=== PATIENT | female | born 1955 | race Caucasian/White ===

== ENCOUNTER 2023-01-03 11:36 | Outpatient (OUT) | payer MEDICARE, SELFPAY ==
[2023-01-03 12:05] LABS: Basophils Percent Auto 0.4 % (0.2-2.0); Eosinophils Absolute Auto 0.1 10^3/uL (0.0-0.7); Eosinophils Percent Auto 1.3 % (0.9-7.0); Hematocrit 36.3 % (36.0-48.0); Hemoglobin 12.2 g/dL (12.0-16.0); Immature Granulocytes Abs Auto 0.02 10^3/uL (0.00-0.03); Immature Granulocytes Pct Auto 0.4 % (0.0-0.5); Lymphocytes Absolute Auto 0.8 10^3/uL (1.2-3.8); Lymphocytes Percent Auto 16.7 % (20.5-60.0); Mean Corpuscular HGB Conc 33.6 g/dL (29.9-35.2); Mean Corpuscular Volume 89.2 fL (81.0-99.0); Mean Platelet Volume 9.9 fL (9.5-13.5); Monocytes Absolute Auto 0.4 10^3/uL (0.3-0.8); Monocytes Percent Auto 9.3 % (1.7-12.0); Neutrophils Absolute Auto 3.3 10^3/uL (1.4-6.5); Neutrophils Percent Auto 71.9 % (43.0-75.0); Platelet Count 175 10^3/uL (150-450); Red Blood Count 4.07 10^6/uL (4.20-5.40); Red Cell Distribution Width 13.1 % (11.0-15.0); White Blood Count 4.5 10^3/uL (4.0-11.0)
[2023-01-03 12:53] LABS: Estimated Average Glucose 105 mg/dL; Glycohemoglobin A1C 5.3 % (4.5-6.2)
[2023-01-03 13:31] LABS: Free T4 0.91 ng/dL (0.76-1.46)
[2023-01-03 13:51] LABS: Alanine Aminotransferase 18 U/L (14-59); Albumin Globulin Ratio 1.2; Albumin Level 3.8 g/dL (3.4-5.0); Alkaline Phosphatase 64 U/L (46-116); Anion Gap 8.8; Aspartate Amino Transferase 16 U/L (15-37); BUN Creatinine Ratio 15.1; Bilirubin Direct 0.1 mg/dL (0.0-0.2); Bilirubin Total 0.7 mg/dL (0.2-1.0); Calcium 8.3 mg/dL (8.5-10.1); Carbon Dioxide 29.5 mmol/L (21.0-32.0); Chloride 103 mmol/L (98-107); Chol HDL Ratio 2.5; Cholesterol 222 mg/dL (<=200); Estimated GFR (African America >60 (>=60); Estimated GFR (Non-African Ame >60 (>=60); Free T3 1.71 pg/mL (2.18-3.98); Globulin 3.2 g/dL; Glucose 81 mg/dL (74-106); HDL Cholesterol 88 mg/dL (40-60); Potassium 3.3 mmol/L (3.5-5.1); Sodium 138 mmol/L (136-145); Triglycerides 27 mg/dL (<=150); VLDL CHOLESTEROL 5.4 mg/dL
== END 2023-01-03 11:37 | disposition home or self-care (01) ==
LOC: LAB 11:41
PROVIDERS: PCP Family Medicine; Visit Provider Family Medicine
DX: E55.9 Vitamin D deficiency, unspecified (principal); Z79.899 Other long term (current) drug therapy; R73.03 Prediabetes; E78.5 Hyperlipidemia, unspecified; E03.9 Hypothyroidism, unspecified
CPT/HCPCS: 36415; 80048; 80061; 80076; 82306; 83036; 84439; 84443; 84481; 85025

== ENCOUNTER 2023-05-10 07:48 | Outpatient (OUT) | payer MEDICARE, SELFPAY ==
--- NOTE | 2023-05-10 07:50 | MM_ITS ---
Patient Name: LITO BONILLA MR#: [id number] : 1955 Exam Date: 05/10/2023 Ordering Doctor: DR Phoenix Gannon . RADIOLOGY REPORT PROCEDURE: MM TOMOSYNTHESIS SCREENING BI COMPARISON: MG MAMM SCREEN 3D NEETA CAD, 05/09/2022. MG MAMM SCREEN 3D NEETA CAD, 05/08/2021. MG MAMM SCREEN NEETA W CAD, 05/03/2020. MG MAMM SCREEN NEETA W CAD, 03/29/2017. INDICATIONS: Screening Calculator Name NCI Breast Cancer Risk Assessment Tool 5 Year Breast Cancer Risk 1.10% Lifetime Breast Cancer Risk 3.80% Personal Breast Cancer No Personal Ovarian Cancer No Treatments None Family Cancers Father with lung cancer at age 43; Brother with liver cancer at age 65; Brother with colon/lung cancer at age 46; Brother with lung cancer at age 74. LOCATION: [facility] BREAST COMPOSITION: Scattered areas fibroglandular density. FINDINGS: DIAGNOSTIC CATEGORY 1--NEGATIVE. RIGHT BREAST: No significant suspicious finding. No significant change has occurred. LEFT BREAST: No significant suspicious finding. No significant change has occurred. RECOMMENDATIONS: ROUTINE MAMMOGRAM AND CLINICAL EVALUATION IN 12 MONTHS. PLEASE NOTE: A NORMAL MAMMOGRAM DOES NOT EXCLUDE THE POSSIBILITY OF BREAST CANCER. A CLINICALLY SUSPICIOUS PALPABLE LUMP SHOULD BE BIOPSIED. Dictated by: Bhavin Johnson M.D. on 05/10/2023 at 14:48 Approved by: Bhavin Johnson M.D. on 05/10/2023 at 14:49
== END 2023-05-10 07:49 | disposition home or self-care (01) ==
LOC: MAMMO 07:48
PROVIDERS: PCP Family Medicine; Visit Provider Family Medicine
DX: Z12.31 Encounter for screening mammogram for malignant neoplasm of breast (principal); Z80.1 Family history of malignant neoplasm of trachea, bronchus and lung; Z80.8 Family history of malignant neoplasm of other organs or systems; Z80.0 Family history of malignant neoplasm of digestive organs
CPT/HCPCS: 77063; 77067

== ENCOUNTER 2023-06-27 10:48 | Outpatient (OUT) | payer MEDICARE, SELFPAY ==
--- OUTSIDE RECORDS SUMMARY | 2023-06-27 11:00 | XMS_ITS | CCD ---
Author Name Unknown Address [address] [place] [address] Organization [facility] Care Team Providers Care Landscaping Specialist Name Role Phone KieshaJosyKelsey Unavailable Panda Hicks Unavailable Panda Santos Unavailable PASCUAL, DR PHOENIX Montaño Primary Care Unavailable TWAN, DR BHAVIN Licona Consulting Unavailable NADERER, DR PHOENIX Montaño Attending Unavailable NADERER, DR PHOENIX Montaño Admitting Unavailable NADERER, DR PHOENIX Montaño Consulting Unavailable NADERER, DR PHOENIX Montaño Admitting Unavailable NADERER, DR PHOENIX Montaño Primary Care Unavailable NADERER, DR PHOENIX Montaño Consulting Unavailable NADERER, DR PHOENIX Montaño Attending Unavailable NADERER, DR PHOENIX Montaño Admitting Unavailable NADERER, DR PHOENIX Montaño Primary Care Unavailable NADERER, DR PHOENIX Montaño Consulting Unavailable NADERER, DR PHOENIX Montaño Attending Unavailable Nadtena, Phoenix Montaño Primary Care Provider AMANDA CHRISTINE Attending Unavailable PASCUAL, PHOENIX Montaño Primary Care Unavailable Medications Current Medications Medication Drug Class(es) Dates Sig (Normalized) Sig (Original) calcium lactate (1 source) Calcium Lactate Active Vitamin D (1 source) Vitamin D Active Completed/Discontinued Medications Medication Drug Class(es) Dates Sig (Normalized) Sig (Original) Calcium Carbonate / vitamin D3 (2 sources) CALCIUM CARBONATE/VITAMIN D3 (CALCIUM + D ORAL) Take by mouth. 0 Active CALCIUM CARBONAT E/VITAMIN D3 (VITAMIN D-3 ORAL) Take by mouth. 0 Active Comment on above: Take by mouth. hyaluronate (2 sources) Start: 09-28-2020 Gel-One September 3 mL levothyroxine (10 sources) l-Thyroxine LEVOTHYROXINE SO DIUM (LEVOTHYROXINE ORAL) Take by mouth. 0 Active take 1 tablet by mouth once mely y Levothyroxine Sodium 75 MCG TAKE 1 TABLET BY MOUTH DAILY Oral for 60 Active Comment on above: Take by mouth. predniSONE 20 mg oral tablet (4 sources) Start: 05-01-2021 take 1 tablet by mouth every twenty-four hours predniSONE 20 MG 1 tablet Orally Once a day for 14 days Apr, Not-Taking sucralfate 1000 mg oral tablet (5 sources) Aluminum Complex Start: 04-11-2021 take 1 tablet by mouth every eight hours Sucralfate 1 GM 1 TABLET Orally THREE TIMES A DAY for 30 day(s) Mar, Not-Taking Suprep Bowel Prep Kit 17.5-3.13-1.6 GM/180ML (7 sources) Start: 10-13-2020 Suprep Bowel Prep Kit 17.5-3.13-1.6 GM/180ML 177 ML DIRECTED AT 4 PM AND 11 PM Orally Twice a day for 1 day(s) September, Not-Taking Triamcinolone (4 sources) Corticosteroid Start: 02-23-2021 Kenalog -40 mg Feb, 40 mg Start: 09-28-2020 Kenalog -40 mg September, 40 mg Problems Active Problems Problem Classification Problem Date Documented Da te Episodic/Chronic Abdominal pain (6 sources) Unspecified abdominal pain; Translations: [Abdominal pain] Onset: 1 Resolved: 2 Episodic Disorders of lipid metabolism (1 source) Hyperlipidemia, unspecified; Translations: [HYPERLIPIDEMIA UNSPECIFIED] Onset: 2 Chronic Esophageal disorders (11 sources) Gastroesophageal reflux disease; Translations: [Gastro-esophageal reflux disease without esophagitis] Onset: 2 Resolved: 2 Chronic Miscellaneous mental health disorders (2 sources) Psychophysiologic insomnia; Translations: [Psychophysiologic insomnia] Onset: 2 Resolved: 2 Chronic Nutritional deficiencies (5 sources) Vitamin D deficiency, unspecified; Translations: [VITAMIN D DEFICIENCY UNSPECIFIED] Onset: 2 Chronic Osteoarthritis (9 sources) Osteoarthritis of right knee joint; Translations: [Unilateral primary osteoarthritis, right knee] Chronic Other gastrointestinal disorders (9 sources) Irritable bowel syndrome; Translations: [Mixed irritable bowel syndrome] Chronic Other gastrointestinal disorders (4 sources) Irritable bowel syndrome with diarrhea; Translations: [Irritable bowel syndrome with diarrhea] Chronic Other gastrointestinal disorders (2 sources) Irritable bowel syndrome with diarrhea Onset: 2 Resolved: 2 Chronic Other gastrointestinal disorders (1 source) Mixed irritable bowel syndrome Onset: 2 Resolved: 2 Chronic Other gastrointestinal disorders (1 source) Rectal discharge; Translations: [Other specified symptoms and signs involving the digestive system and abdomen] Episodic Other liver diseases (3 sources) Lesion of liver; Translations: [Liver disease, unspecified] Chronic Other liver diseases (1 source) Liver disease, unspecified Onset: 2 Resolved: 2 Chronic Other nutritional; endocrine; and metabolic disorders (9 sources) Intolerance to lactose; Translations: [Lactose intolerance, unspecified] Chronic Other nutritional; endocrine; and metabolic disorders (1 source) Lactose intolerance, unspecified Onset: 2 Resolved: 2 Chronic Other screening for suspected conditions (not mental disorders or infectious disease) (4 sources) Encounter for screening mammogram for malignant neoplasm of breast; Translations: [ENC SCR MAMMO MALIG NEOPLASM BREAST] Onset: 2 Episodic Residual codes; unclassified (1 source) Sleep apnea; Translations: [Sleep apnea, unspecified] Chronic Residual codes; unclassified (1 source) Daytime somnolence; Translations: [Other hypersomnia] Chronic Residual codes; unclassified (1 source) Obstructive sleep apnea syndrome; Translations: [Obstructive sleep apnea (adult) (pediatric)] Chronic Residual codes; unclassified (1 source) Other hypersomnia Onset: 2 Resolved: 2 Chronic Residual codes; unclassified (1 source) Obstructive sleep apnea (adult) (pediatric) Onset: 2 Resolved: 2 Chronic Residual codes; unclassified (1 source) Family history of malignant neoplasm of digestive organs; Translations: [FAM HX MALIG NEOPLASM DIGESTIV ORGN] Onset: 2 Episodic Residual codes; unclassified (1 source) Family history of malignant neoplasm of trachea, bronchus and lung; Translations: [FAM HX MALIG NEOPLSM TRACH BRON LNG] Onset: 2 Episodic Residual codes; unclassified (1 source) Family history of malignant neoplasm of other organs or systems; Translations: [FAM HX MALIG NEOPLASM OTH ORGN/SYS] Onset: 2 Episodic Thyroid disorders (7 sources) Acquired hypothyroidism; Translations: [Hypothyroidism, unspecified] Onset: 2 Resolved: 2 Chronic Past or Other Problems Problem Classification Problem Date Documented Da te Episodic/Chronic Abdominal hernia (1 source) Ventral hernia without obstruction or gangrene Onset: 06-15-2021 Resolved: 06-15-2021 Episodic Diabetes mellitus without complication (1 source) Prediabetes; Translations: [PREDIABETES] Onset: 10-25-2021 Episodic Other aftercare (1 source) Other penitentiary (current) drug therapy; Translations: [OTH JAIL CURRENT DRUG THERAPY] Onset: 10-25-2021 Episodic Other and unspecified benign neoplasm (1 source) Hemangioma of intra-abdominal structures Onset: 07-18-2021 Resolved: 07-18-2021 Episodic Other connective tissue disease (1 source) Trochanteric bursitis, left hip; Translations: [Trochanteric bursitis, left hip M70.62] Onset: 02-23-2021 Resolved: 02-23-2021 Episodic Other gastrointestinal disorders (2 sources) Diarrhea, unspecified; Translations: [Diarrhea R19.7] Onset: 03-20-2021 Resolved: 04-10-2021 Episodic Other non-traumatic joint disorders (1 source) Pain in left hip; Translations: [Left hip pain M25.552] Onset: 02-23-2021 Resolved: 02-23-2021 Episodic Other nutritional; endocrine; and metabolic disorders (1 source) Abnormal weight loss Onset: 04-10-2021 Resolved: 04-10-2021 Episodic Results Test Name Value Interpretation Reference Range Facility [facility] 07-30-2022 [facility] Office Visit (MARCO A ) ALESHA BONILLA ([id number]) 1955 F Date Time Provider Department 07/30/22 10:00 AM AMANDA CHRISTINE During your visit today, we recorded the following information about you: Temperature Pulse Blood pressure Weight 97.8 degrees 65/minute 109/59 65.8 kg Height 1.676 m Amanda Christine PA-C 07/30/2022 11:25 AM Signed COLORECTAL SURGERY New/Consult Alesha Bonilla 67 year old Chief Complaint: mucous drainage History of Present Illness: Alesha Bonilla is a 67 year old female coming to the [facility] office in regards to mucous drainage/leakage.[place] ent notes clear sticky discharge that is odorous after bowel movement and/or shower. She has a history of issues with diarrhea in the past ( 2 years ago). In which a CT scan,MRI and colonoscopy ( brought to front services agent to be scanned in) were completed and did not show anything concerning. Today she reports: Onset of issues: 2 years ago diarrhea started, sticky discharge is maybe a year Stool frequency: used to be everyday, now not normal bowel movements Stool type: most of the time like soft serve ice cream Stool straining: no Incomplete evacuation: sometimes doesn't feel like she empties them Current bowel regimen:no but started eating a fibrous breakfast Using hemorrhoid cream Use of enemas or suppositories: no Abdominal pressure/pain: no Anorectal pain: sometimes will feel like pressure Feelings of prolapse :no but maybe little hemorrhoids Do you have accidental bowel leakage, fecal incontinence, or urgency with bowel movements? -mucous leakage feels like it is in her gluteal cleft, not every day -no fecal incontinence except sometimes with sneezing Blood or mucous: bleeding sometimes , if she is going several times Hx of /vaginal deliveries: 3 kids, vaginal births Issues with urination: no Fevers or chills: no Overall getting better/worse/staying the same: staying the same Previous anorectal surgery or invasive procedures: no, did not get the hemorrhoidectomy Family hx of Crohns/UC/colitis: no Family of colon or rectal cancer: no Colonoscopy/flex sigmoidoscopy in the past: a little over a year ago, normal per report Dr. Turner General Surgery 02/15/2021: IMPRESSION 1. Rectal bleeding most likely secondary to hemorrhoids rule out colon cancer polyps 2. Abdominal bloating 3. Ventral hernia incarcerated 4. Chronic diarrhea ? ASSESSMENT AND PLAN Colonoscopy and EGD with possible biopsy or polypectomy. I discussed the risks, benefits, alternatives to the above which may include perforation or bleeding or risks of anesthesia. They understood all the above and wished to proceed. Patient also warned about possible anal stricture. She understands she should take a stool softener twice daily and bulk laxative fiber supplement twice daily and Sitz baths 3 times a day and after a bowel movement for the 1st few weeks. She should take the stool softener and bulk fiber for 6 weeks. Hemorrhoidectomy with LigaSure device at time of colonoscopy. Risks benefits alternatives to procedure may include infection, bleeding, temporary incontinence, or pain. No past medical history on file. No past surgical history on file. Current Outpatient Medications Medication Sig Dispense Refill LEVOTHYROXINE SODIUM (LEVOTHYROXINE ORAL) Take by mouth. CALCIUM CARBONATE/VITAMIN D3 (CALCIUM + D ORAL) Take by mouth. CALCIUM CARBONATE/VITAMIN D3 (VITAMIN D-3 ORAL) Take by mouth. (Patient not taking: Reported on 07/30/2022) No current facility-administered medications for this visit. ALLERGIES No Known Allergies No family history on file. Social History Tobacco Use Smoking status: Never Smokeless tobacco: Never Substance Use Topics Alcohol use: Not Currently Drug use: Never Review of Systems / PACC screen: Do you have difficulty climbing a full flight of stairs without feeling short of breath? no Do you require oxygen for your breathing or have your gone to an emergency department because of breathing problems? no Are you on dialysis or have you been told that your kidneys do not work well as they should? no Do have an implanted cardiac device (pacemaker, defibrillator etc.) that has not been checked in the last 6 months? no Have you had an organ transplant? no Have you been told that you had excessive bleeding during surgical procedures or do you take blood thinning medications other than aspirin? no Have you ever had a heart attack, heart stents/surgery, valve problems, or other heart problems? no Have you had a stroke, seizures, or unexplained loss of consciousness? no Do you have a neurologic condition like Parkinson's disease or multiple sclerosis? no Have you or a blood relative had a life-threatening reaction to anesthesia? no Do you have cirrhosis of the liver or other liver disea (more content not included)... Normal [facility] HISTORY PHYSICALon HISTORY PHYSICAL HNO ID: [id number] Author: Amanda Christine PA-C Service: ? Author Type: Physician Windows Deployment Technician Type: HANDP Filed: 07/30/2022 11:25 AM Note Text: COLORECTAL SURGERY New/Consult Alesha Bonilla 67 year old Chief Complaint: mucous drainage History of Present Illness: Alesha Bonilla is a 67 year old female coming to the [facility] office in regards to mucous drainage/leakage.[place] ent notes clear sticky discharge that is odorous after bowel movement and/or shower. She has a history of issues with diarrhea in the past ( 2 years ago). In which a CT scan,MRI and colonoscopy ( brought to front services agent to be scanned in) were completed and did not show anything concerning. Today she reports: Onset of issues: 2 years ago diarrhea started, sticky discharge is maybe a year Stool frequency: used to be everyday, now not normal bowel movements Stool type: most of the time like soft serve ice cream Stool straining: no Incomplete evacuation: sometimes doesn't feel like she empties them Current bowel regimen:no but started eating a fibrous breakfast Using hemorrhoid cream Use of enemas or suppositories: no Abdominal pressure/pain: no Anorectal pain: sometimes will feel like pressure Feelings of prolapse :no but maybe little hemorrhoids Do you have accidental bowel leakage, fecal incontinence, or urgency with bowel movements? -mucous leakage feels like it is in her gluteal cleft, not every day -no fecal incontinence except sometimes with sneezing Blood or mucous: bleeding sometimes , if she is going several times Hx of /vaginal deliveries: 3 kids, vaginal births Issues with urination: no Fevers or chills: no Overall getting better/worse/staying the same: staying the same Previous anorectal surgery or invasive procedures: no, did not get the hemorrhoidectomy Family hx of Crohns/UC/colitis: no Family of colon or rectal cancer: no Colonoscopy/flex sigmoidoscopy in the past: a little over a year ago, normal per report Dr. Turner General Surgery 02/15/2021: IMPRESSION 1. Rectal bleeding most likely secondary to hemorrhoids rule out colon cancer polyps 2. Abdominal bloating 3. Ventral hernia incarcerated 4. Chronic diarrhea ? ASSESSMENT AND PLAN Colonoscopy and EGD with possible biopsy or polypectomy. I discussed the risks, benefits, alternatives to the above which may include perforation or bleeding or risks of anesthesia. They understood all the above and wished to proceed. Patient also warned about possible anal stricture. She understands she should take a stool softener twice daily and bulk laxative fiber supplement twice daily and Sitz baths 3 times a day and after a bowel movement for the 1st few weeks. She should take the stool softener and bulk fiber for 6 weeks. Hemorrhoidectomy with LigaSure device at time of colonoscopy. Risks benefits alternatives to procedure may include infection, bleeding, temporary incontinence, or pain. No past medical history on file. No past surgical history on file. Current Outpatient Medications Medication Sig Dispense Refill LEVOTHYROXINE SODIUM (LEVOTHYROXINE ORAL) Take by mouth. CALCIUM CARBONATE/VITAMIN D3 (CALCIUM + D ORAL) Take by mouth. CALCIUM CARBONATE/VITAMIN D3 (VITAMIN D-3 ORAL) Take by mouth. (Patient not taking: Reported on 07/30/2022) No current facility-administered medications for this visit. ALLERGIES No Known Allergies No family history on file. Social History Tobacco Use Smoking status: Never Smokeless tobacco: Never Substance Use Topics Alcohol use: Not Currently Drug use: Never Review of Systems / PACC screen: Do you have difficulty climbing a full flight of stairs without feeling short of breath? no Do you require oxygen for your breathing or have your gone to an emergency department because of breathing problems? no Are you on dialysis or have you been told that your kidneys do not work well as they should? no Do have an implanted cardiac device (pacemaker, defibrillator etc.) that has not been checked in the last 6 months? no Have you had an organ transplant? no Have you been told that you had excessive bleeding during surgical procedures or do you take blood thinning medications other than aspirin? no Have you ever had a heart attack, heart stents/surgery, valve problems, or other heart problems? no Have you had a stroke, seizures, or unexplained loss of consciousness? no Do you have a neurologic condition like Parkinson's disease or multiple sclerosis? no Have you or a blood relative had a life-threatening reaction to anesthesia? no Do you have cirrhosis of the liver or other liver disease? no Have you had a blood clot within the past year? no Do you take insulin or other injections for diabetes? no Do you have sleep apnea or have you been told you may have sleep apnea? Not sure Do you have other implanted devices (deep brain stimulator, spinal cord stimula (more content not included)... Normal [facility] MG MAMM SCREEN 3D NEETA CADon 05-09-2022 MG MAMM SCREEN 3D NEETA CAD Patient: ALESHA BONILLA Exam Date: 05/09/2022 : 1955 Gender:F Ordering : DR PHOENIX GARNER . Admission #: [id number] Family : Order #: [id number] CLICK HERE TO VIEW EXAM RADIOLOGY REPORT PROCEDURE: MAMMOGRAM SCREENING 3D BILATERAL CAD COMPARISON: MG MAMM SCREEN NEETA W CAD, 05/03/2020. MG MAMM SCREEN NEETA W CAD, 04/30/2019. MG MAMM SCREEN NEETA W CAD, 03/29/2017. MG MAMM SCREEN 3D NEETA CAD, 05/08/2021. INDICATIONS: Screening mammography Calculator Name NCI Breast Cancer Risk Assessment Tool 5 Year Breast Cancer Risk 1.10% Lifetime Breast Cancer Risk 4.00% Personal Breast Cancer No Personal Ovarian Cancer No Treatments None Family Cancers Father with lung cancer at age 43; Brother with liver cancer at age 65; Brother with colon/lung cancer at age 46; Brother with lung cancer at age 74. LOCATION: [facility] BREAST COMPOSITION: Scattered areas fibroglandular density. FINDINGS: DIAGNOSTIC CATEGORY 1--NEGATIVE. RIGHT BREAST: No significant suspicious finding. No significant change has occurred. LEFT BREAST: No significant suspicious finding. No significant change has occurred. RECOMMENDATIONS: ROUTINE MAMMOGRAM AND CLINICAL EVALUATION IN 12 MONTHS. PLEASE NOTE: A NORMAL MAMMOGRAM DOES NOT EXCLUDE THE POSSIBILITY OF BREAST CANCER. A CLINICALLY SUSPICIOUS PALPABLE LUMP SHOULD BE BIOPSIED. Dictated by: Bhavin Johnson M.D. on 05/09/2022 at 10:53 Approved by: Bhavin Johnson M.D. on 05/09/2022 at 10:59 Normal [facility] CBC AUTO DIFFon 10-18-2021 BASO # 0.0 103/ul Normal 0.0-0.1 [facility] Comment on above: Performed By: #### C BC #### [facility] [address] [place] [address] Dr. William García Basophils/100 WBC (Bld) 0.8 % Normal 0.2-2.0 [facility] Comment on above: Performed By: #### C BC #### [facility] [address] [place] [address] Dr. William García EO # 0.1 103/ul Normal 0.0-0.7 [facility] Comment on above: Performed By: #### C BC #### [facility] [address] [place] [address] Dr. William García Eosinophils/100 WBC (Bld) 2.0 % Normal 0.9-7.0 [facility] Comment on above: Performed By: #### C BC #### [facility] [address] [place] [address] Dr. William García Erythrocyte distribution width (RBC) [Ratio] 12.7 % Normal 11.0-15.0 [facility] Comment on above: Performed By: #### C BC #### [facility] [address] [place] [address] Dr. William García Hematocrit (Bld) [Volume fraction] 39.2 % Normal 36.0-48.0 [facility] Comment on above: Performed By: #### C BC #### [facility] [address] [place] [address] Dr. William García Hemoglobin (Bld) [Mass/Vol] 12.8 g/dL Normal 12.0-16.0 [facility] Comment on above: Performed By: #### C BC #### [facility] [address] [place] [address] Dr. William García IG # 0.01 10e3/ul Normal 0.00-0.03 [facility] Comment on above: Performed By: #### C BC #### [facility] [address] [place] [address] Dr. William García IG % 0.2 % Normal 0.0-0.5 [facility] Comment on above: Performed By: #### C BC #### [facility] [address] [place], [place] [id number] Dr. William García LYMPH # 0.9 103/ul Critically low 1.2-3.8 [facility] Comment on above: Performed By: #### C BC #### [facility] [address] [place] [address] Dr. William García Lymphocytes/100 WBC (Bld) 17.4 % Critically low 20.5-60.0 [facility] Comment on above: Performed By: #### C BC #### [facility] [address] [place] [address] Dr. William García MANUAL DIFF REQ NO Normal [facility] Comment on above: Performed By: #### C BC #### [facility] [address] [place] [address] Dr. William García MCH (RBC) [Entitic mass] 30.0 pg Normal 26.7-34.0 [facility] Comment on above: Performed By: #### C BC #### [facility] [address] [place] [address] Dr. William García MCHC (RBC) [Mass/Vol] 32.7 g/dL Normal 29.9-35.2 [facility] Comment on above: Performed By: #### C BC #### [facility] [address] [place] [address] Dr. William García MCV (RBC) [Entitic vol] 91.8 fL Normal 81.0-99.0 [facility] Comment on above: Performed By: #### C BC #### [facility] [address] [place] [address] Dr. William García MONO # 0.5 103/ul Normal 0.3-0.8 [facility] Comment on above: Performed By: #### C BC #### [facility] [address] [place] [address] Dr. William García Monocytes/100 WBC (Bld) 10.7 % Normal 1.7-12.0 [facility] Comment on above: Performed By: #### C BC #### [facility] [address] [place] [address] Dr. William García NEUT # 3.5 103/ul Normal 1.4-6.5 [facility] Comment on above: Performed By: #### C BC #### [facility] [address] [place] [address] Dr. William García Neutrophils/100 WBC (Bld) 68.9 % Normal 43.0-75.0 [facility] Comment on above: Performed By: #### C BC #### [facility] [address] [place] [address] Dr. William García Platelet mean volume (Bld) [Entitic vol] 10.3 fL Normal 9.5-13.5 [facility] Comment on above: Performed By: #### C BC #### [facility] [address] [place] [address] Dr. William García PLT 189 103/ul Normal 150-450 [facility] Comment on above: Performed By: #### C BC #### [facility] [address] [place] [address] Dr. William García RBC 4.27 106/ul Normal 4.20-5.40 [facility] Comment on above: Performed By: #### C BC #### [facility] [address] [place] [address] Dr. William García WBC 5.1 103/ul Normal 4.0-11.0 [facility] Comment on above: Performed By: #### C BC #### [facility] [address] [place] [address] Dr. William García FREE T3on 10-18-2021 FREE T3 2.63 pg/mlL Normal 2.18-3.98 [facility] Comment on above: Performed By: #### F T3, TSH, AST, LIPID, ALT, BMP ####[facility] [id number] [address]Dr. William García FREE T4on 10-18-2021 Free T4 [Mass/Vol] 1.42 ng/dL Normal 0.76-1.46 [facility] Comment on above: Performed By: #### F T4, VITAD #### [facility] [address] [address] [address] William García GLYCOHEMOGLOBIN A1Con 2021 ADA RECOMMENDATION SEE BELOW Normal [facility] Comment on above: Result Comment: ADA RECOMMENDED LIMIT 4.0 - 6.0 ADA THERAPEUTIC TARGET < 7.0 ACTION SUGGESTED > 7.0 Performed By: #### A 1C #### [facility] [address] [address] [address] William García Glucose [Mass/Vol] 105 mg/dL Normal [facility] Comment on above: Performed By: #### A 1C #### [facility] [address] [address] [address] William García HbA1c (Bld) [Mass fraction] 5.3 % Normal 4.5-6.2 [facility] Comment on above: Performed By: #### A 1C #### [facility] [address] [address] [address] William García LIPID PROFILEon 10-18-2021 CHOL-HDL RATIO NORM SEE BELOW Normal [facility] Comment on above: Result Comment: 3.3 - 4.4 LOW RISK 4.4 - 7.1 AVERAGE RISK 7.1 - 11.0 MODERATE RISK >11.0 HIGH RISK Performed By: #### F T3, TSH, AST, LIPID, ALT, BMP ####[facility] [address] [id number] García Cholesterol [Mass/Vol] 222 mg/dL Critically high <=200 [facility] Comment on above: Performed By: #### F T3, TSH, AST, LIPID, ALT, BMP ####[facility] [address] [id number] García Cholesterol in HDL [Mass/Vol] 76 mg/dL Critically high 40-60 [facility] Comment on above: Performed By: #### F T3, TSH, AST, LIPID, ALT, BMP ####[facility] [address] [id number]. William García Cholesterol in LDL [Mass/Vol] 136.4 mg/dL Normal [facility] Comment on above: Performed By: #### F T3, TSH, AST, LIPID, ALT, BMP ####[facility] [address] [id number]. William García Cholesterol.total/Cho lesterol in HDL [Mass ratio] 2.9 {ratio} Normal [facility] Comment on above: Performed By: #### F T3, TSH, AST, LIPID, ALT, BMP ####[facility] [address] [address]Dr. William García HDL NORMAL > or = 60 mg/dl - LO W CARDIOVASCULAR RISK <40 mg/dl - HIGH CARDIOVASCULAR RISK Normal [facility] Comment on above: Performed By: #### F T3, TSH, AST, LIPID, ALT, BMP ####[facility] [address] [address]Dr. William García LDL CALC NORMAL SEE BELOW Normal [facility] Comment on above: Result Comment: <100 mg/dl OPTIMAL 100 - 129 mg/dl NEAR OR ABOVE OPTIMAL 130 - 159 mg/dl BORDERLINE HIGH 160 - 189 mg/dl HIGH >190 mg/dl VERY HIGH Performed By: #### F T3, TSH, AST, LIPID, ALT, BMP ####[facility] [address] [address]Dr. William García Triglyceride [Mass/Vol] 48 mg/dL Normal <=150 [facility] Comment on above: Performed By: #### F T3, TSH, AST, LIPID, ALT, BMP ####[facility] [address] [address]Dr. William García VLDL CALC 9.6 mg/dL Normal [facility] Comment on above: Performed By: #### F T3, TSH, AST, LIPID, ALT, BMP ####[facility] [address] [address]Dr. William García PROF CHEM 8 (BAS METB)on Anion gap [Moles/Vol] 11.6 mmol/L Normal [facility] Comment on above: Performed By: #### F T3, TSH, AST, LIPID, ALT, BMP ####[facility] [address] [address]Dr. William García Calcium [Mass/Vol] 9.0 mg/dL Normal 8.5-10.1 [facility] Comment on above: Performed By: #### F T3, TSH, AST, LIPID, ALT, BMP ####[facility] [address] [address]Dr. William García Chloride [Moles/Vol] 106 mmol/L Normal 98-107 [facility] Comment on above: Performed By: #### F T3, TSH, AST, LIPID, ALT, BMP ####[facility] [address] [address]Dr. William García CO2 [Moles/Vol] 28.4 mmol/L Normal 21.0-32.0 [facility] Comment on above: Performed By: #### F T3, TSH, AST, LIPID, ALT, BMP ####[facility] [address] [address]Dr. William García Creatinine [Mass/Vol] 0.64 mg/dL Normal 0.55-1.02 [facility] Comment on above: Performed By: #### F T3, TSH, AST, LIPID, ALT, BMP ####[facility] [address] [address]Dr. William García EGFR-AF WALLISIAN >60 Normal >=60 [facility] Comment on above: Performed By: #### F T3, TSH, AST, LIPID, ALT, BMP ####[facility] [address] [address]Dr. William García EGFR-NON AF WALLISIAN >60 Normal >=60 [facility] Comment on above: Performed By: #### F T3, TSH, AST, LIPID, ALT, BMP ####[facility] [address] [address]Dr. William García Glucose [Mass/Vol] 87 mg/dL Normal 74-106 [facility] Comment on above: Performed By: #### F T3, TSH, AST, LIPID, ALT, BMP ####[facility] [address] [address]Dr. William García Potassium [Moles/Vol] 4.0 mmol/L Normal 3.5-5.1 [facility] Comment on above: Performed By: #### F T3, TSH, AST, LIPID, ALT, BMP ####[facility] [address] [address]Dr. William García Sodium [Moles/Vol] 142 mmol/L Normal 136-145 [facility] Comment on above: Performed By: #### F T3, TSH, AST, LIPID, ALT, BMP ####[facility] [address] [address]Dr. William García Urea nitrogen [Mass/Vol] 14.0 mg/dL Normal 7.0-18.0 [facility] Comment on above: Performed By: #### F T3, TSH, AST, LIPID, ALT, BMP ####[facility] [address] [address]Dr. William García Urea nitrogen/Creatinine [Mass ratio] 21.9 mg/mg Normal [facility] Comment on above: Performed By: #### F T3, TSH, AST, LIPID, ALT, BMP ####[facility] [address] [address]DrBlanca García SGOTon 10-18-2021 AST [Catalytic activity/Vol] 18 U/L Normal 15-37 [facility] Comment on above: Performed By: #### F T3, TSH, AST, LIPID, ALT, BMP #### [facility] [address] [address] DrBlanca García SGPTon 10-18-2021 ALT [Catalytic activity/Vol] 24 U/L Normal 14-59 [facility] Comment on above: Performed By: #### F T3, TSH, AST, LIPID, ALT, BMP ####[facility] [address] [address]DrBlanca García TSHon 10-18-2021 TSH 0.729 uIU/mL Normal 0.358-3.740 [facility] Comment on above: Performed By: #### F T3, TSH, AST, LIPID, ALT, BMP ####[facility] [address] [place], [place] [address]PpDr. William García TSH RANGE SEE BELOW Normal [facility] Comment on above: Result Comment: <0.3 4 UIU/ml HYPERTHYROID 0.34-5.60 UIU/ml EUTHYROID >5.60 UIU/ml HYPOTHYROID Performed By: #### F T3, TSH, AST, LIPID, ALT, BMP ####[facility] [address] [place], [place] [address]CvDr. William García VITAMIN D 25 OHon 10-18-2021 VIT D 25-OH 25.2 ng/mL Normal [facility] Comment on above: Performed By: #### F T4, VITAD #### [facility] [address] [place], [place] [address] Dr. William García VIT D RANGES SEE BELOW Normal [facility] Comment on above: Result Comment: <20 ng/mL Vit D deficient 20 - <30 ng/mL Vit D insufficient 30 - 100 ng/mL Vit D sufficient >100 ng/mL Potential Toxicity Performed By: #### F T4, VITAD #### [facility] [address] [place], [place] [address] Dr. William García MR abdomen wo/w conon 2021 MR abdomen wo/w [place] [address] MRI Report Signed Patient: Alesha Bonilla MR#: [id number] 57 : 1955 Acct:[id number] Age/Sex: 65 / F ADM Date: 07/05/21 Loc: [facility] Room: Type: [facility] Attending Dr: Panda Hicks DO Ordering Provider: Panda Hicks Jr, DO Date of Service: 07/05/21 MR/MR abdomen wo/w con: Liver lesion Copies to: Panda Hicks Jr, DO MRI OF THE ABDOMEN WITHOUT AND WITH INTRAVENOUS CONTRAST CLINICAL DATA: Abdominal pain, nausea, diarrhea and weight loss. Hepatic lesions and mild biliary prominence on CT. COMPARISON: CT 06/19/2021 Multiecho, multiplanar imaging of the abdomen was performed before and after intravenous administration of 13 mL of ProHance. There are multiple T2 high signal nodular areas within the liver. Three of the areas are present at the dome. The largest area is lobulated and accurate measurements are difficult however it could measure up to 4 cm in size. All of these lesions demonstrate peripheral nodular enhancement and filling in over time. These characteristics are suggestive of hemangiomas. The other smaller areas show no associated enhancement and are thought to be cysts. The largest cyst in the left hepatic lobe measures approximately 7 mm in size. No gallstones are noted. The common duct measures 6 mm proximally and 5 mm distally. The pancreatic duct is diffusely prominent measuring approximately 5 mm distally and 7 mm at the body. No discrete pancreatic masses are identified. The spleen and adrenal glands are unremarkable. There is a left renal cyst which measures 5.4 cm in size. No hydronephrosis is seen. The abdominal aorta is normal caliber. No enlarged lymph nodes are identified. There is no ascites. There is no disproportionate small bowel distention. There is levoscoliotic curvature. MR/MR abdomen wo/w con IMPRESSION: HEPATIC CYSTS AND MULTIPLE HEMANGIOMAS AT THE HEPATIC DOME. LEFT RENAL CYST. COMMON AND PANCREATIC DUCTAL DILATATION, UNDETERMINED ETIOLOGY. Impression dictated by: Isabel Grant M.D.07/05/2021 3:21 PM Dictation Location: [address] [place] [address] Transcribed By: [facility] 07/05/21 1521 Dictated By: Isabel Grant MD 07/05/21 1504 Signed By: 07/05/21 1521 [facility] [address] abdomen pelvis w [facility] CT abdomen pelvis w [facility] [place] [address] CT Scan Report Signed Patient: Alesha Bonilla MR#: [id number] 57 : 1955 Acct:[id number] Age/Sex: 65 / F ADM Date: 06/19/21 [facility] Room: Type: [facility] Attending Dr: Panda Hicks DO Ordering Provider: Panda Hicks Jr, DO Date of Service: 06/19/21 CT/CT abdomen pelvis w con: Abdominal pain Copies to: Panda Hicks Jr, DO CT abdomen and pelvis 06/19/2021. CLINICAL DATA: Abdominal pain with nausea and diarrhea. TECHNIQUE: CT of the abdomen and pelvis was performed with intravenous and oral contrast. Axial, sagittal, and coronal reconstructions were created and reviewed. This CT exam was performed using one or more of the following dose reduction techniques: Automated exposure control, adjustment of the mA and/or kV according to patient size, or use of iterative reconstruction technique. COMPARISON: None. FINDINGS: Images of the lower chest demonstrate mild dependent subpleural atelectasis in the right lung base. There are 2.4 cm and 1.3 cm peripherally enhancing low attenuation lesions in the right lobe of the liver superiorly. These findings could represent hemangiomas. There are also several tiny nonenhancing low attenuation lesions measuring up to 0.8 cm in both lobes of the liver, more in the left than right. Although too small to accurately characterize, these findings probably represent cysts. There is a 5.7 cm cyst arising from the mid to upper pole of the left kidney. The spleen, right kidney, and both adrenal glands appear unremarkable. The pancreatic duct is abnormally dilated (0.8 cm diameter). The etiology and significance of this finding is unknown. An obstructing ampullary lesion is not excluded. The common bile duct is also mildly dilated (0.8 cm diameter). The urinary bladder appears unremarkable. No acute intestinal abnormality is identified. The appendix is not seen, however, there are no secondary signs of acute appendicitis. No free intra-abdominal air or ascites is visualized. There is lumbar spinal curvature. There are small periumbilical ventral hernias containing fat. CT/CT abdomen pelvis w con IMPRESSION: 1. Peripherally enhancing low attenuation lesions in the right lobe of the liver superiorly, possibly hemangiomas. 2. Several tiny indeterminate hypodense liver lesions, probably cysts. 3. Large left renal cyst. 4. Biliary and pancreatic ductal dilatation. An obstructing ampullary lesion is not excluded. Impression dictated by: Humza Scanlon Jr., M.D.06/19/2021 1:50 PM Dictation Location: [place] [address] Transcribed By: [facility] 06/19/21 1357 Dictated By: Humza Scanlon Jr, MD 06/19/21 1333 Signed By: 06/19/21 1358 [facility] ISTAT XRay CREon 06-19-2021 Creatinine [Mass/Vol] 0.8 mg/dL Normal 0.6-1.3 [facility] Comment on above: Result Comment: ER/E SD physician is notified/shown all ISTAT results. Critical values may be confirmed by laboratory testing if deemed necessary by ER attending doctor. Performed By: #### I SCRE #### [facility] [address] Point of Care testing , ISTAT GFR ( > 60 Normal [facility] Comment on above: Result Comment: GFR estimated reference range: According to KDOQI guidelines, <60 ml/min/1.73m2 is sufficient to diagnose a patient with chronic kidney disease. PERFORMED BY: [place] [address] PATHOLOGIST MEDICAL CODER DON BOSTON M.D. Performed By: #### I SCRE #### [facility] [address] [place] [address] Point of Care testing , ISTAT GFR (Non- Am > 60 Normal [facility] Comment on above: Performed By: #### I SCRE #### [facility] [address] [place] [address] Point of Care testing , FREE T3 [facility] 06-01-2021 Triiodothyronine (T3) Free 2.5 pg/mL Normal 2.0-4.4 [facility] Comment on above: Performed By: #### F T3LC #### [facility] [address] [address] [address] William García VIT D 25-OH [facility] 2021 Vitamin D, 25-Hydroxy 23.2 ng/mL Critically low 30.0-100.0 [facility] Comment on above: Result Comment: Melissa min D deficiency has been defined by the [place] of Medicine and an Endocrine Society practice guideline as a level of serum 25-OH vitamin D less than 20 ng/mL (1,2). The Endocrine Society went on to further define vitamin D insufficiency as a level between 21 and 29 ng/mL (2). 1. IOM ([place] of Medicine). 2010. Dietary reference intakes for calcium and D. [place]: The National Academies Press. 2. Ashley MF, Nicole NC, Mac ALMEIDA, et al. Evaluation, treatment, and prevention of vitamin D deficiency: an Endocrine Society clinical practice guideline. JCEM. 2010; 96(7):1911-30. Performed By: #### V ITADLC #### [facility] [address] [place] [address] Dr. William García FREE T4on 05-31-2021 Free T4 [Mass/Vol] 0.96 ng/dL Normal 0.78-2.19 [facility] Comment on above: Performed By: #### F T4 #### [facility] [address] [address] [address] William García TSHon 05-31-2021 TSH 9.014 uIU/mL Critically high 0.470-4.680 [facility] Comment on above: Performed By: #### T SH #### [facility] [address] [address] [address] William García TSH RANGE SEE BELOW Normal [facility] Comment on above: Result Comment: <0.3 4 UIU/ml HYPERTHYROID 0.34-5.60 UIU/ml EUTHYROID >5.60 UIU/ml HYPOTHYROID Performed By: #### T SH #### [facility] [address] [place] [address] Dr. William Montelongo 04-03-2021 L - -------- Specimen: [id number] Received: 04/03/21 Status: DK [place]enton Num: [id number] Spec Type: Surgical Subm Dr: Panda Hicks Jr, DO Tissues: A Colon - Polyp (ASCENDING COLON POLYP) B Colon Biopsy (COLON BX) Procedures: HE Stain/4, Gross/Micro L4/2 -------- Patient Age/Sex Location Account Attending Physician -------- Alesha Bonilla 65/F [id number] Panda Hicks Jr, DO -------- SPEC NUM: [id number] RECD: 04/03/21 STATUS: DK [place] NUM: [id number] HARRIETT: 04/03/21- [facility] DR: Panda Hicks Jr, DO ENTERED: 04/03/21 [facility] DR: SCOTTY TYPE: Surgical DEPT: S ENTERED BY: [id number] RECV BY: [id number] ORDERED: HE Stain/4, Gross/Micro L4/2 ORDERED: HE Stain/4, Gross/Micro L4/2 Pathological Diagnosis A. Ascending colon polyp, polypectomy: - Tubular adenoma. B. Colon, biopsy: - Colonic mucosa with no significant pathologic findings. Clinical Information History of polyps Gross Description A. Received in formalin labeled with the patient's name, number and ascending colon polyp is a 0.8 cm walton-pink, sessile mucosal tissue fragment. The presumed resection margin is inked blue and the fragment is bisected. Entirely submitted in one cassette labeled A1. (SM/YJ) B. Received in formalin labeled with the patient's name, number and colon biopsy are 2 walton-pink tissue fragments, 0.3 cm and 0.5 cm. Entirely submitted in one cassette labeled B1. (SM/YJ) -------- Specimen: [id number] Received: 04/03/21 Status: DK [place] Num: [id number] Spec Type: Surgical Subm Dr: Panda Hicks Jr, DO Tissues: A Colon - Polyp (ASCENDING COLON POLYP) B Colon Biopsy (COLON BX) Procedures: HE Stain/4, Gross/Micro L4/2 -------- Patient: Alesha Bonilla [id number] (Continued) -------- Specimen: [id number] Received: 04/03/21 (Continued) Signed (signature on file) Anna Baker MD 04/04/21 0025 -------- Specimen: [id number] Received: 04/03/21 Status: DK [place] Num: [id number] Spec Type: Surgical Subm Dr: Panda Hicks Jr, DO Tissues: A Colon - Polyp (ASCENDING COLON POLYP) B Colon Biopsy (COLON BX) Procedures: HE Stain/4, Gross/Micro L4/2 -------- Patient: Alesha Bonilla [id number] (Continued) -------- Specimen: [id number] Received: 04/03/21 (Continued) Microscopic Description A. Two glass slides with H E stained material have been examined. The microscopic findings support the above pathologic diagnosis. B. Two glass slides with H E stained material have been examined. The microscopic findings support the above pathologic diagnosis. CPT Codes 00800?2 -------- -------- Specimen: [id number] Received: 04/03/21 Status: DK [place] Num: [id number] Spec Type: Surgical Subm Dr: Panda Hicks Jr, Tissues: A Colon - Polyp (ASCENDING COLON POLYP) B Colon Biopsy (COLON BX) Procedures: HE Stain/4, Gross/Micro L4/2 -------- Patient: Alesha Bonilla [id number] (Continued) -------- Signed (signature on file) Anna Baker MD 04/04/21 4672 [facility] Vital Signs Date Time Vital Sign Value Performing Clinician Facility 07-30-2022 09:36-0400 Body height 167.6 cm Amanda Christine PA-C Work Phone: [facility] 07-30-2022 09:36-0400 Body temperature 97.81 [degF] Amanda Abdirahmankovic PA-C Work Phone: [facility] 07-30-2022 09:36-0400 Body weight 65.77 kg Amanda Sankovic PA-C Work Phone: [facility] 07-30-2022 09:36-0400 Diastolic blood pressure 59 mm[Hg] Amanda Sankovic PA-C Work Phone: [facility] 07-30-2022 09:36-0400 Heart rate 65 /min Amanda Sankovic PA-C Work Phone: [facility] 07-30-2022 09:36-0400 SaO2% (BldA) [Mass fraction] 98 % Amanda Sankovic PA-C Work Phone: [facility] 07-30-2022 09:36-0400 Systolic blood pressure 109 mm[Hg] Amanda Abdirahmankovic PA-C Work Phone: [facility] 10-10-2021 10:30-0400 Body height 167.64 cm Panda Santos Other [facility] Other 10-10-2021 10:30-0400 Body mass index (BMI) [Ratio] 22.27 kg/m2 Panda Santos Other [facility] Other 10-10-2021 10:30-0400 Body temperature 96.4 [degF] Panda Santos Other [facility] Other 10-10-2021 10:30-0400 Body weight 62.6 kg Panda Santos Other [facility] Other 10-10-2021 10:30-0400 Diastolic blood pressure 68 mm[Hg] Panda Santos Other [facility] Other 10-10-2021 10:30-0400 SaO2% (BldA) [Mass fraction] 99 % Panda Santos Other [facility] Other 10-10-2021 10:30-0400 Systolic blood pressure 103 mm[Hg] Panda Santos Other [facility] Other 07-18-2021 16:00-0500 Body height 167.64 cm Panda Hicks Other [facility] Other 07-18-2021 16:00-0500 Body mass index (BMI) [Ratio] 22.92 kg/m2 Panda Fabiola Other [facility] Other 07-18-2021 16:00-0500 Body weight 64.41 kg Panda Fabiola Other [facility] Other 07-18-2021 16:00-0500 Diastolic blood pressure 67 mm[Hg] Panda Fabiola Other [facility] Other 07-18-2021 16:00-0500 Systolic blood pressure 119 mm[Hg] Panda Fabiola Other [facility] Other 06-15-2021 11:00-0500 Body height 167.64 cm Panda Fabiola Other [facility] Other 06-15-2021 11:00-0500 Body mass index (BMI) [Ratio] 22.43 kg/m2 Panda Fabiola Other [facility] Other 06-15-2021 11:00-0500 Body weight 63.05 kg Panda Savagegriselda Other [facility] Other 02-23-2021 16:30-0400 Body height 167.64 cm Kelsey Pop Other [facility] Other 02-23-2021 16:30-0400 Body mass index (BMI) [Ratio] 22.59 kg/m2 Kelsey Pop Other [facility] Other 02-23-2021 16:30-0400 Body weight 63.5 kg Kelsey Pop Other [facility] Other Encounters Encounter Date Encounter Type Care Provider Facility Start: 07-30-2022 End: 07-30-2022 ambulatory AMANDA CHRISTINE Facility:[facility] Start: 07-30-2022 End: 07-30-2022 Patient encounter procedure Amanda Christine DC-C Work Phone: Colorectal Surgery Comment on above: Rectal discharge (Pr imary Dx) Start: 05-09-2022 End: 05-10-[address] PHOENIX GARNER Facility:[facility] Start: 10-18-2021 End: 10-19-[address] PHOENIX GARNER Facility:[facility] Start: 10-10-2021 End: 10-10-2021 ambulatory Panda Santos Other [facility] Other Start: 10-10-2021 Office outpatient visit 40 minutes Panda Santos [facility] Start: 07-18-2021 End: 07-18-2021 ambulatory Panda Hicks Other [facility] Other Start: 07-18-2021 Office outpatient visit 15 minutes Panda Hicks [facility] Start: 06-20-2021 End: 06-20-2021 ambulatory Panda Hicks Other [facility] Other Start: 06-20-2021 Telephone encounter Panda Hicks [facility] Start: 06-15-2021 End: 06-15-2021 ambulatory Pnada Hicks Other [facility] Other Start: 06-15-2021 Office outpatient visit 25 minutes Panda Husseingriselda [facility] Start: 05-31-2021 End: 06-01-[address] PHOENIX GARNER Facility: Start: 05-02-2021 End: 05-02-2021 ambulatory Panda Fabiola Other [facility] Other Start: 05-02-2021 Telephone encounter Panda Husseingriselda [facility] Start: 05-01-2021 End: 05-01-2021 ambulatory Panda Fabiola Other [facility] Start: 05-01-2021 Telephone encounter Panda Hicks [facility] Start: 04-10-2021 End: 04-10-2021 ambulatory Panda Fabiola Other [facility] Start: 04-10-2021 Telephone encounter Panda Husseingriselda [facility] Start: 03-20-2021 Telephone encounter Panda Husseingriselda [facility] Start: 02-23-2021 Office outpatient visit 15 minutes Kelsey Pop [facility] Orthopedics Plan of Treatment Date Care Activity Detail Author Start: 05-20-2022 ADVANCE DIRECTIVE DISCUSSION ADVANCE DIRECTIVE DISCUSSION [facility] Start: 05-20-2022 DEPRESSION ASSESSMENT DEPRESSION ASS ESSMENT [facility] Start: 01-18-2022 Influenza vaccination INFLUENZA (#1) [facility] Start: 2020 BONE DENSITY BONE DENSITY [facility] Start: 2020 PNEUMOCOCCAL: 65+ (1 - PCV) PNEUMOCOCCAL: 65+ (1 - PCV) [facility] Start: 2005 SHINGRIX VACCINE (1 of 2) SHINGRIX V ACCINE (1 of 2) [facility] Start: 2000 COLOGUARD (FIT-DNA) COLOGUARD (FIT-D NA) [facility] Start: 2000 Colonoscopy COLONOSCOPY [facility] Start: 2000 COLORECTAL CANCER SCREENING COLORECTAL CANCER SCREENING [facility] Start: [address]GRAP[address] [facility] Start: 2000 DIABETES SCREEN DIABETES SCREEN [facility] Start: 2000 FECAL OCCULT BLOOD FECAL OCCULT BLOO D [facility] Start: 2000 LIPID SCREEN LIPID SCREEN [facility] Start: 2000 SIGMOIDOSCOPY SIGMOIDOSCOPY Cleraulvaishnavi stone [facility] Start: 1995 Mammography MAMMOGRAM [facility] Start: 1974 Urine microalbumin profile DTAP,TDAP ,TD (1 - Tdap) [facility] Start: 1973 HEPATITIS C SCREENING HEPATITIS C SC REENING [facility] Start: 01-15-1956 COVID-19 VACCINE (#1) COVID-19 VACCI NE (#1) [facility] Immunizations Immunization Date Immunization Notes Care Provider Fa cility 02-23-2021 Kenalog -40 mg Kelsey mckee Other [facility] Other 09-28-2020 Kenalog -40 mg Kelsey mckee Other [facility] Other 09-28-2020 Gel-One Kelsey dior Other [facility] Other Payers Date Payer Category Payer Medicare MEDICARE MEDICAR E A AND B [id number] 2020-Present [phone] [address] [address] [place] [address] Medicare [id number] 2020 Private Health Insurance [employer] A ETNA MEDICARE SUPPLEMENT [id number] 2020-Present [phone] [address] [id number] [place] [address] Indemnity [id number] 1959 Medicare [id number] 1959 Private Health Insurance CLI [id number] 1955 Unknown [id number] 1955 Unknown [id number] 1955 Unknown [id number] Social History Date Type Detail Facility Sex Assigned At [facility] Start: 07-30-2022 Tobacco smoking status NHIS Never smoked tobacco [facility] Start: 07-30-2022 Tobacco use and exposure Smokeless tobacco non-user [facility] Start: 07-30-2022 Alcohol intake Ex-drinker (finding) [facility] Start: 1955 Sex Assigned At Not on file [facility] Clinical Notes 02-23-2021 to 07-30-2022 Patient InstructionsAmanda Christine PA-C - 07/30/2022 10:00 AM EDT Note Date & Type Note Facility 07-30-2022 Instructions Amanda Christine PA-C - 07/30/2022 10:15 AM EDT 1.Fiber POWDER (metamucil, benefiber, citrucelle) - 1/2 tsp of powder mixed in 4-8 ounces of liquid every morning x 1 week; increase 1 tsp of powder mixed in 4-8 ounces of liquid every morning x 1 week; then increase to 1 heaping tablespoon of powder mixed in 4-8 ounces of liquid x 1 week, indefinitely. Adjust dose as needed to achieve formed soft stool. 2. Drink plenty of fluids to maintain regular bowel habits. 3.Try using a squatty potty or foot stool under your feet with bowel movements to promote relaxation of your pelvic floor. 4. Follow up as needed/ if no improvement documented in this encounter [facility] 07-30-2022 History and physi benjamín note COLORECTAL SURGERY New/Consult Alesha Bonilla 67 year old Chief Complaint: mucous drainage History of Present Illness: Alesha Bonilla is a 67 year old female coming to the [facility] office in regards to mucous drainage/leakage.Patient notes clear sticky discharge that is odorous after bowel movement and/or shower. She has a history of issues with diarrhea in the past ( 2 years ago). In which a CT scan,MRI and colonoscopy ( brought to front services agent to be scanned in) were completed and did not show anything concerning. Today she reports: Onset of issues: 2 years ago diarrhea started, sticky discharge is maybe a year Stool frequency: used to be everyday, now not normal bowel movements Stool type: most of the time like soft serve ice cream Stool straining: no Incomplete evacuation: sometimes doesn't feel like she empties them Current bowel regimen:no but started eating a fibrous breakfast Using hemorrhoid cream Use of enemas or suppositories: no Abdominal pressure/pain: no Anorectal pain: sometimes will feel like pressure Feelings of prolapse :no but maybe little hemorrhoids Do you have accidental bowel leakage, fecal incontinence, or urgency with bowel movements? -mucous leakage feels like it is in her gluteal cleft, not every day -no fecal incontinence except sometimes with sneezing Blood or mucous: bleeding sometimes , if she is going several times Hx of /vaginal deliveries: 3 kids, vaginal births Issues with urination: no Fevers or chills: no Overall getting better/worse/staying the same: staying the same Previous anorectal surgery or invasive procedures: no, did not get the hemorrhoidectomy Family hx of Crohns/UC/colitis: no Family of colon or rectal cancer: no Colonoscopy/flex sigmoidoscopy in the past: a little over a year ago, normal per report Dr. Turner General Surgery 02/15/2021: IMPRESSION 1. Rectal bleeding most likely secondary to hemorrhoids rule out colon cancer polyps 2. Abdominal bloating 3. Ventral hernia incarcerated 4. Chronic diarrhea ASSESSMENT & PLAN Colonoscopy and EGD with possible biopsy or polypectomy. I discussed the risks, benefits, alternatives to the above which may include perforation or bleeding or risks of anesthesia. They understood all the above and wished to proceed. Patient also warned about possible anal stricture. She understands she should take a stool softener twice daily and bulk laxative fiber supplement twice daily and Sitz baths 3 times a day and after a bowel movement for the 1st few weeks. She should take the stool softener and bulk fiber for 6 weeks. Hemorrhoidectomy with LigaSure device at time of colonoscopy. Risks benefits alternatives to procedure may include infection, bleeding, temporary incontinence, or pain. No past medical history on file. No past surgical history on file. Current Outpatient Medications Medication Sig Dispense Refill LEVOTHYROXINE SODIUM (LEVOTHYROXINE ORAL) Take by mouth. CALCIUM CARBONATE/VITAMIN D3 (CALCIUM + D ORAL) Take by mouth. CALCIUM CARBONATE/VITAMIN D3 (VITAMIN D-3 ORAL) Take by mouth. (Patient not taking: Reported on 07/30/2022) No current facility-administered medications for this visit. ALLERGIES No Known Allergies No family history on file. Social History Tobacco Use Smoking status: Never Smokeless tobacco: Never Substance Use Topics Alcohol use: Not Currently Drug use: Never Review of Systems / PACC screen: Do you have difficulty climbing a full flight of stairs without feeling short of breath? no Do you require oxygen for your breathing or have your gone to an emergency department because of breathing problems? no Are you on dialysis or have you been told that your kidneys do not work well as they should? no Do have an implanted cardiac device (pacemaker, defibrillator etc.) that has not been checked in the last 6 months? no Have you had an organ transplant? no Have you been told that you had excessive bleeding during surgical procedures or do you take blood thinning medications other than aspirin? no Have you ever had a heart attack, heart stents/surgery, valve problems, or other heart problems? no Have you had a stroke, seizures, or unexplained loss of consciousness? no Do you have a neurologic condition like Parkinson's disease or multiple sclerosis? no Have you or a blood relative had a life-threatening reaction to anesthesia? no Do you have cirrhosis of the liver or other liver disease? no Have you had a blood clot within the past year? no Do you take insulin or other injections for diabetes? no Do you have sleep apnea or have you been told you may have sleep apnea? Not sure Do you have other implanted devices (deep brain stimulator, spinal cord stimulator, etc.)? no Physical Exam: BP 109/59 (BP Site: Left Arm, BP Position: Sitting, BP Cuff Size: Regular Adult) Pulse 65 Temp 36.6 C (97.8 F) (Temporal) Ht 167.6 cm (5' 6 ) Wt 65.8 kg (145 lb) SpO2 98% BMI 23.40 kg/m General Appearance: Well appearing, alert, in no acute distress, well-hydrated, well nourished. Rectal: In the left lateral position, buttocks gently effaced, perianal skin without lesion(s) and skin changes. External hemorrhoids are normal in size and are not acutely thrombosed Fissure/abscess/fistula/lesion: absent, position: N/A. Circumferential perianal skin tags LIGIA: Paradox: Yes ( mild) Squeeze: Normal Resting tone: Normal Masses/lesions: No Rectocele: No Anoscopy: The patient was placed in left lateral position. After digital exam with a lubricated finger, the scope was easily inserted. There were Mildly enlarged enlarged right anterior internal hemorrhoids present. The mucosa was otherwise normal. Patient tolerated procedure well. Plate Maker Zinc present: Yes, Kristin Fuentes MA Diagnostic tests reviewed for today's visit: Colonoscopy Report CT imaging MRI imaging All outside imaging and records were reviewed with the patient during consultation. Assessment Assessment and Plan: Alesha Bonilla is a 67 year old female who comes to [facility] for rectal mucous/ discharge. Upon obtaining the patients history the discharge is mucous like with an odor to it. She has a history of hemorrhoids in the past but did not go through with a hemorrhoidectomy. A complete history of her bowels currently is seen in the HPI. An exam was completed in which her hemorrhoids were not acutely enlarged except minimal enlargement of the right anterior. The patient did have some minimal pelvic floor dysfunction that was noted. With all of this the role of mucous in our digestive tract and the functions of our digestive tract were discussed. We discussed that if we work to optimize her stool consistency with fiber then pelvic coordination it can help with her symptoms. Patient did not want to work up her pelvic floor muscles/ complete pelvic floor physical therapy. With this I suggested a fiber supplement to help bulk her stools and the mucous and a squatty potty to help with elimination. Patient would only like to follow up if needed/ if she has any more questions. She would not like a set follow up at this time. She was instructed to contact my office with any questions or concerns. Amanda Christine PA-C Colorectal Surgery I spent a total of 45 minutes on the date of the service which included preparing to see the patient, [id number] patient care, completing clinical documentation, obtaining and/or reviewing separately obtained history, performing a medically appropriate examination, counseling and educating the patient/family/caregiver, and ordering medications, tests, or procedures. documented in this encounter [facility] 10-10-2021 Evaluation note Encounter Date Diagnosis Assessment Notes September, Psychophysiologic insomnia (ICD-10 - F51.04) She has significant psychophysiologic insomnia with sleep initiation delay and with sleep reinitiation problems that sometimes are quite significant. She has habits of being awake in the bed, finding she cannot really shut her mind off. She has unfortunately developed some suboptimal sleep hygiene habits that contribute to her difficulties. I extensively discussed the principles of good sleep hygiene and encouraged her to make some lifestyle changes to improve these problems. I advised her to start staying up until at least 1030 and likely 11 PM. Most importantly I encouraged her to not be awake in the bed if she finds herself unable to sleep easily. Instead she should get out of the bed and watch something boring (she does not read much) until she is tired enough to get into the bed and easily fall asleep. Extensive education undertaken and handouts provided. She expresses understanding she will return in 4 to 6 weeks but will call sooner if any problems September, Excessive daytime sleepiness (ICD-10 - G47.19) She has multifactorial excessive daytime sleepiness, with known untreated causes for EDS and additional possible contributors.She denies restless legs. She has past history of snoring with obstructive sleep apnea but after a poorly tolerated titration night she did not pursue treatment. Concerningly, her hypothyroidism is not optimally controlled which can further add to fatigue, snoring, and sleep apnea. She reports that she had been trying to get her provider to actually decrease the thyroid because she suspected it was causing GI symptoms, and she reports that he (appropriately) did not agree to decreasing the dose however, her undertreated hypothyroidism likely adds to these EDS symptoms September, Acquired hypothyroidism (ICD-10 - E03.9) She has been chronically treated for hypothyroidism, but her most recent available TSH in May showed significant continued hypothyroidism with a TSH of 9 (laboratory normal 4.7). I explained what this result means and discussed its implications for fatigue, snoring, and sleep apnea. She is seeing her primary provider in a few days and is having laboratory tests rechecked with him, but I anticipate she would need increase in thyroid dose... Undertreated hypothyroidism will worsen fatigue but also worsened snoring and sleep apnea. Repeat sleep testing is not advised until euthyroidism is established and documented September, Obstructive sleep apnea (adult) (pediatric) (ICD-10 - G47.33) She has previous history of known obstructive sleep apnea but has declined treatment since that time. Untreated sleep apnea may significantly contribute to excessive daytime sleepiness, but also increases sleep fragmentation and insomnia. Should obstructive sleep apnea persist after establishing euthyroid state, a form of treatment the patient is willing and able to tolerate would be strongly advised. We discussed improvements in positive airway pressure treatment, and the existence of inspire therapy as an alternative for patients unable to tolerate CPAP who meet other criteria September, Irritable bowel syndrome with both constipation and diarrhea (ICD-10 - K58.2) She has past history of irritable bowel symptoms and has followed with subspecialty care. She is advised that this diagnosis is unlikely to be related to her sleep disturbance or sleep disordered breathing. September, Lactose intolerance (ICD-10 - E73.9) We did not discuss this, but she is quite distressed by the diarrhea. It would be worth exploring whether she is adequately avoiding lactose and all its forms September, Other 1 hour and 10 minutes spent [id number] with the patient, the majority in counseling and education [facility] 03-01-2022 Evaluation note* Encounter Date Diagnosis Assessment Notes Treatment Notes Treatment Clinical Notes Jul, Irritable bowel syndrome with diarrhea (ICD-10 - K58.0) Jul, GERD (gastroesophageal reflux disease) (ICD-10 - K21.9) Jul, Liver hemangioma (ICD-10 - D18.03) Jul, Other REASSURANCE REPEAT RUQ U/S IN 4-6 MONTHS (IN RECALL) [facility] Other 02-01-2022 Evaluation note* Encounter Date Diagnosis Assessment Notes Treatment Notes Treatment Clinical Notes Jun, Liver lesion (ICD-10 - K76.9) [facility] 01-27-2022 Evaluation note* Encounter Date Diagnosis Assessment Notes Treatment Notes Treatment Clinical Notes May, Abdominal pain (ICD-10 - R10.9) CT ABD PELVIS W/ CONTRAST PT ENCOURAGED TO START SUCRALFATE PREVOIUSLY PRESCRIBED BUT SHE DID NOT START F/U HERE AFTER CT SCAN May, Irritable bowel syndrome with diarrhea (ICD-10 - K58.0) May, GERD without esophagitis (ICD-10 - K21.9) May, Ventral hernia without obstruction or gangrene (ICD-10 - K43.9) [facility] Other 11-22-2021 Evaluation note* Encounter Date Diagnosis Assessment Notes Treatment Notes Treatment Clinical Notes Mar, Diarrhea (ICD-10 - R19.7) Mar, Weight loss (ICD-10 - R63.4) [facility] Other 11-01-2021 Evaluation note* Encounter Date Diagnosis Assessment Notes Treatment Notes Treatment Clinical Notes Mar, Abdominal cramping (ICD-10 - R10.9) Mar, Diarrhea (ICD-10 - R19.7) [facility] 10-07-2021 Evaluation note* Encounter Date Diagnosis Assessment Notes Treatment Notes Treatment Clinical Notes Feb, Trochanteric bursitis, left hip (ICD-10 - M70.62) Extensive discussion about current condition and treatment options available. This appears to be pain secondary to greater trochanteric bursitis. Discussed treatment options as oral or topical NSAIDs, physical therapy with iontophoresis, or cortisone injection to the greater trochanteric bursa. Patient was prepped and cortisone was injected into the greater trochanteric bursa under sterile conditions. Patient tolerated injection well with no adverse reactions. Feb, Left hip pain (ICD-10 - M25.552) [facility] [employer] Other Evaluation note* Diagnosis Rectal discharge- Primary Other symptoms involving digestive system documented in this encounter [facility] general Narrative - Reported* Type Description Date Medical History high cholesterol Medical History Hypothyroidism Surgical History meniscus repair Surgical History rotator cuff repair Surgical History lipoma removed from right shoul neela Surgical History skin cancer removal from lip Hospitalization History see above [facility] [employer] Other History general Narrative - Reported* Type Description Date Medical History high cholesterol Medical History Hypothyroidism Medical History obstructive sleep apnea Surgical History meniscus repair Surgical History rotator cuff repair Surgical History lipoma removed from right shoul neela Surgical History skin cancer removal from lip Hospitalization History see above [facility] [employer] Other Summary Purpose Family History No Family History Records FoundNo Family History Records FoundNo Family History Records Found Advance Directives No Advanced Directives Records FoundNo Advanced Directives Records FoundNo Advanced Directives Records Found Additional Source Comments INFORMATION SOURCE (unrecogn ized section and content) DATE CREATED AUTHOR 10/13/2021 [facility] DATE CREATED AUTHOR AUTHOR'S ORGANIZ ATION 05/17/2022 [facility] DATE CREATED AUTHOR AUTHOR'S ORGANIZ ATION 07/31/2022 [facility] REASON FOR VISIT (unrecogniz ed section and content) Reason Comments New Patient Clear discharge from rectum Source Comments (unrecognize d section and content) In the event this informatio n is protected by the Federal Confidentiality of Alcohol and Drug Abuse Patient Records regulations: The Federal rules restrict any use of the information to criminally investigate or prosecute any alcohol or drug abuse patient.[facility] Care Teams (unrecognized sec tion and content) Landscaping Specialist Relationship Specialty Start Date End Date Phoenix Garner [address] [place] [address] PCP - General Family Medicine 07/26/22 FOR RECORDS PERTAINING TO PATIENTS WHO ARE OR HAVE BEEN ENROLLED IN A CHEMICAL DEPENDENCY/SUBSTANCEABUSE PROGRAM, SOME INFORMATION MAY BE OMITTED. This clinical summary was aggregated from multiple sources. Caution should be exercised in using it in the provision of clinical care. This summary normalizes information from multiple sources, and as a consequence, information in this document may materially change the coding, format and clinical context of patient data. In addition, data may be omitted in some cases. CLINICAL DECISIONS SHOULD BE BASED ON THE PRIMARY CLINICAL RECORDS. [facility]. provides no warranty or guarantee of the accuracy or completeness of information in this document.
[2023-06-27 11:21] LABS: Basophils Percent Auto 0.8 % (0.2-2.0); Eosinophils Absolute Auto 0.1 10^3/uL (0.0-0.7); Eosinophils Percent Auto 1.2 % (0.9-7.0); Hematocrit 39.2 % (36.0-48.0); Hemoglobin 12.9 g/dL (12.0-16.0); Immature Granulocytes Abs Auto 0.01 10^3/uL (0.00-0.03); Immature Granulocytes Pct Auto 0.2 % (0.0-0.5); Lymphocytes Absolute Auto 0.7 10^3/uL (1.2-3.8); Lymphocytes Percent Auto 14.3 % (20.5-60.0); Mean Corpuscular HGB Conc 32.9 g/dL (29.9-35.2); Mean Corpuscular Hemoglobin 29.9 pg (26.7-34.0); Mean Corpuscular Volume 90.7 fL (81.0-99.0); Mean Platelet Volume 10.2 fL (9.5-13.5); Monocytes Absolute Auto 0.5 10^3/uL (0.3-0.8); Monocytes Percent Auto 9.4 % (1.7-12.0); Neutrophils Absolute Auto 3.9 10^3/uL (1.4-6.5); Neutrophils Percent Auto 74.1 % (43.0-75.0); Platelet Count 181 10^3/uL (150-450); Red Blood Count 4.32 10^6/uL (4.20-5.40); Red Cell Distribution Width 12.5 % (11.0-15.0); White Blood Count 5.2 10^3/uL (4.0-11.0)
[2023-06-27 11:35] LABS: Erythrocyte Sedimentation Rate 12 mm/hr (<=30)
[2023-06-27 11:58] LABS: Alanine Aminotransferase 30 U/L (14-59); Albumin Globulin Ratio 0.9; Albumin Level 3.6 g/dL (3.4-5.0); Alkaline Phosphatase 76 U/L (46-116); Anion Gap 10.8; Aspartate Amino Transferase 25 U/L (15-37); BUN Creatinine Ratio 16.7; Bilirubin Total 0.7 mg/dL (0.2-1.0); Chloride 104 mmol/L (98-107); Estimated GFR (African America >60 (>=60); Estimated GFR (Non-African Ame >60 (>=60); Free T3 2.45 pg/mL (2.18-3.98); Glucose 94 mg/dL (74-106); Potassium 3.8 mmol/L (3.5-5.1); Sodium 140 mmol/L (136-145); Thyroid Stimulating Hormone 0.517 uIU/mL (0.358-3.740); Total Protein 7.6 g/dL (6.4-8.2)
[2023-06-27 12:01] LABS: Free T4 1.25 ng/dL (0.76-1.46)
== END 2023-06-27 10:49 | disposition home or self-care (01) ==
LOC: LAB 10:51
PROVIDERS: PCP Family Medicine; Visit Provider Nurse Practitioner
DX: E03.9 Hypothyroidism, unspecified (principal); K62.5 Hemorrhage of anus and rectum; E55.9 Vitamin D deficiency, unspecified; D64.9 Anemia, unspecified
CPT/HCPCS: 36415; 80053; 82306; 82728; 83540; 84439; 84443; 84481; 85025; 85652

== ENCOUNTER 2023-07-22 13:36 | Outpatient (OUT) | payer MEDICARE, SELFPAY ==
--- OUTSIDE RECORDS SUMMARY | 2023-07-22 13:52 | XMS_ITS | CCD ---
Author Name Unknown Address [address] [facility] [facility] [facility] [address] [place] [address] Organization [facility] Care Team Providers Care Soda Fountain Manager Name Role Phone Kelsey Pop Unavailable Panda Hicks Unavailable Panda Santos Unavailable PASCUAL, DR PHOENIX Montaño Primary Care Unavailable TWAN, DR BHAVIN Licona Consulting Unavailable KEVINERELivan, DR PHOENIX Montaño Attending Unavailable NADERER, DR PHOENIX Montaño Admitting Unavailable NADERER, DR PHOENIX Montaño Consulting Unavailable NADERER, DR PHOENIX Montaño Admitting Unavailable NADERER, DR PHOENIX Montaño Primary Care Unavailable KEVINERELivan, DR PHOENIX Montaño Consulting Unavailable PASCUAL, DR PHOENIX Montaño Attending Unavailable NADERER, DR PHOENIX Montaño Admitting Unavailable NADERER, DR PHOENIX Montaño Primary Care Unavailable NADERER, DR PHOENIX Montaño Consulting Unavailable NADERELivan, DR PHOENIX Montaño Attending Unavailable Pascual, Phoenix Montaño Primary Care Provider AMANDA CHRISTINE Attending Unavailable PHOENIX GARNER Primary Care Unavailable FAY PASCAL Attending Unavailable Phoenix Garner MD Primary Care Provider FAY PASCAL Primary Care Physician [phone] Fay Pascal Attending Unavailable Fay Pascal Admitting Unavailable Phoenix Garner Primary Care Unavailable Jose M SANTO Attending Unavailable FAY PASCAL Referring Unavailable Allergies Allergy Classification Reported Allergen(s) Allergy Type Date of Onset Reaction(s) Facility (1 source) No Known Medication Allergies; Translations: [No Known Medication Allergies] Propensity to adverse reactions (disorder) [facility] Repository Medications Current Medications Medication Drug Class(es) Dates Sig (Normalized) Sig (Original) alendronic acid 70 mg oral tablet (4 sources) Bisphosphonate take 1 tablet by mouth in the morning alendronate (Fosamax) 70 MG tablet Take 70 mg by mouth every 7 (seven) days Take in the morning with a full glass of water, on an empty stomach, and do not take anything else by mouth or lie down for the next 30 min. 0 Active ascorbic acid 1000 mg oral tablet (4 sources) Vitamin C take 1 tablet by mouth in the morning Ascorbic Acid (vitamin C) 1000 MG tablet Take 1,000 mg by mouth in the morning. 0 Active atorvastatin 20 mg oral tablet (4 sources) HMG-CoA Reductase Inhibitor take 1 tablet by mouth in the morning atorvastatin (Lipitor) 20 MG tablet Take 20 mg by mouth in the morning. 0 Active Calcium Carb-Cholecalciferol (CALCIUM 500 + D PO) (4 sources) take 2 tablets by mouth once daily in the morning Calcium Carb-Cholecalcifero l (CALCIUM 500 + D PO) Take 2 tablets by mouth in the morning and at noon 0 Active calcium lactate (1 source) Calcium Lactate Active ergocalciferol 1.25 mg oral capsule (4 sources) Provitamin D2 Compound take 1 capsule by mouth every week ergocalciferol (Vitamin D-2) 1.25 MG (50519 UT) capsule Take 1.25 mg by mouth 1 (one) time per week 0 Active levothyroxine sodium 0.1 mg oral tablet (17 sources) l-Thyroxine Start: 07-05-2023 take 1 tablet by mouth once daily Synthroid 100 mcg Tab 100 mcg = 1 tab(s), Oral, Daily, Refills(s) 0 Start Date: 07/05/23 Status: Ordered take 1 tablet by genny th before mealtime levothyroxine (Synthroid, Levoxyl) 100 MCG tablet Indications: Hypothyroidism Take 100 mcg by mouth in the morning. Take before meals. 0 Active End: 06-27-2023 take 1 tablet by mouth before mealtime levothyroxine (Synthroid, Levoxyl) 75 MCG tablet Take 75 mcg by mouth in the morning. Take before meals. 0 06/27/2023 Discontinued (Therapy completed) LEVOTHYROXINE SO DIUM (LEVOTHYROXINE ORAL) Take by mouth. 0 Active take 1 tablet by genny th once daily Levothyroxine Sodium 75 MCG TAKE 1 TABLET BY MOUTH DAILY Oral for 60 Active Comment on above: Take by mouth. omeprazole 40 mg delayed release oral capsule (4 sources) Proton Pump Inhibitor take 1 capsule by mouth before mealtime omeprazole (PriLOSEC) [address] capsule Take 40 mg by mouth in the morning. Take before meals. Do not crush or chew.. 0 Active Vitamin D (1 source) Vitamin D Active Completed/Discontinued Medications Medication Drug Class(es) Dates Sig (Normalized) Sig (Original) Calcium Carbonate / vitamin D3 (2 sources) CALCIUM CARBONATE/VITAMIN D3 (CALCIUM + D ORAL) Take by mouth. 0 Active CALCIUM CARBONAT E/VITAMIN D3 (VITAMIN D-3 ORAL) Take by mouth. 0 Active Comment on above: Take by mouth. hyaluronate (2 sources) Start: 09-28-2020 Gel-One September, 3 mL predniSONE 20 mg oral tablet (4 sources) [...] 09-28-2020 Kenalog -40 mg September, 40 mg Vitamin D 50,000 intl units (1.25 mg) oral capsule (1 source) Start: 07-05-2023 take 1 capsule by mouth every week Vitamin D 50,000 intl units (1.25 mg) oral capsule 50,000 International_Unit = 1 cap(s), Oral, qWeek, Refills(s) 0 Start Date: 07/05/23 Status: Ordered Problems Active Problems Problem Classification Problem Date Documented Da te Episodic/Chronic Abdominal pain (6 sources) Unspecified abdominal pain; Translations: [Abdominal pain] Onset: 03-20-2021 Resolved: 06-15-2021 Episodic Disorders of lipid metabolism (6 sources) Hyperlipidemia, unspecified; Translations: [Dyslipidemia] Onset: 10-25-2021 06-27-2023 Chronic Diverticulosis and diverticulitis (1 source) Diverticular disease 07-05-2023 Chronic Gastrointestinal hemorrhage (7 sources) Rectal hemorrhage; Translations: [Hemorrhage of anus and rectum] Onset: 06-27-2023 06-27-2023 Episodic Heart valve disorders (6 sources) Heart murmur; Translations: [Cardiac murmur, unspecified] Onset: 06-27-2023 06-27-2023 Episodic Hemorrhoids (1 source) Hemorrhoids 07-05-2023 Episodic Nutritional deficiencies (12 sources) Vitamin D deficiency, unspecified; Translations: [Vitamin D deficiency] Onset: 06-02-2021 Chronic Osteoarthritis (17 sources) Osteoarthritis of right knee joint; Translations: [Unilateral primary osteoarthritis, right knee] Onset: 06-27-2023 06-27-2023 Chronic Osteoporosis (5 sources) Postmenopausal osteoporosis; Translations: [Age-related osteoporosis without current pathological fracture] Onset: 06-27-2023 06-27-2023 Chronic Other and unspecified benign neoplasm (1 source) History of polyp of colon 07-05-2023 Episodic Other gastrointestinal disorders (9 sources) Irritable bowel syndrome; Translations: [Mixed irritable bowel syndrome] Chronic Other gastrointestinal disorders (5 sources) Irritable bowel syndrome with diarrhea; Translations: [Irritable bowel syndrome with diarrhea] 07-05-2023 Chronic Other gastrointestinal disorders (2 sources) Irritable bowel syndrome with diarrhea Onset: 06-15-2021 Resolved: 07-18-2021 Chronic Other gastrointestinal disorders (1 source) Mixed irritable bowel syndrome Onset: 10-10-2021 Resolved: 10-10-2021 Chronic Other gastrointestinal disorders (1 source) Rectal discharge; Translations: [Other specified symptoms and signs involving the digestive system and abdomen] Episodic Other inflammatory condition of skin (4 sources) Lichen simplex chronicus; Translations: [Lichen simplex chronicus] Onset: 06-27-2023 06-27-2023 Episodic Other liver diseases (4 sources) Lesion of liver; Translations: [Liver disease, unspecified] 07-05-2023 Chronic Other liver diseases (1 source) Liver disease, unspecified Onset: 06-20-2021 Resolved: 06-20-2021 Chronic Other non-epithelial cancer of skin (9 sources) Squamous cell carcinoma of skin; Translations: [Squamous cell carcinoma of skin, unspecified] Onset: 06-27-2023 06-27-2023 Episodic Other non-traumatic joint disorders (4 sources) Pain in right hip joint; Translations: [Pain in right hip] Onset: 06-27-2023 06-27-2023 Episodic Other nutritional; endocrine; and metabolic disorders (10 sources) Intolerance to lactose; Translations: [Lactose intolerance, unspecified] 07-05-2023 Chronic Other nutritional; endocrine; and metabolic disorders (1 source) Lactose intolerance, unspecified Onset: 10-10-2021 Resolved: 10-10-2021 Chronic Other screening for suspected conditions (not mental disorders or infectious disease) (4 sources) Encounter for screening mammogram for malignant neoplasm of breast; Translations: [ENC SCR MAMMO MALIG NEOPLASM BREAST] Onset: 05-09-2022 Episodic Residual codes; unclassified (1 source) Sleep apnea; Translations: [Sleep apnea, unspecified] Chronic Residual codes; unclassified (1 source) Daytime somnolence; Translations: [Other hypersomnia] Chronic Residual codes; unclassified (2 sources) Obstructive sleep apnea syndrome; Translations: [Obstructive sleep apnea (adult) (pediatric)] 07-05-2023 Chronic Residual codes; unclassified (1 source) Other hypersomnia Onset: 10-10-2021 Resolved: 10-10-2021 Chronic Residual codes; unclassified (1 source) Obstructive sleep apnea (adult) (pediatric) Onset: 10-10-2021 Resolved: 10-10-2021 Chronic Residual codes; unclassified (1 source) Family history of malignant neoplasm of digestive organs; Translations: [FAM HX MALIG NEOPLASM DIGESTIV ORGN] Onset: 05-17-2022 Episodic Residual codes; unclassified (1 source) Family history of malignant neoplasm of trachea, bronchus and lung; Translations: [FAM HX MALIG NEOPLSM TRACH BRON LNG] Onset: 05-17-2022 Episodic Residual codes; unclassified (1 source) Family history of malignant neoplasm of other organs or systems; Translations: [FAM HX MALIG NEOPLASM OTH ORGN/SYS] Onset: 05-17-2022 Episodic Residual codes; unclassified (5 sources) Body mass index 20-24 - normal; Translations: [Body mass index (BMI) 21.0-21.9, adult] Onset: 06-27-2023 06-27-2023 Episodic Thyroid disorders (14 sources) Acquired hypothyroidism; Translations: [Hypothyroidism, unspecified] Onset: 05-31-2021 Resolved: 10-10-2021 Chronic Unclassified (1 source) Body mass index 20-24 - normal 07-10-2023 Past or Other Problems Problem Classification Problem Date Documented Da te Episodic/Chronic Abdominal hernia (1 source) Ventral hernia without obstruction or gangrene Onset: 2 Resolved: 2 Episodic Diabetes mellitus without complication (6 sources) Prediabetes; Translations: [Prediabetes] Onset: 2 06-27-2023 Episodic Esophageal disorders (16 sources) Gastroesophageal reflux disease; Translations: [Gastro-esophageal reflux disease without esophagitis] Onset: 2 Resolved: 4 Chronic Miscellaneous mental health disorders (3 sources) Psychophysiologic insomnia; Translations: [Psychophysiologic insomnia] Onset: 2 Resolved: 4 Chronic Other aftercare (1 source) Other halfway (current) drug therapy; Translations: [OTH TRIAGE REGISTERED NURSE CURRENT DRUG THERAPY] Onset: 2 Episodic Other and unspecified benign neoplasm (1 source) Hemangioma of intra-abdominal structures Onset: 2 Resolved: 2 Episodic Other connective tissue disease (1 source) Trochanteric bursitis, left hip; Translations: [Trochanteric bursitis, left hip M70.62] Onset: 1 Resolved: 1 Episodic Other gastrointestinal disorders (2 sources) Diarrhea, unspecified; Translations: [Diarrhea R19.7] Onset: 1 Resolved: 1 Episodic Other non-traumatic joint disorders (1 source) Pain in left hip; Translations: [Left hip pain M25.552] Onset: 1 Resolved: 1 Episodic Other nutritional; endocrine; and metabolic disorders (1 source) Abnormal weight loss Onset: 1 Resolved: 1 Episodic Results Test Name Value Interpretation Reference Range Facility Transfer Inon 07-19-2023 Transfer In [id number]#[id number] Normal [facility] Blood Urea Nitrogenon 2023 Urea nitrogen [Mass/Vol] 16 mg/dL Normal 7-25 [facility] Comment on above: Order Comment: STAT FOR CT Performed By: #### B UN, CREAT #### [address] abdomen pelvis w conon CT abdomen pelvis w [facility] [place] [address] [place] [address] CT Scan Report Signed Patient: Alesha Bonilla MR#: [id number] 57 : 1955 Acct:[id number] Age/Sex: 68 / F ADM Date: 07/18/23 Loc: CT Room: Type: [facility] Attending Dr: Fay Pascal Copies to: CHARLOTTE Ann Ordering Provider: CHARLOTTE Ann Date of Service: 07/18/23 CT/CT abdomen pelvis w con: K78.9, K62.5 CT ABDOMEN AND PELVIS WITH INTRAVENOUS CONTRAST: CLINICAL HISTORY: Follow-up liver lesions in left kidney lesion. Rectal bleeding due to hemorrhoids 3 months COMPARISON: CT abdomen and pelvis 06/19/2021 MRI abdomen 07/05/2021 TECHNIQUE: Spiral images were obtained through the abdomen and pelvis following the administration of intravenous contrast. This CT exam was performed using one or more following dose reduction techniques: Automated exposure control, adjustment of the mA and/or kV according to patient size, or use of iterative reconstruction technique. FINDINGS: Lung Bases: [No acute findings.] Organs:Suboptimal evaluation of the liver lesions due to single phase technique. The previously identified hepatic cysts and hemangiomas are grossly unchanged from the prior studies. No new suspicious lesion is seen. Portal vein gallbladder spleen and adrenal glands appear unremarkable. Cyst left kidney. Right kidney appears unremarkable. Abdominal aorta appears normal in caliber. Pancreatic duct dilatation without obstructing lesion, unchanged from prior studies.[ GI: Stomach is grossly unremarkable. Small bowel appears nondilated. No acute colonic abnormality. Pelvis:[Urinary bladder is grossly unremarkable. Uterus is grossly unremarkable. No adnexal mass.] Peritoneum/Retroperitoneum:N o free air, free fluid or lymphadenopathy.[ Abd wall/Bones:Abdominal wall demonstrates uncomplicated umbilical/ventral hernias. Osseous structures demonstrate degenerative change.[ CT/CT abdomen pelvis w con IMPRESSION: No significant change in the patient's known liver hemangiomas/cysts when compared to prior studies. No new lesion is seen. No enhancing renal mass. Impression dictated by: Jose Miguel Cox Jr., D.O.07/18/2023 11:49 AM Dictation Location: [place] [address] Transcribed By: [facility] 07/18/23 1149 Dictated By: Jose Miguel Cox Jr, DO 07/18/23 1144 Signed By: 07/18/23 1149 Normal [facility] Creatinineon 07-18-2023 Creatinine [Mass/Vol] 0.82 mg/dL Normal 0.60-1.20 [facility] Comment on above: Order Comment: STAT FOR CT Performed By: #### B DEBBIE, CREAT #### [facility] [address] [place] [address] GFR/1.73 sq M.predicted MDRD (S/P/Bld) [Vol rate/Area] mL/min/{1.73_m2} Normal [facility] Comment on above: Order Comment: STAT FOR CT Result Comment: PERF ORMED BY: [place] [address] PATHOLOGIST CONCRETE CRUSHER LOADER OPERATOR DON BOSTON M.D. Performed By: #### B DEBBIE, CREAT #### [facility] [address] [place] [address] Facesheeton 07-11-2023 Facesheet [id number]#[id number] Normal [facility] Ambulatory Visit Summaryon 0 07-10-2023 Ambulatory Visit Summary ALESHA BONILLA :1955 Visit Date:07/10/2023 Ambulatory Visit Instructions Your Care Team Attending Physician - MERCY MARTINEZ, Jose M Licona Primary Care Physician - FYA PASCAL CNP Referring Physician - FAY PASCAL CNP This Is Your Medications List Contact prescribing physician if questions or concerns ergocalciferol (Vitamin D 50,000 intl units (1.25 mg) oral capsule) levothyroxine (Synthroid 100 mcg Tab) Procedures Performed Colonoscopy (04/03/2021), EGD - esophagogastroduodenoscopy (04/03/2021), Colonoscopy (2014), Arthroscopy of knee, Arthroscopy of shoulder, Colonoscopy, Cystectomy, Laparoscopy, Tubal ligation. Discharge Vitals Heart Rate (Peripheral) 74 Respiratory Rate 16 Blood Pressure 114/70 Height 167.6 cm Height 66 in Weight 62.4 kg Weight 137.28 lb BMI 22.21 Medications What How Much When Instructions Unchanged ergocalciferol (Vitamin D 50,000 intl units (1.25 mg) oral capsule) 1 Capsules By Mouth Every week Contact prescribing physician if questions or concerns Unchanged levothyroxine (Synthroid 100 mcg Tab) 1 Tablets By Mouth Every day Contact prescribing physician if questions or concerns Medications and Immunizations Administered Not Given influenza virus vaccine, inactivated, Patient Refuses Allergies No Known Allergies No Known Medication Allergies Problems Ongoing - Any problem that you are currently receiving treatment for. BMI 22.0-22.9, adult Diverticulosis Dyslipidemia Heart murmur Hemorrhoid History of colon polyps Hypothyroidism Intolerance to lactose Irritable bowel syndrome with diarrhea Lesion of liver Obstructive sleep apnea syndrome Osteoporosis Prediabetes Rectal bleeding Squamous cell carcinoma of skin Vitamin D deficiency Historical - Any problem that you are no longer receiving treatment for. Gastroesophageal reflux disease Psychophysiologic insomnia Patient Survey You may receive a survey via text or e-mail asking about your office visit. Please share your experience with us by completing your survey. We appreciate your feedback and thank you for choosing us for your care. [facility] Physician Referralon 024 Physician Referral [id number]#[id number] [facility] ALL CBC WITH AUTO DIFFon BASOPHILS ABSOLUTE AUTO 0.0 [facility] Basophils/100 WBC (Bld) 0.8 % 0.2 - 2.0 % [facility] Eosinophils/100 WBC (Bld) 1.2 % 0.9 - 7.0 % [facility] Erythrocyte distribution width (RBC) [Ratio] 12.5 % 11.0 - 15.0 % [facility] Hematocrit (Bld) [Volume fraction] 39.2 % 36.0 - 48.0 % [facility] Hemoglobin (Bld) [Mass/Vol] 12.9 g/dL 12.0 - 16.0 g/dL [facility] IMMATURE GRANULOCYTES ABS AUTO 0.01 [facility] Immature granulocytes/100 WBC (Bld) 0.2 % 0.0 - 0.5 % [facility] Interpretation and review of laboratory results Abnormal [facility] LYMPHOCYTES ABSOLUTE AUTO 0.[address] [facility] Lymphocytes/100 WBC (Bld) 14.3 % Low 20.5 - 60.0 % [facility] MCH (RBC) [Entitic mass] 29.9 pg 26.7 - 34.[address] [facility] MCHC (RBC) [Mass/Vol] 32.9 g/dL 29.9 - 35.2 g/dL [facility] MCV (RBC) [Entitic vol] 90.7 fL 81.0 - 99.[address] [facility] MONOCYTES ABSOLUTE AUTO 0.5 [facility] Monocytes/100 WBC (Bld) 9.4 % 1.7 - 12.0 % [facility] NEUTROPHILS ABSOLUTE AUTO 3.9 [facility] Neutrophils/100 WBC (Bld) 74.1 % 43.0 - 75.0 % [facility] Platelet mean volume (Bld) [Entitic vol] 10.2 fL 9.5 - 13.5 fL [facility] EO # 0.1 [facility] TB PLT 181 [facility] RBC 4.32 [facility] WBC 5.2 [facility] CNOVon 07-30-2022 CNOV Office Visit (CORSMN ) ALESHA BONILLA ([id number]) 1955 F Date Time Provider Department 07/30/22 [...] CT scan,MRI and colonoscopy ( brought to restaurant front manager to be scanned in) were completed and [...] liver disea (more content not included)... Normal [facility] HISTORY PHYSICALon HISTORY PHYSICAL HNO ID: [id number] Author: Amanda Christine PA-C Service: ? Author Type: Physician Diesel Locomotive Firer/Fireman Type: HANDP Filed: 07/30/2022 11:25 AM Note [...] CT scan,MRI and colonoscopy ( brought to restaurant front manager to be scanned in) were completed and [...] cord stimula (more content not included)... Normal [facility] MG MAMM SCREEN 3D NEETA CADon 05-09-2022 MG MAMM SCREEN 3D NEETA CAD Patient: ALESHA BONILLA Exam Date: 05/09/2022 : 1955 Gender:F Ordering : DR PHOENIX GARNER . Admission #: [id number] Family : Order #: [id number] CLICK HERE TO VIEW EXAM RADIOLOGY REPORT [...] lung cancer at age 74. LOCATION: [facility] BREAST COMPOSITION: Scattered areas fibroglandular density. FINDINGS: [...] M.D. on 05/09/2022 at 10:59 Normal [facility] CBC AUTO DIFFon 10-18-2021 BASO # 0.0 103/ul Normal 0.0-0.1 [facility] Comment on above: Performed By: #### C BC #### [facility] [address] [place] [address] Dr. William García Basophils/100 WBC (Bld) 0.8 % Normal 0.2-2.0 [facility] Comment on above: Performed By: #### C BC #### [facility] [address] [place] [address] Dr. William García EO # 0.1 103/ul Normal 0.0-0.7 [facility] Comment on above: Performed By: #### C BC #### [facility] [address] [place] [address] Dr. William García Eosinophils/100 WBC (Bld) 2.0 % Normal 0.9-7.0 [facility] Comment on above: Performed By: #### C BC #### [facility] [address] [place] [address] Dr. William García Erythrocyte distribution width (RBC) [Ratio] 12.7 % Normal 11.0-15.0 [facility] Comment on above: Performed By: #### C BC #### [facility] [address] [place] [address] Dr. William García Hematocrit (Bld) [Volume fraction] 39.2 % Normal 36.0-48.0 [facility] Comment on above: Performed By: #### C BC #### [facility] [address] [place] [address] Dr. William García Hemoglobin (Bld) [Mass/Vol] 12.8 g/dL Normal 12.0-16.0 [facility] Comment on above: Performed By: #### C BC #### [facility] [address] [place] [address] Dr. William García IG # 0.01 10e3/ul Normal 0.00-0.03 [facility] Comment on above: Performed By: #### C BC #### [facility] [address] [place] [address] Dr. William García IG % 0.2 % Normal 0.0-0.5 [facility] Comment on above: Performed By: #### C BC #### [facility] [address] [place] [address] [address] William García LYMPH # 0.9 103/ul Critically low 1.2-3.[address] [facility] Comment on above: Performed By: #### C BC #### [facility] [address] [place] [address] [address] William García Lymphocytes/100 WBC (Bld) 17.4 % Critically low 20.5-60.0 [facility] Comment on above: Performed By: #### C BC #### [facility] [address] [place] [address] Dr. William García MANUAL DIFF REQ NO Normal [facility] Comment on above: Performed By: #### C BC #### [facility] [address] [place] [address] Dr. William García MCH (RBC) [Entitic mass] 30.0 pg Normal 26.7-34.0 [facility] Comment on above: Performed By: #### C BC #### [facility] [address] [place] [address] Dr. William García MCHC (RBC) [Mass/Vol] 32.7 g/dL Normal 29.9-35.2 [facility] Comment on above: Performed By: #### C BC #### [facility] [address] [place] [address] Dr. William García MCV (RBC) [Entitic vol] 91.8 fL Normal 81.0-99.0 [facility] Comment on above: Performed By: #### C BC #### [facility] [address] [place] [address] Dr. William García MONO # 0.5 103/ul Normal 0.3-0.8 [facility] Comment on above: Performed By: #### C BC #### [facility] [address] [place] [address] Dr. William García Monocytes/100 WBC (Bld) 10.7 % Normal 1.7-12.0 [facility] Comment on above: Performed By: #### C BC #### [facility] [address] [place] [address] [address] William García NEUT # 3.5 103/ul Normal 1.4-6.5 [facility] Comment on above: Performed By: #### C BC #### [facility] [address] [place] [address] [address] William García Neutrophils/100 WBC (Bld) 68.9 % Normal 43.0-75.0 [facility] Comment on above: Performed By: #### C BC #### [facility] [address] [place] [address] [address] William García Platelet mean volume (Bld) [Entitic vol] 10.3 fL Normal 9.5-13.5 [facility] [facility] Comment on above: Performed By: #### C BC #### [facility] [address] [address] [address] William García PLT 189 103/ul Normal 150-450 [facility] Comment on above: Performed By: #### C BC #### [facility] [address] [address] [address] William García RBC 4.27 106/ul Normal 4.20-5.40 [facility] Comment on above: Performed By: #### C BC #### [facility] [address] [address] [address] William García WBC 5.1 103/ul Normal 4.0-11.0 [facility] Comment on above: Performed By: #### C BC #### [facility] [address] [address] [address] William García FREE T3on 10-18-2021 FREE T3 2.63 pg/mlL Normal 2.18-3.98 [facility] Comment on above: Performed By: #### F T3, TSH, AST, LIPID, ALT, BMP ####[facility] [address] [address]Dr. William García FREE T4on 10-18-2021 Free T4 [Mass/Vol] 1.42 ng/dL Normal 0.76-1.46 [facility] Comment on above: Performed By: #### F T4, VITAD #### [facility] [address] [address] [address] William García GLYCOHEMOGLOBIN A1Con 2021 ADA RECOMMENDATION SEE BELOW Normal [facility] Comment on above: Result Comment: ADA RECOMMENDED LIMIT 4.0 - 6.0 ADA THERAPEUTIC TARGET < 7.0 ACTION SUGGESTED > 7.0 Performed By: #### A 1C #### [facility] [address] [address] [address] William García Glucose [Mass/Vol] 105 mg/dL Normal [facility] Comment on above: Performed By: #### A 1C #### [facility] [address] [address] [address] William García HbA1c (Bld) [Mass fraction] 5.3 % Normal 4.5-6.2 [facility] Comment on above: Performed By: #### A 1C #### [facility] [address] [address] [address] William García LIPID PROFILEon 10-18-2021 CHOL-HDL RATIO NORM SEE BELOW Normal [facility] Comment on above: Result Comment: 3.3 - 4.4 LOW RISK 4.4 - 7.1 AVERAGE RISK 7.1 - 11.0 MODERATE RISK >11.0 HIGH RISK Performed By: #### F T3, TSH, AST, LIPID, ALT, BMP ####[facility] [address] [address]DrBlanca García Cholesterol [Mass/Vol] 222 mg/dL Critically high <=200 [facility] Comment on above: Performed By: #### F T3, TSH, AST, LIPID, ALT, BMP ####[facility] [address] [id number] García Cholesterol in HDL [Mass/Vol] 76 mg/dL Critically high 40-60 [facility] Comment on above: Performed By: #### F T3, TSH, AST, LIPID, ALT, BMP ####[facility] [address] [id number]. William García Cholesterol in LDL [Mass/Vol] 136.4 mg/dL Normal [facility] Comment on above: Performed By: #### F T3, TSH, AST, LIPID, ALT, BMP ####[facility] [address] [address]Dr. William García Cholesterol.total/ Cholesterol in HDL [Mass ratio] 2.9 {ratio} Normal [facility] Comment on above: Performed By: #### F T3, TSH, AST, LIPID, ALT, BMP ####[facility] [address] [address]Dr. William García HDL NORMAL > or = 60 mg/dl - LO W CARDIOVASCULAR RISK <40 mg/dl - HIGH CARDIOVASCULAR RISK Normal [facility] Comment on above: Performed By: #### F T3, TSH, AST, LIPID, ALT, BMP ####[facility] [address] [address]Dr. William García LDL CALC NORMAL SEE BELOW Normal [facility] [place] [facility] Comment on above: Result Comment: <100 mg/dl OPTIMAL 100 - 129 mg/dl NEAR OR ABOVE OPTIMAL 130 - 159 mg/dl BORDERLINE HIGH 160 - 189 mg/dl HIGH >190 mg/dl VERY HIGH Performed By: #### F T3, TSH, AST, LIPID, ALT, BMP ####[facility] [address] [address]Dr. William García Triglyceride [Mass/Vol] 48 mg/dL Normal <=150 [facility] Comment on above: Performed By: #### F T3, TSH, AST, LIPID, ALT, BMP ####[facility] [address] [address]Dr. William García VLDL CALC 9.6 mg/dL Normal [facility] Comment on above: Performed By: #### F T3, TSH, AST, LIPID, ALT, BMP ####[facility] [address] [address]Dr. William García PROF CHEM 8 (BAS METB)on Anion gap [Moles/Vol] 11.6 mmol/L Normal [facility] Comment on above: Performed By: #### F T3, TSH, AST, LIPID, ALT, BMP ####[facility] [address] [address]Dr. William García Calcium [Mass/Vol] 9.0 mg/dL Normal 8.5-10.1 [facility] Comment on above: Performed By: #### F T3, TSH, AST, LIPID, ALT, BMP ####[facility] [address] [address]Dr. William García Chloride [Moles/Vol] 106 mmol/L Normal 98-107 [facility] Comment on above: Performed By: #### F T3, TSH, AST, LIPID, ALT, BMP ####[facility] [address] [address]Dr. William García CO2 [Moles/Vol] 28.4 mmol/L Normal 21.0-32.0 [facility] Comment on above: Performed By: #### F T3, TSH, AST, LIPID, ALT, BMP ####[facility] [address] [address]Dr. William García Creatinine [Mass/Vol] 0.64 mg/dL Normal 0.55-1.02 [facility] Comment on above: Performed By: #### F T3, TSH, AST, LIPID, ALT, BMP ####[facility] [address] [place], [place] [address]Dr. William García EGFR-AF BRITISH >60 Normal >=60 [facility] Comment on above: Performed By: #### F T3, TSH, AST, LIPID, ALT, BMP ####[facility] [address] [address]Dr. William García EGFR-NON AF BRITISH >60 Normal >=60 [facility] Comment on above: Performed By: #### F T3, TSH, AST, LIPID, ALT, BMP ####[facility] [address] [address]Dr. William García Glucose [Mass/Vol] 87 mg/dL Normal 74-106 [facility] Comment on above: Performed By: #### F T3, TSH, AST, LIPID, ALT, BMP ####[facility] [address] [place], [place] [address]Dr. William García Potassium [Moles/Vol] 4.0 mmol/L Normal 3.5-5.1 [facility] Comment on above: Performed By: #### F T3, TSH, AST, LIPID, ALT, BMP ####[facility] [address] [address]Dr. William García Sodium [Moles/Vol] 142 mmol/L Normal 136-145 [facility] Comment on above: Performed By: #### F T3, TSH, AST, LIPID, ALT, BMP ####[facility] [address] [address]Dr. William García Urea nitrogen [Mass/Vol] 14.0 mg/dL Normal 7.0-18.0 [facility] Comment on above: Performed By: #### F T3, TSH, AST, LIPID, ALT, BMP ####[facility] [address] [address]Dr. William García Urea nitrogen/Creatinin e [Mass ratio] 21.9 mg/mg Normal [facility] Comment on above: Performed By: #### F T3, TSH, AST, LIPID, ALT, BMP ####[facility] [address] [address]DrBlanca García SGOTon 10-18-2021 AST [Catalytic activity/Vol] 18 U/L Normal 15-37 [facility] Comment on above: Performed By: #### F T3, TSH, AST, LIPID, ALT, BMP #### [facility] [address] [address] DrBlanca García SGPTon 10-18-2021 ALT [Catalytic activity/Vol] 24 U/L Normal 14-59 [facility] Comment on above: Performed By: #### F T3, TSH, AST, LIPID, ALT, BMP ####[facility] [address] [address]DrBlanca García TSHon 10-18-2021 TSH 0.729 uIU/mL Normal 0.358-3.740 [facility] Comment on above: Performed By: #### F T3, TSH, AST, LIPID, ALT, BMP ####[facility] [address] [place], [place] [address]LvDr. William García TSH RANGE SEE BELOW Normal [facility] Comment on above: Result Comment: <0.3 4 UIU/ml HYPERTHYROID 0.34-5.60 UIU/ml EUTHYROID >5.60 UIU/ml HYPOTHYROID Performed By: #### F T3, TSH, AST, LIPID, ALT, BMP ####[facility] [address] [place], [place] [address]XjDr. William García VITAMIN D 25 OHon 10-18-2021 VIT D 25-OH 25.2 ng/mL Normal [facility] Comment on above: Performed By: #### F T4, VITAD #### [facility] [address] [address] [address] William García VIT D RANGES SEE BELOW Normal [facility] Comment on above: Result Comment: <20 ng/mL Vit D deficient 20 - <30 ng/mL Vit D insufficient 30 - 100 ng/mL Vit D sufficient >100 ng/mL Potential Toxicity Performed By: #### F T4, VITAD #### [facility] [address] [address] [address] William García FREE T3 [facility] 06-01-2021 Triiodothyronine (T3) Free 2.5 pg/mL Normal 2.0-4.4 [facility] Comment on above: Performed By: #### F T3LC #### [facility] [address] [address] [address] William García VIT D 25-OH [facility] 2021 Vitamin D, 25-Hydroxy 23.2 ng/mL Critically low 30.0-100.0 [facility] Comment on above: Result Comment: Melissa min D deficiency has been defined by the [place] [employer] and an Endocrine Society practice guideline as a level of serum 25-OH vitamin D less than 20 ng/mL (1,2). The Endocrine Society went on to further define vitamin D insufficiency as a level between 21 and 29 ng/mL (2). 1. IOM ([place] [employer]). 2010. Dietary reference intakes for calcium and D. [facility]: The National Academies Press. 2. Ashley MF, Nicole NC, Mac ALMEIDA, et al. Evaluation, treatment, and prevention of vitamin D deficiency: an Endocrine Society clinical practice guideline. JCEM. 2010; 96(7):1911-30. Performed By: #### V ITADLC #### [facility] [address] [place] [address] Dr. William García FREE T4on 05-31-2021 Free T4 [Mass/Vol] 0.96 ng/dL Normal 0.78-2.19 [facility] Comment on above: Performed By: #### F T4 #### [facility] [address] [place] [address] Dr. William García TSHon 05-31-2021 TSH 9.014 uIU/mL Critically high 0.470-4.680 [facility] Comment on above: Performed By: #### T SH #### [facility] [address] [place] [address] Dr. William García TSH RANGE SEE BELOW Normal [facility] Comment on above: Result Comment: <0.3 4 UIU/ml HYPERTHYROID 0.34-5.60 UIU/ml EUTHYROID >5.60 UIU/ml HYPOTHYROID Performed By: #### T SH #### [facility] [address] [place] [address] Dr. William García Vital Signs Date Time Vital Sign Value Performing Clinician Facility 07-10-2023 14:08-0500 Blood Pressure Location Jose M DOROTHYL [facility] 07-10-2023 14:08-0500 Diastolic blood pressure 70 mm[Hg] Jose M goviralL [facility] 07-10-2023 14:08-0500 Heart rate 74 /min Jose M DE LA CRUZL [facility] 07-10-2023 14:08-0500 Respiratory rate 16 /min Jose M DE LA CRUZL [facility] 07-10-2023 14:08-0500 Systolic blood pressure 114 mm[Hg] Jose M DE LA CRUZEboni [facility] [place] 06-27-2023 09:43-0500 Body height 167.6 cm Fay Bonillatyrese MOUNTER Work Phone: [facility] 06-27-2023 09:43-0500 Body mass index (BMI) [Ratio] 21.89 kg/m2 Fay Naida MOUNTER Work Phone: [facility] 06-27-2023 09:43-0500 Body temperature 97.11 [degF] Fay Naida MOUNTER Work Phone: [facility] 06-27-2023 09:43-0500 Body weight 61.51 kg Fay Sosarameshnegar MOUNTER Work Phone: [facility] 06-27-2023 09:43-0500 Diastolic blood pressure 62 mm[Hg] Fay Naida MOUNTER Work Phone: [facility] 06-27-2023 09:43-0500 Heart rate 67 /min Fay Pascal MOUNTER Work Phone: [facility] 06-27-2023 09:43-0500 Respiratory rate 18 /min Fay Pascal MOUNTER Work Phone: [facility] 06-27-2023 09:43-0500 SaO2% (BldA) [Mass fraction] 97 % Fay Naida MOUNTER Work Phone: [facility] 06-27-2023 09:43-0500 Systolic blood pressure 98 mm[Hg] Fay Naida MOUNTER Work Phone: [facility] 07-30-2022 09:36-0400 Body height 167.6 cm Amanda JARA-C Work Phone: [facility] 07-30-2022 09:36-0400 Body temperature 97.81 [degF] Amanda JARA-C Work Phone: [facility] 07-30-2022 09:36-0400 Body weight 65.77 kg Amanda Abdirahmankovic PA-C Work Phone: [facility] 07-30-2022 09:36-0400 Diastolic blood pressure 59 mm[Hg] Amanda Abdirahmankovic PA-C Work Phone: [facility] 07-30-2022 09:36-0400 Heart rate 65 /min Amanda Sankovic PA-C Work Phone: [facility] 07-30-2022 09:36-0400 SaO2% (BldA) [Mass fraction] 98 % Amanda Abdirahmankovic PA-C Work Phone: [facility] 07-30-2022 09:36-0400 Systolic blood pressure 109 mm[Hg] Amanda Abdirahmankovic PA-C Work Phone: [facility] 10-10-2021 10:30-0400 Body height 167.64 cm Panda Satnos Other [facility] Other 10-10-2021 10:30-0400 Body mass index (BMI) [Ratio] 22.27 kg/m2 Panda Santos Other [facility] Other 10-10-2021 10:30-0400 Body temperature 96.4 [degF] Panda Santos Other [facility] Other 10-10-2021 10:30-0400 Body weight 62.6 kg Panda Santos Other [facility] Other 10-10-2021 10:30-0400 Diastolic blood pressure 68 mm[Hg] Panda Santos Other [facility] Other 10-10-2021 10:30-0400 SaO2% (BldA) [Mass fraction] 99 % Panda Santos Other [facility] Other 05-24-2022 10:30-0400 Systolic blood pressure 103 mm[Hg] Panda Tom Other [facility] Other 07-18-2021 16:00-0500 Body height 167.64 cm Panda Hicks Other [facility] Other 07-18-2021 16:00-0500 Body mass index (BMI) [Ratio] 22.92 kg/m2 Panda Hicks Other [facility] Other 07-18-2021 16:00-0500 Body weight 64.41 kg Panda Hicks Other [facility] Other 07-18-2021 16:00-0500 Diastolic blood pressure 67 mm[Hg] Panda Hicks Other [facility] Other 07-18-2021 16:00-0500 Systolic blood pressure 119 mm[Hg] Panda Hicks Other [facility] Other 06-15-2021 11:00-0500 Body height 167.64 cm Panda Hicks Other [facility] Other 06-15-2021 11:00-0500 Body mass index (BMI) [Ratio] 22.43 kg/m2 Panda Hicks Other [facility] Other 06-15-2021 11:00-0500 Body weight 63.05 kg Panda Hicks Other [facility] Other 02-23-2021 16:30-0400 Body height 167.64 cm Kelsey Pop Other [facility] Other 02-23-2021 16:30-0400 Body mass index (BMI) [Ratio] 22.59 kg/m2 Kelsey Pop Other [facility] Other 02-23-2021 16:30-0400 Body weight 63.5 kg Kelsey Pop Other [facility] Other Encounters Encounter Date Encounter Type Care Provider Facility Start: 07-18-2023 End: 07-18-2023 ambulatory Fay Pascal Facility:[facility] Start: 07-10-2023 End: 07-11-2023 ambulatory Jose M SANTO Facility:[facility] Start: 07-10-2023 End: 07-10-2023 Patient encounter procedure Jose M SANTO General Surgery Nill/Said [facility] Start: 06-27-2023 ambulatory Jose M SANTO Facility:[facility] Start: 06-27-2023 Bamboo flowsheet Fay Pascal MOUNTER Work Phone: [facility] Start: 06-27-2023 Bamboo flowsheet Fay Pascal MOUNTER Work Phone: [facility] Start: 06-27-2023 Clinisync Result Encounter Fay Pascal MOUNTER Work Phone: [facility] Unsolicited Start: 06-27-2023 End: 06-27-2023 ambulatory FAY PASCAL Not Available Start: 06-27-2023 End: 06-27-2023 Office outpatient visit 25 minutes Fay Pascal MOUNTER Work Phone: [facility] Comment on above: Rectal bleeding (Geraldine yesica Dx); Hypothyroidism, adult (CMS/HCC); Vitamin D deficiency; BMI 21.0-21.9, adult; Heart murmur Start: 07-30-2022 End: 07-30-2022 ambulatory AMANDA CHRISTINE Facility:[facility] Start: 07-30-2022 End: 07-30-2022 Patient encounter procedure Amanda Christine PA-C Work Phone: [facility] Comment on above: Rectal discharge (Pr imary Dx) Start: 05-09-2022 End: 05-10-[address] PHOENIX GARNER Facility:[facility] Start: 10-18-2021 End: 10-19-[address] PHOENIX GARNER Facility:[facility] Start: 10-10-2021 End: 10-10-2021 ambulatory Panda Santos Other [facility] Other Start: 10-10-2021 Office outpatient visit 40 minutes Panda Santos [facility] Start: 07-18-2021 End: 07-18-2021 ambulatory Panda Hicks Other [facility] Other Start: 07-18-2021 Office outpatient visit 15 minutes Panda Hicks [facility] Start: 06-20-2021 End: 06-20-2021 ambulatory Panda Hicks Other [facility] Other Start: 06-20-2021 Telephone encounter Panda Hicks [facility] Start: 06-15-2021 End: 06-15-2021 ambulatory Panda Hicks Other [facility] Other Start: 06-15-2021 Office outpatient visit 25 minutes Panda Hicks [facility] Start: 05-31-2021 End: 06-01-[address] PHOENIX GARNER Facility:[facility] Start: 05-02-2021 End: 05-02-2021 ambulatory Panda Hicks Other [facility] Other Start: 05-02-2021 Telephone encounter Panda Hicks [facility] Start: 05-01-2021 End: 05-01-2021 ambulatory Panda Hicks Other [facility] Other Start: 05-01-2021 Telephone encounter Panda Savagegriselda [facility] Start: 04-10-2021 End: 04-10-2021 ambulatory Panda Hicks Other [facility] Other Start: 04-10-2021 Telephone encounter Panda Savagegriselda [facility] Start: 03-20-2021 Telephone encounter Panda Hicks [facility] Start: 02-23-2021 Office outpatient visit 15 minutes Kelsey Pop [facility] Procedures Date Procedure Procedure Detail Performing Clinician Start: 06-27-2023 ALL CBC WITH AUTO DIFF Fay Pascal MOUNTER Work Phone: Start: 05-10-2023 Mammography Fay man MOUNTER Work Phone: Start: 04-03-2021 Colonoscopy Fay man MOUNTER Work Phone: Start: 04-03-2021 Colonoscopy Jose M NI LL Start: 04-03-2021 Esophagogastroduodenoscopy Jose M NILL Start: 05-20-2014 Colonoscopy Jose M NI LL Arthroscopy of knee Jose M NILL Arthroscopy of shoulder Gucci ael NILL Bladder excision Jose M NIL L Comment on above: right upper back Colonoscopy Jose M NILL Laparoscopy Jose M NILL Ligation of fallopian tube Macho golden NILL Plan of Treatment Date Care Activity Detail Author Start: 04-03-2031 Screening for malign ant neoplasm of colon [facility] Start: 05-10-2024 Screening for malign ant neoplasm of breast Mamm[facility] Start: 01-04-2024 Medicare Annual Well ness (AWV) Medicare Annual Wellness (AWV) [facility] Start: 07-31-2023 End: 07-31-2023 Patient encounter procedure 07/31/2023 9:20 AM EDT Office Visit [facility] [address] [place] [address] Fay Pascal NP [address] [place] [address] [facility] Start: 06-27-2023 End: 06-27-2024 25-hydroxyvitamin D3 [Mass/volume] in Serum or Plasma Vitamin D 25 hydroxy Lab Routine Vitamin D deficiency Expected: 06/27/2023 (Approximate), Expires: 06/27/2024 [facility] Work Phone: Comment on above: Expected: 06/27/2023 (Approximate), Expires: 06/27/2024 Start: 06-27-2023 End: 06-27-2024 CBC W Auto Differential panel - Blood CBC and differential Lab Routine Rectal bleeding Expected: 06/27/2023 (Approximate), Expires: 06/27/2024 [facility] Comment on above: Expected: 06/27/2023 (Approximate), Expires: 06/27/2024 Start: 06-27-2023 End: 06-27-2024 Comprehensive metabolic 2000 panel - Serum or Plasma Comprehensive metabolic panel Lab Routine Hypothyroidism, adult (CMS/HCC) Vitamin D deficiency Rectal bleeding Expected: 06/27/2023 (Approximate), Expires: 06/27/2024 [facility] Comment on above: Expected: 06/27/2023 (Approximate), Expires: 06/27/2024 Start: 06-27-2023 End: 06-27-2024 Erythrocyte sedimentation rate Sedimentation rate, automated Lab Routine Rectal bleeding Expected: 06/27/2023 (Approximate), Expires: 06/27/2024 [facility] Comment on above: Expected: 06/27/2023 (Approximate), Expires: 06/27/2024 Start: 06-27-2023 End: 06-27-2024 Ferritin [Mass/volume] in Serum or Plasma Ferritin Lab Routine Rectal bleeding Expected: 06/27/2023 (Approximate), Expires: 06/27/2024 [facility] Comment on above: Expected: 06/27/2023 (Approximate), Expires: 06/27/2024 Start: 06-27-2023 End: 06-27-2024 Iron and Iron binding capacity panel - Serum or Plasma Iron level Lab Routine Rectal bleeding Expected: 06/27/2023 (Approximate), Expires: 06/27/2024 [facility] Comment on above: Expected: 06/27/2023 (Approximate), Expires: 06/27/2024 Start: 06-27-2023 End: 06-27-2024 Thyrotropin [Units/volume] in Serum or Plasma TSH Lab Routine Hypothyroidism, adult ([facility]) Expected: 06/27/2023 (Approximate), Expires: 06/27/2024 [facility] Comment on above: Expected: 06/27/2023 (Approximate), Expires: 06/27/2024 Start: 06-27-2023 End: 06-27-2024 Thyroxine (T4) free [Mass/volume] in Serum or Plasma T4, free Lab Routine Hypothyroidism, adult ([facility]) Expected: 06/27/2023 (Approximate), Expires: 06/27/2024 [facility] Comment on above: Expected: 06/27/2023 (Approximate), Expires: 06/27/2024 Start: 06-27-2023 End: 06-27-2024 Triiodothyronine (T3) Free [Mass/volume] in Serum or Plasma T3, free Lab Routine Hypothyroidism, adult ([facility]) Expected: 06/27/2023 (Approximate), Expires: 06/27/2024 [facility] Comment on above: Expected: 06/27/2023 (Approximate), Expires: 06/27/2024 Start: 06-27-2023 End: 06-27-2023 Patient encounter procedure 06/27/2023 9:40 AM EST Office Visit [facility] [address] [place] [id number] Fay Pascal NP [address] [place] [address] Hypothyroidism, adult ([facility]/HCC) (Primary Dx); Vitamin D deficiency [facility] Comment on above: Hypothyroidism, adul t (CMS/HCC) (Primary Dx); Vitamin D deficiency Start: 01-18-2023 Influenza vaccination Influenza Vacc ine (#1) [facility] Start: 05-20-2022 ADVANCE DIRECTIVE DISCUSSION ADVANCE DIRECTIVE DISCUSSION [facility] Start: 05-20-2022 DEPRESSION ASSESSMENT DEPRESSION ASS ESSMENT [facility] Start: 01-18-2022 Influenza vaccination INFLUENZA (#1) [facility] Start: 2020 BONE DENSITY BONE DENSITY [facility] Start: 2020 PNEUMOCOCCAL: 65+ (1 - PCV) PNEUMOCOCCAL: 65+ (1 - PCV) [facility] Start: 2005 SHINGRIX VACCINE (1 of 2) HARTMANN GRIX VACCINE (1 of 2) [facility] Start: 2000 COLOGUARD (FIT-DNA) COLOGUARD (FIT-D NA) [facility] Start: 2000 Colonoscopy COLONOSCOPY [facility] Start: 2000 COLORECTAL CANCER SCREENING COLORECTAL CANCER SCREENING [facility] Start: [address] COLONOGRAPHY [facility] Start: 2000 DIABETES SCREEN DIABETES SCREEN [facility] Start: 2000 FECAL OCCULT BLOOD FECAL OCCULT BLOO D [facility] Start: 2000 LIPID SCREEN LIPID SCREEN [facility] Start: 2000 SIGMOIDOSCOPY SIGMOIDOSCOPY [facility] Start: 1995 Mammography MAMMOGRAM [facility] Start: 1974 Urine microalbumin profile DTAP,TDAP ,TD (1 - Tdap) [facility] Start: 1973 HEPATITIS C SCREENING HEPATITIS C SC REENING [facility] Start: 01-15-1956 COVID-19 VACCINE (#1) COVID-19 VACCI NE (#1) [facility] Start: 1955 Screening for malign ant neoplasm of colon [facility] Immunizations Immunization Date Immunization Notes Care Provider Marycarmen alanis 02-27-2022 Pneumococcal Conjuga te PCV 20 Fay Pascal MOUNTER Work Phone: [facility] 02-23-2021 Kenalog -40 mg Kelsey mckee Other [facility] Other 09-28-2020 Kenalog -40 mg Kelsey mckee Other [facility] OTR Other 09-28-2020 [employer]-One Kelsey dior Other [facility] Other 07-15-2014 pneumococcal conjuga te vaccine, 13 valent Fay Ianholz MOUNTER Work Phone: [facility] 08-18-2009 pneumococcal polysaccharide vaccine, 23 valent Fay Aichholz MOUNTER Work Phone: [facility] NEGATED: Highlighted row has not occurred!07-10-2023 influenza virus vaccine, unspecified formulation Jose M SANTO [facility] [place] Payers Date Payer Category Payer Self-pay 2020 Medicare [id number] 2020 Private Health Insurance [employer] A ETNA MEDICARE SUPPLEMENT [id number] 2020-Present [phone] [address] [address] [place] [address] Indemnity [id number] 1959 Medicare [id number] 1959 Private Health Insurance CLI [id number] 1955 Unknown [id number] 1955 Unknown [id number] 1955 Unknown [id number] 1955 Unknown [id number] 1955 Unknown [id number] Unknown [id number] Social History Date Type Detail Facility Start: 06-26-2023 End: 06-27-2023 Sex Assigned At [facility] Start: 07-30-2022 End: 07-10-2023 Tobacco smoking status NHIS Never smoked tobacco [facility] Start: 07-30-2022 End: 06-25-2023 Tobacco use and exposure Smokeless tobacco non-user [facility] Start: 07-30-2022 End: 06-27-2023 Alcohol intake Ex-drinker (finding) [facility] Start: 1955 Sex Assigned At Not on file [facility] Start: 06-26-2023 End: 06-27-2023 [facility] Within the last year , have you been afraid of your partner or ex-partner? No [facility] Attends Muslim Services Not on file [facility] Are you now , , , , never or living with a partner? [facility] How often to you hav e a drink containing alcohol? Never [facility] Do you feel stress - tense, restless, nervous, or anxious, or unable to sleep at night because your mind is troubled all the time - these days [OSQ] To some extent [facility] (I/We) worried wheth er (my/our) food would run out before (I/we) got money to buy more. Never true [facility] Start: 06-25-2023 Alcohol Comment coffee 1-2 cups per day [facility] Functional Status Date Assessment Result Facility 07-10-2023 Functional Status N/A [facility] Clinical Notes 02-23-2021 to 07-10-2023 Fay Pascal, DELMY - 06/27/2023 10:57 AM Murphy Pascal, DELMY - 06/27/2023 10:51 AM Murphy Pascal, DELMY - 06/27/2023 10:50 AM Murphy Pascal, MOUNTER - 06/27/2023 9:40 AM ESTPatient Instructions Note Date & Type Note Facility 07-10-2023 Note Chief Complaint consultation for rectal bleeding HPI Staff 67yo year old female presents on consultation from Fay Pascal for rectal bleeding. Reports several year history of intermittent bleeding. Reports blood is bright red and not associated with bowel movement or straining. Reports two episodes of blood dripping from rectum. First episode lasted one hour. Second episode lasted 10-20 minutes. Reports last episode of bleeding she was taking NSAID. Denies abdominal or rectal pain. Denies change in bowel habits. Denies nausea or vomiting. Last colonoscopy completed 03/2021 with diverticulosis, hemorrhoids and ascending colon tubular adenoma. No known family history of colon cancer. History of Present Illness 67 yo female with h/o hypothyroidism, referred for intermittent rectal bleeding; bright red blood per rectum over last several years, worse after taking NSAIDs; no change in bms, blood typically after bm, no hematochezia or melena, in toilet bowel and with wiping; last colonoscopy 03/2021 with removal of ascending colon tubular adenoma; abdominal operations significant for laparoscopy and tubal ligation; no asa use, occasional Advil; no fmhx of GI malignancy or IBD. no tobacco use. Review of Systems PHQ Score Initial Depression Screen Score: 0 SCORE ROS - Provider Constitutional: no fever, no sweats, no weight loss. Eyes: no glasses, no blurred vision, no visual loss. ENMT: no dentures, no hoarseness, no swallowing difficulties, no hearing loss, no ear infection(s), no nose bleeds. Cardiovascular: normal blood pressure, no chest pain, regular heartbeat, no heart murmur. Respiratory: no shortness of breath, no cough, no asthma, no wheezing. Gastrointestinal: no nausea, no vomiting, no diarrhea, no constipation, no blood in stool, no change in bowel habits, no abdominal pain, no hepatitis. Genitourinary: no kidney stones, no urine infection, no dysuria. Musculoskeletal: no pain, no weakness. Skin: no changing moles, no rash, no skin lumps. Neurologic: no seizures, no epilepsy, no headache. Psychiatric: no emotional or psychiatric problem. Heme/Lymph: no bleeding problems, no anemia, no blood clots, no transfusions. Allergy/Immunologic: no swollen lymph nodes/glands, no IV drug abuse. Other: Additional ROS info: Except as noted in the above Review of Systems and in the History of Present Illness, all other systems have been reviewed and are negative or noncontributory. Physical Exam Vitals & Measurements HR: 74(Peripheral) RR: 16 BP: 114/70 HT: 66 in HT: 167.6 cm WT: 62.4 kg WT: 137.28 lb BMI: 22.21 HEENT: normal conjunctiva, sclera clear, no scleral icterus, EOM intact, PERRLA, oral mucosa moist without lesions. Neck: trachea midline, no mass, symmetric, no thyromegaly or nodules, no adenopathy Respiratory: lungs CTA, respirations non labored. Cardiovascular: regular rate and rhythm, no murmur, no pedal edema or varicosities. Gastrointestinal: soft, non distended, no tenderness, no masses, no palpable hernias, diastasis recti no, no hepatosplenomegaly; normal bs Lymphatic: no cervical adenopathy, no supraclavicular adenopathy. Musculoskeletal: normal gait, digits and nails without infection, nodes, cyanosis, clubbing. Skin: no rashes, no lesions, no ulcers, no subcutaneous nodules, induration. Psychiatric/Neuro: oriented to time, place, person, judgement normal, affect appropriate for age, insight intact, no focal deficits. Tests: review of old records completed , Discussed surgical options, risks, and possible complications with patient. Assessment/Plan 1. Rectal bleeding (K62.5: Hemorrhage of anus and rectum) plan colonoscopy under anesthesia for further evaluation, informed consent obtained. Follow-up No qualifying data available Problem List/Past Medical History Ongoing BMI 22.0-22.9, adult Diverticulosis Dyslipidemia Heart murmur Hemorrhoid History of colon polyps Hypothyroidism Intolerance to lactose Irritable bowel syndrome with diarrhea Lesion of liver Obstructive sleep apnea syndrome Osteoporosis Prediabetes Rectal bleeding Squamous cell carcinoma of skin Vitamin D deficiency Historical Gastroesophageal reflux disease Psychophysiologic insomnia Procedure/Surgical History Colonoscopy (04/03/2021), EGD - esophagogastroduodenoscopy (04/03/2021), Colonoscopy (2014), Arthroscopy of knee, Arthroscopy of shoulder, Colonoscopy, Cystectomy, Laparoscopy, Tubal ligation. Medications Synthroid 100 mcg Tab, 100 mcg= 1 tab(s), Oral, Daily Vitamin D 50,000 intl units (1.25 mg) oral capsule, [id number] International_Unit= 1 cap(s), Oral, qWeek Allergies No Known Allergies No Known Medication Allergies Social History Alcohol - Denies Alcohol Use, 07/10/2023 Substance Abuse - Denies Substance Abuse, 07/10/2023 Tobacco Never (less than 100 in lifetime) Tobacco Use:. Never Smokeless Tobacco Use:., 07/10/2023 Family History Liver cancer: Brother. Primary yeimi (more content not included)... [facility] Comment on above: Result Comment: Elec tronically Signed By: MERCY MARTINEZ, Jose M Licona\liam\Date and Time Signed: 07/10/23 16:43 EST 06-27-2023 History of Present illness Narrative Associated Problem(s): Heart murmur Not symptomatic, however we will work up with ECHO after done with rectal bleeding Associated Problem(s): Rectal bleeding Check cbc, sed rate, iron ferritin, chem 14 Refer to General surgeon dr santo for this Did have normal colonoscopy 2020: Hykes, sessile polyp, mild sigmoid diverticulosis, mild external hemorrhoids Repeat scope in 5 years which would be 2025 She does report that the blood drips out of rectum for 20 minutes at least at times No rectal exam completed, will have her see general surgeon for evaluation Associated Problem(s): Hypothyroidism, adult (CMS/HCC) Check labs Images from the original note were not included. Alesha Bonilla is a 67 y.o. female presents with chief complaint of No chief complaint on file. HPI: Here to establish care with this PCP from Dr Garner. Multiple concerns. Of utmost importance is rectal bleeding, this has been ongoing for several months, not related to straining. This started about 2-3 years ago. Is happening more freq, no pain. No vaginal bleeding noted, no abd bloating. Appetite is good too. She does notice the rectal bleed can be worse if takes NSAIDs for joint pain. Had colonoscopy and EGD 03/2021 Rectal Bleeding This is a chronic problem. The current episode started more than 1 month ago. The problem occurs daily. The problem has been waxing and waning. Associated symptoms include arthralgias and fatigue. Pertinent negatives include no abdominal pain, anorexia, change in bowel habit, chest pain, chills, congestion, coughing, fever, headaches, joint swelling, myalgias, nausea, rash, sore throat or vomiting. Nothing aggravates the symptoms. She has tried nothing for the symptoms. Thyroid Problem Presents for follow-up visit. Symptoms include anxiety, fatigue and hair loss. Patient reports no cold intolerance, constipation, diarrhea, hoarse voice, leg swelling, palpitations, tremors, weight gain or weight loss. The symptoms have been stable. SUBJECTIVE: MEDICATIONS: Current Outpatient Medications Medication Instructions alendronate (FOSAMAX) 70 mg, Oral, Every 7 days, Take in the morning with a full glass of water, on an empty stomach, and do not take anything else by mouth or lie down for the next 30 min. atorvastatin (LIPITOR) 20 mg, Oral, Daily Calcium Carb-Cholecalciferol (CALCIUM 500 + D PO) 2 tablets, Oral, 2 times daily (12/29) ergocalciferol (VITAMIN D-2) 1.25 mg, Oral, Weekly levothyroxine (SYNTHROID, LEVOXYL) 100 mcg, Oral, Daily before breakfast omeprazole (PRILOSEC) 40 mg, Oral, Daily before breakfast, Do not crush or chew. vitamin C 1,000 mg, Oral, Daily ALLERGIES: No Known Allergies REVIEW OF SYMPTOMS: Review of Systems Constitutional: Positive for fatigue. Negative for appetite change, chills, fever, weight gain and weight loss. HENT: Negative for congestion, ear pain, hoarse voice and sore throat. Eyes: Negative for pain, discharge, redness and visual disturbance. Respiratory: Negative for cough, shortness of breath and wheezing. Cardiovascular: Negative for chest pain, palpitations and leg swelling. Gastrointestinal: Positive for anal bleeding, blood in stool and hematochezia. Negative for abdominal pain, anorexia, change in bowel habit, constipation, diarrhea, nausea, rectal pain and vomiting. Genitourinary: Negative for difficulty urinating, dysuria and frequency. Musculoskeletal: Positive for arthralgias. Negative for back pain, joint swelling and myalgias. Skin: Negative for rash and wound. Neurological: Negative for dizziness, tremors, seizures, syncope and headaches. Psychiatric/Behavioral: Negative for behavioral problems, self-injury and suicidal ideas. The patient is nervous/anxious. Hematological: Does not bruise/bleed easily. Endocrine: Negative for cold intolerance, polydipsia, polyphagia and polyuria. Allergic/Immunologic: Negative for environmental allergies and food allergies. PAST MEDICAL HISTORY Past Medical History: Diagnosis Date Basal cell carcinoma 06/27/2023 Childbirth x3 Dyslipidemia ([facility]) 06/27/2023 Gastroesophageal reflux disease 06/27/2023 Hypothyroidism, adult ([facility]) 06/27/2023 Lichenification and lichen simplex chronicus 06/27/2023 Osteoarthritis 06/27/2023 Osteoporosis, 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[facility]) 06/27/2023 Prediabetes 06/27/2023 Primary osteoarthritis of right knee 06/27/2023 Right hip pain 06/27/2023 SCC (squamous cell carcinoma) 06/27/2023 Vitamin D deficiency 06/27/2023 Past Surgical History: Procedure Laterality Date COLONOSCOPY 2014 COLONOSCOPY 04/03/2021 colonoscopy / EGD - Dr Hicks KNEE SURGERY Right OTHER SURGICAL HISTORY Lumpectomy, right upper back PELVIC LAPAROSCOPY SHOULDER SURGERY Right TUBAL LIGATION family history includes Cancer in her father; Colon cancer in her brother; Hyperlipidemia in her mother; Liver cancer in her brother; Lung cancer in her father. OBJECTIVE: Visit Vitals BP 98/62 (BP Location: Left arm, Patient Position: Sitting, BP Cuff Size: Adult long) Pulse 67 Temp 97.1 F (Temporal) Resp 18 Ht 5' 6 Wt 135 lb 9.6 oz SpO2 97% BMI 21.89 kg/m Smoking Status Never BSA 1.69 m Physical Exam Vitals reviewed. Constitutional: General: She is not in acute distress. Appearance: Normal appearance. HENT: Head: Normocephalic and atraumatic. Right Ear: External ear normal. There is impacted cerumen. Left Ear: External ear normal. There is impacted cerumen. Ears: Comments: Removed large chunk of adams wax from right canal, smaller amount from left Tolerated well reports can hear better Nose: Nose normal. Mouth/Throat: Mouth: Mucous membranes are moist. Eyes: Extraocular Movements: Extraocular movements intact. Conjunctiva/sclera: Conjunctivae normal. Neck: Vascular: No carotid bruit. Cardiovascular: Rate and Rhythm: Normal rate and regular rhythm. Pulses: Normal pulses. Heart sounds: Murmur heard. Pulmonary: Effort: Pulmonary effort is normal. No respiratory distress. Breath sounds: Rhonchi present. No wheezing or rales. Abdominal: General: Bowel sounds are normal. There is no distension. Palpations: Abdomen is soft. There is no mass. Tenderness: There is no abdominal tenderness. Hernia: A hernia (ventral hernia just superior to umbilical region, reducible, non tender) is present. Musculoskeletal: General: Normal range of motion. Cervical back: Neck supple. Lymphadenopathy: Cervical: No cervical adenopathy. Skin: General: Skin is warm and dry. Capillary Refill: Capillary refill takes 2 to 3 seconds. Findings: No rash. Neurological: General: No focal deficit present. Mental Status: She is alert and oriented to person, place, and time. Psychiatric: Mood and Affect: Mood normal. Behavior: Behavior normal. Thought Content: Thought content normal. Judgment: Judgment normal. ASSESSMENT AND PLAN: No follow-ups on file. Problem List Items Addressed This Visit Vitamin D deficiency Relevant Orders Vitamin D 25 hydroxy Comprehensive metabolic panel Hypothyroidism, adult (CMS/HCC) - Primary Check labs Relevant Orders TSH T4, free T3, free Comprehensive metabolic panel BMI 21.0-21.9, adult Rectal bleeding Check cbc, sed rate, iron ferritin, chem 14 Refer to General surgeon dr santo for this Did have normal colonoscopy 2020: Hykes, sessile polyp, mild sigmoid diverticulosis, mild external hemorrhoids Repeat scope in 5 years which would be 2025 She does report that the blood drips out of rectum for 20 minutes at least at times No rectal exam completed, will have her see general surgeon for evaluation Relevant Orders CBC and differential Comprehensive metabolic panel Iron level Ferritin Sedimentation rate, automated Ambulatory referral to General Surgery Heart murmur Not symptomatic, however we will work up with ECHO after done with rectal bleeding Wants to ask about thyroid medication and cologuard documented in this encounter [facility] 07-30-2022 Instructions Amanda Christine PA-C - 07/30/2022 [...] if no improvement documented in this encounter [facility] 07-30-2022 History and physical note COLORECTAL SURGERY New/Consult Alesha Bonilla 67 [...] CT scan,MRI and colonoscopy ( brought to restaurant front manager to be scanned in) were completed and [...] was otherwise normal. Patient tolerated procedure well. Medical Scheduler present: Yes, Kristin Fuentes MA Diagnostic tests reviewed for today's visit: Colonoscopy Report CT imaging MRI imaging All outside imaging and records were reviewed with the patient during consultation. Assessment Assessment and Plan: Alesha Bonilla is a 67 year old female who comes to [facility] for rectal mucous/ discharge. Upon obtaining [...] which included preparing to see the patient, [id number] patient care, completing clinical documentation, obtaining and/or reviewing separately obtained history, performing a medically appropriate examination, counseling and educating the patient/family/caregiver, and ordering medications, tests, or procedures. documented in this encounter [facility] 10-10-2021 Evaluation note Encounter Date Diagnosis Assessment [...] Other 1 hour and 10 minutes spent [id number] with the patient, the majority in counseling and education [facility] Other 03-01-2022 Evaluation note* Encounter Date Diagnosis Assessment Notes Treatment Notes Treatment Clinical Notes Jul, Irritable bowel syndrome with diarrhea (ICD-10 - K58.0) Jul, GERD (gastroesophageal reflux disease) (ICD-10 - K21.9) Jul, Liver hemangioma (ICD-10 - D18.03) Jul, Other REASSURANCE REPEAT RUQ U/S IN 4-6 MONTHS (IN RECALL) [facility] Other 02-01-2022 Evaluation note* Encounter Date Diagnosis Assessment Notes Treatment Notes Treatment Clinical Notes Jun, Liver lesion (ICD-10 - K76.9) [facility] Other 01-27-2022 Evaluation note* Encounter Date Diagnosis [...] without obstruction or gangrene (ICD-10 - K43.9) [facility] Other 11-22-2021 Evaluation note* Encounter Date Diagnosis Assessment Notes Treatment Notes Treatment Clinical Notes Mar, Diarrhea (ICD-10 - R19.7) Mar, Weight loss (ICD-10 - R63.4) [facility] Other 11-01-2021 Evaluation note* Encounter Date Diagnosis Assessment Notes Treatment Notes Treatment Clinical Notes Mar, Abdominal cramping (ICD-10 - R10.9) Mar, Diarrhea (ICD-10 - R19.7) [facility] Other 10-07-2021 Evaluation note* Encounter Date Diagnosis [...] Feb, Left hip pain (ICD-10 - M25.552) [facility] Other Evaluation + Plan note No data available for this section [facility] [place] Evaluation noteNo InformationNort AIM Other Evaluation note* Diagnosis Rectal discharge- Primary Other symptoms involving digestive system [facility] Rectal bleeding- Primary Hemorrhage of rectum and anus Hypothyroidism, adult (CMS/HCC) Other specified acquired hypothyroidism Vitamin D deficiency BMI 21.0-21.9, adult Heart murmur Undiagnosed cardiac murmurs documented in this encounter [facility] HealthcareHistory general Narrative - Reported* Type Description Date Medical History high cholesterol Medical History Hypothyroidism Surgical History meniscus repair Surgical History rotator cuff repair Surgical History lipoma removed from right shoul neela Surgical History skin cancer removal from lip Hospitalization History see above [facility] Other History general Narrative - Reported* Type Description Date Medical History high cholesterol Medical History Hypothyroidism Medical History obstructive sleep apnea Surgical History meniscus repair Surgical History rotator cuff repair Surgical History lipoma removed from right shoul neela Surgical History skin cancer removal from lip Hospitalization History see above [facility] Other Hospital Discharge instructions No data available for this section [facility] [place] Progress note No data available for this section [facility] [place] Reason for referral (narrative)* Consultation (Routine) - Pending Review Specialty Diagnoses / Procedures Referred By Conttito t Referred To Contact General Surgery Diagnoses Rectal bleeding Procedures TX OFFICE/OUTPATIENT NEW HIGH MDM 60 MINUTES Fay Pascal NP [address] [place] [address] Jose M Santo MD [address] [place] [address] Referral ID Status Reason Start Date Expiration Date Visits Requested Visits Authorized [id number] Pending Review Specialty Services Required 06/27/2023 12/24/2023 1 1 [facility] Healthcare Summary Purpose Family History No Family History Records FoundNo Family History Records FoundNo Family History Records Found No data available for this section No Family History Records FoundNo Family History Records Found Advance Directives No Advanced Directives Records FoundNo Advanced Directives Records FoundNo Advanced Directives Records FoundNo Advanced Directives Records FoundNo Advanced Directives Records Found Additional Source Comments REASON FOR VISIT (unrecogniz ed section and content) Reason Comments New Patient Clear discharge from rectum INFORMATION SOURCE (unrecogn ized section and content) DATE CREATED AUTHOR [facility]/17/2022 [facility] DATE CREATED AUTHOR AUTHOR'S ORGANIZ ATION 07/31/2022 [facility] DATE CREATED AUTHOR AUTHOR'S ORGANIZ ATION 06/28/2023 [facility] EPIC DATE CREATED AUTHOR AUTHOR'S ORGANIZ ATION 07/20/2023 [facility] DATE CREATED AUTHOR AUTHOR'S ORGANIZ ATION 07/21/2023 [facility] Source Comments (unrecognize d section and content) In the event this informatio n is protected by the Federal Confidentiality of Alcohol and Drug Abuse Patient Records regulations: The Federal rules restrict any use of the information to criminally investigate or prosecute any alcohol or drug abuse patient.[facility] Care Teams (unrecognized sec tion and content) Soda Fountain Manager Relationship Specialty Start Date End Date Phoenix Garner [address] [place], [place] [id number] PCP - General Family Medicine 07/26/22 Soda Fountain Manager Relationship Specialty Start Date End Date Phoenix Garner MD [address] [place] [id number] PCP - General Family Medicine 06/18/23 Soda Fountain Manager Relationship Specialty Start Date End Date Phoenix Garner MD [address] [place] [phone] PCP - General Family Medicine 06/18/23 Soda Fountain Manager Relationship Specialty Start Date End Date Phoenix Garner MD [address] [place] [phone] PCP - General Family Medicine 06/18/23 FOR RECORDS PERTAINING TO PATIENTS WHO ARE [...] BE BASED ON THE PRIMARY CLINICAL RECORDS. [facility]. provides no warranty or guarantee of the accuracy or completeness of information in this document.
== END 2023-07-22 13:37 | disposition home or self-care (01) ==
LOC: PST 13:36
PROVIDERS: PCP Family Medicine; Visit Provider Surgery
DX: Z01.818 Encounter for other preprocedural examination (principal); K62.5 Hemorrhage of anus and rectum

== ENCOUNTER 2023-07-31 07:17 | Day surgery (SDC) | payer MEDICARE, SELFPAY ==
--- NOTE | 2023-07-31 | OP_ITS ---
OPERATION DATE: 07/31/2023 PREOPERATIVE DIAGNOSIS: Rectal bleeding. POSTOPERATIVE DIAGNOSIS: Redundant colon, mild sigmoid diverticulosis, as well as irritated anal skin tags. PROCEDURE: Colonoscopy to cecum. SURGEON: Jose M Casas M.D. ANESTHESIA: Monitored anesthesia care. ESTIMATED BLOOD LOSS: Zero. INDICATIONS AND CONSENT: Patient is a 68-year-old female with history of intermittent rectal bleeding with bowel movements. Indications, risks, benefits, alternatives of proceeding with colonoscopy were explained extensively to the patient, including the risks of bleeding, colon perforation or anesthetic complications. All of her questions were answered. Informed consent was obtained. PROCEDURE: Patient brought to the operating room, placed in the left lateral decubitus position. Monitored anesthesia care was provided. Rectal exam was performed which showed no masses or blood. The scope was inserted into the anal canal. Under direct visualization was advanced. With the aid of abdominal compression, it was able to be advanced to the cecum, where cecal markings were clearly identified. There was no old or new blood. No inflammatory changes or ulcerations. No mass lesions. The scope was carefully removed and colonic mucosa was examined. Upon withdrawal of the scope, there was mild sigmoid diverticulosis. There were some prominent veins and vasculature throughout the colon, particularly in the rectum, mild sigmoid diverticulosis. No mass lesions or polyps. The scope was retroflexed in the anal canal. There was no significant hemorrhoidal disease. There did appear to be some irritation at the base of some anal skin tags without active bleeding. The scope was then withdrawn. Patient tolerated procedure well, was sent to recovery room in good condition.f/u colonoscopy in 10 years for screening CC: Phoenix Gannon M.D. [facility]
[2023-07-31 07:20] VITALS: BP 100/49; PULSE 70; RESP 18; TEMP 36.3; O2SAT 98; BMI 21.5
--- OUTSIDE RECORDS SUMMARY | 2023-07-31 07:20 | XMS_ITS | CCD ---
Author Name Unknown Address [address] [facility] [address] [place] [address] Organization [facility] Care Team Providers Care Interventional Radiology Rn Name Role Phone Kelsey Pop Unavailable Panda [...] Unavailable PASCUAL, DR PHOENIX Montaño Attending Unavailable NADERELivan, DR PHOENIX Montaño Admitting Unavailable NADERELivan, DR PHOENIX Montaño Primary Care Unavailable KEVINERELivan, DR PHOENIX Montaño Consulting Unavailable PASCUAL, DR PHOENIX Montaño Attending Unavailable Pascual, Phoenix Montaño Primary Care Provider [phone] AMANDA CHRISTINE Attending Unavailable PHOENIX GARNER Primary Care Unavailable FAY PASCAL Attending Unavailable Phoenix Garner MD Primary Care Provider [phone] FAY PASCAL Primary Care Physician Jose M SANTO Attending Unavailable FAY PASCAL Referring Unavailable Fay Pascal Attending Unavailable Fay Pascal Admitting Unavailable Phoenix Garner Primary Care Unavailable Allergies Allergy Classification Reported Allergen(s) Allergy Type Date of Onset Reaction(s) Facility (1 source) No Known Medication Allergies; Translations: [No Known Medication Allergies] Propensity to adverse reactions (disorder) [facility] Repository Medications Current Medications Medication Drug Class(es) [...] every week ergocalciferol (Vitamin D-2) 1.25 MG (59114 UT) capsule Take 1.25 mg by mouth [...] unspecified Onset: 06-20-2021 Resolved: 06-20-2021 Chronic Other liver diseases (1 source) Other specified diseases of liver; Translations: [Other specified diseases of liver] Onset: 07-18-2023 Chronic Other non-epithelial cancer of skin (9 [...] 4 Chronic Other aftercare (1 source) Other intermediate manager (current) drug therapy; Translations: [OTH LEAD TINNER CURRENT DRUG THERAPY] Onset: 2 Episodic Other [...] Range Facility Transfer Inon 07-19-2023 Transfer In [id number] Normal [facility] Blood Urea Nitrogenon 2023 Urea nitrogen [Mass/Vol] 16 mg/dL Normal 7- [facility] Comment on above: Order Comment: STAT FOR CT Performed By: #### B INNA LEWIS #### [address] abdomen pelvis w conon CT abdomen pelvis w con [facility] [address] [place] [address] CT Scan Report Signed Patient: Alesha Bonilla MR#: [id number] 57 : 1955 Acct:[id number] Age/Sex: 68 / F ADM Date: 07/18/23 Loc: CT Room: Type: [facility] Attending Dr: Fay Pascal Copies to: [place]TE [...] Cox Jr., D.O.07/18/2023 11:49 AM Dictation Location: [place] [address] Transcribed By: [facility] 07/18/23 1149 Dictated By: Jose Miguel Cxo Jr, DO 07/18/23 1144 Signed By: 07/18/23 1149 [facility] Creatinineon 07-18-2023 Creatinine [Mass/Vol] 0.82 mg/dL Normal 0.60-1.20 [facility] Comment on above: Order Comment: STAT FOR CT Performed By: #### B DEBBIE, CREAT #### [facility] [address] [place] [address] GFR/1.73 sq M.predicted MDRD (S/P/Bld) [Vol rate/Area] mL/min/{1.73_m2} Normal [facility] Comment on above: Order Comment: STAT FOR CT Result Comment: PERF ORMED BY: [place] [address] PATHOLOGIST [employer] DON BOSTON M.D. Performed By: #### B DEBBIE, CREAT #### [facility] [address] [place], [place] [id number] [facility] Facesheeton 07-11-2023 Facesheet [id number] Normal [facility] Ambulatory Visit Summaryon 0 07-10-2023 Ambulatory Visit Summary ALESHA BONILLA :1955 Visit Date:07/10/2023 Ambulatory Visit Instructions Your Care Team Attending Physician - Jose M SANTO MD Primary Care Physician - FAY PASCAL CNP Referring Physician - FAY PASCAL [...] you for choosing us for your care. Normal [facility] Physician Referralon 024 Physician Referral [id number] Hitesh [facility] ALL CBC WITH AUTO DIFFon BASOPHILS ABSOLUTE AUTO 0.0 [facility] Basophils/100 WBC (Bld) 0.8 % 0.2 - 2.0 % [facility] Eosinophils/100 WBC (Bld) 1.2 % 0.9 - 7.0 % [facility] Erythrocyte distribution width (RBC) [Ratio] 12.5 % 11.0 - 15.0 % [facility] Hematocrit (Bld) [Volume fraction] 39.2 % 36.0 - 48.0 % [facility] Hemoglobin (Bld) [Mass/Vol] 12.9 g/dL 12.0 - 16.0 g/dL [facility] IMMATURE GRANULOCYTES ABS AUTO 0.01 [facility] Immature granulocytes/100 WBC (Bld) 0.2 % 0.0 - 0.5 % [facility] Interpretation and review of laboratory results Abnormal [facility] LYMPHOCYTES ABSOLUTE AUTO 0.7 Low [facility] Lymphocytes/100 WBC (Bld) 14.3 % Low 20.5 - 60.0 % [facility] MCH (RBC) [Entitic mass] 29.9 pg 26.7 - 34.0 pg [facility] MCHC (RBC) [Mass/Vol] 32.9 g/dL 29.9 - 35.2 g/dL [facility] MCV (RBC) [Entitic vol] 90.7 fL 81.0 - 99.0 fL [facility] MONOCYTES ABSOLUTE AUTO 0.5 [facility] Monocytes/100 WBC (Bld) 9.4 % 1.7 - 12.0 % [facility] NEUTROPHILS ABSOLUTE AUTO 3.9 [facility] Neutrophils/100 WBC (Bld) 74.1 % 43.0 - 75.0 % [facility] Platelet mean volume (Bld) [Entitic vol] 10.2 fL 9.5 - 13.5 fL [facility] TBH EO # 0.1 [facility] PLT [address] [facility] RBC 4.32 [facility] TB WBC 5.2 [facility] CNOVon 07-30-2022 CNOV Office Visit (CORSMN ) ALESHA BONILLA ([id number]) 1955 F Date Time Provider Department 07/30/22 [...] scan,MRI and colonoscopy ( brought to front desk receptionist to be scanned in) were completed and [...] liver disea (more content not included)... Normal [facility] HISTORY PHYSICALon HISTORY PHYSICAL HNO ID: [id number] Author: Amanda Christine PA-C Service: ? Author Type: Physician [employer]um [employer] Tester Type: HANDP Filed: 07/30/2022 11:25 AM Note [...] scan,MRI and colonoscopy ( brought to front desk receptionist to be scanned in) were completed and [...] cord stimula (more content not included)... Normal [facility] MG MAMM SCREEN 3D NEETA CADon 05-09-2022 MG MAMM SCREEN 3D NEETA CAD Patient: ALESHA BONILLA Exam Date: 05/09/2022 : 1955 Gender:F Ordering : DR PHOENIX GARNER . Admission #: [id number] Family : Order #: [id number] CLICK HERE TO VIEW EXAM RADIOLOGY REPORT [...] lung cancer at age 74. LOCATION: [facility] BREAST COMPOSITION: Scattered areas fibroglandular density. [...] M.D. on 05/09/2022 at 10:59 Normal [facility] CBC AUTO DIFFon 10-18-2021 BASO # 0.0 103/ul Normal 0.0-0.1 [facility] Comment on above: Performed By: #### C BC #### [facility] [address] [place] [address] Dr. William García Basophils/100 WBC (Bld) 0.8 % Normal 0.2-2.0 [facility] Comment on above: Performed By: #### C BC #### [facility] [address] [place] [address] Dr. William García EO # 0.1 103/ul Normal 0.0-0.7 [facility] Comment on above: Performed By: #### C BC #### [facility] [address] [place] [address] Dr. William García Eosinophils/100 WBC (Bld) 2.0 % Normal 0.9-7.0 [facility] Comment on above: Performed By: #### C BC #### [facility] [address] [place] [address] Dr. William García Erythrocyte distribution width (RBC) [Ratio] 12.7 % Normal 11.0-15.0 [facility] Comment on above: Performed By: #### C BC #### [facility] [address] [place] [address] Dr. William García Hematocrit (Bld) [Volume fraction] 39.2 % Normal 36.0-48.0 [facility] Comment on above: Performed By: #### C BC #### [facility] [address] [place] [address] Dr. William García Hemoglobin (Bld) [Mass/Vol] 12.8 g/dL Normal 12.0-16.0 [facility] Comment on above: Performed By: #### C BC #### [facility] [address] [place] [address] Dr. William García IG # 0.01 10e3/ul Normal 0.00-0.03 [facility] Comment on above: Performed By: #### C BC #### [facility] [address] [place] [address] Dr. William García IG % 0.2 % Normal 0.0-0.5 [facility] Comment on above: Performed By: #### C BC #### [facility] [address] [place] [address] Dr. William García LYMPH # 0.9 103/ul Critically low 1.2-3.8 [facility] Comment on above: Performed By: #### C BC #### [facility] [address] [place] [address] Dr. William García Lymphocytes/100 WBC (Bld) 17.4 % Critically low 20.5-60.0 [facility] Comment on above: Performed By: #### C BC #### [facility] [address] [place] [address] Dr. William García MANUAL DIFF REQ NO Normal [facility] Comment on above: Performed By: #### C BC #### [facility] [address] [place] [address] Dr. William García MCH (RBC) [Entitic mass] 30.0 pg Normal 26.7-34.0 [facility] Comment on above: Performed By: #### C BC #### [facility] [address] [place] [address] Dr. William García MCHC (RBC) [Mass/Vol] 32.7 g/dL Normal 29.9-35.2 [facility] Comment on above: Performed By: #### C BC #### [facility] [address] [place] [address] Dr. William García MCV (RBC) [Entitic vol] 91.8 fL Normal 81.0-99.0 [facility] Comment on above: Performed By: #### C BC #### [facility] [address] [place] [address] Dr. William García MONO # 0.5 103/ul Normal 0.3-0.8 [facility] Comment on above: Performed By: #### C BC #### [facility] [address] [place] [address] Dr. William García Monocytes/100 WBC (Bld) 10.7 % Normal 1.7-12.0 [facility] Comment on above: Performed By: #### C BC #### [facility] [address] [place] [address] [address] William García NEUT # 3.5 103/ul Normal 1.4-6.5 [facility] Comment on above: Performed By: #### C BC #### [facility] [address] [address] [address] William García Neutrophils/100 WBC (Bld) 68.9 % Normal 43.0-75.0 [facility] Comment on above: Performed By: #### C BC #### [facility] [address] [place] [address] Dr. William García Platelet mean volume (Bld) [Entitic vol] 10.3 fL Normal 9.5-13.5 [facility] Comment on above: Performed By: #### C BC #### [facility] [address] [place] [address] Dr. William García PLT 189 103/ul Normal 150-450 [facility] Comment on above: Performed By: #### C BC #### [facility] [address] [place] [address] Dr. William García RBC 4.27 106/ul Normal 4.20-5.40 [facility] Comment on above: Performed By: #### C BC #### [facility] [address] [place] [address] Dr. William García WBC 5.1 103/ul Normal 4.0-11.0 [facility] Comment on above: Performed By: #### C BC #### [facility] [address] [place] [address] Dr. William García FREE T3on 10-18-2021 FREE T3 2.63 pg/mlL Normal 2.18-3.98 [facility] Comment on above: Performed By: #### F T3, TSH, AST, LIPID, ALT, BMP ####[facility] [address] [place] [address]Dr. William García FREE T4on 10-18-2021 Free T4 [Mass/Vol] 1.42 ng/dL Normal 0.76-1.46 [facility] Comment on above: Performed By: #### F T4, VITAD #### [facility] [address] [address] [address] William García GLYCOHEMOGLOBIN A1Con 2021 ADA RECOMMENDATION SEE BELOW Normal [facility] Comment on above: Result Comment: ADA RECOMMENDED LIMIT 4.0 - 6.0 ADA THERAPEUTIC TARGET < 7.0 ACTION SUGGESTED > 7.0 Performed By: #### A 1C #### [facility] [address] [place] [address] [address] William García Glucose [Mass/Vol] 105 mg/dL Normal [facility] Comment on above: Performed By: #### A 1C #### [facility] [address] [place] [address] [address] William García HbA1c (Bld) [Mass fraction] 5.3 % Normal 4.5-6.2 [facility] Comment on above: Performed By: #### A 1C #### [facility] [address] [place] [address] [address] William García LIPID PROFILEon 10-18-2021 CHOL-HDL RATIO NORM SEE BELOW Normal [facility] Comment on above: Result Comment: 3.3 - 4.4 LOW RISK 4.4 - 7.1 AVERAGE RISK 7.1 - 11.0 MODERATE RISK >11.0 HIGH RISK Performed By: #### F T3, TSH, AST, LIPID, ALT, BMP ####[facility] [address] [place] [id number]. William García Cholesterol [Mass/Vol] 222 mg/dL Critically high <=200 [facility] Comment on above: Performed By: #### F T3, TSH, AST, LIPID, ALT, BMP ####[facility] [address] [place] [id number]. William García Cholesterol in HDL [Mass/Vol] 76 mg/dL Critically high 40-60 [facility] Comment on above: Performed By: #### F T3, TSH, AST, LIPID, ALT, BMP ####[facility] [address] [place] [id number]. William García Cholesterol in LDL [Mass/Vol] 136.4 mg/dL Normal [facility] Comment on above: Performed By: #### F T3, TSH, AST, LIPID, ALT, BMP ####[facility] [address] [place] [id number]. William García Cholesterol.total/ Cholesterol in HDL [Mass ratio] 2.9 {ratio} Normal [facility] Comment on above: Performed By: #### F T3, TSH, AST, LIPID, ALT, BMP ####[facility] [address] [place] [address]Dr. William García HDL NORMAL > or = 60 mg/dl - LO W CARDIOVASCULAR RISK <40 mg/dl - HIGH CARDIOVASCULAR RISK Normal [facility] Comment on above: Performed By: #### F T3, TSH, AST, LIPID, ALT, BMP ####[facility] [address] [place] [address]Dr. William García LDL CALC NORMAL SEE BELOW Normal [facility] Comment on above: Result Comment: <100 mg/dl OPTIMAL 100 - 129 mg/dl NEAR OR ABOVE OPTIMAL 130 - 159 mg/dl BORDERLINE HIGH 160 - 189 mg/dl HIGH >190 mg/dl VERY HIGH Performed By: #### F T3, TSH, AST, LIPID, ALT, BMP ####[facility] [address] [place] [id number]. William García Triglyceride [Mass/Vol] 48 mg/dL Normal <=150 [facility] Comment on above: Performed By: #### F T3, TSH, AST, LIPID, ALT, BMP ####[facility] [address] [place] [id number]. William García VLDL CALC 9.6 mg/dL Normal [facility] Comment on above: Performed By: #### F T3, TSH, AST, LIPID, ALT, BMP ####[facility] [address] [place] [address]Dr. William García PROF CHEM 8 (BAS METB)on Anion gap [Moles/Vol] 11.6 mmol/L Normal [facility] Comment on above: Performed By: #### F T3, TSH, AST, LIPID, ALT, BMP ####[facility] [address] [place] [address]Dr. William García Calcium [Mass/Vol] 9.0 mg/dL Normal 8.5-10.1 [facility] Comment on above: Performed By: #### F T3, TSH, AST, LIPID, ALT, BMP ####[facility] [address] [place], [place] [address]Dr. William García Chloride [Moles/Vol] 106 mmol/L Normal 98-107 [facility] Comment on above: Performed By: #### F T3, TSH, AST, LIPID, ALT, BMP ####[facility] [address] [place], [place] [address]Dr. William García CO2 [Moles/Vol] 28.4 mmol/L Normal 21.0-32.0 [facility] Comment on above: Performed By: #### F T3, TSH, AST, LIPID, ALT, BMP ####[facility] [address] [place], [place] [address]Dr. William García Creatinine [Mass/Vol] 0.64 mg/dL Normal 0.55-1.02 [facility] Comment on above: Performed By: #### F T3, TSH, AST, LIPID, ALT, BMP ####[facility] [address] [place], [place] [address]Dr. William García EGFR-AF UGANDAN >60 Normal >=60 [facility] Comment on above: Performed By: #### F T3, TSH, AST, LIPID, ALT, BMP ####[facility] [address] [place], [place] [address]Dr. William García EGFR-NON AF UGANDAN >60 Normal >=60 [facility] Comment on above: Performed By: #### F T3, TSH, AST, LIPID, ALT, BMP ####[facility] [address] [place], [place] [address]Dr. William García Glucose [Mass/Vol] 87 mg/dL Normal 74-106 [facility] Comment on above: Performed By: #### F T3, TSH, AST, LIPID, ALT, BMP ####[facility] [address] [place] [address]Dr. William García Potassium [Moles/Vol] 4.0 mmol/L Normal 3.5-5.1 [facility] Comment on above: Performed By: #### F T3, TSH, AST, LIPID, ALT, BMP ####[facility] [address] [place] [address]Dr. William García Sodium [Moles/Vol] 142 mmol/L Normal 136-145 [facility] Comment on above: Performed By: #### F T3, TSH, AST, LIPID, ALT, BMP ####[facility] [address] [place] [address]Dr. William García Urea nitrogen [Mass/Vol] 14.0 mg/dL Normal 7.0-18.0 [facility] Comment on above: Performed By: #### F T3, TSH, AST, LIPID, ALT, BMP ####[facility] [address] [place] [address]Dr. William García Urea nitrogen/Creatinin e [Mass ratio] 21.9 mg/mg Normal [facility] Comment on above: Performed By: #### F T3, TSH, AST, LIPID, ALT, BMP ####[facility] [address] [place] [address]Dr. William García SGOTon 10-18-2021 AST [Catalytic activity/Vol] 18 U/L Normal 15-37 [facility] Comment on above: Performed By: #### F T3, TSH, AST, LIPID, ALT, BMP #### [facility] [address] [place] [address] [address] William Guerrero 10-18-2021 ALT [Catalytic activity/Vol] 24 U/L Normal 14-59 [facility] Comment on above: Performed By: #### F T3, TSH, AST, LIPID, ALT, BMP ####[facility] [address] [place] [address]Dr. William García TSHon 10-18-2021 TSH 0.729 uIU/mL Normal 0.358-3.740 [facility] Comment on above: Performed By: #### F T3, TSH, AST, LIPID, ALT, BMP ####[facility] [address] [place], [place] [address]Dr. William García TSH RANGE SEE BELOW Normal [facility] Comment on above: Result Comment: <0.3 4 UIU/ml HYPERTHYROID 0.34-5.60 UIU/ml EUTHYROID >5.60 UIU/ml HYPOTHYROID Performed By: #### F T3, TSH, AST, LIPID, ALT, BMP ####[facility] [address] [place], [place] [address]Dr. William García VITAMIN D 25 OHon 10-18-2021 VIT D 25-OH 25.2 ng/mL Normal [facility] Comment on above: Performed By: #### F T4, VITAD #### [facility] [address] [address] [address] William García VIT D RANGES SEE BELOW Normal [facility] Comment on above: Result Comment: <20 ng/mL Vit D deficient 20 - <30 ng/mL Vit D insufficient 30 - 100 ng/mL Vit D sufficient >100 ng/mL Potential Toxicity Performed By: #### F T4, VITAD #### [facility] [address] [place] [address] Dr. William García FREE T3 [facility] 06-01-2021 Triiodothyronine (T3) Free 2.5 pg/mL Normal 2.0-4.4 [facility] Comment on above: Performed By: #### F T3LC #### [facility] [address] [place] [address] Dr. William García VIT D 25-OH [facility] 2021 Vitamin D, 25-Hydroxy 23.2 ng/mL Critically low 30.0-100.0 [facility] Comment on above: Result Comment: Melissa min D deficiency has been defined by the [place] of [employer] and an Endocrine Society practice guideline as a level of serum 25-OH vitamin D less than 20 ng/mL (1,2). The Endocrine Society went on to further define vitamin D insufficiency as a level between 21 and 29 ng/mL (2). 1. IOM ([place] of [employer]). 2010. Dietary reference intakes for calcium and D. [place]: The National Academies Press. 2. Ashley MF, Nicole AYALA, Mac ALMEIDA, et al. Evaluation, treatment, and prevention of vitamin D deficiency: an Endocrine Society clinical practice guideline. JCEM. 2010; 96(7):1911-30. Performed By: #### V ITADLC #### [facility] [address] [place] [address] Dr. William García FREE T4on 05-31-2021 Free T4 [Mass/Vol] 0.96 ng/dL Normal 0.78-2.19 [facility] Comment on above: Performed By: #### F T4 #### [facility] [address] [place] [address] Dr. William García TSHon 05-31-2021 TSH 9.014 uIU/mL Critically high 0.470-4.680 [facility] Comment on above: Performed By: #### T SH #### [facility] [address] [place] [address] Dr. William García TSH RANGE SEE BELOW Normal [facility] Comment on above: Result Comment: <0.3 4 UIU/ml HYPERTHYROID 0.34-5.60 UIU/ml EUTHYROID >5.60 UIU/ml HYPOTHYROID Performed By: #### T SH #### [facility] [address] [place] [address] Dr. William García Vital Signs Date Time Vital Sign Value Performing Clinician Facility 07-10-2023 14:08-0500 Blood Pressure Location [employer] [facility] 07-10-2023 14:08-0500 Diastolic blood pressure 70 mm[Hg] Jose M DE LA CRUZL [facility] 07-10-2023 14:08-0500 Heart rate 74 /min Jose M [employer] [facility] 07-10-2023 14:08-0500 Respiratory rate 16 /min Jose M SANTO [facility] [place] 07-10-2023 14:08-0500 Systolic blood pressure 114 mm[Hg] Jose M SANTO General Surgery [place] 06-27-2023 09:43-0500 Body height 167.6 cm Fay Naida INVISIBLE BRACES ORTHODONTIST Work Phone: [facility] 06-27-2023 09:43-0500 Body mass index (BMI) [Ratio] 21.89 kg/m2 Fay Federicaz INVISIBLE BRACES ORTHODONTIST Work Phone: [facility] 06-27-2023 09:43-0500 Body temperature 97.11 [degF] Fay Federicaz INVISIBLE BRACES ORTHODONTIST Work Phone: [facility] 06-27-2023 09:43-0500 Body weight 61.51 kg Fya Federicaz INVISIBLE BRACES ORTHODONTIST Work Phone: [facility] 06-27-2023 09:43-0500 Diastolic blood pressure 62 mm[Hg] Fay Federicaz INVISIBLE BRACES ORTHODONTIST Work Phone: [facility] 06-27-2023 09:43-0500 Heart rate 67 /min Fay Federicaz INVISIBLE BRACES ORTHODONTIST Work Phone: [facility] 06-27-2023 09:43-0500 Respiratory rate 18 /min Fay Federicaz INVISIBLE BRACES ORTHODONTIST Work Phone: [facility] 06-27-2023 09:43-0500 SaO2% (BldA) [Mass fraction] 97 % Fay Federicaz INVISIBLE BRACES ORTHODONTIST Work Phone: [facility] 06-27-2023 09:43-0500 Systolic blood pressure 98 mm[Hg] Fay Aichholz INVISIBLE BRACES ORTHODONTIST Work Phone: [facility] 07-30-2022 09:36-0400 Body height 167.6 cm Amanda Christine PA-C Work Phone: [facility] 07-30-2022 09:36-0400 Body temperature 97.81 [degF] Amanda Sankovic PA-C Work Phone: [facility] 07-30-2022 09:36-0400 Body weight 65.77 kg Amanda Sankovic PA-C Work Phone: [facility] 07-30-2022 09:36-0400 Diastolic blood pressure 59 mm[Hg] Amanda Sankovic PA-C Work Phone: [facility] 07-30-2022 09:36-0400 Heart rate 65 /min Amanda Sankovic PA-C Work Phone: [facility] 07-30-2022 09:36-0400 SaO2% (BldA) [Mass fraction] 98 % Amanda Sankovic PA-C Work Phone: [facility] 07-30-2022 09:36-0400 Systolic blood pressure 109 mm[Hg] Amanda Abdirahmankovic PA-C Work Phone: [facility] 10-10-2021 10:30-0400 Body height 167.64 cm Panda Santos Other [facility] Other 10-10-2021 10:30-0400 Body mass index (BMI) [Ratio] 22.27 kg/m2 Panda Santos Other [facility] Other 10-10-2021 10:30-0400 Body temperature 96.4 [degF] Panda Santos Other [facility] Other 10-10-2021 10:30-0400 Body weight 62.6 kg Panda Santos Other [facility] Other 10-10-2021 10:30-0400 Diastolic blood pressure 68 mm[Hg] Panda Santos Other [facility] Other 10-10-2021 10:30-0400 SaO2% (BldA) [Mass fraction] 99 % Panda Santos Other [facility] Other 10-10-2021 10:30-0400 Systolic blood pressure 103 mm[Hg] Panda Santos [facility] Other 07-18-2021 16:00-0500 Body height 167.64 cm Panda Hicks Other [facility] Other 07-18-2021 16:00-0500 Body mass index (BMI) [Ratio] 22.92 kg/m2 Panda Hicks Other [facility] Other 07-18-2021 16:00-0500 Body weight 64.41 kg Panda Hicks Other [facility] Other 07-18-2021 16:00-0500 Diastolic blood pressure 67 mm[Hg] Panda Hicks Other [facility] Other 07-18-2021 16:00-0500 Systolic blood pressure 119 mm[Hg] Panda Hicks Other [facility] Other 06-15-2021 11:00-0500 Body height 167.64 cm Panda Hicks Other [facility] Other 06-15-2021 11:00-0500 Body mass index (BMI) [Ratio] 22.43 kg/m2 Panda Hicsk Other [facility] Other 06-15-2021 11:00-0500 Body weight 63.05 kg Panda Fabiola Other [facility] Other 02-23-2021 16:30-0400 Body height 167.64 cm Kelsey Pop Other [facility] Other 02-23-2021 16:30-0400 Body mass index (BMI) [Ratio] 22.59 kg/m2 Kelsey Pop Other [facility] Other 02-23-2021 16:30-0400 Body weight 63.5 kg Kelsey Pop Other [facility] Other Encounters Encounter Date Encounter Type Care Provider Facility Start: 07-18-2023 End: 07-18-2023 ambulatory Fay Pascal Facility:[facility] Start: 07-10-2023 End: 07-11-2023 ambulatory Jose M SANTO Facility:[facility] Start: 07-10-2023 End: 07-10-2023 Patient encounter procedure Jose M SANTO General Surgery [facility] [place] Start: 06-27-2023 ambulatory Jose M SANTO Facility: [facility] Start: 06-27-2023 Bamboo flowsheet Fay Pascal INVISIBLE BRACES ORTHODONTIST Work Phone: [facility] Start: 06-27-2023 Bamboo flowsheet Fay Pascal INVISIBLE BRACES ORTHODONTIST Work Phone: [facility] Start: 06-27-2023 Clinisync Result Encounter Fay Pascal [employer]VISIBLE BRACES ORTHODONTIST Work Phone: [facility] Unsolicited Start: 06-27-2023 End: 06-27-2023 ambulatory FAY PASCAL Not Available Start: 06-27-2023 End: 06-27-2023 Office outpatient visit 25 minutes Fay Pascal [employer]VISIBLE [employer]ACES ORTHODONTIST Work Phone: [facility] Comment on above: Rectal bleeding (Geraldine yesica Dx); Hypothyroidism, adult (CMS/HCC); Vitamin D deficiency; BMI 21.0-21.9, adult; Heart murmur Start: 07-30-2022 End: 07-30-2022 ambulatory AAMNDA CHRISTINE Facility:[facility] Start: 07-30-2022 End: 07-30-2022 Patient encounter procedure Amanda Christine PA-C Work Phone: Colorectal Surgery Comment on above: Rectal discharge (Pr imary Dx) Start: 05-09-2022 End: 05-10-[address] PHOENIX GARNER Facility:[facility] Start: 10-18-2021 End: 10-19-[address] 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 Facility:[facility] Start: 10-10-2021 End: 10-10-2021 ambulatory Panda Santos [facility] Other Start: 10-10-2021 Office outpatient visit 40 minutes Panda Santos [facility] Start: 07-18-2021 End: 07-18-2021 ambulatory Panda Hicks Other [facility] Other Start: 07-18-2021 Office outpatient visit 15 minutes Panda Hicks [facility] Start: 06-20-2021 End: 06-20-2021 ambulatory Panda Hicks Other [facility] Other Start: 06-20-2021 Telephone encounter Panda Hicks [facility] Start: 06-15-2021 End: 06-15-2021 ambulatory Panda Hicks Other [facility] Other Start: 06-15-2021 Office outpatient visit 25 minutes Panda Hicks [facility] Start: 05-31-2021 End: 06-01-[address] PHOENIX GARNER Facility:[facility] Start: 05-02-2021 End: 05-02-2021 ambulatory Panda Hicks Other [facility] Other Start: 05-02-2021 Telephone encounter Panda Hicks [facility] Start: 05-01-2021 End: 05-01-2021 ambulatory Panda Hicks Other [facility] Other Start: 05-01-2021 Telephone encounter Panda Hicks [facility] Start: 04-10-2021 End: 04-10-2021 ambulatory Panda Hicks Other [facility] Other Start: 04-10-2021 Telephone encounter Panda Hicks [facility] Start: 03-20-2021 Telephone encounter Panda Hicks [facility] Start: 02-23-2021 Office outpatient visit 15 minutes Kelsey Pop [facility] Procedures Date Procedure Procedure Detail Performing Clinician Start: 06-27-2023 ALL CBC WITH AUTO DIFF Fay Pascal INVISIBLE BRACES ORTHODONTIST Work Phone: Start: 05-10-2023 Mammography Fay man INVISIBLE BRACES ORTHODONTIST Work Phone: Start: 04-03-2021 Colonoscopy Fay man INVISIBLE BRACES ORTHODONTIST Work Phone: Start: 04-03-2021 Colonoscopy Jose M [...] Screening for malign ant neoplasm of colon [facility] Start: 05-10-2024 Screening for malign ant neoplasm of breast Mammogram [facility] Start: 01-04-2024 Medicare Annual Well ness (AWV) Medicare Annual Wellness (AWV) [facility] Start: 07-31-2023 End: 07-31-2023 Patient encounter procedure 07/31/2023 9:20 AM EDT Office Visit [facility] [address] [place] [address] Fay Pascal, INVISIBLE BR[employer]ES ORTHODONTIST [address] [place] [address] [facility] Start: 06-27-2023 End: 06-27-2024 25-hydroxyvitamin D3 [Mass/volume] in Serum or Plasma Vitamin D 25 hydroxy Lab Routine Vitamin D deficiency Expected: 06/27/2023 (Approximate), Expires: 06/27/2024 [facility] Work Phone: Comment on above: Expected: 06/27/2023 (Approximate), Expires: 06/27/2024 Start: 06-27-2023 End: 06-27-2024 CBC W Auto Differential panel - Blood CBC and differential Lab Routine Rectal bleeding Expected: 06/27/2023 (Approximate), Expires: 06/27/2024 [facility] Comment on above: Expected: 06/27/2023 (Approximate), Expires: 06/27/2024 Start: 06-27-2023 End: 06-27-2024 Comprehensive metabolic 2000 panel - Serum or Plasma Comprehensive metabolic panel Lab Routine Hypothyroidism, adult (CMS/HCC) Vitamin D deficiency Rectal bleeding Expected: 06/27/2023 (Approximate), Expires: 06/27/2024 [facility] Comment on above: Expected: 06/27/2023 (Approximate), Expires: 06/27/2024 Start: 06-27-2023 End: 06-27-2024 Erythrocyte sedimentation rate Sedimentation rate, automated Lab Routine Rectal bleeding Expected: 06/27/2023 (Approximate), Expires: 06/27/2024 [facility] Comment on above: Expected: 06/27/2023 (Approximate), Expires: 06/27/2024 Start: 06-27-2023 End: 06-27-2024 Ferritin [Mass/volume] in Serum or Plasma Ferritin Lab Routine Rectal bleeding Expected: 06/27/2023 (Approximate), Expires: 06/27/2024 [facility] Comment on above: Expected: 06/27/2023 (Approximate), Expires: 06/27/2024 Start: 06-27-2023 End: 06-27-2024 Iron and Iron binding capacity panel - Serum or Plasma Iron level Lab Routine Rectal bleeding Expected: 06/27/2023 (Approximate), Expires: 06/27/2024 [facility] Comment on above: Expected: 06/27/2023 (Approximate), Expires: 06/27/2024 Start: 06-27-2023 End: 06-27-2024 Thyrotropin [Units/volume] in Serum or Plasma TSH Lab Routine Hypothyroidism, adult ([facility]) Expected: 06/27/2023 (Approximate), Expires: 06/27/2024 [facility] Comment on above: Expected: 06/27/2023 (Approximate), Expires: 06/27/2024 Start: 06-27-2023 End: 06-27-2024 Thyroxine (T4) free [Mass/volume] in Serum or Plasma T4, free Lab Routine Hypothyroidism, adult ([facility]) Expected: 06/27/2023 (Approximate), Expires: 06/27/2024 [facility] Comment on above: Expected: 06/27/2023 (Approximate), Expires: 06/27/2024 Start: 06-27-2023 End: 06-27-2024 Triiodothyronine (T3) Free [Mass/volume] in Serum or Plasma T3, free Lab Routine Hypothyroidism, adult ([facility]) Expected: 06/27/2023 (Approximate), Expires: 06/27/2024 [facility] Comment on above: Expected: 06/27/2023 (Approximate), Expires: 06/27/2024 Start: 06-27-2023 End: 06-27-2023 Patient encounter procedure 06/27/2023 9:40 AM EST Office Visit [facility] [address] [place] [address] Fay Pascal NP [address] [place] [address] Hypothyroidism, adult (CMS/HCC) (Primary Dx); Vitamin D deficiency [facility] Comment on above: Hypothyroidism, adul t (CMS/HCC) (Primary Dx); Vitamin D deficiency Start: 01-18-2023 Influenza vaccination Influenza Vacc ine (#1) [facility] Start: 05-20-2022 ADVANCE DIRECTIVE DISCUSSION ADVANCE DIRECTIVE DISCUSSION [facility] Start: 05-20-2022 DEPRESSION ASSESSMENT DEPRESSION ASS ESSMENT [facility] Start: 01-18-2022 Influenza vaccination INFLUENZA (#1) [facility] Start: 2020 BONE DENSITY BONE DENSITY [facility] Start: 2020 PNEUMOCOCCAL: 65+ (1 - PCV) PNEUMOCOCCAL: 65+ (1 - PCV) [facility] Start: 2005 SHINGRIX VACCINE (1 of 2) HARTMANN GRIX VACCINE (1 of 2) [facility] Start: 2000 COLOGUARD (FIT-DNA) COLOGUARD (FIT-D NA) [facility] Start: 2000 Colonoscopy COLONOSCOPY [facility] Start: 2000 COLORECTAL CANCER SCREENING COLORECTAL CANCER SCREENING [facility] Start: [address] COLONOGRAPHY [facility] Start: 2000 DIABETES SCREEN DIABETES SCREEN [facility] Start: 2000 FECAL OCCULT BLOOD FECAL OCCULT BLOO D [facility] Start: 2000 LIPID SCREEN LIPID SCREEN [facility] Start: 2000 SIGMOIDOSCOPY SIGMOIDOSCOPY [facility] Start: 1995 Mammography MAMMOGRAM [facility] Start: 1974 Urine microalbumin profile DTAP,TDAP ,TD (1 - Tdap) [facility] Start: 1973 HEPATITIS C SCREENING HEPATITIS C SC REENING [facility] Start: 01-15-1956 COVID-19 VACCINE (#1) COVID-19 VACCI NE (#1) [facility] Start: 1955 Screening for malign ant neoplasm of colon [facility] Immunizations Immunization Date Immunization Notes Care Provider Fa cility 02-27-2022 Pneumococcal Conjuga te PCV 20 Fay Pascal INVISIBLE BRACES ORTHODONTIST Work Phone: [facility] 02-23-2021 Kenalog -40 mg Kelsey mckee Other [facility] Other 09-28-2020 Kenalog -40 mg Kelsey mckee [facility] Other 09-28-2020 Gel-One Kelsey dior Other [facility] Other 07-15-2014 pneumococcal conjuga te vaccine, 13 valent Fay Aichholz INVISIBLE BRACES ORTHODONTIST Work Phone: [facility] 08-18-2009 pneumococcal polysaccharide vaccine, 23 valent Fay Aichholz INVISIBLE BRACES ORTHODONTIST Work Phone: [facility] NEGATED: Highlighted row has not occurred!07-10-2023 influenza virus vaccine, unspecified formulation Jose M SANTO General Surgery [place] Payers Date Payer Category Payer Self-pay 2020 Medicare [id number] 2020 Private Health Insurance [employer] MEDICARE SUPPLEMENT [id number] 2020-Present [phone] [address] [address] [place] [address] Indemnity [id number] 1959 Medicare [id number] 1959 Private Health Insurance CLI [id number] 1955 Unknown [id number] 1955 Unknown [id number] 1955 Unknown [id number] 1955 Unknown [id number] 1955 Unknown [id number] Unknown [id number] Social History Date Type Detail Facility Start: 06-26-2023 End: 06-27-2023 Sex Assigned At [facility] Start: 07-30-2022 End: 07-10-2023 Tobacco smoking status NHIS Never smoked tobacco [facility] Start: 07-30-2022 End: 06-25-2023 Tobacco use and exposure Smokeless tobacco non-user [facility] Start: 07-30-2022 End: 06-27-2023 Alcohol intake Ex-drinker (finding) [facility] Start: 1955 Sex Assigned At Not on file [facility] Start: 06-26-2023 End: 06-27-2023 History of Social function [facility] Within the last year , have you been afraid of your partner or ex-partner? No [facility] Attends [employer] Not on file [facility] [...] [facility] Clinical Notes 02-23-2021 to 07-10-2023 Fay Pascal NP - 06/27/2023 10:57 AM Murphy Pascal INVISIBLE BRACES ORTHODONTIST - 06/27/2023 10:51 AM Murphy Pascal, INVISIBLE BRACES ORTHODONTIST - 06/27/2023 10:50 AM Murphy Pascal, INVISIBLE BRACES ORTHODONTIST - 06/27/2023 9:40 AM ESTPatient Instructions Note Date & Type Note Facility 07-10-2023 Note Chief Complaint consultation for rectal bleeding HPI Staff 67yo year old [facility]. Reports several year history [...] 50,000 intl units (1.25 mg) oral capsule, 14258 International_Unit= 1 cap(s), Oral, qWeek Allergies No Known Allergies No Known Medication Allergies Social History Alcohol - Denies Alcohol Use, 07/10/2023 Substance Abuse - Denies Substance Abuse, 07/10/2023 Tobacco Never (less than 100 in lifetime) Tobacco Use:. Never Smokeless Tobacco Use:., 07/10/2023 Family History Liver cancer: Brother. Primary yeimi (more content not included)... [facility] Comment on above: Result Comment: Elec tronically Signed By: MERCY MARTINEZ, Jose M Pretty\Date and Time Signed: 07/10/23 16:43 EST 06-27-2023 [...] Basal cell carcinoma 06/27/2023 Childbirth x3 Dyslipidemia ([facility]) 06/27/2023 Gastroesophageal reflux disease 06/27/2023 Hypothyroidism, adult ([facility]) 06/27/2023 Lichenification and lichen simplex chronicus 06/27/2023 Osteoarthritis 06/27/2023 Osteoporosis, 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[facility]) 06/27/2023 Prediabetes 06/27/2023 Primary osteoarthritis of [...] medication and cologuard documented in this encounter [facility] 07-30-2022 Instructions Amanda Christine PA-C - 07/30/2022 [...] if no improvement documented in this encounter [facility] 07-30-2022 History and physical note COLORECTAL [...] scan,MRI and colonoscopy ( brought to front desk receptionist to be scanned in) were completed and [...] was otherwise normal. Patient tolerated procedure well. Revenue Enforcement Collection Agent present: Yes, Kristin Fuentes MA Diagnostic tests reviewed for today's visit: Colonoscopy Report CT imaging MRI imaging All outside imaging and records were reviewed with the patient during consultation. Assessment Assessment and Plan: Alesha Bonilla is a 67 year old female who comes to [facility] for rectal mucous/ discharge. Upon obtaining the patients history the discharge is mucous like with an odor to it. She has a history of hemorrhoids in the past but did not go through with a hemorrhoidectomy. A complete history of her bowels currently is seen in the [facility]. An exam was completed in which her [...] which included preparing to see the patient, [id number] patient care, completing clinical documentation, obtaining and/or reviewing separately obtained history, performing a medically appropriate examination, counseling and educating the patient/family/caregiver, and ordering medications, tests, or procedures. documented in this encounter [facility] 10-10-2021 Evaluation note Encounter Date Diagnosis [...] Other 1 hour and 10 minutes spent [id number] with the patient, the majority in counseling and education [facility] Other 03-01-2022 Evaluation note* Encounter Date Diagnosis Assessment Notes Treatment Notes Treatment Clinical Notes Jul, Irritable bowel syndrome with diarrhea (ICD-10 - K58.0) Jul, GERD (gastroesophageal reflux disease) (ICD-10 - K21.9) Jul, Liver hemangioma (ICD-10 - D18.03) Jul, Other REASSURANCE REPEAT RUQ U/S IN 4-6 MONTHS (IN RECALL) [facility] Other 02-01-2022 Evaluation note* Encounter Date Diagnosis Assessment Notes Treatment Notes Treatment Clinical Notes Jun, Liver lesion (ICD-10 - K76.9) [facility] Other 01-27-2022 Evaluation note* Encounter Date Diagnosis [...] without obstruction or gangrene (ICD-10 - K43.9) [facility] Other 11-22-2021 Evaluation note* Encounter Date Diagnosis Assessment Notes Treatment Notes Treatment Clinical Notes Mar, Diarrhea (ICD-10 - R19.7) Mar, Weight loss (ICD-10 - R63.4) [facility] Other 11-01-2021 Evaluation note* Encounter Date Diagnosis Assessment Notes Treatment Notes Treatment Clinical Notes Mar, Abdominal cramping (ICD-10 - R10.9) Mar, Diarrhea (ICD-10 - R19.7) [facility] Other 10-07-2021 Evaluation note* Encounter Date Diagnosis [...] Feb, Left hip pain (ICD-10 - M25.552) [facility] Other Evaluation + Plan note No data available for this section General Surgery [place] Evaluation noteNo InformationNort [place] Other Evaluation note* Diagnosis Rectal discharge- Primary Other symptoms involving digestive system [facility] Rectal bleeding- Primary Hemorrhage of rectum and anus Hypothyroidism, adult (CMS/HCC) Other specified acquired hypothyroidism Vitamin D deficiency BMI 21.0-21.9, adult Heart murmur Undiagnosed cardiac murmurs documented [facility] - [facility]orted* Type Description Date Medical History high cholesterol Medical History Hypothyroidism Surgical History meniscus repair Surgical History rotator cuff repair Surgical History lipoma removed from right shoul neela Surgical History skin cancer removal from lip Hospitalization History see above [facility] Other History general Narrative - Reported* Type Description Date Medical History high cholesterol Medical History Hypothyroidism Medical History obstructive sleep apnea Surgical History meniscus repair Surgical History rotator cuff repair Surgical History lipoma removed from right shoul neela Surgical History skin cancer removal from lip Hospitalization History see above [facility] Other Hospital Discharge instructions No data available for this section General Surgery [place] Progress note No data available for this section General Surgery [place] Reason for referral (narrative)* Consultation (Routine) - Pending Review Specialty Diagnoses / Procedures Referred By Seb díaz Referred To Contact General Surgery Diagnoses Rectal bleeding Procedures RI OFFICE/OUTPATIENT NEW HIGH MDM 60 MINUTES Fay Pascal NP [address] [place] [address] Jose M Santo MD [address] [facility] [address], [address] [place] [address] Referral ID Status Reason Start Date Expiration Date Visits Requested Visits Authorized [id number] Pending Review Specialty Services Required 06/27/2023 12/24/2023 1 1 [facility] Summary Purpose Family History No Family [...] and content) DATE CREATED AUTHOR 05/17/2022 [facility] DATE CREATED AUTHOR AUTHOR'S ORGANIZ ATION 07/31/2022 [facility] DATE CREATED AUTHOR AUTHOR'S ORGANIZ ATION 06/28/2023 [facility] DATE CREATED AUTHOR AUTHOR'S ORGANIZ ATION 07/21/2023 Harley Lomax [facility] DATE CREATED AUTHOR AUTHOR'S ORGANIZ ATION 07/27/2023 [facility] Source Comments (unrecognize d section and content) In the event this informatio n is protected by the Federal Confidentiality of Alcohol and Drug Abuse Patient Records regulations: The Federal rules restrict any use of the information to criminally investigate or prosecute any alcohol or drug abuse patient.[facility] Care Teams (unrecognized sec tion and content) Interventional Radiology Rn Relationship Specialty Start Date End Date Phoenix Garner [address] [place], [place] [id number] PCP - General Family Medicine 07/26/22 Interventional Radiology Rn Relationship Specialty Start Date End Date Phoenix Garner MD [address] [place] [address] PCP - General Family Medicine 06/18/23 Interventional Radiology Rn Relationship Specialty Start Date End Date Phoenix Garner MD [address] [place] [address] PCP - General Family Medicine 06/18/23 Interventional Radiology Rn Relationship Specialty Start Date End Date Phoenix Garner MD [address] [place] [address] PCP - General Family Medicine 06/18/23 FOR [...] BE BASED ON THE PRIMARY CLINICAL RECORDS. [facility] [email or web address] provides no warranty or guarantee of the accuracy or completeness of information in this document.
[2023-07-31] MEDS: LACTATED RINGER'S SOLUTION 1,000 ML 50 ML IV (07:44)
[2023-07-31 10:19] VITALS: BP 99/56; PULSE 57; RESP 16; O2SAT 98
[2023-07-31 10:35] VITALS: BP 98/51; PULSE 55; RESP 16; O2SAT 97
== END 2023-07-31 10:52 | disposition home or self-care (01) ==
PROVIDERS: PCP Nurse Practitioner; Visit Provider Surgery
PROC: (CPT 45378; principal; 2023-07-31 08:55)
DX: K62.5 Hemorrhage of anus and rectum (principal); K57.30 Diverticulosis of large intestine without perforation or abscess without bleeding; Q43.8 Other specified congenital malformations of intestine; K64.4 Residual hemorrhoidal skin tags; E78.5 Hyperlipidemia, unspecified; Z86.010 Personal history of colon polyps; E03.9 Hypothyroidism, unspecified; K58.0 Irritable bowel syndrome with diarrhea; G47.33 Obstructive sleep apnea (adult) (pediatric); M81.0 Age-related osteoporosis without current pathological fracture; R73.03 Prediabetes; E55.9 Vitamin D deficiency, unspecified; Z98.51 Tubal ligation status
CPT/HCPCS: 45378; J2704

== ENCOUNTER 2023-11-17 13:41 | Emergency (ER) | payer MEDICARE, SELFPAY ==
[2023-11-17 13:45] VITALS: BP 110/68; PULSE 68; TEMP 37; O2SAT 96; BMI 22.6
--- OUTSIDE RECORDS SUMMARY | 2023-11-17 13:48 | XMS_ITS | CCD ---
Author Organization [facility] Care Team Providers Care Human Resources Professional Name Role Phone Kelsey Pop Unavailable Panda Hicsk Unavailable Panda Santos Unavailable PASCUAL, DR PHOENIX Montaño Primary Care Unavailable PIEROEBANTHONY, DR BHAVIN Licon[employer] Unavailable NADERER, DR [...] Unavailable PASCUAL, PHOENIX Montaño Primary Care Unavailable FAY PASCAL Attending Unavailable Phoenix Garner MD Primary Care Provider FAY PASCAL Primary Care Physician Fay Pascal Attending Unavailable Fay Pascal Admitting Unavailable Phoenix Garner Primary Care Unavailable Jose M SANTO Attending Unavailable FAY PASCAL Referring Unavailable Jose M SANTO Attending Unavailable Allergies Allergy Classification Reported Allergen(s) Allergy Type Date of Onset Reaction(s) Facility (1 source) No Known Medication Allergies; Translations: [No Known Medication Allergies] Propensity to adverse reactions (disorder) [facility] Repository Medications Current Medications Medication Drug Class(es) [...] every week ergocalciferol (Vitamin D-2) 1.25 MG (68190 UT) capsule Take 1.25 mg by mouth [...] 4 Chronic Other aftercare (1 source) Other fdc (current) drug therapy; Translations: [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 Normal [facility] Transfer Inon 07-19-2023 Transfer In [id number]#[id number] Normal [facility] Blood Urea Nitrogenon 2023 Urea nitrogen [Mass/Vol] 16 mg/dL Normal 7 [facility] Comment on above: Order Comment: STAT FOR CT Performed By: #### B DEBBIE, CREVANESSA #### [address] abdomen pelvis w conon CT abdomen pelvis w con [facility] Main [place] [address] [place] [address] CT Scan Report Signed Patient: Alesha Bonilla MR#: [id number] 57 : 1955 Acct:[id number] Age/Sex: 68 / F ADM Date: 07/18/23 Loc: CT Room: Type: [facility] Attending Dr: Fay Pascal Copies to: [...] Cox Jr., D.O.07/18/2023 11:49 AM Dictation Location: [place] [address] Transcribed By: [facility] 07/18/23 1149 Dictated By: Jose Miguel Cox Jr, DO 07/18/23 1144 Signed By: 07/18/23 1149 Normal [facility] Creatinineon 07-18-2023 Creatinine [Mass/Vol] 0.82 mg/dL Normal 0.60-1.20 [facility] Comment on above: Order Comment: STAT FOR CT Performed By: #### B UN, CREAT #### [address] GFR/1.73 sq M.predicted MDRD (S/P/Bld) [Vol rate/Area] mL/min/{1.73_m2} Normal [facility] Comment on above: Order Comment: STAT FOR CT Result Comment: PERF ORMED BY: [address]rit[address] [place] [id number] PATHOLOGIST RADON INSPECTOR DON BOSTON M.D. Performed By: #### B UN, CREAT #### [place] [id number] [facility] Facesheeton 07-11-2023 Facesheet [id number]#[id number] Normal [facility] Ambulatory Visit Summaryon 0 07-10-2023 Ambulatory Visit Summary TAMMYALESHA BRODY Sabra :1955 Visit Date:07/10/2023 Ambulatory Visit Instructions Your [...] for choosing us for your care. Normal [facility] Physician Referralon 024 Physician Referral [id number]#[id number] Normal [facility] ALL CBC WITH AUTO DIFFon BASOPHILS ABSOLUTE AUTO 0.0 [facility] Basophils/100 WBC (Bld) 0.8 % 0.2 - 2.0 % [facility] Eosinophils/100 WBC (Bld) 1.2 % 0.9 - 7.0 % [facility] Erythrocyte distribution width (RBC) [Ratio] 12.5 % 11.0 - 15.0 % [facility] Hematocrit (Bld) [Volume fraction] 39.2 % 36.0 - 48.0 % [facility] Hemoglobin (Bld) [Mass/Vol] 12.9 g/dL 12.0 - 16.0 g/dL [facility] IMMATURE GRANULOCYTES ABS AUTO 0.01 [facility] Immature granulocytes/100 WBC (Bld) 0.2 % 0.0 - 0.5 % [facility] Interpretation and review of laboratory results Abnormal [facility] LYMPHOCYTES ABSOLUTE AUTO 0.7 Low [facility] Lymphocytes/100 WBC (Bld) 14.3 % Low 20.5 - 60.0 % [facility] MCH (RBC) [Entitic mass] 29.9 pg 26.7 - 34.0 pg [facility] MCHC (RBC) [Mass/Vol] 32.9 g/dL 29.9 - 35.2 g/dL [facility] MCV (RBC) [Entitic vol] 90.7 fL 81.0 - 99.0 [facility]L [facility] ABSOLUTE [facility] 0.5 [facility] Monocytes/100 WBC (Bld) 9.4 % 1.7 - 12.0 % [facility] NEUTROPHILS ABSOLUTE AUTO 3.9 [facility] Neutrophils/100 WBC (Bld) 74.1 % 43.0 - 75.0 % [facility] Platelet mean volume (Bld) [Entitic vol] 10.2 fL 9.5 - 13.5 fL [facility] TBH EO # 0.1 [facility] TB PLT 181 [facility] RBC 4.32 [facility] WBC 5.2 [facility] CNOVon 07-30-2022 CNOV Office Visit ([facility] ) ALESHA BONILLA ([id number]) 1955 F Date Time Provider Department 07/30/22 [...] scan,MRI and colonoscopy ( brought to front office director to be scanned in) were completed and [...] liver disea (more content not included)... Normal [facility] HISTORY PHYSICALon HISTORY PHYSICAL HNO ID: [id number] Author: Amanda Christine PA-C Service: ? Author Type: Physician Deblocker Type: HANDP Filed: 07/30/2022 11:25 AM Note [...] scan,MRI and colonoscopy ( brought to front office director to be scanned in) were completed and [...] cord stimula (more content not included)... Normal [facility] MG MAMM SCREEN 3D NEETA CADon 05-09-2022 MG MAMM SCREEN 3D NEETA CAD Patient: ALESHA BONILLA Exam Date: 05/09/2022 : 1955 Gender:F Ordering : DR PHOENIX GARNER . Admission #: [id number] Family : Order #: [id number] CLICK HERE TO VIEW EXAM RADIOLOGY REPORT [...] lung cancer at age 74. LOCATION: [facility] BREAST COMPOSITION: Scattered areas fibroglandular density. FINDINGS: [...] M.D. on 05/09/2022 at 10:59 Normal [facility] CBC AUTO DIFFon 10-18-2021 BASO # 0.0 103/ul Normal 0.0-0.1 [facility] Comment on above: Performed By: #### C BC #### [facility] [address] [place] [address] Dr. William García Basophils/100 WBC (Bld) 0.8 % Normal 0.2-2.0 [facility] Comment on above: Performed By: #### C BC #### [facility] [address] [place] [address] Dr. William García EO # 0.1 103/ul Normal 0.0-0.7 [facility] Comment on above: Performed By: #### C BC #### [facility] [address] [place] [address] Dr. William García Eosinophils/100 WBC (Bld) 2.0 % Normal 0.9-7.0 [facility] Comment on above: Performed By: #### C BC #### [facility] [address] [place] [address] Dr. William García Erythrocyte distribution width (RBC) [Ratio] 12.7 % Normal 11.0-15.0 [facility] Comment on above: Performed By: #### C BC #### [facility] [address] [place] [address] Dr. William García Hematocrit (Bld) [Volume fraction] 39.2 % Normal 36.0-48.0 [facility] Comment on above: Performed By: #### C BC #### [facility] [address] [place] [address] Dr. William García Hemoglobin (Bld) [Mass/Vol] 12.8 g/dL Normal 12.0-16.0 [facility] Comment on above: Performed By: #### C BC #### [facility] [address] [place] [address] Dr. William García IG # 0.01 10e3/ul Normal 0.00-0.03 [facility] Comment on above: Performed By: #### C BC #### [facility] [address] [place] [address] Dr. William García IG % 0.2 % Normal 0.0-0.5 [facility] Comment on above: Performed By: #### C BC #### [facility] [address] [place] [address] Dr. William García LYMPH # 0.9 103/ul Critically low 1.2-3.8 [facility] Comment on above: Performed By: #### C BC #### [facility] [address] [place] [address] Dr. William García Lymphocytes/100 WBC (Bld) 17.4 % Critically low 20.5-60.0 [facility] Comment on above: Performed By: #### C BC #### [facility] [address] [place] [address] Dr. William García MANUAL DIFF REQ NO Normal [facility] Comment on above: Performed By: #### C BC #### [facility] [address] [place] [address] Dr. William García MCH (RBC) [Entitic mass] 30.0 pg Normal 26.7-34.0 [facility] Comment on above: Performed By: #### C BC #### [facility] [address] [place] [address] Dr. William García MCHC (RBC) [Mass/Vol] 32.7 g/dL Normal 29.9-35.2 [facility] Comment on above: Performed By: #### C BC #### [facility] [address] [place] [address] Dr. William García MCV (RBC) [Entitic vol] 91.8 fL Normal 81.0-99.0 [facility] Comment on above: Performed By: #### C BC #### [facility] [address] [place] [address] Dr. William García MONO # 0.5 103/ul Normal 0.3-0.8 [facility] Comment on above: Performed By: #### C BC #### [facility] [address] [place] [address] Dr. William García Monocytes/100 WBC (Bld) 10.7 % Normal 1.7-12.0 [facility] Comment on above: Performed By: #### C BC #### [facility] [address] [place] [address] Dr. William García NEUT # 3.5 103/ul Normal 1.4-6.5 [facility] Comment on above: Performed By: #### C BC #### [facility] [address] [place] [address] Dr. William García Neutrophils/100 WBC (Bld) 68.9 % Normal 43.0-75.0 [facility] Comment on above: Performed By: #### C BC #### [facility] [address] [place] [address] Dr. William García Platelet mean volume (Bld) [Entitic vol] 10.3 fL Normal 9.5-13.5 [facility] Comment on above: Performed By: #### C BC #### [facility] [address] [place] [address] Dr. William García PLT 189 103/ul Normal 150-450 [facility] Comment on above: Performed By: #### C BC #### [facility] [address] [place] [address] Dr. William García RBC 4.27 106/ul Normal 4.20-5.40 [facility] Comment on above: Performed By: #### C BC #### [facility] [address] [place] [address] Dr. William García WBC 5.1 103/ul Normal 4.0-11.0 [facility] Comment on above: Performed By: #### C BC #### [facility] [address] [place] [address] [address] William García FREE T3on 10-18-2021 FREE T3 2.63 pg/mlL Normal 2.18-3.98 [facility] Comment on above: Performed By: #### F T3, TSH, AST, LIPID, ALT, BMP ####[facility] [address] [place] [address]Dr. William García FREE T4on 10-18-2021 Free T4 [Mass/Vol] 1.42 ng/dL Normal 0.76-1.46 [facility] Comment on above: Performed By: #### F T4, VITAD #### [facility] [address] [place] [address] [address] William García GLYCOHEMOGLOBIN A1Con 2021 ADA RECOMMENDATION SEE BELOW Normal [facility] Comment on above: Result Comment: ADA RECOMMENDED LIMIT 4.0 - 6.0 ADA THERAPEUTIC TARGET < 7.0 ACTION SUGGESTED > 7.0 Performed By: #### A 1C #### [facility] [address] [place] [address] [address] William García Glucose [Mass/Vol] 105 mg/dL Normal [facility] Comment on above: Performed By: #### A 1C #### [facility] [address] [place] [address] [address] William García HbA1c (Bld) [Mass fraction] 5.3 % Normal 4.5-6.2 [facility] Comment on above: Performed By: #### A 1C #### [facility] [address] [place] [address] [address] William García LIPID PROFILEon 10-18-2021 CHOL-HDL RATIO NORM SEE BELOW Normal [facility] Comment on above: Result Comment: 3.3 - 4.4 LOW RISK 4.4 - 7.1 AVERAGE RISK 7.1 - 11.0 MODERATE RISK >11.0 HIGH RISK Performed By: #### F T3, TSH, AST, LIPID, ALT, BMP ####[facility] [address] [place] [id number]. William García Cholesterol [Mass/Vol] 222 mg/dL Critically high <=200 [facility] Comment on above: Performed By: #### F T3, TSH, AST, LIPID, ALT, BMP ####[facility] [address] [place] [id number]. William García Cholesterol in HDL [Mass/Vol] 76 mg/dL Critically high 40-60 [facility] Comment on above: Performed By: #### F T3, TSH, AST, LIPID, ALT, BMP ####[facility] [address] [place] [id number]. William García Cholesterol in LDL [Mass/Vol] 136.4 mg/dL Normal [facility] Comment on above: Performed By: #### F T3, TSH, AST, LIPID, ALT, BMP ####[facility] [address] [place], [place] [address]Dr. William García Cholesterol.total/ Cholesterol in HDL [Mass ratio] 2.9 {ratio} Normal [facility] Comment on above: Performed By: #### F T3, TSH, AST, LIPID, ALT, BMP ####[facility] [address] [place] [address]Dr. William García HDL NORMAL > or = 60 mg/dl - LO W CARDIOVASCULAR RISK <40 mg/dl - HIGH CARDIOVASCULAR RISK Normal [facility] Comment on above: Performed By: #### F T3, TSH, AST, LIPID, ALT, BMP ####[facility] [address] [place], [place] [address]Dr. William García LDL CALC NORMAL SEE BELOW Normal [facility] Comment on above: Result Comment: <100 mg/dl OPTIMAL 100 - 129 mg/dl NEAR OR ABOVE OPTIMAL 130 - 159 mg/dl BORDERLINE HIGH 160 - 189 mg/dl HIGH >190 mg/dl VERY HIGH Performed By: #### F T3, TSH, AST, LIPID, ALT, BMP ####[facility] [address] [place] [address]Dr. William García Triglyceride [Mass/Vol] 48 mg/dL Normal <=150 [facility] Comment on above: Performed By: #### F T3, TSH, AST, LIPID, ALT, BMP ####[facility] [address] [place] [address]Dr. William García VLDL CALC 9.6 mg/dL Normal [facility] Comment on above: Performed By: #### F T3, TSH, AST, LIPID, ALT, BMP ####[facility] [address] [place] [address]Dr. William García PROF CHEM 8 (BAS METB)on Anion gap [Moles/Vol] 11.6 mmol/L Normal [facility] Comment on above: Performed By: #### F T3, TSH, AST, LIPID, ALT, BMP ####[facility] [address] [place], [place] [address]Dr. William García Calcium [Mass/Vol] 9.0 mg/dL Normal 8.5-10.[address] [facility] Comment on above: Performed By: #### F T3, TSH, AST, LIPID, ALT, BMP ####[facility] [address] [place], [place] [address]Dr. Annikamonica García Chloride [Moles/Vol] 106 mmol/L Normal 98-107 [facility] Comment on above: Performed By: #### F T3, TSH, AST, LIPID, ALT, BMP ####[facility] [address] [place], [place] [address]Dr. Annikamonica García CO2 [Moles/Vol] 28.4 mmol/L Normal 21.0-32.0 [facility] Comment on above: Performed By: #### F T3, TSH, AST, LIPID, ALT, BMP ####[facility] [address] [place] [address]Dr. William García Creatinine [Mass/Vol] 0.64 mg/dL Normal 0.55-1.02 [facility] Comment on above: Performed By: #### F T3, TSH, AST, LIPID, ALT, BMP ####[facility] [address] [place], [place] [address]Dr. William García EGFR-AF TANZANIAN >60 Normal >=60 [facility] Comment on above: Performed By: #### F T3, TSH, AST, LIPID, ALT, BMP ####[facility] [address] [place] [address]Dr. William García EGFR-NON AF TANZANIAN >60 Normal >=60 [facility] Comment on above: Performed By: #### F T3, TSH, AST, LIPID, ALT, BMP ####[facility] [address] [place] [address]Dr. William García Glucose [Mass/Vol] 87 mg/dL Normal 74-106 [facility] Comment on above: Performed By: #### F T3, TSH, AST, LIPID, ALT, BMP ####[facility] [address] [place], [place] [address]Dr. William García Potassium [Moles/Vol] 4.0 mmol/L Normal 3.5-5.1 [facility] Comment on above: Performed By: #### F T3, TSH, AST, LIPID, ALT, BMP ####[facility] [address] [place], [place] [address]Dr. William García Sodium [Moles/Vol] 142 mmol/L Normal 136-145 [facility] Comment on above: Performed By: #### F T3, TSH, AST, LIPID, ALT, BMP ####[facility] [address] [place] [address]Dr. William García Urea nitrogen [Mass/Vol] 14.0 mg/dL Normal 7.0-18.0 [facility] Comment on above: Performed By: #### F T3, TSH, AST, LIPID, ALT, BMP ####[facility] [address] [place] [address]Dr. William García Urea nitrogen/Creatinin e [Mass ratio] 21.9 mg/mg Normal [facility] Comment on above: Performed By: #### F T3, TSH, AST, LIPID, ALT, BMP ####[facility] [address] [place] [address]Dr. William García SGOTon 10-18-2021 AST [Catalytic activity/Vol] 18 U/L Normal 15-37 [facility] Comment on above: Performed By: #### F T3, TSH, AST, LIPID, ALT, BMP #### [facility] [address] [address] [address] William García SGPTon 10-18-2021 ALT [Catalytic activity/Vol] 24 U/L Normal 14-59 [facility] Comment on above: Performed By: #### F T3, TSH, AST, LIPID, ALT, BMP ####[facility] [address] [place] [id number]. William García TSHon 10-18-2021 TSH 0.729 uIU/mL Normal 0.358-3.740 [facility] Comment on above: Performed By: #### F T3, TSH, AST, LIPID, ALT, BMP ####[facility] [address] [place] [address]DrBlanca García TSH RANGE SEE BELOW Normal [facility] Comment on above: Result Comment: <0.3 4 UIU/ml HYPERTHYROID 0.34-5.60 UIU/ml EUTHYROID >5.60 UIU/ml HYPOTHYROID Performed By: #### F T3, TSH, AST, LIPID, ALT, BMP ####[facility] [address] [place] [address]Dr. William García VITAMIN D 25 OHon 10-18-2021 VIT D 25-OH 25.2 ng/mL Normal [facility] Comment on above: Performed By: #### F T4, VITAD #### [facility] [address] [place] [address] [address] William García VIT D RANGES SEE BELOW Normal [facility] Comment on above: Result Comment: <20 ng/mL Vit D deficient 20 - <30 ng/mL Vit D insufficient 30 - 100 ng/mL Vit D sufficient >100 ng/mL Potential Toxicity Performed By: #### F T4, VITAD #### [facility] [address] [place] [address] Dr. William García FREE T3 [facility] 06-01-2021 Triiodothyronine (T3) Free 2.5 pg/mL Normal 2.0-4.4 [facility] Comment on above: Performed By: #### F T3LC #### [facility] [address] [place] [address] [address] William García VIT D 25-OH [facility] 2021 Vitamin D, 25-Hydroxy 23.2 ng/mL Critically low 30.0-100.0 [facility] Comment on above: Result Comment: Melissa min D deficiency has been defined by the [place] of [employer] and an Endocrine Society practice guideline as a level of serum 25-OH vitamin D less than 20 ng/mL (1,2). The Endocrine Society went on to further define vitamin D insufficiency as a level between 21 and 29 ng/mL (2). 1. IOM ([place] [employer]). 2010. Dietary reference intakes for calcium and D. [place]: The National Academies Press. 2. Ashley MF, Nicole AYALA, Mac ALMEIDA, et al. Evaluation, treatment, and prevention of vitamin D deficiency: an Endocrine Society clinical practice guideline. JCEM. 2010; 96(7):1911-30. Performed By: #### V ITADLC #### [facility] [address] [address] [address] William García FREE T4on 05-31-2021 Free T4 [Mass/Vol] 0.96 ng/dL Normal 0.78-2.19 [facility] Comment on above: Performed By: #### F T4 #### [facility] [address] [address] [address] William García TSHon 05-31-2021 TSH 9.014 uIU/mL Critically high 0.470-4.680 [facility] Comment on above: Performed By: #### T SH #### [facility] [address] [address] [address] William García TSH RANGE SEE BELOW Normal [facility] Comment on above: Result Comment: <0.3 4 UIU/ml HYPERTHYROID 0.34-5.60 UIU/ml EUTHYROID >5.60 UIU/ml HYPOTHYROID Performed By: #### T SH #### [facility] [address] [address] [address] William García Vital Signs Date Time Vital Sign Value Performing Clinician Facility 07-10-2023 14:08-0500 Blood Pressure Location Jose M SANTO [facility] 07-10-2023 14:08-0500 Diastolic blood pressure 70 mm[Hg] Jose M DE LA CRUZL [facility] 07-10-2023 14:08-0500 Heart rate 74 /min Jose M NILL [facility] 07-10-2023 14:08-0500 Respiratory rate 16 /min Jose M NILL [facility] 07-10-2023 14:08-0500 Systolic blood pressure 114 mm[Hg] Jose M DE LA CRUZL [facility] 06-27-2023 09:43-0500 Body height 167.6 cm Fay Pascal [employer] Work Phone: [facility] 06-27-2023 09:43-0500 Body mass index (BMI) [Ratio] 21.89 kg/m2 Fay Naida [employer] Work Phone: [facility] 06-27-2023 09:43-0500 Body temperature 97.11 [degF] Fay Federicaz [employer] Work Phone: [facility] [facility] 06-27-2023 09:43-0500 Body weight 61.51 kg Fay Naida DRY WALL NAILER Work Phone: [facility] 06-27-2023 09:43-0500 Diastolic blood pressure 62 mm[Hg] Fay Federicaz DRY WALL NAILER Work Phone: [facility] 06-27-2023 09:43-0500 Heart rate 67 /min Fay Naida DRY WALL NAILER Work Phone: [facility] 06-27-2023 09:43-0500 Respiratory rate 18 /min Fay Federicaz DRY WALL NAILER Work Phone: [facility] 06-27-2023 09:43-0500 SaO2% (BldA) [Mass fraction] 97 % Fay Stallworthnegar DRY WALL NAILER Work Phone: [facility] 06-27-2023 09:43-0500 Systolic blood pressure 98 mm[Hg] Fay Pascal DRY WALL NAILER Work Phone: [facility] 07-30-2022 09:36-0400 Body height 167.6 cm Amanda Sankovic PA-C Work Phone: [facility] 07-30-2022 09:36-0400 Body temperature 97.81 [degF] Amanda Sankovic PA-C Work Phone: [facility] 07-30-2022 09:36-0400 Body weight 65.77 kg Amanda Sankovic PA-C Work Phone: [facility] 07-30-2022 09:36-0400 Diastolic blood pressure 59 mm[Hg] Amanda Sankovic PA-C Work Phone: [facility] 07-30-2022 09:36-0400 Heart rate 65 /min Amanda Sankovic PA-C Work Phone: [facility] 07-30-2022 09:36-0400 SaO2% (BldA) [Mass fraction] 98 % Amanda Sankovic PA-C Work Phone: [facility] 07-30-2022 09:36-0400 Systolic blood pressure 109 mm[Hg] Amanda Sankovic PA-C Work Phone: [facility] 10-10-2021 10:30-0400 Body height 167.64 cm Panda Santos Other [facility] Other 10-10-2021 10:30-0400 Body mass index (BMI) [Ratio] 22.27 kg/m2 Panda Santos Other [facility] Other 10-10-2021 10:30-0400 Body temperature 96.4 [degF] Panda Santos Other [facility] Other 10-10-2021 10:30-0400 Body weight 62.6 kg Panda Santos Other [facility] Other 10-10-2021 10:30-0400 Diastolic blood pressure 68 mm[Hg] Panda Santos Other [facility] Other 10-10-2021 10:30-0400 SaO2% (BldA) [Mass fraction] 99 % Panda Santos Other [facility] Other 10-10-2021 10:30-0400 Systolic blood pressure 103 mm[Hg] Panda Santos Other [facility] Other 07-18-2021 16:00-0500 Body height 167.64 cm Panda Fabiola Other [facility] Other 07-18-2021 16:00-0500 Body mass index (BMI) [Ratio] 22.92 kg/m2 Panda Fabiola Other [facility] Other 07-18-2021 16:00-0500 Body weight 64.41 kg Panda Fabiola Other [facility] Other 07-18-2021 16:00-0500 Diastolic blood pressure 67 mm[Hg] Panda Fabiola Other [facility] Other 07-18-2021 16:00-0500 Systolic blood pressure 119 mm[Hg] Panda Hicsk Other [facility] Other 06-15-2021 11:00-0500 Body height 167.64 cm Panda Hicks Other [facility] Other 06-15-2021 11:00-0500 Body mass index (BMI) [Ratio] 22.43 kg/m2 Panda Hicks Other [facility] Other 06-15-2021 11:00-0500 Body weight 63.05 kg Panda Hicks Other [facility] Other 02-23-2021 16:30-0400 Body height 167.64 cm Kelsey Croninarney Other [facility] Other 02-23-2021 16:30-0400 Body mass index (BMI) [Ratio] 22.59 kg/m2 Kelsey Croninarney Other [facility] Other 02-23-2021 16:30-0400 Body weight 63.5 kg Kelsey Croninarney Other [facility] Other Encounters Encounter Date Encounter Type Care Provider Facility Start: 07-31-2023 End: 08-01-2023 ambulatory Jose M R DOROTHYL Facility:[facility] Start: 07-18-2023 End: 07-18-2023 ambulatory Fay Pascal Facility:[facility] Start: 07-10-2023 End: 07-11-2023 ambulatory Jose M R DOROTHYL Facility:[facility] Start: 07-10-2023 End: 07-10-2023 Patient encounter procedure Jose M SANTO General Surgery Nill/[facility] Start: 06-27-2023 ambulatory Jose M DE LA CRUZL Facility:[facility] Start: 06-27-2023 Bamboo flowsheet Fay Pascal DRY WALL NAILER Work Phone: [facility] Start: 06-27-2023 Bamboo flowsheet Fay Pascal DRY WALL NAILER Work Phone: [facility] Start: 06-27-2023 Clinisync Result Encounter Fay Pascal DRY WALL NAILER Work Phone: [facility] Department Unsolicited Start: 06-27-2023 End: 06-27-2023 ambulatory FAY PASCAL Not Available Start: 06-27-2023 End: 06-27-2023 Office outpatient visit 25 minutes Fay Pascal DRY WALL NAILER Work Phone: [facility] Comment on above: Rectal bleeding (Geraldine yesica Dx); Hypothyroidism, adult (CMS/HCC); Vitamin D deficiency; BMI 21.0-21.9, adult; Heart murmur Start: 07-30-2022 End: 07-30-2022 ambulatory AMANDA CHRISTINE Facility:[facility] Start: 07-30-2022 End: 07-30-2022 Patient encounter procedure Amanda Christine TN-C Work Phone: Colorectal Surgery Comment on above: Rectal discharge (Pr imary Dx) Start: 05-09-2022 End: 05-10-[address] PHOENIX GARNER Facility:[facility] Start: 10-18-2021 End: 10-19-[address] PHOENIX GARNER Facility:[facility] Start: 10-10-2021 End: 10-10-2021 ambulatory Panda Santos Other [facility] Other Start: 10-10-2021 Office outpatient visit [address] 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 Facility: Start: 05-02-2021 End: 05-02-2021 ambulatory Panda Hicks Other [facility] Other Start: 05-02-2021 Telephone encounter Panda Hicks [facility] Start: 05-01-2021 End: 05-01-2021 ambulatory Panda Hicks Other [facility] Other Start: 05-01-2021 Telephone encounter Panda Hicks [facility] Start: 04-10-2021 End: 04-10-2021 ambulatory Panda Hicks Other [facility] Other Start: 04-10-2021 Telephone encounter Panda Hicks [facility] Start: 03-20-2021 Telephone encounter Panda Hicks [facility] Start: 02-23-2021 Office outpatient visit 15 minutes Kelsey Pop [facility] Orth[facility] Procedures Date Procedure Procedure Detail Performing Clinician Start: 06-27-2023 ALL CBC WITH AUTO DIFF Fay Pascal DRY WALL NAILER Work Phone: Start: 05-10-2023 Mammography Fay man [employer]Y WALL NAILER Work Phone: Start: 04-03-2021 Colonoscopy Fay man [employer]Y WALL NAILER Work Phone: Start: 04-03-2021 Colonoscopy Jose M STALEY Start: 04-03-2021 Esophagogastroduodenoscopy Jose M SANTO Start: 05-20-2014 Colonoscopy Jose M STALEY Arthroscopy of knee Jose M NILL Arthroscopy of shoulder Gucci العلي NILL Bladder excision Jose M Lyn Comment on above: right upper back Colonoscopy Jose M SANTO Laparoscopy Jose M SANTO Ligation of fallopian tube Macho SANTO Plan of Treatment Date Care Activity Detail Author Start: 04-03-2031 Screening for malign ant neoplasm of colon [facility] Healthcare Start: 05-10-2024 Screening for malign ant neoplasm of breast Mammogram [facility] Start: 01-04-2024 Medicare Annual Well ness (AWV) Medicare Annual Wellness (AWV) [facility] Start: 07-31-2023 End: 07-31-2023 Patient encounter procedure 07/31/2023 9:20 AM EDT Office Visit [facility] [address] [place] [address] Fay Pascal, DRY WALL NAILER [address] [place] [address] [facility] Start: 06-27-2023 End: 06-27-2024 25-hydroxyvitamin D3 [Mass/volume] in Serum or Plasma Vitamin D 25 hydroxy Lab Routine Vitamin D deficiency Expected: 06/27/2023 (Approximate), Expires: 06/27/2024 [facility] Work Phone: Comment on above: Expected: 06/27/2023 (Approximate), Expires: 06/27/2024 Start: 06-27-2023 End: 06-27-2024 CBC W Auto Differential panel - Blood CBC and differential Lab Routine Rectal bleeding Expected: 06/27/2023 (Approximate), Expires: 06/27/2024 [facility] Comment on above: Expected: 06/27/2023 (Approximate), Expires: 06/27/2024 Start: 06-27-2023 End: 06-27-2024 Comprehensive metabolic 2000 panel - Serum or Plasma Comprehensive metabolic panel Lab Routine Hypothyroidism, adult (CMS/HCC) Vitamin D deficiency Rectal bleeding Expected: 06/27/2023 (Approximate), Expires: 06/27/2024 [facility] Comment on above: Expected: 06/27/2023 (Approximate), Expires: 06/27/2024 Start: 06-27-2023 End: 06-27-2024 Erythrocyte sedimentation rate Sedimentation rate, automated Lab Routine Rectal bleeding Expected: 06/27/2023 (Approximate), Expires: 06/27/2024 [facility] Comment on above: Expected: 06/27/2023 (Approximate), Expires: 06/27/2024 Start: 06-27-2023 End: 06-27-2024 Ferritin [Mass/volume] in Serum or Plasma Ferritin Lab Routine Rectal bleeding Expected: 06/27/2023 (Approximate), Expires: 06/27/2024 [facility] Comment on above: Expected: 06/27/2023 (Approximate), Expires: 06/27/2024 Start: 06-27-2023 End: 06-27-2024 Iron and Iron binding capacity panel - Serum or Plasma Iron level Lab Routine Rectal bleeding Expected: 06/27/2023 (Approximate), Expires: 06/27/2024 [facility] Comment on above: Expected: 06/27/2023 (Approximate), Expires: 06/27/2024 Start: 06-27-2023 End: 06-27-2024 Thyrotropin [Units/volume] in Serum or Plasma TSH Lab Routine Hypothyroidism, adult ([facility]) Expected: 06/27/2023 (Approximate), Expires: 06/27/2024 [facility] Comment on above: Expected: 06/27/2023 (Approximate), Expires: 06/27/2024 Start: 06-27-2023 End: 06-27-2024 Thyroxine (T4) free [Mass/volume] in Serum or Plasma T4, free Lab Routine Hypothyroidism, adult ([facility]) Expected: 06/27/2023 (Approximate), Expires: 06/27/2024 [facility] Comment on above: Expected: 06/27/2023 (Approximate), Expires: 06/27/2024 Start: 06-27-2023 End: 06-27-2024 Triiodothyronine (T3) Free [Mass/volume] in Serum or Plasma T3, free Lab Routine Hypothyroidism, adult (CMS/HCC) Expected: 06/27/2023 (Approximate), Expires: 06/27/2024 [facility] Comment on above: Expected: 06/27/2023 (Approximate), Expires: 06/27/2024 Start: 06-27-2023 End: 06-27-2023 Patient encounter procedure 06/27/2023 9:40 AM EST Office Visit [facility] [address] [place] [id number] Fay Pascal DRY WALL NAILER [address] [place] [id number] Hypothyroidism, adult (CMS/HCC) (Primary Dx); Vitamin D deficiency [facility] Comment on above: Hypothyroidism, adul t (CMS/HCC) (Primary Dx); Vitamin D deficiency Start: 01-18-2023 Influenza vaccination Influenza Vacc ine (#1) [facility] Start: 05-20-2022 ADVANCE DIRECTIVE DISCUSSION ADVANCE DIRECTIVE DISCUSSION [facility] Start: 05-20-2022 DEPRESSION ASSESSMENT DEPRESSION ASS ESSMENT [facility] Start: 01-18-2022 Influenza vaccination INFLUENZA (#1) [facility] Start: 2020 BONE DENSITY BONE DENSITY [facility] Start: 2020 PNEUMOCOCCAL: 65+ (1 - PCV) PNEUMOCOCCAL: 65+ (1 - PCV) [facility] Start: 2005 SHINGRIX VACCINE (1 of 2) HARTMANN GRIX VACCINE (1 of 2) [facility] Start: 2000 COLOGUARD (FIT-DNA) COLOGUARD (FIT-D NA) [facility] Start: 2000 Colonoscopy COLONOSCOPY [facility] Start: 2000 COLORECTAL CANCER SCREENING COLORECTAL CANCER SCREENING [facility] Start: [address] COLONOGRAPHY [facility] Start: 2000 DIABETES SCREEN DIABETES SCREEN [facility] Start: 2000 FECAL OCCULT BLOOD FECAL OCCULT BLOO D [facility] Start: 2000 LIPID SCREEN LIPID SCREEN [facility] Start: 2000 SIGMOIDOSCOPY SIGMOIDOSCOPY [facility] Start: 1995 Mammography MAMMOGRAM [facility] Start: 1974 Urine microalbumin profile DTAP,TDAP ,TD (1 - Tdap) [facility] Start: 1973 HEPATITIS C SCREENING HEPATITIS C [employer] [facility] Start: 01-15-1956 COVID-19 VACCINE (#1) COVID-19 VACCI NE (#1) [facility] Start: 1955 Screening for malign ant neoplasm of colon [facility] Immunizations Immunization Date Immunization Notes Care Provider Fa cility 02-27-2022 Pneumococcal Conjuga te PCV 20 Fay Pascal DRY WALL NAILER Work Phone: [facility] 02-23-2021 Kenalog -40 mg Kelsey mckee Other [facility] Other 09-28-2020 Kenalog -40 mg Kelsey mckee Other [facility] Other 09-28-2020 Gel-One Kelsey dior Other [facility] Other 07-15-2014 pneumococcal conjuga te vaccine, 13 valent Fay Pascal DRY WALL NAILER Work Phone: [facility] 08-18-2009 pneumococcal polysaccharide vaccine, 23 valent Fay Pascal DRY WALL NAILER Work Phone: [facility] NEGATED: Highlighted row has not occurred!07-10-2023 influenza virus vaccine, unspecified formulation Jose M SANTO General Surgery [place] Payers Date Payer Category Payer Self-pay 2020 Medicare [id number] 2020 Private Health Insurance [employer] A ETNA MEDICARE SUPPLEMENT [id number] 2020-Present [phone] [address] [address] [place] [address] Indemnity [id number] 1959 Medicare [id number] 1959 Private Health Insurance CLI [id number] 1955 Unknown [id number] 1955 Unknown [id number] 1955 Unknown [id number] 1955 Unknown [id number] 1955 Unknown [id number] 1955 Unknown [id number] Unknown [id number] Social History Date Type Detail Facility Start: 06-26-2023 End: 06-27-2023 Sex Assigned At [facility] Start: 07-30-2022 End: 07-10-2023 Tobacco smoking status NHIS Never smoked tobacco [facility] Start: 07-30-2022 End: 06-25-2023 Tobacco use and exposure Smokeless tobacco non-user [facility] Start: 07-30-2022 End: 06-27-2023 Alcohol intake Ex-drinker (finding) [facility] Start: 1955 Sex Assigned At Not on file [facility] Start: 06-26-2023 End: 06-27-2023 History of Social function [facility] Within the last year , have you been afraid of your partner or ex-partner? No [facility] Attends [employer] Not on file [facility] [...] Fay Pascal, DELMY - 06/27/2023 10:57 AM ESTFay Pascal, DRY WALL NAILER - 06/27/2023 10:51 AM ESTFay Pascal, DELMY - 06/27/2023 10:50 AM ESTLisa Pascal, DRY WALL NAILER - 06/27/2023 9:40 AM ESTPatient Instructions Note [...] 50,000 intl units (1.25 mg) oral capsule, 87443 International_Unit= 1 cap(s), Oral, qWeek Allergies No Known Allergies No Known Medication Allergies Social History Alcohol - Denies Alcohol Use, 07/10/2023 Substance Abuse - Denies Substance Abuse, 07/10/2023 Tobacco Never (less than 100 in lifetime) Tobacco Use:. Never Smokeless Tobacco Use:., 07/10/2023 Family History Liver cancer: Brother. Primary yeimi (more content not included)... [facility] Comment on above: Result Comment: Elec tronically [...] Basal cell carcinoma 06/27/2023 Childbirth x3 Dyslipidemia ([facility]) 06/27/2023 Gastroesophageal reflux disease 06/27/2023 Hypothyroidism, adult ([facility]) 06/27/2023 Lichenification and lichen simplex chronicus 06/27/2023 Osteoarthritis 06/27/2023 Osteoporosis, 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[facility]) 06/27/2023 Prediabetes 06/27/2023 Primary osteoarthritis of right knee 06/27/2023 Right hip pain 06/27/2023 SCC (squamous cell carcinoma) 06/27/2023 Vitamin D deficiency 06/27/2023 Past Surgical History: Procedure Laterality Date COLONOSCOPY 2015 COLONOSCOPY 04/03/2021 colonoscopy / EGD - Dr [...] medication and cologuard documented in this encounter [facility] 07-30-2022 Instructions Amanda Christine PA-C - 07/30/2022 [...] if no improvement documented in this encounter [facility] 07-30-2022 History and physical note COLORECTAL SURGERY [...] scan,MRI and colonoscopy ( brought to front office director to be scanned in) were completed and [...] was otherwise normal. Patient tolerated procedure well. Radio Intelligence Operator present: Yes, Kristin Fuentes MA Diagnostic tests reviewed for today's visit: Colonoscopy Report CT imaging MRI imaging All outside imaging and records were reviewed with the patient during consultation. Assessment Assessment and Plan: Alesha Bonilla is a 67 year old female who comes to [facility] for rectal mucous/ discharge. Upon obtaining [...] which included preparing to see the patient, [id number] patient care, completing clinical documentation, obtaining and/or reviewing separately obtained history, performing a medically appropriate examination, counseling and educating the patient/family/caregiver, and ordering medications, tests, or procedures. documented in this encounter [facility] 10-10-2021 Evaluation note Encounter Date Diagnosis Assessment [...] Other 1 hour and 10 minutes spent [id number] with the patient, the majority in counseling and education [facility] Other 03-01-2022 Evaluation note* Encounter Date Diagnosis Assessment Notes Treatment Notes Treatment Clinical Notes Jul, Irritable bowel syndrome with diarrhea (ICD-10 - K58.0) Jul, GERD (gastroesophageal reflux disease) (ICD-10 - K21.9) Jul, Liver hemangioma (ICD-10 - D18.03) Jul, Other REASSURANCE REPEAT RUQ U/S IN 4-6 MONTHS (IN RECALL) [facility] Other 02-01-2022 Evaluation note* Encounter Date Diagnosis Assessment Notes Treatment Notes Treatment Clinical Notes Jun, Liver lesion (ICD-10 - K76.9) [facility] Other 01-27-2022 Evaluation note* Encounter Date Diagnosis [...] without obstruction or gangrene (ICD-10 - K43.9) [facility] Other 11-22-2021 Evaluation note* Encounter Date Diagnosis Assessment Notes Treatment Notes Treatment Clinical Notes Mar, Diarrhea (ICD-10 - R19.7) Mar, Weight loss (ICD-10 - R63.4) [facility] Other 11-01-2021 Evaluation note* Encounter Date Diagnosis Assessment Notes Treatment Notes Treatment Clinical Notes Mar, Abdominal cramping (ICD-10 - R10.9) Mar, Diarrhea (ICD-10 - R19.7) [facility] Other 10-07-2021 Evaluation note* Encounter Date Diagnosis [...] Feb, Left hip pain (ICD-10 - M25.552) [facility] Other Evaluation + Plan note No data available for this section General Surgery [place] Evaluation noteNo InformationNort Vonage Other Evaluation note* Diagnosis Rectal discharge- Primary Other symptoms involving digestive system [facility] [place] [facility] Diagnosis Rectal bleeding- Primary Hemorrhage of [...] removal from lip Hospitalization History see above [facility] Other History general Narrative - Reported* Type Description Date Medical History high cholesterol Medical History Hypothyroidism Medical History obstructive sleep apnea Surgical History meniscus repair Surgical History rotator cuff repair Surgical History lipoma removed from right shoul neela Surgical History skin cancer removal from lip Hospitalization History see above [facility] Other Hospital Discharge instructions No data available for this section General Surgery [place] Progress note No data available for this section General Surgery [place] Reason for referral (narrative)* Consultation (Routine) - Pending Review Specialty Diagnoses / Procedures Referred By Seb díaz Referred To Contact General Surgery Diagnoses Rectal bleeding Procedures RI OFFICE/OUTPATIENT NEW HIGH MDM 60 MINUTES Fay Pascal NP [address] [place] [address] Jose M Santo MD [facility] [address] [place] [address] Referral ID Status Reason Start Date Expiration Date Visits Requested Visits Authorized [id number] Pending Review Specialty Services Required 06/27/2023 12/24/2023 [...] and content) DATE CREATED AUTHOR 05/17/2022 [facility] DATE CREATED AUTHOR AUTHOR'S ORGANIZ ATION 07/31/2022 [facility] DATE CREATED AUTHOR AUTHOR'S ORGANIZ ATION 06/28/2023 [facility] dical [facility] DATE CREATED AUTHOR AUTHOR'S ORGANIZ ATION 07/27/2023 [facility] DATE CREATED AUTHOR AUTHOR'S ORGANIZ ATION 08/06/2023 [facility] Source Comments (unrecognize d section and content) In the event this informatio n is protected by the Federal Confidentiality of Alcohol and Drug Abuse Patient Records regulations: The Federal rules restrict any use of the information to criminally investigate or prosecute any alcohol or drug abuse patient.[facility] Care Teams (unrecognized sec tion and content) Human Resources Professional Relationship Specialty Start Date End Date Phoenix Garner [address] [place] [address] PCP - General Family Medicine 07/26/22 Human Resources Professional Relationship Specialty Start Date End Date Phoenix Garner MD [address] [place] [address] PCP - General Family Medicine 06/18/23 Human Resources Professional Relationship Specialty Start Date End Date Phoenix Garner MD [address] [place] [address] PCP - General Family Medicine 06/18/23 Human Resources Professional Relationship Specialty Start Date End Date Phoenix Garner MD [address] [place] [address] PCP - General Family Medicine 06/18/23 FOR [...] BE BASED ON THE PRIMARY CLINICAL RECORDS. [facility] [employer] [facility]. provides no warranty or guarantee of the accuracy or completeness of information in this document.
--- NOTE | 2023-11-17 14:03 | CT_ITS ---
The [address] [address] Patient Name: LITO BONILLA MRN: [id number] date: 1955 Sex: F Assigned Patient Location: ER Current Patient Location: ER Accession/Order Number: [id number] Exam Date: 11/17/2023 14:35 Report Date: 11/17/2023 16:17 At the request of: ANAIS LOVELACE Procedure: CT abdomen pelvis w con CT ABDOMEN AND PELVIS WITH CONTRAST HISTORY: Abdominal pain. COMPARISON: None. METHOD: Dose reduction techniques were achieved by using automated exposure control and/or adjustment of mA and/or kV according to patient size and/or use of iterative reconstruction technique. FINDINGS: The lung bases are clear. There are are multiple hepatic cysts. There is no intrahepatic biliary ductal dilatation. The stomach is normal appearing. The spleen is normal in size. The adrenal glands are normal appearing. There is a large left renal cyst. The pancreatic duct is dilated measuring 7 mm. There are no solid renal masses or hydronephrosis. There is a small umbilical hernia with omentum. There is no bowel wall thickening or obstruction. The appendix is not visualized. There is no free fluid or free air. There is no evidence of lymphadenopathy. There are no acute bony abnormalities. CT/CT abdomen pelvis w con IMPRESSION: Small umbilical hernia with omentum. Pancreatic ductal dilatation. Hepatic cyst. Left renal cyst. Electronically authenticated by: VICENTA NICHOLSON Date: 11/17/2023 16:17
--- NOTE | 2023-11-17 14:03 | ED.ABDPAIN1 ---
HPI - Abdominal Pain General Chief Complaint: Abdominal Pain Stated Complaint: ABDOMINAL PAIN Time Seen by Provider: 11/17/23 13:56 Source: patient Mode of arrival: walk-in Limitations: no limitations History of Present Illness HPI narrative: 68-year-old female presents for abdominal pain which now feels better. She states she has had a lump just above her bellybutton for a long time but an hour ago it seemed to get bigger and now it seems like it popped back in. She has never been diagnosed with a hernia. No vomiting or trauma or fever. No constipation or diarrhea. Related Data Home Medications ?Medication ?Instructions ?Recorded ?Confirmed cholecalciferol (vitamin D3) 1,250 50,000 unit PO QWEEK 07/22/23 11/17/23 mcg (50,000 unit) oral wafer levothyroxine 100 mcg tablet 100 mcg PO DAILY 07/22/23 11/17/23 (Synthroid) Allergies Allergy/AdvReac Type Severity Reaction Status Date / Time No Known Drug Allergies Allergy Unverified 11/17/23 13:45 Review of Systems ROS Narrative A ten point review of systems is negative except as noted above. [facility] Medical History (Updated 11/17/23 @ 16:32 by Ti Sandra MD) Psychophysiologic insomnia ?F51.04 - Psychophysiologic insomnia (ICD-10) GERD (gastroesophageal reflux disease) ?K21.9 - Gastro-esophageal reflux disease without esophagitis (ICD-10) Vitamin D deficiency ?E55.9 - Vitamin D deficiency, unspecified (ICD-10) Squamous cell carcinoma Rectal bleeding ?K62.5 - Hemorrhage of anus and rectum (ICD-10) Prediabetes ?R73.03 - Prediabetes (ICD-10) Osteoporosis ?M81.0 - Age-related osteoporosis without current pathological fracture (ICD-10) Sleep apnea ?G47.30 - Sleep apnea, unspecified (ICD-10) Liver lesion ?K76.9 - Liver disease, unspecified (ICD-10) IBS (irritable bowel syndrome) ?K58.9 - Irritable bowel syndrome without diarrhea (ICD-10) Lactose intolerance ?E73.9 - Lactose intolerance, unspecified (ICD-10) Hypothyroidism ?E03.9 - Hypothyroidism, unspecified (ICD-10) Colon polyps ?K63.5 - Polyp of colon (ICD-10) Hemorrhoid ?K64.9 - Unspecified hemorrhoids (ICD-10) Heart murmur ?R01.1 - Cardiac murmur, unspecified (ICD-10) Dyslipidemia ?E78.5 - Hyperlipidemia, unspecified (ICD-10) Diverticulosis ?K57.90 - Diverticulosis of intestine, part unspecified, without perforation or abscess without bleeding (ICD-10) Surgical History (Updated 07/22/23 @ 10:22 by Leticia Cleaning) H/O tubal ligation ?Z98.51 - Tubal ligation status (ICD-10) H/O arthroscopy of shoulder ?Z98.890 - Other specified postprocedural states (ICD-10) Hx of arthroscopy of knee ?Z98.890 - Other specified postprocedural states (ICD-10) H/O esophagogastroduodenoscopy ?Z98.890 - Other specified postprocedural states (ICD-10) History of colonoscopy ?Z98.890 - Other specified postprocedural states (ICD-10) Family History (Updated 07/22/23 @ 10:54 by Leticia Cleaning) Brother Family history of cancer Father Family history of cancer Social History (Updated 07/22/23 @ 13:06 by Babita Phillips) Within the past year, how often did you have a drink containing alcohol: never Score interpretation: A score less than 3 is consistent with normal alcohol consumption. Smoking status: Never smoker Non-prescribed substance use: denies use Previous occupational history: RETIRED Highest level of school completed/degree received: high school graduate Exam Narrative Exam Narrative: Nurses note and vital signs reviewed and patient is not hypoxic. General: The patient appears well and in no apparent distress. Patient is resting comfortably on cart. Skin: Warm, dry, no pallor noted. There is no rash noted. Head: Normocephalic, atraumatic Eye: Normal conjunctiva, no drainage Ears, Nose, Mouth, and Throat: oral mucosa is moist. Nares patent. Cardiovascular: Regular Rate and Rhythm Respiratory: Patient is in no distress, no accessory muscle use, lungs are clear to auscultation, no wheezing, rales or rhonchi Back: I do not appreciate an umbilical hernia. No tenderness to palpation, no masses appreciated. No rebound, guarding, or rigidity noted. Musculoskeletal: The patient has no evidence of calf tenderness, no pitting edema, symmetrical pulses noted bilaterally Neurological: A&O, normal speech Psychiatric: Cooperative Constitutional Vital Signs, click to edit/add: Last Vital Signs Temp 98.6 F 11/17/23 13:45 Pulse 72 11/17/23 15:46 Resp 18 11/17/23 15:46 BP 112/60 11/17/23 15:46 Pulse Ox 98 11/17/23 15:46 O2 Del Method Room Air 11/17/23 13:45 Course Vital Signs Vital signs: Vital Signs Temperature 98.6 F 11/17/23 13:45 Pulse Rate 68 11/17/23 13:45 Respiratory Rate 16 11/17/23 13:45 Blood Pressure 110/68 11/17/23 13:45 Pulse Oximetry 96 11/17/23 13:45 Oxygen Delivery Method Room Air 11/17/23 13:45 Temperature 98.6 F 11/17/23 13:45 Pulse Rate 72 11/17/23 15:46 Respiratory Rate 18 11/17/23 15:46 Blood Pressure 112/60 11/17/23 15:46 Pulse Oximetry 98 11/17/23 15:46 Oxygen Delivery Method Room Air 11/17/23 13:45 MDM - Abdominal Pain MDM Narrative Medical decision making narrative: Umbilical hernia is identified with omentum. She is being referred to general surgery for appropriate follow-up. Treatment diagnosis and follow-up were discussed with the patient. Differential Diagnosis Differential diagnosis: Likely abdominal pain, small bowel obstruction and other (Umbilical hernia) Lab Data Attestation: I reviewed the patient's lab results. Labs: Lab Results 11/17/23 Range/Units 13:54 WBC 5.4 (4.0-11.0) 10^3/uL RBC 4.13 L (4.20-5.40) 10^6/uL Hgb 12.2 (12.0-16.0) g/dL Hct 37.5 (36.0-48.0) % MCV 90.8 (81.0-99.0) fL MCH 29.5 (26.7-34.0) pg MCHC 32.5 (29.9-35.2) g/dL RDW 12.6 (11.0-15.0) % Plt Count 179 (150-450) 10^3/uL MPV 10.6 (9.5-13.5) fL Neut % (Auto) 67.1 (43.0-75.0) % Lymph % (Auto) 21.4 (20.5-60.0) % [place] % (Auto) 8.9 (1.7-12.0) % Eos % (Auto) 1.3 (0.9-7.0) % Baso % (Auto) 1.1 (0.2-2.0) % Neut # (Auto) 3.6 (1.4-6.5) 10^3/uL Lymph # (Auto) 1.2 (1.2-3.8) 10^3/uL [place] # (Auto) 0.5 (0.3-0.8) 10^3/uL Eos # (Auto) 0.1 (0.0-0.7) 10^3/uL Baso # (Auto) 0.1 (0.0-0.1) 10^3/uL Abs Immat Gran (auto) 0.01 (0.00-0.03) 10^3/uL Imm/Tot Granulo (auto) 0.2 (0.0-0.5) % Sodium 141 (136-145) mmol/L Potassium 3.3 L (3.5-5.1) mmol/L Chloride 104 (98-107) mmol/L Carbon Dioxide 27.6 (21.0-32.0) mmol/L Anion Gap 12.7 BUN 13.0 (7.0-18.0) mg/dL Creatinine 0.75 (0.55-1.02) mg/dL Est GFR ( Amer) >60 (>=60) Est GFR (Non-Af Amer) >60 (>=60) BUN/Creatinine Ratio 17.3 Glucose 108 H (74-106) mg/dL Calcium 9.2 (8.5-10.1) mg/dL Imaging Data CT scan - abdomen: Radiologist's impression: ITS Impressions Abdomen/Pelvis CT 11/17/23 14:03 IMPRESSION: Small umbilical hernia with omentum. Pancreatic ductal dilatation. Hepatic cyst. Left renal cyst. Electronically authenticated by: VICENTA NICHOLSON Date: 11/17/2023 16:17 Discharge Plan Discharge Stand Alone Forms: Portal Instructions Chief Complaint: Abdominal Pain Clinical Impression: Hernia, umbilical Patient Disposition: Home, Self-Care Time of Disposition Decision: 16:32 Condition: Good Mode of Transportation: Private Vehicle Prescriptions / Home Meds: No Action levothyroxine [Synthroid] 100 mcg tablet 100 mcg PO DAILY cholecalciferol (vitamin D3) 1,250 mcg (50,000 unit) wafer 50,000 unit PO QWEEK Print Language: Scottish Instructions: Umbilical Hernia (ED) Referrals: Fay Pascal NP [Primary Care Provider] - 1 week Jose M Casas MD [Physician] - 1 week
[2023-11-17 14:08] LABS: Basophils Absolute Auto 0.1 10^3/uL (0.0-0.1); Basophils Percent Auto 1.1 % (0.2-2.0); Eosinophils Absolute Auto 0.1 10^3/uL (0.0-0.7); Eosinophils Percent Auto 1.3 % (0.9-7.0); Hematocrit 37.5 % (36.0-48.0); Hemoglobin 12.2 g/dL (12.0-16.0); Immature Granulocytes Abs Auto 0.01 10^3/uL (0.00-0.03); Immature Granulocytes Pct Auto 0.2 % (0.0-0.5); Lymphocytes Absolute Auto 1.2 10^3/uL (1.2-3.8); Lymphocytes Percent Auto 21.4 % (20.5-60.0); Mean Corpuscular HGB Conc 32.5 g/dL (29.9-35.2); Mean Corpuscular Hemoglobin 29.5 pg (26.7-34.0); Mean Corpuscular Volume 90.8 fL (81.0-99.0); Mean Platelet Volume 10.6 fL (9.5-13.5); Monocytes Absolute Auto 0.5 10^3/uL (0.3-0.8); Monocytes Percent Auto 8.9 % (1.7-12.0); Neutrophils Absolute Auto 3.6 10^3/uL (1.4-6.5); Neutrophils Percent Auto 67.1 % (43.0-75.0); Platelet Count 179 10^3/uL (150-450); Red Blood Count 4.13 10^6/uL (4.20-5.40); Red Cell Distribution Width 12.6 % (11.0-15.0); White Blood Count 5.4 10^3/uL (4.0-11.0)
[2023-11-17 14:24] LABS: Anion Gap 12.7; BUN Creatinine Ratio 17.3; Calcium 9.2 mg/dL (8.5-10.1); Carbon Dioxide 27.6 mmol/L (21.0-32.0); Chloride 104 mmol/L (98-107); Estimated GFR (African America >60 (>=60); Estimated GFR (Non-African Ame >60 (>=60); Glucose 108 mg/dL (74-106); Potassium 3.3 mmol/L (3.5-5.1); Sodium 141 mmol/L (136-145)
[2023-11-17 15:46] VITALS: BP 112/60; PULSE 72; O2SAT 98
[2023-11-17 16:35] VITALS: BP 116/88; PULSE 66; O2SAT 98
== END 2023-11-17 16:39 | disposition home or self-care (01) ==
PROVIDERS: Emergency Provider Emergency Medicine; PCP Nurse Practitioner
DX: K42.9 Umbilical hernia without obstruction or gangrene (principal)
CPT/HCPCS: 36415; 74177; 80048; 85025; 99285; Q9967

== ENCOUNTER 2023-12-10 08:42 | Outpatient (OUT) | payer MEDICARE, SELFPAY ==
[2023-12-10 09:45] LABS: TSH W/ REFLEX FT4 4.285 uIU/mL (0.358-3.740)
== END 2023-12-10 08:43 | disposition home or self-care (01) ==
LOC: LAB 08:44
PROVIDERS: PCP Nurse Practitioner; Visit Provider Nurse Practitioner
DX: E03.9 Hypothyroidism, unspecified (principal)
CPT/HCPCS: 36415; 84439; 84443

== ENCOUNTER 2024-01-15 08:39 | Outpatient (OUT) | payer MEDICARE, SELFPAY ==
--- NOTE | 2024-01-15 09:00 | CA_ITS ---
Patient Name: LITO BONILLA MR#: [id number] : 1955 Exam Date: 01/15/2024 Ordering Doctor: YAJAIRA Pascal CNP ECHOCARDIOGRAM REPORT PROCEDURE: CA ECHO DOPPLER COMPLETE INDICATIONS: Heart murmur COMPARISON: None. DESCRIPTION: COMPLETE ECHOCARDIOGRAM Real-time transthoracic echocardiography with 2D, M-mode, spectral and color flow Doppler performed. QUALITY: Technical quality was good. LEFT VENTRICLE: Normal chamber size. Proximal septal hypertrophy (sigmoid septum). Normal systolic function. LV EF: Normal left ventricular ejection fraction, (55-60%). DIASTOLIC: Normal diastolic function. ATRIAL SEPTUM: Visually appears intact. LEFT ATRIUM: Mild dilatation. RIGHT ATRIUM: Normal chamber size. RIGHT VENTRICLE: Normal chamber size. Normal right ventricular systolic function. TRICUSPID VALVE: Normal mobility and thickness. No stenosis with mild regurgitation. Doppler studies reveal mildly (35-45) elevated right sided pressures. RVSP 39 mmHg MITRAL VALVE: Normal mobility and thickness. No evidence of mitral valve stenosis. There is no mitral annular calcification. Mild mitral regurgitation. AORTIC VALVE: Normal trileaflet appearance. No visible sclerosis. Normal leaflet mobility. No evidence of aortic valve stenosis. Mild to moderate aortic regurgitation. AORTIC ROOT: Normal diameter and appearance. Ascending aorta is normal in size. PULMONIC VALVE: Normal thickness and mobility. No stenosis. Trivial regurgitation. PERICARDIUM: No evidence of pericardial effusion. IVC: Collapses with inspirations. PLEURA: CONCLUSION: 1. Normal left ventricular size and systolic function. LVEF is estimated at 55 to 60%. 2. Normal right ventricular size and systolic function. 3. Mild left atrial dilatation. 4. Mild mitral and tricuspid regurgitation. 5. Mild to moderate aortic regurgitation. 6. Mildly elevated right-sided pressures. RVSP is 39 mmHg. Adult Echocardiography Procedure Report Left Ventricle LVEDD (3.7 - 5.6 cm): 4.45 cm LVESD (2.2 - 4.0 cm): 2.88 cm LVIVS thickness (0.6 - 1.2 cm): 1.13 cm LVPW thickness (0.5 - 1.0 cm): 0.86 cm e': 0.13 m/s E - e': 6.23 LVOT Max Gradient: 2.61 mm[Hg] LVOT Area (cm2): 0.81 m/s Peak Velocity (LVOT): 0.81 m/s Mean Velocity (LVOT): 0.60 m/s LVOT Diameter 2.24 cm Left Atrium LA Volume Index (2D A2C): 39.83 ml/m2 Left Atrium Systolic Dimension: 3.91 cm Mitral Valve MV E to A Ratio: 1.34 Mitral Valve A-Wave Peak Velocity: 0.60 m/s Mitral Valve E-Wave Peak Velocity: 0.80 m/s Right Ventricle Aorta AO Root Diam: 3.14 cm Ascending Ao Diam: 2.95 cm Aortic Valve AoV Area (Peak Ravi): 2.09 cm2, 2.09 cm2 AoV Area (VTI): 2.20 cm2, 2.20 cm2 Deceleration [place]: 1.95 m/s2 Pressure Half-Time: 602.12 ms Peak Velocity(Antegrade Flow): 1.53 m/s Peak Gradient(Antegrade Flow): 9.37 mm[Hg] Mean Velocity(Antegrade Flow): 0.93 m/s Mean Gradient(Antegrade Flow): 4.10 mm[Hg] Velocity Time Integral: 32.35 cm Tricuspid Valve Peak Velocity (Regurgitant Flow): 2.98 m/s, 2.42 m/s Pulmonic Valve Mean Gradient: 2.05 mm[Hg] Mean Velocity: 0.65 m/s Peak Velocity: 1.17 m/s, 0.96 m/s Peak Gradient: 5.44 mm[Hg], 3.70 mm[Hg] Right Atrium Right Atrium Systolic Pressure: 40.78 ml, 40.78 ml Dictated by: Marvin Gaitan M.D. on 01/15/2024 at 11:13 Approved by: Marvin Gaitan M.D. on 01/15/2024 at 11:16
== END 2024-01-15 08:40 | disposition home or self-care (01) ==
LOC: CARD 08:39
PROVIDERS: PCP Nurse Practitioner; Visit Provider Nurse Practitioner
DX: R01.1 Cardiac murmur, unspecified (principal)
CPT/HCPCS: 93306

== ENCOUNTER 2024-04-21 10:22 | Outpatient (OUT) | payer MEDICARE, SELFPAY ==
--- OUTSIDE RECORDS SUMMARY | 2024-04-21 10:34 | XMS_ITS | CCD ---
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 Role Phone Kelsey Pop Unavailable HusseinPanda villalobos Unavailable Panda Santos Unavailable PASCUAL, DR PHOENIX [...] PHOENIX Montaño Admitting Unavailable NADERER, DR PHOENIX Mnotaño Primary Care Unavailable NADERER, DR PHOENIX Montaño Consulting Unavailable NADERER, DR PHOENIX Montaño Attending Unavailable Pascual, Phoenix Montaño Primary Care Provider [phone] AMANDA CHRISTINE Attending Unavailable PASCUAL, PHOENIX Montaño Primary Care Unavailable Phoenix Garner MD Primary Care Provider FAY PASCAL Primary Care Physician Jose M SANTO Attending Unavailable FAY PASCAL Referring Unavailable Jose M SANTO Attending Unavailable FLORINA Wade Attending Provider FAY PASCAL Attending Unavailable FAY PASCAL Attending Unavailable FAY PASCAL Attending Unavailable MD Bright Mccall II Attending Provider Phoenix Garner Primary Care Unavailable Fay Pascal Admitting Unavailable Fay Pascal Attending Unavailable Christiane Wade Admitting UnavailChristiane Barth Attending Unavailjessy e NON STAFF Primary Care Unavailable Lincoln II, Bright M Admitting Bright Cosme II Attending Yosef riggs Allergies Allergy Classification Reported Allergen(s) Allergy Type Date of Onset Reaction(s) Facility (1 source) No Known Medication Allergies; Translations: [No Known Medication Allergies] Propensity to adverse reactions (disorder) [facility] Repository Medications Current Medications Medication Drug [...] morning and at noon 0 Active calcium carbonate 600 mg / cholecalciferol 0.01 mg oral tablet (4 sources) Vitamin D Start: 01-07-2024 End: 04-06-2024 take 1 tablet by mouth once in the morning Calcium Carb-Cholecalcifero l (Calcium + Vitamin D3) 600-10 MG-MCG tablet Indications: Vitamin D deficiency , Osteoporosis, 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CMS/HCC) Take 1 tablet by mouth in the morning and 1 tablet in the evening. Take with meals. 180 tablet 1 01/07/2024 04/06/2024 Active calcium lactate (1 source) Calcium Lactate Active ergocalciferol 1.25 mg oral capsule (4 sources) Provitamin D2 Compound take 1 capsule by mouth every week ergocalciferol (Vitamin D-2) 1.25 MG (26474 UT) capsule Take 1.25 mg by mouth 1 (one) time per week 0 Active levothyroxine sodium 0.075 mg oral tablet (20 sources) l-Thyroxine Start: 02-19-2024 End: 03-20-2024 take 1 tablet by mouth before mealtime levothyroxine (Synthroid) 75 MCG tablet Indications: Hypothyroidism, adult (CMS/HCC) Take 1 tablet (75 mcg) by mouth in the morning. Take before meals. 30 tablet 1 02/19/2024 03/20/2024 Active Start: 01-07-2024 End: 04-06-2024 take 1 tablet by mouth before mealtime levothyroxine (Synthroid) 100 MCG tablet Indications: Hypothyroidism, adult (CMS/HCC) Take 1 tablet (100 mcg) by mouth in the morning. Take before meals. 90 tablet 01/07/2024 02/19/2024 Discontinued (Therapy completed) Start: 12-03-2023 Levothyroxine Active MCG PO December 03, 2023 12:00am Start: 07-05-2023 take 1 tablet by genny th once daily Synthroid 100 mcg Tab 100 mcg = 1 tab(s), Oral, Daily, Refills(s) 0 Start Date: 07/05/23 Status: Ordered Start: 04-03-2021 End: 12-03-2023 take 75 ug by mouth once daily Levothyroxine Discontin ued 75 MCG PO Daily April 03, 2021 1:00am December 03, 2023 5:35pm take 1 tablet by genny th before mealtime levothyroxine (Synthroid, Levoxyl) 100 MCG tablet Indications: Hypothyroidism Take 100 mcg by mouth in the morning. Take before meals. 0 Active LEVOTHYROXINE SO DIUM (LEVOTHYROXINE ORAL) Take by [...] Take by mouth. hyaluronate (2 sources) Start: Gel-One September, 3 mL nitrofurantoin, macrocrystals 25 mg / nitrofurantoin, monohydrate 75 mg oral capsule (4 sources) Nitrofuran Antibacterial Start: End: take 1 capsule by mouth every twelve hours at mealtime Nitrofurantoin Monohyd/M-Cryst (Macrobid) 100 mg capsule Discontinued 100 MG PO Every 12 hours 10 December 03, 2023 12:00am March 19, 2024 9:44am must administer with a meal/food predniSONE 20 mg oral tablet (4 sources) Start: take 1 tablet by mouth every twenty-four hours predniSONE 20 MG 1 tablet Orally Once a day for 14 days Apr, Not-Taking sucralfate 1000 mg oral tablet (5 sources) Aluminum Complex Start: take 1 tablet by mouth every eight hours Sucralfate 1 GM 1 TABLET Orally THREE TIMES A DAY for 30 day(s) Mar, Not-Taking Suprep Bowel Prep Kit 17.5-3.13-1.6 GM/180ML (7 sources) Start: Suprep Bowel Prep Kit 17.5-3.13-1.6 GM/180ML 177 ML DIRECTED AT 4 PM AND 11 PM Orally Twice a day for 1 day(s) September, Not-Taking Triamcinolone (4 sources) Corticosteroid Start: Kenalog -40 mg Feb, 40 mg Start: [...] Date Documented Da te Episodic/Chronic Abdominal pain (14 sources) Unspecified abdominal pain; Translations: [Abdominal pain] Onset: 1 Resolved: 2 Episodic Disorders of lipid metabolism (10 sources) Hyperlipidemia, unspecified; Translations: [Dyslipidemia] Onset: 2 06-27-2023 Chronic Diverticulosis and diverticulitis (5 sources) Diverticular disease; Translations: [Diverticulosis of intestine, part unspecified, without perforation or abscess without bleeding] Onset: 4 07-05-2023 Chronic Esophageal disorders (20 sources) Gastroesophageal reflux disease; Translations: [Gastro-esophageal reflux disease without esophagitis] Onset: 2 Resolved: 4 Chronic Hemorrhoids (5 sources) Hemorrhoids; Translations: [Unspecified hemorrhoids] Onset: 4 07-05-2023 Episodic Nutritional deficiencies (16 sources) Vitamin D deficiency, unspecified; Translations: [Vitamin D deficiency] Onset: 2 Chronic Osteoarthritis (20 sources) Osteoarthritis of right knee joint; Translations: [Unilateral primary osteoarthritis, right knee] Onset: 4 06-27-2023 Chronic Osteoporosis (9 sources) Postmenopausal osteoporosis; Translations: [Age-related osteoporosis without current pathological fracture] Onset: 4 06-27-2023 Chronic Other acquired deformities (1 source) Deformity of knee joint; Translations: [Unspecified acquired deformity of right lower leg] 03-19-2024 Episodic Other acquired deformities (1 source) Unspecified acquired deformity of right lower leg; Translations: [Other acquired deformities of knee] 03-19-2024 Episodic Other and unspecified benign neoplasm (5 sources) History of polyp of colon; Translations: [History of colon polyps] Onset: 4 07-05-2023 Episodic Other gastrointestinal disorders (17 sources) Irritable bowel syndrome; Translations: [Mixed irritable bowel syndrome] Onset: 4 05-01-2023 Chronic Other gastrointestinal disorders (5 sources) Irritable [...] system and abdomen] Episodic Other liver diseases (8 sources) Lesion of liver; Translations: [Liver disease, unspecified] Onset: 4 07-05-2023 Chronic Other liver diseases (1 source) Liver disease, unspecified Onset: 2 Resolved: 2 Chronic Other liver diseases (1 source) Other specified diseases of liver; Translations: [Other specified diseases of liver] Onset: 4 Chronic Other non-traumatic joint disorders (4 sources) Pain in right hip joint; Translations: [Pain in right hip] Onset: 4 06-27-2023 Episodic Other non-traumatic joint disorders (3 sources) Pain in right knee; Translations: [Right knee pain] Onset: 4 03-18-2024 Episodic Other nutritional; endocrine; and metabolic disorders (14 sources) Intolerance to lactose; Translations: [Lactose intolerance, unspecified] Onset: 4 07-05-2023 Chronic Other nutritional; endocrine; and metabolic disorders (1 source) Lactose intolerance, unspecified Onset: 2 Resolved: 2 Chronic Other screening for suspected conditions (not mental disorders or infectious disease) (8 sources) Encounter for screening mammogram for malignant neoplasm of breast; Translations: [Patient encounter status] Onset: 2 Episodic Residual codes; unclassified (1 source) Sleep apnea; Translations: [Sleep apnea, unspecified] Chronic Residual codes; unclassified (1 source) Daytime somnolence; Translations: [Other hypersomnia] Chronic Residual codes; unclassified (8 sources) Obstructive sleep apnea syndrome; Translations: [Obstructive sleep apnea (adult) (pediatric)] Onset: 4 07-05-2023 Chronic Residual codes; unclassified (1 source) Other hypersomnia Onset: 2 Resolved: 2 Chronic Residual codes; unclassified (1 source) Obstructive sleep apnea (adult) (pediatric) Onset: 2 Resolved: 2 Chronic Residual codes; unclassified (1 source) Family history of malignant neoplasm of digestive organs; Translations: [[facility] HX ASHANTI NEOPLASM DIGESTIV ORGN] Onset: 2 Episodic Residual codes; unclassified (1 source) Family history of malignant neoplasm of trachea, bronchus and lung; Translations: [[facility] HX ASHANTI NEOPLSM TRACH BRON LNG] Onset: 2 Episodic Residual codes; unclassified (1 source) Family history of malignant neoplasm of other organs or systems; Translations: [[facility] HX ASHANTI NEOPLASM OTH ORGN/SYS] Onset: 2 Episodic Thyroid disorders (20 sources) Acquired hypothyroidism; Translations: [Hypothyroidism, unspecified] Onset: 2 Resolved: 2 Chronic Unclassified (1 source) Body mass index 20-24 - normal 07-10-2023 Past or Other Problems Problem Classification Problem Date Documented Da te Episodic/Chronic Abdominal hernia (1 source) Ventral hernia without obstruction or gangrene Onset: 2 Resolved: 2 Episodic Diabetes mellitus without complication (10 sources) Prediabetes; Translations: [Prediabetes] Onset: 2 06-27-2023 Episodic Gastrointestinal hemorrhage (11 sources) Rectal hemorrhage; Translations: [Hemorrhage of anus and rectum] Onset: 4 06-27-2023 Episodic Genitourinary symptoms and ill-defined conditions (3 sources) Dysuria; Translations: [Dysuria] Onset: 4 12-03-2023 Episodic Heart valve disorders (12 sources) Heart murmur; Translations: [Cardiac murmur, unspecified] Onset: 4 06-27-2023 Episodic Miscellaneous mental health disorders (3 sources) Psychophysiologic insomnia; Translations: [Psychophysiologic insomnia] Onset: 2 Resolved: 4 Chronic Mood disorders (4 sources) Mood disorders Onset: 4 01-07-2024 Other aftercare (1 source) Other jail (current) drug therapy; Translations: [[employer] CURRENT DRUG THERAPY] Onset: 2 Episodic Other and unspecified benign neoplasm (1 source) Hemangioma of intra-abdominal structures Onset: 2 Resolved: 2 Episodic Other connective tissue disease (1 source) Trochanteric bursitis, left hip; Translations: [Trochanteric bursitis, left hip M70.62] Onset: 1 Resolved: 1 Episodic Other gastrointestinal disorders (2 sources) Diarrhea, unspecified; Translations: [Diarrhea R19.7] Onset: 1 Resolved: 1 Episodic Other inflammatory condition of skin (8 sources) Lichen simplex chronicus; Translations: [Lichen simplex chronicus] Onset: 4 06-27-2023 Episodic Other non-epithelial cancer of skin (17 sources) Squamous cell carcinoma of skin; Translations: [Squamous cell carcinoma of skin, unspecified] Onset: 4 06-27-2023 Episodic Other non-traumatic joint disorders (1 source) Pain in left hip; Translations: [Left hip pain M25.552] Onset: 1 Resolved: 1 Episodic Other non-traumatic joint disorders (4 sources) Hip pain; Translations: [Pain in right hip] Onset: 4 06-27-2023 Episodic Other nutritional; endocrine; and metabolic disorders (1 source) Abnormal weight loss Onset: 1 Resolved: 1 Episodic Residual codes; unclassified (9 sources) Body mass index 20-24 - normal; Translations: [Body mass index (BMI) 21.0-21.9, adult] Onset: 4 06-27-2023 Episodic Results Test Name Value Interpretation Reference Range Facility XR knee RT 4V*on 03-19-2024 XR knee RT 4V* [facility] [address] [place] [address] XRay Report Signed Patient: Alesha Bonilla MR#: [id number] 57 : 1955 Acct:[id number] Age/Sex: 68 / F ADM Date: 03/19/24 Loc: [facility] Room: Type: [facility] Attending Dr: Bright Mccall II, MD Copies to: Bright Mccall MD Ordering Provider: Bright Mccall MD Date of Service: 03/19/24 XR/XR knee RT 4V*: M25.561 - Pain in right knee ([id number]) XR/XR pelvis 1-2V: M25.561 - Pain in right knee Single view of the pelvis plain film HISTORY: RIGHT knee deformity for 15 years COMPARISON: None ACUTE FINDINGS: None BONY ALIGNMENT: Adequate SOFT TISSUES: Unremarkable DEGENERATIVE CHANGE:Unremarkable INTRAPELVIC STRUCTURES: Unremarkable POSTSURGICAL CHANGES:None XR/XR pelvis 1-2V IMPRESSION:Unremarkable exam. 4 views RIGHT knee Valgus deformity. Bmxi-cj-wjbp contact lateral degenerative change. Small joint effusion. No acute bony findings. IMPRESSION: Valgus deformity of the RIGHT knee. Extensive weqr-mo-iwzj lateral degeneration. Impression dictated by: Dru Hu M.D.03/19/2024 3:48 PM Dictation Location: [place] [address] Transcribed By: [facility] 03/19/24 1548 Dictated By: Dru Hu DO 03/19/24 1547 Signed By: 03/19/24 1548 Normal [facility] Urine Cultureon 12-03-2023 Bacteria identified Cx Nom (U) <9,000 colonies/ml mixed bacterial skin contaminants 2 Days PERFORMED BY: [place] [address] PATHOLOGIST WARDROBE SPECIALIST DON BOSTON M.D. Normal [facility] Comment on above: Performed By: #### C UU #### [address] Outside Colonoscopyon 2023 Outside Colonoscopy [id number]#1.00TIFF Normal [facility] Reminderson 08-01-2023 Reminders - From: Siobhan Jernigan LPN To: GSN - Clinical; Sent: 08/01/2023 14:37:14 EDT Show up: 07/02/2033 07:00:00 EST Subject: colonoscopy recall Due Date/Time: 07/30/2033 07:00:00 EDT Reminder/Recall Patient due for screening colonoscopy 07/30/2033. Normal [facility] Transfer Inon 07-19-2023 Transfer In [id number]#[id number] Normal [facility] Blood Urea Nitrogenon 2023 Urea nitrogen [Mass/Vol] 16 mg/dL Normal 7-25 [facility] Comment on above: Order Comment: STAT FOR CT Performed By: #### B UN, CREAT #### [address] abdomen pelvis w conon CT abdomen pelvis w [facility] [address] [place] [address] CT Scan Report Signed Patient: Alesha Bonilla MR#: [id number] [birth year] : 1955 Acct:[id number] Age/Sex: 68 / F ADM Date: 07/18/23 Loc: CT Room: Type: [facility] Attending Dr: Fay Pascal Copies to: [place]TE [...] No enhancing renal mass. Impression dictated by: Reggie Alegre Jr.OBlanca07/18/2023 11:49 AM Dictation Location: [place] [address] Transcribed By: [facility] 07/18/23 1149 Dictated By: Jose Miguel Cox Jr, DO 07/18/23 1144 Signed By: 07/18/23 1149 Normal [facility] Creatinineon 07-18-2023 Creatinine [Mass/Vol] 0.82 mg/dL Normal 0.60-1.20 [facility] Comment on above: Order Comment: STAT FOR CT Performed By: #### B UN, CREAT #### [facility] [address] [place] [address] GFR/1.73 sq M.predicted MDRD (S/P/Bld) [Vol rate/Area] mL/min/{1.73_m2} Normal [facility] Comment on above: Order Comment: STAT FOR CT Result Comment: PERF ORMED BY: [place] [address] PATHOLOGIST WARDROBE SPECIALIST DON BOSTON M.D. Performed By: #### B UN, CREAT #### [facility] [address] [place] [address] Facesheeton 07-11-2023 Facesheet [id number]#[id number] Normal [facility] Ambulatory Visit Summaryon 0 07-10-2023 Ambulatory Visit Summary ALESHA BONILLA :1955 Visit Date:07/10/2023 Ambulatory Visit Instructions Your Care Team Attending Physician - MERCY MARTINEZ, Jose M Licona Primary Care Physician - FAY PASCAL CNP [...] us for your care. Normal [facility] Physician Referralon 024 Physician Referral [id number]#[id number] Normal [facility] ALL CBC WITH AUTO DIFFon BASOPHILS ABSOLUTE AUTO 0.0 [facility] Basophils/100 WBC (Bld) 0.8 % 0.2 - 2.0 % [facility] Eosinophils/100 WBC (Bld) 1.2 % 0.9 - 7.0 % [facility] Erythrocyte distribution width (RBC) [Ratio] 12.5 % 11.0 - 15.0 % [facility] Hematocrit (Bld) [Volume fraction] 39.2 % 36.0 - 48.0 % [facility] Hemoglobin (Bld) [Mass/Vol] 12.9 g/dL 12.0 - 16.0 g/dL [facility] IMMATURE GRANULOCYTES ABS AUTO 0.01 [facility] Immature granulocytes/100 WBC (Bld) 0.2 % 0.0 - 0.5 % [facility] Interpretation and review of laboratory results Abnormal [facility] LYMPHOCYTES ABSOLUTE AUTO 0.7 Low [facility] Lymphocytes/100 WBC (Bld) 14.3 % Low 20.5 - 60.0 % [facility] MCH (RBC) [Entitic mass] 29.9 pg 26.7 - 34.0 pg [facility] MCHC (RBC) [Mass/Vol] 32.9 g/dL 29.9 - 35.2 g/dL [facility] MCV (RBC) [Entitic vol] 90.7 fL 81.0 - 99.0 fL [facility] MONOCYTES ABSOLUTE AUTO 0.5 [facility] Monocytes/100 WBC (Bld) 9.4 % 1.7 - 12.0 % [facility] NEUTROPHILS ABSOLUTE AUTO 3.9 [facility] Neutrophils/100 WBC (Bld) 74.1 % 43.0 - 75.0 % [facility] Platelet mean volume (Bld) [Entitic vol] 10.2 fL 9.5 - 13.5 fL [facility] EO # 0.1 [facility] PLT 181 [facility] RBC 4.32 [facility] WBC 5.2 [facility] CNOVon 07-30-2022 CNOV Office Visit (CORSMN ) ALESHA BONILLA ([id number]) 1955 F Date Time Provider Department 07/30/22 [...] and colonoscopy ( brought to front desk officer to be scanned in) were completed and [...] liver disea (more content not included)... Normal [facility] HISTORY PHYSICALon HISTORY PHYSICAL HNO ID: [id number] Author: Amanda Christine PA-C Service: ? Author Type: Physician Inside Sales Professional Type: HANDP Filed: 07/30/2022 11:25 AM Note [...] and colonoscopy ( brought to front desk officer to be scanned in) were completed and [...] cord stimula (more content not included)... Normal [facility] MG MAMM SCREEN 3D NEETA CADon 05-09-2022 MG MAMM SCREEN 3D NEETA CAD Patient: ALESHA BONILLA Exam Date: 05/09/2022 : 1955 Gender:F Ordering : DR PHOENIX GARNER . Admission #: [id number] Family : Order #: [id number] CLICK HERE TO VIEW EXAM RADIOLOGY REPORT [...] lung cancer at age 74. LOCATION: [facility] BREAST COMPOSITION: Scattered areas fibroglandular density. FINDINGS: [...] M.D. on 05/09/2022 at 10:59 Normal [facility] CBC AUTO DIFFon 10-18-2021 BASO # 0.0 103/ul Normal 0.0-0.1 [facility] Comment on above: Performed By: #### C BC #### [facility] [address] [place] [address] Dr. William García Basophils/100 WBC (Bld) 0.8 % Normal 0.2-2.0 [facility] Comment on above: Performed By: #### C BC #### [facility] [address] [place] [address] Dr. William García EO # 0.1 103/ul Normal 0.0-0.7 [facility] Comment on above: Performed By: #### C BC #### [facility] [address] [place] [address] Dr. William García Eosinophils/100 WBC (Bld) 2.0 % Normal 0.9-7.0 [facility] Comment on above: Performed By: #### C BC #### [facility] [address] [place] [address] Dr. William García Erythrocyte distribution width (RBC) [Ratio] 12.7 % Normal 11.0-15.0 [facility] Comment on above: Performed By: #### C BC #### [facility] [address] [place] [address] Dr. William García Hematocrit (Bld) [Volume fraction] 39.2 % Normal 36.0-48.0 [facility] Comment on above: Performed By: #### C BC #### [facility] [address] [place] [address] Dr. William García Hemoglobin (Bld) [Mass/Vol] 12.8 g/dL Normal 12.0-16.0 [facility] Comment on above: Performed By: #### C BC #### [facility] [address] [place] [address] Dr. William García IG # 0.01 10e3/ul Normal 0.00-0.03 [facility] Comment on above: Performed By: #### C BC #### [facility] [address] [place] [address] Dr. William García IG % 0.2 % Normal 0.0-0.5 [facility] Comment on above: Performed By: #### C BC #### [facility] [address] [place] [address] [address] William García LYMPH # 0.9 103/ul Critically low 1.2-3.8 [facility] Comment on above: Performed By: #### C BC #### [facility] [address] [place] [address] Dr. William García Lymphocytes/100 WBC (Bld) 17.4 % Critically low 20.5-60.0 [facility] Comment on above: Performed By: #### C BC #### [facility] [address] [place] [address] Dr. William García MANUAL DIFF REQ NO Normal [facility] Comment on above: Performed By: #### C BC #### [facility] [address] [place] [address] Dr. William García MCH (RBC) [Entitic mass] 30.0 pg Normal 26.7-34.0 [facility] Comment on above: Performed By: #### C BC #### [facility] [address] [place] [address] Dr. William García MCHC (RBC) [Mass/Vol] 32.7 g/dL Normal 29.9-35.2 [facility] Comment on above: Performed By: #### C BC #### [facility] [address] [place] [address] Dr. William García MCV (RBC) [Entitic vol] 91.8 fL Normal 81.0-99.0 [facility] Comment on above: Performed By: #### C BC #### [facility] [address] [place] [address] Dr. William García MONO # 0.5 103/ul Normal 0.3-0.8 [facility] Comment on above: Performed By: #### C BC #### [facility] [address] [place] [address] Dr. William García Monocytes/100 WBC (Bld) 10.7 % Normal 1.7-12.0 [facility] Comment on above: Performed By: #### C BC #### [facility] [address] [place] [address] Dr. William García NEUT # 3.5 103/ul Normal 1.4-6.5 [facility] Comment on above: Performed By: #### C BC #### [facility] [address] [place] [address] Dr. William García Neutrophils/100 WBC (Bld) 68.9 % Normal 43.0-75.0 [facility] Comment on above: Performed By: #### C BC #### [facility] [address] [place] [address] Dr. William García Platelet mean volume (Bld) [Entitic vol] 10.3 fL Normal 9.5-13.5 [facility] Comment on above: Performed By: #### C BC #### [facility] [address] [place] [address] Dr. William García PLT 189 103/ul Normal 150-450 [facility] Comment on above: Performed By: #### C BC #### [facility] [address] [place] [address] Dr. William García RBC 4.27 106/ul Normal 4.20-5.40 [facility] Comment on above: Performed By: #### C BC #### [facility] [address] [place] [address] Dr. William García WBC 5.1 103/ul Normal 4.0-11.0 [facility] Comment on above: Performed By: #### C BC #### [facility] [address] [place] [address] Dr. William García FREE T3on 10-18-2021 FREE T3 2.63 pg/mlL Normal 2.18-3.98 [facility] Comment on above: Performed By: #### F T3, TSH, AST, LIPID, ALT, BMP ####[facility] [address] [place] [address]Dr. William García FREE T4on 10-18-2021 Free T4 [Mass/Vol] 1.42 ng/dL Normal 0.76-1.46 [facility] [facility] Comment on above: Performed By: #### F T4, VITAD #### [facility] [address] [address] [address] William García GLYCOHEMOGLOBIN A1Con 2021 ADA RECOMMENDATION SEE BELOW Normal [facility] Comment on above: Result Comment: ADA RECOMMENDED LIMIT 4.0 - 6.0 ADA THERAPEUTIC TARGET < 7.0 ACTION SUGGESTED > 7.0 Performed By: #### A 1C #### [facility] [address] [address] [address] William García Glucose [Mass/Vol] 105 mg/dL Normal [facility] Comment on above: Performed By: #### A 1C #### [facility] [address] [address] [address] William García HbA1c (Bld) [Mass fraction] 5.3 % Normal 4.5-6.2 [facility] Comment on above: Performed By: #### A 1C #### [facility] [address] [address] [address] William García LIPID PROFILEon 10-18-2021 CHOL-HDL RATIO NORM SEE BELOW Normal [facility] Comment on above: Result Comment: 3.3 - 4.4 LOW RISK 4.4 - 7.1 AVERAGE RISK 7.1 - 11.0 MODERATE RISK >11.0 HIGH RISK Performed By: #### F T3, TSH, AST, LIPID, ALT, BMP ####[facility] [address] [address]DrBlanca García Cholesterol [Mass/Vol] 222 mg/dL Critically high <=200 [facility] Comment on above: Performed By: #### F T3, TSH, AST, LIPID, ALT, BMP ####[facility] [address] [address]DrBlanca García Cholesterol in HDL [Mass/Vol] 76 mg/dL Critically high 40-60 [facility] Comment on above: Performed By: #### F T3, TSH, AST, LIPID, ALT, BMP ####[facility] [address] [address]Dr. William García Cholesterol in LDL [Mass/Vol] 136.4 mg/dL Normal [facility] Comment on above: Performed By: #### F T3, TSH, AST, LIPID, ALT, BMP ####[facility] [address] [address]Dr. William García Cholesterol.total/ Cholesterol in HDL [Mass ratio] 2.9 {ratio} Normal [facility] Comment on above: Performed By: #### F T3, TSH, AST, LIPID, ALT, BMP ####[facility] [address] [address]Dr. William García HDL NORMAL > or = 60 mg/dl - LO W CARDIOVASCULAR RISK <40 mg/dl - HIGH CARDIOVASCULAR RISK Normal [facility] Comment on above: Performed By: #### F T3, TSH, AST, LIPID, ALT, BMP ####[facility] [address] [address]Dr. William García LDL CALC NORMAL SEE BELOW Normal [facility] Comment on above: Result Comment: <100 mg/dl OPTIMAL 100 - 129 mg/dl NEAR OR ABOVE OPTIMAL 130 - 159 mg/dl BORDERLINE HIGH 160 - 189 mg/dl HIGH >190 mg/dl VERY HIGH Performed By: #### F T3, TSH, AST, LIPID, ALT, BMP ####[facility] [address] [address]Dr. William García Triglyceride [Mass/Vol] 48 mg/dL Normal <=150 [facility] Comment on above: Performed By: #### F T3, TSH, AST, LIPID, ALT, BMP ####[facility] [address] [address]Dr. William García VLDL CALC 9.6 mg/dL Normal [facility] Comment on above: Performed By: #### F T3, TSH, AST, LIPID, ALT, BMP ####[facility] [address] [address]DrBlanca García PROF CHEM 8 (BAS METB)on Anion gap [Moles/Vol] 11.6 mmol/L Normal [facility] Comment on above: Performed By: #### F T3, TSH, AST, LIPID, ALT, BMP ####[facility] [address] [address]Dr. William García Calcium [Mass/Vol] 9.0 mg/dL Normal 8.5-10.1 [facility] Comment on above: Performed By: #### F T3, TSH, AST, LIPID, ALT, BMP ####[facility] [address] [address]Dr. William García Chloride [Moles/Vol] 106 mmol/L Normal 98-107 [facility] Comment on above: Performed By: #### F T3, TSH, AST, LIPID, ALT, BMP ####[facility] [address] [address]Dr. William García CO2 [Moles/Vol] 28.4 mmol/L Normal 21.0-32.0 [facility] Comment on above: Performed By: #### F T3, TSH, AST, LIPID, ALT, BMP ####[facility] [address] [address]Dr. William García Creatinine [Mass/Vol] 0.64 mg/dL Normal 0.55-1.02 [facility] Comment on above: Performed By: #### F T3, TSH, AST, LIPID, ALT, BMP ####[facility] [address] [address]Dr. William García EGFR-AF [place]TH [place]OREAN >60 Normal >=60 [facility] Comment on above: Performed By: #### F T3, TSH, AST, LIPID, ALT, BMP ####[facility] [address] [address]Dr. William García EGFR-NON AF [place]AN >60 Normal >=60 [facility] Comment on above: Performed By: #### F T3, TSH, AST, LIPID, ALT, BMP ####[facility] [address] [address]Dr. William García Glucose [Mass/Vol] 87 mg/dL Normal 74-106 [facility] Comment on above: Performed By: #### F T3, TSH, AST, LIPID, ALT, BMP ####[facility] [address] [address]Dr. William García Potassium [Moles/Vol] 4.0 mmol/L Normal 3.5-5.1 [facility] Comment on above: Performed By: #### F T3, TSH, AST, LIPID, ALT, BMP ####[facility] [address] [address]Dr. Annikamonica García Sodium [Moles/Vol] 142 mmol/L Normal 136-145 [facility] Comment on above: Performed By: #### F T3, TSH, AST, LIPID, ALT, BMP ####[facility] [address] [address]Dr. William García Urea nitrogen [Mass/Vol] 14.0 mg/dL Normal 7.0-18.0 [facility] Comment on above: Performed By: #### F T3, TSH, AST, LIPID, ALT, BMP ####[facility] [address] [address]Dr. William García Urea nitrogen/Creatinin e [Mass ratio] 21.9 mg/mg Normal [facility] Comment on above: Performed By: #### F T3, TSH, AST, LIPID, ALT, BMP ####[facility] [address] [address]Dr. William García SGOTon 10-18-2021 AST [Catalytic activity/Vol] 18 U/L Normal 15-37 [facility] Comment on above: Performed By: #### F T3, TSH, AST, LIPID, ALT, BMP #### [facility] [address] [address] DrBlanca García SGPTon 10-18-2021 ALT [Catalytic activity/Vol] 24 U/L Normal 14-59 [facility] Comment on above: Performed By: #### F T3, TSH, AST, LIPID, ALT, BMP ####[facility] [address] [address]Dr. William García TSHon 10-18-2021 TSH 0.729 uIU/mL Normal 0.358-3.740 [facility] Comment on above: Performed By: #### F T3, TSH, AST, LIPID, ALT, BMP ####[facility] [address] [place], [place] [address]UvBlanca García TSH RANGE SEE BELOW Normal [facility] Comment on above: Result Comment: <0.3 4 UIU/ml HYPERTHYROID 0.34-5.60 UIU/ml EUTHYROID >5.60 UIU/ml HYPOTHYROID Performed By: #### F T3, TSH, AST, LIPID, ALT, BMP ####[facility] [address] [address]Dr. William García VITAMIN D 25 OHon 10-18-2021 VIT D 25-OH 25.2 ng/mL Normal [facility] Comment on above: Performed By: #### F T4, VITAD #### [facility] [address] [address] [address] William García VIT D RANGES SEE BELOW Normal [facility] Comment on above: Result Comment: <20 ng/mL Vit D deficient 20 - <30 ng/mL Vit D insufficient 30 - 100 ng/mL Vit D sufficient >100 ng/mL Potential Toxicity Performed By: #### F T4, VITAD #### [facility] [address] [address] [address] William García FREE T3 [facility] 06-01-2021 Triiodothyronine (T3) Free 2.5 pg/mL Normal 2.0-4.4 [facility] Comment on above: Performed By: #### F T3LC #### [facility] [address] [address] [address] William García VIT D 25-OH [facility] 2021 Vitamin D, 25-Hydroxy 23.2 ng/mL Critically low 30.0-100.0 [facility] Comment on above: Result Comment: Melissa min D deficiency has been defined by the [place] of [employer] and an Endocrine Society practice guideline as a level of serum 25-OH vitamin D less than 20 ng/mL (1,2). The Endocrine Society went on to further define vitamin D insufficiency as a level between 21 and 29 ng/mL (2). 1. IOM ([place] of Medicine). 2010. Dietary reference intakes for calcium and D. [place]: The National Academies Press. 2. Ashley GREEN, Nicole [place], Mac ALMEIDA, et al. Evaluation, treatment, and prevention of vitamin D deficiency: an Endocrine Society clinical practice guideline. JCEM. 2010; 96(7):1911-30. Performed By: #### V ITADLC #### [facility] [address] [place] [address] Dr. William García FREE T4on 05-31-2021 Free T4 [Mass/Vol] 0.96 ng/dL Normal 0.78-2.19 [facility] Comment on above: Performed By: #### F T4 #### [facility] [address] [place] [address] Dr. William García TSHon 05-31-2021 TSH 9.014 uIU/mL Critically high 0.470-4.680 [facility] Comment on above: Performed By: #### T SH #### [facility] [address] [place] [address] Dr. William García TSH RANGE SEE BELOW Normal [facility] Comment on above: Result Comment: <0.3 4 UIU/ml HYPERTHYROID 0.34-5.60 UIU/ml EUTHYROID >5.60 UIU/ml HYPOTHYROID Performed By: #### T SH #### [facility] [address] [place] [address] Dr. William García Vital Signs Date Time Vital Sign Value Performing Clinician Facility 03-18-2024 09:[id number] Body height 167.64 cm MD Bright Mccall II Work Phone: [facility] 03-18-2024 09:17-0400 Body mass index (BMI) [Ratio] 21.9 kg/m2 MD Bright Mccall II Work Phone: [facility] 03-18-2024 09:170400 Body weight 61.68 kg MD Bright Mccall II Work Phone: [facility] 02-19-2024 09:00-0400 Body height 167.6 cm Fay Pascal NP Work Phone: [facility] 02-19-2024 09:00-0400 Body mass index (BMI) [Ratio] 22.21 kg/m2 Faymaciel Bonillahholz FINANCIAL REP Work Phone: [facility] 02-19-2024 09:00-0400 Body temperature 98.1 [degF] Faymaciel Bonillahholz FINANCIAL REP Work Phone: [facility] 02-19-2024 09:00-0400 Body weight 62.41 kg Fay Chadhholz FINANCIAL REP Work Phone: [facility] 02-19-2024 09:00-0400 Diastolic blood pressure 60 mm[Hg] Fay Aichholz FINANCIAL REP Work Phone: [facility] 02-19-2024 09:00-0400 Heart rate 59 /min Fay Chadhholz FINANCIAL REP Work Phone: [facility] 02-19-2024 09:00-0400 Respiratory rate 19 /min Fay Chadhholz FINANCIAL REP Work Phone: [facility] 02-19-2024 09:00-0400 SaO2% (BldA) [Mass fraction] 98 % Fay Chadhholz FINANCIAL REP Work Phone: [facility] 02-19-2024 09:00-0400 Systolic blood pressure 88 mm[Hg] Fay Chadhholz FINANCIAL REP Work Phone: [facility] 12-03-2023 17:43-0400 Body height 167.64 cm [facility] 12-03-2023 17:43-0400 Body mass index (BMI) [Ratio] 21.7 kg/m2 [facility] 12-03-2023 17:43-0400 Body temperature 97.8 [degF] [facility] 12-03-2023 17:43-0400 Body weight 60.89 kg [facility] 12-03-2023 17:43-0400 Diastolic blood pressure 88 mm[Hg] [facility] 12-03-2023 17:43-0400 Heart rate 86 /min [facility] 12-03-2023 17:43-0400 Respiratory rate 16 /min [facility] 12-03-2023 17:43-0400 SaO2% (BldA) [Mass fraction] 96 % [facility] 12-03-2023 17:43-0400 Systolic blood pressure 126 mm[Hg] [facility] 07-10-2023 14:08-0500 Blood Pressure Location Jose M DE LA CRUZL [facility] 07-10-2023 14:08-0500 Diastolic blood pressure 70 mm[Hg] Jose M NILL [facility] 07-10-2023 14:08-0500 Heart rate 74 /min Jose M NILL [facility] 07-10-2023 14:08-0500 Respiratory rate 16 /min Jose M NILL [facility] 07-10-2023 14:08-0500 Systolic blood pressure 114 mm[Hg] Jose M NILL [facility] 06-27-2023 09:43-0500 Body height 167.6 cm Fay Pascal FINANCIAL REP Work Phone: [facility] 06-27-2023 09:43-0500 Body mass index (BMI) [Ratio] 21.89 kg/m2 Fay Pascal FINANCIAL REP Work Phone: [facility] 06-27-2023 09:43-0500 Body temperature 97.11 [degF] Fay Pascal FINANCIAL REP Work Phone: [facility] 06-27-2023 09:43-0500 Body weight 61.51 kg Fay Pascal FINANCIAL REP Work Phone: [facility] 06-27-2023 09:43-0500 Diastolic blood pressure 62 mm[Hg] Fay Psacal FINANCIAL REP Work Phone: [facility] 06-27-2023 09:43-0500 Heart rate 67 /min Fay Naida FINANCIAL REP Work Phone: [facility] 06-27-2023 09:43-0500 Respiratory rate 18 /min Fay Pascal FINANCIAL REP Work Phone: [facility] 06-27-2023 09:43-0500 SaO2% (BldA) [Mass fraction] 97 % Fay Pascal FINANCIAL REP Work Phone: [facility] 06-27-2023 09:43-0500 Systolic blood pressure 98 mm[Hg] Fay Pascal FINANCIAL REP Work Phone: [facility] 07-30-2022 09:36-0400 Body height 167.6 cm Amanda Sankovic PA-C Work Phone: [facility] 07-30-2022 09:36-0400 Body temperature 97.81 [degF] Amanda Sankovic PA-C Work Phone: [facility] 07-30-2022 09:36-0400 Body weight 65.77 kg Amanda Sankovic PA-C Work Phone: [facility] 07-30-2022 09:36-0400 Diastolic blood pressure 59 mm[Hg] Amanda Sankovic PA-C Work Phone: [facility] 07-30-2022 09:36-0400 Heart rate 65 /min Amanda Sankovic PA-C Work Phone: [facility] 07-30-2022 09:36-0400 SaO2% (BldA) [Mass fraction] 98 % Amanda Sankovic PA-C Work Phone: [facility] 07-30-2022 09:36-0400 Systolic blood pressure 109 mm[Hg] Amanda Sankovic PA-C Work Phone: [facility] 10-10-2021 10:30-0400 Body height 167.64 cm Panda Santos Other [employer] Other 10-10-2021 10:30-0400 Body mass index (BMI) [Ratio] 22.27 kg/m2 Panda Tom Other [employer] Other 10-10-2021 10:30-0400 Body temperature 96.4 [degF] Panda Santos Other [employer] Other 10-10-2021 10:30-0400 Body weight 62.6 kg Panda Tom Other [employer] Other 10-10-2021 10:30-0400 Diastolic blood pressure 68 mm[Hg] Panda Tom Other [employer] Other 10-10-2021 10:30-0400 SaO2% (BldA) [Mass fraction] 99 % Panda Santos Other [employer] Other 10-10-2021 10:30-0400 Systolic blood pressure 103 mm[Hg] Panda Tom Other [employer] Other 07-18-2021 16:00-0500 Body height 167.64 cm Panda Hicks Other [employer] Other 07-18-2021 16:00-0500 Body mass index (BMI) [Ratio] 22.92 kg/m2 Panda Hicks Other [employer] Other 07-18-2021 16:00-0500 Body weight 64.41 kg Panda Hicks Other [employer] Other 07-18-2021 16:00-0500 Diastolic blood pressure 67 mm[Hg] Panda Hicks Other [employer] Other 07-18-2021 16:00-0500 Systolic blood pressure 119 mm[Hg] Panda Hicks Other [employer] Other 06-15-2021 11:00-0500 Body height 167.64 cm Panda Hicks Other [employer] Other 06-15-2021 11:00-0500 Body mass index (BMI) [Ratio] 22.43 kg/m2 Panda Hicks Other [employer] Other 06-15-2021 11:00-0500 Body weight 63.05 kg Panda Hicks Other [employer] Other 02-23-2021 16:30-0400 Body height 167.64 cm Kelsey Kiesha Other [employer] Other 02-23-2021 16:30-0400 Body mass index (BMI) [Ratio] 22.59 kg/m2 Kelsey Kiesha Other [employer] Other 02-23-2021 16:30-0400 Body weight 63.5 kg Kelsey Kiesha Other [employer] Other Encounters Encounter Date Encounter Type Care Provider Facility Start: 03-19-2024 End: 03-19-2024 Patient encounter procedure MD Bright Mccall II Work Phone: [facility] Work Phone: Start: 03-19-2024 End: 03-19-2024 ambulatory NON STAFF [facility] Work Phone: Start: 02-19-2024 End: 02-19-2024 Bamboo flowsheet Fay Pascal FINANCIAL REP Work Phone: [facility] Start: 02-19-2024 End: 02-19-2024 Bamboo flowsheet Fay Chadmariferdexter FINANCIAL REP Work Phone: [facility] Start: 02-19-2024 End: 02-19-2024 Office outpatient visit 25 minutes Fay Sosadexter FINANCIAL REP Work Phone: [facility] Comment on above: Hypothyroidism, adul t (CMS/HCC) (Primary Dx); Heart murmur; Obstructive sleep apnea syndrome Start: 02-19-2024 End: 02-19-2024 ambulatory FAY CHADMariferDEXTER [facility] Comment on above: Hypothyroidism, adul t (CMS/HCC) (Primary Dx) Start: 01-07-2024 Patient encounter procedure Fay Chadmariferdexter FINANCIAL REP Work Phone: [facility] Start: 01-07-2024 End: 01-07-2024 ambulatory FAY CHADMariferDEXTER Not Available Start: 12-03-2023 End: 12-03-2023 Departed Referred MALL MANAGER Christiane Wade Work Phone: [facility] Work Phone: Start: 12-03-2023 End: 12-03-2023 ambulatory Christiane Wade [facility] Work Phone: Start: 12-03-2023 End: 12-03-2023 Patient encounter procedure [facility] Work Phone: Start: 07-31-2023 End: 08-01-2023 ambulatory Jose M R NILL Facility: [facility] Start: 07-18-2023 End: 07-18-2023 ambulatory Phoenix Garner Facility:[facility] Start: 07-10-2023 End: 07-11-2023 ambulatory Jose M R NILL Facility: [facility] Start: 07-10-2023 End: 07-10-2023 Patient encounter procedure Jose M SANTO [facility] Nill/Said [facility] Start: 06-27-2023 ambulatory Jose M NILL Facility:[facility] Start: 06-27-2023 Bamboo flowsheet Fay Pascal FINANCIAL REP Work Phone: [facility] Start: 06-27-2023 Bamboo flowsheet Fay Pascal FINANCIAL REP Work Phone: [facility] Start: 06-27-2023 Clinisync Result Encounter Fay Pascal FINANCIAL REP Work Phone: [facility] Unsolicited Start: 06-27-2023 End: 06-27-2023 Office outpatient visit 25 minutes Fay Pascal FINANCIAL REP Work Phone: [facility] Comment on above: Rectal bleeding (Geraldine yesica Dx); Hypothyroidism, adult (CMS/HCC); Vitamin D deficiency; BMI 21.0-21.9, adult; Heart murmur Start: 06-27-2023 End: 06-27-2023 ambulatory FAY PASCAL Not Available Start: 07-30-2022 End: 07-30-2022 ambulatory AMANDA CHRISTINE Facility:[facility] Start: 07-30-2022 End: 07-30-2022 Patient encounter procedure Amanda JARA-C Work Phone: [facility] Comment on above: Rectal discharge (Pr imary Dx) Start: 05-09-2022 End: 05-10-[address] PHOENIX GARNER Facility:[facility] Start: 10-18-2021 End: 10-19-[address] PHOENIX GARNER Facility:[facility] Start: 10-10-2021 End: 10-10-2021 ambulatory Panda Santos Other [employer] Other Start: 10-10-2021 Office outpatient visit 40 minutes Panda Santos [facility] Start: 07-18-2021 End: 07-18-2021 ambulatory Panda Hicks Other [employer] Other Start: 07-18-2021 Office outpatient visit 15 minutes Panda Hicks [facility] Start: 06-20-2021 End: 06-20-2021 ambulatory Panda Hicks Other [employer] Other Start: 06-20-2021 Telephone encounter Panda Hicks [facility] Start: 06-15-2021 End: 06-15-2021 ambulatory Panda Hicks Other [employer] Other Start: 06-15-2021 Office outpatient visit 25 minutes Panda Hicks [facility] Start: 05-31-2021 End: 06-01-[address] PHOENIX GARNER Facility: Start: 05-02-2021 End: 05-02-2021 ambulatory Panda Hicks Other [employer] Other Start: 05-02-2021 Telephone encounter Panda Hicks [facility] Start: 05-01-2021 End: 05-01-2021 ambulatory Panda Hicks Other [employer] Other Start: 05-01-2021 Telephone encounter Panda Hicks [facility] Start: 04-10-2021 End: 04-10-2021 ambulatory Panda Hicks Other [employer] Other Start: 04-10-2021 Telephone encounter Panda Hicks [facility] Start: 03-20-2021 Telephone encounter Panda Hicks [facility] Start: 02-23-2021 Office outpatient visit 15 minutes Kelsey Pop [facility] Procedures Date Procedure Procedure Detail Performing Clinician Start: 03-19-2024 Plain radiography of pelvis MD Bright Mccall II Work Phone: Start: 03-19-2024 X-ray of right knee, four views MD Bright Mccall II Work Phone: Start: 07-31-2023 Colonoscopy Fay man FINANCIAL REP Work Phone: Start: 06-27-2023 ALL CBC WITH AUTO DIFF Fay Pascal FINANCIAL REP Work Phone: Start: 05-10-2023 Mammography Fay Gabby man FINANCIAL REP Work Phone: Start: 04-03-2021 Colonoscopy Fay Gabby man FINANCIAL REP Work Phone: Start: 04-03-2021 Colonoscopy Jose M [...] Treatment Date Care Activity Detail Author Start: 07-30-2033 Screening for malign ant neoplasm of colon [facility] Start: 04-03-2031 Screening for malign ant neoplasm of colon [facility] Start: 01-12-2025 End: 01-12-2025 Patient encounter procedure 01/12/2025 10:00 AM EDT Office Visit [facility] [address] [place] [id number] Fay Pascal, FINANCIAL REP [address] [place] [id number] [facility] Start: 01-06-2025 Medicare Annual Well ness (AWV) Medicare Annual Wellness (AWV) [facility] Start: 06-22-2024 End: 06-22-2024 Patient encounter procedure 06/22/2024 9:00 AM EST [facility] [address] [place] [phone] Fay Pascal, DELMY [address] [place] [phone] [facility] Start: 05-10-2024 Screening for malign ant neoplasm of breast Mammogram [facility] Start: 03-19-2024 Plain radiography of pelvis XR pelvis 1-2V [facility] Start: 03-19-2024 X-ray of right knee, four views XR knee RT 4V* [facility] Start: 03-19-2024 XR Knee - right 4 Views [facility] Start: 03-19-2024 XR Pelvis 1 or 2 Views [facility] Start: 02-19-2024 End: 02-19-2024 Patient encounter procedure 02/19/2024 9:00 AM EDT Office Visit [facility] [address] [place] [address] Fay Pascal NP [address] [place] [phone] Arrived [facility] Comment on above: Arrived Start: 01-04-2024 Medicare Annual Well ness (AWV) Medicare Annual Wellness (AWV) [facility] Start: 12-03-2023 Bacteria identified in Urine by Culture [facility] Start: 07-31-2023 End: 07-31-2023 Patient encounter procedure 07/31/2023 9:20 AM EDT Office Visit [facility] [address] [place] [address] Fay Pascal, DELMY [address] [place] [phone] [facility] Start: 06-27-2023 End: 06-27-2024 25-hydroxyvitamin D3 [Mass/volume] in Serum or Plasma Vitamin D 25 hydroxy Lab Routine Vitamin D deficiency Expected: 06/27/2023 (Approximate), Expires: 06/27/2024 [facility] Work Phone: Comment on above: Expected: 06/27/2023 (Approximate), Expires: 06/27/2024 Start: 06-27-2023 End: 06-27-2024 CBC W Auto Differential panel - Blood CBC and differential Lab Routine Rectal bleeding Expected: 06/27/2023 (Approximate), Expires: 06/27/2024 [facility] Comment on above: Expected: 06/27/2023 (Approximate), Expires: 06/27/2024 Start: 06-27-2023 End: 06-27-2024 Comprehensive metabolic 2000 panel - Serum or Plasma Comprehensive metabolic panel Lab Routine Hypothyroidism, adult (CMS/HCC) Vitamin D deficiency Rectal bleeding Expected: 06/27/2023 (Approximate), Expires: 06/27/2024 [facility] Comment on above: Expected: 06/27/2023 (Approximate), Expires: 06/27/2024 Start: 06-27-2023 End: 06-27-2024 Erythrocyte sedimentation rate Sedimentation rate, automated Lab Routine Rectal bleeding Expected: 06/27/2023 (Approximate), Expires: 06/27/2024 [facility] Comment on above: Expected: 06/27/2023 (Approximate), Expires: 06/27/2024 Start: 06-27-2023 End: 06-27-2024 Ferritin [Mass/volume] in Serum or Plasma Ferritin Lab Routine Rectal bleeding Expected: 06/27/2023 (Approximate), Expires: 06/27/2024 [facility] Comment on above: Expected: 06/27/2023 (Approximate), Expires: 06/27/2024 Start: 06-27-2023 End: 06-27-2024 Iron and Iron binding capacity panel - Serum or Plasma Iron level Lab Routine Rectal bleeding Expected: 06/27/2023 (Approximate), Expires: 06/27/2024 [facility] Comment on above: Expected: 06/27/2023 (Approximate), Expires: 06/27/2024 Start: 06-27-2023 End: 06-27-2024 Thyrotropin [Units/volume] in Serum or Plasma TSH Lab Routine Hypothyroidism, adult (CMS/HCC) Expected: 06/27/2023 (Approximate), Expires: 06/27/2024 [facility] Comment on above: Expected: 06/27/2023 (Approximate), Expires: 06/27/2024 Start: 06-27-2023 End: 06-27-2024 Thyroxine (T4) free [Mass/volume] in Serum or Plasma T4, free Lab Routine Hypothyroidism, adult (CMS/HCC) Expected: 06/27/2023 (Approximate), Expires: 06/27/2024 [facility] Comment on above: Expected: 06/27/2023 (Approximate), Expires: 06/27/2024 Start: 06-27-2023 End: 06-27-2024 Triiodothyronine (T3) Free [Mass/volume] in Serum or Plasma T3, free Lab Routine Hypothyroidism, adult (CMS/HCC) Expected: 06/27/2023 (Approximate), Expires: 06/27/2024 [facility] Comment on above: Expected: 06/27/2023 (Approximate), Expires: 06/27/2024 Start: 06-27-2023 End: 06-27-2023 Patient encounter procedure 06/27/2023 9:40 AM EST Office Visit [facility] [address] [place] [address] Fay Pascal NP [address] [place] [address] Hypothyroidism, adult (CMS/HCC) (Primary Dx); Vitamin D deficiency [facility] Comment on above: Hypothyroidism, adul t (CMS/HCC) (Primary Dx); Vitamin D deficiency Start: 01-18-2023 Influenza vaccination Influenza Vacc ine (#1) [facility] Start: 05-20-2022 ADVANCE DIRECTIVE DISCUSSION ADVANCE DIRECTIVE DISCUSSION [facility] Start: 05-20-2022 DEPRESSION ASSESSMENT DEPRESSION ASS ESSMENT [facility] Start: 01-18-2022 Influenza vaccination INFLUENZA (#1) [facility] Start: 2020 BONE DENSITY BONE DENSITY [facility] Start: 2020 PNEUMOCOCCAL: 65+ (1 - PCV) PNEUMOCOCCAL: 65+ (1 - PCV) [facility] Start: 2005 SHINGRIX VACCINE (1 of 2) HARTMANN GRIX VACCINE (1 of 2) [facility] Start: 2000 COLOGUARD (FIT-DNA) COLOGUARD (FIT-D NA) [facility] Start: 2000 Colonoscopy COLONOSCOPY [facility] Start: 2000 COLORECTAL CANCER SCREENING COLORECTAL CANCER SCREENING [facility] Start: [address] COLONOGRAPHY [facility] Start: 2000 DIABETES SCREEN DIABETES SCREEN [facility] Start: 2000 FECAL OCCULT BLOOD FECAL OCCULT BLOO D [facility] Start: 2000 LIPID SCREEN LIPID SCREEN [facility] Start: 2000 SIGMOIDOSCOPY SIGMOIDOSCOPY [facility] Start: 1995 Mammography MAMMOGRAM [facility] Start: 1974 Urine microalbumin profile DTAP,TDAP ,TD (1 - Tdap) [facility] Start: 1973 HEPATITIS C SCREENING HEPATITIS C SC REENING [facility] Start: 01-15-1956 COVID-19 VACCINE (#1) COVID-19 VACCI NE (#1) [facility] Start: 1955 Screening for malign ant neoplasm of colon [facility] Immunizations Immunization Date Immunization Notes Care Provider Fa [facility] 02-27-2022 Pneumococcal Conjuga te PCV 20 Fay Pascal NP Work Phone: [facility] 02-23-2021 Kenalog -40 mg Kelsey mckee Other [employer] [facility] [place] Other 09-28-2020 Kenalog -40 mg Kelsey mckee Other [employer] [facility] Other 09-28-2020 Gel-One Kelsey dior Other [facility] [place] Other 07-15-2014 pneumococcal conjuga te vaccine, 13 valent Fay Pascal FINANCIAL REP Work Phone: [facility] 08-18-2009 pneumococcal polysaccharide vaccine, 23 valent Fay Pascal FINANCIAL REP Work Phone: [facility] NEGATED: Highlighted row has not occurred!07-10-2023 influenza virus vaccine, unspecified formulation Jose M [facility] Payers Date Payer Category Payer Self-pay [id number] 2020 Medicare [id number] 2020 Private Health Insurance [id number] 1959 Medicare [id number] 2.1 [id number] 1959 Private Health Insurance CLI [id number] 1955 Unknown [id number] 2.16.84 [id number] 1955 Unknown [id number] 2.16.84 [id number] 1955 Unknown [id number] 2.16.84 [id number] 1955 Unknown [id number] 2.16.8 [id number] 1955 Unknown [id number] 2.16.8 [id number] 1955 Unknown [id number] 2.16.84 [id number] 1955 Unknown [id number] 2.16.84 [id number] 1955 Unknown [id number] 2.16.84 [id number] Unknown [id number] 2.16.8 [id number] Unknown [id number] 2.16.8 [id number] Unknown [id number] 2.16.8 [id number] Social History Date Type Detail Facility Start: 06-26-2023 End: 01-07-2024 Sex Assigned At [facility] Start: 07-30-2022 End: 06-25-2023 Tobacco smoking status MOIS Never smoked tobacco [facility] Start: 07-30-2022 End: 06-25-2023 Tobacco use and exposure Smokeless tobacco non-user [facility] Start: 07-30-2022 End: 02-19-2024 Alcohol intake Ex-drinker (finding) [facility] Start: 1955 Sex Assigned At Not on file [facility] Start: 06-26-2023 End: 01-07-2024 History of Social function [facility] Within the last year , have you been afraid of your partner or ex-partner? No [facility] Attends [employer] Not on file [facility] Are you now , , , [...] Healthcare Start: 06-25-2023 Alcohol Comment coffee 1-2 cup s per day [facility] Start: 04-03-2021 Tobacco smoking stat us MOIS Ex-smoker (finding) [facility] Start: 1955 Sex Assigned At Female F [facility] Functional Status Date Assessment Result Facility 07-10-2023 Functional Status N/A [facility] Clinical Notes 02-23-2021 to 02-19-2024 Fay Pascal NP - 02/19/2024 10:13 AM Eddie Pascal NP - 02/19/2024 10:10 AM Eddie Pascal NP - 02/19/2024 10:10 AM ALEX MONTES - 02/19/2024 9:00 AM EDTPatient Instructions Note Date & Type Note Facility 02-19-2024 History of Present illness Narrative Associated Problem(s): Hypothyroidism, adult (CMS/HCC) Pt felt that use of 100mcg was too much, gave her night sweats, but also wasn't sure if related to her XR calcium so she stopped that too and is taking regular calcium At this point she is taking 75mcg, we will recheck labs 04/19/24 She was given the order Fu in 6 months for appt We did discuss differences between generic vs MADISON which may be causing issues as well Associated Problem(s): Obstructive sleep apnea syndrome Elevated pulmonary artery pressures noted on ECHO Does not wear PAP Associated Problem(s): Heart murmur Reviewed ECHO Will think about cardiology appt : she asked about it, if she wants it I will refer Pt went back to 75mcg-she was waking in the night with night swets- she was reading an article on [employer] about the medication causing night sweats could be the cause of heart or taking too much/too high of dose of her levothyroxine Pt stopped taking the calcium (time release) she started taking just a regular calcium and possibly at 600mg Pt states that this appt is about the echo and thyroid Images from the original note were not included. Alesha Bonilla is a 68 y.o. female presents with chief complaint of No chief complaint on file. HPI: Here to fu on ECHO as well as thyroid Murmur: no chest pain, heart palpitations, dyspnea or LE edema Thyroid Problem Presents for follow-up visit. Patient reports no anxiety, cold intolerance, constipation, depressed mood, diarrhea, dry skin, hair loss, hoarse voice, leg swelling, nail problem, palpitations, tremors, weight gain or weight loss. SUBJECTIVE: MEDICATIONS: Current Outpatient Medications Medication Instructions Calcium Carb-Cholecalciferol (Calcium + Vitamin D3) 600-10 MG-MCG tablet 1 tablet, Oral, 2 times daily with meals levothyroxine (SYNTHROID) 100 mcg, Oral, Daily before breakfast ALLERGIES: No Known Allergies REVIEW OF SYMPTOMS: Review of Systems Constitutional: Positive for night sweats (w levo 100, she went back to 75). Negative for appetite change, chills, fever, weight gain and weight loss. HENT: Negative for congestion, ear pain, hoarse voice and sore throat. Eyes: Negative for pain, discharge, redness and visual disturbance. Respiratory: Negative for cough, shortness of breath and wheezing. Cardiovascular: Negative for chest pain, palpitations and leg swelling. Gastrointestinal: Negative for abdominal pain, blood in stool, constipation, diarrhea, nausea and vomiting. Genitourinary: Negative for difficulty urinating, dysuria and frequency. Musculoskeletal: Negative for arthralgias, back pain, joint swelling and myalgias. Skin: Negative for rash and wound. Neurological: Negative for dizziness, tremors, seizures, syncope and headaches. Psychiatric/Behavioral: Negative for behavioral problems, self-injury and suicidal ideas. The patient is not nervous/anxious. Hematological: Does not bruise/bleed easily. Endocrine: Negative for cold intolerance, polydipsia, polyphagia and polyuria. Allergic/Immunologic: Negative for environmental allergies and food allergies. PAST MEDICAL HISTORY Past Medical History: Diagnosis Date Basal cell carcinoma 06/27/2023 Childbirth x3 Dyslipidemia ([facility]) 06/27/2023 Gastroesophageal reflux disease 06/27/2023 Hypothyroidism, adult ([facility]) 06/27/2023 Lichenification and lichen simplex chronicus 06/27/2023 Osteoarthritis 06/27/2023 Osteoporosis, 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[facility]) 06/27/2023 Prediabetes 06/27/2023 Primary osteoarthritis [...] in her father. OBJECTIVE: Visit Vitals BP 88/60 (BP Location: Left arm, Patient Position: Sitting, BP Cuff Size: Adult long) Pulse 59 Temp 98.1 F (Temporal) Resp 19 Ht 5' 6 Wt 137 lb 9.6 oz SpO2 98% BMI 22.21 kg/m Smoking Status Never BSA 1.7 m Physical Exam Vitals and nursing note reviewed. Constitutional: General: She is not in acute distress. Appearance: Normal appearance. HENT: Head: Normocephalic and atraumatic. Right Ear: External ear normal. Left Ear: External ear normal. Nose: Nose normal. Mouth/Throat: Mouth: Mucous membranes are moist. Eyes: Extraocular Movements: Extraocular movements intact. Conjunctiva/sclera: Conjunctivae normal. Neck: Vascular: No carotid bruit. Cardiovascular: Rate and Rhythm: Normal rate and regular rhythm. Pulses: Normal pulses. Heart sounds: Murmur heard. Pulmonary: Effort: Pulmonary effort is normal. Breath sounds: Normal breath sounds. Abdominal: General: Bowel sounds are normal. There is no distension. Palpations: Abdomen is soft. There is no mass. Tenderness: There is no abdominal tenderness. Musculoskeletal: General: Normal range of motion. Cervical back: Normal range of motion and neck supple. Right lower leg: No edema. Left lower leg: No edema. Lymphadenopathy: Cervical: No cervical adenopathy. Skin: General: [...] file. Problem List Items Addressed This Visit Hypothyroidism, adult (CMS/HCC) - Primary Pt felt that use of 100mcg was too much, gave her night sweats, but also wasn't sure if related to her XR calcium so she stopped that too and is taking regular calcium At this point she is taking 75mcg, we will recheck labs 04/19/24 She was given the order Fu in 6 months for appt We did discuss differences between generic vs MADISON which may be causing issues as well Heart murmur Reviewed ECHO Will think about cardiology appt : she asked about it, if she wants it I will refer Obstructive sleep apnea syndrome Elevated pulmonary artery pressures noted on ECHO Does not wear PAP documented in this encounter [facility] 07-10-2023 Note Chief Complaint consultation for rectal [...] 50,000 intl units (1.25 mg) oral capsule, 26416 International_Unit= 1 cap(s), Oral, qWeek Allergies No Known Allergies No Known Medication Allergies Social History Alcohol - Denies Alcohol Use, 07/10/2023 Substance Abuse - Denies Substance Abuse, 07/10/2023 Tobacco Never (less than 100 in lifetime) Tobacco Use:. Never Smokeless Tobacco Use:., 07/10/2023 Family History Liver cancer: Brother. Primary yeimi (more content not included)... [facility] Comment on above: Result Comment: Elec [...] Basal cell carcinoma 06/27/2023 Childbirth x3 Dyslipidemia ([facility]) 06/27/2023 Gastroesophageal reflux disease 06/27/2023 Hypothyroidism, adult ([facility]) 06/27/2023 Lichenification and lichen simplex chronicus 06/27/2023 Osteoarthritis 06/27/2023 Osteoporosis, 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[facility]) 06/27/2023 Prediabetes 06/27/2023 Primary osteoarthritis [...] medication and cologuard documented in this encounter [facility] 07-30-2022 Instructions Amanda Christine PA-C - 07/30/2022 [...] if no improvement documented in this encounter [facility] 07-30-2022 History and physical note COLORECTAL [...] and colonoscopy ( brought to front desk officer to be scanned in) were completed and [...] was otherwise normal. Patient tolerated procedure well. Supervising Law Enforcement Analyst present: Yes, Kristin Fuentes MA Diagnostic tests reviewed for today's visit: Colonoscopy Report CT imaging MRI imaging All outside imaging and records were reviewed with the patient during consultation. Assessment Assessment and Plan: Alesha Bonilla is a 67 year old female who comes to [facility] for rectal mucous/ discharge. Upon obtaining [...] which included preparing to see the patient, [id number] patient care, completing clinical documentation, obtaining and/or reviewing separately obtained history, performing a medically appropriate examination, counseling and educating the patient/family/caregiver, and ordering medications, tests, or procedures. documented in this encounter [facility] 10-10-2021 Evaluation note Encounter Date Diagnosis [...] Other 1 hour and 10 minutes spent [id number] with the patient, the majority in counseling and education [employer] Other 03-01-2022 Evaluation note* Encounter Date Diagnosis Assessment Notes Treatment Notes Treatment Clinical Notes Jul, Irritable bowel syndrome with diarrhea (ICD-10 - K58.0) Jul, GERD (gastroesophageal reflux disease) (ICD-10 - K21.9) Jul, Liver hemangioma (ICD-10 - D18.03) Jul, Other REASSURANCE REPEAT RUQ U/S IN 4-6 MONTHS (IN RECALL) [employer] Other 02-01-2022 Evaluation note* Encounter Date Diagnosis Assessment Notes Treatment Notes Treatment Clinical Notes Jun, Liver lesion (ICD-10 - K76.9) [employer] Other 01-27-2022 Evaluation note* Encounter Date Diagnosis [...] without obstruction or gangrene (ICD-10 - K43.9) [employer] Other 11-22-2021 Evaluation note* Encounter Date Diagnosis Assessment Notes Treatment Notes Treatment Clinical Notes Mar, Diarrhea (ICD-10 - R19.7) Mar, Weight loss (ICD-10 - R63.4) [employer] Other 11-01-2021 Evaluation note* Encounter Date Diagnosis Assessment Notes Treatment Notes Treatment Clinical Notes Mar, Abdominal cramping (ICD-10 - R10.9) Mar, Diarrhea (ICD-10 - R19.7) [employer] Other 10-07-2021 Evaluation note* Encounter Date Diagnosis [...] Feb, Left hip pain (ICD-10 - M25.552) [employer] Other Evaluation + Plan note No data available for this section [facility] Evaluation noteNo InformationNort [employer] Other Evaluation note* Diagnosis Rectal discharge- Primary Other symptoms involving digestive system [facility] Rectal bleeding- Primary Hemorrhage of rectum and anus Hypothyroidism, adult ([facility]/HCC) Other specified acquired hypothyroidism Vitamin D deficiency BMI 21.0-21.9, adult Heart murmur Undiagnosed cardiac murmurs documented in this encounter [facility] HealthcareEvaluation note* Diagnosis Onset Date Resolution Status Dysuria noneactive [facility] Work Phone: Evaluation note* Diagnosis Hypothyroidism, adult ([facility]/HCC)- Primary Other specified acquired hypothyroidism Heart murmur Undiagnosed cardiac murmurs Obstructive sleep apnea syndrome Obstructive sleep apnea (adult) (pediatric) documented in this encounter [facility] HealthcareEvaluation note* Diagnosis Hypothyroidism, adult ([facility]/HCC)- Primary Other specified acquired hypothyroidism documented in this encounter [facility] HealthcareEvaluation noteNo assessment information [facility] Work Phone: Evaluation note* Diagnosis Onset Date Resolution Status Deformity of right knee joint acute Primary osteoarthritis of right knee acute [facility] Work Phone: History general Narrative - Reported* Type Description Date Medical History high cholesterol Medical History Hypothyroidism Surgical History meniscus repair Surgical History rotator cuff repair Surgical History lipoma removed from right shoul neela Surgical History skin cancer removal from lip Hospitalization History see above [employer] Other History general Narrative - Reported* Type Description Date Medical History high cholesterol Medical History Hypothyroidism Medical History obstructive sleep apnea Surgical History meniscus repair Surgical History rotator cuff repair Surgical History lipoma removed from right shoul neela Surgical History skin cancer removal from lip Hospitalization History see above [employer] Other Hospital Discharge instructions No data available for this section General [facility] Progress note No data available for this section [facility] [place] Reason for referral (narrative)* Consultation (Routine) - Pending Review Specialty Diagnoses / Procedures Referred By Seb díaz Referred To Contact General Surgery Diagnoses Rectal bleeding Procedures AK OFFICE/OUTPATIENT NEW HIGH MDM 60 MINUTES Fay Pascal NP [address] [place] [address] Jose M Santo MD [facility] [employer] [facility] [address] [place] [address] Referral ID Status Reason Start Date Expiration Date Visits Requested Visits Authorized [id number] Pending Review Specialty Services Required 06/27/2023 12/24/2023 1 1 [facility] Summary Purpose Family History No Family History Records Found Relationship Condition Age at Onset Recorded Date/T sarita father Malignant neoplasm of lung Unknown brother Malignant neoplasm of lung Unknown brother Malignant neoplasm of liver Unknown brother Unknown father Unknown family member Unknown Advance Directives No Advanced Directives Records Found Advance Directive Response Recorded Date/ Time Advance Directives No October 04 3:45pm Chief Complaint and Reason for Visit Chief Complaint Poss uti Reason for Visit Dysuria Chief Complaint Poss uti Dysuria Reason for Visit Dysuria Chief Complaint M25.561 - Pain in ri ght knee NEW RT KNEE PAIN NX Chief Complaint M25.561 - Pain in ri ght knee NEW RT KNEE PAIN NX Reason for Visit Deformity of right k nee joint Primary osteoarthritis of right knee Additional Source Comments REASON FOR VISIT (unrecogniz ed section and content) Reason Comments New Patient Clear discharge from rectum INFORMATION SOURCE (unrecogn ized section and content) DATE CREATED AUTHOR 05/17/2022 [facility] DATE CREATED AUTHOR AUTHOR'S ORGANIZ ATION 07/31/2022 [facility] DATE CREATED AUTHOR AUTHOR'S ORGANIZ ATION 08/06/2023 [facility] DATE CREATED AUTHOR AUTHOR'S ORGANIZ ATION 02/20/2024 [facility] DATE CREATED AUTHOR AUTHOR'S ORGANIZ ATION 03/25/2024 [facility] Source Comments (unrecognize d section and content) In the event this informatio n is protected by the Federal Confidentiality of Alcohol and Drug Abuse Patient Records regulations: The Federal rules restrict any use of the information to criminally investigate or prosecute any alcohol or drug abuse patient.[facility] Care Teams (unrecognized sec tion and content) Team Status: Active Member Role Status Dates Fay Pascal Primary Care Provider Active Team Status: Inactive Member Role Status Dates Bright Mccall II, MD Attending Provider Active Start: March 19, 2024 End: March 19, 2024 Team Status: Inactive Member Role Status Dates Bright Mccall II, MD Attending Provider Active Start: March 19, 2024 End: March 19, 2024 Fay Pascal Primary Care Provider Active Sta rt: March 19, 2024 End: March 19, 2024 [employer] Superintendent Relationship Specialty Start Date End Date Phoenix Garner [address] [place] [id number] PCP - General Family Medicine 07/26/22 [employer] Superintendent Relationship Specialty Start Date End Date Phoenix Garner MD [address] [place] [id number] PCP - General Family Medicine 06/18/23 [employer] Superintendent Relationship Specialty Start Date End Date Phoenix Garner MD [address] [place] [id number] PCP - General Family Medicine 06/18/23 [employer] Superintendent Relationship Specialty Start Date End Date Phoenix Garner MD [address] [place] [phone] PCP - General Family Medicine 06/18/23 Team Status: Active Member Role Status Dates Phoenix Garner MD Primary Care Provider Active Team Status: Inactive Member Role Status Dates Phoenix Garner MD Primary Care Provider Active S tart: December 03, 2023 End: December 03, 2023 Christiane Wade APRN Attending Provider Active Start: December 03, 2023 End: December 03, 2023 Team Status: Inactive Member Role Status Dates Christiane Wade APRN Attending Provider Active Start: December 03, 2023 End: December 03, 2023 [employer] Superintendent Relationship Specialty Start Date End Date Phoenix Garner MD [address] [place] [phone] PCP - [facility] Medicine 06/18/23 [employer] Superintendent Relationship Specialty Start Date End Date Phoenix Garner MD [address] [place] [phone] PCP - [facility] 06/18/23 [employer] Superintendent Relationship Specialty Start Date End Date Phoenix Garner MD [address] [place] [id number] PCP - [facility] 06/18/23 Team Status: Active Member Role Status Dates Bright Mccall II, MD Attending Provider Active Start: March 19, 2024 Goals (unrecognized section and content) Goals may be documented in a n alternate section FOR RECORDS PERTAINING TO PATIENTS WHO ARE [...] BE BASED ON THE PRIMARY CLINICAL RECORDS. [facility] [employer] provides no warranty or guarantee of the accuracy or completeness of information in this document.
[2024-04-21 11:29] LABS: Thyroid Stimulating Hormone 9.973 uIU/mL (0.358-3.740)
[2024-04-21 11:52] LABS: Free T4 0.88 ng/dL (0.76-1.46)
== END 2024-04-21 10:23 | disposition home or self-care (01) ==
LOC: LAB 10:24
PROVIDERS: PCP Nurse Practitioner; Visit Provider Nurse Practitioner
DX: E03.9 Hypothyroidism, unspecified (principal)
CPT/HCPCS: 36415; 84439; 84443

== ENCOUNTER 2024-05-11 13:08 | Outpatient (OUT) | payer MEDICARE, SELFPAY ==
--- NOTE | 2024-05-11 13:12 | MM_ITS ---
Patient Name: LITO BONILLA MR#: [id number] : 1955 Exam Date: 05/11/2024 Ordering Doctor: YAJAIRA Pascal CNP RADIOLOGY REPORT PROCEDURE: MM TOMOSYNTHESIS SCREENING BI COMPARISON: MM TOMOSYNTHESIS SCREENING BI, 05/10/2023. MG MAMM SCREEN 3D NEETA CAD, 05/09/2022. INDICATIONS: Screening Calculator Name NCI Breast Cancer Risk Assessment Tool 5 Year Breast Cancer Risk 1.10% Lifetime Breast Cancer Risk 3.70% Personal Breast Cancer No Personal Ovarian Cancer No Treatments None Family Cancers Father with lung cancer at age 43; Brother with liver cancer at age 65; Brother with colon/lung cancer at age 46; Brother with lung cancer at age 74. LOCATION: [facility] BREAST COMPOSITION: There are scattered areas of fibroglandular density. FINDINGS: DIAGNOSTIC CATEGORY 1--NEGATIVE. NO CHANGE FROM COMPARISON ASSESSMENT. RIGHT BREAST: No significant suspicious finding. LEFT BREAST: No significant suspicious finding. RECOMMENDATIONS: ROUTINE MAMMOGRAM AND CLINICAL EVALUATION IN 12 MONTHS. PLEASE NOTE: A NORMAL MAMMOGRAM DOES NOT EXCLUDE THE POSSIBILITY OF BREAST CANCER. A CLINICALLY SUSPICIOUS PALPABLE LUMP SHOULD BE BIOPSIED. Dictated by: Panda Lange MD on 05/11/2024 at 14:20 Approved by: Panda Lange MD on 05/11/2024 at 14:20
== END 2024-05-11 13:09 | disposition home or self-care (01) ==
LOC: MAMMO 13:08
PROVIDERS: PCP Nurse Practitioner; Visit Provider Nurse Practitioner
DX: Z12.31 Encounter for screening mammogram for malignant neoplasm of breast (principal); Z80.1 Family history of malignant neoplasm of trachea, bronchus and lung; Z80.0 Family history of malignant neoplasm of digestive organs; Z80.8 Family history of malignant neoplasm of other organs or systems
CPT/HCPCS: 77063; 77067

== ENCOUNTER 2025-01-12 11:20 | Outpatient (OUT) | payer MEDICARE, SELFPAY ==
--- OUTSIDE RECORDS SUMMARY | 2025-01-12 11:28 | XMS_ITS | CCD ---
Author Organization [facility] Care Team Providers Care Prefitter Name Role Phone Kelsey Pop Unavailable HusseinPanda villalobos Unavailable Panda Santos Unavailable PASCUAL, DR PHOENIX Montaño Primary Care Unavailable TWAN, DR MELYSSA Licona Consulting Unavailable NADERER, DR PHOENIX Montaño [...] Unavailable Pascual, Phoenix Montaño Primary Care Provider LORRAINE CHRISTINE Attending Unavailable PASCUAL, PHOENIX Montaño Primary Care Unavailable Phoenix Garner MD Primary Care Provider FAY PASCAL Primary Care Physician Jose M SANTO Attending Unavailable FAY PASCAL Referring Unavailable Jose M SANTO Attending Unavailable FLORINA Wade Attending Provider MD Bright Mccall II Attending Provider [phone] Phoenix Garner Primary Care Unavailable Fay Pascal Admitting Unavailable Fay Pascal Attending Unavailable Christiane Wade Admitting UnavailChristiane Barth Attending Unavailjessy e NON STAFF Primary Care Unavailable Bright Mccall II Admitting Unavailjessy e Bright Mccall II Attending UnavailFay Queen APRN, NP Primary Care Provide r Phoenix Garner MD Unavailable FAY PASCAL Primary Care Unavailable KALIN GOLDEN Referring Unavailable J CARLOS GOLDENFÉLIX Referring Unavailable FAY PASCAL Primary Care Unavailable CHAIM JEWELL Attending Unavailable Fay Pascal NP Unavailable MELYSSA DICKERSON Attending Unavailable FAY PASCAL Attending Unavailable FAY PASCAL Attending Unavailable Allergies Allergy Classification Reported Allergen(s) Allergy Type Date of Onset Reaction(s) Facility (1 source) No Known Medication Allergies; Translations: [No Known Medication Allergies] Propensity to adverse reactions (disorder) [facility] Repository Medications Current Medications Medication Drug Class(es) Dates Sig (Normalized) Sig (Original) alendronic acid 70 mg oral tablet (7 sources) Bisphosphonate End: 01-07-2024 take 1 tablet by mouth in the morning alendronate (Fosamax) 70 MG tablet Take 70 mg by mouth every 7 (seven) days Take in the morning with a full glass of water, on an empty stomach, and do not take anything else by mouth or lie down for the next 30 min. 01/07/2024 Discontinued (Therapy completed) ascorbic acid 1000 mg oral tablet (7 sources) Vitamin C End: 01-07-2024 take 1 tablet by mouth in the morning Ascorbic Acid (vitamin C) 1000 MG tablet Take 1,000 mg by mouth in the morning. 01/07/2024 Discontinued (Therapy completed) atorvastatin 20 mg oral tablet (7 sources) HMG-CoA Reductase Inhibitor End: 01-07-2024 take 1 tablet by mouth in the morning atorvastatin (Lipitor) 20 MG tablet Take 20 mg by mouth in the morning. 01/07/2024 Discontinued (Therapy completed) Calcium Carb-Cholecalcifer ol (CALCIUM 500 + D PO) (7 sources) End: 01-07-2024 take 2 tablets by mouth once daily in the morning Calcium Carb-Cholecalcifer ol (CALCIUM 500 + D PO) Take 2 tablets by mouth in the morning and at noon 01/07/2024 Discontinued take 2 tablets by mo ut once daily in the morning Calcium Carb-Cholecalciferol (CALCIUM 50 0 + D PO) Take 2 tablets by mouth in the morning and at noon Active take 2 tablets by mo uth once daily in the morning Calcium Carb-Cholecalciferol (CALCIUM 50 0 + D PO) Take 2 tablets by mouth in the morning and at noon 0 Active Calcium Carb-Cholecalciferol (CALCIUM CARBONATE-VITAMIN D3 PO) (2 sources) Calcium Carb-Cholecalciferol (CALCIUM CARBONATE-VITAMIN D3 PO) Take by mouth Active calcium carbonate 600 mg / cholecalciferol 0.01 mg oral tablet (6 sources) Vitamin D Start : 01-06 End: 04-06 take 1 tablet by mouth once in the morning Calcium Carb-Cholecalciferol (Calcium + Vitamin D3) 600-10 MG-MCG tablet Indications: Vitamin D deficiency , Osteoporosis, 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CMS/HCC) Take 1 tablet by mouth in the morning and 1 tablet in the evening. Take with meals. 180 tablet 1 01/07/2024 04/06/2024 Active calcium citrate 250 mg / cholecalciferol 100 unt oral tablet (4 sources) Vitamin D take 1 tablet by mouth once in the morning, then take 1 tablet by mouth once in the evening Calcium Citrate-Vitamin D (Yovanny-Citrate Plus Vitamin D) 250-2.5 MG-MCG tablet Take 1 tablet by mouth in the morning and 1 tablet in the evening. Active calcium lactate (1 source) Calcium Lactate Active ergocalciferol 1.25 mg oral capsule (4 sources) Provitamin D2 Compound take 1 capsule by mouth every week ergocalciferol (Vitamin D-2) 1.25 MG (78468 UT) capsule Take 1.25 mg by mouth 1 (one) time per week 0 Active fluconazole 150 mg oral tablet (1 source) Azole Antifungal Start : 09-10 End: 09-16 fluconazole (DIFLUCAN) 150 MG tablet Indications: Vaginal discharge Take 1 tablet by mouth every 72 hours for 6 days 2 tablet 09/10/2024 09/16/2024 Active levothyroxine sodium 0.075 mg oral tablet (20 sources) l-Thyroxine Start : 12-09 End: 04-12 take 1 tablet by mouth before mealtime levothyroxine (Synthroid, Levoxyl) 75 MCG tablet Indications: Hypothyroidism, adult Take 1 tablet (75 mcg) by mouth in the morning. Take before meals. 90 tablet 01/12/2025 04/12/2025 Active Start: 04-23-2024 End: 07-22-2024 take 1 tablet by mouth before mealtime levothyroxine (Synthroid) 88 MCG tablet Indications: Hypothyroidism, adult (CMS/HCC) Take 1 tablet (88 mcg) by mouth in the morning. Take before meals. 90 tablet 04/23/2024 06/09/2024 Discontinued (Therapy completed) Start: 02-19-2024 End: 11-25-2024 take 1 tablet by mouth before mealtime levothyroxine (Synthroid) 75 MCG tablet Indications: Hypothyroidism, adult (CMS/HCC) Take 1 tablet (75 mcg) by mouth in the morning. Take before meals. 90 tablet 08/27/2024 11/25/2024 Active Start: 01-07-2024 End: 04-06-2024 take 1 tablet by mouth before mealtime levothyroxine (Synthroid) 100 MCG tablet Indications: Hypothyroidism, adult (CMS/HCC) Take 1 tablet (100 mcg) by mouth in the morning. Take before meals. 90 tablet 01/07/2024 02/19/2024 Discontinued (Therapy completed) Start: 12-03-2023 Levothyroxine Active MCG PO December 03, 2023 12:00am Start: 11-26-2023 End: 01-07-2024 take 1 tablet by mouth before mealtime levothyroxine (Synthroid) 88 MCG tablet Indications: Hypothyroidism, adult (CMS/HCC) Take 1 tablet (88 mcg) by mouth in the morning. Take before meals. 30 tablet 1 11/26/2023 01/07/2024 Discontinued (Therapy completed) Start: 07-05-2023 take 1 tablet by genny [...] 0 Active take 1 tablet by genny once daily Levothyroxine Sodium 75 MCG TAKE 1 TABLET BY MOUTH DAILY Oral for 60 Active Comment on above: Take by mouth. omeprazole 40 mg delayed release oral capsule (7 sources) Proton Pump Inhibitor End: take 1 capsule by mouth before mealtime omeprazole (PriLOSEC) [address] capsule Take 40 mg by mouth in the morning. Take before meals. Do not crush or chew.. 01/07/2024 Discontinued (Therapy completed) Probiotic Product (PROBIOTIC DAILY PO) (2 sources) Probiotic Produc t (PROBIOTIC DAILY PO) Take by mouth Active Vitamin D (1 source) Vitamin D [...] Prep Kit 17.5-3.13-1.6 GM/180ML (7 sources) Start: 021 Suprep Bowel Prep Kit 17.5-3.13-1.6 GM/180ML 177 ML DIRECTED AT 4 PM AND 11 PM Orally Twice a day for 1 day(s) September, Not-Taking Triamcinolone (4 sources) Corticosteroid Start: 021 Kenalog -40 mg Feb, 40 mg Start: [...] Classification Problem Date Documented Da te Episodic/Chronic Diabetes mellitus without complication (20 sources) Prediabetes; Translations: [Prediabetes] Onset: 10-25-2021 06-27-2023 Episodic Disorders of lipid metabolism (20 sources) Hyperlipidemia, unspecified; Translations: [Dyslipidemia] Onset: 10-25-2021 06-27-2023 Chronic Diverticulosis and diverticulitis (19 sources) Diverticular disease; Translations: [Diverticulosis of intestine, part unspecified, without perforation or abscess without bleeding] Onset: 01-07-2024 07-05-2023 Chronic Heart valve disorders (6 sources) Aortic incompetence, non-rheumatic ; Translations: [Nonrheumatic aortic (valve) insufficiency] Onset: 01-12-2025 01-12-2025 Chronic Heart valve disorders (20 sources) Heart murmur; Translations: [Cardiac murmur, unspecified] Onset: 06-27-2023 06-27-2023 Episodic Mycoses (1 source) Onychomycosis due to dermatophyte ; Translations: [Tinea unguium] 09-29-2024 Episodic Nutritional deficiencies (20 sources) Vitamin D deficiency, unspecified; Translations: [Vitamin D deficiency] Onset: 06-02-2021 Chronic Osteoarthritis (20 sources) Osteoarthritis of right knee joint; Translations: [Unilateral primary osteoarthritis, right knee] Onset: 06-27-2023 06-27-2023 Chronic Osteoporosis (20 sources) Postmenopausal osteoporosis; Translations: [Age-related osteoporosis without current pathological fracture] Onset: 06-27-2023 06-27-2023 Chronic Other acquired deformities (1 source) Deformity of knee joint; Translations: [Unspecified acquired deformity of right lower leg] 03-19-2024 Episodic Other acquired deformities (1 source) Unspecified acquired deformity of right lower leg; Translations: [Other acquired deformities of knee] 03-19-2024 Episodic Other connective tissue disease (2 sources) Pain in toe; Translations: [Pain in left toe(s)] 09-29-2024 Episodic Other female genital disorders (2 sources) Vaginal discharge; Translations: [Other specified noninflammatory disorders of vagina] 08-20-2024 Episodic Other female genital disorders (1 source) Other specified noninflammatory disorders of vagina; Translations: [Other specified noninflammatory disorders of vagina] Onset: 09-10-2024 Episodic Other gastrointestinal disorders (20 sources) Irritable bowel syndrome; Translations: [Mixed irritable bowel syndrome] Onset: 01-07-2024 05-01-2023 Chronic Other gastrointestinal disorders (5 sources) [...] system and abdomen] Episodic Other liver diseases (20 sources) Lesion of liver; Translations: [Liver disease, unspecified] Onset: 07-15-2023 07-05-2023 Chronic Other liver diseases (1 source) Liver disease, unspecified Onset: 06-20-2021 Resolved: 06-20-2021 Chronic Other liver diseases (1 source) Other specified diseases of liver; Translations: [Other specified diseases of liver] Onset: 07-18-2023 Chronic Other nervous system disorders (1 source) Difficulty walking; Translations: [Difficulty in walking, not elsewhere classified] 09-29-2024 Chronic Other non-traumatic joint disorders (3 sources) Pain in right knee; Translations: [Right knee pain] Onset: 03-19-2024 03-18-2024 Episodic Other nutritional; endocrine; and metabolic disorders (20 sources) Intolerance to lactose; Translations: [Lactose intolerance, unspecified] Onset: 01-07-2024 07-05-2023 Chronic Other nutritional; endocrine; and metabolic disorders (1 source) Lactose intolerance, unspecified Onset: 10-10-2021 Resolved: 10-10-2021 Chronic Other screening for suspected conditions (not mental disorders or infectious disease) (20 sources) Encounter for screening mammogram for malignant neoplasm of breast; Translations: [Patient encounter status] Onset: 05-09-2022 Episodic Other skin disorders (1 source) Dystrophia unguium; Translations: [Nail dystrophy] 09-29-2024 Episodic Residual codes; unclassified (1 source) Sleep apnea; Translations: [Sleep apnea, unspecified] Chronic Residual codes; unclassified (1 source) Daytime somnolence; Translations: [Other hypersomnia] Chronic Residual codes; unclassified (20 sources) Obstructive sleep apnea syndrome; Translations: [Obstructive sleep apnea (adult) (pediatric)] Onset: 01-07-2024 07-05-2023 Chronic Residual codes; unclassified (1 source) [...] MALIG NEOPLASM OTH ORGN/SYS] Onset: 05-17-2022 Episodic Thyroid disorders (20 sources) Acquired hypothyroidism; Translations: [Hypothyroidism, unspecified] Onset: 05-31-2021 Resolved: 10-10-2021 Chronic Unclassified (1 source) Body mass index 20-24 - normal 07-10-2023 Past or Other Problems Problem Classification Problem Date Documented Da te Episodic/Chronic Abdominal hernia (1 source) Ventral hernia without obstruction or gangrene Onset: 2 Resolved: 2 Episodic Abdominal pain (20 sources) Unspecified abdominal pain; Translations: [Abdominal pain] Onset: 1 Resolved: 2 Episodic Esophageal disorders (20 sources) Gastroesophageal reflux disease; Translations: [Gastro-esophageal reflux disease without esophagitis] Onset: 2 Resolved: 4 Chronic Gastrointestinal hemorrhage (20 sources) Rectal hemorrhage; Translations: [Hemorrhage of anus and rectum] Onset: 4 06-27-2023 Episodic Genitourinary symptoms and ill-defined conditions (3 sources) Dysuria; Translations: [Dysuria] Onset: 4 12-03-2023 Episodic Hemorrhoids (19 sources) Hemorrhoids; Translations: [Unspecified hemorrhoids] Onset: 4 07-05-2023 Episodic Miscellaneous mental health disorders (3 sources) Psychophysiologic insomnia; Translations: [Psychophysiologic insomnia] Onset: 2 Resolved: 4 Chronic Mood disorders (17 sources) Mood disorders Onset: 4 Resolved: 5 01-07-2024 Other aftercare (1 source) Other detention (current) drug therapy; Translations: [OTH USP CURRENT DRUG THERAPY] Onset: 2 Episodic Other and unspecified benign neoplasm (1 source) Hemangioma of intra-abdominal structures Onset: 2 Resolved: 2 Episodic Other and unspecified benign neoplasm (19 sources) History of polyp of colon; Translations: [History of colon polyps] Onset: 4 07-05-2023 Episodic Other connective tissue disease (1 source) Trochanteric bursitis, left hip; Translations: [Trochanteric bursitis, left hip M70.62] Onset: 1 Resolved: 1 Episodic Other gastrointestinal disorders (2 sources) Diarrhea, unspecified; Translations: [Diarrhea R19.7] Onset: 1 Resolved: 1 Episodic Other inflammatory condition of skin (20 sources) Lichen simplex chronicus; Translations: [Lichen simplex chronicus] Onset: 4 06-27-2023 Episodic Other non-epithelial cancer of skin (20 sources) Squamous cell carcinoma of skin; Translations: [Squamous cell carcinoma of skin, unspecified] Onset: 4 06-27-2023 Episodic Other non-traumatic joint disorders (1 source) Pain in left hip; Translations: [Left hip pain M25.552] Onset: 1 Resolved: 1 Episodic Other non-traumatic joint disorders (7 sources) Pain in right hip joint; Translations: [Pain in right hip] Onset: 4 06-27-2023 Episodic Other non-traumatic joint disorders (15 sources) Hip pain; Translations: [Pain in right hip] Onset: 4 06-27-2023 Episodic Other nutritional; endocrine; and metabolic disorders (1 source) Abnormal weight loss Onset: 1 Resolved: 1 Episodic Residual codes; unclassified (20 sources) Body mass index 20-24 - normal; Translations: [Body mass index (BMI) 21.0-21.9, adult] Onset: 4 06-27-2023 Episodic Results Test Name Value Interpretation Reference Range Facility Consulton 09-23-2024 Consult [id number] Shabana Bonilla 1955 F Date Provider Department Center 09/23/2024 CHAIM GABRIEL [facility] SURG Second Fl No family history on file Level of Service:46048 NC OFFICE/OUTPATIENT NEW LOW MDM 30 MINUTES Reason for Visit and Comments: Rectal Bleeding [892753] Normal [facility] MHPT VAGINITIS DNA PROBEon 0 09-10-2024 PT ALEKSANDR Negative NEG [facility] Comment on above: for Aleksandr sp. Method of testing is a DNA probe intended for detection and identification of Aleksandr species, Gardnerella vaginalis, and Trichomonas vaginalis nucleic acid in vaginal fluid specimens from patients with symptoms of vaginitis/vaginosis. MHPT GARDNERELLA Negative NEG [facility] Comment on above: for Gardnerella vagi nalis [facility] Comment on above: for Trichomonas Vagi nalis Original Ordering Pr davyer: KALIN VLADIMIRMacho [facility] Vaginitis DNA Probeon 2024 Aleksandr species Negative NEGATIVE [facility] Comment on above: for Aleksandr sp. Method of testing is a DNA probe intended for detection and identification of Aleksandr species, Gardnerella vaginalis, and Trichomonas vaginalis nucleic acid in vaginal fluid specimens from patients with symptoms of vaginitis/vaginosis. GARDNERELLA VAGINALIS Negative NEGATIVE [facility] Comment on above: for Gardnerella vagi nalis Source .VAGINAL SWAB [facility] Trichomonas Negative NEGATIVE [facility] Comment on above: for Trichomonas Vagi nalis [facility] Aleksandr Negative Normal [facility] Comment on above: Result Comment: for Aleksandr sp. Method of testing is a DNA probe intended for detection and identification of Aleksandr species, Gardnerella vaginalis, and Trichomonas vaginalis nucleic acid in vaginal fluid specimens from patients with symptoms of vaginitis/vaginosis. Performed By: #### V AGP #### [address] [id number] Wound Specialist: Daniel Dyer MD [facility] [address] [place] [address] [place] [address] Wound Specialist: Panda Carbone MD Gardnerella Negative Normal [facility] Comment on above: Result Comment: for Gardnerella vaginalis Performed By: #### V AGP #### [address] [id number] Wound Specialist: Daniel Dyer MD [facility] [address] [place] [address] [place] [address] Wound Specialist: Panda Carbone MD Trichomonas Negative Normal [facility] Comment on above: Result Comment: for Trichomonas Vaginalis Performed By: #### V AGP #### [address] [place] [address] Wound Specialist: Daniel Dyer MD [facility] [address] [place] [address] [place] [address] Wound Specialist: Panda Carbone MD Source .VAGINAL SWAB Normal [facility] Comment on above: Performed By: #### V AGP #### [address] [address] Wound Specialist: Daniel Dyer MD [facility] [address] [place] [address] [place] [address] Wound Specialist: Panda Carbone MD [facility] VAGINITIS DNA PROBEon 0 08-21-2024 Interpretation and review of laboratory results Abnormal [facility] ALEKSANDR Negative NEG [facility] Comment on above: for Aleksandr sp. Method of testing is a DNA probe intended for detection and identification of Aleksandr species, Gardnerella vaginalis, and Trichomonas vaginalis nucleic acid in vaginal fluid specimens from patients with symptoms of vaginitis/vaginosis. PT GARDNERELLA Positive Abnormal NEG [facility] Comment on above: for Gardnerella vagi nalis [facility] SOURCE .VAGINAL SWAB [facility] TRICHOMONAS Negative [facility] Comment on above: for Trichomonas Vagi nalis Original Ordering Pr ovider: K[facility]IN CHONG [facility] Vaginitis DNA Probeon 2024 Aleksandr Negative Normal NEG [facility] Comment on above: Result Comment: for Aleksandr sp. Method of testing is a DNA probe intended for detection and identification of Aleksandr species, Gardnerella vaginalis, and Trichomonas vaginalis nucleic acid in vaginal fluid specimens from patients with symptoms of vaginitis/vaginosis. Performed By: #### V AGP #### [address] [address] Wound Specialist: Daniel Dyer MD [facility] [address] [place] [address] [place] [address] Wound Specialist: Panda Carbone MD Gardnerella Positive Abnormal NEG [facility] Comment on above: Result Comment: for Gardnerella vaginalis Performed By: #### V AGP #### [facility] [address] [place] [address] Wound Specialist: Daniel Dyer MD [facility] [address] [place] [address] Wound Specialist: Panda Carbone MD Trichomonas Negative Normal NEG [facility] Comment on above: Result Comment: for Trichomonas Vaginalis Performed By: #### V AGP #### [facility] [address] [place] [address] Wound Specialist: Daniel Dyer MD [facility] [address] [place] [address] Wound Specialist: Panda Carbone MD Vaginitis DNA Probeon 2024 Source .VAGINAL SWAB Normal [facility] Comment on above: Performed By: #### V AGP #### [address] [address] Wound Specialist: Daniel Dyer MD [facility] [address] [place] [address] [place] [address] Wound Specialist: Panda Carbone MD ALL THYROID STIM HORMONEon 1 06-22-2023 Interpretation and review of laboratory results Abnormal [facility] TSH Qn 9.973 m[IU]/L High [facility] XR knee RT 4V*on 03-19-2024 XR knee RT 4V* [facility] [address] [place] [address] XRay Report Signed Patient: Alesha Bonilla MR#: [id number] 57 : 1955 Acct:[id number] Age/Sex: 68 / F ADM Date: 03/19/24 Loc: [facility] Room: Type: [facility] Attending Dr: Bright Mccall II, MD Copies to: Bright Mccall MD Ordering Provider: Bright Mccall MD Date of Service: 03/19/24 XR/XR knee RT 4V*: M25.561 - Pain in right knee ([id number]) XR/XR pelvis 1-2V: M25.561 - Pain in right knee Single view of the pelvis plain film HISTORY: RIGHT knee deformity for 15 years COMPARISON: None ACUTE FINDINGS: None BONY ALIGNMENT: Adequate SOFT TISSUES: Unremarkable DEGENERATIVE CHANGE:Unremarkable INTRAPELVIC STRUCTURES: Unremarkable POSTSURGICAL CHANGES:None XR/XR pelvis 1-2V IMPRESSION:Unremarkable exam. 4 views RIGHT knee Valgus deformity. Kwny-py-chnm contact lateral degenerative change. Small joint effusion. No acute bony findings. IMPRESSION: Valgus deformity of the RIGHT knee. Extensive yazx-hm-xijz lateral degeneration. Impression dictated by: Dru Hu M.D.03/19/2024 3:48 PM Dictation Location: [place] [address] Transcribed By: [facility] 03/19/24 1548 Dictated By: Dru Hu DO 03/19/24 1547 Signed By: 03/19/24 1548 Normal [facility] Urine Cultureon 12-03-2023 Bacteria identified Cx Nom (U) <9,000 colonies/ml mixed bacterial skin contaminants 2 Days PERFORMED BY: [place] [address] PATHOLOGIST BLOCK HANDLER DON BOSTON M.D. Normal [facility] Comment on above: Performed By: #### C UU #### [address] Outside Colonoscopyon 2023 Outside Colonoscopy [id number]#[id number] Normal [facility] Reminderson 08-01-2023 Reminders - From: Siobhan Jernigan LPN To: GSN - Clinical; Sent: 08/01/2023 14:37:14 EDT Show up: 07/02/2033 07:00:00 EST Subject: colonoscopy recall Due Date/Time: 07/30/2033 07:00:00 EDT Reminder/Recall Patient due for screening colonoscopy 07/30/2033. Normal [facility] Transfer Inon 07-19-2023 Transfer In [id number] Normal [facility] Blood Urea Nitrogenon 2023 Urea nitrogen [Mass/Vol] 16 mg/dL Normal 7-25 [facility] Comment on above: Order Comment: STAT FOR CT Performed By: #### B UN, CREAT #### [address] abdomen pelvis w conon CT abdomen pelvis w con [facility] [address] [place] [address] CT Scan Report Signed Patient: Alesha Bonilla MR#: [id number] 57 : 1955 Acct:[id number] Age/Sex: 68 / F ADM Date: 07/18/23 Loc: CT Room: Type: [facility] Attending Dr: Fay Pascal Copies [...] Impression dictated by: Jose Miguel Cox Jr., D.OBlanca07/18/2023 11:49 AM Dictation Location: [place] [address] Transcribed By: [facility] 07/18/23 1149 Dictated By: Jose Miguel Cox Jr, DO 07/18/23 1144 Signed By: 07/18/23 1149 Normal [facility] Creatinineon 07-18-2023 Creatinine [Mass/Vol] 0.82 mg/dL Normal 0.60-1.20 [facility] Comment on above: Order Comment: STAT FOR CT Performed By: #### B UN, CREAT #### [facility] [address] [place] [address] GFR/1.73 sq M.predicted MDRD (S/P/Bld) [Vol rate/Area] mL/min/{1.73_m2} Normal [facility] Comment on above: Order Comment: STAT FOR CT Result Comment: PERF ORMED BY: [place] [address] PATHOLOGIST BLOCK HANDLER DON BOSTON M.D. Performed By: #### B UN, CREAT #### [facility] [address] [place], [place] [id number] [facility] Facesheeton 07-11-2023 Facesheet [id number] Normal [facility] Ambulatory Visit Summaryon 0 07-10-2023 Ambulatory Visit [...] for choosing us for your care. Normal [facility] Physician Referralon 024 Physician Referral [id number]#[id number] [facility] ALL CBC WITH AUTO DIFFon BASOPHILS ABSOLUTE AUTO 0.0 [facility] Basophils/100 WBC (Bld) 0.8 % 0.2 - 2.0 % [facility] Eosinophils/100 WBC (Bld) 1.2 % 0.9 - 7.0 % [facility] Erythrocyte distribution width (RBC) [Ratio] 12.5 % 11.0 - 15.0 % [facility] Hematocrit (Bld) [Volume fraction] 39.2 % 36.0 - 48.0 % [facility] Hemoglobin (Bld) [Mass/Vol] 12.9 g/dL 12.0 - 16.0 g/dL [facility] IMMATURE GRANULOCYTES ABS AUTO 0.01 [facility] Immature granulocytes/100 WBC (Bld) 0.2 % 0.0 - 0.5 % [facility] Interpretation and review of laboratory results Abnormal [facility] LYMPHOCYTES ABSOLUTE AUTO 0.7 Low [facility] Lymphocytes/100 WBC (Bld) 14.3 % Low 20.5 - 60.0 % [facility] MCH (RBC) [Entitic mass] 29.9 pg 26.7 - 34.0 pg [facility] MCHC (RBC) [Mass/Vol] 32.9 g/dL 29.9 - 35.2 g/dL [facility] MCV (RBC) [Entitic vol] 90.7 fL 81.0 - 99.0 fL [facility] MONOCYTES ABSOLUTE AUTO 0.5 [facility] Monocytes/100 WBC (Bld) 9.4 % 1.7 - 12.0 % [facility] NEUTROPHILS ABSOLUTE AUTO 3.9 [facility] Neutrophils/100 WBC (Bld) 74.1 % 43.0 - 75.0 % [facility] Platelet mean volume (Bld) [Entitic vol] 10.2 fL 9.5 - 13.5 fL [facility] TBH EO # 0.1 [facility] PLT 181 [facility] RBC 4.32 [facility] WBC 5.2 [facility] CNOVon 07-30-2022 CNOV Office Visit (MARCO A ) ALESHA BONILLA ([id number]) 1955 F Date Time Provider Department 07/30/22 10:00 LORRAINE CROW During your visit today, we recorded the following information about you: Temperature Pulse Blood pressure Weight 97.8 degrees 65/minute 109/59 65.8 kg Height 1.676 m Lorraine Christine PA-C 07/30/2022 11:25 AM Signed COLORECTAL [...] and colonoscopy ( brought to front office java developer to be scanned in) were completed and [...] liver disea (more content not included)... Normal [facility] HISTORY PHYSICALon 3 HISTORY PHYSICAL HNO ID: [id number] Author: Lorraine Christine PA-C Service: ? Author Type: Physician Tire Builder Heavy Service Type: HANDP Filed: 07/30/2022 11:25 AM Note [...] and colonoscopy ( brought to front office java developer to be scanned in) were completed and [...] cord stimula (more content not included)... Normal [facility] MG MAMM SCREEN 3D NEETA CADon 05-09-2022 MG MAMM SCREEN 3D NEETA CAD Patient: ALESHA BONILLA Exam Date: 05/09/2022 : 1955 Gender:F Ordering : DR PHOENIX GARNER . Admission #: [id number] Family : Order #: [id number] CLICK HERE TO VIEW EXAM RADIOLOGY REPORT [...] lung cancer at age 74. LOCATION: [facility] BREAST COMPOSITION: Scattered areas fibroglandular density. [...] PALPABLE LUMP SHOULD BE BIOPSIED. Dictated by: Melyssa Johnson M.D. on 05/09/2022 at 10:53 Approved by: Melyssa Johnson M.D. on 05/09/2022 at 10:59 Normal [facility] CBC AUTO DIFFon 10-18-2021 BASO # 0.0 103/ul Normal 0.0-0.1 [facility] Comment on above: Performed By: #### C BC #### [facility] [address] [address] [address] William García Basophils/100 WBC (Bld) 0.8 % Normal 0.2-2.0 [facility] Comment on above: Performed By: #### C BC #### [facility] [address] [place] [address] Dr. William García EO # 0.1 103/ul Normal 0.0-0.7 [facility] Comment on above: Performed By: #### C BC #### [facility] [address] [place] [address] Dr. William García Eosinophils/100 WBC (Bld) 2.0 % Normal 0.9-7.0 [facility] Comment on above: Performed By: #### C BC #### [facility] [address] [place] [address] Dr. William García Erythrocyte distribution width (RBC) [Ratio] 12.7 % Normal 11.0-15.0 [facility] Comment on above: Performed By: #### C BC #### [facility] [address] [place] [address] Dr. William García Hematocrit (Bld) [Volume fraction] 39.2 % Normal 36.0-48.0 [facility] Comment on above: Performed By: #### C BC #### [facility] [address] [place] [address] Dr. William García Hemoglobin (Bld) [Mass/Vol] 12.8 g/dL Normal 12.0-16.0 [facility] Comment on above: Performed By: #### C BC #### [facility] [address] [place] [address] Dr. William García IG # 0.01 10e3/ul Normal 0.00-0.03 [facility] Comment on above: Performed By: #### C BC #### [facility] [address] [place] [address] Dr. William García IG % 0.2 % Normal 0.0-0.[address] [facility] Comment on above: Performed By: #### C BC #### [facility] [address] [place] [address] Dr. William García LYMPH # 0.9 103/ul Critically low 1.2-3.8 [facility] Comment on above: Performed By: #### C BC #### [facility] [address] [place] [address] Dr. William García Lymphocytes/100 WBC (Bld) 17.4 % Critically low 20.5-60.0 [facility] Comment on above: Performed By: #### C BC #### [facility] [address] [place] [address] Dr. William García MANUAL DIFF REQ NO Normal [facility] Comment on above: Performed By: #### C BC #### [facility] [address] [place] [address] Dr. William García MCH (RBC) [Entitic mass] 30.0 pg Normal 26.7-34.[address] [facility] Comment on above: Performed By: #### C BC #### [facility] [address] [place] [address] Dr. William García MCHC (RBC) [Mass/Vol] 32.7 g/dL Normal 29.9-35.[address] [facility] Comment on above: Performed By: #### C BC #### [facility] [address] [place] [address] Dr. William García MCV (RBC) [Entitic vol] 91.8 fL Normal 81.0-99.0 [facility] Comment on above: Performed By: #### C BC #### [facility] [address] [place] [address] Dr. William García MONO # 0.5 103/ul Normal 0.3-0.[address] [facility] Comment on above: Performed By: #### C BC #### [facility] [address] [place] [address] Dr. William García Monocytes/100 WBC (Bld) 10.7 % Normal 1.7-12.[address] [facility] Comment on above: Performed By: #### C BC #### [facility] [address] [place] [address] Dr. William García NEUT # 3.5 103/ul Normal 1.4-6.[address] [facility] Comment on above: Performed By: #### C BC #### [facility] [address] [address] [address] William García Neutrophils/100 WBC (Bld) 68.9 % Normal 43.0-75.0 [facility] Comment on above: Performed By: #### C BC #### [facility] [address] [address] [address] William García Platelet mean volume (Bld) [Entitic vol] 10.3 fL Normal 9.5-13.[address] [facility] Comment on above: Performed By: #### C BC #### [facility] [address] [address] [address] William García PLT 189 103/ul Normal 150-[address] [facility] Comment on above: Performed By: #### C BC #### [facility] [address] [address] [address] William García RBC 4.27 106/ul Normal 4.20-5.40 [facility] Comment on above: Performed By: #### C BC #### [facility] [address] [address] [address] William García WBC 5.1 103/ul Normal 4.0-11.0 [facility] Comment on above: Performed By: #### C BC #### [facility] [address] [address] [address] William García FREE T3on 10-18-2021 FREE T3 2.63 pg/mlL Normal 2.18-3.98 [facility] Comment on above: Performed By: #### F T3, TSH, AST, LIPID, ALT, BMP ####[facility] [address] [place], [place] [address]PnDr. William García FREE T4on 10-18-2021 Free T4 [Mass/Vol] 1.42 ng/dL Normal 0.76-1.46 [facility] Comment on above: Performed By: #### F T4, VITAD #### [facility] [address] [address] [address] William García GLYCOHEMOGLOBIN A1Con 2021 ADA RECOMMENDATION SEE BELOW Normal [facility] Comment on above: Result Comment: ADA RECOMMENDED LIMIT 4.0 - 6.0 ADA THERAPEUTIC TARGET < 7.0 ACTION SUGGESTED > 7.0 Performed By: #### A 1C #### [facility] [address] [address] [address] William García Glucose [Mass/Vol] 105 mg/dL Normal [facility] Comment on above: Performed By: #### A 1C #### [facility] [address] [address] [address] William García HbA1c (Bld) [Mass fraction] 5.3 % Normal 4.5-6.2 [facility] Comment on above: Performed By: #### A 1C #### [facility] [address] [address] [address] William García LIPID PROFILEon 10-18-2021 CHOL-HDL RATIO NORM SEE BELOW Normal [facility] Comment on above: Result Comment: 3.3 - 4.4 LOW RISK 4.4 - 7.1 AVERAGE RISK 7.1 - 11.0 MODERATE RISK >11.0 HIGH RISK Performed By: #### F T3, TSH, AST, LIPID, ALT, BMP ####[facility] [address] [id number] García Cholesterol [Mass/Vol] 222 mg/dL Critically high <=200 [facility] Comment on above: Performed By: #### F T3, TSH, AST, LIPID, ALT, BMP ####[facility] [address] [id number] García Cholesterol in HDL [Mass/Vol] 76 mg/dL Critically high 40-60 [facility] Comment on above: Performed By: #### F T3, TSH, AST, LIPID, ALT, BMP ####[facility] [address] [id number] García Cholesterol in LDL [Mass/Vol] 136.4 mg/dL Normal [facility] Comment on above: Performed By: #### F T3, TSH, AST, LIPID, ALT, BMP ####[facility] [address] [id number] García Cholesterol.total/ Cholesterol in HDL [Mass ratio] 2.9 {ratio} Normal [facility] Comment on above: Performed By: #### F T3, TSH, AST, LIPID, ALT, BMP ####[facility] [address] [address]Dr. William García HDL NORMAL > or = 60 mg/dl - LO W CARDIOVASCULAR RISK <40 mg/dl - HIGH CARDIOVASCULAR RISK Normal [facility] Comment on above: Performed By: #### F T3, TSH, AST, LIPID, ALT, BMP ####[facility] [address] [address]Dr. William García LDL CALC NORMAL SEE BELOW Normal [facility] Comment on above: Result Comment: <100 mg/dl OPTIMAL 100 - 129 mg/dl NEAR OR ABOVE OPTIMAL 130 - 159 mg/dl BORDERLINE HIGH 160 - 189 mg/dl HIGH >190 mg/dl VERY HIGH Performed By: #### F T3, TSH, AST, LIPID, ALT, BMP ####[facility] [address] [address]Dr. William García Triglyceride [Mass/Vol] 48 mg/dL Normal <=150 [facility] Comment on above: Performed By: #### F T3, TSH, AST, LIPID, ALT, BMP ####[facility] [address] [address]Dr. William García VLDL CALC 9.6 mg/dL Normal [facility] Comment on above: Performed By: #### F T3, TSH, AST, LIPID, ALT, BMP ####[facility] [address] [address]Dr. William García PROF CHEM 8 (BAS METB)on Anion gap [Moles/Vol] 11.6 mmol/L Normal [facility] Comment on above: Performed By: #### F T3, TSH, AST, LIPID, ALT, BMP ####[facility] [address] [address]Dr. William García Calcium [Mass/Vol] 9.0 mg/dL Normal 8.5-10.1 [facility] Comment on above: Performed By: #### F T3, TSH, AST, LIPID, ALT, BMP ####[facility] [address] [address]Dr. William García Chloride [Moles/Vol] 106 mmol/L Normal 98-[address] [facility] Comment on above: Performed By: #### F T3, TSH, AST, LIPID, ALT, BMP ####[facility] [address] [address]Dr. William García CO2 [Moles/Vol] 28.4 mmol/L Normal 21.0-32.0 [facility] Comment on above: Performed By: #### F T3, TSH, AST, LIPID, ALT, BMP ####[facility] [address] [address]Dr. William García Creatinine [Mass/Vol] 0.64 mg/dL Normal 0.55-1.02 [facility] Comment on above: Performed By: #### F T3, TSH, AST, LIPID, ALT, BMP ####[facility] [address] [place], [place] [address]Dr. William García EGFR-AF LATVIAN >60 Normal >=60 [facility] Comment on above: Performed By: #### F T3, TSH, AST, LIPID, ALT, BMP ####[facility] [address] [place], [place] [address]Dr. William García EGFR-NON AF LATVIAN >60 Normal >=60 [facility] Comment on above: Performed By: #### F T3, TSH, AST, LIPID, ALT, BMP ####[facility] [address] [place], [place] [address]Dr. William García Glucose [Mass/Vol] 87 mg/dL Normal 74-106 [facility] Comment on above: Performed By: #### F T3, TSH, AST, LIPID, ALT, BMP ####[facility] [address] [place], [place] [address]Dr. William García Potassium [Moles/Vol] 4.0 mmol/L Normal 3.5-5.[address] [facility] Comment on above: Performed By: #### F T3, TSH, AST, LIPID, ALT, BMP ####[facility] [address] [address]Dr. William García Sodium [Moles/Vol] 142 mmol/L Normal 136-145 [facility] Comment on above: Performed By: #### F T3, TSH, AST, LIPID, ALT, BMP ####[facility] [address] [address]Dr. William García Urea nitrogen [Mass/Vol] 14.0 mg/dL Normal 7.0-18.0 [facility] Comment on above: Performed By: #### F T3, TSH, AST, LIPID, ALT, BMP ####[facility] [address] [address]Dr. William García Urea nitrogen/Creatinin e [Mass ratio] 21.9 mg/mg Normal [facility] Comment on above: Performed By: #### F T3, TSH, AST, LIPID, ALT, BMP ####[facility] [address] [address]Dr. William García SGOTon 10-18-2021 AST [Catalytic activity/Vol] 18 U/L Normal 15-37 [facility] Comment on above: Performed By: #### F T3, TSH, AST, LIPID, ALT, BMP #### [facility] [address] [address] DrBlanca García SGPTon 10-18-2021 ALT [Catalytic activity/Vol] 24 U/L Normal 14-59 [facility] Comment on above: Performed By: #### F T3, TSH, AST, LIPID, ALT, BMP ####[facility] [address] [address]Dr. William García TSHon 10-18-2021 TSH 0.729 uIU/mL Normal 0.358-3.740 [facility] Comment on above: Performed By: #### F T3, TSH, AST, LIPID, ALT, BMP ####[facility] [address] [address]Dr. William García TSH RANGE SEE BELOW Normal [facility] Comment on above: Result Comment: <0.3 4 UIU/ml HYPERTHYROID 0.34-5.60 UIU/ml EUTHYROID >5.60 UIU/ml HYPOTHYROID Performed By: #### F T3, TSH, AST, LIPID, ALT, BMP ####[facility] [address] [place], [place] [address]MxDr. William García VITAMIN D 25 OHon 10-18-2021 VIT D 25-OH 25.2 ng/mL Normal [facility] Comment on above: Performed By: #### F T4, VITAD #### [facility] [address] [address] [address] William García VIT D RANGES SEE BELOW Normal [facility] Comment on above: Result Comment: <20 ng/mL Vit D deficient 20 - <30 ng/mL Vit D insufficient 30 - 100 ng/mL Vit D sufficient >100 ng/mL Potential Toxicity Performed By: #### F T4, VITAD #### [facility] [address] [address] [address] William García FREE T3 LABCORPon 06-01-2021 Triiodothyronine (T3) Free 2.5 pg/mL Normal 2.0-4.[address] [facility] Comment on above: Performed By: #### F T3LC #### [facility] [address] [address] [address] William García VIT D 25-OH LABCORPon 2021 Vitamin D, 25-Hydroxy 23.2 ng/mL Critically low 30.0-100.[address] [facility] Comment on above: Result Comment: Melissa min D deficiency has been defined by the [place] of [employer] and an Endocrine Society practice guideline as a level of serum 25-OH vitamin D less than 20 ng/mL (1,2). The Endocrine Society went on to further define vitamin D insufficiency as a level between 21 and 29 ng/mL (2). 1. IOM ([place]). 2010. Dietary reference intakes for calcium and D. [place]: The National Academies Press. 2. Ashley MF, Nicole NC, Mac ALMEIDA, et al. Evaluation, treatment, and prevention of vitamin D deficiency: an Endocrine Society clinical practice guideline. JCEM. 2010; 96(7):3171-30. Performed By: #### V ITADLC #### [facility] [address] [place] [address] Dr. William García FREE T4on 05-31-2021 Free T4 [Mass/Vol] 0.96 ng/dL Normal 0.78-2.19 [facility] Comment on above: Performed By: #### F T4 #### [facility] [address] [place] [address] Dr. William García TSHon 05-31-2021 TSH 9.014 uIU/mL Critically high 0.470-4.680 [facility] Comment on above: Performed By: #### T SH #### [facility] [address] [place] [address] Dr. William García TSH RANGE SEE BELOW Normal [facility] Comment on above: Result Comment: <0.3 4 UIU/ml HYPERTHYROID 0.34-5.60 UIU/ml EUTHYROID >5.60 UIU/ml HYPOTHYROID Performed By: #### T SH #### [facility] [address] [place] [address] Dr. William García Vital Signs Date Time Vital Sign Value Performing Clinician Facility 01-12-2025 10:06-0400 Body mass index (BMI) [Ratio] 22.11 kg/m2 Fay Pascal [employer] Work Phone: [facility] 01-12-2025 10:06-0400 Body temperature 98.1 [degF] Fay Pascal [employer] Work Phone: [facility] 01-12-2025 10:06-0400 Body weight 62.14 kg Fay Pascal [employer] Work Phone: [facility] 01-12-2025 10:06-0400 Diastolic blood pressure 66 mm[Hg] Fay aPscal [employer] Work Phone: [facility] 01-12-2025 10:06-0400 Heart rate 84 /min Fay Pascal [employer] Work Phone: [facility] 01-12-2025 10:06-0400 Respiratory rate 18 /min Fay Naida [employer] Work Phone: [facility] 01-12-2025 10:06-0400 SaO2% (BldA) [Mass fraction] 99 % Fay Naida [employer] Work Phone: [facility] 01-12-2025 10:06-0400 Systolic blood pressure 94 mm[Hg] Fay Pascal [employer] Work Phone: [facility] 09-29-2024 09:14-0400 Body height 167.6 cm Melyssajoel Dickerson DPM Work Phone: [facility] 09-29-2024 09:14-0400 Body mass index (BMI) [Ratio] 22.11 kg/m2 Melyssajoel Dickerson DPM Work Phone: [facility] 09-29-2024 09:14-0400 Body weight 62.14 kg Melyssajoel Dickerson DPM Work Phone: [facility] 03-18-2024 09:17-0400 Body height 167.64 cm MD Bright Mccall II Work Phone: [facility] 03-18-2024 09:17-0400 Body mass index (BMI) [Ratio] 21.9 kg/m2 MD Bright Mccall II Work Phone: [facility] 03-18-2024 09:17-0400 Body weight 61.68 kg MD Bright Mccall II Work Phone: [facility] 02-19-2024 09:00-0400 Body height 167.6 cm Fay Pascal [employer] Work Phone: [facility] 02-19-2024 09:00-0400 Body mass index (BMI) [Ratio] 22.21 kg/m2 Fay Pascal [employer] Work Phone: [facility] 02-19-2024 09:00-0400 Body temperature 98.1 [degF] Fay Pascal [employer] Work Phone: [facility] 02-19-2024 09:00-0400 Body weight 62.41 kg Fay Aichholz [employer] Work Phone: [facility] 02-19-2024 09:00-0400 Diastolic blood pressure 60 mm[Hg] Fay Aichholz [employer] Work Phone: [facility] 02-19-2024 09:00-0400 Heart rate 59 /min Fay Aichholz [employer] Work Phone: [facility] 02-19-2024 09:00-0400 Respiratory rate 19 /min Fay Aichholz [employer] Work Phone: [facility] 02-19-2024 09:00-0400 SaO2% (BldA) [Mass fraction] 98 % Fay Aichholz [employer] Work Phone: [facility] 02-19-2024 09:00-0400 Systolic blood pressure 88 mm[Hg] Fay Aichholz [employer] Work Phone: [facility] 01-07-2024 10:37-0400 Body height 167.6 cm Fay Aichholz [employer] Work Phone: [facility] 01-07-2024 10:37-0400 Body mass index (BMI) [Ratio] 21.82 kg/m2 Fay Aichholz [employer] Work Phone: [facility] 01-07-2024 10:37-0400 Body temperature 97.5 [degF] Fay Aichholz [employer] Work Phone: [facility] 01-07-2024 10:37-0400 Body weight 61.33 kg Fay Aichholz [employer] Work Phone: [facility] 01-07-2024 10:37-0400 Diastolic blood pressure 76 mm[Hg] Fay Aichholz [employer] Work Phone: [facility] 01-07-2024 10:37-0400 Heart rate 61 /min Fay Aichholz [employer] Work Phone: [facility] 01-07-2024 10:37-0400 Respiratory rate 18 /min Fay Pascal [employer] Work Phone: [facility] 01-07-2024 10:37-0400 SaO2% (BldA) [Mass fraction] 98 % Fay Pascal [employer] Work Phone: [facility] 01-07-2024 10:37-0400 Systolic blood pressure 102 mm[Hg] Fay Pascal [employer] Work Phone: [facility] 12-03-2023 17:43-0400 Body height 167.64 cm [facility] 12-03-2023 17:43-0400 Body mass index (BMI) [Ratio] 21.7 kg/m2 [facility] 12-03-2023 17:43-0400 Body temperature 97.8 [degF] [facility] 12-03-2023 17:43-0400 Body weight 60.89 kg [facility] 12-03-2023 17:43-0400 Diastolic blood pressure 88 mm[Hg] [facility] 12-03-2023 17:43-0400 Heart rate 86 /min [facility] 12-03-2023 17:43-0400 Respiratory rate 16 /min [facility] 12-03-2023 17:43-0400 SaO2% (BldA) [Mass fraction] 96 % [facility] 12-03-2023 17:43-0400 Systolic blood pressure 126 mm[Hg] [facility] 07-10-2023 14:08-0500 Blood Pressure Location Jose M SANTO [facility] 07-10-2023 14:08-0500 Diastolic blood pressure 70 mm[Hg] Jose M SANTO [facility] 07-10-2023 14:08-0500 Heart rate 74 /min Jose M SANTO [facility] 07-10-2023 14:08-0500 Respiratory rate 16 /min Jose M SANTO [facility] [place] 07-10-2023 14:08-0500 Systolic blood pressure 114 mm[Hg] Jose M SANTO [facility] [place] 06-27-2023 09:43-0500 Body height 167.6 cm Fay Naida [employer] Work Phone: [facility] 06-27-2023 09:43-0500 Body mass index (BMI) [Ratio] 21.89 kg/m2 Fay Federicaz [employer] Work Phone: [facility] 06-27-2023 09:43-0500 Body temperature 97.11 [degF] Fay Federicaz [employer] Work Phone: [facility] 06-27-2023 09:43-0500 Body weight 61.51 kg Fay Federicaz [employer] Work Phone: [facility] 06-27-2023 09:43-0500 Diastolic blood pressure 62 mm[Hg] Fay Federicaz [employer] Work Phone: [facility] 06-27-2023 09:43-0500 Heart rate 67 /min Fay Federicaz [employer] Work Phone: [facility] 06-27-2023 09:43-0500 Respiratory rate 18 /min Fay Federicaz [employer] Work Phone: [facility] 06-27-2023 09:43-0500 SaO2% (BldA) [Mass fraction] 97 % Fay Federicaz [employer] Work Phone: [facility] 06-27-2023 09:43-0500 Systolic blood pressure 98 mm[Hg] Fay Aichholz [employer] Work Phone: [facility] 07-30-2022 09:36-0400 Body height 167.6 cm Lorraine Christine PA-C Work Phone: [facility] 07-30-2022 09:36-0400 Body temperature 97.81 [degF] Lorraine Sankovic PA-C Work Phone: [facility] 07-30-2022 09:36-0400 Body weight 65.77 kg Lorraine Sankovic PA-C Work Phone: [facility] 07-30-2022 09:36-0400 Diastolic blood pressure 59 mm[Hg] Lorraine Sankovic PA-C Work Phone: [facility] 07-30-2022 09:36-0400 Heart rate 65 /min Lorraine Sankovic PA-C Work Phone: [facility] 07-30-2022 09:36-0400 SaO2% (BldA) [Mass fraction] 98 % Lorraine Sankovic PA-C Work Phone: [facility] 07-30-2022 09:36-0400 Systolic blood pressure 109 mm[Hg] Lorraine Abdirahmankovic PA-C Work Phone: [facility] 10-10-2021 10:30-0400 Body height 167.64 cm Panda Santos Other [employer] Other 10-10-2021 10:30-0400 Body mass index (BMI) [Ratio] 22.27 kg/m2 Panda Santos Other [employer] Other 10-10-2021 10:30-0400 Body temperature 96.4 [degF] Panda Santos Other [employer] Other 10-10-2021 10:30-0400 Body weight 62.6 kg Panda Santos Other [employer] Other 10-10-2021 10:30-0400 Diastolic blood pressure 68 mm[Hg] Panda Santos Other [employer] Other 10-10-2021 10:30-0400 SaO2% (BldA) [Mass fraction] 99 % Panda Santos Other [employer] Other 10-10-2021 10:30-0400 Systolic blood pressure 103 mm[Hg] Panda Santos Other [employer] Other 07-18-2021 16:00-0500 Body height 167.64 cm Panda Hicks Other [employer] Other 07-18-2021 16:00-0500 Body mass index (BMI) [Ratio] 22.92 kg/m2 Panda Hicks Other [employer] Other 07-18-2021 16:00-0500 Body weight 64.41 kg Panda Hicks Other [employer] Other 07-18-2021 16:00-0500 Diastolic blood pressure 67 mm[Hg] Panda Hicks Other [employer] Other 07-18-2021 16:00-0500 Systolic blood pressure 119 mm[Hg] Panda Hicks Other [employer] Other 06-15-2021 11:00-0500 Body height 167.64 cm Panda Hicks Other [employer] Other 06-15-2021 11:00-0500 Body mass index (BMI) [Ratio] 22.43 kg/m2 Panda Hicks Other [employer] Other 06-15-2021 11:00-0500 Body weight 63.05 kg Panda Fabiola Other [employer] Other 02-23-2021 16:30-0400 Body height 167.64 cm Kelsey Pop Other [employer] Other 02-23-2021 16:30-0400 Body mass index (BMI) [Ratio] 22.59 kg/m2 Kelsey Pop Other [employer] Other 02-23-2021 16:30-0400 Body weight 63.5 kg Kelsey Pop Other [employer] Other Encounters Encounter Date Encounter Type Care Provider Facility Start: 01-12-2025 End: 01-12-2025 Patient encounter procedure Fay Pascal NP Work Phone: [facility] Comment on above: Encounter for subseq uent annual wellness visit (AWV) in Medicare patient (Primary Dx); Obstructive sleep apnea syndrome; Dyslipidemia ; Encounter for screening mammogram for malignant neoplasm of breast; Osteoporosis, postmenopausal ; Vitamin D deficiency; Prediabetes; Hypothyroidism, adult ; Heart murmur; Nonrheumatic aortic valve insufficiency Start: 12-08-2024 End: 12-09-2024 Refill Fay Pascal NP Work Phone: [facility] Comment on above: Hypothyroidism, adul t Start: 09-29-2024 End: 09-29-2024 Office outpatient visit 15 minutes Melyssa Dickerson DPM Work Phone: [facility] Comment on above: Dermatophytosis of n ail (Primary Dx); Dystrophic nail; Pain around toenail, left foot; Pain around toenail, right foot; Difficulty walking Start: 09-29-2024 End: 09-29-2024 ambulatory MELYSSA DICKERSON Not Available Start: 09-23-2024 End: 09-23-2024 ambulatory CHAIM JEWELL [facility] Start: 09-10-2024 End: 09-10-2024 Clinisync Result Encounter Generic External Data Provider [facility] External Department Unsolicited Start: 09-10-2024 End: 09-10-2024 Clinisync Result Encounter Generic External Data Provider [facility] External Department Unsolicited Start: 09-10-2024 End: 09-10-2024 ambulatory FAY PASCAL [facility] Start: 09-10-2024 End: 09-10-2024 Subsequent hospital visit by physician Fay Marcelino [employer] Work Phone: [facility] Comment on above: Vaginal discharge Start: 09-08-2024 End: 09-08-2024 Orders Only Fay Pascal [employer] Work Phone: [facility] Comment on above: Rectal bleeding (Geraldine yesica Dx) Start: 08-27-2024 End: 08-27-2024 Refill Fay Pascal [employer] Work Phone: [facility] Comment on above: Hypothyroidism, adul t (CMS/HCC) Start: 08-20-2024 End: 08-21-2024 Clinisync Result Encounter Generic External Data Provider [facility] External Department Unsolicited Start: 08-20-2024 End: 08-21-2024 Clinisync Result Encounter Generic External Data Provider [facility] External Department Unsolicited Start: 08-20-2024 End: 08-20-2024 ambulatory KALIN GOLDEN [facility] Start: 08-20-2024 End: 08-20-2024 Subsequent hospital visit by physician Fay Pascal APRN - [employer] Work Phone: [facility] Comment on above: Vaginal discharge Start: 06-09-2024 End: 06-09-2024 Refill Fay Pascal [employer] Work Phone: [facility] Comment on above: Hypothyroidism, adul t (CMS/HCC) (Primary Dx) Start: 04-23-2024 End: 04-23-2024 Refill Faymaciel Pascal [employer] Work Phone: [facility] Comment on above: Hypothyroidism, adul t (CMS/HCC) (Primary Dx) Start: 04-21-2024 End: 04-21-2024 Clinisync Result Encounter Fay Pascal [employer] Work Phone: [facility] External Department Unsolicited Start: 04-21-2024 End: 04-21-2024 Clinisync Result Encounter Fay Pascal [employer] Work Phone: [facility] External Department Unsolicited Start: 03-19-2024 End: 03-19-2024 Patient encounter procedure MD Bright Mccall II Work Phone: [facility] Work Phone: Start: 03-19-2024 End: 03-19-2024 ambulatory NON STAFF [facility] Work Phone: Start: 02-19-2024 End: 02-19-2024 Bamboo flowsheet Fay Pascal [employer] Work Phone: [facility] Start: 02-19-2024 End: 02-19-2024 Bamboo flowsheet Fay Pascal [employer] Work Phone: [facility] Start: 02-19-2024 End: 02-19-2024 Office outpatient visit 25 minutes Fay Pascal [employer] Work Phone: [facility] Comment on above: Hypothyroidism, adul t (CMS/HCC) (Primary Dx); Heart murmur; Obstructive sleep apnea syndrome Start: 02-19-2024 End: 02-19-2024 Refill Fay Pascal [employer] Work Phone: [facility] Comment on above: Hypothyroidism, adul t (CMS/HCC) (Primary Dx) Start: 01-07-2024 End: 01-07-2024 Bamboo flowsheet Fay Pascal [employer] Work Phone: [facility] Start: 01-07-2024 End: 01-07-2024 Bamboo flowsheet Fay Pascal [employer] Work Phone: [facility] Start: 01-07-2024 End: 01-07-2024 Patient encounter procedure Fay Pascal [employer] Work Phone: [facility] Comment on above: Encounter for subseq uent annual wellness visit (AWV) in Medicare patient (Primary Dx); Hypothyroidism, adult ([facility]); Encounter for screening mammogram for malignant neoplasm of breast; Vitamin D deficiency; Osteoporosis, 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[facility]); Heart murmur; Obstructive sleep apnea syndrome Start: 01-07-2024 End: 01-07-2024 ambulatory FAY PASCAL Not Available Start: 12-03-2023 End: 12-03-2023 Departed Referred SOCIAL WORK COORDINATOR Christiane Wade Work Phone: [facility] Work Phone: Start: 12-03-2023 End: 12-03-2023 ambulatory Christiane Wade [facility] Work Phone: Start: 12-03-2023 End: 12-03-2023 Patient encounter procedure [facility] Work Phone: Start: 07-31-2023 End: 08-01-2023 ambulatory Jose M R MERCY Facility:[facility] Start: 07-18-2023 End: 07-18-2023 ambulatory Phoenix Garner Facility:[facility] Start: 07-10-2023 End: 07-11-2023 ambulatory Jose M R NILL Facility:[facility] Start: 07-10-2023 End: 07-10-2023 Patient encounter procedure Jose M R NILL General Surgery Nill/Said [facility] Start: 06-27-2023 ambulatory Jose M NILL Facility:[facility] Start: 06-27-2023 Bamboo flowsheet Fay Pascal [employer] Work Phone: [facility] Start: 06-27-2023 Bamboo flowsheet Fay Pascal [employer] Work Phone: [facility] Start: 06-27-2023 Clinisync Result Encounter Fay Pascal [employer] Work Phone: [facility] External Department Unsolicited Start: 06-27-2023 End: 06-27-2023 Office outpatient visit 25 minutes Fay Pascal [employer] Work Phone: [facility] Comment on above: Rectal bleeding (Geraldine yesica Dx); Hypothyroidism, adult (CMS/HCC); Vitamin D deficiency; BMI 21.0-21.9, adult; Heart murmur Start: 07-30-2022 End: 07-30-2022 ambulatory LORRAINE CHRISTINE Facility:[facility] Start: 07-30-2022 End: 07-30-2022 Patient encounter procedure Lorraine JARA-C Work Phone: [facility] Surgery Comment on above: Rectal discharge (Pr imary Dx) Start: 05-09-2022 End: 05-10-[address] PHOENIX GARNER Facility:[facility] Start: 10-18-2021 End: 10-19-[address] PHOENIX GARNER Facility:[facility] Start: 10-10-2021 End: 10-10-2021 ambulatory Panda Santos Other [employer] Other Start: 10-10-2021 Office outpatient vi sit 40 minutes Panda Santos [facility] Start: 07-18-2021 End: 07-18-2021 ambulatory Panda Hicks Other [employer] Other Start: 07-18-2021 Office outpatient vi sit 15 minutes Panda Hicks [facility] Start: 06-20-2021 End: 06-20-2021 ambulatory Panda Hicks Other [employer] Other Start: 06-20-2021 Telephone encounter Panda Hicks [facility] Start: 06-15-2021 End: 06-15-2021 ambulatory Panda Hicks Other [employer] Other Start: 06-15-2021 Office outpatient vi sit 25 minutes Panda Hicks [facility] Start: 05-31-2021 End: 06-01-[address] PHOENIX GARNER Facility:[facility] Start: 05-02-2021 End: 05-02-2021 ambulatory Panda Hicks Other [employer] Other Start: 05-02-2021 Telephone encounter Panda Hicks [facility] Start: 05-01-2021 End: 05-01-2021 ambulatory Panda Hicks Other [employer] Other Start: 05-01-2021 Telephone encounter Panda Hicks [facility] Start: 04-10-2021 End: 04-10-2021 ambulatory Panda Hicks Other [employer] Other Start: 04-10-2021 Telephone encounter Panda Husseingriselda [facility] Start: 03-20-2021 Telephone encounter Panda Hicks [facility] Start: 02-23-2021 Office outpatient vi sit 15 minutes Kelsey Pop [facility] Procedures Date Procedure Procedure Detail Performing Clinician Start: 09-10-2024 Iadna aleksandr species direct probe tq Kalin Golden SOCIAL WORK COORDINATOR - CNM Work Phone: Start: 09-10-2024 [facility] DNA PROBE Generic Externa l Data Provider Start: 08-20-2024 [facility]AGINITIS DNA PROBE Generic Externa l Data Provider Start: 05-11-2024 Mammography Fay Pascal [employer] Work Phone: Start: 04-21-2024 ALL THYROID STIM HORMONE Fay Pascal N P Work Phone: Start: 03-19-2024 Plain radiography of pelvis MD Bright paez II Work Phone: Start: 03-19-2024 X-ray of right knee, four views MD Stan Mccall II Work Phone: Start: 07-31-2023 Colonoscopy Fay Pascal [employer] Work Phone: Start: 06-27-2023 ALL CBC WITH AUTO DIFF Fay Pascal [employer] Work Phone: Start: 05-10-2023 Mammography Fay Pascal [employer] Work Phone: Start: 04-03-2021 Colonoscopy Fay Pascal [employer] Work Phone: Start: 04-03-2021 Colonoscopy Jose M NILL Start: 04-03-2021 Esophagogastroduodenoscopy Jose M NILL Start: 05-20-2014 Colonoscopy Jose M NILL Arthroscopy of knee Jose M NILL Arthroscopy of shoulder Gucci aejaxson NILL Bladder excision Jose M NIL L Comment on above: right upper back Colonoscopy Jose M NILL Laparoscopy Jose M NILL Ligation of fallopian tube Macho golden NILL Plan of Treatment Date Care Activity Detail Author Start: 07-30-2033 Screening for malignant neoplasm of colon [facility] Start: 04-03-2031 Screening for malignant neoplasm of colon [facility] Start: 2030 Respiratory Syncytial Virus (RSV) or age 60 yrs+ (1 - 1-dose 75+ series) Respiratory Syncytial Virus (RSV) or age 60 yrs+ (1 - 1-dose 75+ series) [facility] Start: 01-17-2026 End: 01-17-2026 Patient encounter procedure 01/17/2026 10:30 AM EDT Office Visit [facility] [address] [place] [phone] Fay Pascal NP [address] [place] [phone] [facility] Start: 01-12-2026 Medicare Annual Wellness (AWV) Medicare Annual Wellness (AWV) [facility] Start: 08-20-2025 Depression Screen Depression Screen [facility] Start: 05-11-2025 End: 01-12-2026 DXA Skeletal system Views for bone density DEXA bone density Imaging Routine Osteoporosis, postmenopausal Expected: 05/11/2025 (Approximate), Expires: 01/12/2026 [facility] Comment on above: Expected: 05/11/2025 (Approximate), Expi res: 01/12/2026 Start: 05-11-2025 End: 03-14-2026 MG Breast - bilateral Screening Bilateral screening mammogram Imaging Routine Encounter for screening mammogram for malignant neoplasm of breast Expected: 05/11/2025 (Approximate), Expires: 03/14/2026 [facility] Work Phone: Comment on above: Expected: 05/11/2025 (Approximate), Expi res: 03/14/2026 Start: 05-11-2025 Screening for malignant neoplasm of breast Mammogram [facility] Start: 04-13-2025 End: 04-13-2025 Patient encounter procedure 04/13/2025 9:40 AM EST Office Visit [facility] [address] [place] [phone] Fay Pascal NP [address] [place] [phone] [facility] Start: 01-12-2025 End: 01-12-2026 25-hydroxyvitamin D3 [Mass/volume] in Serum or Plasma Vitamin D 25 hydroxy Lab Routine Vitamin D deficiency Expected: 01/12/2025 (Approximate), Expires: 01/12/2026 [facility] Comment on above: Expected: 01/12/2025 (Approximate), Expi res: 01/12/2026 Start: 01-12-2025 End: 01-12-2026 CBC W Auto Differential panel - Blood CBC and differential Lab Routine Obstructive sleep apnea syndrome Hypothyroidism, adult Expected: 01/12/2025 (Approximate), Expires: 01/12/2026 [facility] Comment on above: Expected: 01/12/2025 (Approximate), Expi res: 01/12/2026 Start: 01-12-2025 End: 01-12-2026 Comprehensive metabolic 2000 panel - Serum or Plasma Comprehensive metabolic panel Lab Routine Dyslipidemia Osteoporosis, postmenopausal Vitamin D deficiency Prediabetes Hypothyroidism, adult Expected: 01/12/2025 (Approximate), Expires: 01/12/2026 [facility] Comment on above: Expected: 01/12/2025 (Approximate), Expi res: 01/12/2026 Start: 01-12-2025 End: 01-12-2027 Echocardiogram 2D complete Echocardiogram 2D complete Echocardiography Routine Heart murmur Nonrheumatic aortic valve insufficiency Expected: 01/12/2025 (Approximate), Expires: 01/12/2027 [facility] Comment on above: Expected: 01/12/2025 (Approximate), Expi res: 01/12/2027 Start: 01-12-2025 End: 01-12-2026 Hemoglobin A1c/Hemoglobin.total in Blood Hemoglobin A1c Lab Routine Prediabetes Expected: 01/12/2025 (Approximate), Expires: 01/12/2026 [facility] Comment on above: Expected: 01/12/2025 (Approximate), Expi res: 01/12/2026 Start: 01-12-2025 End: 01-12-2026 Lipid 1996 panel - Serum or Plasma Lipid panel Lab Routine Dyslipidemia Expected: 01/12/2025 (Approximate), Expires: 01/12/2026 [facility] Comment on above: Expected: 01/12/2025 (Approximate), Expi res: 01/12/2026 Start: 01-12-2025 End: 01-12-2026 Thyrotropin [Units/volume] in Serum or Plasma TSH Lab Routine Hypothyroidism, adult Expected: 01/12/2025 (Approximate), Expires: 01/12/2026 [facility] Comment on above: Expected: 01/12/2025 (Approximate), Expi res: 01/12/2026 Start: 01-12-2025 End: 01-12-2026 Thyroxine (T4) free [Mass/volume] in Serum or Plasma T4, free Lab Routine Hypothyroidism, adult Expected: 01/12/2025 (Approximate), Expires: 01/12/2026 [facility] Comment on above: Expected: 01/12/2025 (Approximate), Expi res: 01/12/2026 Start: 01-12-2025 End: 01-12-2026 Triiodothyronine (T3) Free [Mass/volume] in Serum or Plasma T3, free Lab Routine Hypothyroidism, adult Expected: 01/12/2025 (Approximate), Expires: 01/12/2026 [facility] Comment on above: Expected: 01/12/2025 (Approximate), Expi res: 01/12/2026 Start: 01-12-2025 End: 01-12-2025 Patient encounter procedure 01/12/2025 10:00 AM EDT Office Visit [facility] [address] [place] [address] Fay Pascal NP [address] [place] [address] [facility] Start: 01-06-2025 Medicare Annual Wellness (AWV) Medicare Annual Wellness (AWV) [facility] Start: 12-18-2024 Influenza vaccination Flu vaccine (Season Ended) [employer] Start: 09-29-2024 End: 09-29-2024 Patient encounter procedure 09/29/2024 9:30 AM EDT Procedure Visit [facility] [address] [place] [phone] Melyssa Dickerson DPM [address] [place], [place] [id number] [facility] Start: 08-18-2024 Annual Wellness Visit (Medicare) Annual Wellness Visit (Medicare) [employer] Start: 07-22-2024 End: 04-23-2025 Thyrotropin [Units/volume] in Serum or Plasma TSH Lab Routine Hypothyroidism, adult (CMS/HCC) Expected: 07/22/2024 (Approximate), Expires: 04/23/2025 [facility] Work Phone: Comment on above: Expected: 07/22/2024 (Approximate), Expi res: 04/23/2025 Start: 07-22-2024 End: 04-23-2025 Thyroxine (T4) free [Mass/volume] in Serum or Plasma T4, free Lab Routine Hypothyroidism, adult (CMS/HCC) Expected: 07/22/2024 (Approximate), Expires: 04/23/2025 [facility] Comment on above: Expected: 07/22/2024 (Approximate), Expi res: 04/23/2025 Start: 06-22-2024 End: 06-22-2024 Patient encounter procedure 06/22/2024 9:00 AM EST Office Visit [facility] [address] [place] [address] Fay Pascal NP [address] [place] [address] [facility] Start: 05-10-2024 Screening for malignant neoplasm of breast [facility] Start: 05-08-2024 End: 03-08-2025 MG Breast - bilateral Screening Bilateral screening mammogram Imaging Routine Encounter for screening mammogram for malignant neoplasm of breast Expected: 05/08/2024 (Approximate), Expires: 03/08/2025 [facility] Comment on above: Expected: 05/08/2024 (Approximate), Expi res: 03/08/2025 Start: 03-19-2024 Plain radiography of pelvis XR pelvis 1-2V [facility] Start: 03-19-2024 X-ray of right knee, four views XR knee RT 4V* [facility] Start: 03-19-2024 XR Knee - right 4 Views [facility] Start: 03-19-2024 XR Pelvis 1 or 2 Views [facility] Start: 02-19-2024 End: 02-19-2024 Patient encounter procedure [facility] Comment on above: Arrived Start: 01-19-2024 COVID-19 Vaccine ( season) COVID-19 Vaccine () [facility] Start: 01-07-2024 End: 01-06-2026 Echocardiogram 2D complete Echocardiogram 2D complete Echocardiography Routine Heart murmur Expected: 01/07/2024 (Approximate), Expires: 01/06/2026 [facility] Comment on above: Expected: 01/07/2024 (Approximate), Expi res: 01/06/2026 Start: 01-07-2024 End: 01-06-2025 Thyrotropin [Units/volume] in Serum or Plasma TSH Lab Routine Hypothyroidism, adult (CMS/HCC) Expected: 01/07/2024 (Approximate), Expires: 01/06/2025 [facility] Work Phone: Comment on above: Expected: 01/07/2024 (Approximate), Expi res: 01/06/2025 Start: 01-07-2024 End: 01-06-2025 Thyroxine (T4) free [Mass/volume] in Serum or Plasma T4, free Lab Routine Hypothyroidism, adult (CMS/HCC) Expected: 01/07/2024 (Approximate), Expires: 01/06/2025 [facility] Comment on above: Expected: 01/07/2024 (Approximate), Expi res: 01/06/2025 Start: 01-07-2024 End: 01-07-2024 Patient encounter procedure 01/07/2024 10:30 AM EDT Office Visit [facility] [address] [place] [address] Fay Pascal NP [address] [place] [address] Hypothyroidism, adult (CMS/HCC) (Primary Dx); Encounter for screening mammogram for malignant neoplasm of breast [facility] Comment on above: Hypothyroidism, adult (CMS/HCC) (Primary Dx); Encounter for screening mammogram for malignant neoplasm of breast Start: 01-04-2024 Medicare Annual Wellness (AWV) Medicare Annual Wellness (AWV) [facility] Start: 12-03-2023 Bacteria identified in Urine by Culture [facility] Start: 07-31-2023 End: 07-31-2023 Patient encounter procedure 07/31/2023 9:20 AM EDT Office Visit [facility] [address] [place] [address] Fay Pascal, [employer] [address] [place] [address] [facility] Start: 06-27-2023 End: 06-27-2024 25-hydroxyvitamin D3 [Mass/volume] in Serum or Plasma Vitamin D 25 hydroxy Lab Routine Vitamin D deficiency Expected: 06/27/2023 (Approximate), Expires: 06/27/2024 [facility] Work Phone: Comment on above: Expected: 06/27/2023 (Approximate), Expi res: 06/27/2024 Start: 06-27-2023 End: 06-27-2024 CBC W Auto Differential panel - Blood CBC and differential Lab Routine Rectal bleeding Expected: 06/27/2023 (Approximate), Expires: 06/27/2024 [facility] Comment on above: Expected: 06/27/2023 (Approximate), Expi res: 06/27/2024 Start: 06-27-2023 End: 06-27-2024 Comprehensive metabolic 2000 panel - Serum or Plasma Comprehensive metabolic panel Lab Routine Hypothyroidism, adult (CMS/HCC) Vitamin D deficiency Rectal bleeding Expected: 06/27/2023 (Approximate), Expires: 06/27/2024 [facility] Comment on above: Expected: 06/27/2023 (Approximate), Expi res: 06/27/2024 Start: 06-27-2023 End: 06-27-2024 Erythrocyte sedimentation rate Sedimentation rate, automated Lab Routine Rectal bleeding Expected: 06/27/2023 (Approximate), Expires: 06/27/2024 [facility] Comment on above: Expected: 06/27/2023 (Approximate), Expi res: 06/27/2024 Start: 06-27-2023 End: 06-27-2024 Ferritin [Mass/volume] in Serum or Plasma Ferritin Lab Routine Rectal bleeding Expected: 06/27/2023 (Approximate), Expires: 06/27/2024 [facility] Comment on above: Expected: 06/27/2023 (Approximate), Expi res: 06/27/2024 Start: 06-27-2023 End: 06-27-2024 Iron and Iron binding capacity panel - Serum or Plasma Iron level Lab Routine Rectal bleeding Expected: 06/27/2023 (Approximate), Expires: 06/27/2024 [facility] Comment on above: Expected: 06/27/2023 (Approximate), Expi res: 06/27/2024 Start: 06-27-2023 End: 06-27-2024 Thyrotropin [Units/volume] in Serum or Plasma TSH Lab Routine Hypothyroidism, adult (CMS/HCC) Expected: 06/27/2023 (Approximate), Expires: 06/27/2024 [facility] Comment on above: Expected: 06/27/2023 (Approximate), Expi res: 06/27/2024 Start: 06-27-2023 End: 06-27-2024 Thyroxine (T4) free [Mass/volume] in Serum or Plasma T4, free Lab Routine Hypothyroidism, adult (CMS/HCC) Expected: 06/27/2023 (Approximate), Expires: 06/27/2024 [facility] Comment on above: Expected: 06/27/2023 (Approximate), Expi res: 06/27/2024 Start: 06-27-2023 End: 06-27-2024 Triiodothyronine (T3) Free [Mass/volume] in Serum or Plasma T3, free Lab Routine Hypothyroidism, adult (CMS/HCC) Expected: 06/27/2023 (Approximate), Expires: 06/27/2024 [facility] Comment on above: Expected: 06/27/2023 (Approximate), Expi res: 06/27/2024 Start: 06-27-2023 End: 06-27-2023 Patient encounter procedure 06/27/2023 9:40 AM EST Office Visit [facility] [address] [place] [address] Fay Pascal NP [address] [place] [address] Hypothyroidism, adult (CMS/HCC) (Primary Dx); Vitamin D deficiency [facility] Comment on above: Hypothyroidism, adult (CMS/HCC) (Primary Dx); Vitamin D deficiency Start: 01-18-2023 Influenza vaccination Influenza Vaccine (#1) [facility] Start: 05-20-2022 ADVANCE DIRECTIVE DISCUSSION ADVANCE DIRECTIVE DISCUSSION [facility] Start: 05-20-2022 DEPRESSION ASSESSMENT DEPRESSION ASSESSMENT [facility] Start: 01-18-2022 Influenza vaccination INFLUENZA (#1) [facility] Start: 2020 BONE DENSITY BONE DENSITY [facility] Start: 2020 PNEUMOCOCCAL: 65+ (1 - PCV) PNEUMOCOCCAL: 65+ (1 - PCV) [facility] Start: 03-20-2018 Medicare Annual Wellness (AWV) Medicare Annual Wellness (AWV) [facility] Start: 2010 Screening for osteoporosis DEXA (modify frequency per FRAX score) [facility] Start: 2005 Shingles vaccine (1 of 2) Shingles vaccine (1 of 2) [facility] Start: 2005 SHINGRIX VACCINE (1 of 2) SHINGRIX VACCINE (1 of 2) [facility] Start: 2000 COLOGUARD (FIT-DNA) COLOGUARD (FIT-DNA) [facility] Start: 2000 Colonoscopy COLONOSCOPY [facility] Start: 2000 COLORECTAL CANCER SCREENING COLORECTAL CANCER SCREENING [facility] Start: [address] COLONOGRAPHY [facility] Start: 2000 DIABETES SCREEN DIABETES SCREEN [facility] Start: 2000 FECAL OCCULT BLOOD FECAL OCCULT BLOOD [facility] Start: 2000 LIPID SCREEN LIPID SCREEN [facility] Start: 2000 Screening for malignant neoplasm of colon [facility] Start: 2000 SIGMOIDOSCOPY SIGMOIDOSCOPY [facility] Start: 1995 Lipid panel Lipids [facility] Start: 1995 Mammography MAMMOGRAM [facility] Start: 1974 DTaP/Tdap/Td vaccine (1 - Tdap) DTaP/Tdap/Td vaccine (1 - Tdap) [facility] Start: 1974 Urine microalbumin profile DTAP,TDAP,TD (1 - Tdap) [facility] Start: 1973 HEPATITIS C SCREENING HEPATITIS C SCREENING [facility] Start: 1973 Hepatitis C screening Hepatitis C screen [facility] Start: 1967 Depression Screen Depression Screen [facility] Start: 01-15-1956 COVID-19 VACCINE (#1) COVID-19 VACCINE (#1) [facility] Start: 1955 Screening for malignant neoplasm of colon [facility] End: 08-20-2024 Vaginitis DNA Probe [facility] Comment on above: 1 Occurrences starting 08/20/2024 until 08/20/2024 Immunizations Immunization Date Immunization Notes Care Provider Fa carol 02-27-2022 Pneumococcal Conjuga te PCV 20 Fay Pascal [employer] Work Phone: [facility] 02-23-2021 Kenalog -40 mg Kelsey mckee Other [email or web address] Other 09-28-2020 Kenalog -40 mg Kelsey mckee Other [employer] Other 09-28-2020 Gel-One Kelsey dior Other [employer] Other 07-15-2014 pneumococcal conjuga te vaccine, 13 valent Fay Federicaz [employer] Work Phone: [facility] 08-18-2009 pneumococcal polysaccharide vaccine, 23 valent Fay Federicaz [employer] Work Phone: [facility] NEGATED: Highlighted row has not occurred!07-10-2023 influenza virus vaccine, unspecified formulation Jose M SANTO [facility] [place] Payers Date Payer Category Payer Self-pay [id number] 2020 Medicare [id number] 2020 Private Health Insurance [id number] 1959 Medicare [id number] 2.1 [id number] 1959 Private Health Insurance CLI [id number] 1955 Unknown [id number] 2.16.84 [id number] 1955 Unknown [id number] 2.16.84 [id number] 1955 Unknown [id number] 2.16.84 [id number] 1955 Unknown [id number] 2.16.8 [id number] 1955 Unknown [id number] 2.16.8 [id number] 1955 Unknown [id number] 2.16.8 [id number] 1955 Unknown [id number] 2.16.8 [id number] 1955 Unknown [id number] 2.16.84 [id number] 1955 Unknown [id number] 2.16.84 [id number] 1955 Unknown [id number] 2.16.84 [id number] Unknown [id number] 2.16.8 [id number] Unknown [id number] 2.16.8 [id number] Unknown [id number] 2.16.8 [id number] Social History Date Type Detail Facility Start: 06-26-2023 End: 01-12-2025 Sex Assigned At [facility] Start: 07-30-2022 End: 06-25-2023 Tobacco smoking status NHIS Never smoked tobacco [facility] Start: 07-30-2022 End: 06-25-2023 Tobacco use and exposure Smokeless tobacco non-user [facility] Start: 07-30-2022 End: 01-12-2025 Alcohol intake Ex-drinker (finding) [facility] Start: 1955 Sex Assigned At Not on file [facility] Start: 06-26-2023 End: 01-12-2025 History of Social function [facility] Within the last year , have you been afraid of your partner or ex-partner? No [facility] Attends Spiritism Services Not on file [facility] Are you now , , , , never or living with a partner? [facility] How often to you hav e a drink containing alcohol? Never [facility] Do you feel stress - tense, restless, nervous, or anxious, or unable to sleep at night because your mind is troubled all the time - these days [OSQ] To some extent [facility] (I/We) worried [place] er (my/our) food would run out before (I/we) got money to buy more. Never true [facility] Start: 06-25-2023 Alcohol Comment coffee 1-2 cup s per day [facility] Start: 04-03-2021 Tobacco smoking stat us NHIS Ex-smoker (finding) [facility] Start: 1955 Sex Assigned At Female F [facility] Start: 08-20-2024 End: 09-10-2024 Alcoholic beverage intake Current drinker of alcohol (finding) [employer] Start: 08-20-2024 Alcohol Comment occ [employer] Start: 08-18-2024 Sex Female (finding) [employer] Functional Status Date Assessment Result Facility 01-12-2025 Patient Health Quest ionnaire 2 item (PHQ-2) [Reported] [facility] 07-10-2023 Functional Status N/A General Pack [employer] [facility] Clinical Notes 02-23-2021 to 01-12-2025 Fay Pascal NP - 01/12/2025 11:03 AM Eddie Pascal NP - 01/12/2025 10:59 AM EDTHALEX CORONADO - 01/12/2025 10:00 AM Eddie Pascal NP - 01/12/2025 10:00 AM EDTPatient Instructions Note Date & Type Note Facility 01-12-2025 History of Present illness Narrative Associated Problem(s): Nonrheumatic aortic valve insufficiency ECHO Associated Problem(s): Heart murmur Will order updated ECHO Pt states she has been feeling good with the 75mcg of the levothyroxine Images from the original note were not included. Alesha Bonilla is a 69 y.o. female presents with [...] Size: Adult long) Pulse 84 Temp 98.1 F (Temporal) Resp 18 Wt 137 lb SpO2 99% BMI 22.11 kg/m Smoking Status Never BSA 1.7 m [...] insufficiency ECHO Relevant Orders Echocardiogram 2D complete Associated Problem(s): Hypothyroidism, adult Currently taking levothyroxine Check labs yearly and prn dose changes or changes in sxs Associated Problem(s): Vitamin D deficiency Takes calcium/vit d supplement Associated Problem(s): Osteoporosis, postmenopausal No DEXA on file, I do recommend DEXA scan Does take calcium/vit d supplement Associated Problem(s): Encounter for screening mammogram for malignant neoplasm of breast Due in 05/13 Will provide order Associated Problem(s): Encounter for subsequent annual wellness visit (AWV) in Medicare patient Reviewed Ht/Wt/BMI Recommend eye exam yearly Recommend dental exams twice a year Balance work/leisure activities Exercises is recommended most days of the week (appropriate as chronic conditions allow) Follow up yearly and prn Associated Problem(s): Dyslipidemia Hx of this per lab finding, no statin use Recommend low fat diet Associated Problem(s): Obstructive sleep apnea syndrome Elevated [...] manages your RIVERA: documented in this encounter [facility] 01-12-2025 Instructions Fay Pascal NP - 01/12/2025 10:00 AM EDT Get labs fasting Mammogram and bone density in April 2025 Will order ultrasound of heart, I will fax order to [facility] they should call you documented in this encounter [facility] 09-29-2024 History of Present illness Narrative Images from the original note were not included. Subjective Patient ID: Alesha Bonilla is a 69 y.o. female who presents for Nail care (Alesha Bonilla 69yo New patient presents for nail care. Patient was last seen 02/2022 for nail care. Patient relates she has used fungi foam and listerine and vinegar in the past with little results. Patient has no interest in oral treatment, but would like options at this time. SS 9). HPI Patient last in clinic in February of 2022. Chief complaint: Persistent toenail fungus involving multiple digits. Insidious onset without known injury or trauma. Toenail deformity and discoloration of multiple years duration. Identifies primarily digits 2, 3 of the left foot as problematic/symptomatic; describing pressure discomfort with footwear; progressive catching and snagging on clothing, bed sheets etc.. Denies bleeding or drainage. Relative to the right foot; she does note some degree of improvement from baseline with topical care measures. Reports good compliance with use of fungi foam, of which her supply has been completed. Attempts at self care continue to be difficult, ineffective and not practical; increasing risk exposure. Family members unable to provide effective care. Medications Current Outpatient Medications: Calcium Citrate-Vitamin D (Yovanny-Citrate Plus Vitamin D) 250-2.5 MG-MCG tablet, Take 1 tablet by mouth in the morning and 1 tablet in the evening., Disp: , Rfl: levothyroxine (Synthroid) 75 MCG tablet, Take 1 tablet (75 mcg) by mouth in the morning. Take before meals., Disp: 90 tablet, Rfl: 0 Allergies Patient has no known allergies. Past Surgical History Past Surgical History: Procedure Laterality Date COLONOSCOPY 2014 COLONOSCOPY 04/03/2021 colonoscopy / EGD - Dr Hicks KNEE SURGERY Right OTHER SURGICAL HISTORY Lumpectomy, right upper back PELVIC LAPAROSCOPY SHOULDER SURGERY Right TUBAL LIGATION Family History Family History Problem Relation Name Age of Onset Hyperlipidemia Mother 99 Cancer Father Lung cancer Father Liver cancer Brother Colon cancer Brother Objective General Examination: GENERAL EXAMINATION: Alert and oriented. Pleasant disposition. Vascular: DORSALIS PEDIS PULSE: bilaterally, 2/4 . POSTERIOR TIBIAL PULSE: bilaterally, 2/4 . TEMPERATURE GRADIENT: warm to warm. EDEMA: Unremarkable for ankle edema. CAPILLARY FILLING TIME(sec): capillary fill intact bilateral digits less than 3 secs . Neurologic: MUSCLE POWER: No focal deficits. SHARP SENSATION: Tactile and soft touch sensation intact. Dermatologic: SKIN FINDINGS: Intact. Skin turgor is good. HYPERTROPHIC LESION: Slightly raised tyloma lesions sub 2nd metatarsal condyle bilateral; non-inflamed, non-tender. NAIL PATHOLOGY: Right great toe: Persistent DSO deformity; with sparing of the lunula; toenail dystrophy, thickening, discoloration, distal onycholysis, subungual and periungual keratotic and mycotic debris; without drainage. Digits 2, 3 left foot: TDO deformity and clinical mycosis. Digits 2, 4, 5 right foot: Stable DSO deformity. All remaining digits: Toenails are clear and non-dystrophic. INGROWN NAIL PATHOLOGY: Right great toe: Lateral margin; non-inflamed. MYCOSIS SCALE: total with debris; digits 2, 3 left foot. INTERDIGITAL MACERATION: Clean, dry, non-inflamed. ULCER:no sign of ulceration or open wound . SKIN PATHOLOGY:texture, turgor, hair growth, within normal limits . Ankle / Foot: FOOT: Stable, mild HAV deformity bilateral; flexible and reducible to rectus position, with functional MTP joint range of motion. RANGE OF MOTION: Demonstrates functional ankle, subtalar and MTP joint range of motion without pain . 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 Plan: Review of clinical findings, differential diagnosis of toenail deformity and condition, etiology and contributing/aggravating factors, treatment strategy, rationale and objectives. Patient expresses no interest in oral therapy. States her intention to eventually proceed with total matricectomy/phenol technique 2nd digit left foot; possibly 3rd digit left foot. Patient is content to continue topical care measures with remaining involved digits: Formula 7; preceded by use of vinegar and/or Listerine as directed. Advised as to limited efficacy. Hygiene and skin care measures discussed Procedure: Toenail debridement: Aseptic technique: Hand and power instrumentation: Onychodebridement in length and thickness, with curettage of any cryptotic margins, all periungual debris; providing effective symptom and pressure relief; reducing shoe and digital trauma; reducing fungal reservoir. This note was created with the assistance of a speech recognition program. While intending to generate a timely document that accurately reflects the content of the visit, no guarantee can be provided that every grammatical or spelling mistake has been or will be identified or corrected. Thank you for your understanding. Melyssa Dickerson DPM documented in this encounter [facility] 09-29-2024 Instructions Melyssa Dickerson DPM - 09/29/2024 9:30 AM EDT Topical care measures as noted documented in this encounter [facility] 09-23-2024 Note Subjective Patient ID: Alesha Bonilla is a 69 y.o. female who presents for Rectal Bleeding. HPI Alesha Bonilla is a 69 year old female presenting today for a new patient visit with complaints of chronic rectal bleeding. She states the rectal bleeding began 2-3 years ago with associated diarrhea that lasted 1 month. She had a colonoscopy at time of onset that was normal. The rectal bleeding continued and worsened requiring repeat colonoscopy in July of 2023 that showed mild diverticulosis and hemorrhoids. She states the bleeding occurs intermittently with bowel movements. She described the blood as dripping bright red, in the toilet bowl. She admits to passing small blood clots as well. If she is not bleeding, she reports excessive mucous drainage from the rectum. She feels her bowel movements are not normal, describing them as pellets or string-like. Bowel movements currently occur every 2 days. She uses prune or apple juice to help soften her stools. She denies pain or any other concerns at this time. Rectal Bleeding Pertinent negatives include no abdominal pain, nausea or vomiting. Review of Systems Constitutional: Negative. HENT: Negative. Eyes: Negative. Respiratory: Negative. Gastrointestinal: Positive for anal bleeding, blood in stool and hematochezia. Negative for abdominal distention, abdominal pain, constipation, diarrhea, nausea, rectal pain and vomiting. Endocrine: Negative. Genitourinary: Negative. Musculoskeletal: Negative for back pain. Neurological: Negative for dizziness and light-headedness. Hematological: Negative. Psychiatric/Behavioral: Negative. Objective Visit Vitals BP 97/66 (BP Location: Left arm, Patient Position: Sitting) Pulse 59 Temp 36.6 ???C (97.9 ???F) (Oral) Physical Exam Exam conducted with a hide mill worker present. Constitutional: Appearance: Normal appearance. She is normal weight. HENT: Head: Normocephalic and atraumatic. Cardiovascular: Rate and Rhythm: Normal rate and regular rhythm. Abdominal: General: There is no distension. Palpations: Abdomen is soft. Genitourinary: Exam position: Knee-chest position. Rectum: Internal hemorrhoid present. No mass, tenderness, anal fissure or external hemorrhoid. Normal anal tone. Skin: General: Skin is warm and dry. Neurological: Mental Status: She is alert and oriented to person, place, and time. Psychiatric: Mood and Affect: Mood normal. Behavior: Behavior normal. Assessment/Plan Rectal Bleeding Start 1 teaspoon Metamucil per day for bowel movement regulation Follow up if symptoms do not improve, consider colonoscopy at that time No diagnosis found. No orders of the defined types were placed in this encounter. No results found for this or any previous visit (from the past 36 hour(s)). No follow-ups on file. Marva Schaefer, MS4 [facility] The above patient was seen with the medical student and the physical exam was done by myself with the student present, assisting and observing. The plan was discussed in detail with the student and the patient. [facility] 09-14-2024 Note Received referral fo r rectal bleeding, called patient to schedule an appt with Dr. Jewell. Patient states she was unaware that referral was being sent. She will call back to schedule when ready. Referral scanned in. [facility] 02-19-2024 History of Present illness Narrative Associated [...] swets- she was reading an article on [employer] about the medication causing night sweats could [...] Basal cell carcinoma 06/27/2023 Childbirth x3 Dyslipidemia ([facility]) 06/27/2023 Gastroesophageal reflux disease 06/27/2023 Hypothyroidism, adult ([facility]) 06/27/2023 Lichenification and lichen simplex chronicus 06/27/2023 Osteoarthritis 06/27/2023 Osteoporosis, 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[facility]) 06/27/2023 Prediabetes 06/27/2023 Primary osteoarthritis of [...] not wear PAP documented in this encounter [facility] 01-07-2024 History of Present illness Narrative Associated Problem(s): Obstructive sleep apnea syndrome Non compliant with PAP use Associated Problem(s): Heart murmur Does have murmur, no acute symptoms,however does have sleep apnea, non compliant with PAP use Associated Problem(s): Encounter for subsequent annual wellness visit (AWV) in Medicare patient Reviewed Ht/Wt/BMI Recommend eye exam yearly Recommend dental exams twice a year Balance work/leisure activities Exercises is recommended most days of the week (appropriate as chronic conditions allow) Follow up yearly and prn Associated Problem(s): Hypothyroidism, adult (CMS/HCC) Will increase thyroid dose back to 100mcg Recheck labs in 8 weeks Images from the original note were not included. Alesha Bonilla is a 68 y.o. female presents with chief complaint of No chief complaint on file. HPI: Here for AWV: Diet: variety Activity: age appropriate Mental Health:no concerns Living Will or HCPOA: yes Concerns: heart murmur, fatigue SUBJECTIVE: MEDICATIONS: Current Outpatient Medications Medication Instructions [...] 2 tablets, Oral, 2 times daily (12/29) levothyroxine (SYNTHROID) 88 mcg, Oral, Daily before breakfast omeprazole (PRILOSEC) 40 mg, Oral, Daily before breakfast, Do not crush or chew. vitamin C 1,000 mg, Oral, Daily ALLERGIES: No Known Allergies REVIEW OF SYMPTOMS: Review of Systems Constitutional: Positive for fatigue. Negative for appetite change, chills and fever. [...] Basal cell carcinoma 06/27/2023 Childbirth x3 Dyslipidemia ([facility]) 06/27/2023 Gastroesophageal reflux disease 06/27/2023 Hypothyroidism, adult ([facility]) 06/27/2023 Lichenification and lichen simplex chronicus 06/27/2023 Osteoarthritis 06/27/2023 Osteoporosis, 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[facility]) 06/27/2023 Prediabetes 06/27/2023 Primary osteoarthritis of [...] cancer in her father. OBJECTIVE: Visit Vitals Wt 135 lb 3.2 oz BMI 21.82 kg/m Smoking Status Never BSA 1.69 m Physical Exam Vitals and nursing note [...] is normal. Breath sounds: Normal breath sounds. No wheezing, rhonchi or rales. Chest: Chest wall: No tenderness. Abdominal: General: Bowel sounds are normal. There [...] file. Problem List Items Addressed This Visit Osteoporosis, 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[facility]) Relevant Medications Calcium Carb-Cholecalciferol (Calcium + Vitamin D3) 600-10 MG-MCG tablet Vitamin D deficiency Relevant Medications Calcium Carb-Cholecalciferol (Calcium + Vitamin D3) 600-10 MG-MCG tablet Hypothyroidism, adult (CMS/HCC) Will increase thyroid dose back to 100mcg Recheck labs in 8 weeks Relevant Medications levothyroxine (Synthroid) 100 MCG tablet Other Relevant Orders TSH T4, free Heart murmur Does have murmur, no acute symptoms,however does have sleep apnea, non compliant with PAP use Obstructive sleep apnea syndrome Non compliant with PAP use Encounter for screening mammogram for malignant neoplasm of breast Relevant Orders Bilateral screening mammogram Encounter for subsequent annual wellness visit (AWV) in Medicare patient - Primary Reviewed Ht/Wt/BMI Recommend eye exam yearly Recommend dental exams twice a year Balance work/leisure activities Exercises is recommended most days of the week (appropriate as chronic conditions allow) Follow up yearly and prn documented in this encounter [facility] 07-10-2023 Note Chief Complaint consultation for rectal bleeding [facility] Staff 67yo year old female presents on [...] 50,000 intl units (1.25 mg) oral capsule, 24495 International_Unit= 1 cap(s), Oral, qWeek Allergies No Known Allergies No Known Medication Allergies Social History Alcohol - Denies Alcohol Use, 07/10/2023 Substance Abuse - Denies Substance Abuse, 07/10/2023 Tobacco Never (less than 100 in lifetime) Tobacco Use:. Never Smokeless Tobacco Use:., 07/10/2023 Family History Liver cancer: Brother. Primary yeimi (more content not included)... [facility] Comment on above: Result Comment: Elec tronically Signed By: MERCY MARTINEZ, Jose M Medel.pastora\Date and Time Signed: 07/10/23 16:43 EST 06-27-2023 [...] Basal cell carcinoma 06/27/2023 Childbirth x3 Dyslipidemia ([facility]) 06/27/2023 Gastroesophageal reflux disease 06/27/2023 Hypothyroidism, adult ([facility]) 06/27/2023 Lichenification and lichen simplex chronicus 06/27/2023 Osteoarthritis 06/27/2023 Osteoporosis, 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[facility]) 06/27/2023 Prediabetes 06/27/2023 Primary osteoarthritis of [...] medication and cologuard documented in this encounter [facility] 07-30-2022 Instructions Lorraine Christine PA-C - 07/30/2022 10:15 AM EDT [...] if no improvement documented in this encounter [facility] 07-30-2022 History and physical note COLORECTAL [...] and colonoscopy ( brought to front office java developer to be scanned in) were completed and [...] was otherwise normal. Patient tolerated procedure well. Beef Cattle Farmer present: Yes, Kristin Fuentes MA Diagnostic tests reviewed for today's visit: Colonoscopy Report CT imaging MRI imaging All outside imaging and records were reviewed with the patient during consultation. Assessment Assessment and Plan: Alesha Bonilla is a 67 year old female who comes to [facility] for rectal mucous/ discharge. Upon obtaining the [...] my office with any questions or concerns. Lorraine Christine PA-C Colorectal Surgery I spent a total of 45 minutes on the date of the service which included preparing to see the patient, [id number] patient care, completing clinical documentation, obtaining and/or reviewing separately obtained history, performing a medically appropriate examination, counseling and educating the patient/family/caregiver, and ordering medications, tests, or procedures. documented in this encounter [facility] 10-10-2021 Evaluation note Encounter Date Diagnosis [...] Other 1 hour and 10 minutes spent [id number] with the patient, the majority in counseling and education [email or web address] Other 03-01-2022 Evaluation note* Encounter Date Diagnosis Assessment Notes Treatment Notes Treatment Clinical Notes Jul, Irritable bowel syndrome with diarrhea (ICD-10 - K58.0) Jul, GERD (gastroesophageal reflux disease) (ICD-10 - K21.9) Jul, Liver hemangioma (ICD-10 - D18.03) Jul, Other REASSURANCE REPEAT RUQ U/S IN 4-6 MONTHS (IN RECALL) [email or web address] Other 02-01-2022 Evaluation note* Encounter Date Diagnosis Assessment Notes Treatment Notes Treatment Clinical Notes Jun, Liver lesion (ICD-10 - K76.9) [email or web address] Other 01-27-2022 Evaluation note* Encounter Date Diagnosis [...] without obstruction or gangrene (ICD-10 - K43.9) [email or web address] Other 11-22-2021 Evaluation note* Encounter Date Diagnosis Assessment Notes Treatment Notes Treatment Clinical Notes Mar, Diarrhea (ICD-10 - R19.7) Mar, Weight loss (ICD-10 - R63.4) [email or web address] Other 11-01-2021 Evaluation note* Encounter Date Diagnosis Assessment Notes Treatment Notes Treatment Clinical Notes Mar, Abdominal cramping (ICD-10 - R10.9) Mar, Diarrhea (ICD-10 - R19.7) [email or web address] Other 10-07-2021 Evaluation note* Encounter Date Diagnosis [...] Feb, Left hip pain (ICD-10 - M25.552) [facility] [employer] Other Evaluation + Plan note No data available for this section General Surgery [place] Evaluation noteNo InformationNortWellSpan [facility] [employer] Other Evaluation note* Diagnosis Rectal discharge- Primary Other symptoms involving digestive system [facility] Rectal bleeding- Primary Hemorrhage of rectum and anus Hypothyroidism, adult ([facility]) Other specified acquired hypothyroidism Vitamin D deficiency BMI 21.0-21.9, adult Heart murmur Undiagnosed cardiac murmurs documented in this encounter [facility]* Diagnosis Onset Date Resolution Status Dysuria noneactive [facility] Work Phone: Evaluation note* Diagnosis Hypothyroidism, adult (CMS/HCC)- Primary Other specified acquired hypothyroidism Heart murmur Undiagnosed cardiac murmurs Obstructive sleep apnea syndrome Obstructive sleep apnea (adult) (pediatric) documented in this encounter [facility]* Diagnosis Hypothyroidism, adult ([facility])- Primary Other specified acquired hypothyroidism documented in this encounter [facility] HealthcareEvaluation noteNo assessment information availableMer[facility] Work Phone: Evaluation note* Diagnosis Onset Date Resolution Status Deformity of right knee joint acute Primary osteoarthritis of right knee acute [facility] Work Phone: Evaluation note* Diagnosis Rectal bleeding- Primary Hemorrhage of rectum and anus Hypothyroidism, adult ([facility]) Other specified acquired hypothyroidism Vitamin D deficiency BMI 21.0-21.9, adult Heart murmur Undiagnosed cardiac murmurs Encounter for subsequent annual wellness visit (AWV) in Medicare patient- Primary Hypothyroidism, adult ([facility]) Other specified acquired hypothyroidism Encounter for screening mammogram for malignant neoplasm of breast Vitamin D deficiency Osteoporosis, 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[facility]) Senile osteoporosis Heart murmur Undiagnosed cardiac murmurs Obstructive sleep apnea syndrome Obstructive sleep apnea (adult) (pediatric) Hypothyroidism, adult ([facility])- Primary Other specified acquired hypothyroidism Heart murmur Undiagnosed cardiac murmurs Obstructive sleep apnea syndrome Obstructive sleep apnea (adult) (pediatric) Hypothyroidism, adult ([facility])- Primary Other specified acquired hypothyroidism documented in this encounter [facility]* Diagnosis Encounter for subsequent annual wellness visit (AWV) in Medicare patient- Primary Hypothyroidism, adult ([facility]) Other specified acquired hypothyroidism Encounter for screening mammogram for malignant neoplasm of breast Vitamin D deficiency Osteoporosis, 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[facility]) Senile osteoporosis Heart murmur Undiagnosed cardiac murmurs Obstructive sleep apnea syndrome Obstructive sleep apnea (adult) (pediatric) documented in this encounter [facility]* Diagnosis Rectal bleeding- Primary Hemorrhage of rectum and anus Hypothyroidism, adult ([facility]) Other specified acquired hypothyroidism Vitamin D deficiency BMI 21.0-21.9, adult Heart murmur Undiagnosed cardiac murmurs Encounter for subsequent annual wellness visit (AWV) in Medicare patient- Primary Hypothyroidism, adult ([facility]) Other specified acquired hypothyroidism Encounter for screening mammogram for malignant neoplasm of breast Vitamin D deficiency Osteoporosis, 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[facility]) Senile osteoporosis Heart murmur Undiagnosed cardiac murmurs Obstructive sleep apnea syndrome Obstructive sleep apnea (adult) (pediatric) Hypothyroidism, adult ([facility])- Primary Other specified acquired hypothyroidism Heart murmur Undiagnosed cardiac murmurs Obstructive sleep apnea syndrome Obstructive sleep apnea (adult) (pediatric) Hypothyroidism, adult ([facility])- Primary Other specified acquired hypothyroidism documented in this encounter [facility]* Diagnosis Vaginal discharge Leukorrhea, not specified as infective [facility] Rectal bleeding- Primary Hemorrhage of rectum and anus Hypothyroidism, adult ([facility]) Other specified acquired hypothyroidism Vitamin D deficiency BMI 21.0-21.9, adult Heart murmur Undiagnosed cardiac murmurs Encounter for subsequent annual wellness visit (AWV) in Medicare patient- Primary Hypothyroidism, adult ([facility]) Other specified acquired hypothyroidism Encounter for screening mammogram for malignant neoplasm of breast Vitamin D deficiency Osteoporosis, 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[facility]) Senile osteoporosis Heart murmur Undiagnosed cardiac murmurs Obstructive sleep apnea syndrome Obstructive sleep apnea (adult) (pediatric) Hypothyroidism, adult ([facility])- Primary Other specified acquired hypothyroidism Heart murmur Undiagnosed cardiac murmurs Obstructive sleep apnea syndrome Obstructive sleep apnea (adult) (pediatric) Hypothyroidism, adult ([facility]) Other specified acquired hypothyroidism documented in this encounter [facility]* Diagnosis Rectal bleeding- Primary Hemorrhage of rectum and anus Hypothyroidism, adult ([facility]) Other specified acquired hypothyroidism Vitamin D deficiency BMI 21.0-21.9, adult Heart murmur Undiagnosed cardiac murmurs Encounter for subsequent annual wellness visit (AWV) in Medicare patient- Primary Hypothyroidism, adult ([facility]) Other specified acquired hypothyroidism Encounter for screening mammogram for malignant neoplasm of breast Vitamin D deficiency Osteoporosis, 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[facility]) Senile osteoporosis Heart murmur Undiagnosed cardiac murmurs Obstructive sleep apnea syndrome Obstructive sleep apnea (adult) (pediatric) Hypothyroidism, adult ([facility])- Primary Other specified acquired hypothyroidism Heart murmur Undiagnosed cardiac murmurs Obstructive sleep apnea syndrome Obstructive sleep apnea (adult) (pediatric) Rectal bleeding- Primary Hemorrhage of rectum and anus documented in this encounter [facility]* Diagnosis Vaginal discharge Leukorrhea, not specified as infective [facility] Rectal bleeding- Primary Hemorrhage of rectum and anus Hypothyroidism, adult ([facility]) Other specified acquired hypothyroidism Vitamin D deficiency BMI 21.0-21.9, adult Heart murmur Undiagnosed cardiac murmurs Encounter for subsequent annual wellness visit (AWV) in Medicare patient- Primary Hypothyroidism, adult ([facility]) Other specified acquired hypothyroidism Encounter for screening mammogram for malignant neoplasm of breast Vitamin D deficiency Osteoporosis, 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[facility]) Senile osteoporosis Heart murmur Undiagnosed cardiac murmurs Obstructive sleep apnea syndrome Obstructive sleep apnea (adult) (pediatric) Hypothyroidism, adult ([facility])- Primary Other specified acquired hypothyroidism Heart murmur Undiagnosed cardiac murmurs Obstructive sleep apnea syndrome Obstructive sleep apnea (adult) (pediatric) Dermatophytosis of nail- Primary Dystrophic nail Other specified disease of nail Pain around toenail, left foot Pain around toenail, right foot Difficulty walking Difficulty in walking documented in this encounter [facility]* Diagnosis Rectal bleeding- Primary Hemorrhage of rectum and anus Hypothyroidism, adult Other specified acquired hypothyroidism Vitamin D deficiency BMI 21.0-21.9, adult Heart murmur Undiagnosed cardiac murmurs Encounter for subsequent annual wellness visit (AWV) in Medicare patient- Primary Hypothyroidism, adult Other specified acquired hypothyroidism Encounter for screening mammogram for malignant neoplasm of breast Vitamin D deficiency Osteoporosis, postmenopausal Senile osteoporosis Heart murmur Undiagnosed cardiac murmurs Obstructive sleep apnea syndrome Obstructive sleep apnea (adult) (pediatric) Hypothyroidism, adult- Primary Other specified acquired hypothyroidism Heart murmur Undiagnosed cardiac murmurs Obstructive sleep apnea syndrome Obstructive sleep apnea (adult) (pediatric) Hypothyroidism, adult Other specified acquired hypothyroidism documented in this encounter [facility]* Diagnosis Rectal bleeding- Primary Hemorrhage of rectum and anus Hypothyroidism, adult Other specified acquired hypothyroidism Vitamin D deficiency BMI 21.0-21.9, adult Heart murmur Undiagnosed cardiac murmurs Encounter for subsequent annual wellness visit (AWV) in Medicare patient- Primary Hypothyroidism, adult Other specified acquired hypothyroidism Encounter for screening mammogram for malignant neoplasm of breast Vitamin D deficiency Osteoporosis, postmenopausal Senile osteoporosis Heart murmur Undiagnosed cardiac murmurs Obstructive sleep apnea syndrome Obstructive sleep apnea (adult) (pediatric) Hypothyroidism, adult- Primary Other specified acquired hypothyroidism Heart murmur Undiagnosed cardiac murmurs Obstructive sleep apnea syndrome Obstructive sleep apnea (adult) (pediatric) Encounter for subsequent annual wellness visit (AWV) [...] [facility] insufficiency [facility] - [facility]* Type Description Date Medical History high cholesterol Medical History Hypothyroidism Surgical History meniscus repair Surgical History rotator cuff repair Surgical History lipoma removed from right shoul neela Surgical History skin cancer removal from lip Hospitalization History see above [email or web address] Other History general Narrative - Reported* Type Description Date Medical History high cholesterol Medical History Hypothyroidism Medical History obstructive sleep apnea Surgical History meniscus repair Surgical History rotator cuff repair Surgical History lipoma removed from right shoul neela Surgical History skin cancer removal from lip Hospitalization History see above [email or web address] Other Hospital Discharge instructions No data available for this section General Surgery [place] Progress note No data available for this section General Surgery [place] Reason for referral (narrative)* Consultation (Routine) - Pending Review Specialty Diagnoses / Procedures Referred By Seb díaz Referred To Contact General Surgery Diagnoses Rectal bleeding Procedures NC OFFICE/OUTPATIENT NEW HIGH MDM 60 MINUTES Fay Pascal NP [address] [place] [address] Jose M Santo MD [address] [facility] [address], [address] [place] [address] Referral ID Status Reason Start Date Expiration Date Visits Requested Visits Authorized [id number] Pending Review Specialty Services Required 06/27/2023 12/24/2023 1 1 [facility] Healthcare Summary Purpose Family History Relationship Condition Age at Onset Recorded Date/T sarita father Malignant neoplasm of lung Unknown brother Malignant neoplasm of lung Unknown brother Malignant neoplasm of liver Unknown brother Unknown father Unknown family member Unknown Advance Directives Advance Directive Response Recorded Date/ Time Advance [...] nee joint Primary osteoarthritis of right knee Reason for Referral Specialty Diagnoses / Procedures Referred By Seb díaz Referred To Contact Radiology Diagnoses Heart murmur Procedures Echocardiogram 2D complete Fay Pascal NP [address] [place] [address] [facility] [address] [place] [address] Referral ID Status Reason Start Date Expiration Date Visits Requested Visits Authorized [id number] Incomplete Perform Procedure 01/07/2024 07/05/2024 1 1 Additional Source Comments REASON FOR VISIT (unrecogniz ed section and content) Reason Comments New Patient Clear discharge from rectum Reason Onset Date Comments Med Refill 04/23/2024 Reason Comments Nail care Alesha Bonilla 69yo Ne w patient presents for nail care. Patient was last seen 02/2022 for nail care. Patient relates she has used fungi foam and listerine and vinegar in the past with little results. Patient has no interest in oral treatment, but would like options at this time. SS 9 Reason Comments Med Refill Reason Comments Medicare Annual Wellness Visit Initial INFORMATION SOURCE (unrecogn ized section and content) DATE CREATED AUTHOR 05/17/2022 [facility] DATE CREATED AUTHOR AUTHOR'S ORGANIZ ATION 07/31/2022 [facility] DATE CREATED AUTHOR AUTHOR'S ORGANIZ ATION 08/06/[address] [facility] DATE CREATED AUTHOR AUTHOR'S ORGANIZ ATION 03/25/2024 [facility] DATE CREATED AUTHOR AUTHOR'S ORGANIZ ATION 09/11/2024 [facility] DATE CREATED AUTHOR AUTHOR'S ORGANIZ ATION 09/28/2024 [facility] DATE CREATED AUTHOR AUTHOR'S ORGANIZ ATION 09/30/2024 [facility] EPIC Source Comments (unrecognize d section and content) In the event this informatio n is protected by the Federal Confidentiality of Alcohol and Drug Abuse Patient Records regulations: The Federal rules restrict any use of the information to criminally investigate or prosecute any alcohol or drug abuse patient.[facility] Care Teams (unrecognized sec tion and [...] March 19, 2024 End: March 19, 2024 Prefitter Relationship Specialty Start Date End Date Phoenix Garner [address] [place], [place] [id number] PCP - General Family Medicine 07/26/22 Prefitter Relationship Specialty Start Date End Date Phoenix Garner MD [address] [place] [address] PCP - General Family Medicine 06/18/23 Prefitter Relationship Specialty Start Date End Date Phoenix Garner MD [address] [place] [address] PCP - General Family Medicine 06/18/23 Prefitter Relationship Specialty Start Date End Date Phoenix Garner MD [address] [place] [address] PCP - General [facility] Medicine 06/18/23 Team Status: Active Member Role [...] December 03, 2023 End: December 03, 2023 Prefitter Relationship Specialty Start Date End Date Phoenix Garner MD [address] [place] [address] PCP - General Family Medicine 06/18/23 Prefitter Relationship Specialty Start Date End Date Phoenix Garner MD [address] [place] [address] PCP - General Family Medicine 06/18/23 Prefitter Relationship Specialty Start Date End Date Phoenix Garner MD [address] [place] [address] PCP - General Family Medicine 06/18/23 Team Status: Active Member Role Status Dates Bright Mccall II, MD Attending Provider Active Start: March 19, 2024 Prefitter Relationship Specialty Start Date End Date Phoenix Garner MD [address] [place] [address] PCP - General Family Medicine 06/18/23 Prefitter Relationship Specialty Start Date End Date Phoenix Garner MD [address] [place] [address] PCP - General Family Medicine 06/18/23 Prefitter Relationship Specialty Start Date End Date Phoenix Garner MD [address] [place] [address] PCP - General Family Medicine 06/18/23 Prefitter Relationship Specialty Start Date End Date Phoenix Garner MD [address] [place] [address] PCP - General Family Medicine 06/18/23 Prefitter Relationship Specialty Start Date End Date Phoenix Garner MD [address] [place] [address] PCP - General Family Medicine 06/18/23 Prefitter Relationship Specialty Start Date End Date Fay Pascal, SOCIAL WORK COORDINATOR - [employer] [address] [place], [place] [phone] PCP - General Nurse Practitioner 08/18/24 Prefitter Relationship Specialty Start Date End Date Phoenix Garner MD [address] [place] [address] PCP - General Family Medicine 06/18/23 Phoenix Garner MD [address] [place] [address] PCP - ACO Reach 06/26/24 Prefitter Relationship Specialty Start Date End Date Phoenix Garner MD [address] [place] [address] PCP - General Family Medicine 06/18/23 Phoenix Garner MD [address] [place] [address] PCP - ACO Reach 06/26/24 Prefitter Relationship Specialty Start Date End Date Phoenix Garner MD [address] [place] [address] PCP - General Family Medicine 06/18/23 Phoenix Garner MD [address] [place] [address] PCP - ACO Reach 06/26/24 Prefitter Relationship Specialty Start Date End Date Phoenix Garner MD [address] [place] [address] PCP - General Family Medicine 06/18/23 Phoenix Garner MD [address] [place] [address] PCP - ACO Reach 06/26/24 Prefitter Relationship Specialty Start Date End Date Fay Pascal, SOCIAL WORK COORDINATOR - [employer] [address] [place] [address] PCP - General Nurse Practitioner 08/18/24 Prefitter Relationship Specialty Start Date End Date Phoenix Garner MD [address] [place] [address] PCP - General Family Medicine 06/18/23 Phoenix Garner MD [address] [place] [address] PCP - ACO Reach 06/26/24 Fay Pascal NP [address] [place] [address] Nurse Practitioner Family Medicine 09/29/24 Prefitter Relationship Specialty Start Date End Date Phoenix Garner MD [address] [place] [address] PCP - General Family Medicine 06/18/23 Phoenix Garner MD [address] [place] [address] PCP - ACO Reach 06/26/24 Fay Pascal NP [address] [place] [address] Nurse Practitioner Family Medicine 09/29/24 Prefitter Relationship Specialty Start Date End Date Phoenix Garner MD [address] [place] [address] PCP - General Family Medicine 06/18/23 Phoenix Garner MD [address] [place] [address] PCP - ACO Reach 06/26/24 Fay Pascal NP [address] [place] [address] Nurse Practitioner Family Medicine 09/29/24 Goals (unrecognized section and content) Goals may [...] BE BASED ON THE PRIMARY CLINICAL RECORDS. [employer] [facility]. provides no warranty or guarantee of the accuracy or completeness of information in this document.
[2025-01-12 12:18] LABS: Hematocrit 35.9 % (36.0-48.0); Hemoglobin 12.0 g/dL (12.0-16.0); Immature Granulocytes Abs Auto 0.02 10^3/uL (0.00-0.03); Immature Granulocytes Pct Auto 0.4 % (0.0-0.5); Lymphocytes Absolute Auto 0.8 10^3/uL (1.2-3.8); Mean Corpuscular HGB Conc 33.4 g/dL (29.9-35.2); Mean Corpuscular Hemoglobin 30.1 pg (26.7-34.0); Mean Corpuscular Volume 90.0 fL (81.0-99.0); Platelet Count 174 10^3/uL (150-450); Red Blood Count 3.99 10^6/uL (4.20-5.40); White Blood Count 5.1 10^3/uL (4.0-11.0)
[2025-01-12 12:37] LABS: Alanine Aminotransferase 22 U/L (14-59); Albumin Globulin Ratio 1.0; Albumin Level 3.6 g/dL (3.4-5.0); Alkaline Phosphatase 78 U/L (46-116); Anion Gap 10.3; Aspartate Amino Transferase 21 U/L (15-37); Blood Urea Nitrogen 12.0 mg/dL (7.0-18.0); Calcium 8.9 mg/dL (8.5-10.1); Carbon Dioxide 30.5 mmol/L (21.0-32.0); Chloride 105 mmol/L (98-107); Cholesterol 223 mg/dL (<=200); Estimated GFR (African America >60 (>=60 mL/min/1.73m^2); Estimated GFR (Non-African Ame >60 (>=60 mL/min/1.73m^2); Free T3 2.31 pg/mL (2.18-3.98); Globulin 3.7 g/dL; Glucose 89 mg/dL (74-106); HDL Cholesterol 85 mg/dL (40-60); Potassium 3.8 mmol/L (3.5-5.1); Sodium 142 mmol/L (136-145); Thyroid Stimulating Hormone 3.608 uIU/mL (0.358-3.740); Total Protein 7.3 g/dL (6.4-8.2); Triglycerides 22 mg/dL (<=150); VLDL CHOLESTEROL 4.4 mg/dL
== END 2025-01-12 11:21 | disposition home or self-care (01) ==
LOC: LAB 11:23
PROVIDERS: PCP Nurse Practitioner; Visit Provider Nurse Practitioner
DX: G47.33 Obstructive sleep apnea (adult) (pediatric) (principal); E03.9 Hypothyroidism, unspecified; E78.5 Hyperlipidemia, unspecified; M81.0 Age-related osteoporosis without current pathological fracture; E55.9 Vitamin D deficiency, unspecified; R73.03 Prediabetes
CPT/HCPCS: 36415; 80053; 80061; 82306; 83036; 84439; 84443; 84481; 85025

== ENCOUNTER 2025-01-26 08:48 | Outpatient (OUT) | payer MEDICARE, SELFPAY ==
--- OUTSIDE RECORDS SUMMARY | 2025-01-12 10:00 | XMS_ITS | Encounter Summary ---
Author Organization [facility] Address [address] [place] [address] Care Team Providers Care Advertising Production Manager Name Role Phone Phoenix Gannon MD Primary Care Provider [phone] Phoenix Gannon MD Unavailable Fay Pascal NP Unavailable [phone] Reason for Referral * Imaging (Routine) - Authorized Specialty Diagnoses / Procedures Referred By Seb díaz Referred To Contact Radiology Diagnoses Heart murmur Nonrheumatic aortic valve insufficiency Procedures Echocardiogram 2D complete Fay Pascal NP [address] [address] Phone: tel: fax: [facility] [address] [place] [address] Referral ID Status Reason Start Date Expiration Date Visits Requested Visits Authorized [id number] Authorized Perform Procedure 01/12/2025 07/11/2025 1 1 Reason for Visit * Reason Comments Medicare Annual Wellness Visit Initial Encounter Details Date Type Department Care Team (Late st Contact Info) Description 01/12/2025 10:00 AM EDT Office Visit [facility] [address] [place] [id number] Fay Pascal NP [address] [place] [address] Encounter for subsequent annual wellness visit (AWV) in Medicare patient (Primary Dx); Obstructive sleep apnea syndrome; Dyslipidemia ; Encounter for screening mammogram for malignant neoplasm of breast; Osteoporosis, postmenopausal ; Vitamin D deficiency; Prediabetes; Hypothyroidism, adult ; Heart murmur; Nonrheumatic aortic valve insufficiency Social History Tobacco Use Types Packs/Day Years Used Date Smoking Tobacco: Never Smokeless Tobacco: Never Alcohol Use Standard Drinks/Week Comments Not Currently 0 (1 standard drink = 0.6 oz pur e alcohol) coffee 1-2 cups per day Humiliation, Afraid, Rape, and Kick questionnair e Answer Date Recorded Within the last year, have y ou been afraid of your partner or ex-partner? No 06/26/2023 Within the last year, have y ou been humiliated or emotionally abused in other ways by your partner or ex-partner? No Within the last year, have y ou been kicked, hit, slapped, or otherwise physically hurt by your partner or ex-partner? No 06/26/2023 Within the last year, have y ou been raped or forced to have any kind of sexual activity by your partner or ex-partner? No 06/26/2023 Social Connection and Isolat ion Panel [NHANES] Answer Date Recorded In a typical week, how many times do you talk on the phone with family, friends, or neighbors? More than three times a week 06/26/2023 How often do you get togethe r with friends or relatives? More than three times a week 06/26/2023 Attends Taoism Services Not on file 06/26 Do you belong to any clubs o r organizations such as shinto groups, unions, fraternal or athletic groups, or school groups? No 06/26/2023 How often do you attend meet ings of the clubs or organizations you belong to? Never 06/26/2023 Are you , , di vorced, , never , or living with a partner? 06/26/2023 AUDIT-C Answer Date Recorded Q1: How often do you have a drink containing alcohol? Never 06/26/2023 Q2: How many drinks containi ng alcohol do you have on a typical day when you are drinking? Patient does not drink Q3: How often do you have si x or more drinks on one occasion? Never 06/26/2023 Overall Financial Resource Strain (CARDIA) Answe r Date Recorded How hard is it for you to pa y for the very basics like food, housing, medical care, and heating? Not hard at all 06/26/2023 PHQ-2 Answer Date Recorded Patient Health Questionnaire-2 Score 0 01/12/2025 [facility] - Occupational Stress Questionnaire Answer Date Recorded Do you feel stress - tense, restless, nervous, or anxious, or unable to sleep at night because your mind is troubled all the time - these days? To some extent 06/26/2023 Exercise Vital Sign Answer Date Recorde d On average, how many days pe r week do you engage in moderate to strenuous exercise (like a brisk walk)? 1 day 06/26/2023 On average, how many minutes do you engage in exercise at this level? 20 min 06/26/2023 Hunger Vital Sign Answer Date Recorded Within the past 12 months, y ou worried that your food would run out before you got the money to buy more. Never true 06/26/19 24 Within the past 12 months, t he food you bought just didn't last and you didn't have money to get more. Never true 06/26/2023 PRAPARE - Transportation Answer Date Re corded In the past 12 months, has l ack of transportation kept you from medical appointments or from getting medications? No 11/2023 In the past 12 months, has l ack of transportation kept you from meetings, work, or from getting things needed for daily living? No 06/26/2023 Housing Stability Vital Sign Answer Cyril e Recorded In the last 12 months, was t here a time when you were not able to pay the mortgage or rent on time? No 06/26/2023 In the last 12 months, how many places have you lived? 1 06/26/2023 In the last 12 months, was t here a time when you did not have a steady place to sleep or slept in a residential (including now)? No 06/26/2023 Comments Unknown Sex and Gender Information Value Date Recorded Sex Assigned at Not on file Legal Sex Female 8:21 PM EDT Gender Identity Not on file Sexual Orientation Not on file documented as of this encounter Last Filed Vital Signs Vital Sign Reading Time Taken Comments Blood Pressure 94/66 01/12/2025 10:06 AM EDT Pulse 84 01/12/2025 10:06 AM EDT Temperature 36.7 C (98.1 F) 01/12/2025 10:06 AM EDT Respiratory Rate 18 01/12/2025 10:06 AM EDT Oxygen Saturation 99% 01/12/2025 10:06 AM EDT Inhaled Oxygen Concentration - - Weight 62.1 kg (137 lb) 01/12/2025 10:06 AM EDT Height - - Body Mass Index 22.11 09/29/2024 9:14 AM EDT documented in this encounter Functional Status * Over the past 2 weeks, how often have you been bothered by any of the following problems? Question Answer Date of Assessment Author Little interest or pleasure in doing things Not at all 01/12/2025 10:13 AM EDT Erica Groves MA Feeling down, depressed, or hopeless Not at all 01/12/2025 10:13 AM EDT Erica Groves MA Patient Health Questionnaire-2 Score 0 01/12/2025 10:13 AM EDT Elizabeth Groves MA * Question Answer Date of Assessment Author Trouble falling or staying asleep, or sleeping too much Not at all 01/12/2025 10:13 AM EDT Taniya Chapman MA Feeling tired or having little energy Not at all 01/12/2025 10:13 AM AYET Erica Groves MA Poor appetite or overeating Not at all 01/12/2025 10 :13 AM EDT Taniya Groves MA Feeling bad about yourself - or that you are a failure or have let yourself or your family down Not at all 01/12/2025 10:13 AM AYET Erica Groves MA Trouble concentrating on things, such as reading the newspaper or watching television Not at all 01/12/2025 10:13 AM AYET Erica Groves MA Moving or speaking so slowly that other people could have noticed? Or the opposite - being so fidgety or restless that you have been moving around a lot more than usual. Not at all 01/12/2025 10:13 AM EDT Taniya Higuera MA Thoughts that you would be better off or hurting yourself in some way Not at all 01/12/2025 10:13 AM EDT Gabriella Groves MA Patient Health Questionnaire-9 Score 0 01/12/2025 10:13 AM EDT Elizabeth Groves MA documented as of this encounter Patient Instructions * Patient Instructions* Fay Pascal NP - 01/12/2025 10:00 AM EDT Get labs fasting Mammogram and bone density in April 2025 Will order ultrasound of heart, I will fax order to [facility] they should call you documented in this encounter Progress Notes * Fay Pascal NP - 01/12/2025 11:03 AM EDTAssociated Problem(s): Nonrheumatic aortic valve insufficiency ECHO * Fay Pascal NP - 01/12/2025 10:59 AM EDTAssociated Problem(s): Heart murmur Will order updated ECHO * Taniya Groves MA - 01/12/2025 10:00 AM EDT Pt states she has been feeling good with the 75mcg of the levothyroxine * Fay Pascal NP - 01/12/2025 10:00 AM EDT Images from the original note were not included. Alesha Barnes is a 69 y.o. female presents with chief complaint of Medicare Annual Wellness Visit Initial HPI: Diet:variety Activity: no formal exercise Mental Health Concerns:no Falls in the last year:no Still driving:yes Do you pay your bills:yes Any hearing problems:yes Any Vision problems: yes, glasses Any Hospitalizations in the last year:no Specialist:no Concerns: Murmur: occ dyspnea when climbing stairs, no chest pain, pressure or palpitations SUBJECTIVE: MEDICATIONS: Current Outpatient Medications Medication Instructions Calcium Citrate-Vitamin D (Yovanny-Citrate Plus Vitamin D) 250-2.5 MG-MCG tablet 1 tablet, Oral, 2 times daily levothyroxine (SYNTHROID, LEVOXYL) 75 mcg, Oral, Daily before breakfast ALLERGIES: No Known Allergies REVIEW OF SYMPTOMS: Review of Systems Constitutional: Negative for appetite change, chills and fever. HENT: Negative for congestion, ear pain and sore throat. Eyes: Negative for pain, [...] Does not bruise/bleed easily. Endocrine: Negative for polydipsia, polyphagia and polyuria. Allergic/Immunologic: Negative for environmental allergies and food allergies. PAST MEDICAL HISTORY Past Medical History: Diagnosis Date Basal cell carcinoma 06/27/2023 Childbirth x3 Dyslipidemia 06/27/2023 Gastroesophageal reflux disease 06/27/2023 Hypothyroidism, adult 06/27/2023 Lichenification and lichen simplex chronicus 06/27/2023 Osteoarthritis 06/27/2023 Osteoporosis, postmenopausal 06/27/2023 Prediabetes 06/27/2023 Primary osteoarthritis of right [...] father; Colon cancer in her brother; Hyperlipidemia (age of onset: 99) in her mother; Liver cancer in her brother; Lung cancer in her father. OBJECTIVE: Visit Vitals BP 94/66 (BP Location: Left arm, Patient Position: Sitting, BP Cuff Size: Adult long) Pulse 84 Temp 98.1 ??F (Temporal) Resp 18 Wt 137 lb SpO2 99% BMI 22.11 kg/m?? Smoking Status Never BSA 1.7 m?? Physical Exam Vitals and nursing note reviewed. Constitutional: General: She is not in acute distress. Appearance: Normal appearance. She is not ill-appearing. HENT: Head: Normocephalic and atraumatic. Right Ear: [...] is normal. No respiratory distress. Breath sounds: Normal breath sounds. No wheezing or rhonchi. Abdominal: General: Bowel sounds are normal. There [...] normal. Judgment: Judgment normal. ASSESSMENT AND PLAN: Follow up in about 3 months (around 04/14/2025) for Recheck. Problem List Items Addressed This Visit Osteoporosis, postmenopausal No DEXA on file, I do recommend DEXA scan Does take calcium/vit d supplement Relevant Orders DEXA bone density Comprehensive metabolic panel Vitamin D deficiency Takes calcium/vit d supplement Relevant Orders Comprehensive metabolic panel Vitamin D 25 hydroxy Prediabetes Relevant Orders Comprehensive metabolic panel Hemoglobin A1c Hypothyroidism, adult Currently taking levothyroxine Check labs yearly and prn dose changes or changes in sxs Relevant Medications levothyroxine (Synthroid, Levoxyl) 75 MCG tablet Other Relevant Orders CBC and differential Comprehensive metabolic panel TSH T4, free T3, free Dyslipidemia Hx of this per lab finding, no statin use Recommend low fat diet Relevant Orders Comprehensive metabolic panel Lipid panel Heart murmur Will order updated ECHO Relevant Orders Echocardiogram 2D complete Obstructive sleep apnea syndrome Elevated pulmonary artery pressures noted on ECHO You have a diagnosis of obstructive sleep apnea. It is recommended that you wear your PAP device any time while in bed sleeping. Not using the PAP device can increase your risk of elevated/uncontrolled high blood pressure, atrial fibrillation, heart attack, stroke, or sudden . Compliance with PAP: How many hours of use per night: Do you feel more refreshed in the morning: Company that supplies your machine and tubing/filters etc: Doctor that manages your RIVERA: Relevant Orders CBC and differential Encounter for screening mammogram for malignant neoplasm of breast Due in 05/13 Will provide order Relevant Orders Bilateral screening mammogram Encounter for subsequent annual wellness visit (AWV) in Medicare patient - Primary Reviewed Ht/Wt/BMI Recommend eye exam yearly Recommend dental exams twice a year Balance work/leisure activities Exercises is recommended most days of the week (appropriate as chronic conditions allow) Follow up yearly and prn Nonrheumatic aortic valve insufficiency ECHO Relevant Orders Echocardiogram 2D complete * Fay Pascal NP - 01/12/2025 6:26 AM EDTAssociated Problem(s): Hypothyroidism, adult Currently taking levothyroxine Check labs yearly and prn dose changes or changes in sxs * Fay Pascal NP - 01/12/2025 6:24 AM EDTAssociated Problem(s): Vitamin D deficiency Takes calcium/vit d supplement * Fay Pascal NP - 01/12/2025 6:24 AM EDTAssociated Problem(s): Osteoporosis, postmenopausal No DEXA on file, I do recommend DEXA scan Does take calcium/vit d supplement * Fay Pascal NP - 01/12/2025 6:23 AM EDTAssociated Problem(s): Encounter for screening mammogram for malignant neoplasm of breast Due in 05/13 Will provide order * Fay Pascal NP - 01/12/2025 6:21 AM EDTAssociated Problem(s): Encounter for subsequent annual wellness visit (AWV) in Medicare patient Reviewed Ht/Wt/BMI Recommend eye exam yearly Recommend dental exams twice a year Balance work/leisure activities Exercises is recommended most days of the week (appropriate as chronic conditions allow) Follow up yearly and prn * Fay Pascal NP - 01/12/2025 6:21 AM EDTAssociated Problem(s): Dyslipidemia Hx of this per lab finding, no statin use Recommend low fat diet * Fay Pascal NP - 01/12/2025 6:20 AM EDTAssociated Problem(s): Obstructive sleep apnea syndrome Elevated pulmonary artery pressures noted on ECHO You have a diagnosis of obstructive sleep apnea. It is recommended that you wear your PAP device any time while in bed sleeping. Not using the PAP device can increase your risk of elevated/uncontrolled high blood pressure, atrial fibrillation, heart attack, stroke, or sudden . Compliance with PAP: How many hours of use per night: Do you feel more refreshed in the morning: Company that supplies your machine and tubing/filters etc: Doctor that manages your RIVERA: documented in this encounter Plan of Treatment Scheduled Orders Name Type Priority Associated Diagnoses Orde r Schedule Bilateral screening mammogram Imaging Routine Encounter for screening mammogram for malignant neoplasm of breast Expected: 05/11/2025 (Approximate), Expires: 03/14/2026 DEXA bone density Imaging Routine Osteoporosis, postmenopausal Expected: 05/11/2025 (Approximate), Expires: 01/12/2026 CBC and differential Lab Routine Obstructive sleep apnea syndrome Hypothyroidism, adult Expected: 01/12/2025 (Approximate), Expires: 01/12/2026 Comprehensive metabolic panel Lab Routine Dyslipidemia Osteoporosis, postmenopausal Vitamin D deficiency Prediabetes Hypothyroidism, adult Expected: 01/12/2025 (Approximate), Expires: 01/12/2026 Lipid panel Lab Routine Dyslipidemia Expected: 01/12/2025 (Approximate), Expires: 01/12/2026 Vitamin D 25 hydroxy Lab Routine Vitamin D deficiency Expected: 01/12/2025 (Approximate), Expires: 01/12/2026 TSH Lab Routine Hypothyroidism, adult Expected: 01/12/2025 (Approximate), Expires: 01/12/2026 T4, free Lab Routine Hypothyroidism, adult Expected: 01/12/2025 (Approximate), Expires: 01/12/2026 T3, free Lab Routine Hypothyroidism, adult Expected: 01/12/2025 (Approximate), Expires: 01/12/2026 Hemoglobin A1c Lab Routine Prediabetes Expected: 01/12/2025 (Approximate), Expires: 01/12/2026 Echocardiogram 2D complete Echocardiography Routine Heart murmur Nonrheumatic aortic valve insufficiency Expected: 01/12/2025 (Approximate), Expires: 01/12/2027 documented as of this encounter Visit Diagnoses Diagnosis Encounter for subsequent annual wellness visit (AWV) in Medicare patient- Primary Obstructive sleep apnea syndrome Obstructive sleep apnea (adult) (pediatric) Dyslipidemia Other and unspecified hyperlipidemia Encounter for screening mammogram for malignant neoplasm of breast Osteoporosis, postmenopausal Senile osteoporosis Vitamin D deficiency Prediabetes Other abnormal glucose Hypothyroidism, adult Other specified acquired hypothyroidism Heart murmur Undiagnosed cardiac murmurs Nonrheumatic aortic valve insufficiency documented in this encounter Additional Health Concerns Assessment Noted Time PHQ-9 Depression Total Score: 0 01/13/20 10:13 AM EDT documented as of this encounter Care Teams Advertising Production Manager Relationship Specialty Start Date End Date Phoenix Gannon MD PCP - General Family Medicine 06/18/23 Phoenix Gannon MD [address] [place] [id number] PCP - ACO Reach 06/26/24 Fay Pascal NP [address] [place] [phone] Nurse Practitioner Family Medicine 09/29/24 documented as of this encounter
--- OUTSIDE RECORDS SUMMARY | 2025-01-26 08:53 | XMS_ITS | Encounter Summary ---
Author Organization [facility] Address [address] [place] [address] Care Team Providers Care Journeyman Operator Assistant Name Role Phone Phoenix Gannon MD Primary Care Provider [phone] Phoenix Gannon MD Primary Care Provider [phone] Phoenix Gannon MD Unavailable Fay Pascal NP Unavailable [phone] Encounter Details Date Type Department Care Team (Late st Contact Info) Description 05/10/2023 Clinisync Result Encounter [facility] External Department Unsolicited Phoenix Gannon MD [address] [place] [phone] Social History Tobacco Use Types Packs/Day Years Used Date Smoking Tobacco: Never Assessed Comments Unknown Sex and Gender Information Value Date Recorded Sex Assigned at Not on file Legal Sex Female 8:21 PM EDT Gender Identity Not on file Sexual Orientation Not on file documented as of this encounter Plan of Treatment Not on file documented as of this encounter Procedures Procedure Name Priority Date/Time Associated Diagnosis Comments MM TOMOSYNTHESIS SCREENING BI 05/10/2023 2:49 PM EST documented in this encounter Results * MM TOMOSYNTHESIS SCREENING BI (05/10/2023 2:49 PM EST) Anatomical Region Laterality Modality Other 05/10/2023 2:49 PM EST Narrative 05/10/2023 2:50 PM EST [facility] [place] [id number] Mammography Report Signed Patient: Alesha Bonilla MR#: [id number] : 1955 Acct:[id number] Age/Sex: 67 / F ADM Date: 05/10/23 Loc: MAMMO Attending Dr: Phoenix Gannon M.D. Ordering Physician: Phoenix Gannon M.D. Results: Date of Service: 05/10/23 Follow Up: Procedure(s): MM tomosynthesis screening BI Accession Number(s): [id number] cc: Phoenix Gannon M.D. Patient Name: ALESHA BONILLA MR#: [id number] : 1955 Exam Date: 05/10/2023 Ordering Doctor: DR Phoenix Rios RADIOLOGY REPORT PROCEDURE: MM TOMOSYNTHESIS SCREENING BI COMPARISON: MG MAMM SCREEN 3D NEETA CAD, 05/09/2022. MG MAMM SCREEN 3D NEETA CAD, 05/08/2021. MG MAMM SCREEN NEETA W CAD, 05/03/2020. MG MAMM SCREEN NEETA W CAD, 03/29/2017. INDICATIONS: Screening Calculator Name NCI Breast Cancer Risk Assessment Tool 5 Year Breast Cancer Risk 1.10% Lifetime Breast Cancer Risk 3.80% Personal Breast Cancer No Personal Ovarian Cancer [...] BIOPSIED. Dictated by: Bhavin Johnson M.D. on 05/10/2023 at 14:48 Approved by: Bhavin Johnson M.D. on 05/10/2023 at 14:49 Dictated By: Bhavin Johnson M.D. Signed By: 05/10/23 1954 DD/ 1449 TD/TT: Sharepoint Application Developer: Procedure Note Radiology, Radiologist, MD - 05/10/2023 [place] [address] Mammography Report Signed Patient: Alesha Bonilla AMR#: [id number] : 6Acct:[id number] Age/Sex: 67 / FADM Date: 05/10/23 Loc: MAMMO Attending Dr: Phoenix Gannon M.D. Ordering Physician: Phoenix Gannon M.D.Results: Date of Service: 05/10/23Follow Up: Procedure(s): MM tomosynthesis screening BI Accession Number(s): [id number] cc: Phoenix Gannon M.D. Patient Name: ALESHA BONILLA MR#: [id number] : 1955 Exam Date: 05/10/2023 Ordering Doctor: DR Phoenix Rios RADIOLOGY REPORT PROCEDURE: MM TOMOSYNTHESIS SCREENING BI COMPARISON: MG MAMM SCREEN 3D NEETA CAD, 05/09/2022. MG MAMM SCREEN 3DBIL CAD, 05/08/2021. MG MAMM SCREEN NEETA W CAD, 05/03/2020. MG MAMM SCREENBIL W CAD, 03/29/2017. INDICATIONS: Screening Calculator Name NCI Breast Cancer Risk Assessment Tool 5 Year Breast Cancer Risk 1.10% Lifetime Breast Cancer Risk 3.80% Personal Breast Cancer No Personal Ovarian Cancer No Treatments None Family Cancers Father with lung cancer at age 43; Brother with liver cancer at age 65; Brother with colon/lung cancer at age 46; Brother withlung cancer at age 74. LOCATION: [facility] BREAST COMPOSITION: Scattered areas fibroglandular density. FINDINGS: DIAGNOSTIC CATEGORY 1--NEGATIVE. RIGHT BREAST: No significant suspicious finding. No significant changehas occurred. LEFT BREAST: No significant suspicious finding. No significant changehas occurred. RECOMMENDATIONS: ROUTINE MAMMOGRAM AND CLINICAL EVALUATION IN 12 MONTHS. PLEASE NOTE: A NORMAL MAMMOGRAM DOES NOT EXCLUDE THE POSSIBILITY OFBREAST CANCER. A CLINICALLY SUSPICIOUS PALPABLE LUMP SHOULD BE BIOPSIED. Dictated by: Bhavin Johnson M.D. on 05/10/2023 at 14:48 Approved by: Bhavin Johnson M.D. on 05/10/2023 at 14:49 Dictated By: Bhavin Johnson M.D. Signed By:05/10/23 1450 DD/ 1449 TD/TT: Sharepoint Application Developer: Phoenix Gannon MD [facility] Final Result documented in this encounter Visit Diagnoses Not on filedocumented in this encounter Care Teams Journeyman Operator Assistant Relationship Specialty Start Date End Date Phoenix Gannon MD PCP - General Family Medicine 05/20/22 06/17/23 Phoenix Gannon MD PCP - General Family Medicine 06/18/23 Phoenix Gannon MD [address] [place] [address] PCP - ACO Reach 06/26/24 Fay Pascal NP [address] [place] [address] Nurse Practitioner Family Medicine 09/29/24 documented as of this encounter
--- OUTSIDE RECORDS SUMMARY | 2025-01-26 08:53 | XMS_ITS | Encounter Summary ---
Author Organization [facility] Address [address] [place] [address] Care Team Providers Care Financial Wellness Coach Name Role Phone Phoenix Gannon MD Primary Care Provider [phone] Phoenix Gannon MD Unavailable Fay Pascal DIAL PRINTER Unavailable [phone] Encounter Details Date Type Department Care Team (Late st Contact Info) Description 07/04/2023 Orders Only [facility] [address] [place] [address] Fay Pascal, DELMY [address] [place] [address] Social History Tobacco Use Types Packs/Day Years [...] any clubs o r organizations such as yazidi groups, unions, fraternal or athletic groups, or [...] Date Recorded Patient Health Questionnaire-2 Score 0 06/27/2023 [facility] Questionnaire Answer Date [...] place to sleep or slept in a fci (including now)? No 06/26/2023 Comments Unknown Sex and Gender Information Value Date Recorded Sex Assigned at Not on file Legal Sex Female 8:21 PM EDT Gender Identity Not on file Sexual Orientation Not on file documented as of this encounter Plan of Treatment Not on file documented as of this encounter Visit Diagnoses Not on filedocumented in this encounter Care Teams Financial Wellness Coach Relationship Specialty Start Date End Date Phoenix Gannon MD PCP - General Family Medicine 06/18/23 Phoenix Gannon MD [address] [place] [phone] PCP - ACO Reach 06/26/24 Fay Pascal NP [address] [place] [address] Nurse Practitioner Family Medicine 09/29/24 documented as of this encounter
--- OUTSIDE RECORDS SUMMARY | 2025-01-26 08:53 | XMS_ITS | Clinical Summary ---
Author Organization [facility] Address [address], [address] [place] [address] Care Team Providers Care Dance Historian Name Role Phone Fay Pascal APRN, NP Primary Care Provide r Allergies No known active allergies Medications levothyroxine (SYNTHROID) 75 MCG tablet Take 1 tablet by mouth every morning (before breakfast) 06/09/2024 Active Calcium Carb-Cholecalci ferol (CALCIUM CARBONATE-VITAM IN D3 PO) Take by mouth Active Probiotic Product (PROBIOTIC DAILY PO) Take by mouth Active Active Problems No known active problems Family History Medical History Relation Name Comments Breast Cancer Maternal Aunt Deep Vein Thrombosis Neg Hx Ovarian Cancer Neg Hx Relation Name Status Comments Maternal Aunt Social History Tobacco Use Types Packs/Day Years Used Date Smoking Tobacco: Never Smokeless Tobacco: Never Tobacco Cessation:Counseling Given: Not Answered Alcohol Use Standard Drinks/Week Comments Yes 0 (1 standard drink = 0.6 oz pur e alcohol) [facility] Utilities Answer Date Recorded In the past 12 months has e electric, gas, oil, or water company threatened to shut off services in your home? No 08/20/2024 PHQ-2 Answer Date Recorded PHQ-9 Total Score 0 08/20/2024 Hunger Vital Sign Answer Date Recorded Within the past 12 months, y ou worried that your food would run out before you got the money to buy more. Never true 08/21/19 25 Within the past 12 months, t he food you bought just didn't last and you didn't have money to get more. Never true 08/20/2024 PRAPARE - Transportation Answer Date Re corded In the past 12 months, has l ack of transportation kept you from medical appointments or from getting medications? No 07/2024 In the past 12 months, has l ack of transportation kept you from meetings, work, or from getting things needed for daily living? No 08/20/2024 Housing Stability Vital Sign Answer Cyril e Recorded In the last 12 months, was t here a time when you were not able to pay the mortgage or rent on time? No 08/20/2024 In the past 12 months, how m any times have you moved where you were living? 0 08/20/2024 At any time in the past 12 m [facility], were you homeless or living in a alf (including now)? No 08/20/2024 Food Insecurity Answer Date Recorded Within the past 12 months, y ou worried that your food would run out before you got the money to buy more. 1 08/20/2024 Within the past 12 months, t he food you bought just didn't last and you didn't have money to get more. 1 08/20/2024 Comments Unknown Sex and Gender Information Value Date Recorded Sex Assigned at Not on file Legal Sex Female 10:03 AM EDT Gender Identity Not on file Sexual Orientation Not on file Last Filed Vital Signs Vital Sign Reading Time Taken Comments Blood Pressure 118/70 09/10/2024 8:43 AM EDT Pulse - - Temperature - - Respiratory Rate - - Oxygen Saturation - - Inhaled Oxygen Concentration - - Weight 62.1 kg (137 lb) 09/10/2024 8:43 AM EDT Height 167.6 cm (5' 6 ) 09/10/2024 8:43 AM EDT Body Mass Index 22.11 09/10/2024 8:43 AM EDT Plan of Treatment Health Maintenance Due Date Last Done Comments Hepatitis C screen 1973 DTaP/Tdap/Td vaccine (1 - Tdap) 1974 Lipids 1995 Colonoscopy 2000 Colorectal Cancer Screen 2000 FIT/FOBT: Average risk 2000 Fecal-DNA (Cologuard): [place] ge risk 2000 Sigmoidoscopy/CT colonography 2000 Shingles vaccine (1 of 2) 2005 DEXA (modify frequency per FRAX score) 2010 COVID-19 Vaccine ( - 2023-2 5 season) 2024 Breast cancer screen 05/10/2024 05/10/2022, 03/29/2017 Annual Wellness Visit (Medicare) 08/18/2024 Flu vaccine (#1) 12/18/2024 Depression Screen 08/20/2025 08/20/2024, 08/20/2024 Respiratory Syncytial Virus (RSV) or age 60 yrs+ (1 - 1-dose 75+ series) 2030 Pneumococcal 50+ years Vaccine Completed 1 , 07/15/2014, 08/18/2009 Hepatitis A vaccine Aged Out No longe r eligible based on patient's age to complete this topic Hepatitis B vaccine Aged Out No longe r eligible based on patient's age to complete this topic Hib vaccine Aged Out No longer eligi ble based on patient's age to complete this topic Meningococcal (ACWY) vaccine Aged Out No longer eligible based on patient's age to complete this topic Meningococcal B vaccine Aged Out No l onger eligible based on patient's age to complete this topic Polio vaccine Aged Out No longer elig ible based on patient's age to complete this topic Insurance MEDICARE AETNA SENIOR MEDICARE SUPP Care Teams Dance Historian Relationship Specialty Start Date End Date Fay Pascal, GRANULATING BLENDER - CATALOG LIBRARIAN [facility] [place] [address] PCP - General Nurse Practitioner 08/18/24
--- OUTSIDE RECORDS SUMMARY | 2025-01-26 08:53 | XMS_ITS | Encounter Summary ---
Author Organization [facility] Address [address] [place] [address] Care Team Providers Care Wrist Liner Name Role Phone Phoenix Gannon MD Primary Care Provider [phone] Phoenix Gannon MD Unavailable Fay Pascal HAND SHAPER Unavailable [phone] Encounter Details Date Type Department Care Team (Late st Contact Info) Description 07/18/2023 External Result Encounter [facility] External Department Unsolicited Fay Pascal, HAND SHAPER [address] [place] [phone] Social History Tobacco Use Types Packs/Day Years [...] than three times a week 06/26/2023 Attends [employer] Not on file 06/26 Do you belong to any clubs o r organizations such as faith groups, unions, fraternal or athletic groups, or [...] Recorded Patient Health Questionnaire-2 Score 0 06/27/2023 [facility] Answer Date [...] Procedure Name Priority Date/Time Associated Diagnosis Comments CT ABDOMEN PELVIS W IV CONTRAST 07/18/2023 11:44 AM EST documented in this encounter Results * CT abdomen pelvis w IV contrast (07/18/2023 11:44 AM EST) Anatomical Region Laterality Modality Body, Pelvis, Abdomen Computed T omography 07/18/2023 11:4 4 AM EST Impressions 07/18/2023 11:51 AM EST No significant change in the patient's known liver hemangiomas/cysts when compared to prior studies. No new lesion is seen. No enhancing renal mass. Impression dictated by: Jose Miguel Cox Jr., D.O.07/18/2023 11:49 AM Dictation Location: [place] [address] Transcribed By: [facility] 07/18/23 1149 Dictated By: Jose Miguel Cox Jr, DO 07/18/23 1144 Signed By: <Electronically signed by Jose Miguel Cox Jr, DO in OV> 07/18/23 1149 Narrative 07/18/2023 11:51 AM EST [facility] [address] [place], [place] [id number] CT Scan Report Signed Patient: Alesha Barnes MR#: [id number] : 1955 Acct:[id number] Age/Sex: 68 / F ADM Date: 07/18/23 Loc: CT Room: Type: [facility] Attending Dr: Fay Pascal Copies [...] Uterus is grossly unremarkable. No adnexal mass.] Peritoneum/Retroperitoneum:No free air, free fluid or lymphadenopathy.[ Abd wall/Bones:Abdominal wall demonstrates uncomplicated umbilical/ventral hernias. Osseous structures demonstrate degenerative change.[ CT/CT abdomen pelvis w con Procedure Note Radiology, Radiologist, - 07/18/2023 [facility] [address] [place], [place] [id number] CT Scan Report Signed Patient: Alesha Barnes AMR#: [id number] : 6Acct:[id number] Age/Sex: 68 / FADM Date: 07/18/23 Loc: CT Room:Type: [facility] Attending Dr: Fay Pascal Copies to: CHARLOTTE Ann Ordering Provider: CHARLOTTE Ann Date of Service: 07/18/23 CT/CT abdomen pelvis w con: K78.9, K62.5 CT ABDOMEN AND PELVIS WITH INTRAVENOUS CONTRAST: CLINICAL HISTORY: Follow-up liver lesions in left kidney lesion. Rectalbleeding due to hemorrhoids 3 months COMPARISON: CT abdomen and pelvis 06/19/2021 MRI abdomen 07/05/2021 TECHNIQUE: Spiral images were obtained through the abdomen and pelvisfollowing the administration of intravenous contrast. This CT exam was performed using one or morefollowing dose reduction techniques: Automated exposure control, adjustment of the mA and/or kVaccording to patient size, or use of iterative reconstruction technique. FINDINGS: Lung Bases: [No acute findings.] Organs:Suboptimal evaluation of the liver lesions due to single phasetechnique. The previously identified hepatic cysts and hemangiomas are grossly unchanged from theprior studies. No new suspicious lesion is seen. Portal vein gallbladder spleen and adrenalglands appear unremarkable. Cyst left kidney. Right kidney appears unremarkable. Abdominal aortaappears normal in caliber. Pancreatic duct dilatation without obstructing lesion, unchanged fromprior studies.[ GI: Stomach is grossly unremarkable. Small bowel appears nondilated. Noacute colonic abnormality. Pelvis:[Urinary bladder is grossly unremarkable. Uterus is grosslyunremarkable. No adnexal mass.] Peritoneum/Retroperitoneum:No free air, free fluid or lymphadenopathy.[ Abd wall/Bones:Abdominal wall demonstrates uncomplicated umbilical/ventralhernias. Osseous structures demonstrate degenerative change.[ CT/CT abdomen pelvis w con IMPRESSION: No significant change in the patient's known liver hemangiomas/cysts whencompared to prior studies. No new lesion is seen. No enhancing renal mass. Impression dictated by: Jose Miguel Cox Jr., D.[facility]07/18/2023 11:49 AM Dictation Location: [id number] Transcribed By: BRIE 07/18/23 1149 Dictated By: Jose Miguel Cox Jr, DO 07/18/23 1144 Signed By: <Electronically signed by Jose Miguel Cox Jr, DO inOV> 07/18/23 1149 Fay Pascal NP IMG CT PROCEDURES Final Result documented in this encounter Visit Diagnoses Not on filedocumented in this encounter Care Teams Wrist Liner Relationship Specialty Start Date End Date Phoenix Gannon MD PCP - General Family Medicine 06/18/23 Phoenix Gannon MD [address] [place] [address] PCP - ACO Reach 06/26/24 Fay Pascal NP [address] [place] [address] Nurse Practitioner Family Medicine 09/29/24 documented as of this encounter
--- OUTSIDE RECORDS SUMMARY | 2025-01-26 08:53 | XMS_ITS | Clinical Summary ---
Author Organization [employer] [facility] Address [id number] [address] [place] [address] Care Team Providers Care Bullard Operator Name Role Phone Phoenix Gannon MD Primary Care Provider [phone] Allergies No known active allergies Medications levothyroxine (SYNTHROID, LEVOTHROID) 75 MCG tablet Take 1 tablet by mouth daily. 3 02/11/2017 Active SUPREP BOWEL PREP KIT 17.5-3.13-1.6 gram recon soln 177 ml,actual weight, 2 times daily, Oral 177 mL 02/15/2021 Active Active Problems No known active problems Family History Medical History Relation Name Comments Cancer Brother liver Cancer Father lung Breast cancer Maternal Aunt Relation Name Status Comments Brother Daughter 1 Alive Daughter 2 Alive Father Maternal Aunt Mother Alive Sister Alive Son Alive Social History Tobacco Use Types Packs/Day Years Used Date Smoking Tobacco: Never Smokeless Tobacco: Never Alcohol Use Standard Drinks/Week Comments No 0 (1 standard drink = 0.6 oz pur e alcohol) Childcare Answer Date Recorded Childcare Unknown 10/29/2018 Employment Answer Date Recorded Employment Unknown 10/29/2018 Purpose - Life Answer Date Recorded Purpose and direction in life Unknown Comments No Sex and Gender Information Value Date Recorded Sex Assigned at Not on file Legal Sex Female 11:32 AM EDT Gender Identity Not on file Sexual Orientation Not on file Last Filed Vital Signs Vital Sign Reading Time Taken Comments Blood Pressure 101/56 03/06/2021 1:06 PM EDT Pulse 82 03/06/2021 1:06 PM EDT Temperature 36.8 C (98.2 F) 03/06/2021 1:06 PM EDT Respiratory Rate 16 03/06/2021 1:06 PM EDT Oxygen Saturation 100% 03/06/2021 1:06 PM EDT Inhaled Oxygen Concentration - - Weight 60.8 kg (134 lb) 03/06/2021 8:48 AM EDT Height 167.6 cm (5' 6 ) 03/06/2021 8:48 AM EDT Body Mass Index 21.63 03/06/2021 8:48 AM EDT Plan of Treatment Health Maintenance Due Date Last Done Comments Depression Screening 1967 Tobacco Screening 1967 Adult BMI Screening 1973 DTaP,Tdap and Td Vaccines (1 - Tdap) 1974 Colonoscopy 2000 Zoster (Shingles) Vaccine (1 of 2) 2005 Fall Risk Screening 2020 Influenza Vaccine 01/18/2025 Medical Devices Not on file Insurance MEDICARE [employer]ET [employer] Care Teams Bullard Operator Relationship Specialty Start Date End Date Phoenix Gannon MD PCP - General Family Medicine 11/16/20
--- OUTSIDE RECORDS SUMMARY | 2025-01-26 08:53 | XMS_ITS | Clinical Summary ---
Author Organization [facility] Address [address] [place] [address] Care Team Providers Care Charging Machine Operator Name Role Phone Phoenix Gannon MD Primary Care Provider [phone] Phoenix Gannon MD Unavailable Fay Pascal NP Unavailable [phone] Allergies No known active allergies Medications Calcium Citrate-Vitamin D (Yovanny-Citrate Plus Vitamin D) 250-2.5 MG-MCG tablet Take 1 tablet by mouth in the morning and 1 tablet in the evening. Active levothyroxine (Synthroid, Levoxyl) 75 MCG tabletIndicatio ns:Hypothyroidi sm, adult Take 1 tablet (75 mcg) by mouth in the morning. Take before meals. 90 tablet 5 04/12/20 25 Active levothyroxine (Synthroid, Levoxyl) 75 MCG tabletIndicatio ns:Hypothyroidi sm, adult Take 1 tablet (75 mcg) by mouth in the morning. Take before meals. 90 tablet 01/13/20 25 Discontinu ed(Reorder ) Active Problems Problem Noted Date Diagnosed Date Nonrheumatic aortic valve insufficiency 01/13/20 Assessment & Plan (01/12/2025 11:03 AM EDT): ECHO Obstructive sleep apnea syndrome 01/07/2024 Assessment & Plan (01/12/2025 6:20 AM EDT): Elevated pulmonary artery pressures noted on ECHO [...] tubing/filters etc: Doctor that manages your RIVERA: Assessment & Plan (02/19/2024 10:10 AM EDT): Elevated pulmonary artery pressures noted on ECHO Does not wear PAP Assessment & Plan (01/07/2024 11:59 AM EDT): Non compliant with PAP use Lactose intolerance 01/07/2024 IBS (irritable bowel syndrome) 01/07/2024 History of colon polyps 01/07/2024 Hemorrhoid 01/07/2024 Diverticulosis 01/07/2024 Abdominal pain 01/07/2024 Encounter for screening mamm ogram for malignant neoplasm of breast 01/07/2024 Assessment & Plan (01/12/2025 6:23 AM EDT): Due in 05/13 Will provide order Encounter for subsequent [facility] wellness visit (AWV) in Medicare patient 01/07/2024 Assessment & Plan (01/12/2025 6:21 AM EDT): Reviewed Ht/Wt/BMI Recommend eye exam yearly Recommend dental exams twice a year Balance work/leisure activities Exercises is recommended most days of the week (appropriate as chronic conditions allow) Follow up yearly and prn Assessment & Plan (01/07/2024 11:58 AM EDT): Reviewed Ht/Wt/BMI Recommend eye exam yearly Recommend dental exams twice a year Balance work/leisure activities Exercises is recommended most days of the week (appropriate as chronic conditions allow) Follow up yearly and prn Lesion of liver 07/15/2023 Right hip pain 06/27/2023 Primary osteoarthritis of right knee 06/27/2023 Osteoporosis, postmenopausal 06/27/2023 Assessment & Plan (01/12/2025 6:25 AM EDT): No DEXA on file, I do recommend DEXA scan Does take calcium/vit d supplement Osteoarthritis 06/27/2023 Vitamin D deficiency 06/27/2023 Assessment & Plan (01/12/2025 6:24 AM EDT): Takes calcium/vit d supplement Prediabetes 06/27/2023 Hypothyroidism, adult 06/27/2023 Assessment & Plan (01/12/2025 6:26 AM EDT): Currently taking levothyroxine Check labs yearly and prn dose changes or changes in sxs Assessment & Plan (02/19/2024 10:13 AM EDT): Pt felt that use of 100mcg was [...] which may be causing issues as well Assessment & Plan (01/07/2024 10:59 AM EDT): Will increase thyroid dose back to 100mcg Recheck labs in 8 weeks Assessment & Plan (06/27/2023 1:00 PM EST): Check labs Results of thyroid labs, will lower thyroid dose to 75mcg Lichenification and lichen simplex chronicus 12/2023 Dyslipidemia 06/27/2023 Assessment & Plan (01/12/2025 6:21 AM EDT): Hx of this per lab finding, no statin use Recommend low fat diet SCC (squamous cell carcinoma) 06/27/2023 Basal cell carcinoma 06/27/2023 BMI 21.0-21.9, adult 06/27/2023 Rectal bleeding 06/27/2023 Overview (08/01/2023): Colonoscopy 07/31/23: mild diverticulosis Assessment & Plan (06/27/2023 10:54 AM EST): Check cbc, sed rate, iron ferritin, chem [...] have her see general surgeon for evaluation Heart murmur 06/27/2023 Overview (02/19/2024): ECHO: 01/2024 mild regurg TV and MV, aortic mild-mod Assessment & Plan (01/12/2025 10:59 AM EDT): Will order updated ECHO Assessment & Plan (02/19/2024 10:10 AM EDT): Reviewed ECHO Will think about cardiology appt : she asked about it, if she wants it I will refer Assessment & Plan (01/07/2024 11:59 AM EDT): Does have murmur, no acute symptoms,however does have sleep apnea, non compliant with PAP use Assessment & Plan (06/27/2023 10:57 AM EST): Not symptomatic, however we will work up with ECHO after done with rectal bleeding Resolved Problems Problem Noted Date Diagnosed Date Resolved Date Gastroesophageal reflux disease 06/27/2023 06/27/2023 Encounters Date Type Department Care Team Description 01/12/2025 10:00 AM EDT Office Visit [facility] [address] [place] [phone] Fay Pascal NP Encounter for subsequent annual wellness visit (AWV) in Medicare patient (Primary Dx); Obstructive sleep apnea syndrome; Dyslipidemia ; Encounter for screening mammogram for malignant neoplasm of breast; Osteoporosis, postmenopausal ; Vitamin D deficiency; Prediabetes; Hypothyroidism, adult ; Heart murmur; Nonrheumatic aortic valve insufficiency 01/12/2025 Clinisync Result Encounter [facility] External Department Unsolicited Fay Pascal NP 12/08/2024 Refill [facility] [address] [place] [phone] Fay Pascal NP Hypothyroidism, adult from Last 3 Months Immunizations Immunization Administration Dates Next Due Pneumococcal Conjugate PCV 13 07/15/2014 Pneumococcal Conjugate PCV 20 02/27/2022 Pneumococcal Polysaccharide PPSV23 08/18/2009 Family History Medical History Relation Name Comments Colon cancer Brother Liver cancer Brother Cancer Father Lung cancer Father Hyperlipidemia Mother Relation Name Status Comments Brother Father Mother Alive Social History Tobacco Use Types Packs/Day [...] than three times a week 06/26/2023 Attends Bahai Services Not on file 06/26 Do you belong to any clubs o r organizations such as judaism groups, unions, fraternal or athletic groups, or [...] Recorded Patient Health Questionnaire-2 Score 0 01/12/2025 [facility] - Occupational Stress Questionnaire Answer Date Recorded [...] place to sleep or slept in a mcfp (including now)? No 06/26/2023 Comments Unknown Sex [...] (137 lb) 01/12/2025 10:06 AM EDT Height 167.6 cm (5' 6 ) 09/29/2024 9:14 AM EDT Body Mass Index 22.11 09/29/2024 9:14 AM EDT Plan of Treatment Health Maintenance Due Date Last Done Comments CT Colonography 1955 FIT-DNA 1955 FIT 1955 FOBT 1955 Sigmoidoscopy 1955 Mammogram 05/11/2025 05/11/2024, 04/20, 05/10/2023, Additional history exists Medicare Annual Wellness (AWV) 01/12/2026 0 01/12/2025, 01/07/2024, 01/07/2024, Additional history exists Colonoscopy 07/30/2033 07/31/2023, 03/20, 04/03/2021 Colorectal Cancer Screening 07/30/2033 Pneumococcal Vaccine: 65+ Years Completed 02/27/2022, 07/15/2014, 08/18/2009 Influenza Vaccine Discontinued Procedures Procedure Name Priority Date/Time Associated Diagnosis Comments ALL THYROXINE (T4) FREE Routine 01/12/2025 12:03 PM EDT TBH VITAMIN D 25 [place] Routine 01/12/2025 1 2:03 PM EDT ALL THYROID STIM HORMONE Routine 01/12/2025 12:03 PM EDT ALL T3 FREE Routine 01/12/2025 12:03 PM EDT ALL LIPID PROFILE (FASTING) Routine 01/12/2025 12:03 PM EDT [facility] CMP (CMP) (FOR REMOTE [facility] USE) Routine 01/12/2025 12:03 PM EDT MLR HEMOGLOBIN A1C Routine 01/12/2025 12 :03 PM EDT ALL CBC WITH AUTO DIFF Routine 12:03 PM EDT MM TOMOSYNTHESIS SCREENING BI 05/11/2024 2:21 PM EST from Last 3 Months or Most Recently Relevant to Health Maintenance Results * TBH VITAMIN D 25 [place] (01/12/2025 12:03 PM EDT) VITAMIN D 25.8 ng/mL TB Comment: <20 ng/mL Vit D deficient 20-<30 ng/mL Vit D insufficient 30-100 ng/mL Vit D sufficient >100 ng/mL Potential Toxicity 01/12/2025 12:0 3 PM EDT 01/12/2025 12:05 PM EDT Narrative CLINISYNC - 01/12/2025 2:35 PM EDT us Fay Pascal NP CLINISYNC Final Result [facility] * MLR HEMOGLOBIN A1C (01/12/2025 12:03 PM EDT) GLYCOHEMOGLOBIN A1C 5.1 4.5 - 6.2 % TB Comment: ADA RECOMMENDED LIMIT 4.0 - 6.0 ADA THERAPEUTIC TARGET < 7.0 ACTION SUGGESTED > 7.0 ESTIMATED AVERAGE GLUCOSE 100 mg/dL TB 01/12/2025 12:0 3 PM EDT 01/12/2025 12:05 PM EDT Narrative CLINISYNC - 01/12/2025 12:32 PM EDT us Fay Pascal NP CLINISYNC Final Result CLINISYNC TB * [facility] CMP (CMP) (FOR REMOTE [facility] USE) (01/12/2025 12:03 PM EDT) SODIUM 142 136 - 145 mmol/L TBH POTASSIUM 3.8 3.5 - 5.1 mmol/L TBH CHLORIDE 105 98 - 107 mmol/L TBH CARBON DIOXIDE 30.5 21.0 - 32.0 mmol/L TBH ANION GAP 10.3 TBH GLUCOSE 89 74 - 106 mg/dL TBH BLOOD UREA NITROGEN 12.0 7.0 - 18.0 mg/dL TBH CREATININE 0.59 0.55 - 1.02 mg/dL TBH TBH EGFR-AF [place]IAN >60 >=60 mL/min/1. 73m 2 TBH TBH EGFR-NON AF [place]IAN >60 >=60 mL/min/1. 73m 2 TBH BUN CREATININE RATIO 20.3 TBH CALCIUM 8.9 8.5 - 10.1 mg/dL TBH BILIRUBIN TOTAL 0.6 0.2 - 1.0 mg/dL TBH ASPARTATE AMINO TRANSFERASE 21 15 - 37 U/L TBH ALANINE AMINOTRANSFERASE 22 14 - 59 U/L TBH ALKALINE PHOSPHATASE 78 46 - 116 U/L TBH TOTAL PROTEIN 7.3 6.4 - 8.2 g/dL TBH ALBUMIN LEVEL 3.6 3.4 - 5.0 g/dL TBH GLOBULIN 3.7 g/dL TBH ALBUMIN GLOBULIN RATIO 1.0 TBH 01/12/2025 12:0 3 PM EDT 01/12/2025 12:05 PM EDT Narrative CLINISYNC - 01/12/2025 1:37 PM EDT Fay Pascal NP CLINISYNC Final Result CLINISYNC TB * ALL THYROXINE (T4) FREE (01/12/2025 12:03 PM EDT) FREE T4 1.06 0.76 - 1.46 ng/dL TBH 01/12/2025 12:0 3 PM EDT 01/12/2025 12:05 PM EDT Narrative CLINISYNC - 01/12/2025 2:35 PM EDT Fay Sosadexter STORAGE SPECIALIST CLINISYNC Final Result Performing Organization Address City/[facility]/ZIP Co de Phone Number CLINISYNC TB * ALL THYROID STIM HORMONE (01/12/2025 12:03 PM EDT) THYROID STIMULATING HORMONE 3.608 0.358 - 3.740 uIU/mL TBH 01/12/2025 12:0 3 PM EDT 01/12/2025 12:05 PM EDT Narrative CLINISYNC - 01/12/2025 1:37 PM EDT Fay Naida BROCK CLINISYNC Final Result Performing Organization Address [facility]/ZIP Co de Phone Number CLINISYNC TB * ALL T3 FREE (01/12/2025 12:03 PM EDT) FREE T3 2.31 2.18 - 3.98 pg/mL TBH 01/12/2025 12:0 3 PM EDT 01/12/2025 12:05 PM EDT Narrative CLINISYNC - 01/12/2025 1:37 PM EDT Fay Sosadexter BROCK CLINISYNC Final Result Performing Organization Address [facility] Co de Phone Number CLINISYNC TB * (ABNORMAL) ALL LIPID PROFILE (FASTING) (01/12/2025 12:03 PM EDT) TRIGLYCERIDES 22 <=150 mg/dL TBH CHOLESTEROL 223(H) <=200 mg/dL TBH HDL CHOLESTEROL 85(H) 40 - 60 mg/dL TBH Comment: > or =60 mg/dl - LOW CARDIOVASCULAR RISK <40 mg/dl - HIGH CARDIOVASCULAR RISK LDL CHOLESTEROL CALCULATED 134.0 mg/dL TB Comment: <100 mg/dl OPTIMAL 100-129 mg/dl NEAR OR ABOVE OPTIMAL 130-159 mg/dl BORDERLINE HIGH 160-189 mg/dl HIGH >190 mg/dl VERY HIGH VLDL CHOLESTEROL 4.4 mg/dL TB CHOL HDL RATIO 2.6 TB Comment: 3.3 - 4.4 LOW RISK 4.4 - 7.1 AVERAGE RISK 7.1 - 11.0 MODERATE RISK >11.0 HIGH RISK 01/12/2025 12:0 3 PM EDT 01/12/2025 12:05 PM EDT Narrative CLINISYNC - 01/12/2025 1:37 PM EDT us Fay Pascal NP [facility] Result [facility] * (ABNORMAL) ALL CBC WITH AUTO DIFF (01/12/2025 12:03 PM EDT) TB WBC 5.1 4.0 - 11.0 10 3/uL TBH TB RBC 3.99(L) 4.20 - 5.40 10 6/uL TBH TB HGB 12.0 12.0 - 16.0 g/dL TB TB HCT 35.9(L) 36.0 - 48.0 % TB TB MCV 90.0 81.0 - 99.0 fL TB TB MCH 30.1 26.7 - 34.0 pg TBH TB MCHC 33.4 29.9 - 35.2 g/dL TB TB RDW 13.0 11.0 - 15.0 % TBH TBH PLT 174 150 - 450 10 3/uL TBH TBH MPV 10.2 9.5 - 13.5 fL TBH NEUTROPHILS PERCENT AUTO 74.6 43.0 - 75.0 % TBH LYMPHOCYTES PERCENT AUTO 14.6(L) 20.5 - 60.0 % TBH MONOCYTES PERCENT AUTO 8.6 1.7 - 12.0 % TBH TBH EO % 1.2 0.9 - 7.0 % TBH BASOPHILS PERCENT AUTO 0.6 0.2 - 2.0 % TBH IMMATURE GRANULOCYTES PCT AUTO 0.4 0.0 - 0.5 % TBH NEUTROPHILS ABSOLUTE AUTO 3.8 1.4 - 6.5 10 3/uL TBH LYMPHOCYTES ABSOLUTE AUTO 0.8(L) 1.2 - 3.8 10 3/uL TBH MONOCYTES ABSOLUTE AUTO 0.4 0.3 - 0.8 10 3/uL TBH TBH EO # 0.1 0.0 - 0.7 10 3/uL TBH BASOPHILS ABSOLUTE AUTO 0.0 0.0 - 0.1 10 3/uL TBH IMMATURE GRANULOCYTES ABS AUTO 0.02 0.00 - 0.03 10 3/uL TBH 01/12/2025 12:0 3 PM EDT 01/12/2025 12:05 PM EDT Narrative CLINISYNC - 01/12/2025 12:31 PM EDT Fay Pascal NP CLINISYNC Final Result Performing Organization Address City/State/[facility] Co de Phone Number [facility] TB * MM TOMOSYNTHESIS SCREENING BI (05/11/2024 2:21 PM EST) Anatomical Region Laterality Modality Other 05/11/2024 2:21 PM EST Narrative 05/11/2024 2:22 [place] [address] Mammography Report Signed Patient: ALESHA BONILLA MR#: [id number] : 1955 Acct:[id number] Age/Sex: 68 / F ADM Date: 05/11/24 Loc: MAMMO Attending Dr: Fay Pascal NP Ordering Physician: Fay Pascal NP Results: Date of Service: 05/11/24 Follow Up: Procedure(s): MM tomosynthesis screening BI Accession Number(s): [id number] cc: Fay Pascal NP Patient Name: ALESHA BONILLA MR#: [id number] : 1955 Exam Date: 05/11/2024 Ordering Doctor: YAJAIRA Pascal CRYSTALLOGRAPHER RADIOLOGY REPORT PROCEDURE: MM TOMOSYNTHESIS SCREENING BI COMPARISON: MM TOMOSYNTHESIS SCREENING BI, 05/10/2023. MG MAMM SCREEN 3D NEETA CAD, 05/09/2022. INDICATIONS: Screening Calculator Name NCI Breast Cancer Risk Assessment Tool 5 Year Breast Cancer Risk 1.10% Lifetime Breast Cancer Risk 3.70% Personal Breast Cancer No Personal Ovarian Cancer No Treatments None Family Cancers Father with lung cancer at age 43; Brother with liver cancer at age 65; Brother with colon/lung cancer at age 46; Brother with lung cancer at age 74. LOCATION: The [facility] BREAST COMPOSITION: There are scattered areas of fibroglandular density. FINDINGS: DIAGNOSTIC CATEGORY 1--NEGATIVE. NO CHANGE FROM COMPARISON ASSESSMENT. RIGHT BREAST: No significant suspicious finding. LEFT BREAST: No significant suspicious finding. RECOMMENDATIONS: ROUTINE MAMMOGRAM AND CLINICAL EVALUATION IN 12 MONTHS. PLEASE NOTE: A NORMAL MAMMOGRAM DOES NOT EXCLUDE THE POSSIBILITY OF BREAST CANCER. A CLINICALLY SUSPICIOUS PALPABLE LUMP SHOULD BE BIOPSIED. Dictated by: Panda Lange MD on 05/11/2024 at 14:20 Approved by: Panda Lange MD on 05/11/2024 at 14:20 Dictated By: Panda Lange M.D. Signed By: 05/11/24 142 DD/ 20 TD/TT: Ferry Hand: Procedure Note Radiology, Radiologist, - 05/11/2024 [place] [address] Mammography Report Signed Patient: ALESHA BONILLA AMR#: [id number] : 1955cct:[id number] Age/Sex: 68 / FADM Date: 05/11/24 Loc: MAMMO Attending Dr: Fay Pascal NP Ordering Physician: Fay Pascal NPResults: Date of Service: 05/11/24Follow Up: Procedure(s): MM tomosynthesis screening BI Accession Number(s): [id number] cc: Fay Pascal NP Patient Name: ALESHA BONILLA MR#: [id number] : 1955 Exam Date: 05/11/2024 Ordering Doctor: YAJAIRA Pascal CNP RADIOLOGY REPORT PROCEDURE: MM TOMOSYNTHESIS SCREENING BI COMPARISON: MM TOMOSYNTHESIS SCREENING BI, 05/10/2023. MG MAMM [id number] NEETA CAD, 05/09/2022. INDICATIONS: Screening Calculator Name NCI Breast Cancer Risk Assessment Tool 5 Year Breast Cancer Risk 1.10% Lifetime Breast Cancer Risk 3.70% Personal Breast Cancer No Personal Ovarian Cancer No Treatments None Family Cancers Father with lung cancer at age 43; Brother with liver cancer at age 65; Brother with colon/lung cancer at age 46; Brother withlung cancer at age 74. LOCATION: The [facility] BREAST COMPOSITION: There are scattered areas of fibroglandulardensity. FINDINGS: DIAGNOSTIC CATEGORY 1--NEGATIVE. NO CHANGE FROM COMPARISON ASSESSMENT. RIGHT BREAST: No significant suspicious finding. LEFT BREAST: No significant suspicious finding. RECOMMENDATIONS: ROUTINE MAMMOGRAM AND CLINICAL EVALUATION IN 12 MONTHS. PLEASE NOTE: A NORMAL MAMMOGRAM DOES NOT EXCLUDE THE POSSIBILITY OFBREAST CANCER. A CLINICALLY SUSPICIOUS PALPABLE LUMP SHOULD BE BIOPSIED. Dictated by: Panda Lange MD on 05/11/2024 at 14:20 Approved by: Panda Lange MD on 05/11/2024 at 14:20 Dictated By: Panda Lange M.D. Signed By:05/11/24 1422 DD/ 142 TD/TT: Ferry Hand: Fay Pascal NP [facility] IMAGING Final Result from Last 3 Months or Most Recently Relevant to Health Maintenance Insurance MEDICARE [employer]ET[employer] Care Teams Charging Machine Operator Relationship Specialty Start Date End Date Phoenix Gannon MD PCP - General Family Medicine 06/18/23 Phoenix Gannon MD [address] [place] [phone] PCP - ACO Reach 06/26/24 Fay Pascal NP [address] [place] [phone] Nurse Practitioner Family Medicine 09/29/24
--- OUTSIDE RECORDS SUMMARY | 2025-01-26 08:53 | XMS_ITS | Encounter Summary ---
Author Organization [facility] Address [address] [place] [address] Care Team Providers Care Commercial Drone Software Developer Name Role Phone Phoenix Gannon MD Primary Care Provider [phone] Phoenix Gannon MD Unavailable Fay Pascal POLICE JUSTICE Unavailable [phone] Encounter Details Date Type Department Care Team (Late st Contact Info) Description 05/11/2024 Clinisync Result Encounter [facility] External Department Unsolicited Fay Pascal, POLICE JUSTICE [address] [place] [phone] Social History Tobacco Use Types Packs/Day Years [...] than three times a week 06/26/2023 Attends Gnosticism Services Not on file 06/26 Do you belong to any clubs o r organizations such as druze groups, unions, fraternal or athletic groups, or [...] Date Recorded Patient Health Questionnaire-2 Score 0 01/07/2024 [facility] Answer Date [...] place to sleep or slept in a penitentiary (including now)? No 06/26/2023 Comments Unknown Sex and Gender Information Value Date Recorded Sex Assigned at Not on file Legal Sex Female 8:21 PM EDT Gender Identity Not on file Sexual Orientation Not on file documented as of this encounter Plan of Treatment Not on file documented as of this encounter Procedures Procedure Name Priority Date/Time Associated Diagnosis Comments MM TOMOSYNTHESIS SCREENING BI 05/11/2024 2:21 PM EST documented in this encounter Results * MM TOMOSYNTHESIS SCREENING BI (05/11/2024 2:21 PM EST) Anatomical Region Laterality Modality Other 05/11/2024 2:21 PM EST Narrative 05/11/2024 2:22 PM EST The [address] [address] Mammography Report Signed Patient: ALESHA BONILLA MR#: [id number] : 1955 Acct:[id number] Age/Sex: 68 / F ADM Date: 05/11/24 Loc: MAMMO Attending Dr: Fay Pascal NP Ordering Physician: Fay Pascal NP Results: Date of Service: 05/11/24 Follow Up: Procedure(s): MM tomosynthesis screening BI Accession Number(s): [id number] cc: Fay Pascal NP Patient Name: ALESHA BONILLA MR#: [id number] : 1955 Exam Date: 05/11/2024 Ordering Doctor: [...] lung cancer at age 74. LOCATION: The [facility] BREAST COMPOSITION: There are scattered areas of [...] Dictated By: Panda Lange M.D. Signed By: 05/11/241421 DD/ 142 TD/TT: Chief Counsel: Procedure Note Radiology, Radiologist, MD - 05/11/2024 [place] [address] Mammography Report Signed Patient: ALESHA BONILLA AMR#: [id number] : 1955cct:[id number] Age/Sex: 68 / FADM Date: 05/11/24 Loc: MAMMO Attending Dr: Fay Pascal NP Ordering Physician: Fay Pascal NPResults: Date of Service: 05/11/24Follow Up: Procedure(s): MM tomosynthesis screening BI Accession Number(s): [id number] cc: Fay Pascal NP Patient Name: ALESHA BONILLA MR#: [id number] : 1955 Exam Date: 05/11/2024 Ordering Doctor: YAJAIRA Pascal CNP RADIOLOGY REPORT PROCEDURE: MM TOMOSYNTHESIS SCREENING BI COMPARISON: MM TOMOSYNTHESIS SCREENING BI, 05/10/2023. MG MAMM [id number] NEETA CAD, 05/09/2022. INDICATIONS: Screening Calculator Name [...] withlung cancer at age 74. LOCATION: The [facility] BREAST COMPOSITION: There are scattered areas of [...] Panda Lange M.D. Signed By:05/11/24 1422 DD/ 1421 TD/TT: Chief Counsel: us Fay Pascal NP [facility] IMAG[facility] Final Result documented in this encounter Visit Diagnoses Not on filedocumented in this encounter Additional Health Concerns Assessment Noted Time PHQ-9 Depression Total Score: 2 01/07/20 24 10:38 AM EDT documented as of this encounter Care Teams Commercial Drone Software Developer Relationship Specialty Start Date End Date Phoenix Gannon MD PCP - General Family Medicine 06/18/23 Phoenix Gannon MD [facility] [place] [address] PCP - ACO Reach 06/26/24 Fay Pascal NP [address] [place] [address] Nurse Practitioner Family Medicine 09/29/24 documented as of this encounter
--- OUTSIDE RECORDS SUMMARY | 2025-01-26 08:53 | XMS_ITS | Encounter Summary ---
Author Organization [facility] Address [address] [place] [address] Care Team Providers Care Glass Blower Helper Name Role Phone Phoenix Gannon MD Primary Care Provider [phone] Phoenix Gannon MD Unavailable Fay Pascal MANDARIN TEACHER Unavailable [phone] Encounter Details Date Type Department Care Team (Late st Contact Info) Description 06/25/2023 Abstract [facility] [address] [facility] [place] [address] Fay Pascal NP [address] [place] [phone] Social History Tobacco Use Types Packs/Day Years Used Date Smoking Tobacco: Never Smokeless Tobacco: Never Tobacco Cessation:Counseling Given: Not Answered Alcohol Use Standard Drinks/Week Comments Not Currently [...] than three times a week 06/26/2023 Attends Worship Services Not on file 06/26 Do you belong to any clubs o r organizations such as nondenominational groups, unions, fraternal or athletic groups, or [...] Recorded Patient Health Questionnaire-2 Score 0 06/27/2023 [facility] - Occupational Stress [...] place to sleep or slept in a fpc (including now)? No 06/26/2023 Comments Unknown Sex and Gender Information Value Date Recorded Sex Assigned at Not on file Legal Sex Female 8:21 PM EDT Gender Identity Not on file Sexual Orientation Not on file documented as of this encounter Functional Status * Audit-C Score Answer Date of Assessment Author 0 06/26/2023 5:35 PM EST Jaclynt, Generic * Q1: How often do you have a drink containing alcohol? Answer Date of Assessment Author Never 06/26/2023 5:35 PM EST Jaclynt, Generic * Q2: How many drinks containing alcohol do you have on a typical day when you are drinking? Answer Date of Assessment Author Patient does not drink 06/26/2023 5:35 PM EST My chart, Generic * Q3: How often do you have six or more drinks on one occasion? Answer Date of Assessment Author Never 06/26/2023 5:35 PM EST Jaclynt, Generic * Over the past 2 weeks, how often have you been bothered by any of the following problems? Question Answer Date of Assessment Author Little interest or pleasure in doing things Not at all 06/27/2023 9:53 AM Amilcar Kemp MA Feeling down, depressed, or hopeless Not at all 06/27/2023 9:53 AM Amilcar Kemp MA Patient Health Questionnaire-2 Score 0 06/27/2023 9:53 AM Gabriella Kemp MA documented as of this encounter Plan of Treatment Not on file documented as of this encounter Visit Diagnoses Not on filedocumented in this encounter Care Teams Glass Blower Helper Relationship Specialty Start Date End Date Phoenix Gannon MD PCP - General Family Medicine 06/18/23 Phoenix Gannon MD [address] [place] [phone] PCP - ACO Reach 06/26/24 Fay Pascal NP [address] [place] [phone] Nurse Practitioner Family Medicine 09/29/24 documented as of this encounter
--- OUTSIDE RECORDS SUMMARY | 2025-01-26 08:53 | XMS_ITS | Encounter Summary ---
Author Organization [facility] Address [address] [place] [address] Care Team Providers Care Marble Coper Name Role Phone Phoenix Gannon MD Primary Care Provider Phoenix Gannon MD Unavailable Fay Pascal QUALITY IMPROVEMENT COORDINATOR (RN) Unavailable [phone] Encounter Details Date Type Department Care Team (Late st Contact Info) Description 01/12/2025 Clinisync Result Encounter [facility] External Department Unsolicited Fay Pascal, QUALITY IMPROVEMENT COORDINATOR (RN) [address] [place] [id number] Social History Tobacco Use Types Packs/Day Years [...] than three times a week 06/26/2023 Attends Oriental [employer] Services Not on file 06/26 Do you belong to any clubs o r organizations such as congregational groups, unions, fraternal or athletic groups, or [...] Recorded Patient Health Questionnaire-2 Score 0 01/12/20[facility] Questionnaire Answer Date [...] place to sleep or slept in a snf (including now)? No 06/26/2023 Comments Unknown Sex and Gender Information Value Date Recorded Sex Assigned at Not on file Legal Sex Female 8:21 PM EDT Gender Identity Not on file Sexual Orientation Not on file documented as of this encounter Functional Status * Over the past 2 weeks, how often have you been bothered by any of the following problems? Question Answer Date of Assessment Author Little interest or pleasure in doing things Not at all 01/12/2025 10:13 AM AYET Erica Groves MA Feeling down, depressed, or hopeless Not at all 01/12/2025 10:13 AM EDT Erica Groves MA Patient Health Questionnaire-2 Score 0 01/12/2025 10:13 AM AYET Elizabeth Groves MA * Question Answer Date of Assessment Author Trouble falling or staying asleep, or sleeping too much Not at all 01/12/2025 10:13 AM AYET Taniya Chapman MA Feeling tired or having little energy Not at all 01/12/2025 10:13 AM AYET Erica Groves MA Poor appetite or overeating Not at all 01/12/2025 10 :13 AM AYET Taniya Groves MA Feeling bad about yourself - or that you are a failure or have let yourself or your family down Not at all 01/12/2025 10:13 AM EDT Erica Groves MA Trouble concentrating on things, such as reading the newspaper or watching television Not at all 01/12/2025 10:13 AM EDT Erica Groves MA Moving or speaking so [...] Groves MA documented as of this encounter Plan of Treatment Not on file documented as of this encounter Procedures Procedure Name Priority Date/Time Associated Diagnosis Comments TBH VITAMIN D 25 [place] Routine 01/12/2025 1 2:03 PM EDT MLR HEMOGLOBIN A1C Routine 01/12/2025 12 :03 PM EDT [facility] CMP (CMP) (FOR REMOTE [facility] USE) Routine 01/12/2025 12:03 PM EDT ALL THYROXINE (T4) FREE Routine 01/12/2025 12:03 PM EDT ALL THYROID STIM HORMONE Routine 01/12/2025 12:03 PM EDT ALL T3 FREE Routine 01/12/2025 12:03 PM EDT ALL LIPID PROFILE (FASTING) Routine 01/12/2025 12:03 PM EDT ALL CBC WITH AUTO DIFF Routine 01/12/2025 12:03 PM EDT documented in this encounter Results * ALL THYROXINE (T4) FREE (01/12/2025 12:03 PM EDT) [facility] FREE T4 1.06 0.76 - 1.46 ng/dL TB 01/12/2025 12:0 3 PM EDT 01/12/2025 12:05 PM EDT Narrative CLINISYNC - 01/12/2025 2:35 PM EDT us Fay Naida BROCK CLINISYNC Final Result CLINISYNC TB * TBH VITAMIN D 25 [place] (01/12/2025 12:03 PM EDT) VITAMIN D 25.8 ng/mL TBH Comment: <20 ng/mL Vit D deficient 20-<30 ng/mL Vit D insufficient 30-100 ng/mL Vit D sufficient >100 ng/mL Potential Toxicity 01/12/2025 12:0 3 PM EDT 01/12/2025 12:05 PM EDT Narrative CLINISYNC - 01/12/2025 2:35 PM EDT us Fay Naida BROCK CLINISYNC Final Result Performing Organization Address [facility]/ZIP Co de Phone Number CLINISYNC TB * ALL THYROID STIM HORMONE (01/12/2025 12:03 PM EDT) THYROID STIMULATING HORMONE 3.608 0.358 - 3.740 uIU/mL TBH 01/12/2025 12:0 3 PM EDT 01/12/2025 12:05 PM EDT Narrative CLINISYNC - 01/12/2025 1:37 PM EDT us Fay Chadmariferdexter BROCK CLINISYNC Final Result Performing Organization Address [facility] Co de Phone Number CLINISYNC TB * ALL T3 FREE (01/12/2025 12:03 PM EDT) FREE T3 2.31 2.18 - 3.98 pg/mL TB 01/12/2025 12:0 3 PM EDT 01/12/2025 12:05 PM EDT Narrative CLINISYNC - 01/12/2025 1:37 PM EDT Fay Pascal NP CLINISYNC Final Result Performing Organization Address [facility] Co de Phone Number CLINWINDY TBH * (ABNORMAL) ALL LIPID PROFILE (FASTING) (01/12/2025 12:03 PM EDT) TRIGLYCERIDES 22 <=150 mg/dL TBH CHOLESTEROL 223(H) <=200 mg/dL TBH HDL CHOLESTEROL 85(H) 40 - 60 mg/dL TB Comment: > or =60 mg/dl - LOW [...] NP CLINISYNC Final Result Performing Organization Address [facility] Co de Phone Number CLINWINDY TB * [facility] CMP (CMP) (FOR REMOTE [facility] USE) (01/12/2025 12:03 PM EDT) SODIUM 142 136 - 145 mmol/L TBH POTASSIUM 3.8 3.5 - 5.1 mmol/L TBH CHLORIDE 105 98 - 107 mmol/L TBH CARBON DIOXIDE 30.5 21.0 - 32.0 mmol/L TBH ANION GAP 10.3 TBH GLUCOSE 89 74 - 106 mg/dL TBH BLOOD UREA NITROGEN 12.0 7.0 - 18.0 mg/dL TBH CREATININE 0.59 0.55 - 1.02 mg/dL TBH TBH EGFR-AF [place] >60 >=60 mL/min/1. 73m 2 TBH TBH EGFR-NON AF [place] >60 >=60 mL/min/1. 73m 2 TBH BUN [...] 3.7 g/dL TBH ALBUMIN GLOBULIN RATIO 1.0 TB 01/12/2025 12:0 3 PM EDT 01/12/2025 12:05 PM EDT Narrative CLINISYNC - 01/12/2025 1:37 PM EDT Fay Pascal NP CLINISYNC Final Result [facility] * MLR HEMOGLOBIN A1C (01/12/2025 12:03 PM EDT) Pathologist [facility] GLYCOHEMOGLOBIN A1C 5.1 4.5 - 6.2 % [facility] Comment: ADA RECOMMENDED LIMIT 4.0 - 6.0 ADA THERAPEUTIC TARGET < 7.0 ACTION SUGGESTED > 7.0 ESTIMATED AVERAGE GLUCOSE 100 mg/dL [facility] 01/12/2025 12:0 3 PM EDT 01/12/2025 12:05 PM EDT Narrative CLINISYNC - 01/12/2025 12:32 PM EDT Fay Pascal NP CLINISYNC Final Result [facility] * (ABNORMAL) ALL CBC WITH AUTO DIFF (01/12/2025 12:03 PM EDT) Pathologist [facility] WBC 5.1 4.0 - 11.0 10 3/uL TBH TBH RBC 3.99(L) 4.20 - 5.40 10 6/uL TBH TBH HGB 12.0 12.0 - 16.0 g/dL TBH TBH HCT 35.9(L) 36.0 - 48.0 % TBH TBH MCV 90.0 81.0 - 99.0 fL TBH TBH MCH 30.1 26.7 - 34.0 pg TBH TBH MCHC 33.4 29.9 - 35.2 g/dL TBH TBH RDW 13.0 11.0 - 15.0 % TBH [...] Narrative CLINISYNC - 01/12/2025 12:31 PM EDT us Fay Pascal NP CLINISYNC Final Result CLINISYNC TB documented in this encounter Visit Diagnoses Not on filedocumented in this encounter Additional Health Concerns Assessment Noted Time PHQ-9 Depression Total Score: 0 01/13/20 10:13 AM EDT documented as of this encounter Care Teams Marble Coper Relationship Specialty Start Date End Date Phoenix Gannon MD PCP - General Family Medicine 06/18/23 Phoenix Gannon MD [address] [place] [phone] PCP - ACO Reach 06/26/24 Fay Pascal NP [address] [place] [phone] Nurse Practitioner Family Medicine 09/29/24 documented as of this encounter
--- OUTSIDE RECORDS SUMMARY | 2025-01-26 08:53 | XMS_ITS | Clinical Summary ---
Author Organization [facility] Address [address] [address] Care Team Providers Care Electric Motor And Generator Assembler Name Role Phone None, Provided MD Primary Care Provider Unavaila ble Allergies No known active allergies Medications levothyroxine (Synthroid, Levoxyl) 75 mcg tablet Take 75 mcg by mouth before breakfast. 02/11/2017 Active calcium citrate-vitamin D2 250 mg-2.5 mcg (100 unit) tablet Take 1 tablet by mouth two times daily. Active Social History Tobacco Use Types Packs/Day Years Used Date Smoking Tobacco: Never Smokeless Tobacco: Never Tobacco Cessation:Counseling Given: Not Answered Alcohol Use Standard Drinks/Week Comments Not Currently 0 (1 standard drink = 0.6 oz pur e alcohol) PHQ-2 Answer Date Recorded Patient Health Questionnaire-2 Score 0 09/23/2024 Comments Unknown Sex and Gender Information Value Date Recorded Sex Assigned at Not on file Legal Sex Female 2:50 PM EST Gender Identity Not on file Sexual Orientation Not on file Last Filed Vital Signs Vital Sign Reading Time Taken Comments Blood Pressure 97/66 09/23/2024 8:51 AM EDT Pulse 59 09/23/2024 8:51 AM EDT Temperature 36.6 C (97.9 F) 09/23/2024 8:51 AM EDT Respiratory Rate - - Oxygen Saturation - - Inhaled Oxygen Concentration - - Weight 63 kg (139 lb) 09/23/2024 8:51 AM EDT Height - - Body Mass Index - - Plan of Treatment Health Maintenance Due Date Last Done Comments CT Colonography 1955 FIT-DNA 1955 FIT 1955 FOBT 1955 Medicare Annual Wellness (AWV) 1955 Sigmoidoscopy 1955 Adult Tetanus 1977 Zoster Vaccines (1 of 2) 2005 Fall Risk Screening 2020 Mammogram 05/10/2024 05/10/2022 COVID-19 Vaccine (1 2023-2 5 season) 2025 Influenza Vaccine (#1) 2025 Depression Screening 09/23/2025 09/23/2024 Colonoscopy 04/03/2031 04/03/2021 Colorectal Cancer Screening 04/03/2031 Pneumococcal Vaccine: 50+ Years Completed 02/27/2022, 07/15/2014, 08/18/2009 HIB Vaccines Aged Out No longer eligi ble based on patient's age to complete this topic HPV Vaccines Aged Out No longer eligi ble based on patient's age to complete this topic IPV Vaccines Aged Out No longer eligi ble based on patient's age to complete this topic Meningococcal B Vaccine Aged Out No l onger eligible based on patient's age to complete this topic Meningococcal Vaccine Aged Out No zully nara eligible based on patient's age to complete this topic Rotavirus Vaccines Aged Out No longer eligible based on patient's age to complete this topic Insurance MEDICARE Member Subscriber Plan / Payer (Ef fective 2020-Present) Name:Alesha Barnes Member ID:[id number] Relation to Subscriber:Self Name:Alesha Barnes Subscriber ID:[id number] Payer ID:[id number] Group ID:Not on file Type:Medicare Address: [facility] [place] [id number] [employer] Care Teams Electric Motor And Generator Assembler Relationship Specialty Start Date End Date None, Provided, PCP - General 09/22/24
--- OUTSIDE RECORDS SUMMARY | 2025-01-26 08:53 | XMS_ITS | Encounter Summary ---
Author Organization [facility] Address [address] [place] [address] Care Team Providers Care Associate Professor Of Communication Name Role Phone Phoenix Gannon MD Primary Care Provider [phone] Phoenix Gannon MD Unavailable Fay Pascal ROOFER VINYL COATING Unavailable [phone] Encounter Details Date Type Department Care Team (Late st Contact Info) Description 01/15/2024 Clinisync Result Encounter [facility] External Department Unsolicited Fay Pascal, ROOFER VINYL COATING [address] [place] [phone] Social History Tobacco Use Types Packs/Day Years [...] than three times a week 06/26/2023 Attends Orthodox Services Not on file 06/26 Do you belong to any clubs o r organizations such as taoist groups, unions, fraternal or athletic groups, or [...] Recorded Patient Health Questionnaire-2 Score 0 [facility]/07/[facility] Answer Date Recorded [...] place to sleep or slept in a intermediate (including now)? No 06/26/2023 Comments Unknown Sex and Gender Information Value Date Recorded Sex Assigned at Not on file Legal Sex Female 8:21 PM EDT Gender Identity Not on file Sexual Orientation Not on file documented as of this encounter Plan of Treatment Not on file documented as of this encounter Procedures Procedure Name Priority Date/Time Associated Diagnosis Comments CA ECHO DOPPLER COMPLETE 01/15/2024 11:16 AM EDT documented in this encounter Results * CA ECHO DOPPLER COMPLETE (01/15/2024 11:16 AM EDT) Anatomical Region Laterality Modality Other 01/15/2024 11:1 6 AM EDT Narrative 01/15/2024 11:17 [place] [address] Cardiology Report Signed Patient: ALESHA BONILLA MR#: [id number] : 1955 Acct:[id number] Age/Sex: 68 / F ADM Date: 01/15/24 Loc: CARD Attending Dr: Fay Pascal NP Ordering Physician: Fay Pascal NP Date of Service: 01/15/24 Procedure(s): CA echo doppler complete Accession Number(s): [id number] cc: Fay Pascal NP Patient Name: ALESHA BONILLA MR#: [id number] : 1955 Exam Date: 01/15/2024 Ordering Doctor: YAJAIRA Pascal CNP ECHOCARDIOGRAM REPORT PROCEDURE: CA ECHO DOPPLER COMPLETE INDICATIONS: Heart murmur COMPARISON: None. DESCRIPTION: COMPLETE ECHOCARDIOGRAM Real-time transthoracic echocardiography with 2D, M-mode, spectral and color flow Doppler performed. QUALITY: Technical quality was good. LEFT VENTRICLE: Normal chamber size. Proximal septal hypertrophy (sigmoid septum). Normal systolic function. LV EF: Normal left ventricular ejection fraction, (55-60%). DIASTOLIC: Normal diastolic function. ATRIAL SEPTUM: Visually appears intact. LEFT ATRIUM: Mild dilatation. RIGHT ATRIUM: Normal chamber size. RIGHT VENTRICLE: Normal chamber size. Normal right ventricular systolic function. TRICUSPID VALVE: Normal mobility and thickness. No stenosis with mild regurgitation. Doppler studies reveal mildly (35-45) elevated right sided pressures. RVSP 39 mmHg MITRAL VALVE: Normal mobility and thickness. No evidence of mitral valve stenosis. There is no mitral annular calcification. Mild mitral regurgitation. AORTIC VALVE: Normal trileaflet appearance. No visible sclerosis. Normal leaflet mobility. No evidence of aortic valve stenosis. Mild to moderate aortic regurgitation. AORTIC ROOT: Normal diameter and appearance. Ascending aorta is normal in size. PULMONIC VALVE: Normal thickness and mobility. No stenosis. Trivial regurgitation. PERICARDIUM: No evidence of pericardial effusion. IVC: Collapses with inspirations. PLEURA: CONCLUSION: 1. Normal left ventricular size and systolic function. LVEF is estimated at 55 to 60%. 2. Normal right ventricular size and systolic function. 3. Mild left atrial dilatation. 4. Mild mitral and tricuspid regurgitation. 5. Mild to moderate aortic regurgitation. 6. Mildly elevated right-sided pressures. RVSP is 39 mmHg. Adult Echocardiography Procedure Report Left Ventricle LVEDD (3.7 - 5.6 cm): 4.45 cm LVESD (2.2 - 4.0 cm): 2.88 cm LVIVS thickness (0.6 - 1.2 cm): 1.13 cm LVPW thickness (0.5 - 1.0 cm): 0.86 cm e': 0.13 m/s E - e': 6.23 LVOT Max Gradient: 2.61 mm[Hg] LVOT Area (cm2): 0.81 m/s Peak Velocity (LVOT): 0.81 m/s Mean Velocity (LVOT): 0.60 m/s LVOT Diameter 2.24 cm Left Atrium LA Volume Index (2D A2C): 39.83 ml/m2 Left Atrium Systolic Dimension: 3.91 cm Mitral Valve MV E to A Ratio: 1.34 Mitral Valve A-Wave Peak Velocity: 0.60 m/s Mitral Valve E-Wave Peak Velocity: 0.80 m/s Right Ventricle Aorta AO Root Diam: 3.14 cm Ascending Ao Diam: 2.95 cm Aortic Valve AoV Area (Peak Ravi): 2.09 cm2, 2.09 cm2 AoV Area (VTI): 2.20 cm2, 2.20 cm2 Deceleration Clayton: 1.95 m/s2 Pressure Half-Time: 602.12 ms Peak Velocity(Antegrade Flow): 1.53 m/s Peak Gradient(Antegrade Flow): 9.37 mm[Hg] Mean Velocity(Antegrade Flow): 0.93 m/s Mean Gradient(Antegrade Flow): 4.10 mm[Hg] Velocity Time Integral: 32.35 cm Tricuspid Valve Peak Velocity (Regurgitant Flow): 2.98 m/s, 2.42 m/s Pulmonic Valve Mean Gradient: 2.05 mm[Hg] Mean Velocity: 0.65 m/s Peak Velocity: 1.17 m/s, 0.96 m/s Peak Gradient: 5.44 mm[Hg], 3.70 mm[Hg] Right Atrium Right Atrium Systolic Pressure: 40.78 ml, 40.78 ml Dictated by: Lambert Gaitan M.D. on 01/15/2024 at 11:13 Approved by: Lambert Gaitan M.D. on 01/15/2024 at 11:16 Dictated By: LAMBERT GAITAN Signed By: 01/15/24 1117 DD/ 1116 TD/TT: Steam Boiler Fireman: Procedure Note Radiology, Radiologist, - 01/15/[address] [address] Cardiology Report Signed Patient: ALESHA BONILLA [facility]#: [id number] : 1955cct:[id number] Age/Sex: 68 / FADM Date: 01/15/24 Loc: CARD Attending Dr: Fay Pascal NP Ordering Physician: aFy Pascal NP Date of Service: 01/15/24 Procedure(s): CA echo doppler complete Accession Number(s): [id number] cc: Fay Pascal NP Patient Name: ALESHA BONILLA MR#: [id number] : 1955 Exam Date: 01/15/2024 Ordering Doctor: YAJAIRA Pascal CNP ECHOCARDIOGRAM REPORT PROCEDURE: CA ECHO DOPPLER COMPLETE INDICATIONS: Heart murmur COMPARISON: None. DESCRIPTION: COMPLETE ECHOCARDIOGRAM Real-time transthoracic echocardiography with 2D, M-mode, spectral and color flow Dopplerperformed. QUALITY: Technical quality was good. LEFT VENTRICLE: Normal chamber size. Proximal septal hypertrophy(sigmoid septum). Normal systolic function. LV EF: Normal left ventricular ejection fraction, (55-60%). DIASTOLIC: Normal diastolic function. ATRIAL SEPTUM: Visually appears intact. LEFT ATRIUM: Mild dilatation. RIGHT ATRIUM: Normal chamber size. RIGHT VENTRICLE: Normal chamber size. Normal right ventricularsystolic function. TRICUSPID VALVE: Normal mobility and thickness. No stenosis with mild regurgitation. Doppler studies reveal mildly (35-45) elevated right sided pressures. RVSP 39 mmHg MITRAL VALVE: Normal mobility and thickness. No evidence of mitralvalve stenosis. There is no mitral annular calcification. Mild mitral regurgitation. AORTIC VALVE: Normal trileaflet appearance. No visible sclerosis.Normal leaflet mobility. No evidence of aortic valve stenosis. Mild to moderate aortic regurgitation. AORTIC ROOT: Normal diameter and appearance. Ascending aorta is normalin size. PULMONIC VALVE: Normal thickness and mobility. No stenosis. Trivial regurgitation. PERICARDIUM: No evidence of pericardial effusion. IVC: Collapses with inspirations. PLEURA: CONCLUSION: 1. Normal left ventricular size and systolic function. LVEF is estimatedat 55 to 60%. 2. Normal right ventricular size and systolic function. 3. Mild left atrial dilatation. 4. Mild mitral and tricuspid regurgitation. 5. Mild to moderate aortic regurgitation. 6. Mildly elevated right-sided pressures. RVSP is 39 mmHg. Adult Echocardiography Procedure Report Left Ventricle LVEDD (3.7 - 5.6 cm): 4.45 cm LVESD (2.2 - 4.0 cm): 2.88 cm LVIVS thickness (0.6 - 1.2 cm): 1.13 cm LVPW thickness (0.5 - 1.0 cm): 0.86 cm e': 0.13 m/s E - e': 6.23 LVOT Max Gradient: 2.61 mm[Hg] LVOT Area (cm2): 0.81 m/s Peak Velocity (LVOT): 0.81 m/s Mean Velocity (LVOT): 0.60 m/s LVOT Diameter 2.24 cm Left Atrium LA Volume Index (2D A2C): 39.83 ml/m2 Left Atrium Systolic Dimension: 3.91 cm Mitral Valve MV E to A Ratio: 1.34 Mitral Valve A-Wave Peak Velocity: 0.60 m/s Mitral Valve E-Wave Peak Velocity: 0.80 m/s Right Ventricle Aorta AO Root Diam: 3.14 cm Ascending Ao Diam: 2.95 cm Aortic Valve AoV Area (Peak Ravi): 2.09 cm2, 2.09 cm2 AoV Area (VTI): 2.20 cm2, 2.20 cm2 Deceleration Clayton: 1.95 m/s2 Pressure Half-Time: 602.12 ms Peak Velocity(Antegrade Flow): 1.53 m/s Peak Gradient(Antegrade Flow): 9.37 mm[Hg] Mean Velocity(Antegrade Flow): 0.93 m/s Mean Gradient(Antegrade Flow): 4.10 mm[Hg] Velocity Time Integral: 32.35 cm Tricuspid Valve Peak Velocity (Regurgitant Flow): 2.98 m/s, 2.42 m/s Pulmonic Valve Mean Gradient: 2.05 mm[Hg] Mean Velocity: 0.65 m/s Peak Velocity: 1.17 m/s, 0.96 m/s Peak Gradient: 5.44 mm[Hg], 3.70 mm[Hg] Right Atrium Right Atrium Systolic Pressure: 40.78 ml, 40.78 ml Dictated by: Lambert Gatian M.D. on 01/15/2024 at 11:13 Approved by: Lambert Gaitan M.D. on 01/15/2024 at 11:16 Dictated By: LMABERT GAITAN Signed By:01/15/24 1117 DD/ 1116 TD/TT: Steam Boiler Fireman: us Fay Psacal ROOFER VINYL COATING [facility]IN[facility] IMAGING Final Result documented in this encounter Visit Diagnoses Not on filedocumented in this encounter Additional Health Concerns Assessment Noted Time PHQ-9 Depression Total Score: 2 01/07/20 24 10:38 AM EDT documented as of this encounter Care Teams Associate Professor Of Communication Relationship Specialty Start Date End Date Phoenix Gannon MD PCP - General Family Medicine 06/18/23 Phoenix Gannon MD [address] [place] [address] PCP - ACO Reach 06/26/24 Fay Pascal NP [address] [place] [phone] Nurse Practitioner Family Medicine 09/29/24 documented as of this encounter
--- OUTSIDE RECORDS SUMMARY | 2025-01-26 08:53 | XMS_ITS | Encounter Summary ---
Author Organization [facility] Address [address] [place] [address] Care Team Providers Care Industrial Eng Name Role Phone Phoenix Gannon MD Primary Care Provider [phone] Phoenix Gannon MD Unavailable Fay Pascal PROJECT GEOLOGIST Unavailable [phone] Encounter Details Date Type Department Care Team (Late st Contact Info) Description 01/15/2024 [facility] [address] [place] [address] Fay Pascal, DELMY [address] [facility] [place] [address] Social History Tobacco Use Types Packs/Day Years [...] than three times a week 06/26/2023 Attends Anabaptist Services Not on file 06/26 Do you belong to any clubs o r organizations such as gnosticist groups, unions, fraternal or athletic groups, or [...] Recorded Patient Health Questionnaire-2 Score 0 [facility] Answer Date [...] place to sleep or slept in a custodial (including now)? No 06/26/2023 Comments Unknown Sex and Gender Information Value Date Recorded Sex Assigned at Not on file Legal Sex Female 8:21 PM EDT Gender Identity Not on file Sexual Orientation Not on file documented as of this encounter Plan of Treatment Not on file documented as of this encounter Procedures Procedure Name Priority Date/Time Associated Diagnosis Comments SCANNED LABS Routine 01/15/2024 11:29 AM EDT documented in this encounter Results * SCANNED LABS (01/15/2024 11:29 AM EDT) Fay Pascal PROJECT GEOLOGIST LAB CHG PERFORMABLES Final Resu lt documented in this encounter Visit Diagnoses Not on filedocumented in this encounter Additional Health Concerns Assessment Noted Time PHQ-9 Depression Total Score: 2 01/07/20 10:38 AM EDT documented as of this encounter Care Teams Industrial Eng Relationship Specialty Start Date End Date Phoenix Gannon MD PCP - General Family Medicine 06/18/23 Phoenix Gannon MD [address] [place] [address] PCP - ACO Reach 06/26/24 Fay Pascal NP [address] [place] [address] Nurse Practitioner Family Medicine 09/29/24 documented as of this encounter
--- OUTSIDE RECORDS SUMMARY | 2025-01-26 08:53 | XMS_ITS | Encounter Summary ---
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 Name Role Phone Phoenix Gannon MD Primary Care Provider [phone] Phoenix Gannon MD Unavailable Fay Pascal SPOOLING OPERATOR Unavailable [phone] Reason for Visit * Reason Comments Med Refill Encounter Details Date Type Department Care Team (Late Contact Info) Description 04/21/2024 Refill [facility] [address] [facility] [address] [place] [address] Fay Pascal, SPOOLING OPERATOR [address] [facility] [place] [address] Hypothyroidism, adult Social History Tobacco Use Types Packs/Day Years [...] than three times a week 06/26/2023 Attends [employer] Not on file 06/26 Do you [...] Recorded Patient Health Questionnaire-2 Score 0 01/07/2024 [employer] [facility] - Occupational Stress [...] place to sleep or slept in a fdc (including now)? No 06/26/2023 Comments Unknown Sex and Gender Information Value Date Recorded Sex Assigned at Not on file Legal Sex Female 8:21 PM EDT Gender Identity Not on file Sexual Orientation Not on file documented as of this encounter Plan of Treatment Not on file documented as of this encounter Visit Diagnoses Diagnosis Hypothyroidism, adult Other specified acquired hypothyroidism documented in this encounter Additional Health Concerns Assessment Noted Time PHQ-9 Depression Total Score: 2 01/07/20 24 10:38 AM EDT documented as of this encounter Care Teams Kindergarten Classroom Teacher Relationship Specialty Start Date End Date Phoenix Gannon MD PCP - General Family Medicine 06/18/23 Phoenix Gannon MD [address] [place] [address] PCP - ACO Reach 06/26/24 Fay Pascal NP [address] [place] [address] Nurse Practitioner Family Medicine 09/29/24 documented as of this encounter
--- NOTE | 2025-01-26 08:54 | CA_ITS ---
Patient Name: LITO BONILLA MR#: [id number] : 1955 Exam Date: 01/26/2025 Ordering Doctor: YAJAIRA BEARD CNP ECHOCARDIOGRAM REPORT PROCEDURE: CA ECHO DOPPLER COMPLETE INDICATIONS: Heart murmur, Aortic valve insufficiency COMPARISON: None. DESCRIPTION: COMPLETE ECHOCARDIOGRAM Real-time transthoracic echocardiography with 2D, M-mode, spectral and color flow Doppler performed. QUALITY: Technical quality was good. LEFT VENTRICLE: Normal chamber size. Proximal septal hypertrophy (sigmoid septum). LV EF: Global left ventricular systolic function is normal; visually estimated ejection fraction is 60 to 65%. No significant wall motion abnormalities. DIASTOLIC: Normal diastolic function. ATRIAL SEPTUM: Inadequately seen. LEFT ATRIUM: Normal chamber size. RIGHT ATRIUM: Mild dilatation. RIGHT VENTRICLE: Normal chamber size. Normal right ventricular systolic function. TRICUSPID VALVE: Normal mobility and thickness. Mild regurgitation. No evidence of pulmonary hypertension. RVSP 22mmHg. MITRAL VALVE: Normal mobility and thickness. No evidence of mitral valve stenosis. There is no mitral annular calcification. Mild to moderate mitral regurgitation. AORTIC VALVE: Normal trileaflet appearance. Thickened aortic valve. Normal leaflet mobility. No evidence of aortic valve stenosis. Moderate aortic regurgitation. AORTIC ROOT: Normal diameter and appearance. PULMONIC VALVE: Normal thickness and mobility. No stenosis. Mild regurgitation. PERICARDIUM: No evidence of pericardial effusion. IVC: Collapses with inspiration. Normal size. CONCLUSION: 1. Global left ventricular systolic function is normal; visually estimated ejection fraction is 60 to 65% 2. Normal right ventricular size and systolic function 3. Normal diastolic function 4. The right atrium is mildly dilated 5. Mild tricuspid regurgitation 6. Mild to moderate mitral regurgitation 7. Moderate aortic valve regurgitation 8. Mild pulmonic regurgitation Adult Echocardiography Procedure Report Left Ventricle LVEDD (3.7 - 5.6 cm): 4.84 cm LVESD (2.2 - 4.0 cm): 3.01 cm LVIVS thickness (0.6 - 1.2 cm): 1.16 cm LVPW thickness (0.5 - 1.0 cm): 0.89 cm e': 0.16 m/s E - e': 5.36 LVOT Max Gradient: 4.60 mm[Hg] LVOT Area (cm2): 1.07 m/s Peak Velocity (LVOT): 1.07 m/s Mean Velocity (LVOT): 0.67 m/s LVOT Diameter 2.05 cm Left Ventricular Ejection Fraction: 68.55 % Left Atrium LA Volume Index (2D A2C): 35.69 ml/m2 Left Atrium Systolic Dimension: 4.30 cm Mitral Valve MV E to A Ratio: 1.43 Mitral Valve A-Wave Peak Velocity: 0.60 m/s Mitral Valve E-Wave Peak Velocity: 0.85 m/s Right Ventricle RV Internal Diastolic Dimension: 3.44 cm Aorta AO Root Diam: 2.92 cm Ascending Ao Diam: 2.97 cm Aortic Valve AoV Area (Peak Ravi): 2.64 cm2, 2.64 cm2 AoV Area (VTI): 2.59 cm2, 2.59 cm2 Deceleration Callahan: 2.05 m/s2 Pressure Half-Time: 586.67 ms Peak Velocity(Antegrade Flow): 1.35 m/s Peak Gradient(Antegrade Flow): 7.25 mm[Hg] Mean Velocity(Antegrade Flow): 0.86 m/s Mean Gradient(Antegrade Flow): 3.43 mm[Hg] Velocity Time Integral: 26.82 cm Tricuspid Valve Peak Velocity (Regurgitant Flow): 1.87 m/s, 2.11 m/s, 2.19 m/s Pulmonic Valve Peak Velocity: 0.86 m/s Peak Gradient: 2.50 mm[Hg], 3.48 mm[Hg] Right Atrium Right Atrium Systolic Pressure: 44.18 ml, 44.18 ml Dictated by: Vivek Chávez M.D. on 01/26/2025 at 17:09 Approved by: Vivek Chávez M.D. on 01/26/2025 at 17:13
--- OUTSIDE RECORDS SUMMARY | 2025-01-26 08:59 | XMS_ITS | CCD ---
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 Role Phone Kelsey Pop Unavailable FabiolaPanda Unavailable Panda Santos Unavailable PASCUAL, DR PHOENIX [...] Care Provider FAY PASCAL Primary Care Physician [phone] Jose M SANTO Attending Unavailable AFY PASCAL Referring Unavailable Jose M SANTO Attending Unavailable FLORINA Wade Attending Provider MD Bright Mccall II Attending Provider Phoenix Garner Primary Care Unavailable Fay Pascal Admitting Unavailable Fay Pascal Attending Unavailable Christiane Wade Admitting UnavailChristiane Barth Attending Unavailjessy e NON STAFF Primary Care Unavailable Bright Mccall II Admitting Unavailjessy e Bright Mccall II Attending UnavailFay Queen APRN, NP Primary Care Provide r Phoenix Garner MD Unavailable FAY PASCAL Primary Care Unavailable KALIN HARRISON Referring Unavailable J CARLOS HARRISONFÉLIX Referring Unavailable FAY PASCAL Primary Care Unavailable CHAIM JEWELL Attending Unavailable Fay Pascal NP Unavailable MELYSSA DICKERSON Attending Unavailable FAY PASCAL Attending Unavailable FAY PASCAL Attending Unavailable Allergies Allergy Classification Reported Allergen(s) Allergy Type Date of Onset Reaction(s) Facility (1 source) No Known Medication Allergies; Translations: [No Known Medication Allergies] Propensity to adverse reactions (disorder) [facility] Repository Medications Current Medications Medication Drug Class(es) [...] mg / cholecalciferol 100 unt oral tablet (5 sources) Vitamin D take 1 tablet by [...] every week ergocalciferol (Vitamin D-2) 1.25 MG (89886 UT) capsule Take 1.25 mg by mouth [...] Classification Problem Date Documented Da te Episodic/Chronic Disorders of lipid metabolism (20 sources) Hyperlipidemia, unspecified; Translations: [Dyslipidemia] Onset: 10-25-2021 06-27-2023 Chronic Diverticulosis and diverticulitis (20 sources) Diverticular disease; Translations: [Diverticulosis of intestine, part unspecified, without perforation or abscess without bleeding] Onset: 01-07-2024 07-05-2023 Chronic Heart valve disorders (7 sources) Aortic incompetence, non-rheumatic ; Translations: [Nonrheumatic aortic (valve) insufficiency] Onset: 01-12-2025 01-12-2025 Chronic Mycoses (1 source) Onychomycosis due to dermatophyte [...] unspecified Onset: 10-10-2021 Resolved: 10-10-2021 Chronic Other skin disorders (1 source) Dystrophia unguium; [...] of malignant neoplasm of digestive organs; Translations: [[facility] NEOPLASM DIGESTIV ORGN] Onset: 05-17-2022 Episodic Residual codes; unclassified (1 source) Family history of malignant neoplasm of trachea, bronchus and lung; Translations: [[facility] NEOPLSM TRACH BRON LNG] Onset: 05-17-2022 Episodic Residual codes; unclassified (1 source) Family history of malignant neoplasm of other organs or systems; Translations: [[facility] NEOPLASM OTH ORGN/SYS] Onset: 05-17-2022 Episodic Thyroid [...] [Abdominal pain] Onset: 1 Resolved: 2 Episodic Diabetes mellitus without complication (20 sources) Prediabetes; Translations: [Prediabetes] Onset: 2 06-27-2023 Episodic Esophageal disorders (20 sources) Gastroesophageal reflux disease; Translations: [Gastro-esophageal reflux disease without esophagitis] Onset: 2 Resolved: 4 Chronic Gastrointestinal hemorrhage (20 sources) Rectal hemorrhage; Translations: [Hemorrhage of anus and rectum] Onset: 4 06-27-2023 Episodic Genitourinary symptoms and ill-defined conditions (3 sources) Dysuria; Translations: [Dysuria] Onset: 4 12-03-2023 Episodic Heart valve disorders (20 sources) Heart murmur; Translations: [Cardiac murmur, unspecified] Onset: 4 06-27-2023 Episodic Hemorrhoids (20 sources) Hemorrhoids; Translations: [Unspecified hemorrhoids] Onset: 4 07-05-2023 Episodic Miscellaneous mental health disorders (3 sources) Psychophysiologic insomnia; Translations: [Psychophysiologic insomnia] Onset: 2 Resolved: 4 Chronic Mood disorders (18 sources) Mood disorders Onset: 4 Resolved: 5 01-07-2024 Other aftercare (1 source) Other care home (current) drug therapy; Translations: [[employer]W ATTENDANT CURRENT DRUG THERAPY] Onset: 2 Episodic Other and unspecified benign neoplasm (1 source) Hemangioma of intra-abdominal structures Onset: 2 Resolved: 2 Episodic Other and unspecified benign neoplasm (20 sources) History of polyp of colon; Translations: [...] 4 06-27-2023 Episodic Other non-traumatic joint disorders (16 sources) Hip pain; Translations: [Pain in right hip] Onset: 4 06-27-2023 Episodic Other nutritional; endocrine; and metabolic disorders (1 source) Abnormal weight loss Onset: 1 Resolved: 1 Episodic Other screening for suspected conditions (not mental disorders or infectious disease) (20 sources) Encounter for screening mammogram for malignant neoplasm of breast; Translations: [Patient encounter status] Onset: 2 Episodic Residual codes; unclassified (20 sources) Body mass index 20-24 - normal; Translations: [Body mass index (BMI) 21.0-21.9, adult] Onset: 4 06-27-2023 Episodic Results Test Name Value Interpretation Reference Range Facility ALL CBC WITH AUTO DIFFon BASOPHILS ABSOLUTE AUTO 0 [facility] Basophils/100 WBC (Bld) 0.6 % 0.2 - 2.0 % [facility] Eosinophils/100 WBC (Bld) 1.2 % 0.9 - 7.0 % [facility] Erythrocyte distribution width (RBC) [Ratio] 13 % 11.0 - 15.0 % [facility] Hematocrit (Bld) [Volume fraction] 35.9 % Low 36.0 - 48.0 % [facility] Hemoglobin (Bld) [Mass/Vol] 12 g/dL 12.0 - 16.0 g/dL [facility] IMMATURE GRANULOCYTES ABS AUTO 0.02 [facility] Immature granulocytes/100 WBC (Bld) 0.4 % 0.0 - 0.5 % [facility] Interpretation and review of laboratory results Abnormal [facility] LYMPHOCYTES ABSOLUTE AUTO 0.8 Low [facility] Lymphocytes/100 WBC (Bld) 14.6 % Low 20.5 - 60.0 % [facility] MCH (RBC) [Entitic mass] 30.1 pg 26.7 - 34.0 pg [facility] MCHC (RBC) [Mass/Vol] 33.4 g/dL 29.9 - 35.2 g/dL [facility] MCV (RBC) [Entitic vol] 90 fL 81.0 - 99.0 fL [facility] MONOCYTES ABSOLUTE AUTO 0.4 [facility] Monocytes/100 WBC (Bld) 8.6 % 1.7 - 12.0 % [facility] NEUTROPHILS ABSOLUTE AUTO 3.8 [facility] Neutrophils/100 WBC (Bld) 74.6 % 43.0 - 75.0 % [facility] Platelet mean volume (Bld) [Entitic vol] 10.2 fL 9.5 - 13.5 fL [facility] TBH EO # 0.1 [facility] PLT 174 [facility] RBC 3.99 Low [facility] WBC 5.1 [facility] MLR HEMOGLOBIN A1Con 025 Glucose [Mass/Vol] 100 mg/dL [facility] HbA1c (Bld) [Mass fraction] 5.1 % 4.5 - 6.2 % [facility] Comment on above: ADA RECOMMENDED LIMI T 4.0 - 6.0 ADA THERAPEUTIC TARGET < 7.0 ACTION SUGGESTED > 7.[facility] Consult [id number] Shabana Bonilla 1955 F Date Provider Department Center 09/23/2024 CHAIM GABRIEL [facility] SURG Second Fl No family history on file Level of Service:44752 NC OFFICE/OUTPATIENT NEW LOW MDM 30 MINUTES Reason for Visit and Comments: Rectal Bleeding [475582] Normal [facility] MHPT VAGINITIS DNA PROBEon 0 09-10-2024 PT ALEKSANDR Negative NEG [facility] Comment on above: for Aleksandr sp. Method of testing is a DNA probe intended for detection and identification of Aleksandr species, Gardnerella vaginalis, and Trichomonas vaginalis nucleic acid in vaginal fluid specimens from patients with symptoms of vaginitis/vaginosis. MHPT GARDNERELLA Negative NEG [facility] Comment on above: for Gardnerella vagi nalis [facility] NE[facility] Comment on above: for Trichomonas Vagi nalis Original Ordering Pr ovider: KALIN VLADIMIRMacho CHANTEL [facility] Vaginitis DNA Probeon 2024 Aleksandr species Negative NEGATIVE [facility] Comment on above: for Aleksandr sp. Method of testing is a DNA probe intended for detection and identification of Aleksandr species, Gardnerella vaginalis, and Trichomonas vaginalis nucleic acid in vaginal fluid specimens from patients with symptoms of vaginitis/vaginosis. GARDNERELLA VAGINALIS Negative NEGATIVE [facility] Comment on above: for Gardnerella vagi nalis Source .VAGINAL SWAB [facility] Trichomonas Negative NEGATIVE [facility] Comment on above: for Trichomonas Vagi nalis [facility] Aleksandr Negative Normal [facility] Comment on above: Result Comment: for Aleksandr sp. Method of testing is a DNA probe intended for detection and identification of Aleksandr species, Gardnerella vaginalis, and Trichomonas vaginalis nucleic acid in vaginal fluid specimens from patients with symptoms of vaginitis/vaginosis. Performed By: #### V AGP #### [facility] [place], [place] [id number] Potato Chip Fryer: Daniel Dyer MD [facility] [address] [place] [address] [place] [address] Potato Chip Fryer: Panda Carbone MD Gardnerella Negative Normal [facility] Comment on above: Result Comment: for Gardnerella vaginalis Performed By: #### V AGP #### [facility] [address] [place] [address] Potato Chip Fryer: Daniel Dyer MD [facility] [address] [place] [address] [place] [address] Potato Chip Fryer: Panda Carbone MD Trichomonas Negative Normal [facility] Comment on above: Result Comment: for Trichomonas Vaginalis Performed By: #### V AGP #### [facility] [address] [place] [address] Potato Chip Fryer: Daniel Dyer MD [facility] [address] [place] [address] [place] [address] Potato Chip Fryer: Panda Carbone MD Source .VAGINAL SWAB Normal [facility] Comment on above: Performed By: #### V AGP #### [facility] [address] [place] [address] Potato Chip Fryer: Daniel Dyer MD [facility] [address] [place] [address] [place] [address] Potato Chip Fryer: Panda Carbone MD [facility] VAGINITIS DNA PROBEon 0 08-21-2024 Interpretation and review of laboratory results Abnormal [facility] ALEKSANDR Negative NEG [facility] Comment on above: for Aleksandr sp. Method of testing is a DNA probe intended for detection and identification of Aleksandr species, Gardnerella vaginalis, and Trichomonas vaginalis nucleic acid in vaginal fluid specimens from patients with symptoms of vaginitis/vaginosis. PT GARDNERELLA Positive Abnormal NEG [facility] Comment on above: for Gardnerella vagi nalis [facility] SOURCE .VAGINAL SWAB [facility] TRICHOMONAS Negative [facility] Comment on above: for Trichomonas Vagi nalis Original Ordering Pr ovider: KALIN CHONG [facility] Vaginitis DNA Probeon 2024 Aleksandr Negative Normal NEG [facility] Comment on above: Result Comment: for Aleksandr sp. Method of testing is a DNA probe intended for detection and identification of Aleksandr species, Gardnerella vaginalis, and Trichomonas vaginalis nucleic acid in vaginal fluid specimens from patients with symptoms of vaginitis/vaginosis. Performed By: #### V AGP #### [facility] [address] [place] [address] Potato Chip Fryer: Daniel Dyer MD [facility] [address] [place] [address] [place] [address] Potato Chip Fryer: Panda Carbone MD Gardnerella Positive Abnormal NEG [facility] Comment on above: Result Comment: for Gardnerella vaginalis Performed By: #### V AGP #### [facility] [address] [place] [address] Potato Chip Fryer: Daniel Dyer MD [facility] [address] [place] [address] [place] [address] Potato Chip Fryer: Panda Carbone MD Trichomonas Negative Normal NEG [facility] Comment on above: Result Comment: for Trichomonas Vaginalis Performed By: #### V AGP #### [facility] [address] [place] [address] Potato Chip Fryer: Daniel Dyer MD [facility] [address] [place] [address] [place] [address] Potato Chip Fryer: Panda Carbone MD Vaginitis DNA Probeon 2024 Source .VAGINAL SWAB Normal [facility] Comment on above: Performed By: #### V AGP #### [facility] [address] [place] [address] Potato Chip Fryer: Daniel Dyer MD [facility] [address] [place] [address] [place] [address] Potato Chip Fryer: Panda Carbone MD ALL THYROID STIM HORMONEon 1 06-22-2023 Interpretation and review of laboratory results Abnormal [facility] TSH Qn 9.973 m[IU]/L High [facility] Healthcare [facility] XR knee RT 4V*on 03-19-2024 XR knee RT 4V* [facility] [address] [place] [address] XRay Report Signed Patient: Alesha Bonilla MR#: [id number] 57 : 1955 Acct:[id number] Age/Sex: 68 / F ADM Date: 03/19/24 [facility] [facility] Room: Type: [facility] CLI Attending Dr: Bright Mccall II, MD Copies to: Bright Mccall MD Ordering Provider: Bright Mccall MD Date of Service: 03/19/24 XR/XR knee RT 4V*: M25.561 - Pain in right knee ([id number]) XR/XR pelvis 1-2V: M25.561 - Pain in right knee Single view of the pelvis plain film HISTORY: RIGHT knee deformity for 15 years COMPARISON: None ACUTE FINDINGS: None BONY ALIGNMENT: Adequate SOFT TISSUES: Unremarkable DEGENERATIVE CHANGE:Unremarkable INTRAPELVIC STRUCTURES: Unremarkable POSTSURGICAL CHANGES:None XR/XR pelvis 1-2V IMPRESSION:Unremarkable exam. 4 views RIGHT knee Valgus deformity. Uqkh-rb-ccca contact lateral degenerative change. Small joint effusion. No acute bony findings. IMPRESSION: Valgus deformity of the RIGHT knee. Extensive sprc-zm-itqd lateral degeneration. Impression dictated by: Dru Hu M.D.03/19/2024 3:48 PM Dictation Location: [place] [address] Transcribed By: [facility] 03/19/24 1548 Dictated By: Dru Hu DO 03/19/24 1547 Signed By: 03/19/24 1548 Normal [facility] Urine Cultureon 12-03-2023 Bacteria identified Cx Nom (U) <9,000 colonies/ml mixed bacterial skin contaminants 2 Days PERFORMED BY: [place] [address] PATHOLOGIST FILM LOADER DON BOSTON M.D. Normal [facility] Comment on above: Performed By: #### C UU #### [address] Outside Colonoscopyon 2023 Outside Colonoscopy [id number]#1.00TIFF Normal [facility] Reminderson 08-01-2023 Reminders - From: Siobhan Jernigan LPN To: GSN - Clinical; Sent: 08/01/2023 14:37:14 EDT Show up: 07/02/2033 07:00:00 EST Subject: colonoscopy recall Due Date/Time: 07/30/2033 07:00:00 EDT Reminder/Recall Patient due for screening colonoscopy 07/30/2033. Normal [facility] Transfer Inon 07-19-2023 Transfer In [id number]#1.00TIFF Normal [facility] Blood Urea Nitrogenon 2023 Urea nitrogen [Mass/Vol] 16 mg/dL Normal 7-25 [facility] Comment on above: Order Comment: STAT FOR CT Performed By: #### B UN, CREAT #### [address] abdomen pelvis w conon CT abdomen pelvis w con [facility] Main [place] [address] [place] [address] CT Scan Report Signed Patient: Alesha Bonilla MR#: [id number] 57 : 1955 Acct:[id number] Age/Sex: 68 / F ADM Date: 07/18/23 Loc: CT Room: Type: [facility] Attending Dr: Fay Pascal Copies to: [...] Impression dictated by: Jose Miguel Cox Jr., DBlancaOBlanca07/18/2023 11:49 AM Dictation Location: [place] [address] Transcribed By: [facility] 07/18/23 1149 Dictated By: Jose Miguel Cox Jr, DO 07/18/23 1144 Signed By: 07/18/23 1149 Normal [facility] Creatinineon 07-18-2023 Creatinine [Mass/Vol] 0.82 mg/dL Normal 0.60-1.20 [facility] Comment on above: Order Comment: STAT FOR CT Performed By: #### B UN, CREAT #### [facility] [address] [place] [address] GFR/1.73 sq M.predicted MDRD (S/P/Bld) [Vol rate/Area] mL/min/{1.73_m2} Normal [facility] Comment on above: Order Comment: STAT FOR CT Result Comment: PERF ORMED BY: [place] [address] PATHOLOGIST FILM LOADER DON BOSTON M.D. Performed By: #### B UN, CREAT #### [facility] [address] [place] [address] Facesheeton 07-11-2023 Facesheet [id number]#[id number] Normal [facility] Ambulatory Visit Summaryon 0 07-10-2023 Ambulatory Visit [...] for choosing us for your care. Normal [facility] Physician Referralon 024 Physician Referral [id number]#[id number] Normal [facility] ALL CBC WITH AUTO DIFFon BASOPHILS ABSOLUTE AUTO 0.0 [facility] Basophils/100 WBC (Bld) 0.8 % 0.2 - 2.0 % [facility] Eosinophils/100 WBC (Bld) 1.2 % 0.9 - 7.0 % [facility] Erythrocyte distribution width (RBC) [Ratio] 12.5 % 11.0 - 15.0 % [facility] Hematocrit (Bld) [Volume fraction] 39.2 % 36.0 - 48.0 % [facility] Hemoglobin (Bld) [Mass/Vol] 12.9 g/dL 12.0 - 16.0 g/dL [facility] IMMATURE GRANULOCYTES ABS AUTO 0.01 [facility] Immature granulocytes/100 WBC (Bld) 0.2 % 0.0 - 0.5 % [facility] Interpretation and review of laboratory results Abnormal [facility] LYMPHOCYTES ABSOLUTE AUTO 0.7 Low [facility] Lymphocytes/100 WBC (Bld) 14.3 % Low 20.5 - 60.0 % [facility] MCH (RBC) [Entitic mass] 29.9 pg 26.7 - 34.0 pg [facility] MCHC (RBC) [Mass/Vol] 32.9 g/dL 29.9 - 35.2 g/dL [facility] MCV (RBC) [Entitic vol] 90.7 fL 81.0 - 99.0 fL [facility] MONOCYTES ABSOLUTE AUTO 0.5 [facility] Monocytes/100 WBC (Bld) 9.4 % 1.7 - 12.0 % [facility] NEUTROPHILS ABSOLUTE AUTO 3.9 [facility] Neutrophils/100 WBC (Bld) 74.1 % 43.0 - 75.0 % [facility] Platelet mean volume (Bld) [Entitic vol] 10.2 fL 9.5 - 13.5 fL [facility] EO # 0.1 [facility] PLT 181 [facility] RBC 4.32 [facility] WBC 5.2 [facility] CNOVon 07-30-2022 CNOV Office Visit ([facility] ) ALESHA BONILLA ([id number]) 1955 F Date Time Provider Department 07/30/22 10:00 AM LORRAINE CHRISTINE During your visit today, we recorded [...] and colonoscopy ( brought to front office supervisor to be scanned in) were completed and [...] liver disea (more content not included)... Normal [facility] HISTORY PHYSICALon 3 HISTORY PHYSICAL HNO ID: [id number] Author: Lorraine Christine PA-C Service: ? Author Type: Physician Cloth Roll Winder Type: HANDP Filed: 07/30/2022 11:25 AM Note [...] and colonoscopy ( brought to front office supervisor to be scanned in) were completed and [...] cord stimula (more content not included)... Normal [facility] MG MAMM SCREEN 3D NEETA CADon 05-09-2022 MG MAMM SCREEN 3D NEETA CAD Patient: ALESHA BONILLA Exam Date: 05/09/2022 : 1955 Gender:F Ordering : DR PHOENIX GARNER . Admission #: [id number] Family : Order #: [id number] CLICK HERE TO VIEW EXAM RADIOLOGY REPORT [...] lung cancer at age 74. LOCATION: [facility] BREAST COMPOSITION: Scattered areas fibroglandular density. [...] M.D. on 05/09/2022 at 10:59 Normal [facility] CBC AUTO DIFFon 10-18-2021 BASO # 0.0 103/ul Normal 0.0-0.1 [facility] Comment on above: Performed By: #### C BC #### [facility] [address] [place] [address] [address] William García Basophils/100 WBC (Bld) 0.8 % Normal 0.2-2.0 [facility] Comment on above: Performed By: #### C BC #### [facility] [address] [place] [address] [address] William García EO # 0.1 103/ul Normal 0.0-0.7 [facility] Comment on above: Performed By: #### C BC #### [facility] [address] [place] [address] Dr. William García Eosinophils/100 WBC (Bld) 2.0 % Normal 0.9-7.0 [facility] Comment on above: Performed By: #### C BC #### [facility] [address] [place] [address] Dr. William García Erythrocyte distribution width (RBC) [Ratio] 12.7 % Normal 11.0-15.0 [facility] Comment on above: Performed By: #### C BC #### [facility] [address] [place] [address] Dr. William García Hematocrit (Bld) [Volume fraction] 39.2 % Normal 36.0-48.0 [facility] Comment on above: Performed By: #### C BC #### [facility] [address] [place] [address] Dr. William García Hemoglobin (Bld) [Mass/Vol] 12.8 g/dL Normal 12.0-16.0 [facility] Comment on above: Performed By: #### C BC #### [facility] [address] [place] [address] Dr. William García IG # 0.01 10e3/ul Normal 0.00-0.03 [facility] Comment on above: Performed By: #### C BC #### [facility] [address] [place] [address] Dr. William García IG % 0.2 % Normal 0.0-0.5 [facility] Comment on above: Performed By: #### C BC #### [facility] [address] [place] [address] Dr. William García LYMPH # 0.9 103/ul Critically low 1.2-3.8 [facility] Comment on above: Performed By: #### C BC #### [facility] [address] [place] [address] Dr. William García Lymphocytes/100 WBC (Bld) 17.4 % Critically low 20.5-60.0 [facility] Comment on above: Performed By: #### C BC #### [facility] [address] [place] [address] Dr. William García MANUAL DIFF REQ NO Normal [facility] Comment on above: Performed By: #### C BC #### [facility] [address] [place] [address] Dr. William García MCH (RBC) [Entitic mass] 30.0 pg Normal 26.7-34.0 [facility] Comment on above: Performed By: #### C BC #### [facility] [address] [place] [address] Dr. William García MCHC (RBC) [Mass/Vol] 32.7 g/dL Normal 29.9-35.2 [facility] Comment on above: Performed By: #### C BC #### [facility] [address] [place] [address] Dr. William García MCV (RBC) [Entitic vol] 91.8 fL Normal 81.0-99.0 [facility] Comment on above: Performed By: #### C BC #### [facility] [address] [place] [address] Dr. William García MONO # 0.5 103/ul Normal 0.3-0.8 [facility] Comment on above: Performed By: #### C BC #### [facility] [address] [place] [address] Dr. William García Monocytes/100 WBC (Bld) 10.7 % Normal 1.7-12.0 [facility] Comment on above: Performed By: #### C BC #### [facility] [address] [place] [address] Dr. William García NEUT # 3.5 103/ul Normal 1.4-6.5 [facility] Comment on above: Performed By: #### C BC #### [facility] [address] [place] [address] [address] William García Neutrophils/100 WBC (Bld) 68.9 % Normal 43.0-75.0 [facility] Comment on above: Performed By: #### C BC #### [facility] [address] [place] [address] [address] William García Platelet mean volume (Bld) [Entitic vol] 10.3 fL Normal 9.5-13.5 [facility] Comment on above: Performed By: #### C BC #### [facility] [address] [address] [address] William García PLT 189 103/ul Normal 150-450 [facility] Comment on above: Performed By: #### C BC #### [facility] [address] [address] [address] William García RBC 4.27 106/ul Normal 4.20-5.40 [facility] Comment on above: Performed By: #### C BC #### [facility] [address] [address] [address] William García WBC 5.1 103/ul Normal 4.0-11.0 [facility] Comment on above: Performed By: #### C BC #### [facility] [address] [place] [address] Dr. William García FREE T3on 10-18-2021 FREE T3 2.63 pg/mlL Normal 2.18-3.98 [facility] Comment on above: Performed By: #### F T3, TSH, AST, LIPID, ALT, BMP ####[facility] [address] [place], [place] [address]BlDr. William García FREE T4on 10-18-2021 Free T4 [Mass/Vol] 1.42 ng/dL Normal 0.76-1.46 [facility] Comment on above: Performed By: #### F T4, VITAD #### [facility] [address] [address] [address] William García GLYCOHEMOGLOBIN A1Con 2021 ADA RECOMMENDATION SEE BELOW Normal [facility] Comment on above: Result Comment: ADA RECOMMENDED LIMIT 4.0 - 6.0 ADA THERAPEUTIC TARGET < 7.0 ACTION SUGGESTED > 7.0 Performed By: #### A 1C #### [facility] [address] [address] [address] William García Glucose [Mass/Vol] 105 mg/dL Normal [facility] Comment on above: Performed By: #### A 1C #### [facility] [address] [address] [address] William García HbA1c (Bld) [Mass fraction] 5.3 % Normal 4.5-6.2 [facility] Comment on above: Performed By: #### A 1C #### [facility] [address] [address] [address] William García LIPID PROFILEon 10-18-2021 CHOL-HDL RATIO NORM SEE BELOW Normal [facility] Comment on above: Result Comment: 3.3 - 4.4 LOW RISK 4.4 - 7.1 AVERAGE RISK 7.1 - 11.0 MODERATE RISK >11.0 HIGH RISK Performed By: #### F T3, TSH, AST, LIPID, ALT, BMP ####[facility] [address] [address]DrBlanca García Cholesterol [Mass/Vol] 222 mg/dL Critically high <=200 [facility] Comment on above: Performed By: #### F T3, TSH, AST, LIPID, ALT, BMP ####[facility] [address] [address]DrBlanca García Cholesterol in HDL [Mass/Vol] 76 mg/dL Critically high 40-60 [facility] Comment on above: Performed By: #### F T3, TSH, AST, LIPID, ALT, BMP ####[facility] [address] [address]DrBlanca García Cholesterol in LDL [Mass/Vol] 136.4 mg/dL Normal [facility] Comment on above: Performed By: #### F T3, TSH, AST, LIPID, ALT, BMP ####[facility] [address] [address]DrBlanca García Cholesterol.total/ Cholesterol in HDL [Mass ratio] 2.9 {ratio} Normal [facility] Comment on above: Performed By: #### F T3, TSH, AST, LIPID, ALT, BMP ####[facility] [address] [id number]. William García HDL NORMAL > or = 60 mg/dl - LO W CARDIOVASCULAR RISK <40 mg/dl - HIGH CARDIOVASCULAR RISK Normal [facility] Comment on above: Performed By: #### F T3, TSH, AST, LIPID, ALT, BMP ####[facility] [address] [id number]. William García LDL CALC NORMAL SEE BELOW Normal [facility] Comment on above: Result Comment: <100 mg/dl OPTIMAL 100 - 129 mg/dl NEAR OR ABOVE OPTIMAL 130 - 159 mg/dl BORDERLINE HIGH 160 - 189 mg/dl HIGH >190 mg/dl VERY HIGH Performed By: #### F T3, TSH, AST, LIPID, ALT, BMP ####[facility] [address] [address]Dr. William García Triglyceride [Mass/Vol] 48 mg/dL Normal <=150 [facility] Comment on above: Performed By: #### F T3, TSH, AST, LIPID, ALT, BMP ####[facility] [address] [id number]. William García VLDL CALC 9.6 mg/dL Normal [facility] Comment on above: Performed By: #### F T3, TSH, AST, LIPID, ALT, BMP ####[facility] [address] [id number]. William García PROF CHEM 8 (BAS METB)on Anion gap [Moles/Vol] 11.6 mmol/L Normal [facility] Comment on above: Performed By: #### F T3, TSH, AST, LIPID, ALT, BMP ####[facility] [address] [id number]. William García Calcium [Mass/Vol] 9.0 mg/dL Normal 8.5-10.1 [facility] Comment on above: Performed By: #### F T3, TSH, AST, LIPID, ALT, BMP ####[facility] [address] [address]Dr. William García Chloride [Moles/Vol] 106 mmol/L Normal 98-107 [facility] Comment on above: Performed By: #### F T3, TSH, AST, LIPID, ALT, BMP ####[facility] [address] [address]Dr. William García CO2 [Moles/Vol] 28.4 mmol/L Normal 21.0-32.0 [facility] Comment on above: Performed By: #### F T3, TSH, AST, LIPID, ALT, BMP ####[facility] [address] [place], [place] [address]Dr. William García Creatinine [Mass/Vol] 0.64 mg/dL Normal 0.55-1.02 [facility] Comment on above: Performed By: #### F T3, TSH, AST, LIPID, ALT, BMP ####[facility] [address] [place], [place] [address]Dr. William García EGFR-AF TOGOLESE >60 Normal >=60 [facility] Comment on above: Performed By: #### F T3, TSH, AST, LIPID, ALT, BMP ####[facility] [address] [address]Dr. William García EGFR-NON AF TOGOLESE >60 Normal >=60 [facility] Comment on above: Performed By: #### F T3, TSH, AST, LIPID, ALT, BMP ####[facility] [address] [address]Dr. William García Glucose [Mass/Vol] 87 mg/dL Normal 74-106 [facility] Comment on above: Performed By: #### F T3, TSH, AST, LIPID, ALT, BMP ####[facility] [address] [address]Dr. William García Potassium [Moles/Vol] 4.0 mmol/L Normal 3.5-5.1 [facility] Comment on above: Performed By: #### F T3, TSH, AST, LIPID, ALT, BMP ####[facility] [address] [address]Dr. William García Sodium [Moles/Vol] 142 mmol/L Normal 136-145 [facility] Comment on above: Performed By: #### F T3, TSH, AST, LIPID, ALT, BMP ####[facility] [address] [address]Dr. William García Urea nitrogen [Mass/Vol] 14.0 mg/dL Normal 7.0-18.0 [facility] Comment on above: Performed By: #### F T3, TSH, AST, LIPID, ALT, BMP ####[facility] [address] [address]Dr. William García Urea nitrogen/Creatinin e [Mass ratio] 21.9 mg/mg Normal [facility] Comment on above: Performed By: #### F T3, TSH, AST, LIPID, ALT, BMP ####[facility] [address] [address]Dr. William García SGOTon 10-18-2021 AST [Catalytic activity/Vol] 18 U/L Normal 15-37 [facility] Comment on above: Performed By: #### F T3, TSH, AST, LIPID, ALT, BMP #### [facility] [address] [address] DrBlanca García SGPTon 10-18-2021 ALT [Catalytic activity/Vol] 24 U/L Normal 14-59 [facility] Comment on above: Performed By: #### F T3, TSH, AST, LIPID, ALT, BMP ####[facility] [address] [address]Dr. William García TSHon 10-18-2021 TSH 0.729 uIU/mL Normal 0.358-3.740 [facility] Comment on above: Performed By: #### F T3, TSH, AST, LIPID, ALT, BMP ####[facility] [address] [address]Dr. William García TSH RANGE SEE BELOW Normal [facility] Comment on above: Result Comment: <0.3 4 UIU/ml HYPERTHYROID 0.34-5.60 UIU/ml EUTHYROID >5.60 UIU/ml HYPOTHYROID Performed By: #### F T3, TSH, AST, LIPID, ALT, BMP ####[facility] [address] [place], [place] [address]Dr. William García VITAMIN D 25 OHon 10-18-2021 VIT D 25-OH 25.2 ng/mL Normal [facility] Comment on above: Performed By: #### F T4, VITAD #### [facility] [address] [address] [address] William García VIT D RANGES SEE BELOW Normal [facility] Comment on above: Result Comment: <20 ng/mL Vit D deficient 20 - <30 ng/mL Vit D insufficient 30 - 100 ng/mL Vit D sufficient >100 ng/mL Potential Toxicity Performed By: #### F T4, VITAD #### [facility] [address] [address] [address] William García FREE T3 [facility] 06-01-2021 Triiodothyronine (T3) Free 2.5 pg/mL Normal 2.0-4.4 [facility] Comment on above: Performed By: #### F T3LC #### [facility] [address] [address] [address] William García VIT D 25-OH [facility] 2021 Vitamin D, 25-Hydroxy 23.2 ng/mL Critically low 30.0-100.0 [facility] Comment on above: Result Comment: Melissa min D deficiency has been defined by the [place] [employer] and an Endocrine Society practice guideline as a level of serum 25-OH vitamin D less than 20 ng/mL (1,2). The Endocrine Society went on to further define vitamin D insufficiency as a level between 21 and 29 ng/mL (2). 1. IOM ([place] [employer]). 2010. Dietary reference intakes for calcium and D. [place]: The National Academies Press. 2. Ashley MF, Nicole [place], Mac ALMEIDA, et al. Evaluation, treatment, and prevention of vitamin D deficiency: an Endocrine Society clinical practice guideline. JCEM. 2011 Chuck; 96(7):1911-30. Performed By: #### V ITADLC #### [facility] [address] [place] [address] Dr. William García FREE T4on 05-31-2021 Free T4 [Mass/Vol] 0.96 ng/dL Normal 0.78-2.19 [facility] Comment on above: Performed By: #### F T4 #### [facility] [address] [place] [address] Dr. William García TSHon 05-31-2021 TSH 9.014 uIU/mL Critically high 0.470-4.680 [facility] Comment on above: Performed By: #### T SH #### [facility] [address] [place] [address] Dr. William García TSH RANGE SEE BELOW Normal [facility] Comment on above: Result Comment: <0.3 4 UIU/ml HYPERTHYROID 0.34-5.60 UIU/ml EUTHYROID >5.60 UIU/ml HYPOTHYROID Performed By: #### T SH #### [facility] [address] [place] [address] Dr. William García Vital Signs Date Time Vital Sign Value Performing Clinician Facility 01-12-2025 10:06-0400 Body mass index (BMI) [Ratio] 22.11 kg/m2 Fay Pascal [employer] Work Phone: [facility] 01-12-2025 10:06-0400 Body temperature 98.1 [degF] Fay Pascal [employer] Work Phone: [facility] 01-12-2025 10:06-0400 Body weight 62.14 kg Fay Pascal [employer] Work Phone: [facility] 01-12-2025 10:06-0400 Diastolic blood pressure 66 mm[Hg] Fay Pascal [employer] Work Phone: [facility] 01-12-2025 10:06-0400 Heart rate 84 /min Fay Pascal [employer] Work Phone: [facility] 01-12-2025 10:06-0400 Respiratory rate 18 /min Fay Pascal [employer] Work Phone: [facility] 01-12-2025 10:06-0400 SaO2% (BldA) [Mass fraction] 99 % Fay Pascal [employer] Work Phone: [facility] 01-12-2025 10:06-0400 Systolic blood pressure 94 mm[Hg] Fay Pascal [employer] Work Phone: [facility] 09-29-2024 09:14-0400 Body height 167.6 cm Melyssajoel Dickerson DPM Work Phone: [facility] 09-29-2024 09:14-0400 Body mass index (BMI) [Ratio] 22.11 kg/m2 Melyssajoel Dickerson DPM Work Phone: [facility] 09-29-2024 09:14-0400 Body weight 62.14 kg Melyssa Jayla DPM Work Phone: [facility] 03-18-2024 09:17-0400 Body height 167.64 cm MD Bright Mccall II Work Phone: [facility] 03-18-2024 09:17-0400 Body mass index (BMI) [Ratio] 21.9 kg/m2 MD Bright Mccall II Work Phone: [facility] 03-18-2024 09:17-0400 Body weight 61.68 kg MD Bright Mccall II Work Phone: [facility] 02-19-2024 09:00-0400 Body height 167.6 cm Fay Pascal [employer] Work Phone: [facility] 02-19-2024 09:00-0400 Body mass index (BMI) [Ratio] 22.21 kg/m2 Fay Pascal [employer] Work Phone: [facility] 02-19-2024 09:00-0400 Body temperature 98.1 [degF] Fay Aichholz [employer] Work Phone: [facility] 02-19-2024 09:00-0400 Body weight 62.41 kg Fay Aichholz [employer] Work Phone: [facility] 02-19-2024 09:00-0400 Diastolic blood pressure 60 mm[Hg] Fay Aichholz [employer] Work Phone: [facility] 02-19-2024 09:00-0400 Heart rate 59 /min Fay Aichholz [employer] Work Phone: [facility] 02-19-2024 09:00-0400 Respiratory rate 19 /min Fay Aichholz [employer] Work Phone: [facility] 02-19-2024 09:00-0400 SaO2% (BldA) [Mass fraction] 98 % Fay Aichholz [employer] Work Phone: [facility] 02-19-2024 09:00-0400 Systolic blood pressure 88 mm[Hg] Fay Aichholz [employer] Work Phone: [facility] 01-07-2024 10:37-0400 Body height 167.6 cm Fay Aichholz [employer] Work Phone: [facility] 01-07-2024 10:37-0400 Body mass index (BMI) [Ratio] 21.82 kg/m2 Fay Aichholz [employer] Work Phone: [facility] 01-07-2024 10:37-0400 Body temperature 97.5 [degF] Fay Aichholz [employer] Work Phone: [facility] 01-07-2024 10:37-0400 Body weight 61.33 kg Fay Aichholz [employer] Work Phone: [facility] 01-07-2024 10:37-0400 Diastolic blood pressure 76 mm[Hg] Fay Aichholz [employer] Work Phone: [facility] 01-07-2024 10:37-0400 Heart rate 61 /min Fay Aichholz [employer] Work Phone: [facility] 01-07-2024 10:37-0400 Respiratory rate 18 /min Fay Pascal [employer] Work Phone: [facility] 01-07-2024 10:37-0400 SaO2% (BldA) [Mass fraction] 98 % Fay Pascal [employer] Work Phone: [facility] 01-07-2024 10:37-0400 Systolic blood pressure 102 mm[Hg] Fay Pascal [employer] Work Phone: [facility] 12-03-2023 17:43-0400 Body height 167.64 cm [facility] 12-03-2023 17:43-0400 Body mass index (BMI) [Ratio] 21.7 kg/m2 [facility] 12-03-2023 17:43-0400 Body temperature 97.8 [degF] [facility] 12-03-2023 17:43-0400 Body weight 60.89 kg [facility] 12-03-2023 17:43-0400 Diastolic blood pressure 88 mm[Hg] [facility] 12-03-2023 17:43-0400 Heart rate 86 /min [facility] 12-03-2023 17:43-0400 Respiratory rate 16 /min [facility] 12-03-2023 17:43-0400 SaO2% (BldA) [Mass fraction] 96 % [facility] 12-03-2023 17:43-0400 Systolic blood pressure 126 mm[Hg] [facility] 07-10-2023 14:08-0500 Blood Pressure Location Jose M SANTO [facility] 07-10-2023 14:08-0500 Diastolic blood pressure 70 mm[Hg] Jose M SANTO [facility] 07-10-2023 14:08-0500 Heart rate 74 /min Jose M SANTO [facility] 02-21-2024 14:08-0500 Respiratory rate 16 /min Jose M SANTO [facility] [place] 07-10-2023 14:08-0500 Systolic blood pressure 114 mm[Hg] Jose M SANTO [facility] [place] 06-27-2023 09:43-0500 Body height 167.6 cm Fay Federicaz [employer] Work Phone: [facility] 06-27-2023 09:43-0500 Body mass index (BMI) [Ratio] 21.89 kg/m2 Fay Aichholz [employer] Work Phone: [facility] 06-27-2023 09:43-0500 Body temperature 97.11 [degF] Fay Aichholz [employer] Work Phone: [facility] 06-27-2023 09:43-0500 Body weight 61.51 kg Fay Aichholz [employer] Work Phone: [facility] 06-27-2023 09:43-0500 Diastolic blood pressure 62 mm[Hg] Fay Aichholz [employer] Work Phone: [facility] 06-27-2023 09:43-0500 Heart rate 67 /min Fay Aichholz [employer] Work Phone: [facility] 06-27-2023 09:43-0500 Respiratory rate 18 /min Fay Aichholz [employer] Work Phone: [facility] 06-27-2023 09:43-0500 SaO2% (BldA) [Mass fraction] 97 % Fay Aichholz [employer] Work Phone: [facility] 06-27-2023 09:43-0500 Systolic blood pressure 98 mm[Hg] Fay Aichholz [employer] Work Phone: [facility] 07-30-2022 09:36-0400 Body height 167.6 cm Lorraine Christine PA-C Work Phone: [facility] 07-30-2022 09:36-0400 Body temperature 97.81 [degF] Lorraine Sankovic PA-C Work Phone: [facility] 07-30-2022 09:36-0400 Body weight 65.77 kg Lorraine Sankovic PA-C Work Phone: [facility] 07-30-2022 09:36-0400 Diastolic blood pressure 59 mm[Hg] Lorraine Sankovic PA-C Work Phone: [facility] 07-30-2022 09:36-0400 Heart rate 65 /min Lorraine Sankovic PA-C Work Phone: [facility] 07-30-2022 09:36-0400 SaO2% (BldA) [Mass fraction] 98 % Lorraine Sankovic PA-C Work Phone: [facility] 07-30-2022 09:36-0400 Systolic blood pressure 109 mm[Hg] Lorraine Garykovic PA-C Work Phone: [facility] 10-10-2021 10:30-0400 Body height 167.64 cm Panda Santos Other [facility] Other 10-10-2021 10:30-0400 Body mass index (BMI) [Ratio] 22.27 kg/m2 Panda Santos Other [facility] Other 10-10-2021 10:30-0400 Body temperature 96.4 [degF] Panda Santos Other [facility] Other 10-10-2021 10:30-0400 Body weight 62.6 kg Panda Santos Other [facility] Other 10-10-2021 10:30-0400 Diastolic blood pressure 68 mm[Hg] Panda Santos Other [facility] Other 05-24-2022 10:30-0400 SaO2% (BldA) [Mass fraction] 99 % Panda Santos Other [facility] Other 10-10-2021 10:30-0400 Systolic blood pressure 103 mm[Hg] Panda Santos Other [facility] Other 07-18-2021 16:00-0500 Body height 167.64 cm Panda Hicks Other [facility] Other 07-18-2021 16:00-0500 Body mass index (BMI) [Ratio] 22.92 kg/m2 Panda Hicks Other [facility] Other 07-18-2021 16:00-0500 Body weight 64.41 kg Panda Fabiola Other [facility] Other 07-18-2021 16:00-0500 Diastolic blood pressure 67 mm[Hg] Panda Hicks Other [facility] Other 07-18-2021 16:00-0500 Systolic blood pressure 119 mm[Hg] Panda Hicks Other [facility] Other 06-15-2021 11:00-0500 Body height 167.64 cm Panda Fabiola Other [facility] Other 06-15-2021 11:00-0500 Body mass index (BMI) [Ratio] 22.43 kg/m2 Panda Hicks Other [facility] Other 06-15-2021 11:00-0500 Body weight 63.05 kg Panda Fabiola Other [facility] Other 02-23-2021 16:30-0400 Body height 167.64 cm Kelsey Pop Other [facility] Other 02-23-2021 16:30-0400 Body mass index (BMI) [Ratio] 22.59 kg/m2 Kelsey Pop Other [facility] Other 02-23-2021 16:30-0400 Body weight 63.5 kg Kelsey Pop Other [facility] Other Encounters Encounter Date Encounter Type Care Provider Facility Start: 01-12-2025 End: 01-12-2025 Clinisync Result Encounter Fay Pascal [employer] Work Phone: [facility] External Department Unsolicited Start: 01-12-2025 End: 01-12-2025 Clinisync Result Encounter Fay Pascal [employer] Work Phone: [facility] External Department Unsolicited Start: 01-12-2025 End: 01-12-2025 Patient encounter procedure Fay Pascal [employer] Work Phone: [facility] Comment on above: Encounter for subseq uent annual wellness visit (AWV) in Medicare patient (Primary Dx); Obstructive sleep apnea syndrome; Dyslipidemia ; Encounter for screening mammogram for malignant neoplasm of breast; Osteoporosis, postmenopausal ; Vitamin D deficiency; Prediabetes; Hypothyroidism, adult ; Heart murmur; Nonrheumatic aortic valve insufficiency Start: 01-12-2025 End: 01-12-2025 ambulatory FAY NAIDA Not Available Start: 12-08-2024 End: 12-09-2024 Refill Fay Pascal [employer] Work Phone: [facility] Comment on above: Hypothyroidism, adul t Start: 09-29-2024 End: 09-29-2024 Office outpatient visit 15 minutes Melyssa Dickerson DPM Work Phone: [facility] Comment on above: Dermatophytosis of n ail (Primary Dx); Dystrophic nail; Pain around toenail, left foot; Pain around toenail, right foot; Difficulty walking Start: 09-29-2024 End: 09-29-2024 ambulatory MELYSSA DICKERSON Not Available Start: 09-23-2024 End: 09-23-2024 ambulatory CHAIM JEWELL [facility] Start: 09-10-2024 End: 09-10-2024 Clinisync Result Encounter Generic External Data Provider [facility] External Department Unsolicited Start: 09-10-2024 End: 09-10-2024 Clinisync Result Encounter Generic External Data Provider [facility] External Department Unsolicited Start: 09-10-2024 End: 09-10-2024 ambulatory FAY PASCAL [facility] Start: 09-10-2024 End: 09-10-2024 Subsequent hospital visit by physician Fay Marcelino NP Work Phone: [facility] Comment on above: Vaginal discharge Start: 09-08-2024 End: 09-08-2024 Orders Only Fay Pascal NP Work Phone: [facility] Comment on above: Rectal bleeding (Geraldine yesica Dx) Start: 08-27-2024 End: 08-27-2024 Refill Fay Pascal NP Work Phone: [facility] Comment on above: Hypothyroidism, adul t ([facility]) Start: 08-20-2024 End: 08-21-2024 Clinisync Result Encounter Generic External Data Provider [facility] External Department Unsolicited Start: 08-20-2024 End: 08-21-2024 Clinisync Result Encounter Generic External Data Provider [facility] External Department Unsolicited Start: 08-20-2024 End: 08-20-2024 ambulatory KALIN HARRISON [facility] Start: 08-20-2024 End: 08-20-2024 Subsequent hospital visit by physician Fay Marcelino NP Work Phone: [facility] Comment on above: Vaginal discharge Start: 06-09-2024 End: 06-09-2024 Refill Fay Pascal [employer] Work Phone: [facility] Comment on above: Hypothyroidism, adul t (CMS/HCC) (Primary Dx) Start: 04-23-2024 End: 04-23-2024 Refill Fay Naida [employer] Work Phone: [facility] Comment on above: Hypothyroidism, adul t (CMS/HCC) (Primary Dx) Start: 04-21-2024 End: 04-21-2024 Clinisync Result Encounter Fay Pascal [employer] Work Phone: [facility] External Department Unsolicited Start: 04-21-2024 End: 04-21-2024 Clinisync Result Encounter Fay Pascal [employer] Work Phone: [facility] External Department Unsolicited Start: 03-19-2024 End: 03-19-2024 Patient encounter procedure MD Bright Mccall II Work Phone: [facility] Work Phone: Start: 03-19-2024 End: 03-19-2024 ambulatory NON STAFF [facility] Work Phone: Start: 02-19-2024 End: 02-19-2024 Bamboo flowsheet Fay Pascal [employer] Work Phone: [facility] Start: 02-19-2024 End: 02-19-2024 Bamboo flowsheet Fay Pascal [employer] Work Phone: [facility] Start: 02-19-2024 End: 02-19-2024 Office outpatient visit 25 minutes Fay Pascal [employer] Work Phone: [facility] Comment on above: Hypothyroidism, adul t (CMS/HCC) (Primary Dx); Heart murmur; Obstructive sleep apnea syndrome Start: 02-19-2024 End: 02-19-2024 Refill Fay Naida [employer] Work Phone: [facility] Comment on above: Hypothyroidism, adul t (CMS/HCC) (Primary Dx) Start: 01-07-2024 End: 01-07-2024 Bamboo flowsheet Fay Naida [employer] Work Phone: [facility] Start: 01-07-2024 End: 01-07-2024 Bamboo flowsheet Fay Sosadexter [employer] Work Phone: [facility] Start: 01-07-2024 End: 01-07-2024 Patient encounter procedure Fay Sosadexter [employer] Work Phone: [facility] Comment on above: Encounter for subseq uent annual wellness visit (AWV) in Medicare patient (Primary Dx); Hypothyroidism, adult ([facility]); Encounter for screening mammogram for malignant neoplasm of breast; Vitamin D deficiency; Osteoporosis, 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[facility]); Heart murmur; Obstructive sleep apnea syndrome Start: 12-03-2023 End: 12-03-2023 Departed Referred DIRECTOR OF GOVERNMENT SALES Christiane Wade Work Phone: [facility] [place] Work Phone: Start: 12-03-2023 End: 12-03-2023 ambulatory Christiane Wade [facility] Work Phone: Start: 12-03-2023 End: 12-03-2023 Patient encounter procedure [facility] Physician [facility] Work Phone: Start: 07-31-2023 End: 08-01-2023 ambulatory Jose M SANTO Facility: [facility] Start: 07-18-2023 End: 07-18-2023 ambulatory Phoenix Garner Facility:[facility] Start: 07-10-2023 End: 07-11-2023 ambulatory Jose M SANTO Facility:[facility] Start: 07-10-2023 End: 07-10-2023 Patient encounter procedure Jose M SANTO General Surgery N[facility] Start: 06-27-2023 ambulatory Jose M SANTO Facility:[facility] Start: 06-27-2023 Bamboo flowsheet Fay Pascal [employer] Work Phone: [facility] Start: 06-27-2023 Bamboo flowsheet Fay Pascal [employer] Work Phone: [facility] Start: 06-27-2023 Clinisync Result Encounter Fay Pascal [employer] Work Phone: [facility] Department Unsolicited Start: 06-27-2023 End: 06-27-2023 Office outpatient visit 25 minutes Fay Pascal [employer] Work Phone: [facility] Comment on above: Rectal bleeding (Geraldine yesica Dx); Hypothyroidism, adult (CMS/HCC); Vitamin D deficiency; BMI 21.0-21.9, adult; Heart murmur Start: 07-30-2022 End: 07-30-2022 ambulatory LORRAINE CHRISTINE Facility:[facility] Start: 07-30-2022 End: 07-30-2022 Patient encounter procedure Lorraine Christine KS-C Work Phone: Colorectal Surgery Comment on above: Rectal discharge (Pr imary Dx) Start: 05-09-2022 End: 05-10-[address] PHOENIX AGRNER Facility: Start: 10-18-2021 End: 10-19-[address] PHOENIX GARNER Facility:[facility] Start: 10-10-2021 End: 10-10-2021 ambulatory Panda Santos Other [employer] Other Start: 10-10-2021 Office outpatient vi sit 40 minutes Panda Santos [facility] Start: 07-18-2021 End: 07-18-2021 ambulatory Panda Hicks Other [employer] Other Start: 07-18-2021 Office outpatient vi sit 15 minutes Panda Hicks [facility] G[facility] Start: 06-20-2021 End: 06-20-2021 ambulatory Panda Hicks Other [employer] Other Start: 06-20-2021 Telephone encounter Panda Hicks [facility] Start: 06-15-2021 End: 06-15-2021 ambulatory Panda Hicks Other [employer] Other Start: 06-15-2021 Office outpatient vi sit 25 minutes Panda Husseingriselda [facility] Start: 05-31-2021 End: 06-01-[address] PHOENIX GARNER Facility:[facility] Start: 05-02-2021 End: 05-02-2021 ambulatory Panda Fabiola Other [employer] Other Start: 05-02-2021 Telephone encounter Panda Hicks [facility] Start: 05-01-2021 End: 05-01-2021 ambulatory Panda Hicks Other [employer] Other Start: 05-01-2021 Telephone encounter Panda Hicks [facility] Start: 04-10-2021 End: 04-10-2021 ambulatory Panda Hicks Other [employer] Other Start: 04-10-2021 Telephone encounter Panda Hicks [facility] Start: 03-20-2021 Telephone encounter Panda Hicks [facility] Start: 02-23-2021 Office outpatient vi sit 15 minutes Kelsey Pop [facility] Procedures Date Procedure Procedure Detail Performing Clinician Start: 01-12-2025 ALL CBC WITH AUTO DIFF Fay Pascal [employer] Work Phone: Start: 01-12-2025 MLR HEMOGLOBIN A1C Fay Pascal [employer] Work Phone: Start: 09-10-2024 Iadna aleksandr species direct probe tq Kalin Chantel DIRECTOR OF GOVERNMENT SALES - CNM Work Phone: Start: 09-10-2024 MHPT VAGINITIS DNA PROBE Generic Externa l Data Provider Start: 08-20-2024 MHPT VAGINITIS DNA PROBE Generic Externa l Data Provider Start: 05-11-2024 Mammography Fay Chadmariferdexter [employer] Work Phone: Start: 04-21-2024 ALL THYROID STIM HORMONE Fay Chadmariferdexter N P Work Phone: Start: 03-19-2024 Plain radiography of pelvis MD Bright paez II Work Phone: Start: 03-19-2024 X-ray of right knee, four views MD Stan Mccall II Work Phone: Start: 07-31-2023 Colonoscopy Fay Naida [employer] Work Phone: Start: 06-27-2023 ALL CBC WITH AUTO DIFF Fay Naida [employer] Work Phone: Start: 05-10-2023 Mammography Fay Chadmariferdexter [employer] Work Phone: Start: 04-03-2021 Colonoscopy Fay Chadmariferdexter [employer] Work Phone: Start: 04-03-2021 Colonoscopy Jose M [...] 07-30-2033 Screening for malignant neoplasm of colon [facility] Start: 04-03-2031 Screening for malignant neoplasm of colon [facility] Start: 2030 Respiratory Syncytial Virus (RSV) or age 60 yrs+ (1 - 1-dose 75+ series) Respiratory Syncytial Virus (RSV) or age 60 yrs+ (1 - 1-dose 75+ series) [facility] Start: 01-17-2026 End: 01-17-2026 Patient encounter procedure 01/17/2026 10:30 AM EDT Office Visit [facility] [address] [place] [phone] Fay Pascal, [employer] [address] [place] [phone] [facility] Start: 01-12-2026 Medicare Annual Wellness (AWV) Medicare Annual Wellness (AWV) [facility] Start: 08-20-2025 Depression Screen Depression Screen [facility] Start: 05-11-2025 End: 01-12-2026 DXA Skeletal system Views for bone density DEXA bone density Imaging Routine Osteoporosis, postmenopausal Expected: 05/11/2025 (Approximate), Expires: 01/12/2026 [facility] Comment on above: Expected: 05/11/2025 (Approximate), Expi res: 01/12/2026 Start: 05-11-2025 End: 03-14-2026 MG Breast - bilateral Screening Bilateral screening mammogram Imaging Routine Encounter for screening mammogram for malignant neoplasm of breast Expected: 05/11/2025 (Approximate), Expires: 03/14/2026 [facility] Work Phone: Comment on above: Expected: 05/11/2025 (Approximate), Expi res: 03/14/2026 Start: 05-11-2025 Screening for malignant neoplasm of breast Mammogram [facility] Start: 04-13-2025 End: 04-13-2025 Patient encounter procedure 04/13/2025 9:40 AM EST [facility] [address] [place] [phone] Fay Pascal, DELMY [address] [place] [phone] [facility] Start: 01-12-2025 End: 01-12-2026 25-hydroxyvitamin D3 [Mass/volume] in Serum or Plasma Vitamin D 25 hydroxy Lab Routine Vitamin D deficiency Expected: 01/12/2025 (Approximate), Expires: 01/12/2026 [facility] Comment on above: Expected: 01/12/2025 (Approximate), Expi res: 01/12/2026 Start: 01-12-2025 End: 01-12-2026 CBC W Auto Differential panel - Blood CBC and differential Lab Routine Obstructive sleep apnea syndrome Hypothyroidism, adult Expected: 01/12/2025 (Approximate), Expires: 01/12/2026 [facility] Comment on above: Expected: 01/12/2025 (Approximate), Expi res: 01/12/2026 Start: 01-12-2025 End: 01-12-2026 Comprehensive metabolic 2000 panel - Serum or Plasma Comprehensive metabolic panel Lab Routine Dyslipidemia Osteoporosis, postmenopausal Vitamin D deficiency Prediabetes Hypothyroidism, adult Expected: 01/12/2025 (Approximate), Expires: 01/12/2026 [facility] Comment on above: Expected: 01/12/2025 (Approximate), Expi res: 01/12/2026 Start: 01-12-2025 End: 01-12-2027 Echocardiogram 2D complete Echocardiogram 2D complete Echocardiography Routine Heart murmur Nonrheumatic aortic valve insufficiency Expected: 01/12/2025 (Approximate), Expires: 01/12/2027 [facility] Comment on above: Expected: 01/12/2025 (Approximate), Expi res: 01/12/2027 Start: 01-12-2025 End: 01-12-2026 Hemoglobin A1c/Hemoglobin.total in Blood Hemoglobin A1c Lab Routine Prediabetes Expected: 01/12/2025 (Approximate), Expires: 01/12/2026 [facility] Comment on above: Expected: 01/12/2025 (Approximate), Expi res: 01/12/2026 Start: 01-12-2025 End: 01-12-2026 Lipid 1996 panel - Serum or Plasma Lipid panel Lab Routine Dyslipidemia Expected: 01/12/2025 (Approximate), Expires: 01/12/2026 [facility] Comment on above: Expected: 01/12/2025 (Approximate), Expi res: 01/12/2026 Start: 01-12-2025 End: 01-12-2026 Thyrotropin [Units/volume] in Serum or Plasma TSH Lab Routine Hypothyroidism, adult Expected: 01/12/2025 (Approximate), Expires: 01/12/2026 [facility] Comment on above: Expected: 01/12/2025 (Approximate), Expi res: 01/12/2026 Start: 01-12-2025 End: 01-12-2026 Thyroxine (T4) free [Mass/volume] in Serum or Plasma T4, free Lab Routine Hypothyroidism, adult Expected: 01/12/2025 (Approximate), Expires: 01/12/2026 [facility] Comment on above: Expected: 01/12/2025 (Approximate), Expi res: 01/12/2026 Start: 01-12-2025 End: 01-12-2026 Triiodothyronine (T3) Free [Mass/volume] in Serum or Plasma T3, free Lab Routine Hypothyroidism, adult Expected: 01/12/2025 (Approximate), Expires: 01/12/2026 [facility] Comment on above: Expected: 01/12/2025 (Approximate), Expi res: 01/12/2026 Start: 01-12-2025 End: 01-12-2025 Patient encounter procedure 01/12/2025 10:00 AM EDT Office Visit [facility] [address] [place] [address] Fay Pascal NP [address] [place] [address] [facility] Start: 01-06-2025 Medicare Annual Wellness (AWV) Medicare Annual Wellness (AWV) [facility] Start: 12-18-2024 Influenza vaccination Flu vaccine (Season Ended) [facility] Start: 09-29-2024 End: 09-29-2024 Patient encounter procedure 09/29/2024 9:30 AM EDT Procedure Visit [facility] [address] [place] [phone] Melyssa Dickerson, DPM [address] [place] [address] [facility] Start: 08-18-2024 Annual Wellness Visit (Medicare) Annual Wellness Visit (Medicare) [facility] Start: 07-22-2024 End: 04-23-2025 Thyrotropin [Units/volume] in Serum or Plasma TSH Lab Routine Hypothyroidism, adult ([facility]) Expected: 07/22/2024 (Approximate), Expires: 04/23/2025 [facility] Work Phone: Comment on above: Expected: 07/22/2024 (Approximate), Expi res: 04/23/2025 Start: 07-22-2024 End: 04-23-2025 Thyroxine (T4) free [Mass/volume] in Serum or Plasma T4, free Lab Routine Hypothyroidism, adult ([facility]) Expected: 07/22/2024 (Approximate), Expires: 04/23/2025 [facility] Comment on above: Expected: 07/22/2024 (Approximate), Expi res: 04/23/2025 Start: 06-22-2024 End: 06-22-2024 Patient encounter procedure 06/22/2024 9:00 AM EST Office Visit [facility] [address] [place] [address] Fay Pascal, DELMY [address] [place] [address] [facility] Start: 05-10-2024 Screening for malignant neoplasm of breast [facility] Start: 05-08-2024 End: 03-08-2025 MG Breast - bilateral Screening Bilateral screening mammogram Imaging Routine Encounter for screening mammogram for malignant neoplasm of breast Expected: 05/08/2024 (Approximate), Expires: 03/08/2025 [facility] Comment on above: Expected: 05/08/2024 (Approximate), Expi res: 03/08/2025 Start: 03-19-2024 Plain radiography of pelvis XR pelvis 1-2V [facility] Start: 03-19-2024 X-ray of right knee, four views XR knee RT 4V* [facility] Start: 03-19-2024 XR Knee - right 4 Views [facility] Start: 03-19-2024 XR Pelvis 1 or 2 Views [facility] Start: 02-19-2024 End: 02-19-2024 Patient encounter procedure [facility] Comment on above: Arrived Start: 01-19-2024 COVID-19 Vaccine ( season) COVID-19 Vaccine () [facility] Start: 01-07-2024 End: 01-06-2026 Echocardiogram 2D complete Echocardiogram 2D complete Echocardiography Routine Heart murmur Expected: 01/07/2024 (Approximate), Expires: 01/06/2026 [facility] Comment on above: Expected: 01/07/2024 (Approximate), Expi res: 01/06/2026 Start: 01-07-2024 End: 01-06-2025 Thyrotropin [Units/volume] in Serum or Plasma TSH Lab Routine Hypothyroidism, adult (CMS/HCC) Expected: 01/07/2024 (Approximate), Expires: 01/06/2025 [facility] Work Phone: Comment on above: Expected: 01/07/2024 (Approximate), Expi res: 01/06/2025 Start: 01-07-2024 End: 01-06-2025 Thyroxine (T4) free [Mass/volume] in Serum or Plasma T4, free Lab Routine Hypothyroidism, adult (CMS/HCC) Expected: 01/07/2024 (Approximate), Expires: 01/06/2025 [facility] Comment on above: Expected: 01/07/2024 (Approximate), Expi res: 01/06/2025 Start: 01-07-2024 End: 01-07-2024 Patient encounter procedure 01/07/2024 10:30 AM EDT Office Visit [facility] [address] [place] [address] Fay Pascal NP [address] [place] [address] Hypothyroidism, adult (CMS/HCC) (Primary Dx); Encounter for screening mammogram for malignant neoplasm of breast [facility] Comment on above: Hypothyroidism, adult (CMS/HCC) (Primary Dx); Encounter for screening mammogram for malignant neoplasm of breast Start: 01-04-2024 Medicare Annual Wellness (AWV) Medicare Annual Wellness (AWV) [facility] Start: 12-03-2023 Bacteria identified in Urine by Culture [facility] Start: 07-31-2023 End: 07-31-2023 Patient encounter procedure 07/31/2023 9:20 AM EDT Office Visit [facility] [address] [place] [address] Fay Pascal NP [address] [place] [address] [facility] Start: 06-27-2023 End: 06-27-2024 25-hydroxyvitamin D3 [Mass/volume] in Serum or Plasma Vitamin D 25 hydroxy Lab Routine Vitamin D deficiency Expected: 06/27/2023 (Approximate), Expires: 06/27/2024 [facility] Work Phone: Comment on above: Expected: 06/27/2023 (Approximate), Expi res: 06/27/2024 Start: 06-27-2023 End: 06-27-2024 CBC W Auto Differential panel - Blood CBC and differential Lab Routine Rectal bleeding Expected: 06/27/2023 (Approximate), Expires: 06/27/2024 [facility] Comment on above: Expected: 06/27/2023 (Approximate), Expi res: 06/27/2024 Start: 06-27-2023 End: 06-27-2024 Comprehensive metabolic 2000 panel - Serum or Plasma Comprehensive metabolic panel Lab Routine Hypothyroidism, adult (CMS/HCC) Vitamin D deficiency Rectal bleeding Expected: 06/27/2023 (Approximate), Expires: 06/27/2024 [facility] Comment on above: Expected: 06/27/2023 (Approximate), Expi res: 06/27/2024 Start: 06-27-2023 End: 06-27-2024 Erythrocyte sedimentation rate Sedimentation rate, automated Lab Routine Rectal bleeding Expected: 06/27/2023 (Approximate), Expires: 06/27/2024 [facility] Comment on above: Expected: 06/27/2023 (Approximate), Expi res: 06/27/2024 Start: 06-27-2023 End: 06-27-2024 Ferritin [Mass/volume] in Serum or Plasma Ferritin Lab Routine Rectal bleeding Expected: 06/27/2023 (Approximate), Expires: 06/27/2024 [facility] Comment on above: Expected: 06/27/2023 (Approximate), Expi res: 06/27/2024 Start: 06-27-2023 End: 06-27-2024 Iron and Iron binding capacity panel - Serum or Plasma Iron level Lab Routine Rectal bleeding Expected: 06/27/2023 (Approximate), Expires: 06/27/2024 [facility] Comment on above: Expected: 06/27/2023 (Approximate), Expi res: 06/27/2024 Start: 06-27-2023 End: 06-27-2024 Thyrotropin [Units/volume] in Serum or Plasma TSH Lab Routine Hypothyroidism, adult ([facility]) Expected: 06/27/2023 (Approximate), Expires: 06/27/2024 [facility] Comment on above: Expected: 06/27/2023 (Approximate), Expi res: 06/27/2024 Start: 06-27-2023 End: 06-27-2024 Thyroxine (T4) free [Mass/volume] in Serum or Plasma T4, free Lab Routine Hypothyroidism, adult ([facility]) Expected: 06/27/2023 (Approximate), Expires: 06/27/2024 [facility] Comment on above: Expected: 06/27/2023 (Approximate), Expi res: 06/27/2024 Start: 06-27-2023 End: 06-27-2024 Triiodothyronine (T3) Free [Mass/volume] in Serum or Plasma T3, free Lab Routine Hypothyroidism, adult ([facility]) Expected: 06/27/2023 (Approximate), Expires: 06/27/2024 [facility] Comment on above: Expected: 06/27/2023 (Approximate), Expi res: 06/27/2024 Start: 06-27-2023 End: 06-27-2023 Patient encounter procedure 06/27/2023 9:40 AM EST Office Visit [facility] [address] [place] [address] Fay Pascal NP [address] [place] [address] Hypothyroidism, adult (CMS/HCC) (Primary Dx); Vitamin D deficiency [facility] Comment on above: Hypothyroidism, adult (CMS/HCC) (Primary Dx); Vitamin D deficiency Start: 01-18-2023 Influenza vaccination Influenza Vaccine (#1) [facility] Start: 05-20-2022 ADVANCE DIRECTIVE DISCUSSION ADVANCE DIRECTIVE DISCUSSION [facility] Start: 05-20-2022 DEPRESSION ASSESSMENT DEPRESSION ASSESSMENT [facility] Start: 01-18-2022 Influenza vaccination INFLUENZA (#1) [facility] Start: 2020 BONE DENSITY BONE DENSITY [facility] Start: 2020 PNEUMOCOCCAL: 65+ (1 - PCV) PNEUMOCOCCAL: 65+ (1 - PCV) [facility] Start: 03-20-2018 Medicare Annual Wellness (AWV) Medicare Annual Wellness (AWV) [facility] Start: 2010 Screening for osteoporosis DEXA (modify frequency per FRAX score) [facility] Start: 2005 Shingles vaccine (1 of 2) Shingles vaccine (1 of 2) [facility] Start: 2005 SHINGRIX VACCINE (1 of 2) SHINGRIX VACCINE (1 of 2) [facility] Start: 2000 COLOGUARD (FIT-DNA) COLOGUARD (FIT-DNA) [facility] Start: 2000 Colonoscopy COLONOSCOPY [facility] Start: 2000 COLORECTAL CANCER SCREENING COLORECTAL CANCER SCREENING [facility] Start: [address] COLONOGRAPHY [facility] Start: 2000 DIABETES SCREEN DIABETES SCREEN [facility] Start: 2000 FECAL OCCULT BLOOD FECAL OCCULT BLOOD [facility] Start: 2000 LIPID SCREEN LIPID SCREEN [facility] Start: 2000 Screening for malignant neoplasm of colon [facility] Start: 2000 SIGMOIDOSCOPY SIGMOIDOSCOPY [facility] Start: 1995 Lipid panel Lipids [facility] Start: 1995 Mammography MAMMOGRAM [facility] Start: 1974 DTaP/Tdap/Td vaccine (1 - Tdap) DTaP/Tdap/Td vaccine (1 - Tdap) [facility] Start: 1974 Urine microalbumin profile DTAP,TDAP,TD (1 - Tdap) [facility] Start: 1973 HEPATITIS C SCREENING HEPATITIS C SCREENING [facility] Start: 1973 Hepatitis C screening Hepatitis C screen [facility] Start: 1967 Depression Screen Depression Screen [facility] Start: 01-15-1956 COVID-19 VACCINE (#1) COVID-19 VACCINE (#1) [facility] Start: 1955 Screening for malignant neoplasm of colon [facility] End: 08-20-2024 Vaginitis DNA Probe [facility] Comment on above: 1 Occurrences starting 08/20/2024 until 08/20/2024 Immunizations Immunization Date Immunization Notes Care Provider Marycarmen alanis 02-27-2022 Pneumococcal Conjuga te PCV 20 Fay Pascal [employer] Work Phone: [facility] 02-23-2021 Kenalog -40 mg Kelsey mckee Other [facility] [employer] Other 09-28-2020 Kenalog -40 mg Kelsey mckee Other [facility] [employer] Other 09-28-2020 Gel-One Kelsey dior Other [facility] [employer] Other 07-15-2014 pneumococcal conjuga te vaccine, 13 valent Fay Pascal [employer] Work Phone: [facility] 08-18-2009 pneumococcal polysaccharide vaccine, 23 valent Fay Naida [employer] Work Phone: [facility] NEGATED: Highlighted row has not occurred!07-10-2023 influenza virus vaccine, unspecified formulation Jose M SANTO [facility] [place] Payers Date Payer Category Payer Self-pay [id number] 2020 Medicare [id number] 2020 Private Health Insurance [id number] 1959 Medicare [id number] 2.1 [id number] 1959 Private Health Insurance CLI [id number] 1955 Unknown [id number] 2.16.84 [id number] 1955 Unknown [id number] 2.16.84 [id number] 1955 Unknown [id number] 2.16.84 [id number] 1955 Unknown [id number] 2.16.8 [id number] 1955 Unknown [id number] 2.16.8 [id number] 1955 Unknown [id number] 2.16.8 [id number] 1955 Unknown [id number] 2.16.8 [id number] 1955 Unknown [id number] 2.16.8 [id number] 1955 Unknown [id number] 2.16.84 [id number] 1955 Unknown [id number] 2.16.84 [id number] Unknown [id number] 2.16.8 [id number] Unknown [id number] 2.16.8 [id number] Unknown [id number] 2.16.8 [id number] Social History Date Type Detail Facility Start: 06-26-2023 End: 01-12-2025 Sex Assigned At [facility] Start: 07-30-2022 End: 06-25-2023 Tobacco smoking status MTIS Never smoked tobacco [facility] Start: 07-30-2022 End: 06-25-2023 Tobacco use and exposure Smokeless tobacco non-user [facility] Start: 07-30-2022 End: 01-12-2025 Alcohol intake Ex-drinker (finding) [facility] Start: 1955 Sex Assigned At Not on file [facility] Start: 06-26-2023 End: 01-12-2025 History of Social function [facility] Within the last year , have you been afraid of your partner or ex-partner? No [facility] Attends [employer] Not on file [facility] Are [...] To some extent [facility] (I/We) worried wheannette er (my/our) food would run out before (I/we) got money to buy more. Never true [facility] Start: 06-25-2023 Alcohol Comment coffee 1-2 cup s per day [facility] Start: 04-03-2021 Tobacco smoking stat us MTIS Ex-smoker (finding) [facility] Start: 1955 Sex Assigned At Female F [facility] Start: 08-20-2024 End: 09-10-2024 Alcoholic beverage intake Current drinker of alcohol (finding) Rowdy Cassidy [email or web address] Start: 08-20-2024 Alcohol Comment occ Rowdy junior [email or web address] Start: 08-18-2024 Sex Female (finding) Rowdy scott [email or web address] Functional Status Date Assessment Result Facility 01-12-2025 Patient Health [facility] ionnaire 2 item (PHQ-2) [Reported] [facility] 07-10-2023 Functional Status N/A General Pack alexus [place] [facility] Clinical Notes 02-23-2021 to 01-12-2025 Fay Pascal NP - 01/12/2025 11:03 AM Eddie Pascal NP - 01/12/2025 10:59 AM EDTHALEX CORONADO - 01/12/2025 10:00 AM EDJoaquin Pascal NP - 01/12/2025 10:00 AM EDTPatient [...] manages your RIVERA: documented in this encounter [facility] 01-12-2025 Instructions Fay Pascal NP - 01/12/2025 10:00 AM EDT Get labs fasting Mammogram and bone density in April 2025 Will order ultrasound of heart, I will fax order to [facility] they should call you documented in this encounter [facility] 09-29-2024 History of Present illness Narrative [...] Melyssa Dickerson DPM documented in this encounter [facility] 09-29-2024 Instructions Melyssa Dickerson DPM - 09/29/2024 9:30 AM EDT Topical care measures as noted documented in this encounter [facility] 09-23-2024 Note Subjective Patient ID: Alesha [...] (Oral) Physical Exam Exam conducted with a color room attendant present. Constitutional: Appearance: Normal appearance. She is [...] No follow-ups on file. Marva Schaefer, MS4 [facility] The above patient was seen with the medical student and the physical exam was done by myself with the student present, assisting and observing. The plan was discussed in detail with the student and the patient. [facility] 09-14-2024 Note Received referral fo r rectal bleeding, called patient to schedule an appt with Dr. Jewell. Patient states she was unaware that referral was being sent. She will call back to schedule when ready. Referral scanned in. [facility] 02-19-2024 History of Present illness Narrative Associated [...] swets- she was reading an article on [employer] about the medication causing night sweats could [...] Basal cell carcinoma 06/27/2023 Childbirth x3 Dyslipidemia ([facility]) 06/27/2023 Gastroesophageal reflux disease 06/27/2023 Hypothyroidism, adult ([facility]) 06/27/2023 Lichenification and lichen simplex chronicus 06/27/2023 Osteoarthritis 06/27/2023 Osteoporosis, 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[facility]) 06/27/2023 Prediabetes 06/27/2023 Primary osteoarthritis of [...] not wear PAP documented in this encounter [facility] 01-07-2024 History of Present illness Narrative [...] Basal cell carcinoma 06/27/2023 Childbirth x3 Dyslipidemia ([facility]) 06/27/2023 Gastroesophageal reflux disease 06/27/2023 Hypothyroidism, adult ([facility]) 06/27/2023 Lichenification and lichen simplex chronicus 06/27/2023 Osteoarthritis 06/27/2023 Osteoporosis, 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[facility]) 06/27/2023 Prediabetes 06/27/2023 Primary osteoarthritis of [...] List Items Addressed This Visit Osteoporosis, 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CMS/HCC) Relevant Medications Calcium Carb-Cholecalciferol (Calcium + Vitamin [...] yearly and prn documented in this encounter [facility] 07-10-2023 Note Chief Complaint consultation for [...] 50,000 intl units (1.25 mg) oral capsule, 52059 International_Unit= 1 cap(s), Oral, qWeek Allergies No Known Allergies No Known Medication Allergies Social History Alcohol - Denies Alcohol Use, 07/10/2023 Substance Abuse - Denies Substance Abuse, 07/10/2023 Tobacco Never (less than 100 in lifetime) Tobacco Use:. Never Smokeless Tobacco Use:., 07/10/2023 Family History Liver cancer: Brother. Primary yeimi (more content not included)... [facility] Comment on above: Result Comment: Elec tronically [...] Basal cell carcinoma 06/27/2023 Childbirth x3 Dyslipidemia ([facility]) 06/27/2023 Gastroesophageal reflux disease 06/27/2023 Hypothyroidism, adult ([facility]) 06/27/2023 Lichenification and lichen simplex chronicus 06/27/2023 Osteoarthritis 06/27/2023 Osteoporosis, 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[facility]) 06/27/2023 Prediabetes 06/27/2023 Primary osteoarthritis of [...] medication and cologuard documented in this encounter [facility] 07-30-2022 Instructions Lorraine Christine PA-C - [...] if no improvement documented in this encounter [facility] 07-30-2022 History and physical note COLORECTAL SURGERY New/Consult Alesha Bonilla 67 year old Chief Complaint: mucous drainage History of Present Illness: Alesha Bonilla is a 67 year old female coming to the [facility] office in regards to mucous drainage/leakage.Patient notes clear sticky discharge that is odorous after bowel movement and/or shower. She has a history of issues with diarrhea in the past ( 2 years ago). In which a CT scan,MRI and colonoscopy ( brought to front office supervisor to be scanned in) were completed and [...] was otherwise normal. Patient tolerated procedure well. Histologist present: Yes, Kristin Fuentes MA Diagnostic tests reviewed for today's visit: Colonoscopy Report CT imaging MRI imaging All outside imaging and records were reviewed with the patient during consultation. Assessment Assessment and Plan: Alesha Bonilla is a 67 year old female who comes to [facility] for rectal mucous/ discharge. Upon [...] which included preparing to see the patient, [id number] patient care, completing clinical documentation, obtaining and/or reviewing separately obtained history, performing a medically appropriate examination, counseling and educating the patient/family/caregiver, and ordering medications, tests, or procedures. documented in this encounter [facility] 10-10-2021 Evaluation note Encounter Date Diagnosis Assessment [...] Other 1 hour and 10 minutes spent [id number] with the patient, the majority in counseling and education [facility] Other 03-01-2022 Evaluation note* Encounter Date Diagnosis Assessment Notes Treatment Notes Treatment Clinical Notes Jul, Irritable bowel syndrome with diarrhea (ICD-10 - K58.0) Jul, GERD (gastroesophageal reflux disease) (ICD-10 - K21.9) Jul, Liver hemangioma (ICD-10 - D18.03) Jul, Other REASSURANCE REPEAT RUQ U/S IN 4-6 MONTHS (IN RECALL) [facility] Other 02-01-2022 Evaluation note* Encounter Date Diagnosis Assessment Notes Treatment Notes Treatment Clinical Notes Jun, Liver lesion (ICD-10 - K76.9) [facility] Other 01-27-2022 Evaluation note* Encounter Date Diagnosis [...] without obstruction or gangrene (ICD-10 - K43.9) [facility] Other 11-22-2021 Evaluation note* Encounter Date Diagnosis Assessment Notes Treatment Notes Treatment Clinical Notes Mar, Diarrhea (ICD-10 - R19.7) Mar, Weight loss (ICD-10 - R63.4) [facility] Other 11-01-2021 Evaluation note* Encounter Date Diagnosis Assessment Notes Treatment Notes Treatment Clinical Notes Mar, Abdominal cramping (ICD-10 - R10.9) Mar, Diarrhea (ICD-10 - R19.7) [facility] Other 10-07-2021 Evaluation note* Encounter Date Diagnosis [...] Feb, Left hip pain (ICD-10 - M25.552) [facility] Other Evaluation + Plan note No data available for this section General Surgery [place] Evaluation noteNo InformationNort [employer] Other Evaluation note* Diagnosis Rectal discharge- Primary Other symptoms involving digestive system [facility] Diagnosis Rectal bleeding- Primary Hemorrhage of rectum and anus Hypothyroidism, adult (CMS/HCC) Other specified acquired hypothyroidism Vitamin D deficiency BMI 21.0-21.9, adult Heart murmur Undiagnosed cardiac murmurs documented in this encounter [facility] HealthcareEvaluation note* Diagnosis Onset Date Resolution Status Dysuria noneactive [facility] Work Phone: Evaluation note* Diagnosis Hypothyroidism, adult (CMS/HCC)- Primary Other specified acquired hypothyroidism Heart murmur Undiagnosed cardiac murmurs Obstructive sleep apnea syndrome Obstructive sleep apnea (adult) (pediatric) documented in this encounter [facility] HealthcareEvaluation note* Diagnosis Hypothyroidism, adult ([facility])- Primary Other specified acquired hypothyroidism documented in this encounter [facility] HealthcareEvaluation noteNo assessment information availableK[facility] Work [facility]: Evaluation [facility]* Diagnosis Onset Date Resolution Status Deformity of right knee joint acute Primary osteoarthritis of right knee acute [facility] Work Phone: Evaluation note* Diagnosis Rectal bleeding- Primary Hemorrhage of rectum and anus Hypothyroidism, adult ([facility]) Other specified acquired hypothyroidism Vitamin D deficiency BMI 21.0-21.9, adult Heart murmur Undiagnosed cardiac murmurs Encounter for subsequent annual wellness visit (AWV) in Medicare patient- Primary Hypothyroidism, adult ([facility]) Other specified acquired hypothyroidism Encounter for screening mammogram for malignant neoplasm of breast Vitamin D deficiency Osteoporosis, 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[facility]) Senile osteoporosis Heart murmur Undiagnosed cardiac murmurs Obstructive sleep apnea syndrome Obstructive sleep apnea (adult) (pediatric) Hypothyroidism, adult ([facility])- Primary Other specified acquired hypothyroidism Heart murmur Undiagnosed cardiac murmurs Obstructive sleep apnea syndrome Obstructive sleep apnea (adult) (pediatric) Hypothyroidism, adult ([facility])- Primary Other specified acquired hypothyroidism documented in this encounter [facility] HealthcareEvaluation note* Diagnosis Encounter for subsequent annual wellness visit (AWV) in Medicare patient- Primary Hypothyroidism, adult ([facility]) Other specified acquired hypothyroidism Encounter for screening mammogram for malignant neoplasm of breast Vitamin D deficiency Osteoporosis, 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[facility]) Senile osteoporosis Heart murmur Undiagnosed cardiac murmurs Obstructive sleep apnea syndrome Obstructive sleep apnea (adult) (pediatric) documented in this encounter [facility] HealthcareEvaluation note* Diagnosis Rectal bleeding- Primary Hemorrhage of rectum and anus Hypothyroidism, adult ([facility]) Other specified acquired hypothyroidism Vitamin D deficiency BMI 21.0-21.9, adult Heart murmur Undiagnosed cardiac murmurs Encounter for subsequent annual wellness visit (AWV) in Medicare patient- Primary Hypothyroidism, adult ([facility]) Other specified acquired hypothyroidism Encounter for screening mammogram for malignant neoplasm of breast Vitamin D deficiency Osteoporosis, 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[facility]) Senile osteoporosis Heart murmur Undiagnosed cardiac murmurs Obstructive sleep apnea syndrome Obstructive sleep apnea (adult) (pediatric) Hypothyroidism, adult ([facility])- Primary Other specified acquired hypothyroidism Heart murmur Undiagnosed cardiac murmurs Obstructive sleep apnea syndrome Obstructive sleep apnea (adult) (pediatric) Hypothyroidism, adult ([facility])- Primary Other specified acquired hypothyroidism documented in this encounter [facility] HealthcareEvaluation note* Diagnosis Vaginal discharge Leukorrhea, not specified as infective documented in this encounter [facility] HealthEvaluation note* Diagnosis Rectal bleeding- Primary Hemorrhage of rectum and anus Hypothyroidism, adult ([facility]) Other specified acquired hypothyroidism Vitamin D deficiency BMI 21.0-21.9, adult Heart murmur Undiagnosed cardiac murmurs Encounter for subsequent annual wellness visit (AWV) in Medicare patient- Primary Hypothyroidism, adult ([facility]) Other specified acquired hypothyroidism Encounter for screening mammogram for malignant neoplasm of breast Vitamin D deficiency Osteoporosis, 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[facility]) Senile osteoporosis Heart murmur Undiagnosed cardiac murmurs Obstructive sleep apnea syndrome Obstructive sleep apnea (adult) (pediatric) Hypothyroidism, adult ([facility])- Primary Other specified acquired hypothyroidism Heart murmur Undiagnosed cardiac murmurs Obstructive sleep apnea syndrome Obstructive sleep apnea (adult) (pediatric) Hypothyroidism, adult ([facility]) Other specified acquired hypothyroidism documented in this encounter [facility] HealthcareEvaluation note* Diagnosis Rectal bleeding- Primary Hemorrhage of rectum and anus Hypothyroidism, adult ([facility]) Other specified acquired hypothyroidism Vitamin D deficiency BMI 21.0-21.9, adult Heart murmur Undiagnosed cardiac murmurs Encounter for subsequent annual wellness visit (AWV) in Medicare patient- Primary Hypothyroidism, adult ([facility]) Other specified acquired hypothyroidism Encounter for screening mammogram for malignant neoplasm of breast Vitamin D deficiency Osteoporosis, 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[facility]) Senile osteoporosis Heart murmur Undiagnosed cardiac murmurs Obstructive sleep apnea syndrome Obstructive sleep apnea (adult) (pediatric) Hypothyroidism, adult ([facility])- Primary Other specified acquired hypothyroidism Heart murmur Undiagnosed cardiac murmurs Obstructive sleep apnea syndrome Obstructive sleep apnea (adult) (pediatric) Rectal bleeding- Primary Hemorrhage of rectum and anus documented in this encounter [facility] HealthcareEvaluation note* Diagnosis Vaginal discharge Leukorrhea, not specified as infective documented in this encounter [facility] HealthEvaluation note* Diagnosis Rectal bleeding- Primary Hemorrhage of rectum and anus Hypothyroidism, adult ([facility]) Other specified acquired hypothyroidism Vitamin D deficiency BMI 21.0-21.9, adult Heart murmur Undiagnosed cardiac murmurs Encounter for subsequent annual wellness visit (AWV) in Medicare patient- Primary Hypothyroidism, adult ([facility]) Other specified acquired hypothyroidism Encounter for screening mammogram for malignant neoplasm of breast Vitamin D deficiency Osteoporosis, 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[facility]) Senile osteoporosis Heart murmur Undiagnosed cardiac murmurs Obstructive sleep apnea syndrome Obstructive sleep apnea (adult) (pediatric) Hypothyroidism, adult ([facility])- Primary Other specified acquired hypothyroidism Heart murmur Undiagnosed cardiac murmurs Obstructive sleep apnea syndrome Obstructive sleep apnea (adult) (pediatric) Dermatophytosis of nail- Primary Dystrophic nail Other specified disease of nail Pain around toenail, left foot Pain around toenail, right foot Difficulty walking Difficulty in walking documented in this encounter [facility] HealthcareEvaluation note* Diagnosis Rectal bleeding- Primary Hemorrhage [...] specified acquired hypothyroidism documented in this encounter [facility] HealthcareEvaluation note* Diagnosis Rectal bleeding- Primary Hemorrhage [...] aortic valve insufficiency documented in this encounter [facility] general Narrative - Reported* Type Description Date Medical History high cholesterol Medical History Hypothyroidism Surgical History meniscus repair Surgical History rotator cuff repair Surgical History lipoma removed from right shoul neela Surgical History skin cancer removal from lip Hospitalization History see above [facility] Other History general Narrative - Reported* Type Description Date Medical History high cholesterol Medical History Hypothyroidism Medical History obstructive sleep apnea Surgical History meniscus repair Surgical History rotator cuff repair Surgical History lipoma removed from right shoul neela Surgical History skin cancer removal from lip Hospitalization History see above [facility] Other Hospital Discharge instructions No data available for this section General Surgery [place] Progress note No data available for this section General Surgery [facility] Reason for referral (narrative)* Consultation (Routine) - Pending Review Specialty Diagnoses / Procedures Referred By Seb díaz Referred To Contact General Surgery Diagnoses Rectal bleeding Procedures NC OFFICE/OUTPATIENT NEW HIGH MDM 60 MINUTES Fay Pascal NP [address] [place] [address] Jose M Santo MD [address] [place], [place] [address] [place] [address] Referral ID Status Reason Start Date Expiration Date Visits Requested Visits Authorized [id number] Pending Review Specialty Services Required 06/27/2023 12/24/2023 [...] Heart murmur Procedures Echocardiogram 2D complete Fay Pascal, DELMY [address] [place] [address] [facility] [address] [place] [address] Referral ID Status Reason Start Date Expiration Date Visits Requested Visits Authorized [id number] Incomplete Perform Procedure 01/07/2024 07/05/2024 1 1 [...] and content) DATE CREATED AUTHOR 05/17/2022 [facility] DATE CREATED AUTHOR AUTHOR'S ORGANIZ ATION 07/31/2022 [facility] DATE CREATED AUTHOR AUTHOR'S ORGANIZ ATION 08/06/2023 [facility] DATE CREATED AUTHOR AUTHOR'S ORGANIZ ATION 03/25/2024 [facility] DATE CREATED AUTHOR AUTHOR'S ORGANIZ ATION 09/11/2024 [facility] DATE CREATED AUTHOR AUTHOR'S ORGANIZ ATION 09/28/2024 [facility] DATE CREATED AUTHOR AUTHOR'S ORGANIZ ATION 01/13/2025 [facility] EPIC Source Comments (unrecognize d section and content) In the event this informatio n is protected by the Federal Confidentiality of Alcohol and Drug Abuse Patient Records regulations: The Federal rules restrict any use of the information to criminally investigate or prosecute any alcohol or drug abuse patient.[facility] Care Teams (unrecognized sec tion and content) [...] March 19, 2024 End: March 19, 2024 Water Treatment Plant Operator Relationship Specialty Start Date End Date Phoenix Garner [address] [place], [place] [id number] PCP - General Family Medicine 07/26/22 Water Treatment Plant Operator Relationship Specialty Start Date End Date Phoenix Garner MD [address] [place] [address] PCP - General Family Medicine 06/18/23 Water Treatment Plant Operator Relationship Specialty Start Date End Date Phoenix Garner MD [address] [place] [phone] PCP - General Family Medicine 06/18/23 Water Treatment Plant Operator Relationship Specialty Start Date End Date Phoenix Garner MD [address] [place] [address] PCP - General Family Medicine 06/18/23 Team [...] December 03, 2023 End: December 03, 2023 Water Treatment Plant Operator Relationship Specialty Start Date End Date Phoenix Garner MD [address] [place] [address] PCP - General Family Medicine 06/18/23 Water Treatment Plant Operator Relationship Specialty Start Date End Date Phoenix Garner MD [address] [place] [address] PCP - General Family Medicine 06/18/23 Water Treatment Plant Operator Relationship Specialty Start Date End Date Phoenix Garner MD [address] [place] [address] PCP - General Family Medicine 06/18/23 Team Status: Active Member Role Status Dates Bright Mccall II, MD Attending Provider Active Start: March 19, 2024 Water Treatment Plant Operator Relationship Specialty Start Date End Date Phoenix Garner MD [address] [place] [address] PCP - General Family Medicine 06/18/23 Water Treatment Plant Operator Relationship Specialty Start Date End Date Phoenix Garner MD [address] [place] [address] PCP - General Family Medicine 06/18/23 Water Treatment Plant Operator Relationship Specialty Start Date End Date Phoenix Garner MD [address] [place] [address] PCP - General Family Medicine 06/18/23 Water Treatment Plant Operator Relationship Specialty Start Date End Date Phoenix Garner MD [address] [place] [address] PCP - General Family Medicine 06/18/23 Water Treatment Plant Operator Relationship Specialty Start Date End Date Phoenix Garner MD [address] [place] [address] PCP - General Family Medicine 06/18/23 Water Treatment Plant Operator Relationship Specialty Start Date End Date Fay Pascal, DIRECTOR OF GOVERNMENT SALES - SUPER[employer]OR [employer] [address] [place] [address] PCP - General Nurse Practitioner 08/18/24 Water Treatment Plant Operator Relationship Specialty Start Date End Date Phoenix Garner MD [address] [place] [address] PCP - General Family Medicine 06/18/23 Phoenix Garner MD [address] [place] [address] PCP - ACO Reach 06/26/24 Water Treatment Plant Operator Relationship Specialty Start Date End Date Phoenix Garner MD [address] [place] [address] PCP - General Family Medicine 06/18/23 Phoenix Garner MD [address] [place] [address] PCP - ACO Reach 06/26/24 Water Treatment Plant Operator Relationship Specialty Start Date End Date Phoenix Garner MD [address] [place] [address] PCP - General Family Medicine 06/18/23 Phoenix Garner MD [address] [place] [address] PCP - ACO Reach 06/26/24 Water Treatment Plant Operator Relationship Specialty Start Date End Date Phoenix Garner MD [address] [place] [address] PCP - General Family Medicine 06/18/23 Phoenix Garner MD [address] [place] [address] PCP - ACO Reach 06/26/24 Water Treatment Plant Operator Relationship Specialty Start Date End Date Fay Pascal APRN - SUPERVISOR [employer] [address] [place] [address] PCP - General Nurse Practitioner 08/18/24 Water Treatment Plant Operator Relationship Specialty Start Date End Date Phoenix Garner MD [address] [place] [address] PCP - General Family Medicine 06/18/23 Phoenix Garner MD [address] [place] [address] PCP - ACO Reach 06/26/24 Fay Pascal NP [address] [place] [address] Nurse Practitioner Family Medicine 09/29/24 Water Treatment Plant Operator Relationship Specialty Start Date End Date Phoenix Garner MD [address] [place] [address] PCP - General Family Medicine 06/18/23 Phoenix Garner MD [address] [place] [address] PCP - ACO Reach 06/26/24 Fay Pascal NP [address] [place] [address] Nurse Practitioner Family Medicine 09/29/24 Water Treatment Plant Operator Relationship Specialty Start Date End Date Phoenix Garner MD [address] [place] [address] PCP - General Family Medicine 06/18/23 Phoenix Garner MD [address] [place] [address] PCP - ACO Reach 06/26/24 Fay Pascal NP [address] [place] [address] Nurse Practitioner Family Medicine 09/29/24 Water Treatment Plant Operator Relationship Specialty Start Date End Date Phoenix Garner MD [address] [place] [address] PCP - General Family Medicine 06/18/23 Phoenix Garner MD [address] [place] [address] PCP - ACO Reach 06/26/24 Fay Pascal NP [address] [place] [address] Nurse Practitioner Family Medicine 09/29/24 Goals [...] BE BASED ON THE PRIMARY CLINICAL RECORDS. [facility]. provides no warranty or guarantee of the accuracy or completeness of information in this document.
== END 2025-01-26 08:49 | disposition home or self-care (01) ==
LOC: CARD 08:48
PROVIDERS: PCP Nurse Practitioner; Visit Provider Nurse Practitioner
DX: R01.1 Cardiac murmur, unspecified (principal); I35.1 Nonrheumatic aortic (valve) insufficiency
CPT/HCPCS: 93306

== ENCOUNTER 2025-03-03 12:25 | Outpatient (OUT) | payer MEDICARE, SELFPAY ==
--- OUTSIDE RECORDS SUMMARY | 2025-03-03 12:30 | XMS_ITS | Clinical Summary ---
Author Organization [facility] Address [address] [address] Care Team Providers Care Social Security Specialist Name Role Phone Fay Pascal MD Primary Care Provider Allergies No known active allergies Medications levothyroxine (Synthroid, Levoxyl) 75 mcg tablet Take 75 mcg by mouth before breakfast. Active calcium citrate-vitamin D2 250 mg-2.5 mcg (100 unit) tablet Take 1 tablet by mouth two times daily. Active calcium 500 mg calcium (1,250 mg) tablet Take 1 tablet by mouth with breakfast and with evening meal. Active Active Problems Problem Noted Date Diagnosed Date Nonrheumatic aortic valve insufficiency 01/13/20 25 Diverticulosis 01/07/2024 Encounter for screening mamm ogram for malignant neoplasm of breast 01/07/2024 Hemorrhoid 01/07/2024 History of colon polyps 01/07/2024 IBS (irritable bowel syndrome) 01/07/2024 Lactose intolerance 01/07/2024 Obstructive sleep apnea syndrome 01/07/2024 Abdominal pain 01/07/2024 Lesion of liver 07/15/2023 BMI 21.0-21.9, adult 06/27/2023 Heart murmur 06/27/2023 Overview (03/02/2025): ECHO: 01/2024 mild regurg TV and MV, aortic mild-mod Hypothyroidism, adult 06/27/2023 Lichenification and lichen simplex chronicus 12/2023 Osteoarthritis 06/27/2023 Osteoporosis, postmenopausal 06/27/2023 Primary osteoarthritis of right knee 06/27/2023 Rectal bleeding 06/27/2023 Overview (03/02/2025): Colonoscopy 07/31/23: mild diverticulosis Basal cell carcinoma 06/27/2023 Dyslipidemia 10/25/2021 Prediabetes 10/25/2021 Vitamin D deficiency 06/02/2021 Encounters Date Type Department Care Team Description 03/03/2025 11:40 AM EDT Office Visit [facility] [address] [place] [address] Kaveh Da Silva MD Nonrheumatic mitral valve regurgitation (Primary Dx); Palpitations; Nonrheumatic aortic valve insufficiency 03/03/2025 Orders Only [facility] [address] [place] [address] Jaelyn Wahl MA Nonrheumatic mitral valve regurgitation (Primary Dx) 03/02/2025 Orders Only [facility] [address] [place] [address] Provider, MD Stephanie from Last 3 Months Family History Medical History Relation Name Comments Liver disease Brother 1 Liver disease Brother 2 Liver disease Brother 3 Lung cancer Father Hypertension Mother pacemaker Sister 2 Relation Name Status Comments Brother 1 Brother 2 Brother 3 Father Mother Alive Sister 1 Alive Sister 2 Alive Sister 3 Alive Social History Tobacco Use Types Packs/Day Years Used Date Smoking Tobacco: Never Smokeless Tobacco: Never Tobacco Cessation:Counseling Given: Not Answered Alcohol Use Standard Drinks/Week Comments Not Currently 0 (1 standard drink = 0.6 oz pur e alcohol) PHQ-2 Answer Date Recorded Patient Health Questionnaire-2 Score 0 09/23/2024 Comments Unknown Sex and Gender Information Value Date Recorded Sex Assigned at Female 02/26/2025 11:21 AM EDT Legal Sex Female 2:50 PM EST Gender Identity Female 02/26/2025 11:21 AM EDT Sexual Orientation Heterosexual or Straight 02/17 11:21 AM EDT Last Filed Vital Signs Vital Sign Reading Time Taken Comments Blood Pressure 94/62 03/03/2025 11:31 AM EDT Pulse 72 03/03/2025 11:31 AM EDT Temperature 36.6 C (97.9 F) 09/23/2024 8:51 AM EDT Respiratory Rate - - Oxygen Saturation 99% 03/03/2025 11:31 AM EDT Inhaled Oxygen Concentration - - Weight 63 kg (139 lb) 03/03/2025 11:31 AM EDT Height 167.6 cm (5' 6 ) 03/03/2025 11:31 AM EDT Body Mass Index 22.44 03/03/2025 11:31 AM EDT Plan of Treatment Health Maintenance Due Date Last Done Comments CT Colonography 1955 Diabetes: Hemoglobin A1C 1955 FIT-DNA 1955 FIT 1955 FOBT 1955 Medicare Annual Wellness (AWV) 1955 Sigmoidoscopy 1955 Adult Tetanus 1977 Zoster Vaccines (1 of 2) 2005 Fall Risk Screening 2020 Mammogram 05/10/2024 05/10/2022 COVID-19 Vaccine (1 - 2023-2 5 season) 2025 Influenza Vaccine (#1) [...] on patient's age to complete this topic Procedures Procedure Name Priority Date/Time Associated Diagnosis Comments ECG 12 LEAD UNIT PERFORMED Routine 03/03/2025 12:03 PM EDT Palpitations from Last 3 Months Results * ECG 12 lead unit performed (03/03/2025 12:03 PM EDT) Kaveh Da Silva MD ECG ORDERABLES Final Resu lt from Last 3 Months Insurance MEDICARE AETNA Care Teams Social Security Specialist Relationship Specialty Start Date End Date Fay Pascal MD [address] [place] [address] PCP - General Nurse Practitioner 03/02/25
--- OUTSIDE RECORDS SUMMARY | 2025-03-03 12:30 | XMS_ITS | Encounter Summary ---
Author Organization [facility] Address [address] [place] [address] Care Team Providers Care Ground Crew Supervisor Name Role Phone Phoenix Gannon MD Primary Care Provider [phone] Phoenix Gannon MD Unavailable Fay Pascal JUNIOR SYSTEMS ADMINISTRATOR Unavailable [phone] Reason for Visit * Reason Comments Med Refill Encounter Details Date Type Department Care Team (Late Contact Info) Description 04/21/2024 Refill [facility] [address] [place] [address] Fay Pascal, JUNIOR SYSTEMS ADMINISTRATOR [address] [facility] [address] [address] Hypothyroidism, adult Social History Tobacco Use Types [...] or ex-partner? No 06/26/2023 Social Connection and Isolation Panel Answer Date Recorded In a typical week, how many times do you talk on the phone with family, friends, or neighbors? More than three times a week 06/26/2023 How often do you get togethe r with friends or relatives? More than three times a week 06/26/2023 Attends Spiritism Services Not on file 06/26 Do you belong to any clubs o r organizations such as islam groups, unions, fraternal or athletic groups, or [...] Recorded Patient Health Questionnaire-2 Score 0 01/07/2024 [facility] - Occupational Stress Questionnaire Answer [...] place to sleep or slept in a long term (including now)? No 06/26/2023 Comments Unknown Sex [...] documented as of this encounter Care Teams Ground Crew Supervisor Relationship Specialty Start Date End Date Phoenix Gannon MD PCP - General Family Medicine 06/18/23 Phoenix Gannon MD [address] [place] [address] PCP - ACO Reach 06/26/24 Fay Pascal NP [address] [place] [address] Nurse Practitioner Family Medicine 09/29/24 documented as of this encounter
--- OUTSIDE RECORDS SUMMARY | 2025-03-03 12:30 | XMS_ITS | Clinical Summary ---
Author Organization [facility] Address [address] [place] [address] Care Team Providers Care Eyewear Manufacturing Tech Name Role Phone Phoenix Gannon MD Primary Care Provider [phone] Allergies No known active allergies Medications LEVOTHYROXINE SODIUM (LEVOTHYROXINE ORAL) Take by mouth. Active CALCIUM CARBONATE/VITAMI N D3 (CALCIUM + D ORAL) Take by mouth. Active CALCIUM CARBONATE/VITAMI N D3 (VITAMIN D-3 ORAL) Take by mouth. Active Social History Tobacco Use Types Packs/Day Years Used Date Smoking Tobacco: Never Smokeless Tobacco: Never Tobacco Cessation:Counseling Given: Not Answered Alcohol Use Standard Drinks/Week Comments Not Currently 0 (1 standard drink = 0.6 oz pur e alcohol) Area Deprivation Index Answer Date Rj rded National Score (1-100), lowe r number is lower risk 71 07/30/2022 State Score (1-10), lower number is lower risk N ot on file 07/30/2022 Data from: https://www.neighborhoodatlas.medicine.[facility].edu/ . Last address used for calculation [address] [place] [address] 07/30/2022 Comments Unknown Sex and Gender Information Value Date Recorded Sex Assigned at Not on file Legal Sex Female 10:02 AM EST Gender Identity Not on file Sexual Orientation Not on file Last Filed Vital Signs Vital Sign Reading Time Taken Comments Blood Pressure 109/59 07/30/2022 9:36 AM EDT Pulse 65 07/30/2022 9:36 AM EDT Temperature 36.6 C (97.8 F) 07/30/2022 9:36 AM EDT Respiratory Rate - - Oxygen Saturation 98% 07/30/2022 9:36 AM EDT Inhaled Oxygen Concentration - - Weight 65.8 kg (145 lb) 07/30/2022 9:36 AM EDT Height 167.6 cm (5' 6 ) 07/30/2022 9:36 AM EDT Body Mass Index 23.4 07/30/2022 9:36 AM EDT Plan of Treatment Health Maintenance Due Date Last Done Comments Anxiety Screening 1973 Depression Screening 1973 Hepatitis C Screening 1973 DTaP,Tdap,Td Vaccine (1 - Tdap) [address] Colonography 2000 Cologuard (FIT-DNA) 2000 Colonoscopy 2000 Colorectal Cancer Screening 2000 Fecal Occult Blood 2000 Lipid Screening 2000 Sigmoidoscopy 2000 Shingrix Vaccine (1 of 2) 2005 Medicare Annual Wellness Visit 06/20/2020 Bone Density Screening 2020 Diabetes Screening 02/24/2024 02/23/2021 Advance Directive Discussion 05/20/2024 Covid-19 Vaccine ( - 2024- season) 2025 Influenza Vaccine (#1) 2025 RSV Vaccine (1 - 1-dose 75+ series) 2030 Pneumococcal Vaccine: 50+ Completed 2021, 07/15/2014, 08/18/2009 Insurance MEDICARE Member Subscriber Plan / Payer (Ef fective 2020-Present) Name:Alesha Barnes Member ID:[id number] Relation to Subscriber:Self Name:Alesha Barnes Subscriber ID:[id number] Payer ID:Not on file Group ID:Not on file Type:Medicare Address: [facility] [place] [id number] AETNA SUPPLEMENT Care Teams Eyewear Manufacturing Tech Relationship Specialty Start Date End Date Phoenix Gannon MD [address] [place] [address] PCP - General Family Medicine 07/26/22
--- OUTSIDE RECORDS SUMMARY | 2025-03-03 12:30 | XMS_ITS | Encounter Summary ---
Author Organization [facility] Address [address] [place] [address] Care Team Providers Care Creative Services Producer Name Role Phone Fay Pascal MD Primary Care Provider [phone] Encounter Details Date Type Department Care Team (Late st Contact Info) Description 03/02/2025 Orders Only [facility] [address] [place] [address] ProviderStephanie MD [address] [place], [place] [id number] Social History Tobacco Use Types Packs/Day Years [...] Heterosexual or Straight 02/17 11:21 AM EDT documented as of this encounter Functional Status * BP Answer Date of Assessment Author 94/62 03/03/2025 11:31 AM EDT Yanet Mathew am, [place] * Pulse Answer Date of Assessment Author 72 03/03/2025 11:31 AM EDT Yanet Mathew am, [place] * Patient Position Answer Date of Assessment Author Sitting 03/03/2025 11:31 AM EDT Yanet Mathew am, [place] * BP Answer Date of Assessment Author 94/62 03/03/2025 11:31 AM EDT Yanet Mathew am, [place] * Pulse Answer Date of Assessment Author 72 03/03/2025 11:31 AM EDT Yanet Mathew am, [place] * SpO2 Answer Date of Assessment Author 99 03/03/2025 11:31 AM EDT Yanet Mathew am, [place] * BP Location Answer Date of Assessment Author Left arm 03/03/2025 11:31 AM EDT Yanet Mathew am, [place] * Patient Position Answer Date of Assessment Author Sitting 03/03/2025 11:31 AM EDT Yanet Mathew am, [place] documented as of this encounter Plan of Treatment Not on file documented as of this encounter Procedures Procedure Name Priority Date/Time Associated Diagnosis Comments COMPLETE TRANSTHORACIC ECHO (TTE) W/WO IMAGING AGENT, STRAIN, 3D, BUBBLE STUDY Routine 01/15/2024 12:00 PM EDT documented in this encounter Results * Complete Echo (TTE) w/wo Imaging Agent, Strain, 3D, Bubble Study (01/15/2024 12:00 PM EDT) Anatomical Region Laterality Modality Ultrasound us Historical Provider MD MARX ECHO PROCEDURES Final Result documented in this encounter Visit Diagnoses Not on filedocumented in this encounter Care Teams Creative Services Producer Relationship Specialty Start Date End Date Fay Pascal MD [address] [place] [address] PCP - General Nurse Practitioner 03/02/25 documented as of this encounter
--- OUTSIDE RECORDS SUMMARY | 2025-03-03 12:30 | XMS_ITS | Encounter Summary ---
Author Organization [facility] Address [address] [place] [address] Care Team Providers Care Tax Agent Name Role Phone Phoenix Gannon MD Primary Care Provider [phone] Phoenix Gannon MD Primary Care Provider [phone] Phoenix Gannon MD Unavailable Fay Pascal NP Unavailable [phone] Encounter Details Date Type Department Care Team (Late st Contact Info) Description 05/10/2023 Clinisync Result Encounter [facility] External Department Unsolicited Phoenix Gannon MD [address] [place] [address] Social History Tobacco Use Types Packs/Day Years [...] EST Narrative 05/10/2023 2:50 PM EST [place] [id number] Mammography Report Signed Patient: Alesha Bonilla MR#: [id number] : 1955 Acct:[id number] Age/Sex: 67 / F ADM Date: 05/10/23 Loc: MAMMO Attending Dr: Phoenix Gannon M.D. Ordering Physician: Phoenix Gannon M.D. Results: Date of Service: 05/10/23 Follow Up: Procedure(s): MM tomosynthesis screening BI Accession Number(s): [id number] cc: Phoenix Gannon M.D. Patient Name: ALESHA BONILLA MR#: [id number] : 1955 Exam Date: 05/10/2023 Ordering Doctor: [...] lung cancer at age 74. LOCATION: [facility] BREAST COMPOSITION: Scattered areas fibroglandular density. FINDINGS: [...] By: Bhavin Johnson M.D. Signed By: 05/10/23 2564 DD/ 1449 TD/TT: Dental Aide: Procedure Note Radiology, Radiologist, MD - 05/10/2023 [place] [address] Mammography Report Signed Patient: Alesha Bonilla AMR#: [id number] : 6Acct:[id number] Age/Sex: 67 / FADM Date: 05/10/23 Loc: MAMMO Attending Dr: Phoenix Gannon M.D. Ordering Physician: Phoenix Gannon M.D.Results: Date of Service: 05/10/23Follow Up: Procedure(s): MM tomosynthesis screening BI Accession Number(s): [id number] cc: Phoenix Gannon M.D. Patient Name: ALESHA BONILLA MR#: [id number] : 1955 Exam Date: 05/10/2023 Ordering Doctor: [...] withlung cancer at age 74. LOCATION: [facility] BREAST COMPOSITION: Scattered areas fibroglandular density. FINDINGS: [...] M.D. Signed By:05/10/23 1450 DD/ 1449 TD/TT: Dental Aide: Phoenix Gannon MD [facility] Final Result documented in this encounter Visit Diagnoses Not on filedocumented in this encounter Care Teams Tax Agent Relationship Specialty Start Date End Date Phoenix Gannon MD PCP - General Family Medicine 05/20/22 06/17/23 Phoenix Gannon MD PCP - General Family Medicine 06/18/23 Phoenix Gannon MD [address] [place] [address] PCP - ACO Reach 06/26/24 Fay Pascal NP [address] [place] [address] Nurse Practitioner Family Medicine 09/29/24 documented as of this encounter
--- OUTSIDE RECORDS SUMMARY | 2025-03-03 12:30 | XMS_ITS | Encounter Summary ---
Author Organization [facility] Address [address] [place] [address] Care Team Providers Care Conference Services Coordinator Name Role Phone Fay Pascal MD Primary Care Provider [phone] Reason for Referral * Imaging (Routine) - Pending Review Specialty Diagnoses / Procedures Referred By Contac t Referred To Contact Cardiology Diagnoses Nonrheumatic mitral valve regurgitation Procedures Transesophageal echo (AGA) Kaveh Da Silva MD [address] [place] [address] Phone: tel: fax: Referral ID Status Reason Start Date Expiration Date Visits Requested Visits Authorized [id number] Pending Review Perform Procedure 03/03/2026 1 1 Encounter Details Date Type Department Care Team (Late st Contact Info) Description 03/03/2025 Orders Only [facility] [address] [place] [address] [place], [place] Nonrheumatic mitral valve regurgitation (Primary Dx) Social History Tobacco Use Types Packs/Day Years [...] as of this encounter Plan of Treatment Scheduled Orders Name Type Priority Associated Diagnoses Orde r Schedule Sedimentation rate Lab Routine Nonrheumatic mitral valve regurgitation Expected: 03/03/2025 (Approximate), Expires: 03/03/2026 High sensitivity CRP Lab Routine Nonrheumatic mitral valve regurgitation Expected: 03/03/2025 (Approximate), Expires: 03/03/2026 Rheumatoid factor Lab Routine Nonrheumatic mitral valve regurgitation Expected: 03/03/2025 (Approximate), Expires: 03/03/2026 Transesophageal echo (AGA) Echocardiography Routine Nonrheumatic mitral valve regurgitation Expected: 03/03/2025 (Approximate), Expires: 03/03/2027 documented as of this encounter Visit Diagnoses Diagnosis Nonrheumatic mitral valve regurgitation- Primary documented in this encounter Care Teams Conference Services Coordinator Relationship Specialty Start Date End Date Fay Pascal MD [facility] [place] [address] [address] PCP - General Nurse Practitioner 03/02/25 documented as of this encounter
--- OUTSIDE RECORDS SUMMARY | 2025-03-03 12:30 | XMS_ITS | Clinical Summary ---
Author Organization [facility] Address [address] [facility] [facility] [address], [address] [place] [address] Care Team Providers Care Devil Dog Name Role Phone Fay Pascal APRN, NP [...] drink = 0.6 oz pur e alcohol) [facility] Utilities Answer Date Recorded In the past [...] any time in the past 12 m [facility], were you homeless or living in a mcc (including now)? No 08/20/2024 Food Insecurity Answer [...] 2000 FIT/FOBT: Average risk 2000 Fecal-DNA (Cologuard): Gould ge risk 2000 Sigmoidoscopy/CT colonography 2000 Shingles vaccine (1 of 2) 2005 DEXA (modify frequency per FRAX score) 2010 Breast cancer screen 05/10/2024 05/10/2022, 03/29/2017 Annual Wellness Visit (Medicare) 08/18/2024 Flu vaccine (#1) 12/18/2024 COVID-19 Vaccine ( - 2023-2 5 season) 2025 Depression Screen 08/20/2025 08/20/2024, 08/20/2024 Respiratory Syncytial [...] MEDICARE AETNA SENIOR MEDICARE SUPP Care Teams Devil Dog Relationship Specialty Start Date End Date Fay Pascal, RADIATOR TESTER - NURSING PROGRAM DIRECTOR [facility] [place] [address] PCP - General Nurse Practitioner 08/18/24
--- OUTSIDE RECORDS SUMMARY | 2025-03-03 12:30 | XMS_ITS | Encounter Summary ---
Author Organization [facility] Address [address] [place] [address] Care Team Providers Care Methodologist Name Role Phone Phoenix Gannon MD Primary Care Provider [phone] Phoenix Gannon MD Unavailable Fay Pascal BRIMMING MACHINE OPERATOR Unavailable [phone] Encounter Details Date Type Department Care Team (Late st Contact Info) Description 07/04/2023 [facility] [address] [place] [address] Fay Pascal, DELMY [address] [facility] [place] [address] Social History Tobacco Use Types Packs/Day Years [...] than three times a week 06/26/2023 Attends Christian Services Not on file 06/26 Do you belong to any clubs o r organizations such as episcopal groups, unions, fraternal or athletic groups, or [...] Recorded Patient Health Questionnaire-2 Score 0 06/27/2023 [facility] - [...] on filedocumented in this encounter Care Teams Methodologist Relationship Specialty Start Date End Date Phoenix Gannon MD PCP - General Family Medicine 06/18/23 Phoenix Gannon MD [address] [place] [address] PCP - ACO Reach 06/26/24 Fay Pascal NP [address] [place] [address] Nurse Practitioner Family Medicine 09/29/24 documented as of this encounter
--- OUTSIDE RECORDS SUMMARY | 2025-03-03 12:30 | XMS_ITS | Clinical Summary ---
Author Organization [facility] Address [address] [place] [address] Care Team Providers Care Diesel Engine Mechanic Apprentice Name Role Phone Phoenix Gannon MD Primary Care Provider [phone] Phoenix Gannon MD Unavailable Fay Pascal ELEVATED WORK PLATFORM OPERATOR Unavailable [phone] Allergies No known active allergies Medications Calcium Citrate-Vitamin D (Yovanny-Citrate Plus Vitamin D) 250-2.5 MG-MCG tablet Take 1 tablet by mouth in the morning and 1 tablet in the evening. Active levothyroxine (Synthroid, Levoxyl) 75 MCG tabletIndicatio ns:Hypothyroidi sm, adult Take 1 tablet (75 mcg) by mouth in the morning. Take before meals. 90 tablet 01/12/2025 Active Active Problems Problem Noted Date Diagnosed [...] Will provide order Encounter for subsequent [facility] wellness visit (AWV) in Medicare patient 01/07/2024 [...] 10:00 AM EDT Office Visit [facility] [address] [place] [address] Fay Pascal NP Encounter for subsequent annual wellness visit (AWV) in Medicare patient (Primary Dx); Obstructive sleep apnea syndrome; Dyslipidemia ; Encounter for screening mammogram for malignant neoplasm of breast; Osteoporosis, postmenopausal ; Vitamin D deficiency; Prediabetes; Hypothyroidism, adult ; Heart murmur; Nonrheumatic aortic valve insufficiency 01/12/2025 Clinisync Result Encounter [facility] External Department Unsolicited Fay Pascal NP 12/08/2024 Refill [facility] [address] [place] [address] Fay Pascal NP Hypothyroidism, adult from Last [...] than three times a week 06/26/2023 Attends Shinto Services Not on file 06/26 Do you belong to any clubs o r organizations such as adventist groups, unions, fraternal or athletic groups, or [...] Recorded Patient Health Questionnaire-2 Score 0 01/12/2025 [facility] - Occupational Stress [...] place to sleep or slept in a senior care (including now)? No 06/26/2023 Comments Unknown Sex [...] PM EDT [facility] CMP (CMP) (FOR REMOTE CRITICAL ACCESS [facility]OSPITAL USE) Routine 01/12/2025 12:03 PM EDT MLR HEMOGLOBIN A1C Routine 01/12/2025 12 :03 PM EDT ALL CBC WITH AUTO DIFF Routine 12:03 PM EDT MM TOMOSYNTHESIS SCREENING BI 05/11/2024 2:21 PM EST from Last 3 Months or Most Recently Relevant to Health Maintenance Results * [facility] VITAMIN D 25 [place] (01/12/2025 12:03 PM EDT) Pathologist [facility] VITAMIN D 25.8 ng/mL [facility] Comment: <20 ng/mL Vit D deficient 20-<30 ng/mL Vit D insufficient 30-100 ng/mL Vit D sufficient >100 ng/mL Potential Toxicity 01/12/2025 12:0 3 PM EDT 01/12/2025 12:05 PM EDT Narrative CLINISYNC - 01/12/2025 2:35 PM EDT Fay Pascal NP CLINISYNC Final Result Performing Organization Address [facility]/State/ZIP Co de Phone Number [facility] * MLR HEMOGLOBIN A1C (01/12/2025 12:03 PM EDT) GLYCOHEMOGLOBIN A1C 5.1 4.5 - 6.2 % [facility] Comment: ADA RECOMMENDED LIMIT 4.0 - 6.0 ADA THERAPEUTIC TARGET < 7.0 ACTION SUGGESTED > 7.0 ESTIMATED AVERAGE GLUCOSE 100 mg/dL TB 01/12/2025 12:0 3 PM EDT 01/12/2025 12:05 PM EDT Narrative CLINISYNC - 01/12/2025 12:32 PM EDT Fay Aichholz ELEVATED WORK PLATFORM OPERATOR CLINISYNC Final Result CLINISYNC TB * [facility] CMP (CMP) (FOR REMOTE CRITICAL ACCESS [facility]OSPITAL USE) (01/12/2025 12:03 PM EDT) SODIUM 142 136 - 145 mmol/L [facility] POTASSIUM 3.8 3.5 - 5.1 mmol/L [facility] CHLORIDE 105 98 - 107 mmol/L [facility] CARBON DIOXIDE 30.5 21.0 - 32.0 mmol/L [facility] ANION GAP 10.3 [facility] GLUCOSE 89 74 - 106 mg/dL [facility] BLOOD UREA NITROGEN 12.0 7.0 - 18.0 mg/dL [facility] CREATININE 0.59 0.55 - 1.02 mg/dL TBH TBH EGFR-AF CROATIAN >60 >=60 mL/min/1. 73m 2 TBH TBH EGFR-NON AF CROATIAN >60 >=60 mL/min/1. 73m 2 [facility] BUN [...] 01/12/2025 1:37 PM EDT us Fay Pascal ELEVATED WORK PLATFORM OPERATOR CLINISYNC Final Result CLINISYAR TB * ALL THYROXINE (T4) FREE (01/12/2025 12:03 PM EDT) FREE T4 1.06 0.76 - 1.46 ng/dL [facility]H 01/12/2025 12:0 3 PM EDT 01/12/2025 12:05 PM EDT Narrative CLINISYNC - 01/12/2025 2:35 PM EDT Fay Naida BROCK CLINISYNC Final Result Performing Organization Address [facility] Co de Phone Number CLINISYNC TB * ALL THYROID STIM HORMONE (01/12/2025 12:03 PM EDT) THYROID STIMULATING HORMONE 3.608 0.358 - 3.740 uIU/mL TBH 01/12/2025 12:0 3 PM EDT 01/12/2025 12:05 PM EDT Narrative CLINISYNC - 01/12/2025 1:37 PM EDT Fay Naida BROCK CLINISYNC Final Result Performing Organization Address [facility] Co de Phone Number CLINISYNC TB * ALL T3 FREE (01/12/2025 12:03 PM EDT) FREE T3 2.31 2.18 - 3.98 pg/mL TBH 01/12/2025 12:0 3 PM EDT 01/12/2025 12:05 PM EDT Narrative CLINISYNC - 01/12/2025 1:37 PM EDT Fay Naida BROCK CLINISYNC Final Result Performing Organization Address [facility] Co de Phone Number CLINISYNC TB * [...] Fay Pascal NP CLINISYNC Final Result CLINISYNC [facility] * (ABNORMAL) ALL CBC WITH AUTO DIFF (01/12/2025 12:03 PM EDT) TB WBC 5.1 4.0 - 11.0 10 3/uL TBH TBH RBC 3.99(L) 4.20 - 5.40 10 6/uL TBH TB HGB 12.0 12.0 - 16.0 g/dL TB TB HCT 35.9(L) 36.0 - 48.0 % TBH TBH MCV 90.0 81.0 - 99.0 fL TBH TBH MCH 30.1 26.7 - 34.0 pg TBH TBH MCHC 33.4 29.9 - 35.2 g/dL TB [...] 12:31 PM EDT us Fay Pascal NP CLINWINDY Final Result CLINISYNC TB * MM TOMOSYNTHESIS SCREENING BI (05/11/2024 2:21 PM EST) Anatomical Region Laterality Modality Other 05/11/2024 2:21 PM EST Narrative 05/11/2024 2:22 [place] [address] Mammography Report Signed Patient: ALESHA BONILLA MR#: [id number] : 1955 Acct:[id number] Age/Sex: 68 / F ADM Date: 05/11/24 Loc: MAMMO Attending Dr: Fay Pascal NP Ordering Physician: Fay Pascal NP Results: Date of Service: 05/11/24 Follow Up: Procedure(s): MM tomosynthesis screening BI Accession Number(s): [id number] cc: Fay Pascal NP Patient Name: ALESHA BONILLA MR#: [id number] : 1955 Exam Date: 05/11/2024 Ordering Doctor: [...] lung cancer at age 74. LOCATION: The [facility] BREAST COMPOSITION: There are scattered areas [...] By: Panda Lange M.D. Signed By: 05/11/24 1422 DD/ 142 TD/TT: Video Production Coordinator: Procedure Note Radiology, Radiologist, MD - 05/11/2024 [place] [address] Mammography Report Signed Patient: ALESHA BONILLA AMR#: [id number] : 1955cct:[id number] Age/Sex: 68 / FADM Date: 05/11/24 Loc: MAMMO Attending Dr: Fay Pascal NP Ordering Physician: Fay Pascal NPResults: Date of Service: 05/11/24Follow Up: Procedure(s): MM tomosynthesis screening BI Accession Number(s): [id number] cc: Fay Pascal NP Patient Name: ALESHA BONILLA MR#: [id number] : 1955 Exam Date: 05/11/2024 Ordering Doctor: YAJAIRA Pascal CNP RADIOLOGY REPORT PROCEDURE: MM TOMOSYNTHESIS SCREENING BI COMPARISON: MM TOMOSYNTHESIS SCREENING BI, 05/10/2023. MG MAMM [id number] NEETA CAD, 05/09/2022. INDICATIONS: Screening Calculator Name [...] withlung cancer at age 74. LOCATION: The [facility] BREAST COMPOSITION: There are scattered areas [...] 14:20 Dictated By: Panda Lange M.D. Signed By:05/11/241421 DD/ 20 TD/TT: Video Production Coordinator: Fay Pascal NP CLINISYNC IMAGING Final Result from Last 3 Months or Most Recently Relevant to Health Maintenance Insurance MEDICARE AETNA Care Teams Diesel Engine Mechanic Apprentice Relationship Specialty Start Date End Date Phoenix Gannon MD PCP - General Family Medicine 06/18/23 Phoenix Gannon MD [address] [place] [address] PCP - ACO Reach 06/26/24 Fay Pascal NP [address] [place] [address] Nurse Practitioner Family Medicine 09/29/24
--- OUTSIDE RECORDS SUMMARY | 2025-03-03 12:30 | XMS_ITS | Encounter Summary ---
Author Organization [facility] Address [address] [place] [address] Care Team Providers Care Master Sheet Clerk Name Role Phone Phoenix Gannon MD Primary Care Provider [phone] Phoenix Gannon MD Unavailable Fay Pascal FISCAL SPECIALIST Unavailable [phone] Encounter Details Date Type Department Care Team (Late st Contact Info) Description 07/18/2023 External Result Encounter [facility] External Department Unsolicited Fay Pascal, FISCAL SPECIALIST [address] [place] [address] Social History Tobacco Use Types Packs/Day Years [...] than three times a week 06/26/2023 Attends Islam Services Not on file 06/26 Do you [...] Recorded Patient Health Questionnaire-2 Score 0 06/27/2023 [facility] - Occupational Stress Questionnaire Answer Date [...] place to sleep or slept in a long-term (including now)? No 06/26/2023 Comments Unknown Sex [...] D.O.07/18/2023 11:49 AM Dictation Location: [place] [address] Transcribed By: BRIE 07/18/23 1149 Dictated By: Jose Miguel oCx Jr, DO 07/18/23 1144 Signed By: <Electronically signed by Jose Miguel Cox Jr, DO in OV> 07/18/23 1149 Narrative 07/18/2023 11:51 AM EST [facility] Main [place] [id number] CT Scan Report Signed Patient: Alesha Barnes MR#: [id number] : 1955 Acct:[id number] Age/Sex: 68 / F ADM Date: 07/18/23 Loc: CT Room: Type: [facility] Attending Dr: Fay Pascal Copies to: [...] con Procedure Note Radiology, Radiologist, - 07/18/2023 [facility] Main [place] [id number] CT Scan Report Signed Patient: Alesha Barnes AMR#: [id number] : [birth year]Acct:[id number] Age/Sex: 68 / FADM Date: 07/18/23 Loc: CT Room:Type: [facility] Attending Dr: Fay Pascal Copies to: [...] Cox Jr., D.OBlanca07/18/2023 11:49 AM Dictation Location: [place] [address] Transcribed By: BRIE 07/18/23 1149 Dictated By: Jose Miguel Cox Jr, DO 07/18/23 1144 Signed By: <Electronically signed by Jose Miguel Cox Jr, DO inOV> 07/18/23 1149 Fay Pascal FISCAL SPECIALIST IMG CT PROCEDURES Final Result documented in this encounter Visit Diagnoses Not on filedocumented in this encounter Care Teams Master Sheet Clerk Relationship Specialty Start Date End Date Phoenix Gannon MD PCP - General Family Medicine 06/18/23 Phoenix Gannon MD [address] [place] [address] PCP - ACO Reach 06/26/24 Fay Pascal NP [address] [place] [address] Nurse Practitioner Family Medicine 09/29/24 documented as of this encounter
--- OUTSIDE RECORDS SUMMARY | 2025-03-03 12:30 | XMS_ITS | Encounter Summary ---
Author Organization [facility] Address [address] [place] [address] Care Team Providers Care Facility Rehab Director Name Role Phone Phoenix Gannon MD Primary Care Provider [phone] Phoenix Gannon MD Unavailable Fay Pascal TESTER OPERATOR HELPER Unavailable [phone] Encounter Details Date Type Department Care Team (Late st Contact Info) Description 06/25/2023 Abstract [facility] [address] [place] [address] Fay Pascal NP [address] [facility] [place] [address] Social History Tobacco Use Types Packs/Day Years [...] than three times a week 06/26/2023 Attends Nondenominational Services Not on file 06/26 Do you belong to any clubs o r organizations such as mu-ism groups, unions, fraternal or athletic groups, or [...] Recorded Patient Health Questionnaire-2 Score 0 06/27/2023 [facility] - Occupational Stress Questionnaire Answer Date [...] place to sleep or slept in a alf (including now)? No 06/26/2023 Comments Unknown Sex and Gender Information Value Date Recorded Sex Assigned at Not on file Legal Sex Female 8:21 PM EDT Gender Identity Not on file Sexual Orientation Not on file documented as of this encounter Functional Status * AUDIT-C Score Answer Date of Assessment Author 0 06/26/2023 5:35 PM EST Mychart, Generic * Q1: How often do you have a drink containing alcohol? Answer Date of Assessment Author Never 06/26/2023 5:35 PM EST Mychart, Generic * Q2: How many drinks containing alcohol do you have on a typical day when you are drinking? Answer Date of Assessment Author Patient does not drink 06/26/2023 5:35 PM EST My chart, Generic * Q3: How often do you have six or more drinks on one occasion? Answer Date of Assessment Author Never 06/26/2023 5:35 PM EST Mychart, Generic * Over the past 2 weeks, how often have you been bothered by any of the following problems? Question Answer Date of Assessment Author Little interest or pleasure in doing things Not at all 06/27/2023 9:53 AM Amilcar Kemp MA Feeling down, depressed, or hopeless Not at all 06/27/2023 9:53 AM Amilcar Kemp MA Patient Health Questionnaire-2 Score 0 06/27/2023 9:53 AM EST Gabriella Groves MA documented as of this encounter Plan of Treatment Not on file documented as of this encounter Visit Diagnoses Not on filedocumented in this encounter Care Teams Facility Rehab Director Relationship Specialty Start Date End Date Phoenix Gannon MD PCP - General Family Medicine 06/18/23 Phoenix Gannon MD [address] [place] [address] PCP - ACO Reach 06/26/24 Fay Pascal NP [address] [place] [address] Nurse Practitioner Family Medicine 09/29/24 documented as of this encounter
--- OUTSIDE RECORDS SUMMARY | 2025-03-03 12:30 | XMS_ITS | Encounter Summary ---
Author Organization [facility] Address [address] [place] [address] Care Team Providers Care Date Puller Name Role Phone Phoenix Gannon MD Primary Care Provider [phone] Phoenix Gannon MD Unavailable Fay Pascal MARBLE MACHINE OPERATOR Unavailable [phone] Encounter Details Date Type Department Care Team (Late st Contact Info) Description 05/11/2024 Clinisync Result Encounter [facility] External Department Unsolicited Fay Pascal, MARBLE MACHINE OPERATOR [address] [place] [address] Social History Tobacco Use Types Packs/Day Years [...] than three times a week 06/26/2023 Attends Mormonism Services Not on file 06/26 Do you belong to any clubs o r organizations such as jehovah's witness groups, unions, fraternal or athletic groups, or [...] Recorded Patient Health Questionnaire-2 Score 0 01/07/2024 [facility] Occupat ional Health - Occupational [...] EST Narrative 05/11/2024 2:22 [place] [address] Mammography Report Signed Patient: ALESHA BONILLA MR#: [id number] : 1955 Acct:[id number] Age/Sex: 68 / F ADM Date: 05/11/24 Loc: MAMMO Attending Dr: Fay Pascal NP Ordering Physician: Fay Pascal NP Results: Date of Service: 05/11/24 Follow Up: Procedure(s): MM tomosynthesis screening BI Accession Number(s): [id number] cc: Fay Pascal NP Patient Name: ALESHA BONILLA MR#: [id number] : 1955 Exam Date: 05/11/2024 Ordering Doctor: [...] lung cancer at age 74. LOCATION: The [facility] BREAST COMPOSITION: There are scattered [...] Signed By: 05/11/24 1422 DD/ 142 TD/TT: Veneer Redrier: Procedure Note Radiology, Radiologist, MD - 05/11/2024 [place] [address] Mammography Report Signed Patient: ALESHA BONILLA AMR#: [id number] : 1955cct:[id number] Age/Sex: 68 / FADM Date: 05/11/24 Loc: MAMMO Attending Dr: Fay Pascal NP Ordering Physician: Fay Pascal NPResults: Date of Service: 05/11/24Follow Up: Procedure(s): MM tomosynthesis screening BI Accession Number(s): [id number] cc: Fay Pascal NP Patient Name: ALESHA BONILLA MR#: [id number] : 1955 Exam Date: 05/11/2024 Ordering Doctor: YAJAIRA Pascal CNP RADIOLOGY REPORT PROCEDURE: MM TOMOSYNTHESIS SCREENING BI COMPARISON: MM TOMOSYNTHESIS SCREENING BI, 05/10/2023. MG MAMM [id number] NEETA CAD, 05/09/2022. INDICATIONS: Screening Calculator Name [...] withlung cancer at age 74. LOCATION: The [facility] BREAST COMPOSITION: There are scattered [...] M.D. Signed By:05/11/24 1422 DD/ 1421 TD/TT: Veneer Redrier: us Fay Pascal NP CLINISYNC IMAGING Final Result documented in this encounter Visit Diagnoses Not on filedocumented in this encounter Additional Health Concerns Assessment Noted Time PHQ-9 Depression Total Score: 2 01/07/20 24 10:38 AM EDT documented as of this encounter Care Teams Date Puller Relationship Specialty Start Date End Date Phoenix Gannon MD PCP - General Family Medicine 06/18/23 Phoenix Gannon MD [address] [place] [address] PCP - ACO Reach 06/26/24 Fay Pascal NP [address] [place] [address] Nurse Practitioner Family Medicine 09/29/24 documented as of this encounter
--- OUTSIDE RECORDS SUMMARY | 2025-03-03 12:30 | XMS_ITS | Encounter Summary ---
Author Organization [facility] Address [address] [place] [address] Care Team Providers Care Cycle Touring Guide Name Role Phone Phoenix Gannon MD Primary Care Provider [phone] Phoenix Gannon MD Unavailable Fay Pascal FOREST TECHNOLOGY PROFESSOR Unavailable [phone] Encounter Details Date Type Department Care Team (Late st Contact Info) Description 01/15/2024 [facility] [address] [place] [address] Fay Pascal, DELMY [address] [place] [address] Social History Tobacco Use Types Packs/Day Years [...] than three times a week 06/26/2023 Attends Voodoo Services Not on file 06/26 Do you belong to any clubs o r organizations such as buddhist groups, unions, fraternal or athletic groups, or [...] Recorded Patient Health Questionnaire-2 Score 0 01/07/2024 [facility]at [facility] [...] the money to buy more. Never true 02/07/20 24 Within the past 12 months, t [...] place to sleep or slept in a [place] [facility] [place] facility (including now)? No 06/26/2023 Comments Unknown Sex [...] * [facility] (01/15/2024 11:29 AM EDT) us Fay Pascal FOREST TECHNOLOGY PROFESSOR LAB CHG PERFORMABLES Final Resu lt documented in this encounter Visit Diagnoses Not on filedocumented in this encounter Additional Health Concerns Assessment Noted Time PHQ-9 Depression Total Score: 2 01/07/20 10:38 AM EDT documented as of this encounter Care Teams Cycle Touring Guide Relationship Specialty Start Date End Date Phoenix Gannon MD PCP - General Family Medicine 06/18/23 Phoenix Gannon MD [address] [place] [address] PCP - ACO Reach 06/26/24 Fay Pascal NP [address] [place] [address] Nurse Practitioner Family Medicine 09/29/24 documented as of this encounter
--- OUTSIDE RECORDS SUMMARY | 2025-03-03 12:30 | XMS_ITS | Encounter Summary ---
Author Organization [facility] Address [address] [place] [address] Care Team Providers Care Association Executive Name Role Phone Phoenix Gannon MD Primary Care Provider [phone] Phoenix Gannon MD Unavailable Fay Pascal WAREDRESSER Unavailable [phone] Encounter Details Date Type Department Care Team (Late st Contact Info) Description 01/15/2024 Clinisync Result Encounter [facility] External Department Unsolicited Fay Pascal, WAREDRESSER [address] [place] [address] Social History Tobacco Use Types Packs/Day Years [...] any clubs o r organizations such as baptist groups, unions, fraternal or athletic groups, or [...] Recorded Patient Health Questionnaire-2 Score 0 01/07/2024 [facility] Occupat ional Health - Occupational Stress [...] EDT Narrative 01/15/2024 11:17 [place] [address] Cardiology Report Signed Patient: ALESHA BONILLA MR#: [id number] : 1955 Acct:[id number] Age/Sex: 68 / F ADM Date: 01/15/24 Loc: CARD Attending Dr: Fay Pascal NP Ordering Physician: Fay Pascal NP Date of Service: 01/15/24 Procedure(s): CA echo doppler complete Accession Number(s): [id number] cc: Fay Pascal NP Patient Name: ALESHA BONILLA MR#: [id number] : 1955 Exam Date: 01/15/2024 Ordering Doctor: [...] Area (VTI): 2.20 cm2, 2.20 cm2 Deceleration [place]: 1.95 m/s2 Pressure Half-Time: 602.12 ms Peak [...] Signed By: 01/15/24 1117 DD/ 1116 TD/TT: Hog Cooler: Procedure Note Radiology, Radiologist, MD - 01/15/[address] [address] Cardiology Report Signed Patient: ALESHA BONILLA [facility]#: [id number] : 6Acct:[id number] Age/Sex: 68 / FADM Date: 01/15/24 Loc: CARD Attending Dr: Fay Pascal NP Ordering Physician: Fay Pascal NP Date of Service: 01/15/24 Procedure(s): CA echo doppler complete Accession Number(s): [id number] cc: Fay Pascal NP Patient Name: ALESHA BONILLA MR#: [id number] : 1955 Exam Date: 01/15/2024 Ordering Doctor: [...] Area (VTI): 2.20 cm2, 2.20 cm2 Deceleration [place]: 1.95 m/s2 Pressure Half-Time: 602.12 ms Peak [...] at 11:16 Dictated By: LAMBERT GAITAN Signed By:01/15/24 1117 DD/ 1116 TD/TT: Hog Cooler: us Fay Pascal WAREDRESSER CLINISYNC IMAGING Final Result documented in this encounter Visit Diagnoses Not on filedocumented in this encounter Additional Health Concerns Assessment Noted Time PHQ-9 Depression Total Score: 2 01/07/20 10:38 AM EDT documented as of this encounter Care Teams Association Executive Relationship Specialty Start Date End Date Phoenix Gannon MD PCP - General Family Medicine 06/18/23 Phoenix Gannon MD [address] [place] [address] PCP - ACO Reach 06/26/24 Fay Pascal NP [address] [place] [address] Nurse Practitioner Family Medicine 09/29/24 documented as of this encounter
--- OUTSIDE RECORDS SUMMARY | 2025-03-03 12:30 | XMS_ITS | Clinical Summary ---
Author Organization [employer] tem Address [id number] [address] 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
--- OUTSIDE RECORDS SUMMARY | 2025-03-03 12:31 | XMS_ITS | CCD ---
Author Organization [facility] CliniSyut Care Team Providers Care Crusher Setter Name Role Phone Kelsey Pop Unavailable FabiolaPanda [...] Unavailable Phoenix Garner MD Primary Care Provider [phone] FAY PASCAL Primary Care Physician [phone] Jose M SANTO Attending Unavailable FAY PASCAL Referring Unavailable JoseM SANTO Attending Unavailable FLORINA Wade Attending Provider MD Bright Mccall II Attending Provider [phone] Phoenix Garner Primary Care Unavailable Fay Pascal Admitting Unavailable Fay Pascal Attending Unavailable Christiane Wade Admitting UnavailChristiane Barth Attending Unavailjessy e NON STAFF Primary Care Unavailable Bright Mccall II Admitting Unavailjessy e Bright Mccall II Attending UnavailaFy Queen APRN, NP Primary Care Provide r [...] Medication Allergies] Propensity to adverse reactions (disorder) [facility] Repository Medications Current Medications Medication Drug Class(es) [...] every week ergocalciferol (Vitamin D-2) 1.25 MG (28417 UT) capsule Take 1.25 mg by mouth [...] of malignant neoplasm of digestive organs; Translations: [[facility] NEOPLASM DIGESTIV ORGN] Onset: 05-17-2022 Episodic Residual codes; unclassified (1 source) Family history of malignant neoplasm of trachea, bronchus and lung; Translations: [[facility] NEOPLSM TRACH BRON LNG] Onset: 05-17-2022 Episodic Residual codes; unclassified (1 source) Family history of malignant neoplasm of other organs or systems; Translations: [[facility] NEOPLASM OTH ORGN/SYS] Onset: 05-17-2022 Episodic Thyroid [...] 5 01-07-2024 Other aftercare (1 source) Other alf (current) drug therapy; Translations: [OTH MULTIPLE COIL WINDER CURRENT DRUG THERAPY] Onset: 2 Episodic Other [...] WITH AUTO DIFFon BASOPHILS ABSOLUTE AUTO 0 [facility] Basophils/100 WBC (Bld) 0.6 % 0.2 - 2.0 % [facility] Eosinophils/100 WBC (Bld) 1.2 % 0.9 - 7.0 % [facility] Erythrocyte distribution width (RBC) [Ratio] 13 % 11.0 - 15.0 % [facility] Hematocrit (Bld) [Volume fraction] 35.9 % Low 36.0 - 48.0 % [facility] Hemoglobin (Bld) [Mass/Vol] 12 g/dL 12.0 - 16.0 g/dL [facility] IMMATURE GRANULOCYTES ABS AUTO 0.02 [facility] Immature granulocytes/100 WBC (Bld) 0.4 % 0.0 - 0.5 % [facility] Interpretation and review of laboratory results Abnormal [facility] LYMPHOCYTES ABSOLUTE AUTO 0.8 Low [facility] Lymphocytes/100 WBC (Bld) 14.6 % Low 20.5 - 60.0 % [facility] MCH (RBC) [Entitic mass] 30.1 pg 26.7 - 34.0 pg [facility] MCHC (RBC) [Mass/Vol] 33.4 g/dL 29.9 - 35.2 g/dL [facility] MCV (RBC) [Entitic vol] 90 fL 81.0 - 99.0 fL [facility] MONOCYTES ABSOLUTE AUTO 0.4 [facility] Monocytes/100 WBC (Bld) 8.6 % 1.7 - 12.0 % [facility] NEUTROPHILS ABSOLUTE AUTO 3.8 [facility] Neutrophils/100 WBC (Bld) 74.6 % 43.0 - 75.0 % [facility] Platelet mean volume (Bld) [Entitic vol] 10.2 fL 9.5 - 13.5 fL [facility] TBH EO # 0.1 [facility] TBH PLT 174 [facility] RBC 3.99 Low [facility] WBC 5.1 [facility] MLR HEMOGLOBIN A1Con 025 Glucose [Mass/Vol] 100 mg/dL [facility] HbA1c (Bld) [Mass fraction] 5.1 % 4.5 - 6.2 % [facility] Comment on above: ADA RECOMMENDED LIMI T 4.0 - 6.0 ADA THERAPEUTIC TARGET < 7.0 ACTION SUGGESTED > 7.0 [facility] Consult [phone] Shabana Bonilla 1955 F Date Provider Department Center 09/23/2024 [facility]AIM GABRIEL [facility] Second Fl No family history on file Level of Service:53555 SD OFFICE/OUTPATIENT NEW LOW MDM 30 MINUTES Reason for Visit and Comments: Rectal Bleeding [638787] Normal [facility] MHPT VAGINITIS DNA PROBEon 0 09-10-2024 PT ALEKSANDR Negative NEG [facility] Comment on above: for Aleksandr sp. Method of testing is a DNA probe intended for detection and identification of Aleksandr species, Gardnerella vaginalis, and Trichomonas vaginalis nucleic acid in vaginal fluid specimens from patients with symptoms of vaginitis/vaginosis. MHPT GARDNERELLA Negative NEG [facility] Comment on above: for Gardnerella vagi nalis MHPT SOURCE .[facility] Negative NEG [facility] Comment on above: for Trichomonas Vagi nalis Original Ordering Pr ovider: KALIN VLADIMIRMacho CHANTEL [facility] Vaginitis DNA Probeon 2024 Aleksandr species Negative NEGATIVE [facility] Comment on above: for Aleksandr sp. Method of testing is a DNA probe intended for detection and identification of Aleksandr species, Gardnerella vaginalis, and Trichomonas vaginalis nucleic acid in vaginal fluid specimens from patients with symptoms of vaginitis/vaginosis. GARDNERELLA VAGINALIS Negative NEGATIVE [facility] Comment on above: for Gardnerella vagi nalis Source .VAGINAL SWAB [facility] Trichomonas Negative NEGATIVE [facility] Comment on above: for Trichomonas Vagi nalis [facility] Aleksandr Negative Normal [facility] Comment on above: Result Comment: for Aleksandr sp. Method of testing is a DNA probe intended for detection and identification of Aleksandr species, Gardnerella vaginalis, and Trichomonas vaginalis nucleic acid in vaginal fluid specimens from patients with symptoms of vaginitis/vaginosis. Performed By: #### V AGP #### [facility] [place], [place] [id number] Bomb Loader: Daniel Dyer MD [facility] [address] [place] [address] [place] [address] Bomb Loader: Panda aCrbone MD Gardnerella Negative Normal [facility] Comment on above: Result Comment: for Gardnerella vaginalis Performed By: #### V AGP #### [facility] [address] [place] [address] Bomb Loader: Daniel Dyer MD [facility] [address] [place] [address] [place] [address] Bomb Loader: Panda Carbone MD Trichomonas Negative Normal [facility] Comment on above: Result Comment: for Trichomonas Vaginalis Performed By: #### V AGP #### [employer] [address] [place] [address] Bomb Loader: Daniel Dyer MD [facility] [address] [place] [address] [place] [address] Bomb Loader: Panda Carbone MD Source .VAGINAL SWAB Normal [facility] Comment on above: Performed By: #### V AGP #### [facility] [address] [place] [address] Bomb Loader: Daniel Dyer MD [facility] [address] [place] [address] [place] [address] Bomb Loader: Panda Carbone MD [facility] VAGINITIS DNA PROBEon 0 08-21-2024 Interpretation and review of laboratory results Abnormal [facility] ALEKSANDR Negative NEG [facility] Comment on above: for Aleksandr sp. Method of testing is a DNA probe intended for detection and identification of Aleksandr species, Gardnerella vaginalis, and Trichomonas vaginalis nucleic acid in vaginal fluid specimens from patients with symptoms of vaginitis/vaginosis. PT GARDNERELLA Positive Abnormal NEG [facility] Comment on above: for Gardnerella vagi nalis [facility] SOURCE .VAGINAL SWAB [facility] TRICHOMONAS Negative [facility] Comment on above: for Trichomonas Vagi nalis Original Ordering Pr ovider: KALIN CHONG BANNER [facility] Vaginitis DNA Probeon 2024 Aleksandr Negative Normal NEG [facility] Comment on above: Result Comment: for Aleksandr sp. Method of testing is a DNA probe intended for detection and identification of Aleksandr species, Gardnerella vaginalis, and Trichomonas vaginalis nucleic acid in vaginal fluid specimens from patients with symptoms of vaginitis/vaginosis. Performed By: #### V AGP #### [facility] [address] [place] [address] Bomb Loader: Daniel Dyer MD [facility] [address] [place] [address] [place] [address] Bomb Loader: Panda Carbone MD Gardnerella Positive Abnormal NEG [facility] Comment on above: Result Comment: for Gardnerella vaginalis Performed By: #### V AGP #### [facility] [address] [place] [address] Bomb Loader: Daniel Dyer MD [facility] [address] [place] [address] [place] [address] Bomb Loader: Panda Carbone MD Trichomonas Negative Normal NEG [facility] Comment on above: Result Comment: for Trichomonas Vaginalis Performed By: #### V AGP #### [facility] [address] [place] [address] Bomb Loader: Daniel Dyer MD [facility] [address] [place] [address] [place] [address] Bomb Loader: Panda Carbone MD Vaginitis DNA Probeon 2024 Source .VAGINAL SWAB Normal [facility] Comment on above: Performed By: #### V AGP #### [facility] [address] [place] [address] Bomb Loader: Daniel Dyer MD [facility] [address] [place] [address] [place] [address] Bomb Loader: Panda Carbone MD ALL THYROID STIM HORMONEon 1 06-22-2023 Interpretation and review of laboratory results Abnormal [facility] TSH Qn 9.973 m[IU]/L High [facility] Healthcare [facility] XR knee RT 4V*on 03-19-2024 XR knee RT 4V* [facility] [address] [place] [address] XRay Report Signed Patient: Alesha Bonilla MR#: [id number] 57 : 1955 Acct:[id number] Age/Sex: 68 / F ADM Date: 03/19/24 Loc: [facility] [place] [place] Room: Type: [facility] CLI Attending Dr: Bright Mccall II, MD Copies to: Bright Mccall MD Ordering Provider: Bright Mccall MD Date of Service: 03/19/24 XR/XR knee RT 4V*: M25.561 - Pain in right knee ([id number]) XR/XR pelvis 1-2V: M25.561 - Pain in right knee Single view of the pelvis plain film HISTORY: RIGHT knee deformity for 15 years COMPARISON: None ACUTE FINDINGS: None BONY ALIGNMENT: Adequate SOFT TISSUES: Unremarkable DEGENERATIVE CHANGE:Unremarkable INTRAPELVIC STRUCTURES: Unremarkable POSTSURGICAL CHANGES:None XR/XR pelvis 1-2V IMPRESSION:Unremarkable exam. 4 views RIGHT knee Valgus deformity. Xayq-bv-snrs contact lateral degenerative change. Small joint effusion. No acute bony findings. IMPRESSION: Valgus deformity of the RIGHT knee. Extensive ggfu-ks-hfms lateral degeneration. Impression dictated by: Dru Hu M.D.03/19/2024 3:48 PM Dictation Location: [place] [address] Transcribed By: [facility] 03/19/24 1548 Dictated By: Dru Hu DO 03/19/24 1547 Signed By: 03/19/24 1548 Normal [facility] Urine Cultureon 12-03-2023 Bacteria identified Cx Nom (U) <9,000 colonies/ml mixed bacterial skin contaminants 2 Days PERFORMED BY: [place] [address] PATHOLOGIST MANAGER SKILLED DON BOSTON M.D. Normal [facility] Comment on above: Performed By: #### C UU #### [address] Outside Colonoscopyon 2023 Outside Colonoscopy [id number]#1.00TIFF Normal [facility] Reminderson 08-01-2023 Reminders - From: Siobhan Jernigan LPN To: GSN - Clinical; Sent: 08/01/2023 14:37:14 EDT Show up: 07/02/2033 07:00:00 EST Subject: colonoscopy recall Due Date/Time: 07/30/2033 07:00:00 EDT Reminder/Recall Patient due for screening colonoscopy 07/30/2033. Normal [facility] Transfer Inon 07-19-2023 Transfer In [id number]#1.00TIFF Normal [facility] Blood Urea Nitrogenon 2023 Urea nitrogen [Mass/Vol] 16 mg/dL Normal 7-25 [facility] Comment on above: Order Comment: STAT FOR CT Performed By: #### B UN, CREAT #### [address] abdomen pelvis w conon CT abdomen pelvis w con [facility] [place] [address] [place] [address] CT Scan Report Signed Patient: Alesha Bonilla MR#: [id number] 57 : 1955 Acct:[id number] Age/Sex: 68 / F ADM Date: 07/18/23 Loc: CT Room: Type: [facility] Attending Dr: Fay Pascal Copies to: [...] Cox Jr., DBlancaOBlanca07/18/2023 11:49 AM Dictation Location: [place] [address] Transcribed By: [facility] 07/18/23 1149 Dictated By: Jose Miguel Cox Jr, DO 07/18/23 1144 Signed By: 07/18/23 1149 Normal [facility] Creatinineon 07-18-2023 Creatinine [Mass/Vol] 0.82 mg/dL Normal 0.60-1.20 [facility] Comment on above: Order Comment: STAT FOR CT Performed By: #### B UN, CREAT #### [facility] [address] [place] [address] GFR/1.73 sq M.predicted MDRD (S/P/Bld) [Vol rate/Area] mL/min/{1.73_m2} Normal [facility] Comment on above: Order Comment: STAT FOR CT Result Comment: PERF ORMED BY: [place] [address] PATHOLOGIST MANAGER SKILLED DON BOSTON M.D. Performed By: #### B UN, CREAT #### [facility] [address] [place] [address] Facesheeton 07-11-2023 Facesheet [id number]#1.00TIFF Normal [facility] Ambulatory Visit Summaryon 0 07-10-2023 Ambulatory Visit [...] for choosing us for your care. Normal [facility] Physician Referralon 024 Physician Referral [id number]#1.00TIFF Normal [facility] ALL CBC WITH AUTO DIFFon BASOPHILS ABSOLUTE AUTO 0.0 [facility] Basophils/100 WBC (Bld) 0.8 % 0.2 - 2.0 % [facility] Eosinophils/100 WBC (Bld) 1.2 % 0.9 - 7.0 % [facility] Erythrocyte distribution width (RBC) [Ratio] 12.5 % 11.0 - 15.0 % [facility] Hematocrit (Bld) [Volume fraction] 39.2 % 36.0 - 48.0 % [facility] Hemoglobin (Bld) [Mass/Vol] 12.9 g/dL 12.0 - 16.0 g/dL [facility] IMMATURE GRANULOCYTES ABS AUTO 0.01 [facility] Immature granulocytes/100 WBC (Bld) 0.2 % 0.0 - 0.5 % [facility] Interpretation and review of laboratory results Abnormal [facility] LYMPHOCYTES ABSOLUTE AUTO 0.7 Low [facility] Lymphocytes/100 WBC (Bld) 14.3 % Low 20.5 - 60.0 % [facility] MCH (RBC) [Entitic mass] 29.9 pg 26.7 - 34.0 pg [facility] MCHC (RBC) [Mass/Vol] 32.9 g/dL 29.9 - 35.2 g/dL [facility] MCV (RBC) [Entitic vol] 90.7 fL 81.0 - 99.0 fL [facility] MONOCYTES ABSOLUTE AUTO 0.5 [facility] Monocytes/100 WBC (Bld) 9.4 % 1.7 - 12.0 % [facility] NEUTROPHILS ABSOLUTE AUTO 3.9 [facility] Neutrophils/100 WBC (Bld) 74.1 % 43.0 - 75.0 % [facility] Platelet mean volume (Bld) [Entitic vol] 10.2 fL 9.5 - 13.5 fL [facility] EO # 0.1 [facility] PLT 181 [facility] RBC 4.32 [facility] WBC 5.2 [facility] CNOVon 07-30-2022 CNOV Office Visit (CORSMN ) ALESHA BONILLA ([id number]) 1955 F Date Time Provider Department 07/30/22 [...] scan,MRI and colonoscopy ( brought to front end manager to be scanned in) were completed [...] liver disea (more content not included)... Normal [facility] HISTORY PHYSICALon 3 HISTORY PHYSICAL HNO ID: [id number] Author: Lorraine Christine PA-C Service: ? Author Type: Physician [employer] Manager Type: HANDP Filed: 07/30/2022 11:25 AM Note [...] scan,MRI and colonoscopy ( brought to front end manager to be scanned in) were completed [...] cord stimula (more content not included)... Normal [facility] MG MAMM SCREEN 3D NEETA CADon 05-09-2022 MG MAMM SCREEN 3D NEETA CAD Patient: ALESHA BONILLA Exam Date: 05/09/2022 : 1955 Gender:F Ordering : DR PHOENIX GARNER . Admission #: [id number] Family : Order #: [id number] CLICK HERE TO VIEW EXAM RADIOLOGY REPORT [...] lung cancer at age 74. LOCATION: [facility] BREAST COMPOSITION: Scattered areas fibroglandular density. [...] M.D. on 05/09/2022 at 10:59 Normal [facility] CBC AUTO DIFFon 10-18-2021 BASO # 0.0 103/ul Normal 0.0-0.1 Comment on above: Performed By: #### C BC #### [facility] [address] [place] [address] [address] William García Basophils/100 WBC (Bld) 0.8 % Normal 0.2-2.0 Comment on above: Performed By: #### C BC #### [facility] [address] [place] [address] [address] William García EO # 0.1 103/ul Normal 0.0-0.7 Comment on above: Performed By: #### C BC #### [facility] [address] [place] [address] Dr. William García Eosinophils/100 WBC (Bld) 2.0 % Normal 0.9-7.0 Comment on above: Performed By: #### C BC #### [facility] [address] [place] [address] Dr. William García Erythrocyte distribution width (RBC) [Ratio] 12.7 % Normal 11.0-15.0 Comment on above: Performed By: #### C BC #### [facility] [address] [place] [address] Dr. William García Hematocrit (Bld) [Volume fraction] 39.2 % Normal 36.0-48.0 Comment on above: Performed By: #### C BC #### [facility] [address] [place] [address] Dr. William García Hemoglobin (Bld) [Mass/Vol] 12.8 g/dL Normal 12.0-16.0 Comment on above: Performed By: #### C BC #### [facility] [address] [place] [address] Dr. William García IG # 0.01 10e3/ul Normal 0.00-0.03 Comment on above: Performed By: #### C BC #### [facility] [address] [place] [address] Dr. William García IG % 0.2 % Normal 0.0-0.5 Comment on above: Performed By: #### C BC #### [facility] [address] [place] [address] Dr. William García LYMPH # 0.9 103/ul Critically low 1.2-3.8 [facility] Comment on above: Performed By: #### C BC #### [facility] [address] [place] [address] Dr. William García Lymphocytes/100 WBC (Bld) 17.4 % Critically low 20.5-60.0 Comment on above: Performed By: #### C BC #### [facility] [address] [place] [address] Dr. William García MANUAL DIFF REQ NO Normal [facility] [place] Comment on above: Performed By: #### C BC #### [facility] [address] [place] [address] Dr. William García MCH (RBC) [Entitic mass] 30.0 pg Normal 26.7-34.0 Comment on above: Performed By: #### C BC #### [facility] [address] [place] [address] Dr. William García MCHC (RBC) [Mass/Vol] 32.7 g/dL Normal 29.9-35.2 [facility] Comment on above: Performed By: #### C BC #### [facility] [address] [place] [address] Dr. William García MCV (RBC) [Entitic vol] 91.8 fL Normal 81.0-99.0 Comment on above: Performed By: #### C BC #### [facility] [address] [place] [address] Dr. William García MONO # 0.5 103/ul Normal 0.3-0.8 [facility] Comment on above: Performed By: #### C BC #### [facility] [address] [place] [address] Dr. William García Monocytes/100 WBC (Bld) 10.7 % Normal 1.7-12.0 [facility] Comment on above: Performed By: #### C BC #### [facility] [address] [place] [address] Dr. William García NEUT # 3.5 103/ul Normal 1.4-6.5 [facility] Comment on above: Performed By: #### C BC #### [facility] [address] [place] [address] [address] William García Neutrophils/100 WBC (Bld) 68.9 % Normal 43.0-75.0 Comment on above: Performed By: #### C BC #### [facility] [address] [place] [address] [address] William García Platelet mean volume (Bld) [Entitic vol] 10.3 fL Normal 9.5-13.5 Comment on above: Performed By: #### C BC #### [facility] [address] [place] [address] [address] William García PLT 189 103/ul Normal 150-450 [facility] Comment on above: Performed By: #### C BC #### [facility] [address] [place] [address] [address] William García RBC 4.27 106/ul Normal 4.20-5.40 Comment on above: Performed By: #### C BC #### [facility] [address] [place] [address] [address] William García WBC 5.1 103/ul Normal 4.0-11.0 Comment on above: Performed By: #### C BC #### [facility] [address] [place] [address] Dr. William García FREE T3on 10-18-2021 FREE T3 2.63 pg/mlL Normal 2.18-3.98 Comment on above: Performed By: #### F T3, TSH, AST, LIPID, ALT, BMP ####[facility] [address] [place], [place] [address]AkDr. William García FREE T4on 10-18-2021 Free T4 [Mass/Vol] 1.42 ng/dL Normal 0.76-1.46 [facility] Comment on above: Performed By: #### F T4, VITAD #### [facility] [address] [place] [address] [address] William García GLYCOHEMOGLOBIN A1Con 2021 ADA RECOMMENDATION SEE BELOW Normal [facility] Comment on above: Result Comment: ADA RECOMMENDED LIMIT 4.0 - 6.0 ADA THERAPEUTIC TARGET < 7.0 ACTION SUGGESTED > 7.0 Performed By: #### A 1C #### [facility] [address] [place] [address] [address] William García Glucose [Mass/Vol] 105 mg/dL Normal [facility] Comment on above: Performed By: #### A 1C #### [facility] [address] [place] [address] [address] William García HbA1c (Bld) [Mass fraction] 5.3 % Normal 4.5-6.2 Comment on above: Performed By: #### A 1C #### [facility] [address] [place] [address] [address] William García LIPID PROFILEon 10-18-2021 CHOL-HDL RATIO NORM SEE BELOW Normal Comment on above: Result Comment: 3.3 - 4.4 LOW RISK 4.4 - 7.1 AVERAGE RISK 7.1 - 11.0 MODERATE RISK >11.0 HIGH RISK Performed By: #### F T3, TSH, AST, LIPID, ALT, BMP ####[facility] [address] [place] [address]DrBlanca García Cholesterol [Mass/Vol] 222 mg/dL Critically high <=200 Comment on above: Performed By: #### F T3, TSH, AST, LIPID, ALT, BMP ####[facility] [address] [place] [address]DrBlanca García Cholesterol in HDL [Mass/Vol] 76 mg/dL Critically high 40-60 Comment on above: Performed By: #### F T3, TSH, AST, LIPID, ALT, BMP ####[facility] [address] [place] [address]DrBlanca García Cholesterol in LDL [Mass/Vol] 136.4 mg/dL Normal Comment on above: Performed By: #### F T3, TSH, AST, LIPID, ALT, BMP ####[facility] [address] [place] [address]DrBlanca García Cholesterol.total/ Cholesterol in HDL [Mass ratio] 2.9 {ratio} Normal [facility] Comment on above: Performed By: #### F T3, TSH, AST, LIPID, ALT, BMP ####[facility] [address] [place] [address]Dr[address] William García HDL NORMAL > or = 60 mg/dl - LO W CARDIOVASCULAR RISK <40 mg/dl - HIGH CARDIOVASCULAR RISK Normal Comment on above: Performed By: #### F T3, TSH, AST, LIPID, ALT, BMP ####[facility] [address] [place] [id number]. William García LDL CALC NORMAL SEE BELOW Normal [facility] Comment on above: Result Comment: <100 mg/dl OPTIMAL 100 - 129 mg/dl NEAR OR ABOVE OPTIMAL 130 - 159 mg/dl BORDERLINE HIGH 160 - 189 mg/dl HIGH >190 mg/dl VERY HIGH Performed By: #### F T3, TSH, AST, LIPID, ALT, BMP ####[facility] [address] [place] [address]Dr. William García Triglyceride [Mass/Vol] 48 mg/dL Normal <=150 Comment on above: Performed By: #### F T3, TSH, AST, LIPID, ALT, BMP ####[facility] [address] [place] [id number]. William García VLDL CALC 9.6 mg/dL Normal Comment on above: Performed By: #### F T3, TSH, AST, LIPID, ALT, BMP ####[facility] [address] [place] [id number]. William García PROF CHEM 8 (BAS METB)on Anion gap [Moles/Vol] 11.6 mmol/L Normal Comment on above: Performed By: #### F T3, TSH, AST, LIPID, ALT, BMP ####[facility] [address] [place] [id number]. William García Calcium [Mass/Vol] 9.0 mg/dL Normal 8.5-10.1 [facility] Comment on above: Performed By: #### F T3, TSH, AST, LIPID, ALT, BMP ####[facility] [address] [place] [address]Dr. William García Chloride [Moles/Vol] 106 mmol/L Normal 98-107 [facility] Comment on above: Performed By: #### F T3, TSH, AST, LIPID, ALT, BMP ####[facility] [address] [place] [address]Dr. William García CO2 [Moles/Vol] 28.4 mmol/L Normal 21.0-32.0 [facility] Comment on above: Performed By: #### F T3, TSH, AST, LIPID, ALT, BMP ####[facility] [address] [place], [place] [address]Dr. William García Creatinine [Mass/Vol] 0.64 mg/dL Normal 0.55-1.02 Comment on above: Performed By: #### F T3, TSH, AST, LIPID, ALT, BMP ####[facility] [address] [place], [place] [address]Dr. William García EGFR-AF CITIZEN OF [place] >60 Normal >=60 [facility] Comment on above: Performed By: #### F T3, TSH, AST, LIPID, ALT, BMP ####[facility] [address] [place] [address]Dr. William García EGFR-NON AF CITIZEN OF [place] >60 Normal >=60 Comment on above: Performed By: #### F T3, TSH, AST, LIPID, ALT, BMP ####[facility] [address] [place] [address]Dr. Wliliam García Glucose [Mass/Vol] 87 mg/dL Normal 74-106 [facility] Comment on above: Performed By: #### F T3, TSH, AST, LIPID, ALT, BMP ####[facility] [address] [place] [address]Dr. William García Potassium [Moles/Vol] 4.0 mmol/L Normal 3.5-5.1 [facility] Comment on above: Performed By: #### F T3, TSH, AST, LIPID, ALT, BMP ####[facility] [address] [place] [address]Dr. William García Sodium [Moles/Vol] 142 mmol/L Normal 136-145 [facility] Comment on above: Performed By: #### F T3, TSH, AST, LIPID, ALT, BMP ####[facility] [address] [place] [address]Dr. William García Urea nitrogen [Mass/Vol] 14.0 mg/dL Normal 7.0-18.0 Comment on above: Performed By: #### F T3, TSH, AST, LIPID, ALT, BMP ####[facility] [address] [place] [address]Dr. William García Urea nitrogen/Creatinin e [Mass ratio] 21.9 mg/mg Normal Comment on above: Performed By: #### F T3, TSH, AST, LIPID, ALT, BMP ####[facility] [address] [place] [address]Dr. William García SGOTon 10-18-2021 AST [Catalytic activity/Vol] 18 U/L Normal 15-37 Comment on above: Performed By: #### F T3, TSH, AST, LIPID, ALT, BMP #### [facility] [address] [address] DrBlanca García SGPTon 10-18-2021 ALT [Catalytic activity/Vol] 24 U/L Normal 14-59 Comment on above: Performed By: #### F T3, TSH, AST, LIPID, ALT, BMP ####[facility] [address] [place] [address]Dr. William García TSHon 10-18-2021 TSH 0.729 uIU/mL Normal 0.358-3.740 [facility] Comment on above: Performed By: #### F T3, TSH, AST, LIPID, ALT, BMP ####[facility] [address] [place] [address]Dr. William García TSH RANGE SEE BELOW Normal Comment on above: Result Comment: <0.3 4 UIU/ml HYPERTHYROID 0.34-5.60 UIU/ml EUTHYROID >5.60 UIU/ml HYPOTHYROID Performed By: #### F T3, TSH, AST, LIPID, ALT, BMP ####[facility] [address] [place], [place] [address]Dr. William García VITAMIN D 25 OHon 10-18-2021 VIT D 25-OH 25.2 ng/mL Normal The [facility] Comment on above: Performed By: #### F T4, VITAD #### [facility] [address] [address] [address] William García VIT D RANGES SEE BELOW Normal Comment on above: Result Comment: <20 ng/mL Vit D deficient 20 - <30 ng/mL Vit D insufficient 30 - 100 ng/mL Vit D sufficient >100 ng/mL Potential Toxicity Performed By: #### F T4, VITAD #### [facility] [address] [address] [address] William García FREE T3 [facility] 06-01-2021 Triiodothyronine (T3) Free 2.5 pg/mL Normal 2.0-4.4 Comment on above: Performed By: #### F T3LC #### [facility] [address] [address] [address] William García VIT D 25-OH [facility] 2021 Vitamin D, 25-Hydroxy 23.2 ng/mL Critically low 30.0-100.0 [facility] Comment on above: Result Comment: Melissa min D deficiency has been defined by the [place] of Medicine and an Endocrine Society practice guideline as a level of serum 25-OH vitamin D less than 20 ng/mL (1,2). The Endocrine Society went on to further define vitamin D insufficiency as a level between 21 and 29 ng/mL (2). 1. IOM ([place] of Medicine). 2010. Dietary reference intakes for calcium and D. [place]: The National Academies Press. 2. Ashley MF, Nicole NC, Mac ALMEIDA, et al. Evaluation, treatment, and prevention of vitamin D deficiency: an Endocrine Society clinical practice guideline. JCEM. 2011 Chuck; 96(7):1911-30. Performed By: #### V ITADLC #### [facility] [address] [place] [address] Dr. William García FREE T4on 05-31-2021 Free T4 [Mass/Vol] 0.96 ng/dL Normal 0.78-2.19 [facility] Comment on above: Performed By: #### F T4 #### [facility] [address] [place] [address] Dr. William García TSHon 05-31-2021 TSH 9.014 uIU/mL Critically high 0.470-4.680 [facility] Comment on above: Performed By: #### T SH #### [facility] [address] [place] [address] Dr. William García TSH RANGE SEE BELOW Normal The [facility] Comment on above: Result Comment: <0.3 4 UIU/ml HYPERTHYROID 0.34-5.60 UIU/ml EUTHYROID >5.60 UIU/ml HYPOTHYROID Performed By: #### T SH #### [facility] [address] [place] [address] Dr. William García Vital Signs Date Time Vital Sign Value Performing Clinician Facility 01-12-2025 10:06-0400 Body mass index (BMI) [Ratio] 22.11 kg/m2 Fay Pascal [employer]LL CLE[employer] Work Phone: [facility] 01-12-2025 10:06-0400 Body temperature 98.1 [degF] Fay Pascal [employer] CLE[employer] Work Phone: [facility] 01-12-2025 10:06-0400 Body weight 62.14 kg Fay Pascal [employer] CLE[employer] Work Phone: [facility] 01-12-2025 10:06-0400 Diastolic blood pressure 66 mm[Hg] Fay Pascal [employer] CLE[employer] Work Phone: [facility] 01-12-2025 10:06-0400 Heart rate 84 /min Fay Pascal [employer] CLE[employer] Work Phone: [facility] 01-12-2025 10:06-0400 Respiratory rate 18 /min Fay Pascal [employer] CLE[employer] Work Phone: [facility] 01-12-2025 10:06-0400 SaO2% (BldA) [Mass fraction] 99 % Fay Pascal [employer] CLE[employer] Work Phone: [facility] 01-12-2025 10:06-0400 Systolic blood pressure 94 mm[Hg] Fay Pascal [employer] CLE[employer]ER Work Phone: [facility] 09-29-2024 09:14-0400 Body height 167.6 cm Melyssajoel Dickerson DPM Work Phone: [facility] 09-29-2024 09:14-0400 Body mass index (BMI) [Ratio] 22.11 kg/m2 Melyssajoel Dickerson DPM Work Phone: [facility] 09-29-2024 09:14-0400 Body weight 62.14 kg Melyssa Jayla DPM Work Phone: [facility] 03-18-2024 09:17-0400 Body height 167.64 cm MD Bright Mccall II Work Phone: [facility] 03-18-2024 09:17-0400 Body mass index (BMI) [Ratio] 21.9 kg/m2 MD Bright Mccall II Work Phone: [facility] 03-18-2024 09:17-0400 Body weight 61.68 kg MD Bright Mccall II Work Phone: [facility] 02-19-2024 09:00-0400 Body height 167.6 cm Fay Pascal BELL CLE[employer]ER Work Phone: [facility] 02-19-2024 09:00-0400 Body mass index (BMI) [Ratio] 22.21 kg/m2 Fay Pascal [employer] CLE[employer] Work Phone: [facility] 02-19-2024 09:00-0400 Body temperature 98.1 [degF] Fay Aichholz [employer] CLE[employer]ER Work Phone: [facility] 02-19-2024 09:00-0400 Body weight 62.41 kg Fay Aichholz BELL CLE[employer]ER Work Phone: [facility] 02-19-2024 09:00-0400 Diastolic blood pressure 60 mm[Hg] Fay Aichholz BELL CLE[employer]ER Work Phone: [facility] 02-19-2024 09:00-0400 Heart rate 59 /min Fay Aichholz BELL CLEANER Work Phone: [facility] 02-19-2024 09:00-0400 Respiratory rate 19 /min Fay Aichholz BELL CLE[employer]ER Work Phone: [facility] 02-19-2024 09:00-0400 SaO2% (BldA) [Mass fraction] 98 % Fay Aichholz BELL CLE[employer]ER Work Phone: [facility] 02-19-2024 09:00-0400 Systolic blood pressure 88 mm[Hg] Fay Aichholz BELL CLE[employer]ER Work Phone: [facility] 01-07-2024 10:37-0400 Body height 167.6 cm Fay Aichholz BELL CLE[employer]ER Work Phone: [facility] 01-07-2024 10:37-0400 Body mass index (BMI) [Ratio] 21.82 kg/m2 Fay Aichholz [employer] CLE[employer]ER Work Phone: [facility] 01-07-2024 10:37-0400 Body temperature 97.5 [degF] Fay Aichholz BELL CLE[employer]ER Work Phone: [facility] 01-07-2024 10:37-0400 Body weight 61.33 kg Fay Aichholz BELL CLE[employer]ER Work Phone: [facility] 01-07-2024 10:37-0400 Diastolic blood pressure 76 mm[Hg] Fay Aichholz BELL CLE[employer]ER Work Phone: [facility] 01-07-2024 10:37-0400 Heart rate 61 /min Fay Aichholz BELL CLE[employer]ER Work Phone: [facility] 01-07-2024 10:37-0400 Respiratory rate 18 /min Fay Pascal BELL CLE[employer]ER Work Phone: [facility] 01-07-2024 10:37-0400 SaO2% (BldA) [Mass fraction] 98 % Fay Pascal BE[employer] CLE[employer]ER Work Phone: [facility] 01-07-2024 10:37-0400 Systolic blood pressure 102 mm[Hg] Fay Pascal BELL CLE[employer]ER Work Phone: [facility] 12-03-2023 17:43-0400 Body height 167.64 cm [facility] 12-03-2023 17:43-0400 Body mass index (BMI) [Ratio] 21.7 kg/m2 [facility] 12-03-2023 17:43-0400 Body temperature 97.8 [degF] [facility] 12-03-2023 17:43-0400 Body weight 60.89 kg [facility] 12-03-2023 17:43-0400 Diastolic blood pressure 88 mm[Hg] [facility] 12-03-2023 17:43-0400 Heart rate 86 /min [facility] 12-03-2023 17:43-0400 Respiratory rate 16 /min [facility] 12-03-2023 17:43-0400 SaO2% (BldA) [Mass fraction] 96 % [facility] 12-03-2023 17:43-0400 Systolic blood pressure 126 mm[Hg] [facility] 07-10-2023 14:08-0500 Blood Pressure Location Jose M SANTO [facility] 07-10-2023 14:08-0500 Diastolic blood pressure 70 mm[Hg] Jose M SANTO [facility] 07-10-2023 14:08-0500 Heart rate 74 /min Jose M SANTO [facility] 02-21-2024 14:08-0500 Respiratory rate 16 /min Jose M SANTO [facility] 07-10-2023 14:08-0500 Systolic blood pressure 114 mm[Hg] Jose M SANTO [facility] 06-27-2023 09:43-0500 Body height 167.6 cm Fay Federicaz BELL CLE[employer]ER Work Phone: [facility] 06-27-2023 09:43-0500 Body mass index (BMI) [Ratio] 21.89 kg/m2 Fay Aichholz BELL CLE[employer]ER Work Phone: [facility] 06-27-2023 09:43-0500 Body temperature 97.11 [degF] Fay Aichholz BELL CLE[employer]ER Work Phone: [facility] 06-27-2023 09:43-0500 Body weight 61.51 kg Fay Aichholz BELL CLE[employer]ER Work Phone: [facility] 06-27-2023 09:43-0500 Diastolic blood pressure 62 mm[Hg] Fay Aichholz BELL CLE[employer]ER Work Phone: [facility] 06-27-2023 09:43-0500 Heart rate 67 /min Fay Aichholz BELL CLE[employer]ER Work Phone: [facility] 06-27-2023 09:43-0500 Respiratory rate 18 /min Fay Aichholz BELL CLEANER Work Phone: [facility] 06-27-2023 09:43-0500 SaO2% (BldA) [Mass fraction] 97 % Fay Aichholz BELL CLE[employer]ER Work Phone: [facility] 06-27-2023 09:43-0500 Systolic blood pressure 98 mm[Hg] Fay Aichholz BELL CLE[employer]ER Work Phone: [facility] 07-30-2022 09:36-0400 Body height 167.6 cm Lorraine Christine PA-C Work Phone: [facility] 07-30-2022 09:36-0400 Body temperature 97.81 [degF] Lorraine Sankovic PA-C Work Phone: [facility] 07-30-2022 09:36-0400 Body weight 65.77 kg Lorraine Sankovic PA-C Work Phone: [facility] 07-30-2022 09:36-0400 Diastolic blood pressure 59 mm[Hg] Lorraine Sankovic PA-C Work Phone: [facility] 07-30-2022 09:36-0400 Heart rate 65 /min Lorraine Sankovic PA-C Work Phone: [facility] 07-30-2022 09:36-0400 SaO2% (BldA) [Mass fraction] 98 % Lorraine Sankovic PA-C Work Phone: [facility] 07-30-2022 09:36-0400 Systolic blood pressure 109 mm[Hg] Lorraine Garykovic PA-C Work Phone: [facility] 10-10-2021 10:30-0400 Body height 167.64 cm Panda Santos Other [facility] Other 10-10-2021 10:30-0400 Body mass index (BMI) [Ratio] 22.27 kg/m2 Panda Santos Other [facility] Other 10-10-2021 10:30-0400 Body temperature 96.4 [degF] Panda Santos Other [facility] Other 10-10-2021 10:30-0400 Body weight 62.6 kg Panda Santos Other [facility] Other 10-10-2021 10:30-0400 Diastolic blood pressure 68 mm[Hg] Panda Snatos Other [facility] Other 05-24-2022 10:30-0400 SaO2% (BldA) [Mass fraction] 99 % Panda Santos Other [facility] Other 10-10-2021 10:30-0400 Systolic blood pressure 103 mm[Hg] Panda Santos Other [facility] Other 07-18-2021 16:00-0500 Body height 167.64 cm Panda Hicks Other [facility] Other 07-18-2021 16:00-0500 Body mass index (BMI) [Ratio] 22.92 kg/m2 Panda Hicks Other [facility] Other 07-18-2021 16:00-0500 Body weight 64.41 kg Panda Fabiola Other [facility] Other 07-18-2021 16:00-0500 Diastolic blood pressure 67 mm[Hg] Panda Hicks Other [facility] Other 07-18-2021 16:00-0500 Systolic blood pressure 119 mm[Hg] Panda Hicks Other [facility] Other 06-15-2021 11:00-0500 Body height 167.64 cm Panda Fabiola Other [facility] Other 06-15-2021 11:00-0500 Body mass index (BMI) [Ratio] 22.43 kg/m2 Panda Hicks Other [facility] Other 06-15-2021 11:00-0500 Body weight 63.05 kg Panda Fabiola Other [facility] Other 02-23-2021 16:30-0400 Body height 167.64 cm Kelsey Pop Other [facility] Other 02-23-2021 16:30-0400 Body mass index (BMI) [Ratio] 22.59 kg/m2 Kelsey Pop Other [facility] Other 02-23-2021 16:30-0400 Body weight 63.5 kg Kelsey Pop Other [facility] Other Encounters Encounter Date Encounter Type Care Provider Facility Start: 01-12-2025 End: 01-12-2025 Clinisync Result Encounter Fay Pascal BE[employer] CLE[employer]ER Work Phone: [facility] External Department Unsolicited Start: 01-12-2025 End: 01-12-2025 Clinisync Result Encounter Fay Pascal BELL CLEANER Work Phone: [facility] External Department Unsolicited Start: 01-12-2025 End: 01-12-2025 Patient encounter procedure Fay Pascal BELL CLEANER Work Phone: [facility] Comment on above: Encounter for [...] Start: 12-08-2024 End: 12-09-2024 Refill Fay Pascal BELL CLE[employer]ER Work Phone: [facility] Comment on above: Hypothyroidism, adul t Start: 09-29-2024 End: 09-29-2024 Office outpatient visit 15 minutes Melyssa Dickerson DPM Work Phone: [facility] Comment on above: Dermatophytosis of n ail (Primary Dx); Dystrophic nail; Pain around toenail, left foot; Pain around toenail, right foot; Difficulty walking Start: 09-29-2024 End: 09-29-2024 ambulatory MELYSSA DICKERSON Not Available Start: 09-23-2024 End: 09-23-2024 ambulatory CHAIM JEWELL [facility] Start: 09-10-2024 End: 09-10-2024 Clinisync Result Encounter Generic External Data Provider [facility] External Department Unsolicited Start: 09-10-2024 End: 09-10-2024 Clinisync Result Encounter Generic External Data Provider [facility] External Department Unsolicited Start: 09-10-2024 End: 09-10-2024 ambulatory [facility] PASCAL [facility] Start: 09-10-2024 End: 09-10-2024 Subsequent hospital visit by physician Fay Marcelino NP Work Phone: [facility] Comment on above: Vaginal discharge Start: 09-08-2024 End: 09-08-2024 Orders Only Fay Pascal NP Work Phone: [facility] Comment on above: Rectal bleeding (Geraldine yesica Dx) Start: 08-27-2024 End: 08-27-2024 Refill Fay Pascal NP Work Phone: [facility] Comment on above: Hypothyroidism, adul t ([facility]) Start: 08-20-2024 End: 08-21-2024 Clinisync Result Encounter Generic External Data Provider [facility] External [facility] Unsolicited Start: 08-20-2024 End: 08-21-2024 Clinisync Result Encounter Generic External Data Provider [facility] External Department Unsolicited Start: 08-20-2024 End: 08-20-2024 ambulatory KALIN HARRISON [facility] Start: 08-20-2024 End: 08-20-2024 Subsequent hospital visit by physician Fay Marcelino NP Work Phone: [facility] Comment on above: Vaginal discharge Start: 06-09-2024 End: 06-09-2024 Refill Fay Pascal [employer] Work Phone: [facility] Comment on above: Hypothyroidism, adul t (CMS/HCC) (Primary Dx) Start: 04-23-2024 End: 04-23-2024 Refill Fay Naida BELL CLE[employer]ER Work Phone: [facility] Comment on above: Hypothyroidism, adul t (CMS/HCC) (Primary Dx) Start: 04-21-2024 End: 04-21-2024 Clinisync Result Encounter Fay Pascal BELL CLE[employer]ER Work Phone: [facility] External Department Unsolicited Start: 04-21-2024 End: 04-21-2024 Clinisync Result Encounter Fay Pascal BELL CLE[employer]ER Work Phone: [facility] External Department Unsolicited Start: 03-19-2024 End: 03-19-2024 Patient encounter procedure MD Bright Mccall II Work Phone: [facility] Work Phone: Start: 03-19-2024 End: 03-19-2024 ambulatory NON STAFF [facility] Work Phone: Start: 02-19-2024 End: 02-19-2024 Bamboo flowsheet Fay Pascal BELL CLEANER Work Phone: [facility] Start: 02-19-2024 End: 02-19-2024 Bamboo flowsheet Fay Pascal BELL CLE[employer]ER Work Phone: [facility] Start: 02-19-2024 End: 02-19-2024 Office outpatient visit 25 minutes Fay Pascal BELL CLE[employer]ER Work Phone: [facility] Comment on above: Hypothyroidism, adul t (CMS/HCC) (Primary Dx); Heart murmur; Obstructive sleep apnea syndrome Start: 02-19-2024 End: 02-19-2024 Refill Fay Naida BELL CLE[employer]ER Work Phone: [facility] Comment on above: Hypothyroidism, adul t (CMS/HCC) (Primary Dx) Start: 01-07-2024 End: 01-07-2024 Bamboo flowsheet Fay Naida BELL CLEANER Work Phone: [facility] Start: 01-07-2024 End: 01-07-2024 Bamboo flowsheet Fay Sosadexter BELL CLEANER Work Phone: [facility] Start: 01-07-2024 End: 01-07-2024 Patient encounter procedure Fay Sosadexter BELL CLEANER Work Phone: [facility] Comment on above: Encounter for subseq uent annual wellness visit (AWV) in Medicare patient (Primary Dx); Hypothyroidism, adult ([facility]); Encounter for screening mammogram for malignant neoplasm of breast; Vitamin D deficiency; Osteoporosis, 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[facility]); Heart murmur; Obstructive sleep apnea syndrome Start: 12-03-2023 End: 12-03-2023 Departed Referred CERTIFIED LEGAL SECRETARY SPECIALIST Christiane Wade Work Phone: [facility] [place] Work Phone: Start: 12-03-2023 End: 12-03-2023 ambulatory Christiane [facility] Work Phone: Start: 12-03-2023 End: 12-03-2023 Patient encounter procedure [facility] Work Phone: Start: 07-31-2023 End: 08-01-2023 ambulatory Jose M SANTO Facility: [facility] Start: 07-18-2023 End: 07-18-2023 ambulatory Phoenix Garner Facility:[facility] Start: 07-10-2023 End: 07-11-2023 ambulatory Jose M SANTO Facility:[facility] Start: 07-10-2023 End: 07-10-2023 Patient encounter procedure Jose M SANTO General Surgery [facility] Start: 06-27-2023 ambulatory Jose M SANTO Facility:[facility] Start: 06-27-2023 Bamboo flowsheet Fay Pascal BELL CLEANER Work Phone: [facility] Start: 06-27-2023 Bamboo flowsheet Fay Pascal BELL CLEANER Work Phone: [facility] Start: 06-27-2023 Clinisync Result Encounter Fay Pascal BELL CLEANER Work Phone: [facility] External Department Unsolicited Start: 06-27-2023 End: 06-27-2023 Office outpatient visit 25 minutes Fay Pascal BELL CLEANER Work Phone: [facility] Comment on above: Rectal bleeding (Geraldine yesica Dx); Hypothyroidism, adult (CMS/HCC); Vitamin D deficiency; BMI 21.0-21.9, adult; Heart murmur Start: 07-30-2022 End: 07-30-2022 ambulatory LORRAINE CHRISTINE Facility:[facility] Start: 07-30-2022 End: 07-30-2022 Patient encounter procedure Lorraine Christine DE-C Work Phone: [facility] Comment on above: Rectal discharge (Pr imary Dx) Start: 05-09-2022 End: 05-10-[address] PHOENIX GARNER Facility: Start: 10-18-2021 End: 10-19-[address] PHOENIX GARNER Facility:[facility] Start: 10-10-2021 End: 10-10-2021 ambulatory Panda Santos Other [facility] Other Start: 10-10-2021 Office outpatient vi sit 40 minutes Panda Santos [facility] Start: 07-18-2021 End: 07-18-2021 ambulatory Panda Hicks Other [facility] Other Start: 07-18-2021 Office outpatient vi sit 15 minutes Panda Hicks [facility] Start: 06-20-2021 End: 06-20-2021 ambulatory Panda Hicks Other [facility] Other Start: 06-20-2021 Telephone encounter Panda Hicks [facility] Start: 06-15-2021 End: 06-15-2021 ambulatory Panda Hicks Other [facility] Other Start: 06-15-2021 Office outpatient vi sit 25 minutes Panda Husseingriselda [facility] Start: 05-31-2021 End: 06-01-[address] PHOENIX GARNER Facility:[facility] Start: 05-02-2021 End: 05-02-2021 ambulatory Panda Fabiola Other [facility] Other Start: 05-02-2021 Telephone encounter Panda Hicks [facility] Start: 05-01-2021 End: 05-01-2021 ambulatory Padna Hicks Other [facility] Other Start: 05-01-2021 Telephone encounter Panda Hicks [facility] Start: 04-10-2021 End: 04-10-2021 ambulatory Panda Hicks Other [facility] Other Start: 04-10-2021 Telephone encounter Panda Hicks [facility] Start: 03-20-2021 Telephone encounter Panda Hicks [facility] Start: 02-23-2021 Office outpatient vi sit 15 minutes Kelsey Pop [facility] Procedures Date Procedure Procedure Detail Performing Clinician Start: 01-12-2025 ALL CBC WITH AUTO DIFF Fay Pascal BELL CLE[employer]ER Work Phone: Start: 01-12-2025 MLR HEMOGLOBIN A1C Fay Pascal BELL CLEANER Work Phone: Start: 09-10-2024 Iadna aleksandr species direct probe tq Kalin Chantel CERTIFIED LEGAL SECRETARY SPECIALIST - CNM Work Phone: Start: 09-10-2024 MHPT VAGINITIS DNA PROBE Generic Externa l Data Provider Start: 08-20-2024 MHPT VAGINITIS DNA PROBE Generic Externa l Data Provider Start: 05-11-2024 Mammography Fay Chadmariferdexter BELL CLEANER Work Phone: Start: 04-21-2024 ALL THYROID STIM HORMONE Fay Chadmariferdexter N P Work Phone: Start: 03-19-2024 Plain radiography of pelvis MD Bright paez II Work Phone: Start: 03-19-2024 X-ray of right knee, four views MD Stan Mccall II Work Phone: Start: 07-31-2023 Colonoscopy Fay Naida BELL CLEANER Work Phone: Start: 06-27-2023 ALL CBC WITH AUTO DIFF Fay Naida BELL CLEANER Work Phone: Start: 05-10-2023 Mammography Fay Chadmariferdexter BELL CLEANER Work Phone: Start: 04-03-2021 Colonoscopy Fay Chadmariferdexter BELL CLEANER Work Phone: Start: 04-03-2021 Colonoscopy Jose M [...] 07-30-2033 Screening for malignant neoplasm of colon [facility] Start: 04-03-2031 Screening for malignant neoplasm of colon [facility] Start: 2030 Respiratory Syncytial Virus (RSV) or age 60 yrs+ (1 - 1-dose 75+ series) Respiratory Syncytial Virus (RSV) or age 60 yrs+ (1 - 1-dose 75+ series) [facility] Start: 01-17-2026 End: 01-17-2026 Patient encounter procedure 01/17/2026 10:30 AM EDT Office Visit [facility] [address] [place] [phone] Fay Pascal, DELMY [address] [place] [phone] [facility] Start: 01-12-2026 Medicare Annual Wellness (AWV) Medicare Annual Wellness (AWV) [facility] Start: 08-20-2025 Depression Screen Depression Screen [facility] Start: 05-11-2025 End: 01-12-2026 DXA Skeletal system Views for bone density DEXA bone density Imaging Routine Osteoporosis, postmenopausal Expected: 05/11/2025 (Approximate), Expires: 01/12/2026 [facility] Comment on above: Expected: 05/11/2025 (Approximate), Expi res: 01/12/2026 Start: 05-11-2025 End: 03-14-2026 MG Breast - bilateral Screening Bilateral screening mammogram Imaging Routine Encounter for screening mammogram for malignant neoplasm of breast Expected: 05/11/2025 (Approximate), Expires: 03/14/2026 [facility] Work Phone: Comment on above: Expected: 05/11/2025 (Approximate), Expi res: 03/14/2026 Start: 05-11-2025 Screening for malignant neoplasm of breast Mammogram [facility] Start: 04-13-2025 End: 04-13-2025 Patient encounter procedure 04/13/2025 9:40 AM EST [facility] [address] [place] [phone] aFy Pascal, DELMY [address] [place] [phone] [facility] Start: 01-12-2025 End: 01-12-2026 25-hydroxyvitamin D3 [Mass/volume] in Serum or Plasma Vitamin D 25 hydroxy Lab Routine Vitamin D deficiency Expected: 01/12/2025 (Approximate), Expires: 01/12/2026 [facility] Comment on above: Expected: 01/12/2025 (Approximate), Expi res: 01/12/2026 Start: 01-12-2025 End: 01-12-2026 CBC W Auto Differential panel - Blood CBC and differential Lab Routine Obstructive sleep apnea syndrome Hypothyroidism, adult Expected: 01/12/2025 (Approximate), Expires: 01/12/2026 [facility] Comment on above: Expected: 01/12/2025 (Approximate), Expi res: 01/12/2026 Start: 01-12-2025 End: 01-12-2026 Comprehensive metabolic 2000 panel - Serum or Plasma Comprehensive metabolic panel Lab Routine Dyslipidemia Osteoporosis, postmenopausal Vitamin D deficiency Prediabetes Hypothyroidism, adult Expected: 01/12/2025 (Approximate), Expires: 01/12/2026 [facility] Comment on above: Expected: 01/12/2025 (Approximate), Expi res: 01/12/2026 Start: 01-12-2025 End: 01-12-2027 Echocardiogram 2D complete Echocardiogram 2D complete Echocardiography Routine Heart murmur Nonrheumatic aortic valve insufficiency Expected: 01/12/2025 (Approximate), Expires: 01/12/2027 [facility] Comment on above: Expected: 01/12/2025 (Approximate), Expi res: 01/12/2027 Start: 01-12-2025 End: 01-12-2026 Hemoglobin A1c/Hemoglobin.total in Blood Hemoglobin A1c Lab Routine Prediabetes Expected: 01/12/2025 (Approximate), Expires: 01/12/2026 [facility] Comment on above: Expected: 01/12/2025 (Approximate), Expi res: 01/12/2026 Start: 01-12-2025 End: 01-12-2026 Lipid 1996 panel - Serum or Plasma Lipid panel Lab Routine Dyslipidemia Expected: 01/12/2025 (Approximate), Expires: 01/12/2026 [facility] Comment on above: Expected: 01/12/2025 (Approximate), Expi res: 01/12/2026 Start: 01-12-2025 End: 01-12-2026 Thyrotropin [Units/volume] in Serum or Plasma TSH Lab Routine Hypothyroidism, adult Expected: 01/12/2025 (Approximate), Expires: 01/12/2026 [facility] Comment on above: Expected: 01/12/2025 (Approximate), [...] procedure 01/12/2025 10:00 AM EDT Office Visit [facility] [address] [place] [address] Fay Pascal NP [address] [place] [address] [facility] Start: 01-06-2025 Medicare Annual Wellness (AWV) Medicare Annual Wellness (AWV) [facility] Start: 12-18-2024 Influenza vaccination Flu vaccine (Season Ended) [facility] Start: 09-29-2024 End: 09-29-2024 Patient encounter procedure 09/29/2024 9:30 AM EDT Procedure Visit [facility] [address] [place] [phone] Melyssa Dickerson, DPM [address] [place] [address] [facility] Start: 08-18-2024 Annual Wellness Visit (Medicare) Annual Wellness Visit (Medicare) [facility] Start: 07-22-2024 End: 04-23-2025 Thyrotropin [Units/volume] in Serum or Plasma TSH Lab Routine Hypothyroidism, adult ([facility]) Expected: 07/22/2024 (Approximate), Expires: 04/23/2025 [facility] Work Phone: Comment on above: Expected: 07/22/2024 (Approximate), Expi res: 04/23/2025 Start: 07-22-2024 End: 04-23-2025 Thyroxine (T4) free [Mass/volume] in Serum or Plasma T4, free Lab Routine Hypothyroidism, adult ([facility]) Expected: 07/22/2024 (Approximate), Expires: 04/23/2025 [facility] Comment on above: Expected: 07/22/2024 (Approximate), Expi res: 04/23/2025 Start: 06-22-2024 End: 06-22-2024 Patient encounter procedure 06/22/2024 9:00 AM EST Office Visit [facility] [address] [place] [address] Fay Pascal, DELMY [address] [place] [address] [facility] Start: 05-10-2024 Screening for malignant neoplasm of breast [facility] Start: 05-08-2024 End: 03-08-2025 MG Breast - bilateral Screening Bilateral screening mammogram Imaging Routine Encounter for screening mammogram for malignant neoplasm of breast Expected: 05/08/2024 (Approximate), Expires: 03/08/2025 [facility] Comment on above: Expected: 05/08/2024 (Approximate), Expi res: 03/08/2025 Start: 03-19-2024 Plain radiography of pelvis XR pelvis 1-2V [facility] Start: 03-19-2024 X-ray of right knee, four views XR knee RT 4V* [facility] Start: 03-19-2024 XR Knee - right 4 Views [facility] Start: 03-19-2024 XR Pelvis 1 or 2 Views [facility] Start: 02-19-2024 End: 02-19-2024 Patient encounter procedure [facility] Comment on above: Arrived Start: 01-19-2024 COVID-19 Vaccine ( season) COVID-19 Vaccine () [facility] Start: 01-07-2024 End: 01-06-2026 Echocardiogram 2D complete Echocardiogram 2D complete Echocardiography Routine Heart murmur Expected: 01/07/2024 (Approximate), Expires: 01/06/2026 [facility] Comment on above: Expected: 01/07/2024 (Approximate), Expi res: 01/06/2026 Start: 01-07-2024 End: 01-06-2025 Thyrotropin [Units/volume] in Serum or Plasma TSH Lab Routine Hypothyroidism, adult (CMS/HCC) Expected: 01/07/2024 (Approximate), Expires: 01/06/2025 [facility] Work Phone: Comment on above: Expected: 01/07/2024 (Approximate), Expi res: 01/06/2025 Start: 01-07-2024 End: 01-06-2025 Thyroxine (T4) free [Mass/volume] in Serum or Plasma T4, free Lab Routine Hypothyroidism, adult (CMS/HCC) Expected: 01/07/2024 (Approximate), Expires: 01/06/2025 [facility] Comment on above: Expected: 01/07/2024 (Approximate), Expi res: 01/06/2025 Start: 01-07-2024 End: 01-07-2024 Patient encounter procedure 01/07/2024 10:30 AM EDT Office Visit [facility] [address] [place] [address] Fay Pascal NP [address] [place] [address] Hypothyroidism, adult (CMS/HCC) (Primary Dx); Encounter for screening mammogram for malignant neoplasm of breast [facility] Comment on above: Hypothyroidism, adult (CMS/HCC) (Primary Dx); Encounter for screening mammogram for malignant neoplasm of breast Start: 01-04-2024 Medicare Annual Wellness (AWV) Medicare Annual Wellness (AWV) [facility] Start: 12-03-2023 Bacteria identified in Urine by Culture [facility] Start: 07-31-2023 End: 07-31-2023 Patient encounter procedure 07/31/2023 9:20 AM EDT Office Visit [facility] [address] [place] [address] Fay Pascal NP [address] [place] [address] [facility] Start: 06-27-2023 End: 06-27-2024 25-hydroxyvitamin D3 [Mass/volume] in Serum or Plasma Vitamin D 25 hydroxy Lab Routine Vitamin D deficiency Expected: 06/27/2023 (Approximate), Expires: 06/27/2024 [facility] Work Phone: Comment on above: Expected: 06/27/2023 (Approximate), Expi res: 06/27/2024 Start: 06-27-2023 End: 06-27-2024 CBC W Auto Differential panel - Blood CBC and differential Lab Routine Rectal bleeding Expected: 06/27/2023 (Approximate), Expires: 06/27/2024 [facility] Comment on above: Expected: 06/27/2023 (Approximate), Expi res: 06/27/2024 Start: 06-27-2023 End: 06-27-2024 Comprehensive metabolic 2000 panel - Serum or Plasma Comprehensive metabolic panel Lab Routine Hypothyroidism, adult (CMS/HCC) Vitamin D deficiency Rectal bleeding Expected: 06/27/2023 (Approximate), Expires: 06/27/2024 [facility] Comment on above: Expected: 06/27/2023 (Approximate), Expi res: 06/27/2024 Start: 06-27-2023 End: 06-27-2024 Erythrocyte sedimentation rate Sedimentation rate, automated Lab Routine Rectal bleeding Expected: 06/27/2023 (Approximate), Expires: 06/27/2024 [facility] Comment on above: Expected: 06/27/2023 (Approximate), Expi res: 06/27/2024 Start: 06-27-2023 End: 06-27-2024 Ferritin [Mass/volume] in Serum or Plasma Ferritin Lab Routine Rectal bleeding Expected: 06/27/2023 (Approximate), Expires: 06/27/2024 [facility] Comment on above: Expected: 06/27/2023 (Approximate), Expi res: 06/27/2024 Start: 06-27-2023 End: 06-27-2024 Iron and Iron binding capacity panel - Serum or Plasma Iron level Lab Routine Rectal bleeding Expected: 06/27/2023 (Approximate), Expires: 06/27/2024 [facility] Comment on above: Expected: 06/27/2023 (Approximate), Expi res: 06/27/2024 Start: 06-27-2023 End: 06-27-2024 Thyrotropin [Units/volume] in Serum or Plasma TSH Lab Routine Hypothyroidism, adult ([facility]) Expected: 06/27/2023 (Approximate), Expires: 06/27/2024 [facility] Comment on above: Expected: 06/27/2023 (Approximate), Expi res: 06/27/2024 Start: 06-27-2023 End: 06-27-2024 Thyroxine (T4) free [Mass/volume] in Serum or Plasma T4, free Lab Routine Hypothyroidism, adult ([facility]) Expected: 06/27/2023 (Approximate), Expires: 06/27/2024 [facility] Comment on above: Expected: 06/27/2023 (Approximate), Expi res: 06/27/2024 Start: 06-27-2023 End: 06-27-2024 Triiodothyronine (T3) Free [Mass/volume] in Serum or Plasma T3, free Lab Routine Hypothyroidism, adult ([facility]) Expected: 06/27/2023 (Approximate), Expires: 06/27/2024 [facility] Comment on above: Expected: 06/27/2023 (Approximate), Expi res: 06/27/2024 Start: 06-27-2023 End: 06-27-2023 Patient encounter procedure 06/27/2023 9:40 AM EST Office Visit [facility] [address] [place] [address] Fay Pascal NP [address] [place] [address] Hypothyroidism, adult (CMS/HCC) (Primary Dx); Vitamin D deficiency [facility] Comment on above: Hypothyroidism, adult (CMS/HCC) (Primary Dx); Vitamin D deficiency Start: 01-18-2023 Influenza vaccination Influenza Vaccine (#1) [facility] Start: 05-20-2022 ADVANCE DIRECTIVE DISCUSSION ADVANCE DIRECTIVE DISCUSSION [facility] Start: 05-20-2022 DEPRESSION ASSESSMENT DEPRESSION ASSESSMENT [facility] Start: 01-18-2022 Influenza vaccination INFLUENZA (#1) [facility] Start: 2020 BONE DENSITY BONE DENSITY [facility] Start: 2020 PNEUMOCOCCAL: 65+ (1 - PCV) PNEUMOCOCCAL: 65+ (1 - PCV) [facility] Start: 03-20-2018 Medicare Annual Wellness (AWV) Medicare Annual Wellness (AWV) [facility] Start: 2010 Screening for osteoporosis DEXA (modify frequency per FRAX score) [facility] Start: 2005 Shingles vaccine (1 of 2) Shingles vaccine (1 of 2) [facility] Start: 2005 SHINGRIX VACCINE (1 of 2) SHINGRIX VACCINE (1 of 2) [facility] Start: 2000 COLOGUARD (FIT-DNA) COLOGUARD (FIT-DNA) [facility] Start: 2000 Colonoscopy COLONOSCOPY [facility] Start: 2000 COLORECTAL CANCER SCREENING COLORECTAL CANCER SCREENING [facility] Start: [address] COLONOGRAPHY [facility] Start: 2000 DIABETES SCREEN DIABETES SCREEN [facility] Start: 2000 FECAL OCCULT BLOOD FECAL OCCULT BLOOD [facility] Start: 2000 LIPID SCREEN LIPID SCREEN [facility] Start: 2000 Screening for malignant neoplasm of colon [facility] Start: 2000 SIGMOIDOSCOPY SIGMOIDOSCOPY [facility] Start: 1995 Lipid panel Lipids [facility] Start: 1995 Mammography MAMMOGRAM [facility] Start: 1974 DTaP/Tdap/Td vaccine (1 - Tdap) DTaP/Tdap/Td vaccine (1 - Tdap) [facility] Start: 1974 Urine microalbumin profile DTAP,TDAP,TD (1 - Tdap) [facility] Start: 1973 HEPATITIS C SCREENING HEPATITIS C SCREENING [facility] Start: 1973 Hepatitis C screening Hepatitis C screen [facility] Start: 1967 Depression Screen Depression Screen [facility] Start: 01-15-1956 COVID-19 VACCINE (#1) COVID-19 VACCINE (#1) [facility] Start: 1955 Screening for malignant neoplasm of colon [facility] End: 08-20-2024 Vaginitis DNA Probe [facility] Comment on above: 1 Occurrences starting 08/20/2024 until 08/20/2024 Immunizations Immunization Date Immunization Notes Care Provider Marycarmen alanis 02-27-2022 Pneumococcal Conjuga te PCV 20 Fay Pascal [employer] Work Phone: [facility] 02-23-2021 Kenalog -40 mg Kelsey mckee Other [facility] Other 09-28-2020 Kenalog -40 mg Kelsey mckee Other [facility] Other 09-28-2020 Gel-One Kelsey dior Other [facility] Other 07-15-2014 pneumococcal conjuga te vaccine, 13 valent Fay Pascal [employer] Work Phone: [facility] 08-18-2009 pneumococcal polysaccharide vaccine, 23 valent Fay Naida [employer] Work Phone: [facility] NEGATED: Highlighted row has not occurred!07-10-2023 influenza virus vaccine, unspecified formulation Jose M SANTO [facility] [employer] Payers Date Payer Category Payer Self-pay [id number] 2020 Medicare [id number] 2020 Private Health Insurance [id number] 1959 Medicare [id number] 2.1 [id number] 1959 Private Health Insurance CLI [id number] 1955 Unknown [id number] 2.16.84 [id number] 1955 Unknown [id number] 2.16.84 [id number] 1955 Unknown [id number] 2.16.84 [id number] 1955 Unknown [id number] 2.16.8 [id number] 1955 Unknown [id number] 2.16.8 [id number] 1955 Unknown [id number] 2.16.8 [id number] 1955 Unknown [id number] 2.16.8 [id number] 1955 Unknown [id number] 2.16.8 [id number] 1955 Unknown [id number] 2.16.84 [id number] 1955 Unknown [id number] 2.16.84 [id number] Unknown [id number] 2.16.8 [id number] Unknown [id number] 2.16.8 [id number] Unknown [id number] 2.16.8 [id number] Social History Date Type Detail Facility Start: 06-26-2023 End: 01-12-2025 Sex Assigned At [facility] Start: 07-30-2022 End: 06-25-2023 Tobacco smoking status AKIS Never smoked tobacco [facility] Start: 07-30-2022 End: 06-25-2023 Tobacco use and exposure Smokeless tobacco non-user [facility] Start: 07-30-2022 End: 01-12-2025 Alcohol intake Ex-drinker (finding) [facility] Start: 1955 Sex Assigned At Not on file [facility] Start: 06-26-2023 End: 01-12-2025 History of Social function [facility] Within the last year , have you been afraid of your partner or ex-partner? No [facility] Attends [employer] Not on file [facility] Are [...] Healthcare Start: 04-03-2021 Tobacco smoking stat us AKIS Ex-smoker (finding) [facility] Start: 1955 Sex Assigned At Female F [facility] Start: 08-20-2024 End: 09-10-2024 Alcoholic beverage intake Current drinker of alcohol (finding) Rowdy Cassidy [facility] Start: 08-20-2024 Alcohol Comment occ Rowdy junior [facility] Start: 08-18-2024 Sex Female (finding) Rowdy scott [facility] Functional Status Date Assessment Result Facility 01-12-2025 Patient Health Quest ionnaire 2 item (PHQ-2) [Reported] [facility] 07-10-2023 Functional Status N/A General Pack alexus Soria [facility] Clinical Notes 02-23-2021 to 01-12-2025 Fay [...] manages your RIVERA: documented in this encounter [facility] 01-12-2025 Instructions Fay Pascal NP - 01/12/2025 10:00 AM EDT Get labs fasting Mammogram and bone density in April 2025 Will order ultrasound of heart, I will fax order [facility] they should call you documented in this encounter [facility] 09-29-2024 History of Present illness Narrative [...] Melyssa Dickerson DPM documented in this encounter [facility] 09-29-2024 Instructions Melyssa Dickerson DPM - 09/29/2024 9:30 AM EDT Topical care measures as noted documented in this encounter [facility] 09-23-2024 Note Subjective Patient ID: Alesha [...] (Oral) Physical Exam Exam conducted with a actuary present. Constitutional: Appearance: Normal appearance. She is [...] No follow-ups on file. Marva Schaefer, MS4 [facility] The above patient was seen with the medical student and the physical exam was done by myself with the student present, assisting and observing. The plan was discussed in detail with the student and the patient. [facility] 09-14-2024 Note Received referral fo r rectal bleeding, called patient to schedule an appt with Dr. Jewell. Patient states she was unaware that referral was being sent. She will call back to schedule when ready. Referral scanned in. [facility] 02-19-2024 History of Present illness Narrative Associated [...] swets- she was reading an article on [employer] about the medication causing night sweats could [...] Basal cell carcinoma 06/27/2023 Childbirth x3 Dyslipidemia ([facility]) 06/27/2023 Gastroesophageal reflux disease 06/27/2023 Hypothyroidism, adult ([facility]) 06/27/2023 Lichenification and lichen simplex chronicus 06/27/2023 Osteoarthritis 06/27/2023 Osteoporosis, 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[facility]) 06/27/2023 Prediabetes 06/27/2023 Primary osteoarthritis of [...] not wear PAP documented in this encounter [facility] 01-07-2024 History of Present illness Narrative [...] Basal cell carcinoma 06/27/2023 Childbirth x3 Dyslipidemia ([facility]) 06/27/2023 Gastroesophageal reflux disease 06/27/2023 Hypothyroidism, adult ([facility]) 06/27/2023 Lichenification and lichen simplex chronicus 06/27/2023 Osteoarthritis 06/27/2023 Osteoporosis, 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[facility]) 06/27/2023 Prediabetes 06/27/2023 Primary osteoarthritis of [...] yearly and prn documented in this encounter [facility] 07-10-2023 Note Chief Complaint consultation for [...] 50,000 intl units (1.25 mg) oral capsule, [id number] International_Unit= 1 cap(s), Oral, qWeek Allergies No Known Allergies No Known Medication Allergies Social History Alcohol - Denies Alcohol Use, 07/10/2023 Substance Abuse - Denies Substance Abuse, 07/10/2023 Tobacco Never (less than 100 in lifetime) Tobacco Use:. Never Smokeless Tobacco Use:., 07/10/2023 Family History Liver cancer: Brother. Primary yeimi (more content not included)... 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[facility]) 06/27/2023 Prediabetes 06/27/2023 Primary osteoarthritis of [...] medication and cologuard documented in this encounter [facility] 07-30-2022 Instructions Lorraine Christine PA-C - [...] if no improvement documented in this encounter [facility] 07-30-2022 History and physical note COLORECTAL SURGERY New/Consult Alesha Bonilla 67 year old Chief Complaint: mucous drainage History of Present Illness: Alesha Bonilla is a 67 year old female coming to the [facility] office in regards to mucous drainage/leakage.Patient notes clear sticky discharge that is odorous after bowel movement and/or shower. She has a history of issues with diarrhea in the past ( 2 years ago). In which a CT scan,MRI and colonoscopy ( brought to front end manager to be scanned in) were completed [...] was otherwise normal. Patient tolerated procedure well. Energy Crop Farmer present: Yes, Kristin Fuentes MA Diagnostic tests reviewed for today's visit: Colonoscopy Report CT imaging MRI imaging All outside imaging and records were reviewed with the patient during consultation. Assessment Assessment and Plan: Alesha Bonilla is a 67 year old female who comes to [facility] for rectal mucous/ discharge. Upon [...] which included preparing to see the patient, [id number] patient care, completing clinical documentation, obtaining and/or reviewing separately obtained history, performing a medically appropriate examination, counseling and educating the patient/family/caregiver, and ordering medications, tests, or procedures. documented in this encounter [facility] 10-10-2021 Evaluation note Encounter Date Diagnosis Assessment [...] Other 1 hour and 10 minutes spent [id number] with the patient, the majority in counseling and education [facility] Other 03-01-2022 Evaluation note* Encounter Date Diagnosis Assessment Notes Treatment Notes Treatment Clinical Notes Jul, Irritable bowel syndrome with diarrhea (ICD-10 - K58.0) Jul, GERD (gastroesophageal reflux disease) (ICD-10 - K21.9) Jul, Liver hemangioma (ICD-10 - D18.03) Jul, Other REASSURANCE REPEAT RUQ U/S IN 4-6 MONTHS (IN RECALL) [facility] Other 02-01-2022 Evaluation note* Encounter Date Diagnosis Assessment Notes Treatment Notes Treatment Clinical Notes Jun, Liver lesion (ICD-10 - K76.9) [facility] Other 01-27-2022 Evaluation note* Encounter Date Diagnosis [...] without obstruction or gangrene (ICD-10 - K43.9) [facility] Other 11-22-2021 Evaluation note* Encounter Date Diagnosis Assessment Notes Treatment Notes Treatment Clinical Notes Mar, Diarrhea (ICD-10 - R19.7) Mar, Weight loss (ICD-10 - R63.4) [facility] Other 11-01-2021 Evaluation note* Encounter Date Diagnosis Assessment Notes Treatment Notes Treatment Clinical Notes Mar, Abdominal cramping (ICD-10 - R10.9) Mar, Diarrhea (ICD-10 - R19.7) [facility] Other 10-07-2021 Evaluation note* Encounter Date Diagnosis [...] Feb, Left hip pain (ICD-10 - M25.552) [facility] Other Evaluation + Plan note No data available for this section General Surgery [facility] Evaluation noteNo InformationNort Vudu Other Evaluation note* Diagnosis Rectal discharge- Primary Other symptoms involving digestive system documented [facility] Diagnosis Rectal bleeding- Primary Hemorrhage of rectum and anus Hypothyroidism, adult (CMS/HCC) Other specified acquired hypothyroidism Vitamin D deficiency BMI 21.0-21.9, adult Heart murmur Undiagnosed cardiac murmurs documented in this encounter [facility]* Diagnosis Onset Date Resolution Status Dysuria noneactive [facility] Work Phone: Evaluation note* Diagnosis Hypothyroidism, adult (CMS/HCC)- Primary Other specified acquired hypothyroidism Heart murmur Undiagnosed cardiac murmurs Obstructive sleep apnea syndrome Obstructive sleep apnea (adult) (pediatric) documented in this encounter [facility]* Diagnosis Hypothyroidism, adult ([facility])- Primary Other specified acquired hypothyroidism documented in this encounter [facility] noteNo assessment information [facility]Mem[facility] Work Phone: Evaluation note* Diagnosis Onset Date Resolution Status Deformity of right knee joint acute Primary osteoarthritis of right knee acute [facility] Work Phone: Evaluation note* Diagnosis Rectal bleeding- Primary Hemorrhage of rectum and anus Hypothyroidism, adult ([facility]) Other specified acquired hypothyroidism Vitamin D deficiency BMI 21.0-21.9, adult Heart murmur Undiagnosed cardiac murmurs Encounter for subsequent annual wellness visit (AWV) in Medicare patient- Primary Hypothyroidism, adult ([facility]) Other specified acquired hypothyroidism Encounter for screening mammogram for malignant neoplasm of breast Vitamin D deficiency Osteoporosis, 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[facility]) Senile osteoporosis Heart murmur Undiagnosed cardiac murmurs Obstructive sleep apnea syndrome Obstructive sleep apnea (adult) (pediatric) Hypothyroidism, adult ([facility])- Primary Other specified acquired hypothyroidism Heart murmur Undiagnosed cardiac murmurs Obstructive sleep apnea syndrome Obstructive sleep apnea (adult) (pediatric) Hypothyroidism, adult ([facility])- Primary Other specified acquired hypothyroidism documented in this encounter [facility]* Diagnosis Encounter for subsequent annual wellness visit (AWV) in Medicare patient- Primary Hypothyroidism, adult ([facility]) Other specified acquired hypothyroidism Encounter for screening mammogram for malignant neoplasm of breast Vitamin D deficiency Osteoporosis, 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[facility]) Senile osteoporosis Heart murmur Undiagnosed cardiac murmurs Obstructive sleep apnea syndrome Obstructive sleep apnea (adult) (pediatric) documented in this encounter [facility]* Diagnosis Rectal bleeding- Primary Hemorrhage of rectum and anus Hypothyroidism, adult ([facility]) Other specified acquired hypothyroidism Vitamin D deficiency BMI 21.0-21.9, adult Heart murmur Undiagnosed cardiac murmurs Encounter for subsequent annual wellness visit (AWV) in Medicare patient- Primary Hypothyroidism, adult ([facility]) Other specified acquired hypothyroidism Encounter for screening mammogram for malignant neoplasm of breast Vitamin D deficiency Osteoporosis, 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[facility]) Senile osteoporosis Heart murmur Undiagnosed cardiac murmurs Obstructive sleep apnea syndrome Obstructive sleep apnea (adult) (pediatric) Hypothyroidism, adult ([facility])- Primary Other specified acquired hypothyroidism Heart murmur Undiagnosed cardiac murmurs Obstructive sleep apnea syndrome Obstructive sleep apnea (adult) (pediatric) Hypothyroidism, adult ([facility])- Primary Other specified acquired hypothyroidism documented in this encounter [facility]* Diagnosis Vaginal discharge Leukorrhea, not specified as infective documented in this encounter [facility]* Diagnosis Rectal bleeding- Primary Hemorrhage of rectum and anus Hypothyroidism, adult ([facility]) Other specified acquired hypothyroidism Vitamin D deficiency BMI 21.0-21.9, adult Heart murmur Undiagnosed cardiac murmurs Encounter for subsequent annual wellness visit (AWV) in Medicare patient- Primary Hypothyroidism, adult ([facility]) Other specified acquired hypothyroidism Encounter for screening mammogram for malignant neoplasm of breast Vitamin D deficiency Osteoporosis, 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[facility]) Senile osteoporosis Heart murmur Undiagnosed cardiac murmurs Obstructive sleep apnea syndrome Obstructive sleep apnea (adult) (pediatric) Hypothyroidism, adult ([facility])- Primary Other specified acquired hypothyroidism Heart murmur Undiagnosed cardiac murmurs Obstructive sleep apnea syndrome Obstructive sleep apnea (adult) (pediatric) Hypothyroidism, adult ([facility]) Other specified acquired hypothyroidism documented in this encounter [facility]* Diagnosis Rectal bleeding- Primary Hemorrhage of rectum and anus Hypothyroidism, adult ([facility]) Other specified acquired hypothyroidism Vitamin D deficiency BMI 21.0-21.9, adult Heart murmur Undiagnosed cardiac murmurs Encounter for subsequent annual wellness visit (AWV) in Medicare patient- Primary Hypothyroidism, adult ([facility]) Other specified acquired hypothyroidism Encounter for screening mammogram for malignant neoplasm of breast Vitamin D deficiency Osteoporosis, 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[facility]) Senile osteoporosis Heart murmur Undiagnosed cardiac murmurs Obstructive sleep apnea syndrome Obstructive sleep apnea (adult) (pediatric) Hypothyroidism, adult ([facility])- Primary Other specified acquired hypothyroidism Heart murmur Undiagnosed cardiac murmurs Obstructive sleep apnea syndrome Obstructive sleep apnea (adult) (pediatric) Rectal bleeding- Primary Hemorrhage of rectum and anus documented in this encounter [facility]* Diagnosis Vaginal discharge Leukorrhea, not specified as infective documented in this encounter [facility]* Diagnosis Rectal bleeding- Primary Hemorrhage of rectum and anus Hypothyroidism, adult ([facility]) Other specified acquired hypothyroidism Vitamin D deficiency BMI 21.0-21.9, adult Heart murmur Undiagnosed cardiac murmurs Encounter for subsequent annual wellness visit (AWV) in Medicare patient- Primary Hypothyroidism, adult ([facility]) Other specified acquired hypothyroidism Encounter for screening mammogram for malignant neoplasm of breast Vitamin D deficiency Osteoporosis, 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[facility]) Senile osteoporosis Heart murmur Undiagnosed cardiac murmurs Obstructive sleep apnea syndrome Obstructive sleep apnea (adult) (pediatric) Hypothyroidism, adult ([facility])- Primary Other specified acquired hypothyroidism Heart murmur Undiagnosed cardiac murmurs Obstructive sleep apnea syndrome Obstructive sleep apnea (adult) (pediatric) Dermatophytosis of nail- Primary Dystrophic nail Other specified disease of nail Pain around toenail, left foot Pain around toenail, right foot Difficulty walking Difficulty in walking documented in this encounter [facility] HealthcareEvaluation note* Diagnosis Rectal bleeding- Primary [...] specified acquired hypothyroidism documented in this encounter [facility]Evaluation note* Diagnosis Rectal bleeding- Primary [...] removal from lip Hospitalization History see above [facility] Other History general Narrative - Reported* Type Description Date Medical History high cholesterol Medical History Hypothyroidism Medical History obstructive sleep apnea Surgical History meniscus repair Surgical History rotator cuff repair Surgical History lipoma removed from right shoul neela Surgical History skin cancer removal from lip Hospitalization History see above [facility] Other Hospital Discharge instructions No data available for this section General Surgery [facility] Progress note No data available for this section General Surgery [facility] Reason for referral (narrative)* Consultation (Routine) - Pending Review Specialty Diagnoses / Procedures Referred By Seb díaz Referred To Contact General Surgery Diagnoses Rectal bleeding Procedures SD OFFICE/OUTPATIENT NEW HIGH MDM 60 MINUTES Fay Pascal NP [address] [place] [address] Jose M Santo MD [address] [place], [place] [address], [address] [place] [address] Referral ID Status Reason Start Date Expiration Date Visits Requested Visits Authorized [id number] Pending Review Specialty Services Required 06/27/2023 12/24/2023 [...] complete Fay Pascal, DELMY [address] [place] [address] [facility] [address] [place] [address] Referral ID Status Reason Start Date Expiration Date Visits Requested Visits Authorized [id number] Incomplete Perform Procedure 01/07/2024 07/05/2024 1 1 [...] and content) DATE CREATED AUTHOR 05/17/2022 [facility] DATE CREATED AUTHOR AUTHOR'S ORGANIZ ATION 07/31/2022 [facility] DATE CREATED AUTHOR AUTHOR'S ORGANIZ ATION 08/06/2023 [facility] DATE CREATED AUTHOR AUTHOR'S ORGANIZ ATION 03/25/2024 [facility] DATE CREATED AUTHOR AUTHOR'S ORGANIZ ATION [facility]/11/2024 [facility] DATE CREATED AUTHOR AUTHOR'S ORGANIZ ATION 09/28/2024 [facility] DATE CREATED AUTHOR AUTHOR'S ORGANIZ ATION 01/13/2025 [facility] dical Specialists EPIC Source Comments (unrecognize d section and content) In the event this informatio n is protected by the Federal Confidentiality of Alcohol and Drug Abuse Patient Records regulations: The Federal rules restrict any use of the information to criminally investigate or prosecute any alcohol or drug abuse patient.[facility] Care Teams (unrecognized sec tion and content) [...] March 19, 2024 End: March 19, 2024 Crusher Setter Relationship Specialty Start Date End Date Phoenix Garner [address] [place], [place] [id number] PCP - General Family Medicine 07/26/22 Crusher Setter Relationship Specialty Start Date End Date Phoenix Garner MD [address] [place] [address] PCP - General Family Medicine 06/18/23 Crusher Setter Relationship Specialty Start Date End Date Phoenix Garner MD [address] [place] [address] PCP - General Family Medicine 06/18/23 Crusher Setter Relationship Specialty Start Date End Date Phoenix Garner MD [address] [place] [address] PCP - General Family Medicine 06/18/23 Team [...] December 03, 2023 End: December 03, 2023 Crusher Setter Relationship Specialty Start Date End Date Phoenix Garner MD [address] [place] [address] PCP - General Family Medicine 06/18/23 Crusher Setter Relationship Specialty Start Date End Date Phoenix Garner MD [address] [place] [address] PCP - General Family Medicine 06/18/23 Crusher Setter Relationship Specialty Start Date End Date Phoenix Garner MD [address] [place] [address] PCP - General Family Medicine 06/18/23 Team Status: Active Member Role Status Dates Bright Mccall II, MD Attending Provider Active Start: March 19, 2024 Crusher Setter Relationship Specialty Start Date End Date Phoenix Garner MD [address] [place] [address] PCP - General Family Medicine 06/18/23 Crusher Setter Relationship Specialty Start Date End Date Phoenix Garner MD [address] [place] [address] PCP - General Family Medicine 06/18/23 Crusher Setter Relationship Specialty Start Date End Date Phoenix Garner MD [address] [place] [address] PCP - General Family Medicine 06/18/23 Crusher Setter Relationship Specialty Start Date End Date Phoenix Garner MD [address] [place] [address] PCP - General Family Medicine 06/18/23 Crusher Setter Relationship Specialty Start Date End Date Phoenix Garner MD [address] [place] [address] PCP - General Family Medicine 06/18/23 Crusher Setter Relationship Specialty Start Date End Date Fay Pascal, CERTIFIED LEGAL SECRETARY SPECIALIST - BELL CLEANER [address] [place] [address] PCP - General Nurse Practitioner 08/18/24 Crusher Setter Relationship Specialty Start Date End Date Phoenix Garner MD [address] [place] [address] PCP - General Family Medicine 06/18/23 Phoenix Garner MD [address] [place] [address] PCP - ACO Reach 06/26/24 Crusher Setter Relationship Specialty Start Date End Date Phoenix Garner MD [address] [place] [address] PCP - General Family Medicine 06/18/23 Phoenix Garner MD [address] [place] [address] PCP - ACO Reach 06/26/24 Crusher Setter Relationship Specialty Start Date End Date Phoenix Garner MD [address] [place] [address] PCP - General Family Medicine 06/18/23 Phoenix Garner MD [address] [place] [address] PCP - ACO Reach 06/26/24 Crusher Setter Relationship Specialty Start Date End Date Phoenix Garner MD [address] [place] [address] PCP - General Family Medicine 06/18/23 Phoenix Garner MD [address] [place] [address] PCP - ACO Reach 06/26/24 Crusher Setter Relationship Specialty Start Date End Date Fay Pascal APRN - BELL CLEANER [address] [place] [address] PCP - General Nurse Practitioner 08/18/24 Crusher Setter Relationship Specialty Start Date End Date Phoenix Garner MD [address] [place] [address] PCP - General Family Medicine 06/18/23 Phoenix Garner MD [address] [place] [address] PCP - ACO Reach 06/26/24 Fay Pascal NP [address] [place] [address] Nurse Practitioner Family Medicine 09/29/24 Crusher Setter Relationship Specialty Start Date End Date Phoenix Garner MD [address] [place] [address] PCP - General Family Medicine 06/18/23 Phoenix Garner MD [address] [place] [address] PCP - ACO Reach 06/26/24 Fay Pascal NP [address] [place] [address] Nurse Practitioner Family Medicine 09/29/24 Crusher Setter Relationship Specialty Start Date End Date Phoenix Garner MD [address] [place] [address] PCP - General Family Medicine 06/18/23 Phoenix Garner MD [address] [place] [address] PCP - ACO Reach 06/26/24 Fay Pascal NP [address] [place] [address] Nurse Practitioner Family Medicine 09/29/24 Crusher Setter Relationship Specialty Start Date End Date Phoenix Garner MD [address] [place] [address] PCP - General Family Medicine 06/18/23 Phoenix Garner MD [address] [place] [address] PCP - ACO Reach 06/26/24 Fay Pascal NP [address] [place] [address] Nurse Practitioner Family Medicine 09/29/24 Goals [...] BE BASED ON THE PRIMARY CLINICAL RECORDS. [facility]. provides no warranty or guarantee of the accuracy or completeness of information in this document.
[2025-03-04 06:10] LABS: C-Reactive Protein, Cardiac 0.38 mg/L (0.00-3.00)
== END 2025-03-03 12:26 | disposition home or self-care (01) ==
LOC: LAB 12:28
PROVIDERS: PCP Nurse Practitioner; Visit Provider Internal Medicine Cardiovascular Disease
DX: I34.0 Nonrheumatic mitral (valve) insufficiency (principal)
CPT/HCPCS: 36415; 85652; 86140; 86431

== ENCOUNTER 2025-03-19 09:04 | Outpatient (OUT) | payer MEDICARE, SELFPAY ==
--- OUTSIDE RECORDS SUMMARY | 2025-03-19 09:12 | XMS_ITS | Clinical Summary ---
Author Organization [facility] Address [address] [place] [address] Care Team Providers Care Trucker Hand Name Role Phone Phoenix Gannon MD Primary Care Provider [phone] Allergies No known active allergies Medications MedicationSigDispense QuantityRefillsLast FilledStart DateEnd DateStatus LEVOTHYROXINE SODIUM (LEVOTHYROXINE ORAL) Take by mouth.Active CALCIUM CARBONATE/VITAMIN D3 (CALCIUM + D ORAL) Take by mouth.Active CALCIUM CARBONATE/VITAMIN D3 (VITAMIN D-3 ORAL) Take by mouth.Active Social History Tobacco UseTypesPacks/DayYears UsedDateSmoking Tobacco: NeverSmokeless Tobacco: Never Tobacco Cessation:Counseling Given: Not Answered Alcohol UseStandard Drinks/WeekCommentsNot Currently0 (1 standard drink = 0.6 oz pure alcohol)Area Deprivation IndexAnswerDate RecordedNational Score (1-100), lower number is lower [id number] Score (1-10), lower number is lower riskNot on file3Data from: https://www.neighborhoodatlas.medicine.[facility].edu/. Last address used for smhdsqzyqps[address] [facility]07/30/2022CommentsUnknownSex and Gender InformationValueDate RecordedSex Assigned at BirthNot on fileLegal SexFemale 04/20/2012 10:02 AM ESTGender IdentityNot on fileSexual OrientationNot on file Last Filed Vital Signs Vital SignReadingTime TakenCommentsBlood Ojziifjm953/59007/30/2022 9:36 AM EDT Poukb7497 9:36 AM FLZNvakwqxltfi07.6 ??C (97.8 ??F)07/30/2022 9:36 AM EDTRespiratory Rate--Oxygen Qpppmztrxm69%07/30/2022 9:36 AM EDTInhaled Oxygen Concentration--Nqownz97.8 kg (145 lb)07/30/2022 9:36 AM ZUZOcjuyf564.6 cm (5' 6 )07/30/2022 9:36 AM EDTBody Mass Index23. 9:36 AM EDT Plan of Treatment Health MaintenanceDue DateLast DoneCommentsAnxiety Cuvsjzafy07/28/1974Depression Xcsaxtvrx63/28/1974Hepatitis C Hfhgxdomm77/28/1974DTaP,Tdap,Td Vaccine (1 - Tdap)1974Mammogram Qdnzkvcmn83/28/1996CT Kewoxvzhubpg12/28/2001Cologuard (FIT-DNA)07/17/20004774Qbhfbuadtkv49/28/2001Colorectal Cancer Gsxtqhviw24/28/2001 Fecal Occult Blood2000Lipid Sttxzxedb66/28/8810Yseblazpgbrue46/28/2001 Shingrix Vaccine (1 of 2)2005Medicare Annual Wellness Visit06/20/2020one Density Tnitsodfb95/28/2021Diabetes Hlkdaraxr24dvance Directive Lnwyhlbnod11/01/2025Covid-19 Vaccine ( - 2024- season)2025 Influenza Vaccine (#1)2025RSV Vaccine (1 - 1-dose 75+ series)2030 Pneumococcal Vaccine: 50+Xcyvfmurm93/11/2022, 07/15/2014, 08/18/2009 Insurance Care Teams Team MemberRelationshipSpecialtyStart DateEnd Date Phoenix Gannon MD [address] [place] [address] PCP - GeneralFamily Medicine07/26/22
--- OUTSIDE RECORDS SUMMARY | 2025-03-19 09:12 | XMS_ITS | Encounter Summary ---
Author Organization [facility] Address [address] [address] Care Team Providers Care Last Dipper Name Role Phone Fay Pascal MD Primary Care Provider [phone] Encounter Details DateTypeDepartmentCare Team (Latest Contact Info)Tsstsylgnsc14/29/2025Telephone [facility] [address] [place] [address] France Young RN Social History Tobacco UseTypesPacks/DayYears UsedDateSmoking Tobacco: NeverSmokeless Tobacco: NeverAlcohol UseStandard Drinks/WeekCommentsNot Currently0 (1 standard drink = 0.6 oz pure alcohol)PHQ-2AnswerDate RecordedPatient Health Questionnaire-2 Score CommentsUnknownSex and Gender InformationValueDate Recorded Sex Assigned at UhzzwSvmmbf53/10/2025 11:21 AM EDTLegal ZhqLknbwf83/22/2024 2:50 PM ESTGender PuuhwtctCszuac48/10/2025 11:21 AM EDTSexual OrientationHeterosexual or Pzbluxii01/10/2025 11:21 AM EDTdocumented as of this encounter Plan of Treatment DateTypeDepartmentCare Team (Latest Contact Info)Xuiqbbddaen90/06/2025 10:30 AM ESTAppointment [facility] [address] [place] [address] 04/12/2025 9:00 AM ESTOffice Visit [facility] [address] [place] [address] Kaveh Da Silva MD [address] [facility] [place] [address] documented as of this encounter Visit Diagnoses Not on filedocumented in this encounter Care Teams Team MemberRelationshipSpecialtyStart DateEnd Date Fay Pascal MD [address] [place] [address] PCP - GeneralNurse Azujhfvhtmud89/14/25documented as of this encounter
--- OUTSIDE RECORDS SUMMARY | 2025-03-19 09:12 | XMS_ITS | Encounter Summary ---
Author Organization [facility] Address [address] [place] [address] Care Team Providers Care Primary Class Teacher Name Role Phone Fay Pascal MD Primary Care Provider [phone] Encounter Details DateTypeDepartmentCare Team (Latest Contact Info)Ppskideyymi42/14/2025Orders Only [facility] at [facility] [address] [place] [address] Provider, MD Stephanie [address] [place] [address] Social History Tobacco UseTypesPacks/DayYears UsedDateSmoking Tobacco: NeverSmokeless Tobacco: NeverAlcohol UseStandard Drinks/WeekCommentsNot Currently0 (1 standard drink = 0.6 oz pure alcohol)PHQ-2AnswerDate RecordedPatient Health Questionnaire-2 Score CommentsUnknownSex and Gender InformationValueDate Recorded Sex Assigned at GzzyhTurxmt93/10/2025 11:21 AM EDTLegal QzwQirxho46/22/2024 2:50 PM ESTGender ZyjrjojeWkkbqr82/10/2025 11:21 AM EDTSexual OrientationHeterosexual or Lciuiipn26/10/2025 11:21 AM EDTdocumented as of this encounter Functional Status * BPAnswerDate of QtzlmoucmmJzxkua76/6203/03/2025 11:31 AM Yanet Bell MA * PulseAnswerDate of BafiisvrbcFmlvcm7743/15/2025 11:31 AM Yanet Bell MA * Patient PositionAnswerDate of LcabphhjmtKrmrgdQxvsuoh48/15/2025 11:31 AM EDT Yanet Wolfe MA * BPAnswerDate of HduaavfzaqEnrvna35/6203/03/2025 11:31 AM Yanet Bell MA * PulseAnswerDate of ZkfenwmzqpBbykvj7639/15/2025 11:31 AM Yanet Bell MA * HiD1LclnofBigw of QlwzbzdicwPxmulr0150/15/2025 11:31 AM Yanet Bell MA * BP LocationAnswerDate of AssessmentAuthorLeft arm03/03/2025 11:31 AM EDT Yanet Wolfe MA * Patient PositionAnswerDate of ZmcaecsnacQbsrvtDmlezpi60/15/2025 11:31 AM EDT Yanet Wolfe MA documented as of this encounter Plan of Treatment DateTypeDepartmentCare Team (Latest Contact Info)Ghjkxpcoptc40/06/2025 10:30 AM ESTAppointment [facility] Vascular Lab [address] [place] [phone] 04/12/2025 9:00 AM ESTOffice Visit [facility] [address] [place] [address] Kaveh Da Silva MD [address] [place] [phone] documented as of this encounter Procedures Procedure NamePriorityDate/TimeAssociated DiagnosisCommentsCOMPLETE TRANSTHORACIC ECHO (TTE) W/WO IMAGING AGENT, STRAIN, 3D, BUBBLE STUDYRoutine 01/15/2024 12:00 PM EDTdocumented in this encounter Results * Complete Echo (TTE) w/wo Imaging Agent, Strain, 3D, Bubble Study (01/15/2024 12:00 PM EDT)Anatomical RegionLateralityModalityUltrasound Narrative Authorizing ProviderResult TypeResult StatusHistorical Provider MDCV ECHO PROCEDURESFinal Result documented in this encounter Visit Diagnoses Not on filedocumented in this encounter Care Teams Team MemberRelationshipSpecialtyStart DateEnd Date Fay Pascal MD [address] [place] [address] PCP - GeneralNurse Pfospqryufje77/14/25documented as of this encounter
--- OUTSIDE RECORDS SUMMARY | 2025-03-19 09:12 | XMS_ITS | Encounter Summary ---
Author Organization [facility] Address [address] [place] [address] Care Team Providers Care Rental Clerk Name Role Phone Fay Pascal MD Primary Care Provider [phone] Encounter Details DateTypeDepartmentCare Team (Latest Contact Info)Dxdrpbmyosx16/21/2025Telephone [address] [address] Rosa M Gray MA Social History Tobacco UseTypesPacks/DayYears UsedDateSmoking Tobacco: NeverSmokeless Tobacco: NeverAlcohol UseStandard Drinks/WeekCommentsNot Currently0 (1 standard drink = 0.6 oz pure alcohol)PHQ-2AnswerDate RecordedPatient Health Questionnaire-2 Score CommentsUnknownSex and Gender InformationValueDate Recorded Sex Assigned at SulupGpqdzq55/10/2025 11:21 AM EDTLegal QuaIrawzt65/22/2024 2:50 PM ESTGender JmxwlhhzJlseyk30/10/2025 11:21 AM EDTSexual OrientationHeterosexual or Naflnvrh50/10/2025 11:21 AM EDTdocumented as of this encounter Plan of Treatment DateTypeDepartmentCare Team (Latest Contact Info)Krrsknmfwnx72/06/2025 10:30 AM ESTAppointment [facility] Vascular Lab [address] [place] [phone] 04/12/2025 9:00 AM ESTOffice Visit [address] [address] Kaveh Da Silva MD [address] [place] [address] documented as of this encounter Visit Diagnoses Not on filedocumented in this encounter Care Teams Team MemberRelationshipSpecialtyStart DateEnd Date Fay Pascal MD [address] [place] [address] PCP - GeneralNurse Desxkwsiyjqx48/14/25documented as of this encounter
--- OUTSIDE RECORDS SUMMARY | 2025-03-19 09:12 | XMS_ITS | Encounter Summary ---
Author Organization [facility] Address [address] [place] [address] Care Team Providers Care Vacuum Cleaner Assembler Name Role Phone Fay Pascal MD Primary Care Provider [phone] Encounter Details DateTypeDepartmentCare Team (Latest Contact Info)Twlmzcbiohz11/21/2025Telephone [address] [address] Rosa M Gray MA Social History Tobacco UseTypesPacks/DayYears UsedDateSmoking Tobacco: NeverSmokeless Tobacco: NeverAlcohol UseStandard Drinks/WeekCommentsNot Currently0 (1 standard drink = 0.6 oz pure alcohol)PHQ-2AnswerDate RecordedPatient Health Questionnaire-2 Score CommentsUnknownSex and Gender InformationValueDate Recorded Sex Assigned at HwsdcVcexao54/10/2025 11:21 AM EDTLegal IhyAoghyd91/22/2024 2:50 PM ESTGender LaushwgvSpkqen29/10/2025 11:21 AM EDTSexual OrientationHeterosexual or Ufdaffog18/10/2025 11:21 AM EDTdocumented as of this encounter Plan of Treatment DateTypeDepartmentCare Team (Latest Contact Info)Rinrruomrre27/06/2025 10:30 AM ESTAppointment [facility] Heart [facility] V[facility] Vascular Lab [address] [place] [phone] 04/12/2025 9:00 AM ESTOffice Visit [address] [address] Kaveh Da Silva MD [address] [facility] [place] [address] documented as of this encounter Visit Diagnoses Not on filedocumented in this encounter Care Teams Team MemberRelationshipSpecialtyStart DateEnd Date Fay Pascal MD [address] [place] [address] PCP - GeneralNurse Dulzbufdgodg41/14/25documented as of this encounter
--- OUTSIDE RECORDS SUMMARY | 2025-03-19 09:13 | XMS_ITS | Encounter Summary ---
Author Organization [facility] Address [address] [place] [address] Care Team Providers Care Refractory Grinder Operator Name Role Phone Phoenix Gannon MD Primary Care Provider [phone] Phoenix Gannon MD Unavailable Fay Pascal SCOUT EXECUTIVE Unavailable [phone] Encounter Details DateTypeDepartmentCare Team (Latest Contact Info)Oamuscvtwei20/23/2024Clinisync Result Encounter [facility] External Department Unsolicited Fay Pascal, SCOUT EXECUTIVE [address] [place] [phone] Social History Tobacco UseTypesPacks/DayYears UsedDateSmoking Tobacco: NeverSmokeless Tobacco: NeverAlcohol UseStandard Drinks/WeekCommentsNot Currently0 (1 standard drink = 0.6 oz pure alcohol)coffee 1-2 cups per dayHumiliation, Afraid, Rape, and Kick questionnaireAnswerDate RecordedWithin the last year, have you been afraid of your partner or ex-partner?No06/26/2023Within the last year, have you been humiliated or emotionally abused in other ways by your partner or ex-partner?No 06/26/2023Within the last year, have you been kicked, hit, slapped, or otherwise physically hurt by your partner or ex-partner?No06/26/2023Within the last year, have you been raped or forced to have any kind of sexual activity by your part ner or ex-partner?No06/26/2023Social Connection and Isolation PanelAnswerDate RecordedIn a typical week, how many times do you talk on the phone with family, friends, or neighbors?More than three times a week06/26/2023How often do you get together with friends or relatives?More than three times a week06/26/2023ttends Protestant ServicesNot on file06/26/2023o you belong to any clubs or organizations such as anabaptist groups, unions, fraternal or athletic groups, or school groups?No06/26/2023How often do you attend meetings of the clubs or organizations you belong to?Never06/26/2023re you , , , , never , or living with a partner?Usnqvfg7406/26/2023UDIT-C AnswerDate RecordedQ1: How often do you have a drink containing alcohol?Never 06/26/2023Q2: How many drinks containing alcohol do you have on a typical day when you are drinking?Patient does not drink06/26/2023Q3: How often do you have six or more drinks on one occasion?Never06/26/2023Overall Financial Resource Strain (CARDIA)AnswerDate RecordedHow hard is it for you to pay for the very basics like food, housing, medical care, and heating?Not hard at all06/26/2023 PHQ-2AnswerDate RecordedPatient Health Questionnaire-2 Pfrmx344Finheber [facility] [place] of Occupational Health - Occupational Stress QuestionnaireAnswerDate RecordedDo you feel stress - tense, restless, nervous, or anxious, or unable to sleep at night because yourmind is troubled all the time - these days?To some uoluyn1606/26/2023Exercise Vital SignAnswerDate RecordedOn average, how many days per week do you engage in moderate to strenuous exercise (like a brisk walk)?1 day06/26/2023On average, how many minutes do you engage in exercise at this level?20 min06/26/2023Hunger Vital SignAnswerDate RecordedWithin the past 12 months, you worried that your food would run out before you got the money to buy more.Never true06/26/2023Within the past 12 months, the food you bought just didn't last and you didn't have money to get more.Never true4PRAPARE - TransportationAnswerDate RecordedIn the past 12 months, has lack of transportation kept you from medical appointments or from getting medications?No 06/26/2023In the past 12 months, has lack of transportation kept you from meetings, work, or from getting things needed for daily living?No06/26/2023 Housing Stability Vital SignAnswerDate RecordedIn the last 12 months, was there a time when you were not able to pay the mortgage or rent on time?No06/26/2023In the last 12 months, how many places have you lived?In the last 12 months, was there a time when you did not have a steady place to sleep or slept in ashelter (including now)?No06/26/2023CommentsUnknownSex and Gender InformationValueDate RecordedSex Assigned at BirthNot on fileLegal SexFemale 08/01/2022 8:21 PM EDTGender IdentityNot on fileSexual OrientationNot on file documented as of this encounter Functional Status * Over the past 2 weeks, how often have you been bothered by any of the following problems?QuestionAnswerDate of AssessmentAuthorLittle interest or pleasure in doing thingsNot at all01/12/2025 10:13 AM Taniya Etienne MAFeeling down, depressed, or hopelessNot at all01/12/2025 10:13 AM AEYT Taniya Groves MAPatient Health Questionnaire-2 Hffru945 10:13 AM Taniya Etienne MA * QuestionAnswerDate of AssessmentAuthorTrouble falling or staying asleep, or sleeping too muchNot at all01/12/2025 10:13 AM Taniya Etienne MA Feeling tired or having little energyNot at all01/12/2025 10:13 AM AYET Taniya Groves MAPoor appetite or overeatingNot at all01/12/2025 10:13 AM Taniya Etienne MAFeeling bad about yourself - or that you are a failure or have let yourself or your family downNot at all01/12/2025 10:13 AM Taniya Etienne MATrouble concentrating on things, such as reading the newspaper or watching televisionNot at all01/12/2025 10:13 AM Taniya Etienne, MAMoving or speaking so slowly that other people could have noticed? Or the opposite - being so fidgety or restless that you have been moving around a lot more than usual.Not at all01/12/2025 10:13 AM Taniya Etienne MAThoughts that you would be better off or hurting yourself in some wayNot at all01/12/2025 10:13 AM Taniya Etienne MAPatient Health Questionnaire-9 Ryrqw955 10:13 AM Taniya Etienne MA documented as of this encounter Plan of Treatment Not on file documented as of this encounter Procedures Procedure NamePriorityDate/TimeAssociated DiagnosisCommentsMM TOMOSYNTHESIS SCREENING BI05/11/2024 2:21 PM EST documented in this encounter Results * MM TOMOSYNTHESIS SCREENING BI (05/11/2024 2:21 PM EST)Anatomical Region LateralityModalityOtherSpecimen (Source)Anatomical Location / Laterality Collection Method / VolumeCollection TimeReceived Time05/11/2024 2:21 PM EST Narrative 05/11/2024 2:22 PM EST [facility] ?[address] ? [place] [id number] ? Mammography Report ? Signed ? Patient: MAAG,ALESHA A ?MR#: [id number] ?? : 1955 ?Acct:[id number] ?? Age/Sex: 68 / F ?ADM Date: 12/23/24 ?? Loc: MAMMO ? Attending Dr: Fay J Aichholz SCOUT EXECUTIVE ? Ordering Physician: Aichholz,Fay SCOUT EXECUTIVE ?Results: ? Date of Service: 05/11/24 ?Follow Up: ? Procedure(s): MM tomosynthesis screening BI ?? Accession Number(s): [id number] ? cc: Fay Pascal SCOUT EXECUTIVE ? Patient Name: ? ALESHA MAAG ? MR#: [id number] ? : 1955 ? Exam Date: 05/11/2024 ?? Ordering Doctor: YAJAIRA Pascal CNP ? RADIOLOGY REPORT ? PROCEDURE: ? MM TOMOSYNTHESIS SCREENING BI ? COMPARISON: ? MM TOMOSYNTHESIS SCREENING BI, 05/10/2023. ??MG MAMM SCREEN 3D ?? NEETA CAD, 05/09/2022. ? INDICATIONS: ? Screening ? Calculator Name ? NCI Breast Cancer Risk Assessment Tool ?? 5 Year Breast Cancer Risk ? 1.10% ?? Lifetime Breast Cancer Risk ? 3.70% ?? Personal Breast Cancer ?No ?? Personal Ovarian Cancer ? No ?? Treatments ? None ?? Family Cancers ? Father with lung cancer at age 43; Brother with liver ?? cancer at age 65; Brother with colon/lung cancer at age 46; Brother with lung ?? cancer at age 74. ? LOCATION: ? [facility] ? BREAST COMPOSITION: ? There are scattered areas of fibroglandular density. ? FINDINGS: ? DIAGNOSTIC CATEGORY 1--NEGATIVE. NO CHANGE FROM COMPARISON ASSESSMENT. ? RIGHT BREAST: ??No significant suspicious finding. ? LEFT BREAST: ??No significant suspicious finding. ? RECOMMENDATIONS: ? ROUTINE MAMMOGRAM AND CLINICAL EVALUATION IN 12 MONTHS. ? PLEASE NOTE: ??A NORMAL MAMMOGRAM DOES NOT EXCLUDE THE POSSIBILITY OF BREAST ?? CANCER. ??A CLINICALLY SUSPICIOUS PALPABLE LUMP SHOULD BE BIOPSIED. ? Dictated by: Panda Lange MD on 05/11/2024 at 14:20 ? Approved by: Panda Lange MD on 05/11/2024 at 14:20 ? Dictated By: ?Panda Lange M.D. ? Signed By: ?12/23/24 1422 ? DD/ 1421 ? TD/TT: ? Actuarial Technician: Procedure Note Radiology, Radiologist, MD - 05/11/2024 [place] [address] Mammography Report Signed Patient: ALESHA BONILLA [facility]#: [id number] : 6Acct:[id number] Age/Sex: 68 / FADM Date: 05/11/24 Loc: MAMMO Attending Dr: Fay Pascal SCOUT EXECUTIVE Ordering Physician: Fay Pascal NPResults: Date of Service: 05/11/24Follow Up: Procedure(s): MM tomosynthesis screening BI Accession Number(s): [id number] cc: Fay Pascal NP Patient Name: ALESHA BONILLA MR#: [id number] : 1955 Exam Date: 05/11/2024 Ordering Doctor: YAJAIRA Pascal ORACLE DATABASE ADMINISTRATOR RADIOLOGY REPORT PROCEDURE: MM TOMOSYNTHESIS SCREENING BI COMPARISON: MM TOMOSYNTHESIS SCREENING BI, 05/10/2023. MG MAMM [id number] NEETA CAD, 05/09/2022. INDICATIONS: Screening Calculator Name [...] withlung cancer at age 74. LOCATION: [facility] BREAST COMPOSITION: There are scattered areas of [...] M.D. Signed By:05/11/24 1422 DD/ 142 TD/TT: Actuarial Technician: Authorizing ProviderResult TypeResult StatusLisa Psacal NPCLINISYNC IMAGING Final Result documented in this encounter Visit Diagnoses Not on filedocumented in this encounter Additional Health Concerns AssessmentNoted TimePHQ-9 Depression Total Score: 10:38 AM EDT documented as of this encounter Care Teams Team MemberRelationshipSpecialtyStart DateEnd Date Phoenix Gannon MD PCP - GeneralFamily Medicine06/18/23 Phoenix aGnnon MD [address] [place] [phone] PCP - [facility]06/26/24 Fay Pascal NP [address] [place] [phone] Nurse PractitionerFamily Medicine09/29/24documented as of this encounter
--- OUTSIDE RECORDS SUMMARY | 2025-03-19 09:13 | XMS_ITS | Clinical Summary ---
Author Organization [facility] Address [address] [place] [address] Care Team Providers Care Gravel Screener Name Role Phone Phoenix Gannon MD Primary Care Provider [phone] Phoenix Gannon MD Unavailable Fay Pascal OVEN HEATER HELPER Unavailable [phone] Allergies No known active allergies Medications MedicationSigDispense QuantityRefillsLast FilledStart DateEnd DateStatus Calcium Citrate-Vitamin D (Yovanny-Citrate Plus Vitamin D) 250-2.5 MG-MCG tablet Take 1 tablet by mouth in the morning and 1 tablet in the evening.Active levothyroxine (Synthroid, Levoxyl) 75 MCG tablet Indications:Hypothyroidism, adultTake 1 tablet (75 mcg) by mouth in the morning. Take before meals. 90 tablet 515Active Active Problems ProblemNoted DateDiagnosed DateNonrheumatic aortic valve rdgxatcbtsqnq26/26/2025 Assessment & Plan (01/12/2025 11:03 AM EDT): ECHO Obstructive sleep apnea aknkweld93/20/2024 Assessment & Plan (01/12/2025 6:20 AM EDT): [...] EDT): Non compliant with PAP use Lactose ldoelstancm90/20/2024IBS (irritable bowel syndrome)01/07/2024History of colon kdexkq8401/07/20245488Byaxppdlme45/20/7478Plkekjvguglsnp36/20/2024bdominal pain 01/07/2024Encounter for screening mammogram for malignant neoplasm of breast 01/07/2024 Assessment & Plan (01/12/2025 6:23 AM EDT): Due in 05/13 Will provide order Encounter for subsequent annual wellness visit (AWV) in Medicare patient 01/07/2024 [...] Follow up yearly and prn Lesion of liver4Right hip pain06/27/2023rimary osteoarthritis of right knee06/27/2023Osteoporosis, eixfsuygrqtmiu03/08/2024 Assessment & Plan (01/12/2025 6:25 AM EDT): No DEXA on file, I do recommend DEXA scan Does take calcium/vit d supplement Sgokfnjfhjiwpv06/08/2024Vitamin D iklpdsadtz98/08/2024 Assessment & Plan (01/12/2025 6:24 AM EDT): Takes calcium/vit d supplement Ljfovdgpgtp27/08/2024Hypothyroidism, adult06/27/2023 Assessment & Plan (01/12/2025 6:26 AM EDT): [...] dose to 75mcg Lichenification and lichen simplex jhbgyaagx28/08/5986Hunlznatkpgk98/08/2024 Assessment & Plan (01/12/2025 6:21 AM EDT): Hx of this per lab finding, no statin use Recommend low fat diet SCC (squamous cell carcinoma)06/27/2023asal cell dhpzjizoh56/08/2024MI 21.0- 21.9, adult4Rectal dyvonkbf42/08/2024 Overview (08/01/2023): Colonoscopy 07/31/23: mild diverticulosis Assessment [...] her see general surgeon for evaluation Heart ekhwcq5306/27/2023 Overview (02/19/2024): ECHO: 01/2024 mild regurg TV [...] after done with rectal bleeding Resolved Problems ProblemNoted DateDiagnosed DateResolved DateGastroesophageal reflux disease Encounters DateTypeDepartmentCare FjdpKplthkhiuue27/26/2025 10:00 AM EDTOffice Visit [facility] [address] [place] [address] Fay Pascal NP Encounter for subsequent annual wellness visit (AWV) in Medicare patient (Primary Dx); Obstructive sleep apnea syndrome; Dyslipidemia ; Encounter for screening mammogram for malignant neoplasm of breast; Osteoporosis, postmenopausal ; Vitamin D deficiency; Prediabetes; Hypothyroidism, adult ; Heart murmur; Nonrheumatic aortic valve bopxhhxglpdbk72/26/2025linisync Result Encounter [facility] External Department Unsolicited Fay Pascal NP from Last 3 Months Immunizations ImmunizationAdministration DatesNext DuePneumococcal Conjugate PCV 13007/15/2014 Pneumococcal Conjugate PCV neumococcal Polysaccharide PPSV23 08/18/2009 Family History Medical HistoryRelationNameCommentsColon cancerBrotherLiver cancerBrotherCancer FatherLung cancerFatherHyperlipidemiaMotherRelationNameStatusCommentsBrother FatherDeceasedMotherAlive Social History Tobacco UseTypesPacks/DayYears UsedDateSmoking Tobacco: NeverSmokeless [...] or relatives?More than three times a week06/26/2023ttends Adventism ServicesNot on file06/26/2023o you belong to any clubs or organizations such as pentecostalism groups, unions, fraternal or athletic groups, or school groups?No06/26/2023How often do you attend meetings of the clubs or organizations you belong to?Never06/26/2023re you , , , , never , or living with a partner?Oxlbicq7106/26/2023UDIT-C AnswerDate RecordedQ1: How often do you have a drink containing alcohol?Never 06/26/2023Q2: How many drinks containing alcohol do you have on a typical day when you are drinking?Patient does not drink02/07/2024Q3: How often do you have six or more drinks on one occasion?Never06/26/2023Overall Financial Resource Strain (CARDIA)AnswerDate RecordedHow hard is it for you to pay for the very basics like food, housing, medical care, and heating?Not hard at all06/26/2023 PHQ-2AnswerDate RecordedPatient Health Questionnaire-2 Vazta021FinGoshen General Hospital of [facility] - Occupational Stress QuestionnaireAnswerDate RecordedDo you feel stress - tense, restless, nervous, or anxious, or unable to sleep at night because yourmind is troubled all the time - these days?To some ajkasv0506/26/2023Exercise Vital SignAnswerDate RecordedOn average, how many days [...] you didn't have money to get more.Never true06/26/2023RAPARE - TransportationAnswerDate RecordedIn the past 12 months, [...] EDTGender IdentityNot on fileSexual OrientationNot on file Last Filed Vital Signs Vital SignReadingTime TakenCommentsBlood Kfarnjli75/66001/12/2025 10:06 AM EDT Oovvy030401/12/2025 10:06 AM JRVKskbqcokduc35.7 ??C (98.1 ??F)01/12/2025 10:06 AM EDTRespiratory Ngvw857301/12/2025 10:06 AM EDTOxygen Ndiymhfswn06%01/12/2025 10:06 AM EDTInhaled Oxygen Concentration--Dxptes09.1 kg (137 lb)01/12/2025 10:06 AM KWMWbgusa532.6 cm (5' 6 )09/29/2024 9:14 AM EDTBody Mass Index22.11009/29/2024 9:14 AM EDT Plan of Treatment Health MaintenanceDue DateLast DoneCommentsCT Xxrrmkiwyasw93/28/1956FIT-DNA 1955FIT1955FOBT1955 4518Slrqljmcdkvte37/28/6611Xguubssdx76/23/2025 05/11/2024, 05/10/2023, 05/10/2023, Additional history existsMedicare Annual Wellness (AWV)6001/12/2025, 01/07/2024, 01/07/2024, Additional history hsauuyKcvvohcrfqo73, 04/03/2021, 04/03/2021olorectal Cancer Sgoglkacn40/13/2034neumococcal Vaccine: 65+ ArtdfXvcejbrdc32/11/2022, 07/15/2014, 08/18/2009Influenza VaccineDiscontinued Procedures Procedure NamePriorityDate/TimeAssociated DiagnosisCommentsALL THYROXINE (T4) LNLWPdefoia28/26/2025 12:03 PM EDT TBH VITAMIN D 25 XKXxqkrsu73/26/2025 12:03 PM EDT ALL THYROID STIM CZKRTNSXzrmdtf79/26/2025 12:03 PM EDT ALL T3 KGZHFdkiazc84/26/2025 12:03 PM EDT ALL LIPID PROFILE (FASTING)Rhhkfoe8401/12/2025 12:03 PM EDT [facility] CMP (CMP) (FOR REMOTE [facility] USE)Nlasssx3301/12/2025 12:03 PM EDT MLR HEMOGLOBIN R3FFzjffid71/26/2025 12:03 PM EDT ALL CBC WITH AUTO SBECDimmwge98/26/2025 12:03 PM EDT MM TOMOSYNTHESIS SCREENING BI05/11/2024 2:21 PM EST from Last 3 Months or Most Recently Relevant to Health Maintenance Results * TBH VITAMIN D 25 [place] (01/12/2025 12:03 PM EDT)ComponentValueRef RangeTest MethodAnalysis TimePerformed AtPathologist SignatureVITAMIN D25.8ng/mLTBH Comment: <20 ng/mL Vit D deficient 20-<30 ng/mL Vit D insufficient 30-100 ng/mL ??Vit D sufficient >100 ng/mL Potential Toxicity Specimen (Source)Anatomical Location / LateralityCollection Method / Volume Collection TimeReceived Time01/12/2025 12:03 PM EDT01/12/2025 12:05 PM EDT Narrative [facility] - 01/12/2025 2:35 PM EDT Authorizing ProviderResult TypeResult StatusLisa [facility] NPCLINISYNCFinal ResultPerforming OrganizationAddressCity/State/ZIP CodePhone Number [facility] * MLR HEMOGLOBIN A1C (01/12/2025 12:03 PM EDT)ComponentValueRef RangeTest Method Analysis TimePerformed AtPathologist SignatureGLYCOHEMOGLOBIN A1C5.14.5 - 6.2 %TBHComment: ADA RECOMMENDED LIMIT 4.0 - 6.0 ADA THERAPEUTIC TARGET < 7.0 ACTION SUGGESTED > 7.0 ESTIMATED AVERAGE BETJXXZ451hr/dLTBHSpecimen (Source)Anatomical Location / LateralityCollection Method / VolumeCollection TimeReceived Time01/12/2025 12:03 PM EDT01/12/2025 12:05 PM EDT Narrative [facility] - 01/12/2025 12:32 PM EDT Authorizing ProviderResult TypeResult StatusLisa Pascal NPCLINISYNCFinal ResultPerforming OrganizationAddressCity/State/ZIP CodePhone Number [facility] * [facility] CMP (CMP) (FOR REMOTE [facility] USE) (01/12/2025 12:03 PM EDT)ComponentValueRef RangeTest MethodAnalysis TimePerformed AtPathologist VqjwtxoiiPFOQWE149126 - 145 mmol/LTBHPOTASSIUM3.83.5 - 5.1 mmol/CZLGBVHNOLMH15772 - 107 mmol/LTBH CARBON IOYDGGH27.521.0 - 32.0 mmol/LTBHANION GAP10.3FKWWVVTBSN2308 - 106 mg/dL TBHBLOOD UREA JNHNGPAD20.07.0 - 18.0 mg/dLTBHCREATININE0.590.55 - 1.02 mg/dL TBHTBH EGFR-AF ICELANDIC>60>=60 mL/min/1.73m 2TBHTBH EGFR-NON AF ICELANDIC>60 >=60 mL/min/1.73m 2TBHBUN CREATININE RATIO20.5VJVFVHPNEB9.98.5 - 10.1 mg/dLTBH BILIRUBIN TOTAL0.60.2 - 1.0 mg/dLTBHASPARTATE AMINO TRFTNLXWCIF9651 - 37 U/L TBHALANINE YNXFNLUJLQJLSJZW5188 - 59 U/LTBHALKALINE LNAIWNQCRHM4207 - 116 U/L TBHTOTAL PROTEIN7.36.4 - 8.2 g/dLTBHALBUMIN LEVEL3.63.4 - 5.0 g/dLTBHGLOBULIN 3.7g/dLTBHALBUMIN GLOBULIN RATIO1.0TBHSpecimen (Source)Anatomical Location / LateralityCollection Method / VolumeCollection TimeReceived Time01/12/2025 12:03 PM EDT01/12/2025 12:05 PM EDT Narrative [facility] - 01/12/2025 1:37 PM EDT Authorizing ProviderResult TypeResult StatusLisa Pascal NPCLINISYNCFinal ResultPerforming OrganizationAddressCity/State/ZIP CodePhone Number [facility] * ALL THYROXINE (T4) FREE (01/12/2025 12:03 PM EDT)ComponentValueRef RangeTest MethodAnalysis TimePerformed AtPathologist SignatureFREE T41.060.76 - 1.46 ng/dLTBHSpecimen (Source)Anatomical Location / LateralityCollection Method / VolumeCollection TimeReceived Time01/12/2025 12:03 PM EDT01/12/2025 12:05 PM EDT Narrative [facility] - 01/12/2025 2:35 PM EDT Authorizing ProviderResult TypeResult StatusLiAstria Toppenish [facility] NPCLINISYNCFinal ResultPerforming OrganizationAddressCity/State/ZIP CodePhone Number [facility] * ALL THYROID STIM HORMONE (01/12/2025 12:03 PM EDT)ComponentValueRef RangeTest MethodAnalysis TimePerformed AtPathologist SignatureTHYROID STIMULATING HORMONE3.6080.358 - 3.740 uIU/mLTBHSpecimen (Source)Anatomical Location / LateralityCollection Method / VolumeCollection TimeReceived Time01/12/2025 12:03 PM EDT01/12/2025 12:05 PM EDT Narrative [facility] - 01/12/2025 1:37 PM EDT Authorizing ProviderResult TypeResult StatusLiAstria Toppenish Hospital NPCLINISYNCFinal ResultPerforming OrganizationAddressty/State/ZIP CodePhone Number [facility] * ALL T3 FREE (01/12/2025 12:03 PM EDT)ComponentValueRef RangeTest Method Analysis TimePerformed AtPathologist SignatureFREE T32.312.18 - 3.98 pg/mLTBH Specimen (Source)Anatomical Location / LateralityCollection Method / Volume Collection TimeReceived Time01/12/2025 12:03 PM EDT01/12/2025 12:05 PM EDT Narrative [facility] - 01/12/2025 1:37 PM EDT Authorizing ProviderResult TypeResult StatusLiAstria [facility] NPCLINISYNCFinal ResultPerforming OrganizationAddressty/State/ZIP CodePhone Number [facility] * (ABNORMAL) ALL LIPID PROFILE (FASTING) (01/12/2025 12:03 PM EDT)ComponentValue Ref RangeTest MethodAnalysis TimePerformed AtPathologist Signature VNUVLNCVQQINC31<=150 mg/zCXYNAXWZTCMLTTE290(H)<=200 mg/dLTBHHDL KTYPZNJHKPB02 (H)40 - 60 mg/dLTBHComment: > or =60 mg/dl - LOW CARDIOVASCULAR RISK <40 mg/dl - HIGH CARDIOVASCULAR RISK LDL CHOLESTEROL HJMTYSQANB277.0mg/dLTBHComment: <100 mg/dl OPTIMAL 100-129 mg/dl NEAR OR ABOVE OPTIMAL 130-159 mg/dl BORDERLINE HIGH 160-189 mg/dl HIGH >190 mg/dl VERY HIGH VLDL CHOLESTEROL4.4mg/dLTBHCHOL HDL RATIO2.6TBHComment: 3.3 - 4.4 ?? LOW RISK 4.4 - 7.1 ?? AVERAGE RISK 7.1 - 11.0 ??MODERATE RISK >11.0 HIGH RISK Specimen (Source)Anatomical Location / LateralityCollection Method / Volume Collection TimeReceived Time01/12/2025 12:03 PM EDT01/12/2025 12:05 PM EDT Narrative [facility] - 01/12/2025 1:37 PM EDT Authorizing ProviderResult TypeResult StatusLisa [facility] NPCLINISYNCFinal ResultPerforming OrganizationAddressCity/State/ZIP CodePhone Number [facility] * (ABNORMAL) ALL CBC WITH AUTO DIFF (01/12/2025 12:03 PM EDT)ComponentValueRef RangeTest MethodAnalysis TimePerformed AtPathologist SignatureTBH WBC5.14.0 - 11.0 10 3/uLTBHTBH RBC3.99(L)4.20 - 5.40 10 6/uLTBHTBH HGB12.012.0 - 16.0 g/dL TBHTBH HCT35.9(L)36.0 - 48.0 %TBHTBH MCV90.081.0 - 99.0 fLTBHTBH MCH30.126.7 - 34.0 pgTBHTBH MCHC33.429.9 - 35.2 g/dLTBHTBH RDW13.011.0 - 15.0 %TBHTBH NSE994 150 - 450 10 3/uLTBHTBH MPV10.29.5 - 13.5 fLTBHNEUTROPHILS PERCENT AUTO74.6 43.0 - 75.0 %TBHLYMPHOCYTES PERCENT AUTO14.6(L)20.5 - 60.0 %TBHMONOCYTES PERCENT AUTO8.61.7 - 12.0 %TBHTBH EO %1.20.9 - 7.0 %TBHBASOPHILS PERCENT AUTO 0.60.2 - 2.0 %TBHIMMATURE GRANULOCYTES PCT AUTO0.40.0 - 0.5 %TBHNEUTROPHILS ABSOLUTE AUTO3.81.4 - 6.5 10 3/uLTBHLYMPHOCYTES ABSOLUTE AUTO0.8(L)1.2 - 3.8 10 3/uLTBHMONOCYTES ABSOLUTE AUTO0.40.3 - 0.8 10 3/uLTBHTBH EO #0.10.0 - 0.7 10 3/uLTBHBASOPHILS ABSOLUTE AUTO0.00.0 - 0.1 10 3/uLTBHIMMATURE GRANULOCYTES ABS AUTO0.020.00 - 0.03 10 3/uLTBHSpecimen (Source)Anatomical Location / LateralityCollection Method / VolumeCollection TimeReceived Time01/12/2025 12:03 PM EDT01/12/2025 12:05 PM EDT Narrative [facility] - 01/12/2025 12:31 PM EDT Authorizing ProviderResult TypeResult StatusLisa Aichholz NPCLINISYNCFinal ResultPerforming OrganizationAddressCity/State/ZIP CodePhone Number [facility] * MM TOMOSYNTHESIS SCREENING BI (05/11/2024 2:21 PM EST)Anatomical Region LateralityModalityOtherSpecimen (Source)Anatomical Location / Laterality Collection Method / VolumeCollection TimeReceived Time05/11/2024 2:21 PM EST Narrative 05/11/2024 2:22 PM EST [facility] ?[address] ? [place] [address] ? Mammography Report ? Signed ? Patient: MAAG,ALESHA A ?MR#: [id number] ?? : 1955 ?Acct:[id number] ?? Age/Sex: 68 / F ?ADM Date: 12/23/24 ?? Loc: MAMMO ? Attending Dr: Fay Pascal OVEN HEATER HELPER ? Ordering Physician: Fay Pascal OVEN HEATER HELPER ?Results: ? Date of Service: 05/11/24 ?Follow Up: ? Procedure(s): MM tomosynthesis screening BI ?? Accession Number(s): [id number] ? cc: Fay Pascal OVEN HEATER HELPER ? Patient Name: ? ALESHA MAAG ? MR#: [id number] ? : 1955 ? Exam Date: 05/11/2024 [...] at age 74. ? LOCATION: ? [facility] ? BREAST COMPOSITION: ? There are scattered [...] SHOULD BE BIOPSIED. ? Dictated by: Panda Redman MD on 05/11/2024 at 14:20 ? Approved by: Panda Redman MD on 05/11/2024 at 14:20 ? Dictated By: ?Panda Redman M.D. ? Signed By: ?05/11/242 ? DD/ 1421 ? TD/TT: ? Marketing Support Assistant: Procedure Note Radiology, Radiologist, MD - 05/11/2024 [place] [address] Mammography Report Signed Patient: AELSHA BONILLA [facility]#: [id number] : 1955cct:[id number] Age/Sex: 68 / FADM Date: 05/11/24 Loc: MAMMO Attending Dr: Fay Pascal NP Ordering Physician: Fay Pascalesults: Date of Service: 05/11/24Follow Up: Procedure(s): MM tomosynthesis screening BI Accession Number(s): [id number] cc: Fay Pascal NP Patient Name: ALESHA BONILLA MR#: [id number] : 1955 Exam Date: 05/11/2024 Ordering Doctor: YAJAIRA Pascal CNP RADIOLOGY REPORT PROCEDURE: MM TOMOSYNTHESIS SCREENING BI COMPARISON: MM TOMOSYNTHESIS SCREENING BI, 05/10/2023. MG MAMM SZLJVH4E NEETA CAD, 05/09/2022. INDICATIONS: Screening Calculator Name [...] withlung cancer at age 74. LOCATION: [facility] BREAST COMPOSITION: There are scattered areas of fibroglandulardensity. FINDINGS: DIAGNOSTIC CATEGORY 1--NEGATIVE. NO CHANGE FROM COMPARISON ASSESSMENT. RIGHT BREAST: No significant suspicious finding. LEFT BREAST: No significant suspicious finding. RECOMMENDATIONS: ROUTINE MAMMOGRAM AND CLINICAL EVALUATION IN 12 MONTHS. PLEASE NOTE: A NORMAL MAMMOGRAM DOES NOT EXCLUDE THE POSSIBILITY OFBREAST CANCER. A CLINICALLY SUSPICIOUS PALPABLE LUMP SHOULD BE BIOPSIED. Dictated by: Panda Redman MD on 05/11/2024 at 14:20 Approved by: Panda Redman MD on 05/11/2024 at 14:20 Dictated By: Panda Redman M.D. Signed By:05/11/241421 DD/ 20 TD/TT: Marketing Support Assistant: Authorizing ProviderResult TypeResult StatusLisa [facility] NPCLINISYNC IMAGING Final Result from Last 3 Months or Most Recently Relevant to Health Maintenance Insurance Care Teams Team MemberRelationshipSpecialtyStart DateEnd Date Phoenix Gannon MD PCP - GeneralFamily Medicine06/18/23 Phoenix Gannon MD [address] [place] [address] PCP - O [facility]06/26/24 Fay Pascal NP [address] [place] [address] Nurse PractitionerFloyd [facility]k Medical Center09/29/24
--- OUTSIDE RECORDS SUMMARY | 2025-03-19 09:13 | XMS_ITS | Clinical Summary ---
Author Organization [facility] Address [address] [place] [address] Care Team Providers Care Composition Stone Applicator Name Role Phone Fay Pascal MD Primary Care Provider [phone] Allergies No known active allergies Medications MedicationSigDispense QuantityRefillsLast FilledStart DateEnd DateStatus levothyroxine (Synthroid, Levoxyl) 75 mcg tablet Take 75 mcg by mouth before breakfast.02/11/2017Active calcium citrate-vitamin D2 250 mg-2.5 mcg (100 unit) tablet Take 1 tablet by mouth two times daily.Active calcium 500 mg calcium (1,250 mg) tablet Take 1 tablet by mouth with breakfast and with evening meal.Active Active Problems ProblemNoted DateDiagnosed DateNonrheumatic aortic valve rxtwrzukhxxma00/26/2025 Okjllnjrfiiumq03/20/2024Encounter for screening mammogram for malignant neoplasm of dcdxtj0801/07/20244196Zzrhvgoxyx82/20/2024History of colon tzbzby2001/07/2024IBS (irritable bowel syndrome)01/07/2024Lactose iizkdiygpdk70/20/2024Obstructive sleep apnea dbedclpy75/20/2024bdominal pain01/07/2024Lesion of liver07/15/2023 BMI 21.0-21.9, adult06/27/2023Heart ikdcdr7706/27/2023 Overview (03/02/2025): ECHO: 01/2024 mild regurg TV and MV, aortic mild-mod Hypothyroidism, adult06/27/2023Lichenification and lichen simplex chronicus 06/27/20231584Sxkbfxvggvqhpg00/08/2024Osteoporosis, hbiwucbixblabv23/08/2024rimary osteoarthritis of right knee4Rectal zpsckvit04/08/2024 Overview (03/02/2025): Colonoscopy 07/31/23: mild diverticulosis Basal cell hiecmqidj57/08/5165Lxaziermzjsm91/08/9901Ldfhzmhlafe46/08/2022Vitamin D uiyfdxuhfa59/14/2022 Encounters DateTypeDepartmentCare XtutNffdparatxi61/29/2025Telephone [facility] Vascular Lab [address] [place] [address] France Young RN 03/09/2025Telephone [facility] [address] [place] [address] Rosa M Gray MA 03/09/2025Telephone [facility] [address] [place] [address] Rosa M Gray MA 03/03/2025 11:40 AM EDTOffice Visit [facility] [address] [facility] [place] [address] Kaveh Da Silva MD Nonrheumatic mitral valve regurgitation (Primary Dx); Palpitations; Nonrheumatic aortic valve snmrfnjviitnl55/15/2025Orders Only [facility] [address] [place] [address] Jaelyn Wahl MA Nonrheumatic mitral valve regurgitation (Primary Dx)03/02/2025Orders Only [facility] [address] [place] [address] Provider, MD Stephanie from Last 3 Months Family History Medical HistoryRelationNameCommentsLiver diseaseBrother 1Liver diseaseBrother 2 Liver diseaseBrother 3Lung cancerFatherHypertensionMotherpacemakerSister 2 RelationNameStatusCommentsBrother 1DeceasedBrother 2DeceasedBrother 3Deceased FatherDeceasedMotherAliveSister 1AliveSister 2AliveSister 3Alive Social History Tobacco UseTypesPacks/DayYears UsedDateSmoking Tobacco: NeverSmokeless Tobacco: Never Tobacco Cessation:Counseling Given: Not Answered Alcohol UseStandard Drinks/WeekCommentsNot Currently0 (1 standard drink = 0.6 oz pure alcohol)PHQ-2AnswerDate RecordedPatient Health Questionnaire-2 Score0 09/23/2024CommentsUnknownSex and Gender InformationValueDate RecordedSex Assigned at KlpynJqfsqa27/10/2025 11:21 AM EDTLegal WgtUbblwf64/22/2024 2:50 PM ESTGender SvapesnnIumwag45/10/2025 11:21 AM EDTSexual OrientationHeterosexual or Lhxyqvow46/10/2025 11:21 AM EDT Last Filed Vital Signs Vital SignReadingTime TakenCommentsBlood Gmbubnxt56/6203/03/2025 11:31 AM EDT Qeunm168303/03/2025 11:31 AM FIEQlwnownsusp16.6 ??C (97.9 ??F)09/23/2024 8:51 AM EDTRespiratory Rate--Oxygen Pzegztqmdq02%03/03/2025 11:31 AM EDTInhaled Oxygen Concentration--Wvvfix58 kg (139 lb)03/03/2025 11:31 AM MSQHajxat540.6 cm (5' 6 ) 03/03/2025 11:31 AM EDTBody Mass Index22.441 11:31 AM EDT Plan of Treatment DateTypeDepartmentCare Team (Latest Contact Info)Pgoqspabtqb76/06/2025 10:30 AM ESTAppointment [facility] [address] [place] [address] 04/12/2025 9:00 AM ESTOffice Visit [facility] [place] [address] [place] [address] Kaveh Da Silva MD [address] [place] [address] Health MaintenanceDue DateLast DoneCommentsCT Xotfybpmwqgt55/28/1956Diabetes: Hemoglobin A1C1955FIT-DNA1955FIT1955FOBT1955Medicare Annual Wellness (AWV)1955 8927Jgwrrljjbfqik62/28/1956dult Rfypyfn6007/17/1977 Zoster Vaccines (1 of 2)2005Fall Risk Bgaoznjqf07/28/2021Mammogram OVID-19 Vaccine ( - season)2025Influenza Vaccine (#1)2025Depression Dauzuemmw65/5Colonoscopy olorectal Cancer Xrsfucpzy53/15/2031Pneumococcal Vaccine: 50+ VrbmgNstifmkue32/11/2022, 07/15/2014, 08/18/2009HIB VaccinesAged OutNo longer eligible based on patient's age to complete this topicHPV VaccinesAged OutNo longer eligible based on patient's age to complete this topicIPV Vaccines Aged OutNo longer eligible based on patient's age to complete this topic Meningococcal B VaccineAged OutNo longer eligible based on patient's age to complete this topicMeningococcal VaccineAged OutNo longer eligible based on patient's age to complete this topicRotavirus VaccinesAged OutNo longer eligible based on patient's age to complete this topic Procedures Procedure NamePriorityDate/TimeAssociated DiagnosisCommentsECG 12 LEAD UNIT AYMIEBSFSQitfnpx36/15/2025 12:03 PM EDT Palpitations from Last 3 Months Results * ECG 12 lead unit performed (03/03/2025 12:03 PM EDT)Specimen (Source) Anatomical Location / LateralityCollection Method / VolumeCollection Time Received Time Narrative Authorizing ProviderResult TypeResult StatusChristopher Avinash MARTINEZECG ORDERABLES Final Result from Last 3 Months Insurance Care Teams Team MemberRelationshipSpecialtyStart DateEnd Date Fay Pascal MD [facility] [place] [address] PCP - GeneralNurse Ttvlqeilfrmm52/14/25
--- OUTSIDE RECORDS SUMMARY | 2025-03-19 09:13 | XMS_ITS | CCD ---
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 Name Role Phone Kelsey Pop Unavailable FabiolaPanda [...] Pascual, Phoenix Montaño Primary Care Provider LORRAINE MCKINLEY Attending Unavailable PASCUAL, PHOENIX Montaño Primary Care Unavailable Phoenix Garner MD Primary Care Provider FAY PASCAL Primary Care Physician Jose M MADRID Attending Unavailable FAY PASCAL Referring Unavailable Jose M MADRID Attending Unavailable FLORINA Wade Attending Provider [phone] MD Bright Mccall II Attending Provider Phoenix Garner Primary Care Unavailable Fay Pascal Admitting Unavailable Fay Pascal Attending Unavailable Christiane Wade Admitting UnavailChristiane Barth Attending Unavailjessy e NON STAFF Primary Care Unavailable Bright Mccall II Admitting Unavailjessy e Bright Mccall II Attending Unavailabl e Naida HEATON - Fay BROCK Primary Care Provide r Phoenix Garner MD Unavailable FAY PASCAL Primary Care Unavailable CHANTEL, JUSTFÉLIX Referring Unavailable CHANTEL, JUSTEEN Referring Unavailable FAY PASCAL Primary Care Unavailable Naida BROCK, Fay Unavailable MELYSSA DICKERSON Attending Unavailable FAY PASCAL Attending Unavailable FAY PASCAL Attending Unavailable LELAND RICHARDSON Attending Unavailable CHAIM JEWELL Attending Unavailable Phoenix Garner MD Primary Care Provider [phone] Phoenix Garner MD Unavailable Naida BROCK, Fay Unavailable Phoenix Garner MD Primary Care Provider [phone] Allergies Allergy ClassificationReported Allergen(s)Allergy TypeDate of OnsetReaction(s) Facility (1 source)No Known Medication Allergies; Translations: [No Known Medication Allergies]Propensity to adverse reactions (disorder)[facility] Medications Current Medications MedicationDrug Class(es)DatesSig (Normalized)Sig (Original)alendronic acid 70 mg oral tablet (7 sources)Bisphosphonate End: 52-49-5873ndax 1 tablet by mouth in the morningalendronate (Fosamax) 70 MG tablet Take 70 mg by mouth every 7 (seven) days Take in the morning with a full glass of water, on an empty stomach, and do not take anything else by mouth or lie down forthe next 30 min. 01/07/2024 Discontinued (Therapy completed)ascorbic acid 1000 mg oral tablet (7 sources)Vitamin C End: 39-51-2199jgql 1 tablet by mouth in the morningAscorbic Acid (vitamin C) 1000 MG tablet Take 1,000 mg by mouth in the morning. 01/07/2024 Discontinued (Therapy completed)atorvastatin 20 mg oral tablet (7 sources)HMG-CoA Reductase Inhibitor End: 92-53-0469npsm 1 tablet by mouth in the morningatorvastatin (Lipitor) 20 MG tablet Take 20 mg by mouth in the morning. 01/07/2024 Discontinued (Therapy completed)Calcium Carb-Cholecalciferol (CALCIUM 500 + D PO) (7 sources) End: 91-25-7875iqcn 2 tablets by mouth once daily in the morningCalcium Carb- Cholecalciferol (CALCIUM 500 + D PO) Take 2 tablets by mouth in the morning and at noon 01/07/2024 Discontinuedtake 2 tablets by mouth once daily in the morning Calcium Carb-Cholecalciferol (CALCIUM 500 + D PO) Take 2 tablets by mouth in the morning and at noon Activetake 2 tablets by mouth once daily in the morning Calcium Carb-Cholecalciferol (CALCIUM 500 + D PO) Take 2 tablets by mouth in the morning and at noon 0 ActiveCalcium Carb-Cholecalciferol (CALCIUM CARBONATE- VITAMIN D3 PO) (2 sources)Calcium Carb-Cholecalciferol (CALCIUM CARBONATE-VITAMIN D3 PO) Take by mouth Activecalcium carbonate 600 mg / cholecalciferol 0.01 mg oral tablet (6 sources)Vitamin DStart: 01-07-2024 End: 59-85-3563qxjj 1 tablet by mouth once in the morningCalcium Carb- Cholecalciferol (Calcium + Vitamin D3) 600-10 MG-MCG tablet Indications: Vitamin D deficiency , Osteoporosis, 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CMS/HCC) Take 1 tablet by mouth in the morning and 1 tablet in the evening. Take with meals. 180 tablet 1 01/07/2024 04/06/2024 Activecalcium citrate 250 mg / cholecalciferol 100 unt oral tablet (5 sources)Vitamin Dtake 1 tablet by mouth once in the morning, then take 1 tablet by mouth once in the eveningCalcium Citrate-Vitamin D (Yovanny-Citrate Plus Vitamin D) 250-2.5 MG-MCG tablet Take 1 tablet by mouthin the morning and 1 tablet in the evening. Activecalcium lactate (1 source)Calcium Lactate Activeergocalciferol 1.25 mg oral capsule (4 sources)Provitamin D2 Compoundtake 1 capsule by mouth every week ergocalciferol (Vitamin D-2) 1.25 MG (44853 UT) capsule Take 1.25 mg by mouth 1 (one) time per week0 Activefluconazole 150 mg oral tablet (1 source)Azole AntifungalStart: 09-10-2024 End: 57-75-0244uqvymiqwhoa (DIFLUCAN) 150 MG tablet Indications: Vaginal discharge Take 1 tablet by mouth every 72hours for 6 days 2 tablet 09/10/2024 09/16/2024 Activelevothyroxine sodium 0.075 mg oral tablet (20 sources)l-ThyroxineStart: 12-09-2024 End: 17-17-4671zwla 1 tablet by mouth before mealtimelevothyroxine (Synthroid, Levoxyl) 75 MCG tablet Indications: Hypothyroidism, adult Take 1 tablet (75 mcg) by mouth in the morning. Take before meals. 90 tablet 01/12/2025 04/12/2025 ActiveStart: 04-23-2024 End: 22-84-2629ltxg 1 tablet by mouth before mealtimelevothyroxine (Synthroid) 88 MCG tablet Indications: Hypothyroidism, adult (CMS/HCC) Take 1 tablet (88 mcg) by mouth in the morning. Take before meals. 90 tablet 04/23/2024 06/09/2024 Discontinued (Therapy completed)Start: 02-19-2024 End: 66-37-6373mgxu 1 tablet by mouth before mealtimelevothyroxine (Synthroid) 75 MCG tablet Indications: Hypothyroidism, adult (CMS/HCC) Take 1 tablet (75 mcg) by mouth in the morning. Take before meals. 90 tablet 08/27/2024 11/25/2024 ActiveStart: 01-07-2024 End: 34-15-6601tlph 1 tablet by mouth before mealtimelevothyroxine (Synthroid) 100 MCG tablet Indications: Hypothyroidism, adult (CMS/HCC) Take 1 tablet(100 mcg) by mouth in the morning. Take before meals. 90 tablet 01/07/2024 02/19/2024 Discontinued (Therapy completed)Start: 92-91-2800Jweypalhxtbyx Active MCG PO December 03, 2023 12:00amStart: 11-26-2023 End: 56-11-0207vjcu 1 tablet by mouth before mealtimelevothyroxine (Synthroid) 88 MCG tablet Indications: Hypothyroidism, adult (CMS/HCC) Take 1 tablet (88 mcg) by mouth in the morning. Take before meals. 30 tablet 1 11/26/2023 01/07/2024 Discontinued (Therapy completed)Start: 49-00-8967qelr 1 tablet by mouth once dailySynthroid 100 mcg Tab 100 mcg = 1 tab(s), Oral, Daily, Refills(s) 0 Start Date: 07/05/23 Status: OrderedStart: 04-03-2021 End: 31-02-1379aksg 75 ug by mouth once dailyLevothyroxine Discontinued 75 MCG PO Daily April 03, 2021 1:00am December 03, 2023 5:35pmtake 1 tablet by mouth before mealtimelevothyroxine (Synthroid, Levoxyl) 100 MCG tablet Indications: Hypothyroidism Take 100 mcg by mouthin the morning. Take before meals. 0 Active LEVOTHYROXINE SODIUM (LEVOTHYROXINE ORAL) Take by mouth. 0 Activetake 1 tablet by mouth once dailyLevothyroxine Sodium 75 MCG TAKE 1 TABLET BY MOUTH DAILY Oral for 60 ActiveComment on above:Take by mouth.omeprazole 40 mg delayed release oral capsule (7 sources)Proton Pump Inhibitor End: 90-57-2796iphg 1 capsule by mouth before mealtimeomeprazole (PriLOSEC) [address] capsule Take 40 mg by mouth in the morning. Take before meals. Do not crush or chew.. 01/07/2024 Discontinued (Therapy completed)Probiotic Product (PROBIOTIC DAILY PO) (2 sources)Probiotic Product (PROBIOTIC DAILY PO) Take by mouth ActiveVitamin D (1 source)Vitamin D Active Completed/Discontinued Medications MedicationDrug Class(es)DatesSig (Normalized)Sig (Original)Calcium Carbonate / vitamin D3 (2 sources)CALCIUM CARBONATE/VITAMIN D3 (CALCIUM + D ORAL) Take by mouth. 0 ActiveCALCIUM CARBONATE/VITAMIN D3 (VITAMIN D-3 ORAL) Take by mouth. 0 Active Comment on above:Take by mouth.hyaluronate (2 sources)Start: 46-97-2205Bob-One September, 3 mLnitrofurantoin, macrocrystals 25 mg / nitrofurantoin, monohydrate 75 mg oral capsule (4 sources)Nitrofuran AntibacterialStart: 12-03-2023 End: 39-68-0958waui 1 capsule by mouth every twelve hours at mealtime Nitrofurantoin Monohyd/M-Cryst (Macrobid) 100 mg capsule Discontinued 100 MG PO Every 12 hours 10 5July 2023 12:00am March 19, 2024 9:44am must administer with a meal/foodpredniSONE 20 mg oral tablet (4 sources)Start: 05-59-8141cgwl 1 tablet by mouth every twenty-four hours predniSONE 20 MG 1 tablet Orally Once a day for 14 days Apr, Not-Taking sucralfate 1000 mg oral tablet (5 sources)Aluminum ComplexStart: 47-96-2452xcxa 1 tablet by mouth every eight hoursSucralfate 1 GM 1 TABLET Orally THREE TIMES A DAY for 30 day(s) Mar, Not-TakingSuprep Bowel Prep Kit 17.5-3.13-1.6 GM/180ML (7 sources)Start: 37-90-0474Diasws Bowel Prep Kit 17.5-3.13-1.6 GM/180ML 177 ML DIRECTED AT 4 PM AND 11 PM Orally Twice a day for 1 day(s) September, Not-TakingTriamcinolone (4 sources)CorticosteroidStart: 13-52-9662Osqbmch -40 mg Feb, 40 mg Start: 44-97-5833Dtwmget -40 mg September, 40 mgVitamin D 50,000 intl units (1.25 mg) oral capsule (1 source)Start: 33-67-3842dzmi 1 capsule by mouth every weekVitamin D 50,000 intl units (1.25 mg) oral capsule 50,000 International_Unit = 1 cap(s), Oral, qWeek, Refills(s) 0 Start Date: 07/05/23 Status: Ordered Problems Active Problems Problem ClassificationProblemDateDocumented DateEpisodic/ChronicCardiac dysrhythmias (2 sources)Palpitations; Translations: [Palpitations]Onset: 64-63-1565Amzhqqng Disorders of lipid metabolism (20 sources)Hyperlipidemia, unspecified; Translations: [Dyslipidemia]Onset: 886650-93-5013VqqqispQooqgqahaovglb and diverticulitis (20 sources)Diverticular disease; Translations: [Diverticulosis of intestine, part unspecified, without perforation or abscess without bleeding]Onset: 756501-46-5662TtvaonsHybhg valve disorders (14 sources)Aortic incompetence, non-rheumatic ; Translations: [Nonrheumatic aortic (valve) insufficiency]Onset: 448935-66-5830HordhimQvofsea (1 source)Onychomycosis due to dermatophyte ; Translations: [Tinea unguium] 92-34-6587FpljlkmzIiiyrjkhfms deficiencies (20 sources)Vitamin D deficiency, unspecified; Translations: [Vitamin D deficiency]Onset: 44-87-6324RnlihrjZsczawqsgaetih (20 sources)Osteoarthritis of right knee joint; Translations: [Unilateral primary osteoarthritis, right knee]Onset: 066261-64-7839Hmyszti Osteoporosis (20 sources)Postmenopausal osteoporosis; Translations: [Age-related osteoporosis without current pathological fracture]Onset: 349163-79-4249PfmwdmzQynjm acquired deformities (1 source)Deformity of knee joint; Translations: [Unspecified acquired deformity of right lower leg]86-36-4660FhkxwhlkIpjgb acquired deformities (1 source)Unspecified acquired deformity of right lower leg; Translations: [Other acquired deformities of knee]81-24-6835HsqnihwpYuveb connective tissue disease (2 sources)Pain in toe; Translations: [Pain in left toe(s)]26-28-1479Dskgrtyg Other female genital disorders (2 sources)Vaginal discharge; Translations: [Other specified noninflammatory disorders of vagina]74-69-2815DxgebswgVajtw female genital disorders (1 source)Other specified noninflammatory disorders of vagina; Translations: [Other specified noninflammatorydisorders of vagina]Onset: 36-63-3780Ohrorewk Other gastrointestinal disorders (20 sources)Irritable bowel syndrome; Translations: [Mixed irritable bowel syndrome]Onset: 317848-01-1657KhwfhqoOsgul gastrointestinal disorders (5 sources)Irritable bowel syndrome with diarrhea; Translations: [Irritable bowel syndrome with diarrhea]14-06-7415HqmuupaXkrhe gastrointestinal disorders (2 sources)Irritable bowel syndrome with diarrheaOnset: 06-15-2021 Resolved: 92-45-9829MjxacclDlabk gastrointestinal disorders (1 source)Mixed irritable bowel syndromeOnset: 10-10-2021 Resolved: 46-18-9530BfwytutQrlyj gastrointestinal disorders (1 source)Rectal discharge; Translations: [Other specified symptoms and signs involving the digestive system and abdomen]EpisodicOther liver diseases (20 sources)Lesion of liver; Translations: [Liver disease, unspecified]Onset: 916415-54-4287ZnvueeeCklqw liver diseases (1 source)Liver disease, unspecifiedOnset: 06-20-2021 Resolved: 02-44-4921PfuqnbmSckjy liver diseases (1 source)Other specified diseases of liver; Translations: [Other specified diseases of liver]Onset: 77-07-8487WnmvhdjXxmdm nervous system disorders (1 source)Difficulty walking; Translations: [Difficulty in walking, not elsewhere classified]80-47-0314AsfuqjeGzwtb non-traumatic joint disorders (3 sources)Pain in right knee; Translations: [Right knee pain]Onset: 03-19-2024 06-03-5205SwdundjbIgfns nutritional; endocrine; and metabolic disorders (20 sources)Intolerance to lactose; Translations: [Lactose intolerance, unspecified]Onset: 516087-81-3983VkuqeksDcczz nutritional; endocrine; and metabolic disorders (1 source)Lactose intolerance, unspecifiedOnset: 10-10-2021 Resolved: 79-13-5590CdnoguuCbnyp skin disorders (1 source)Dystrophia unguium; Translations: [Nail dystrophy]51-52-4029Bvnijzbu Residual codes; unclassified (1 source)Sleep apnea; Translations: [Sleep apnea, unspecified]ChronicResidual codes; unclassified (1 source)Daytime somnolence; Translations: [Other hypersomnia]ChronicResidual codes; unclassified (20 sources)Obstructive sleep apnea syndrome; Translations: [Obstructive sleep apnea (adult) (pediatric)]Onset: 664578-67-6175OyuzvlsXadigmlo codes; unclassified (1 source)Other hypersomniaOnset: 10-10-2021 Resolved: 06-37-4095WuyepywOgodhihp codes; unclassified (1 source)Obstructive sleep apnea (adult) (pediatric)Onset: 10-10-2021 Resolved: 11-03-6885FqydrehEiykgikg codes; unclassified (1 source)Family history of malignant neoplasm of digestive organs; Translations: [FAM HX MALIG NEOPLASM DIGESTIV ORGN]Onset: 73-66-7517Skpifiog Residual codes; unclassified (1 source)Family history of malignant neoplasm of trachea, bronchus and lung; Translations: [FAM HX MALIG NEOPLSM TRACH BRON LNG]Onset: 18-11-3722Yiejkvpd Residual codes; unclassified (1 source)Family history of malignant neoplasm of other organs or systems; Translations: [FAM HX MALIG NEOPLASM OTH ORGN/SYS]Onset: 37-92-8776Msgwmvmy Thyroid disorders (20 sources)Acquired hypothyroidism; Translations: [Hypothyroidism, unspecified] Onset: 05-31-2021 Resolved: 73-72-0332DoiwyypDwdmuwbtadzt (1 source)Body mass index 20-24 - setfgm09-06-5995 Past or Other Problems Problem ClassificationProblemDateDocumented DateEpisodic/ChronicAbdominal hernia (1 source)Ventral hernia without obstruction or gangreneOnset: 06-15-2021 Resolved: 67-97-9067CaxsrfhdCshhznfwf pain (20 sources)Unspecified abdominal pain; Translations: [Abdominal pain]Onset: 03-20-2021 Resolved: 70-73-0902BfiwnmigXmmxcxgp mellitus without complication (20 sources)Prediabetes; Translations: [Prediabetes]Onset: 745312-44-0117 EpisodicEsophageal disorders (20 sources)Gastroesophageal reflux disease; Translations: [Gastro-esophageal reflux disease without esophagitis]Onset: 06-15-2021 Resolved: 41-98-6579CgjqcmbBsdghpkrybofpkui hemorrhage (20 sources)Rectal hemorrhage; Translations: [Hemorrhage of anus and rectum] Onset: 436027-79-2384MdutndxaVyuirzgigmlqn symptoms and ill-defined conditions (3 sources)Dysuria; Translations: [Dysuria]Onset: 051744-10-5396Ynvbqyfx Heart valve disorders (20 sources)Heart murmur; Translations: [Cardiac murmur, unspecified]Onset: 713102-16-3649KaqjmqklDvfksqmhmhj (20 sources)Hemorrhoids; Translations: [Unspecified hemorrhoids]Onset: 223085-71-7193ZnzbiyvqCiypmrmuzeeca mental health disorders (3 sources)Psychophysiologic insomnia; Translations: [Psychophysiologic insomnia]Onset: 10-10-2021 Resolved: 89-48-6782YgqhnkkPmmp disorders (20 sources)Mood disordersOnset: 01-07-2024 Resolved: Other aftercare (1 source)Other terminal gauger (current) drug therapy; Translations: [OTH GROUP HOME CURRENT DRUG THERAPY]Onset: 91-76-2537WxxfigpaElgyg and unspecified benign neoplasm (1 source)Hemangioma of intra-abdominal structuresOnset: 07-18-2021 Resolved: 64-32-5096UcivswomIpajm and unspecified benign neoplasm (20 sources)History of polyp of colon; Translations: [History of colon polyps] Onset: 408870-89-0584FogoleomJdbiq connective tissue disease (1 source)Trochanteric bursitis, left hip; Translations: [Trochanteric bursitis, left hip M70.62]Onset: 02-23-2021 Resolved: 05-30-5523QmhnwptkCzycd gastrointestinal disorders (2 sources)Diarrhea, unspecified; Translations: [Diarrhea R19.7]Onset: 03-20-2021 Resolved: 58-69-2325GmakvtkaCmbwm inflammatory condition of skin (20 sources)Lichen simplex chronicus; Translations: [Lichen simplex chronicus] Onset: 988426-66-5079OgenyzxuEiqda non-epithelial cancer of skin (20 sources)Squamous cell carcinoma of skin; Translations: [Squamous cell carcinoma of skin, unspecified]Onset: 169512-97-1251DxzvvlvvRhysy non- traumatic joint disorders (1 source)Pain in left hip; Translations: [Left hip pain M25.552]Onset: 02-23-2021 Resolved: 78-42-3387QslkdvmrHepil non-traumatic joint disorders (7 sources)Pain in right hip joint; Translations: [Pain in right hip]Onset: 091002-89-9355PbxspirvVcipd non-traumatic joint disorders (19 sources)Hip pain; Translations: [Pain in right hip]Onset: 06-27-2023 63-33-5025TokkfiwfQiudx nutritional; endocrine; and metabolic disorders (1 source)Abnormal weight lossOnset: 04-10-2021 Resolved: 95-53-3876UneuyehaPrrkm screening for suspected conditions (not mental disorders or infectious disease) (20 sources)Encounter for screening mammogram for malignant neoplasm of breast; Translations: [Patient encounter status]Onset: 29-79-1483NhqduedvPjbcfsgf codes; unclassified (20 sources)Body mass index 20-24 - normal; Translations: [Body mass index (BMI) 21.0-21.9, adult]Onset: 631427-43-6075Mqbnqlvc Results Test NameValueInterpretationReference RangeFacilityOffice Visiton 03-03-2025 Follow-up [id number] Alesha Bonilla 1955 Date Provider Department Center 03/03/2025 245-LELAND RICHARDSON MICHAEL Don Family History Problem Relation Age of Onset Hypertension Mother Lung cancer Father Other Sister Liver disease Brother Liver disease Brother Liver disease Brother Family Status - Relation Status Age at Mother Alive Father Sister Alive Sister Alive Sister Alive Brother Brother Brother Level of Service:49468 [place] OFFICE/OUTPATIENT NEW MODERATE MDM 45 MINUTES Reason for Visit and Comments: New Patient [632] - Patient is here today to establish care with cardiology. Patient had a recent Echo which showed mitral regurgitations. Patient complains of occasional SOB/LYNCH, racing/palpitations. Patient denies chest pain, leg swelling, fatigue. Heart Murmur [124] Valve Disorder [3372] Sleep Apnea [348] - Patient tested positive for sleep apnea, patient does not wish to use a cpap machine. She wants to talk about sleep apnea and how it effects the heartNormalUniversity of Chi St. [facility] HospitalOrders Onlyon 54-63-6071Hyxxjd [id number] Alesha Bonilla 1955 Date Provider Department Center 03/02/2025 [id number], HISTORICAL MICHAEL Don Family History Problem Relation Age of Onset Hypertension Mother Lung cancer Father Other Sister Liver disease Brother Liver disease Brother Liver disease Brother Family Status - Relation Status Age at Mother Alive Father Sister Alive Sister Alive Sister Alive Brother Brother Brother DeceasedNormalUniversity of Chi St. Luke'S Health – [facility] HospitalALL CBC WITH AUTO DIFFon 24-21-3309DQIGZFXDY ABSOLUTE BYIH5HQZW HealthcareBasophils/100 WBC (Bld)0.6 %0.2 - 2.0 %NOMWashington County Memorial HospitalEosinophils/100 WBC (Bld)1.2 %0.9 - 7.0 %Cox NorthErythrocyte distribution width (RBC) [Ratio]13 %11.0 - 15.0 %Cox NorthHematocrit (Bld) [Volume fraction]35.9 % Low36.0 - 48.0 %Cox NorthHemoglobin (Bld) [Mass/Vol]12 g/dL12.0 - 16.0 g/dLCox NorthIMMATURE GRANULOCYTES ABS AUTO0.02NOPhelps HealthImmature granulocytes/100 WBC (Bld)0.4 %0.0 - 0.5 %Cox NorthInterpretation and review of laboratory resultsAbnormalNOPhelps HealthLYMPHOCYTES ABSOLUTE AUTO0.8 LowNOMS Mercy Health Willard HospitalLymphocytes/100 WBC (Bld)14.6 %Low20.5 - 60.0 %[facility] MCH (RBC) [Entitic mass]30.1 pg26.7 - 34.0 pgNOPhelps HealthMCHC (RBC) [Mass/Vol]33.4 g/dL29.9 - 35.2 g/dLCox NorthMCV (RBC) [Entitic vol]90 fL 81.0 - 99.0 fLCox NorthMONOCYTES ABSOLUTE AUTO0.4NOPhelps Health Monocytes/100 WBC (Bld)8.6 %1.7 - 12.0 %Cox NorthNEUTROPHILS ABSOLUTE AUTO 3.8NOMS [facility] HospitalNeutrophils/100 WBC (Bld)74.6 %43.0 - 75.0 %[facility] Platelet mean volume (Bld) [Entitic vol]10.2 fL9.5 - 13.5 fLNOPhelps HealthTBH EO #0.1NOMS HealthcareTBH [id number] [facility] HospitalTB RBC3.99LowNOMS [facility] Willard HospitalTB WBC5.1NOMS HealthcareCLINISYNCNCedar County Memorial HospitalMLR HEMOGLOBIN A1Con 01-12-2025 Glucose [Mass/Vol]100 mg/dLNOPhelps HealthKpcfcdmjvxGyP7n (Bld) [Mass fraction]5.1 %4.5 - 6.2 %[facility] HealthcareComment on above:ADA RECOMMENDED LIMIT 4.0 - 6.0 ADA THERAPEUTIC TARGET < 7.0 ACTION SUGGESTED > 7.0 CLINISYNCNOMS HealthcareConsulton [id number] Alesha Bonilla 1955 F Date Provider Department Center 09/23/[address] [facility] SURG [place] No family history on file Level of Service:[address]600 [place] OFFICE/OUTPATIENT NEW LOW MDM 30 MINUTES Reason for Visit and Comments: Rectal Bleeding [893360][facility] CampusMHPT VAGINITIS DNA PROBEon 99-06-6595ZPRM CANDIDANegativeNEGNOMS HealthcareComment on above:for Fela sp. Method of testing is a DNA probe intended for detection and identification of Fela species, Gardnerella vaginalis, and Trichomonas vaginalis nucleic acid in vaginal fluid specimens from patients with symptoms of vaginitis/vaginosis. MHPT GARDNERELLANegativeNEGNOMS HealthcareComment on above:for Gardnerella vaginalisMHPT SOURCE.VAGINAL SWABNOMS HealthcareMHPT TRICHOMONASNegativeNEGNOMS HealthcareComment on above:for Trichomonas VaginalisOriginal Ordering Provider: CASA CHONG BARTHMYRAINISYNVLADIMIROMS HealthcareVaginitis DNA Probeon 03-64-7520Gohmvvh speciesNegativeNEGATIVEInova Mount Vernon HospitalLoopUp HealthComment on above:for Fela sp. Method of testing is a DNA probe intended for detection and identification of Fela species, Gardnerella vaginalis, and Trichomonas vaginalis nucleic acid in vaginal fluid specimens from patients with symptoms of vaginitis/vaginosis. GARDNERELLA VAGINALISNegativeNEGATIVEBon A[facility] Center At SurpriseLoopUp HealthComment on above: for Gardnerella vaginalisSource.VAGINAL SWABBon SecLoopUp [facility] Medical CenterTrichomonas NegativeNEGATIVEBon [facility] Center At SurpriseLoopUp HealthComment on above:for Trichomonas VaginalisBon A[facility] Center At [email or web address]Riverview Health Institute Comment on above:Result Comment: for Fela sp. Method of testing is a DNA probe intended for detection and identification of Fela species, Gardnerella vaginalis, and Trichomonas vaginalis nucleic acid in vaginal fluid specimens from patients with symptoms of vaginitis/vaginosis. Performed By: #### VAGP #### [address] [place] [address] Pharmacy Sales Representative: Daniel Dyer MD [facility] [address] [place] [address] [address]. [place], [place] [id number] Pharmacy Sales Representative: Dylan RojasgatGrand Lake Joint Township District Memorial Hospital Comment on above:Result Comment: for Gardnerella vaginalisPerformed By: #### VAGP #### [address] [address] Pharmacy Sales Representative: Daniel Dyer MD [facility] [address] [place] [address] [place] [address] Pharmacy Sales Representative: Panda Carbone MDThe University Of Toledo Medical CenteronasHealthsouth Rehabilitation Hospital [facility] Southern ArizonaativeMercy Health [facility] Comment on above:Result Comment: for Trichomonas VaginalisPerformed By: #### VAGP #### [address] [address] Pharmacy Sales Representative: Daniel Dyer MD [facility] [address] [place] [address] Dr. [place], [place] [id number] Pharmacy Sales Representative: DANIEL Rojasochsner medical centertawanna.[facility] SWABSt. Elizabeth Hospital Comment on above:Performed By: #### VAGP #### [facility] [address] [place] [id number] Pharmacy Sales Representative: Daniel Dyer MD [facility] [address] [place] [address] Dr. [place], [place] [id number] Pharmacy Sales Representative: Panda Carbone [facility] TUSCALOOSAMichael VAGINITIS DNA PROBEon 08-21-2024 Interpretation and review of laboratory resultsAbnormalFreeman Cancer InstitutePT CANDIDANegativeNEGNOMS HealthcareComment on above:for Fela sp. Method of testing is a DNA probe intended for detection and identification of Fela species, Gardnerella vaginalis, and Trichomonas vaginalis nucleic acid in vaginal fluid specimens from patients with symptoms of vaginitis/vaginosis. PT GARDNERELLAPositiveAbnormalNEGNOMS HealthcareComment on above:for Gardnerella vaginalisMHPT SOURCE.VAGINAL SWABNOMS HealthcarePT TRICHOMONAS NegativeNEGNOOK HealthcareComment on above:for Trichomonas VaginalisOriginal Ordering Provider: CASA ERVIN HealthcareVaginitis DNA Probe on 07-99-8472SodmfvhRifknfeuAbkjvvQIMGojso Tiffin HospitalComment on above: Result Comment: for Fela sp. Method of testing is a DNA probe intended for detection and identification of Fela species, Gardnerella vaginalis, and Trichomonas vaginalis nucleic acid in vaginal fluid specimens from patients with symptoms of vaginitis/vaginosis. Performed By: #### VAGP #### [facility] [address] [place] [address] Pharmacy Sales Representative: Daniel Dyer MD [address] [place] [address] Pharmacy Sales Representative: Mauricio RojasdnerellaPositiveAbMercy Health Perrysburg HospitalComment on above:Result Comment: for Gardnerella vaginalisPerformed By: #### VAGP #### [address] [address] Pharmacy Sales Representative: Daniel Dyer MD [facility] [address] [place] [address] [place] [address] Pharmacy Sales Representative: Panda Carbone MDTrichomonasEast Liverpool City Hospital Comment on above:Result Comment: for Trichomonas VaginalisPerformed By: #### VAGP #### [address] [address] Pharmacy Sales Representative: Daniel Dyer MD [facility] [address] [place] [address] [place] [address] Pharmacy Sales Representative: Panda Carbone MDVaginitis DNA Probeon 50-10-7573Amolsw.VAGINAL SWABNormFlower Hospital HospitalComment on above:Performed By: #### VAGP #### [address] [address] Pharmacy Sales Representative: Daniel Dyer MD [facility] [address] [place], [place] 7[address] Pharmacy Sales Representative: ERICH Rojas TOMOSYNTHESIS SCREENING BIon 86-85-6424[address] [address] Mammography Report Signed Patient: ALESHA BONILLA MR#: [id number] : 1955 Acct:[id number] Age/Sex: 68 / F ADM Date: 05/11/24 Loc: MAMMO Attending Dr: Fay Pascal NP Ordering Physician: Fay Pascal NP Results: Date of Service: 05/11/24 Follow Up: Procedure(s): MM tomosynthesis screening BI Accession Number(s): [id number] cc: Fay Pascal NP Patient Name: ALESHA BONILLA MR#: [id number] : 1955 Exam Date: 05/11/2024 Ordering Doctor: YAJAIRA Pascal SENIOR BI DEVELOPER RADIOLOGY REPORT PROCEDURE: MM TOMOSYNTHESIS SCREENING BI [...] LOCATION: [facility] BREAST COMPOSITION: There are scattered areas of [...] Panda Lange M.D. Signed By: 05/11/241421 DD/ 20 TD/TT: Label Paster:TBHRadiology, Radiologist, - 05/11/2024 [place] [address] Mammography Report Signed Patient: ALESHA BONILLA MR#: [id number] : 1955 Acct:[id number] Age/Sex: 68 / F ADM Date: 05/11/24 Loc: MAMMO Attending Dr: Fay Pascal NP Ordering Physician: Fya Pascal NP Results: Date of Service: 05/11/24 Follow Up: Procedure(s): MM tomosynthesis screening BI Accession Number(s): [id number] cc: Fay Pascal NP Patient Name: ALESHA BONILLA MR#: [id number] : 1955 Exam Date: 05/11/2024 Ordering Doctor: [...] LOCATION: [facility] BREAST COMPOSITION: There are scattered areas of [...] Lange M.D. Signed By: 05/11/24 1422 DD/ 20 TD/TT: Label Paster: OSMAR HealthcareRadiology Study observation (narrative)Cox NorthMM TOMOSYNTHESIS SCREENING BIOrdered By: Radiologist Radiology on 87-68-0096OJIHCox North Work Phone: aLL THYROID STIM HORMONEon [phone] and review of laboratory resultsAbnoalSac-Osage Hospital Qn9.973 m[IU]/LHigh VA [facility]ITAL HealthcareCLINISYNCNOMS HealthcareXR knee RT 4V*on 00-64-7023NF knee RT 4V* [facility] [address] [place] [address] XRay Report Signed Patient: Alesha Bonilla MR#: [id number] : 1955 Acct:[id number] Age/Sex: 68 / F ADM Date: 03/19/24 Loc: [facility] Room: Type: [facility] Attending Dr: Bright Mccall II, MD Copies to: Bright Mccall MD Ordering Provider: Bright Mccall MD Date of Service: 03/19/24 XR/XR knee RT 4V*: M25.561 - Pain in right knee ([id number]) XR/XR pelvis 1-2V: M25.561 - Pain in right knee Single view of the pelvis plain film HISTORY: RIGHT knee deformity for 15 years COMPARISON: None ACUTE FINDINGS: None BONY ALIGNMENT: Adequate SOFT TISSUES: Unremarkable DEGENERATIVE CHANGE:Unremarkable INTRAPELVIC STRUCTURES: Unremarkable POSTSURGICAL CHANGES:None XR/XR pelvis 1-2V IMPRESSION:Unremarkable exam. 4 views RIGHT knee Valgus deformity. Bian-mk-eqqk contact lateral degenerative change. Small joint effusion. No acute bony findings. IMPRESSION: Valgus deformity of the RIGHT knee. Extensive rkbq-ud-qofe lateral degeneration. Impression dictated by: Dru Hu M.D.03/19/2024 3:48 PM Dictation Location: [place] [address] Transcribed By: [facility] 03/19/24 1548 Dictated By: Dru Hu DO 03/19/24 1547 Signed By: 03/19/24 1548[facility] Physician GroupCT ECHO DOPPLER COMPLETEon 49-55-1457[place]gpHarrison[place] [address] Cardiology Report Signed Patient: ALESHA BONILLA MR#: [id number] : 1955 Acct:[id number] Age/Sex: 68 / F ADM Date: 01/15/24 Loc: CARD Attending Dr: Fay Pascal NP Ordering Physician: Fay Pascal NP Date of Service: 01/15/24 Procedure(s): CA echo doppler complete Accession Number(s): [id number] cc: Fay Pascal NP Patient Name: ALESHA BONILLA MR#: [id number] : 1955 Exam Date: 01/15/2024 Ordering Doctor: [...] Area (VTI): 2.20 cm2, 2.20 cm2 Deceleration Ralls: 1.95 m/s2 Pressure Half-Time: 602.12 ms Peak [...] Lambert Gaitan M.D. on 01/15/2024 at 11:16 (more content not included)...TBHRadiology, Radiologist, - 01/15/2024 [place] [address] Cardiology Report Signed Patient: ALESHA BONILLA MR#: [id number] : 1955 Acct:[id number] Age/Sex: 68 / F ADM Date: 01/15/24 Loc: CARD Attending Dr: Fay Pascal NP Ordering Physician: Fay Pascal NP Date of Service: 01/15/24 Procedure(s): CA echo doppler complete Accession Number(s): [id number] cc: Fay Pascal NP Patient Name: ALESHA BONILLA MR#: [id number] : 1955 Exam Date: 01/15/2024 Ordering Doctor: [...] Area (VTI): 2.20 cm2, 2.20 cm2 Deceleration Ralls: 1.95 m/s2 Pressure Half-Time: 602.12 ms Peak [...] Signed By: 01/15/24 1117 DD/ 1116 TD/TT: Label Paster: OSMAR HealthcareRadiology Study observation (narrative)NOM HealthcareCA ECHO DOPPLER COMPLETEOrdered By: Radiologist Radiology on 69-41-8286NBFM Healthcare Work Phone: Urine Cultureon 51-19-3603Bbrlraon identified Cx Nom (U)<9,000 colonies/ml mixed bacterial skin contaminants 2 Days PERFORMED BY: [place] [address] PATHOLOGIST RULING MACHINE SET UP OPERATOR DON BOSTON M.D.[facility] Physician GroupComment on above:Performed By: #### CUU #### [place] [address] USAOutside Colonoscopyon 79-55-0610Bhtxpuw Colonoscopy [id number]#1.00TIFFGuernsey Memorial Hospital 77-41-4499Lwmdzbymb From: Siobhan Jernigan LPN To: GSN - Clinical; Sent: 08/01/2023 14:37:14 EDT Show up: 07/02/2033 07:00:00 EST Subject: colonoscopy recall Due Date/Time: 07/30/2033 07:00:00 EDT Reminder/Recall Patient due for screening colonoscopy 07/30/2033.[facility] CenterTransfer Inon 76-39-2733Tjzejbmb In [id number]#1.00TIFFNormalChildren'S Hospital Of ColumbusBlood Urea Nitrogenon 05-74-2993Yicd nitrogen [Mass/Vol]16 mg/dLNormal7-25 [facility] Physician GroupComment on above:Order Comment: STAT FOR CT Performed By: #### BUN, CREAT #### [facility] [address] [place] [address] USACT abdomen pelvis w conon 09-98-7814JG abdomen pelvis w [facility] [address] [place] [address] Scan Report Signed Patient: Alesha Bonilla MR#: [id number] : 1955 Acct:[id number] Age/Sex: 68 / F ADM Date: 07/18/23 Loc: CT Room: Type: [facility] Attending Dr: Fay Pascal Copies [...] Cox Jr., D.OBlanca07/18/2023 11:49 AM Dictation Location: [place] [address] Transcribed By: [facility] 07/18/23 1149 Dictated By: Jose Miguel Cox Jr DO 07/18/23 1144 Signed By: 07/18/23 1149[facility] Physician GroupCreatinineon 07-18-2023 Creatinine [Mass/Vol]0.82 mg/dLNormal0.60-1.20[facility] Comment on above:Order Comment: STAT FOR CTPerformed By: #### BUN, CREAT #### [facility] [address] [place] [address] USAGFR/1.73 sq M.predicted MDRD (S/P/Bld) [Vol rate/Area] mL/min/{1.73_m2}NormalThe [facility] Physician [facility] Behavior[facility] HealthComment on above:Order Comment: STAT FOR CTResult Comment: PERFORMED BY: [place] [address] PATHOLOGIST RULING MACHINE SET UP OPERATOR DON BOSTON M.D.Performed By: #### BUN, CREAT #### [facility] [address] [place], [place] [address] USAFacesheeton 90-50-5675Mbuztlstt [id number]#1.00TIFFNoSelect Medical [facility]ty [facility] NorthAmbulatory Visit Summaryon 46-97-6113Lhsgyherip Visit Summary ALESHA BONILLA :1955 Visit Date:07/10/2023 Ambulatory Visit Instructions Your Care Team Attending Physician - MERCY MARTINEZ, Jose M Licona Primary Care Physician - NAIDA GATES, FAY Bird Referring Physician - FAY PASCAL CNP This [...] you for choosing us for your care. [facility] CenterPhysician Referralon 06-28-2023 Physician [id number]#1.00TIFFNormThe Bellevue HospitalALL CBC WITH AUTO DIFFon 57-12-5383IUBJKMIEG ABSOLUTE AUTO 0.0NOMS HealthcareBasophils/100 WBC (Bld)0.8 %0.2 - 2.0 %NOMS Healthcare Eosinophils/100 WBC (Bld)1.2 %0.9 - 7.0 %NOMS HealthcareErythrocyte distribution width (RBC) [Ratio]12.5 %11.0 - 15.0 %NOMS HealthcareHematocrit (Bld) [Volume fraction]39.2 %36.0 - 48.0 %NOM HealthcareHemoglobin (Bld) [Mass/Vol]12.9 g/dL 12.0 - 16.0 g/dLNOOK HealthcareIMMATURE GRANULOCYTES ABS AUTO0.01NOMS Healthcare Immature granulocytes/100 WBC (Bld)0.2 %0.0 - 0.5 %NOM HealthcareInterpretation and review of laboratory resultsAbnormalNOOK HealthcareLYMPHOCYTES ABSOLUTE AUTO0.7LowNOMS HealthcareLymphocytes/100 WBC (Bld)14.3 %Low20.5 - 60.0 %NOMWashington County Memorial HospitalMCH (RBC) [Entitic mass]29.9 pg26.7 - 34.0 pgNOPhelps HealthMCHC (RBC) [Mass/Vol]32.9 g/dL29.9 - 35.2 g/dLNOPhelps HealthMCV (RBC) [Entitic vol]90.7 fL 81.0 - 99.0 fLNOPhelps HealthMONOCYTES ABSOLUTE AUTO0.5NOMS [facility] Monocytes/100 WBC (Bld)9.4 %1.7 - 12.0 %NOMWashington County Memorial HospitalNEUTROPHILS ABSOLUTE AUTO 3.9NOMS HealthcareNeutrophils/100 WBC (Bld)74.1 %43.0 - 75.0 %[facility] Platelet mean volume (Bld) [Entitic vol]10.2 fL9.5 - 13.5 fLNOPhelps HealthTBH EO #0.1NOMS HealthcareTB EVE111OHXP [facility] RBC4.32NOMS [facility] Willard HospitalTB WBC 5.2NOMS HealthcareCLINISYNCNOMS HealthcareMM TOMOSYNTHESIS SCREENING BIon 99-24-8905LnzHarrison[place] [address] Mammography Report Signed Patient: Alesha Bonilla MR#: [id number] : 1955 Acct:[id number] Age/Sex: 67 / F ADM Date: 05/10/23 Loc: MAMMO Attending Dr: Phoenix Garner M.D. Ordering Physician: Phoenix Garner M.D. Results: Date of Service: 05/10/23 Follow Up: Procedure(s): MM tomosynthesis screening BI Accession Number(s): [id number] cc: Phoenix Garner M.D. Patient Name: ALESHA BONILLA MR#: [id number] : 1955 Exam Date: 05/10/2023 Ordering Doctor: DR Phoenix Garner . RADIOLOGY REPORT PROCEDURE: MM TOMOSYNTHESIS SCREENING BI [...] LOCATION: [facility] BREAST COMPOSITION: Scattered areas fibroglandular density. FINDINGS: [...] BIOPSIED. Dictated by: Melyssa Johnson M.D. on 05/10/2023 at 14:48 Approved by: Melyssa Johnson M.D. on 05/10/2023 at 14:49 Dictated By: Melyssa Johnson M.D. Signed By: 05/10/23 1450 DD/ 1449 TD/TT: Label Paster:TBHRadiology, Radiologist, MD - 05/10/2023 [place] [address] Mammography Report Signed Patient: Alesha Bonilla MR#: [id number] : 1955 Acct:[id number] Age/Sex: 67 / F ADM Date: 05/10/23 Loc: MAMMO Attending Dr: Phoenix Garner M.D. Ordering Physician: Phoenix Garner M.D. Results: Date of Service: 05/10/23 Follow Up: Procedure(s): MM tomosynthesis screening BI Accession Number(s): [id number] cc: Phoenix Garner M.D. Patient Name: ALESHA BONILLA MR#: [id number] : 1955 Exam Date: 05/10/2023 Ordering Doctor: DR Phoenix Garner . RADIOLOGY REPORT PROCEDURE: MM TOMOSYNTHESIS SCREENING BI [...] LOCATION: [facility] BREAST COMPOSITION: Scattered areas fibroglandular density. FINDINGS: [...] BIOPSIED. Dictated by: Melyssa Johnson M.D. on 05/10/2023 at 14:48 Approved by: Melyssa Johnson M.D. on 05/10/2023 at 14:49 Dictated By: Melyssa Johnson M.D. Signed By: 05/10/23 1451 DD/ 1449 TD/TT: Label Paster: [facility] NorthRadiology Study observation (narrative)[facility] TOMOSYNTHESIS SCREENING BIOrdered By: Radiologist Radiology on 52-41-4152LBCK [employer] Work Phone: cYung [phone] Visit (MARCO A) ALESHA BONILLA ([id number]) 1955 F Date Time Provider Department 07/30/22 10:00 AM LORRAINE MCKINLEY During your visit today, we recorded the following information about you: Temperature Pulse Blood pressure Weight 97.8 degrees 65/minute 109/59 65.8 kg Height 1.676 m Lorraine Mckinley PA-C 07/30/2022 11:25 AM Signed COLORECTAL SURGERY [...] and colonoscopy ( brought to front office developer to be scanned in) were completed [...] or other liver disea (more content not included)...NormalBrown Memorial HospitalTORY PHYSICALon 45-23-1517EHHWUEI PHYSICALHNO ID: [id number] Author: Lorraine cMkinley PA-C Service: ? Author Type: Physician Rn Liaison Type: HANDP Filed: 07/30/2022 11:25 AM Note [...] and colonoscopy ( brought to front office developer to be scanned in) were completed [...] stimulator, spinal cord stimula (more content not included)...NormalUk HealthcareMG MAMM SCREEN 3D NEETA CADon 57-04-4184HX MAMM SCREEN 3D NEETA CADPatient: ALESHA BONILLA Exam Date: 05/09/2022 : 1955 Gender:F Ordering : DR PHOENIX GARNER . Admission #: [id number] Family : Order #: [id number] CLICK HERE TO VIEW EXAM RADIOLOGY REPORT [...] LOCATION: [facility] BREAST COMPOSITION: Scattered areas fibroglandular density. FINDINGS: [...] by: Melyssa Johnson M.D. on 05/09/2022 at 10:59NormalThGalion Hospital AUTO DIFFon 78-74-7317DMBG #0.0 103/ulNormal0.0-0.1The [facility] CincinnatiComment on above:Performed By: #### CBC #### [facility] [address] [place] [address] Dr. William GarcíaBasophils/100 WBC (Bld)0.8 %Normal0.2-2.0[facility] Comment on above:Performed By: #### CBC #### [facility] [address] [place] [address] Dr. William Hodgson #0.1 103/ulNormal0.0-0.7The [facility] - CincinnatiComment on above: Performed By: #### CBC #### [facility] [address] [place] [address] Dr. William Puentesosinophils/100 WBC (Bld)2.0 %Normal0.9-7.0The [facility] Comment on above:Performed By: #### CBC #### [facility] [address] [place] [address] Dr. William Puentesrythrocyte distribution width (RBC) [Ratio]12.7 %Esjkkr66.0-15.0 The [facility] CincinnatiComment on above:Performed By: #### CBC #### [facility] [address] [place] [address] Dr. William GarcíaHematocrit (Bld) [Volume fraction]39.2 %Bzslmi52.0-48.0The [facility] CincinnatiComment on above:Performed By: #### CBC #### [facility] [address] [place] [address] Dr. William GarcíaHemoglobin (Bld) [Mass/Vol]12.8 g/kZXarlyz73.0-16.0The [facility] CincinnatiComment on above:Performed By: #### CBC #### [facility] [address] [place] [address] [address] William Coates #0.01 10e3/ulNormal0.00-0.03The [facility] - CincinnatiComment on above:Performed By: #### CBC #### [facility] [address] [place] [address] [address] William Coates %0.2 %Normal0.0-0.5The [facility] - CincinnatiComment on above: Performed By: #### CBC #### [facility] [address] [place] [address] [address] William Johnston #0.9 103/ulCritically low1.2-3.8The [facility] Comment on above:Performed By: #### CBC #### [facility] [address] [place] [address] Dr. William Robersonhocytes/100 WBC (Bld)17.4 %Critically low20.5-60.0The [facility] - CincinnatiComment on above:Performed By: #### CBC #### [facility] [address] [place] [address] [address] William WrightUAL DIFF REQNONormalThe [facility] Hospital - CincinnatiComment on above: Performed By: #### CBC #### [facility] [address] [place] [address] Dr. William Reyes (RBC) [Entitic mass]30.0 bfXmpiaj43.7-34.0The [facility] CincinnatiComment on above:Performed By: #### CBC #### [facility] [address] [place] [address] Dr. William Reyes (RBC) [Mass/Vol]32.7 g/kOLfbqnm08.9-35.2The [facility] CincinnatiComment on above:Performed By: #### CBC #### [facility] [address] [place] [address] Dr. William Reyes (RBC) [Entitic vol]91.8 oIXhftti60.0-99.0The [facility] - CincinnatiComment on above:Performed By: #### CBC #### [facility] [address] [place] [address] [address] William Santos #0.5 103/ulNormal0.3-0.8The [facility] CincinnatiComment on above:Performed By: #### CBC #### [facility] [address] [place] [address] [address] William Nguyễnocytes/100 WBC (Bld)10.7 %Normal1.7-12.0The [facility] Comment on above:Performed By: #### CBC #### [facility] [address] [place] [address] Dr. William Okeefe #3.5 103/ulNormal1.4-6.5The [facility] CincinnatiComment on above:Performed By: #### CBC #### [facility] [address] [place] [address] Dr. William Brockutrophils/100 WBC (Bld)68.9 %Rdonnu35.0-75.0The [facility] - CincinnatiComment on above:Performed By: #### CBC #### [facility] [address] [place] [address] Dr. William Sullivan mean volume (Bld) [Entitic vol]10.3 fLNormal9.5-13.5The [facility] CincinnatiComment on above:Performed By: #### CBC #### [facility] [address] [place] [address] Dr. William GarcíaPLT189 103/hiHgulnb184-194Ftn [facility] CincinnatiComment on above: Performed By: #### CBC #### [facility] [address] [place] [address] Dr. William GarcíaRBC4.27 106/ulNormal4.20-5.40The [facility] - CincinnatiComment on above:Performed By: #### CBC #### [facility] [address] [place] [address] Dr. William GarcíaWBC5.1 103/ulNormal4.0-11.0The [facility] - CincinnatiComment on above: Performed By: #### CBC #### [facility] [address] [place] [address] [address] William Mock T3on 26-82-0431QZSL T32.63 pg/mlLNormal2.18-3.98The [facility] on above:Performed By: #### FT3, TSH, AST, LIPID, ALT, BMP ####[facility] [address] [place] [address]Dr. William GarcíaFREE T4on 43-34-0986Zzhv T4 [Mass/Vol]1.42 ng/dLNormal0.76-1.46The [facility] CincinnatiComsurgeons [facility] on above:Performed By: #### FT4, VITAD #### [facility] [address] [place] [address] Dr. William GarcíaGLYCOHEMOGLOBIN A1Con 56-02-7772ZQX RECOMMENDATIONSEE BELOWUniversity Hospitals Portage Medical CenterComsurgeons choice medical center on above:Result Comment: ADA RECOMMENDED LIMIT 4.0 - 6.0 ADA THERAPEUTIC TARGET < 7.0 ACTION SUGGESTED > 7.0Performed By: #### A1C #### [facility] [address] [place] [address] Dr. William GarcíaGlucose [Mass/Vol]105 mg/dLNoOhioHealth Mansfield Hospital on above:Performed By: #### A1C #### [facility] [address] [place] [address] Dr. William GarcíaHbA1c (Bld) [Mass fraction]5.3 %Normal4.5-6.2The [facility] on above:Performed By: #### A1C #### [facility] [address] [place] [address] Dr. William GarcíaLIPID PROFILEon 69-81-5859PEHU-HDL RATIO NORMSEE [facility] ShawComsurgeons choice medical center on above:Result Comment: 3.3 - 4.4 LOW RISK 4.4 - 7.1 AVERAGE RISK 7.1 - 11.0 MODERATE RISK >11.0 HIGH RISKPerformed By: #### FT3, TSH, AST, LIPID, ALT, BMP ####[facility] [address] [place] [address]Dr. Yilan ChangCholesterol [Mass/Vol]222 mg/dLCritically high<=200[facility] on above:Performed By: #### FT3, TSH, AST, LIPID, ALT, BMP ####[facility] [address] [place], [place] [address]Dr. Yilan ChangCholesterol in HDL [Mass/Vol]76 mg/dLCritically high 40-60[facility] on above:Performed By: #### FT3, TSH, AST, LIPID, ALT, BMP ####[facility] [address] [place], [place] [address]Dr. Yilan ChangCholesterol in LDL [Mass/Vol]136.4 mg/dLParkview Health Bryan Hospital on above:Performed By: #### FT3, TSH, AST, LIPID, ALT, BMP ####[facility] [address] [place], [place] [address]Dr. Yilan ChangCholesterol.total/Cholesterol in HDL [Mass ratio]2.9 {ratio}Normal The [facility] CincinnatiComsurgeons [facility] medical center on above:Performed By: #### FT3, TSH, AST, LIPID, ALT, BMP ####[facility] [address] [place], [place] [address]Dr. Yilan ChangHDL NORMAL> or = 60 mg/dl - LOW CARDIOVASCULAR RISK <40 mg/dl - HIGH CARDIOVASCULAR RISKCincinnati Children's Hospital Medical CenterComsurgeons choice medical center on above: Performed By: #### FT3, TSH, AST, LIPID, ALT, BMP ####[facility] [address] [place], [place] [address]Dr. Yilan ChangLDL CALC NORMALSEE BELOWCincinnati Children's Hospital Medical CenterComsurgeons choice medical center on above:Result Comment: <100 mg/dl OPTIMAL 100 - 129 mg/dl NEAR OR ABOVE OPTIMAL 130 - 159 mg/dl BORDERLINE HIGH 160 - 189 mg/dl HIGH >190 mg/dl VERY HIGHPerformed By: #### FT3, TSH, AST, LIPID, ALT, BMP ####[facility] [address] [place], [place] [address]Dr. Yilan ChangTriglyceride [Mass/Vol]48 mg/dLNormal<=150The [facility] - CincinnatiComment on above:Performed By: #### FT3, TSH, AST, LIPID, ALT, BMP ####[facility] [address] [address]Dr. William ChangVLDL CALC9.6 mg/dLNormalThe [facility]Com[facility] on above: Performed By: #### FT3, TSH, AST, LIPID, ALT, BMP ####[facility] Raauneuww[address] [place], [place] [address]Dr. Annikalan ChangPROF CHEM 8 (BAS METB)on 79-50-5322Bbvza gap [Moles/Vol]11.6 mmol/LNormalUniversity Hospitals Geneva Medical CenterComsurgeons choice medical center on above:Performed By: #### FT3, TSH, AST, LIPID, ALT, BMP ####[facility] Rjlxxibc[address] [place], [place] [address]Dr. Yilan ChangCalcium [Mass/Vol]9.0 mg/dLNormal8.5-10.1[facility] Geneva [facility] CenterComsurgeons [facility] on above:Performed By: #### FT3, TSH, AST, LIPID, ALT, BMP ####[facility] Ukqxchhbbq[address] [place], [place] [address]Dr. Yilan García Chloride [Moles/Vol]106 mmol/VDwuzvi45-426Kij [facility] on above: Performed By: #### FT3, TSH, AST, LIPID, ALT, BMP ####[facility] Zcrsryoojb[address] [place], [place] [address]Dr. Yilan ChangCO2 [Moles/Vol]28.4 mmol/XAzosfo84.0-32.0The [facility] on above: Performed By: #### FT3, TSH, AST, LIPID, ALT, BMP ####[facility] Omqkzjbows[address] [place], [place] [address]Dr. Annikalan ChangCreatinine [Mass/Vol]0.64 mg/dLNormal0.55-1.02The [facility] on above: Performed By: #### FT3, TSH, AST, LIPID, ALT, BMP ####[facility] [address] [address]Dr. Yilan ChangEGFR-AF BARBADIAN>60Normal>=60The [facility] CincinnatiComment on above:Performed By: #### FT3, TSH, AST, LIPID, ALT, BMP ####[facility] [address] [address]Dr. Yilan ChangEGFR-NON AF BARBADIAN>60Normal>=60The [facility] on above:Performed By: #### FT3, TSH, AST, LIPID, ALT, BMP ####[facility] Stsrtoz[address] [place], [place] [address]Dr. Yilan ChangGlucose [Mass/Vol]87 mg/xKMpjryq34-696Xpg [facility] on above:Performed By: #### FT3, TSH, AST, LIPID, ALT, BMP ####[facility] Jdetjfjlwp[address] [place], [place] [address]Dr. Yilan ChangPotassium [Moles/Vol]4.0 mmol/LNormal3.5-5.1The [facility] on above: Performed By: #### FT3, TSH, AST, LIPID, ALT, BMP ####[facility] Zwhhd[address] [place], [place] [address]Dr. Yilan ChangSodium [Moles/Vol]142 mmol/PItlnvr095-742Iry [facility] on above: Performed By: #### FT3, TSH, AST, LIPID, ALT, BMP ####[facility] Zkhqrxmrw[address] [place], [place] [address]Dr. Yilan ChangUrea nitrogen [Mass/Vol]14.0 mg/dLNormal7.0-18.0The [facility] on above: Performed By: #### FT3, TSH, AST, LIPID, ALT, BMP ####[facility] Nouhzh[address]te[address] [place], [place] [address]Dr. Yilan ChangUrea nitrogen/Creatinine [Mass ratio]21.9 mg/mgNormalThe [facility] CincinnatiComsur[facility] on above:Performed By: #### FT3, TSH, AST, LIPID, ALT, BMP ####[facility] [address] [address]Dr. William Harmon 06-78-9405TZV [Catalytic activity/Vol]18 U/HNwhyde32-70YzoUniversity Hospitals Geneva Medical Center Comment on above:Performed By: #### FT3, TSH, AST, LIPID, ALT, BMP #### [facility] Laboratory [address] [address] [address] William Tipton 27-17-4893FNE [Catalytic activity/Vol]24 U/HJfwdzs51-90CpeUniversity Hospitals Geneva Medical CenterComment on above:Performed By: #### FT3, TSH, AST, LIPID, ALT, BMP ####[facility] [address] [address]Dr. William GarcíaJERODBlanen 87-29-1154ILG4.729 uIU/mLNormal0.358-3.740[facility] Comment on above:Performed By: #### FT3, TSH, AST, LIPID, ALT, BMP ####[facility] [address] [address]DrBlanca Blake TEQUILAACMC Healthcare SystemComment on above:Result Comment: <0.34 UIU/ml HYPERTHYROID 0.34-5.60 UIU/ml EUTHYROID >5.60 UIU/ml HYPOTHYROIDPerformed By: #### FT3, TSH, AST, LIPID, ALT, BMP ####[facility] [address] [address]Dr. William GarcíaVITAMIN D 25 OHon 10-18-2021 VIT D 25-OH25.2 ng/mLNormalUniversity Hospitals Geneva Medical CenterComment on above:Performed By: #### FT4, VITAD #### [facility] Laboratory [address] [place] [address] Dr. William MANDELMarilyn [facility], Edwin ShawComment on above: Result Comment: <20 ng/mL Vit D deficient 20 - <30 ng/mL Vit D insufficient 30 - 100 ng/mL Vit D sufficient >100 ng/mL Potential ToxicityPerformed By: #### FT4, VITAD #### [facility] Laboratory [address] [place] [address] Dr. William Mock T3 LABCORPon 53-42-3311Dzvvwcdfrcypkoyf (T3) Free2.5 pg/mL Normal2.0-4.4The [facility] CincinnatiComment on above:Performed By: #### FT3LC #### [facility] Laboratory [address] [place] [address] Dr. William Del Rosario D 25-OH LABCORPon 71-41-3529Dxnvbnv D, 25-Fisazif11.2 ng/mL Critically low30.0-100.0The [facility] CincinnatiComment on above:Result Comment: Vitamin D deficiency has been defined by the [place] [employer] and an Endocrine Society practice guideline as a level of serum 25-OH vitamin D less than 20 ng/mL (1,2). The Endocrine Society went on to further define vitamin D insufficiency as a level between 21 and 29 ng/mL (2). 1. IOM ([place] [employer]). 2010. Dietary reference intakes for calcium and D. [place]: The National Academies Press. 2. Ashley MF, Nicole NC, Ramona-Hernan ALMEIDA, et al. Evaluation, treatment, and prevention of vitamin D deficiency: an Endocrine Society clinical practice guideline. JCEM. 2010; 96(7):1911-30.Performed By: #### VITADLC #### [facility] Laboratory [address] [place] [address] Dr. William Mock T4on 47-33-4517Masb T4 [Mass/Vol]0.96 ng/dLNormal0.78-2.19 The [facility] CincinnatiComment on above:Performed By: #### FT4 #### [facility] Laboratory [address] [place] [address] Dr. William Fritz 89-41-6587CBK3.014 uIU/mLCritically high0.470-4.680The [facility] CincinnatiComment on above:Performed By: #### TSH #### [facility] Laboratory [address] [place] [address] Dr. Yilan ChangKindred Hospital DaytonComment on above: Result Comment: <0.34 UIU/ml HYPERTHYROID 0.34-5.60 UIU/ml EUTHYROID >5.60 UIU/ml HYPOTHYROIDPerformed By: #### TSH #### [facility] [address] [place], [place] [address] Dr. William García Vital Signs Date TimeVital SignValuePerforming KmbgoqsyfQuedelql89-74-1503 10:06-0400Body mass index (BMI) [Ratio]22.11 kg/m2Fay Chadmariferdexter EQUIPMENT ANALYST Work Phone: [facility] NorthTytjnihsrl94-86-7955 10:06-0400Body temperature 98.1 [degF]Fay Sosadexter EQUIPMENT ANALYST Work Phone: [facility] NorthBrkjuwwhdv91-08-5274 10:06-0400Body ppodey31.14 kgFay Chadmariferdexter EQUIPMENT ANALYST Work Phone: [facility] NorthYsnugjcscl66-85-0632 10:06-0400Diastolic blood hzjnebte44 mm[Hg]Fay Sosadexter EQUIPMENT ANALYST Work Phone: [facility] NorthLrfxesmzoy11-46-0899 10:06-0400Heart rate84 /min Fay Sosadexter EQUIPMENT ANALYST Work Phone: [facility] NorthBxqqmardyg34-17-6365 10:06-0400Respiratory rate18 /minLisa Sosadexter EQUIPMENT ANALYST Work Phone: [facility] NorthBgxwozrahc45-62-0647 10:06-9249CsN2% (BldA) [Mass fraction]99 %Fay Sosadexter EQUIPMENT ANALYST Work Phone: [facility] NorthDxkkpenepr71-65-1178 10:06-0400Systolic blood etrlqowk41 mm[Hg]Fay Sosadexter EQUIPMENT ANALYST Work Phone: [facility] NorthEvncfycxgy66-32-3892 09:14-0400Body ahwxua096.6 cmSteven Rusher DPM Work Phone: [facility] NorthIjdvynaacr44-47-3160 09:14-0400Body mass index (BMI) [Ratio]22.11 kg/e3Mlxuws Jayla DPM Work Phone: [facility] NorthEwtqxprcwo62-33-0815 09:14-0400Body ihmdml95.14 kgStevjoel Dickerson DPM Work Phone: [facility] NorthGsyzxoimnn99-54-0118 09:17-0400Body vsmopr979.64 cmMD Bright Mccall II Work Phone: [facility]10-30-2024 09:17-0400 Body mass index (BMI) [Ratio]21.9 kg/m2MD Bright Cal II Work Phone: [facility]10-30-2024 09:17-0400 Body rswaht64.68 kgMD Bright Mccall II Work Phone: [facility]10-02-2024 09:00-0400 Body .6 Eddieisa Naida EQUIPMENT ANALYST Work Phone: [facility] NorthSvjnrzhsnf42-77-8759 09:00-0400Body mass index (BMI) [Ratio]22.21 kg/m2Lisa Naida EQUIPMENT ANALYST Work Phone: [facility] NorthKaveoyqaiq21-99-5965 09:00-0400Body temperature 98.1 [degF]Fay Pascal EQUIPMENT ANALYST Work Phone: [facility] NorthQdwywciwgg27-38-1882 09:00-0400Body vuurcf65.41 kgLisa Naida EQUIPMENT ANALYST Work Phone: [facility] NorthVmlywgjemr85-75-2874 09:00-0400Diastolic blood eglekyzo87 mm[Hg]Fay Naida EQUIPMENT ANALYST Work Phone: [facility] NorthTrfajhxxcz16-07-2869 09:00-0400Heart rate59 /min Fay Naida EQUIPMENT ANALYST Work Phone: [facility] NorthSmfcrfxlda76-33-2647 09:00-0400Respiratory rate19 /minLisa Pascal EQUIPMENT ANALYST Work Phone: [facility] NorthKqnvmkfznq48-36-9129 09:00-2026MeP2% (BldA) [Mass fraction]98 %Fay Naida EQUIPMENT ANALYST Work Phone: [facility] NorthFrsanvzkxt85-50-5974 09:00-0400Systolic blood jovmmmsr11 mm[Hg]Fay Federicaz EQUIPMENT ANALYST Work Phone: [facility] NorthKxqxwguhye13-00-2768 10:37-0400Body lgzujk039.6 cmLisa Federicaz EQUIPMENT ANALYST Work Phone: [phone] [place], [place] [address]Sehuwhvpxl99-55-8310 10:37-0400Body mass index (BMI) [Ratio]21.82 kg/m2Lisa Federicaz EQUIPMENT ANALYST Work Phone: [phone] [place], [place] [address]Shcprccsde48-04-4742 10:37-0400Body temperature 97.5 [degF]Fay Federicaz EQUIPMENT ANALYST Work Phone: [facility] NorthMtqnpkmkhn31-93-7891 10:37-0400Body txlarb39.33 kgLisa Federicaz EQUIPMENT ANALYST Work Phone: [facility] NorthLahgbragqe64-52-1649 10:37-0400Diastolic blood qtsysarl21 mm[Hg]Fay Federicaz EQUIPMENT ANALYST Work Phone: [facility] NorthLggdbcsbvr47-30-4160 10:37-0400Heart rate61 /min Fay Ianholz EQUIPMENT ANALYST Work Phone: [facility] NorthTgidcramib72-75-3398 10:37-0400Respiratory rate18 /minLisa Federicaz EQUIPMENT ANALYST Work Phone: [facility] NorthTtocrxlegl63-80-7375 10:37-6426IcH8% (BldA) [Mass fraction]98 %Fay Ianholz EQUIPMENT ANALYST Work Phone: [facility] NorthObysnpbevq34-44-6948 10:37-0400Systolic blood zsjoqolp591 mm[Hg]Fay Ianholz EQUIPMENT ANALYST Work Phone: [facility] NorthXmxnpoitsh12-86-1645 17:43-0400Body .64 [facility]07[facility]2024 17:43-0400Body mass index (BMI) [Ratio]21.7 kg/k5NzumvlqdvMiddletown Hospital07-16-2024 17:43-0400Body uptbbqfybnm68.8 [degF][facility]07-16-2024 17:43-0400Body ouplza00.89 kgMiddletown Hospital07-16-2024 17:43-0400Diastolic blood cvduiyzb92 mm[Hg][facility]07-16-2024 17:43-0400 Heart rate86 /[facility]07-16-2024 17:43-0400 Respiratory rate16 /[facility]07-16-2024 17:43-0400 SaO2% (BldA) [Mass fraction]96 %[facility]07-16-2024 17:43-0400Systolic blood ekzqcoqk166 mm[Hg][facility] 07-10-2023 14:08-0500Blood Pressure LocationMichael NILL [facility]02-21-2024 14:08-0500Diastolic blood ftglchuj52 mm[Hg]Jose M NILL [facility]02-21-2024 14:08-0500Heart rate 74 /minMichael NILL [facility]02-21-2024 14:08-0500 Respiratory rate16 /minMichael NILL [facility]02-21-2024 14:08-0500Systolic blood ybwdintv457 mm[Hg]Jose M NILL [facility]02-08-2024 09:43-0500Body mooilk263.6 Aleja Pascal EQUIPMENT ANALYST Work Phone: [facility] NorthIbuxeypfxb45-07-9122 09:43-0500Body mass index (BMI) [Ratio]21.89 kg/m2Fay Pascal EQUIPMENT ANALYST Work Phone: [facility] NorthZvjzbovbug79-77-6781 09:43-0500Body temperature 97.11 [degF]Fay Pascal EQUIPMENT ANALYST Work Phone: [facility] NorthFqeiirjvwm38-78-6584 09:43-0500Body aosvpu99.51 kgFay Pascal EQUIPMENT ANALYST Work Phone: noPhelps HealthOshcmkhdnf21-65-5830 09:43-0500Diastolic blood dolkyook89 mm[Hg]Fay Pascal EQUIPMENT ANALYST Work Phone: [facility] NorthYcicxlpjcs91-50-9230 09:43-0500Heart rate67 /min Fay Pascal EQUIPMENT ANALYST Work Phone: [facility] NorthGyvtsywyjg95-65-7601 09:43-0500Respiratory rate18 /minFay Pascal EQUIPMENT ANALYST Work Phone: [facility] NorthBbzvljkyfv35-74-9866 09:43-0985AyG7% (BldA) [Mass fraction]97 %Fay Pascal EQUIPMENT ANALYST Work Phone: [facility] NorthQdijssbghi94-08-4166 09:43-0500Systolic blood nytznoev95 mm[Hg]Fay Pascal EQUIPMENT ANALYST Work Phone: [facility] NorthSoizubanxc22-22-4725 09:36-0400Body ijopzs681.6 cmJessica Sankovic PA-C Work Phone: [facility] Brarnx70-52-5960 09:36-0400Body temperature 97.81 [degF]Lorraine Sankovic PA-C Work Phone: [facility] Mbywek72-11-9193 09:36-0400Body azkbfy78.77 kgJessica Sankovic PA-C Work Phone: [place] Wqradl75-79-1457 09:36-0400Diastolic blood etejurio05 mm[Hg]Lorraine Sankovic PA-C Work Phone: [phone] Ptyhba59-17-0468 09:36-0400Heart rate65 /min Lorraine Sankovic PA-C Work Phone: [facility] Hnujdi01-35-6674 09:36-4537LfK1% (BldA) [Mass fraction]98 %Lorraine JARA-C Work Phone: [facility] Jbwgbu13-44-3240 09:36-0400Systolic blood winnakxc583 mm[Hg]Lorraine JARA-C Work Phone: [place] Xdgozo58-46-5080 10:30-0400Body gryktm726.64 cmDarenetta Santos Other [facility] Other 05-24-2022 10:30-0400Body mass index (BMI) [Ratio] 22.27 kg/k6SkiunPanda Santos Other [facility] Other 05-24-2022 10:30-0400Body ggnpdwwlwax06.4 [degF]Panda Santos Other [facility] Other 05-24-2022 10:30-0400Body vahkud95.6 kgDarenetta Santos Other [facility] Other 05-24-2022 10:30-0400Diastolic blood qhbwfuky65 mm[Hg] Panda Santos Other [facility] Other 05-24-2022 10:30-8950RdA0% (BldA) [Mass fraction]99 % Panda Santos Other [facility] Other 05-24-2022 10:30-0400Systolic blood mm[Hg] Panda Santos Other [facility] Other 03-01-2022 16:00-0500Body .64 cmDarenetta Hicks Other [employer] Other 03-01-2022 16:00-0500Body mass index (BMI) [Ratio] 22.92 kg/y6Anhfp Hykes Other [facility] Other 03-01-2022 16:00-0500Body gimrcl83.41 kgDavid Hykes Other [facility] Other 03-01-2022 16:00-0500Diastolic blood mbkjxdyz53 mm[Hg] Panda Hicks Other [facility] Other 03-01-2022 16:00-0500Systolic blood vysvllkq958 mm[Hg] Panda Hicks Other [facility] Other 01-27-2022 11:00-0500Body xyyula295.64 cmDavid Hykes Other [facility] Other 01-27-2022 11:00-0500Body mass index (BMI) [Ratio] 22.43 kg/j5Ssmod Hykes Other [facility] Other 01-27-2022 11:00-0500Body .05 kgDavid Hykes Other [facility] Other 10-07-2021 16:30-0400Body lqwazm291.64 cmLynetteelizabeth Croninarney Other [facility] Other 10-07-2021 16:30-0400Body mass index (BMI) [Ratio] 22.59 kg/f4VyrnyspsKelsey Pop Other [facility] Other 10-07-2021 16:30-0400Body zyzsrr91.5 kgKelsey Pop Other [facility] Other Encounters Encounter DateEncounter TypeCare ProviderFacilityStart: 03-03-2025 End: 50-47-4092acyqtmigffTLVCZTTEKEM [facility] Start: 01-12-2025 End: 27-20-9625Trolhtjpd Result EncounterLisa Chadtyrese EQUIPMENT ANALYST Work Phone: noms External Department UnsolicitedStart: 01-12-2025 End: 49-80-8498Bpbmebetz Result EncounterLisa Chadmariferholz EQUIPMENT ANALYST Work Phone: n[facility] External Department UnsolicitedStart: 01-12-2025 End: 10-88-0260Hzquujn encounter procedureLisa Chadmariferholz EQUIPMENT ANALYST Work Phone: noms CWM FMComment on above:Encounter for subsequent annual wellness visit (AWV) in Medicare patient (Primary Dx); Obstructive sleep apnea syndrome; Dyslipidemia ; Encounter for screening mammogram for malignant neoplasm of breast; Osteoporosis, postmenopausal ; Vitamin D deficiency; Prediabetes; Hypothyroidism, adult ; Heart murmur; Nonrheumatic aortic valve insufficiencyStart: 01-12-2025 End: 13-39-2628plkwjyilopWIWS CHADHHOLZNot AvailableStart: 12-08-2024 End: 40-89-5860EdukisJagp Chadhholz EQUIPMENT ANALYST Work Phone: noms CWM FMComment on above:Hypothyroidism, adult Start: 09-29-2024 End: 63-57-7793Rdqevd outpatient visit 15 minutesStstella KIMBROUGHM Work Phone: noms PODIATRYComment on above:Dermatophytosis of nail (Primary Dx); Dystrophic nail; Pain around toenail, left foot; Pain around toenail, right foot; Difficulty walkingStart: 09-29-2024 End: 35-23-0079knwrnbwhkpNPNTBN Sabra GUTIERRESAruna AvailableStart: 09-23-2024 End: 02-57-5881pqvcuxkbuyJXXDFUIUF [facility] Start: 09-10-2024 End: 35-23-1933Pqazfvhfq Result EncounterGeneric External Data ProviderNOMS External Department UnsolicitedStart: 09-10-2024 End: 49-94-4062Drmhntobz Result EncounterGeneric External Data ProviderNOMS External Department UnsolicitedStart: 09-10-2024 End: 64-74-3086eecbusialaJEGWAlex Garcia [facility] HospitalStart: 09-10-2024 End: 62-43-9533Tkhbunkjjh hospital visit by Donovan Marcelino NP Work Phone: [employer] [place] LABComment on above:Vaginal dischargeStart: 09-08-2024 End: 72-43-3992Lktcbj Sofi Pascal EQUIPMENT ANALYST Work Phone: noms CWM FMComment on above:Rectal bleeding (Primary Dx)Start: 08-27-2024 End: 67-55-6199CvsyriFfkp Aichholz NP Work Phone: noms CWM FMComment on above:Hypothyroidism, adult ([facility]/HCC)Start: 08-20-2024 End: 01-13-9413Ecjfyylwb Result EncounterGeneric External Data ProviderNOMS External Department UnsolicitedStart: 08-20-2024 End: 86-66-4460Hgpdhtytr Result EncounterGeneric External Data ProviderNOMS External Department UnsolicitedStart: 08-20-2024 End: 64-60-6702ihrfzwijnsLDMJJQU BARTHMerchhaya Bonillafin HospitalStart: 08-20-2024 End: 01-20-0166Aeikdrbpqu hospital visit by Donovan Marcelino NP Work Phone: [facility] LABComment on above:Vaginal dischargeStart: 06-09-2024 End: 47-92-3669UugkmbZwvk Aichholz EQUIPMENT ANALYST Work Phone: noms CWM FMComment on above:Hypothyroidism, adult (CMS/HCC) (Primary Dx)Start: 05-11-2024 End: 46-86-9387Bptbhsgiv Result EncounterLisa Aichholz EQUIPMENT ANALYST Work Phone: noms External Department UnsolicitedStart: 05-11-2024 End: 60-58-5276Byncnjdwh Result EncounterLisa Aichholz EQUIPMENT ANALYST Work Phone: n[facility] External Department UnsolicitedStart: 04-23-2024 End: 45-28-6864RpfauiRwpw Aichholz EQUIPMENT ANALYST Work Phone: noms CWM FMComment on above:Hypothyroidism, adult (CMS/HCC) (Primary Dx)Start: 04-21-2024 End: 38-68-0853Wujgykmhp Result EncounterLisa Aichholz EQUIPMENT ANALYST Work Phone: noms External Department UnsolicitedStart: 04-21-2024 End: 93-62-1181Brbaxojkj Result EncounterLisa Aichholz EQUIPMENT ANALYST Work Phone: noms External Department UnsolicitedStart: 03-19-2024 End: 53-34-8388Zjtzczd encounter procedureMD Bright Mccall II Work Phone: [facility] Work Phone: Start: 03-19-2024 End: 40-10-2221osmnzhxhwqRFBSalem City Hospital Work Phone: Start: 02-19-2024 End: 33-42-1388Pvjsri flowsheetLisa Aichholz EQUIPMENT ANALYST Work Phone: noms CWM FMStart: 02-19-2024 End: 00-41-5405Wjmjcq flowsheetLisa Aichholz EQUIPMENT ANALYST Work Phone: noms CWM FMStart: 02-19-2024 End: 86-34-3549Fjkpdo outpatient visit 25 minutesLisa Aichholz EQUIPMENT ANALYST Work Phone: noms CWM FMComment on above:Hypothyroidism, adult ([facility]) (Primary Dx); Heart murmur; Obstructive sleep apnea syndromeStart: 02-19-2024 End: 39-64-7543MaxtsjIvax Aichholz EQUIPMENT ANALYST Work Phone: noms CWM FMComment on above:Hypothyroidism, adult (CMS/HCC) (Primary Dx)Start: 01-15-2024 End: 48-88-7477Muksalowe Result EncounterLisa Aichholz EQUIPMENT ANALYST Work Phone: noms External Department UnsolicitedStart: 01-15-2024 End: 20-13-2029Huepkpeow Result EncounterLisa Aichholz EQUIPMENT ANALYST Work Phone: noms External Department UnsolicitedStart: 01-07-2024 End: 89-80-5950Zfbrwr flowsheetLisa Aichholz EQUIPMENT ANALYST Work Phone: noms CWM FMStart: 01-07-2024 End: 19-11-6462Ujqkdv flowsheetLisa Aichholz EQUIPMENT ANALYST Work Phone: noms CWM FMStart: 01-07-2024 End: 94-35-6552Sfdraqw encounter procedureLisa Aichholz EQUIPMENT ANALYST Work Phone: noms HealthcareComment on above:Encounter for subsequent annual wellness visit (AWV) in Medicare patient (Primary Dx); Hypothyroidism, adult ([facility]); Encounter for screening mammogram for malignant neoplasm of breast; Vitamin D deficiency; Osteoporosis, 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[facility]); Heart murmur; Obstructive sleep apnea syndromeStart: 12-03-2023 End: 10-43-3727Rrlaachw ReferredAPRAnson Wade Work Phone: [facility] Work Phone: Start: 12-03-2023 End: 80-31-8891pvpsrbbwufZmsm [facility] Work Phone: Start: 12-03-2023 End: 18-26-0518Ftcjwvy encounter procedureHarris [facility] Work Phone: Start: 07-31-2023 End: 59-34-2412adyzvgokctMidonzk R NILLFacility: BellevueStart: 07-18-2023 End: 33-23-3502fsxgfkrhqkQlii NadererFacility:[facility] Start: 07-10-2023 End: 00-77-9806jinkppztcfSmzewvy R NILLFacility: BellevueStart: 07-10-2023 End: 12-84-2539Zsdwwso encounter procedureMichael R NILL General Surgery Nill/Said Estella Start: 56-77-7312giifnbrmsoXkpihla NILLFacility: BellevueStart: 19-92-9458Sntxjr flowsheetFay Pascal EQUIPMENT ANALYST Work Phone: noms CWM FMStart: 58-03-8199Bvglkt flowsheetFay Pascal EQUIPMENT ANALYST Work Phone: noms CWM FMStart: 75-62-1067Vntixchzc Result Encounter Fay Pascal NP Work Phone: noms External Department UnsolicitedStart: 06-27-2023 End: 08-00-7287Zcqpxj outpatient visit 25 minutesLisa Pascal EQUIPMENT ANALYST Work Phone: noms CWM FMComment on above:Rectal bleeding (Primary Dx); Hypothyroidism, adult (CMS/HCC); Vitamin D deficiency; BMI 21.0-21.9, adult; Heart murmurStart: 05-10-2023 End: 36-72-3491Stbiftbce Result EncounterPhoenix Garner MD Work Phone: noms External Department UnsolicitedStart: 05-10-2023 End: 81-50-1920Mdxwtacho Result EncounterPhoenix Garner MD Work Phone: noms External Department UnsolicitedStart: 07-30-2022 End: 65-00-8251ayadukzppcVALFDRZ SANKOVICFacility:[facility] Start: 07-30-2022 End: 85-82-4034Hcwxlpk encounter procedureLorraine Mckinley PA-C Work Phone: colorectal SurgeryComment on above:Rectal discharge (Primary Dx)Start: 05-09-2022 End: 93-92-9463cplmvpsqufMZ [place] A NADERERFacility:G2Dvzzz: 10-18-2021 End: 70-83-0643pllohhxuyhCS MARC A NADERERFacility:F7Zinmc: 10-10-2021 End: 39-73-1206libjjdlkjfWatzf Morris Other [employer] Other Start: 38-66-1233Yyfgev outpatient visit 40 minutes [facility]Start: 07-18-2021 End: 06-06-7460gbxciwguydFvgwa Fabiola Other [facility] Other Start: 35-39-3789Slyaen outpatient visit 15 minutes Panda Lopez GastroenterologyStart: 06-20-2021 End: 71-80-6359zbhiguatkoXmzmw Fabiola Other [facility] Other Start: 03-30-7155Cqoimwfca encounterDavid John GastroenterologyStart: 06-15-2021 End: 03-22-5423zdfgouxoqcZtcik Hykes Other [employer] Other Start: 46-23-4194Uukxpc outpatient visit 25 minutes Panda Lopez GastroenterologyStart: 05-31-2021 End: 08-01-5439fldqbbsphoNM [place] A NADERERFacility:N4Favde: 05-02-2021 End: 38-56-7384xxkeydjdqxShlbu Hykes Other NoMac[employer] Buzzoole Other Start: 25-14-4791Jyafvwahl encounterDavid HykesFPG GastroenterologyStart: 05-01-2021 End: 49-91-1265dkxaodcnimZnrbk Hykes Other [facility] [place] Other Start: 93-66-6355Cdsmpmnpq encounterDavid HykesFPG GastroenterologyStart: 04-10-2021 End: 00-12-3357zoqcrkbrvfCaxjo Hykes Other [facility] [place] Other Start: 05-97-2645Lvjtdyime encounterDavid HykesFPG GastroenterologyStart: 00-31-0651Raedhjnlb encounterDavid HykesFPG GastroenterologyStart: 01-49-6290Dxliiy outpatient visit 15 minutesJennifer arneyFPG [facility] Procedures DateProcedureProcedure DetailPerforming ClinicianStart: 44-25-2649GRC CBC WITH AUTO DIFFLisa Naida EQUIPMENT ANALYST Work Phone: Start: 53-24-2089EYE HEMOGLOBIN O3CBkxm Naida EQUIPMENT ANALYST Work Phone: Start: 18-02-2758Tjxmw fela species direct probe tq Justeen Chantel SORTING LIVESTOCK WORKER - CNM Work Phone: Start: 29-66-1157ROPF VAGINITIS DNA PROBEGeneric External Data ProviderStart: 23-56-3058AWTV VAGINITIS DNA PROBEGeneric External Data ProviderStart: 45-50-6234ME TOMOSYNTHESIS SCREENING BILisa Naida EQUIPMENT ANALYST Work Phone: Start: 18-12-4324TxdbmkvkfyuRboc Naida EQUIPMENT ANALYST Work Phone: Start: 36-22-9610PGG THYROID STIM HORMONELisa Aichholz EQUIPMENT ANALYST Work Phone: Start: 35-38-1142Gakbr radiography of pelvisMD Bright Mccall II Work Phone: Start: 61-33-8333U-ray of right knee, four viewsMD Bright Mccall II Work Phone: Start: 27-29-8838JK ECHO DOPPLER COMPLETELisa Aichholz EQUIPMENT ANALYST Work Phone: Start: 72-97-7330RnbtkfpwnckFmtf Aichholz EQUIPMENT ANALYST Work Phone: Start: 39-12-1816URK CBC WITH AUTO DIFFLisa Aichholz EQUIPMENT ANALYST Work Phone: Start: 96-18-0544VN TOMOSYNTHESIS SCREENING Oscar Garner MD Work Phone: Start: 45-86-8602MuwmxcydoytPpcz Aichholz EQUIPMENT ANALYST Work Phone: Start: 60-54-9713MbcvjribbpdWugb Aichholz EQUIPMENT ANALYST Work Phone: Start: 32-40-5161OsvhedlvdcbHygnbxm NILL Start: 28-70-6576RqaxtlpbrnperzqunnjzbypvydGvfzhhh NILL Start: 91-78-2760DlchahhcbicEdtgmpc NILL Arthroscopy of kneeMichael NILL Arthroscopy of shoulderMichael NILL Bladder excisionMichael NILL Comment on above:right upper backColonoscopyMichael NILL LaparoscopyMichael NILL Ligation of fallopian tubeMichael NILL Plan of Treatment DateCare ActivityDetailAuthorStart: 67-19-1533Umzdkzswh for malignant neoplasm of colonNOMS HealthcareStart: 06-77-9781Jdgdiolrx for malignant neoplasm of colonNOMS HealthcareStart: 33-64-4132Hlvwvnqkfds Syncytial Virus (RSV) or age 60 yrs+ (1 - 1-dose 75+ series)Respiratory Syncytial Virus (RSV) or age 60 yrs+ (1 - 1-dose 75+ series)[facility] CenterStart: 01-17-2026 End: 24-86-1204Clnboqy encounter kejxfpjsf46/31/2026 10:30 AM EDT Office Visit [facility] [address] [place] [address] Fay Pascal, DELMY [address] [place] [address] [facility] FMStart: 08-26-2026Medicare Annual Wellness (AWV) Medicare Annual Wellness (AWV)[facility] HealthcareStart: 36-03-8331Fnycafjoyu Screen Depression ScreenBon [facility] HospitalStart: 05-11-2025 End: 59-03-8859HVO Skeletal system Views for bone densityDEXA bone density Imaging Routine Osteoporosis, postmenopausal Expected: 05/11/2025 (Approximate), Expires: 01/12/2026[facility] NorthComment on above:Expected: 05/11/2025 (Approximate), Expires: 01/12/2026Start: 05-11-2025 End: 39-39-4639FZ Breast - bilateral ScreeningBilateral screening mammogram Imaging Routine Encounter for screening mammogram for malignant neoplasm of breast Expected: 05/11/2025 (Approximate), Expires: 03/14/2026[facility] Work Phone: Comment on above:Expected: 05/11/2025 (Approximate), Expires: 03/14/2026Start: 10-53-2624Reyyukysq for malignant neoplasm of breast MammogramNOOK HealthcareStart: 04-13-2025 End: 64-83-5450Yrqefgj encounter bvvekcxom07/25/2025 9:40 AM EST Office Visit [facility] [address] [place] [address] Fay Pascal NP [address] [place] [address] [facility] FMStart: 01-12-2025 End: 097647-yhhoqrvpqcbzvs D3 [Mass/volume] in Serum or PlasmaVitamin D 25 hydroxy Lab Routine Vitamin D deficiency Expected: 01/12/2025 (Approximate), Expires: 01/12/2026NOOK HealthcareComment on above:Expected: 01/12/2025 (Approximate), Expires: 01/12/2026Start: 01-12-2025 End: 12-66-0717DSD W Auto Differential panel - BloodCBC and differential Lab Routine Obstructive sleep apnea syndrome Hypothyroidism, adult Expected: (Approximate), Expires: 01/12/2026NOOK HealthcareComment on above: Expected: 01/12/2025 (Approximate), Expires: 01/12/2026Start: 01-12-2025 End: 46-25-8048Kbmoextkholuc metabolic 2000 panel - Serum or PlasmaComprehensive metabolic panel Lab Routine Dyslipidemia Osteoporosis, postmenopausal Vitamin D deficiency Prediabetes Hypothyroidism, adult Expected: 01/12/2025 (Approximate), Expires: 01/12/2026[facility] HealthcareComment on above:Expected: 01/12/2025 (Approximate), Expires: 01/12/2026Start: 01-12-2025 End: 91-69-0172Dykduprbrcvnkx 2D completeEchocardiogram 2D complete Echocardiography Routine Heart murmur Nonrheumatic aortic valve insufficiency Expected: 01/12/2025 (Approximate), Expires: 01/12/2027NOOK HealthcareComment on above:Expected: 01/12/2025 (Approximate), Expires: 01/12/2027Start: 01-12-2025 End: 80-69-0726Vkiepnpcry A1c/Hemoglobin.total in BloodHemoglobin A1c Lab Routine Prediabetes Expected: 01/12/2025 (Approximate), Expires: 01/12/2026NOOK HealthcareComment on above:Expected: 01/12/2025 (Approximate), Expires: 01/12/2026Start: 01-12-2025 End: 87-37-4032Gaelk 1996 panel - Serum or PlasmaLipid panel Lab Routine Dyslipidemia Expected: 01/12/2025 (Approximate), Expires: 01/12/2026NOMS HealthcareComment on above:Expected: 01/12/2025 (Approximate), Expires: 01/12/2026Start: 01-12-2025 End: 45-12-3949Rpckejxgpsi [Units/volume] in Serum or PlasmaTSH Lab Routine Hypothyroidism, adult Expected: 01/12/2025 (Approximate), Expires: 01/12/2026 NOMS HealthcareComment on above:Expected: 01/12/2025 (Approximate), Expires: 01/12/2026Start: 01-12-2025 End: 60-73-5367Xougkptkf (T4) free [Mass/volume] in Serum or PlasmaT4, free Lab Routine Hypothyroidism, adult Expected: 01/12/2025 (Approximate), Expires: 01/12/2026NOOK HealthcareComment on above:Expected: 01/12/2025 (Approximate), Expires: 01/12/2026Start: 01-12-2025 End: 00-13-5212Mqfubbxmfyxticmj (T3) Free [Mass/volume] in Serum or PlasmaT3, free Lab Routine Hypothyroidism, adult Expected: 01/12/2025 (Approximate), Expires: 01/12/2026NOOK HealthcareComment on above:Expected: 01/12/2025 (Approximate), Expires: 01/12/2026Start: 01-12-2025 End: 06-08-7789Cajelgi encounter /26/2025 10:00 AM EDT Office Visit [facility] [address] [place] [address] Fay Pascal NP [address] [place] [address] N[facility]S [facility] FMStart: 08-20-2025Medicare Annual Wellness (AWV) Medicare Annual Wellness (AWV)NOMS HealthcareStart: 44-05-7299Ztgxjohhx vaccinationFlu vaccine (Season Ended)[facility] CenterStart: 09-29-2024 End: 05-22-0210Lpyoffk encounter groewidvx50/13/2025 9:30 AM EDT Procedure Visit [facility] [address] [place] [address] Melyssa Dickerson DPM [address] [place] [address] NOMS PODIATRYStart: 72-45-0938Iumuhy Wellness Visit (Medicare)Annual Wellness Visit (Medicare)[facility] CenterStart: 07-22-2024 End: 93-03-1658Cdzgxkpojrk [Units/volume] in Serum or PlasmaTSH Lab Routine Hypothyroidism, adult ([facility]) Expected: 07/22/2024 (Approximate), Expires: 04/23/2025[facility] Work Phone: Comment on above:Expected: 07/22/2024 (Approximate), Expires: 04/23/2025Start: 07-22-2024 End: 16-55-9017Rwisdzyhg (T4) free [Mass/volume] in Serum or PlasmaT4, free Lab Routine Hypothyroidism, adult (CMS/[facility]) Expected: 07/22/2024 (Approximate), Expires: 04/23/2025[facility] HealthcareComment on above:Expected: 07/22/2024 (Approximate), Expires: 04/23/2025Start: 06-22-2024 End: 92-68-4829Jgsoebp encounter wihjlgjhk13/03/2025 9:00 AM EST Office Visit [facility] [address] [place] [address] Fay Pascal, DELMY [address] [place] [address] [facility] FMStart: 77-53-9842Xgorvuept for malignant neoplasm of breastVA HOSPITAL HealthcareStart: 05-08-2024 End: 02-46-5711AF Breast - bilateral ScreeningBilateral screening mammogram Imaging Routine Encounter for screening mammogram for malignant neoplasm of breast Expected: 05/08/2024 (Approximate), Expires: 03/08/2025[facility] Comment on above:Expected: 05/08/2024 (Approximate), Expires: 03/08/2025Start: 54-71-3692Oydtk radiography of pelvisXR pelvis 1-2VSelect Medical OhioHealth Rehabilitation Hospitaltart: 09-73-5078Z-ray of right knee, four viewsXR knee RT 4V*[facility] Hospitaltart: 48-21-9612XE Knee - right 4 ViewsSelect Medical OhioHealth Rehabilitation Hospitaltart: 30-33-4201PW Pelvis 1 or 2 ViewsSelect Medical OhioHealth Rehabilitation Hospitaltart: 02-19-2024 End: 77-72-4426Brwntmv encounter procedureNOMS [facility] FMComment on above:Arrived Start: 32-29-8897WFTHA-19 Vaccine ( season)COVID-19 Vaccine ()[facility] CenterStart: 01-07-2024 End: 98-61-2344Pxhgjmcrmipasg 2D completeEchocardiogram 2D complete Echocardiography Routine Heart murmur Expected: 01/07/2024 (Approximate), Expires: 01/06/2026[facility] HealthcareComment on above:Expected: 01/07/2024 (Approximate), Expires: 01/06/2026Start: 01-07-2024 End: 39-88-5956Snfoyszfyqw [Units/volume] in Serum or PlasmaTSH Lab Routine Hypothyroidism, adult (CMS/HCC) Expected: 01/07/2024 (Approximate), Expires: 01/06/2025[facility] Work Phone: Comment on above:Expected: 01/07/2024 (Approximate), Expires: 01/06/2025Start: 01-07-2024 End: 53-49-6439Hffqqpuwn (T4) free [Mass/volume] in Serum or PlasmaT4, free Lab Routine Hypothyroidism, adult (CMS/HCC) Expected: 01/07/2024 (Approximate), Expires: 01/06/2025NOOK HealthcareComment on above:Expected: 01/07/2024 (Approximate), Expires: 01/06/2025Start: 01-07-2024 End: 22-36-3352Lagtpet encounter ohloktxaj92/20/2024 10:30 AM EDT Office Visit [facility] [address] [place] [address] Fay Pascal, EQUIPMENT ANALYST [address] [place] [address] Hypothyroidism, adult (CMS/HCC) (Primary Dx); Encounter for screening mammogram for malignant neoplasm of breastNOHILLCRE[facility] FMComment on above: Hypothyroidism, adult (CMS/HCC) (Primary Dx); Encounter for screening mammogram for malignant neoplasm of breastStart: 08-17-2024Medicare Annual Wellness (AWV)Medicare Annual Wellness (AWV)[facility] NorthStart: 65-33-6079Oycumxxp identified in Urine by [facility] Ohiotart: 07-31-2023 End: 80-27-4646Eiuggpd encounter /13/2024 9:20 AM EDT Office Visit [facility] [address] [place] [address] Fay Pascal, EQUIPMENT ANALYST [address] [place] [address] [facility] FMStart: 06-27-2023 End: 781424-axbramxmzfqqhp D3 [Mass/volume] in Serum or PlasmaVitamin D 25 hydroxy Lab Routine Vitamin D deficiency Expected: 06/27/2023 (Approximate), Expires: 06/27/2024[facility] Work Phone: Comment on above:Expected: 06/27/2023 (Approximate), Expires: 06/27/2024Start: 06-27-2023 End: 14-78-0579HWM W Auto Differential panel - BloodCBC and differential Lab Routine Rectal bleeding Expected: 06/27/2023 (Approximate), Expires: 06/27/2024 [facility]S HealthcareComment on above:Expected: 06/27/2023 (Approximate), Expires: 06/27/2024Start: 06-27-2023 End: 53-85-5665Dxhmeqstbiqac metabolic 2000 panel - Serum or PlasmaComprehensive metabolic panel Lab Routine Hypothyroidism, adult (CMS/HCC) Vitamin D deficiency Rectal bleeding Expected: 06/27/2023 (Approximate), Expires: 06/27/2024NOMS HealthcareComment on above:Expected: 06/27/2023 (Approximate), Expires: 06/27/2024Start: 06-27-2023 End: 34-67-4833Qsrucqnoomd sedimentation rateSedimentation rate, automated Lab Routine Rectal bleeding Expected: 06/27/2023 (Approximate), Expires: 06/27/2024 N[facility]S HealthcareComment on above:Expected: 06/27/2023 (Approximate), Expires: 06/27/2024Start: 06-27-2023 End: 09-89-3498Jutaootn [Mass/volume] in Serum or PlasmaFerritin Lab Routine Rectal bleeding Expected: 06/27/2023 (Approximate), Expires: 06/27/2024NOMS HealthcareComment on above:Expected: 06/27/2023 (Approximate), Expires: 06/27/2024Start: 06-27-2023 End: 36-58-7046Sbfb and Iron binding capacity panel - Serum or PlasmaIron level Lab Routine Rectal bleeding Expected: 06/27/2023 (Approximate), Expires: 06/27/2024NOM[facility] HealthcareComment on above:Expected: 06/27/2023 (Approximate), Expires: 06/27/2024Start: 06-27-2023 End: 43-36-4503Rpwtzwgcmfo [Units/volume] in Serum or PlasmaTSH Lab Routine Hypothyroidism, adult (CMS/HCC) Expected: 06/27/2023 (Approximate), Expires: 06/27/2024NOMS HealthcareComment on above:Expected: 06/27/2023 (Approximate), Expires: 06/27/2024Start: 06-27-2023 End: 93-36-4131Ycdxszrop (T4) free [Mass/volume] in Serum or PlasmaT4, free Lab Routine Hypothyroidism, adult (CMS/HCC) Expected: 06/27/2023 (Approximate), Expires: 06/27/2024[facility] HealthcareComment on above:Expected: 06/27/2023 (Approximate), Expires: 06/27/2024Start: 06-27-2023 End: 52-52-8115Bntwlaweqohgqgzb (T3) Free [Mass/volume] in Serum or PlasmaT3, free Lab Routine Hypothyroidism, adult (CMS/HCC) Expected: 06/27/2023 (Approximate), Expires: 06/27/2024[facility] HealthcareComment on above:Expected: 06/27/2023 (Approximate), Expires: 06/27/2024Start: 06-27-2023 End: 83-42-8636Sygmegk encounter cciogjhyb24/08/2024 9:40 AM EST Office Visit [facility] [address] [place] [address] Fay Pascal NP [address] [place] [address] Hypothyroidism, adult (CMS/HCC) (Primary Dx); Vitamin D deficiencyNOHILLCREST HOSPITAL [facility] [place] FMComment on above:Hypothyroidism, adult ([facility]/HCC) (Primary Dx); Vitamin D deficiencyStart: 87-24-1944Pgnguzkfo vaccinationInfluenza Vaccine (#1) [facility] HealthcareStart: 36-30-0293VIBQANT DIRECTIVE DISCUSSIONADVANCE DIRECTIVE DISCUSSIONAultman Hospitaltart: 37-60-3614CBGBYBJFJP ASSESSMENTDEPRESSION ASSESSMENTAultman Hospitaltart: 12-13-8864Wiapguytm vaccinationINFLUENZA (#1) [facility]: 51-24-6073TLPQ DENSITYBONE DENSITYAultman Hospitaltart: 91-08-5075BSWVGXBEYILB: 65+ (1 - PCV)PNEUMOCOCCAL: 65+ (1 - PCV)[facility] Start: 11-01-2018Medicare Annual Wellness (AWV)Medicare Annual Wellness (AWV) [facility]Start: 83-84-1696Gjlsrgcqs for osteoporosisDEXA (modify frequency per FRAX score)[facility] CenterStart: 38-99-1717Hxzneljy vaccine (1 of 2)Shingles vaccine (1 of 2)[facility] Centerart: 43-70-5514ZDQWJDSZ VACCINE (1 of 2)SHINGRIX VACCINE (1 of 2)[facility] Hospitaltart: 2000 COLOGUARD (FIT-DNA)COLOGUARD (FIT-DNA)[facility]: 2000 ColonoscopyCOLONOSCOPYAultman Hospitaltart: 02-94-9626OTLOXXIIQX CANCER SCREENINGCOLORECTAL CANCER SCREENINGAultman Hospitaltart: 89-37-8467ZK COLONOGRAPHYCT COLONOGRAPHYAultman Hospitaltart: 64-41-0469LEXZIHJY SCREEN DIABETES SCREENAultman Hospitaltart: 78-31-3078QTGUK OCCULT BLOODFECAL OCCULT BLOODAultman Hospitaltart: 86-64-0374STOQS SCREENLIPID SCREENKindred Hospital [facility] Start: 39-58-3908Zvsntordc for malignant neoplasm of colonBon [facility] Centerart: 33-44-9928FNCRTQDTKCCBBCVFJXFGGHKOUCXhuiatdyb ClinicStart: 16-39-7243Ymdxj panelLipidsSpotsylvania Regional Medical CenterStart: 45-11-7759Sflxcpsqjim MAMMOGRAMAultman Hospitaltart: 66-62-2164SFcV/Tdap/Td vaccine (1 - Tdap) DTaP/Tdap/Td vaccine (1 - Tdap)[facility] CenterStart: 00-82-6645Memzv microalbumin profileDTAP,TDAP,TD (1 - Tdap)[facility]: 1973 HEPATITIS C SCREENINGHEPATITIS C SCREENINGAultman Hospitaltart: 1973 Hepatitis C screeningHepatitis C screenBon [facility] HospitalStart: 1967 Depression ScreenDepression ScreenSentara RMH Medical Centerart: 01-15-1956 COVID-19 VACCINE (#1)COVID-19 VACCINE (#1)[facility]: 1955 Screening for malignant neoplasm of colonVA [facility]OSPITAL Healthcare End: 91-12-0454Ujmjtqhzp DNA ProbeBon [facility] HospitalComment on above:1 Occurrences starting 08/20/2024 until 08/20/2024 Immunizations Immunization DateImmunizationNotesCare PlgidyfjGhgljpet14-19-5301Bjoktgrkpldk Conjugate PCV 20Lisa Aichholz EQUIPMENT ANALYST Work Phone: [facility] NorthTugahnxrax47-64-7526Tymnkfo -40 mgKelsey [place]annock Other Eferio Buzzoole Other 05-483926-37-3629Ayapguk -40 mgLynetteLoop Surveyarney Other Eferio [place] Other 05-458546-08-6221Hgn-NkiPukycoaa [place] Other Eferio [place] Other 02552281-78-7178owkyygkykvvc conjugate vaccine, 13 valent Fay Aichholz EQUIPMENT ANALYST Work Phone: [facility] NorthFtkvrdlmcq29-56-0824zgrivakbipfl polysaccharide vaccine, 23 valentLisa Aichholz EQUIPMENT ANALYST Work Phone: [facility] NorthNEGATED: Highlighted row has not occurred!68-97-8158kbirwkbof virus vaccine, unspecified formulationMichael NILL [facility] [place] Payers DatePayer CategoryPayerPolicy [id number] [id number] Health Insurance [id number] [id number] Health [id number] 2.0.2.96403[id number] 2.16840.1.629750.3.579.2.593 [id number] 2.0.1.286961.3.579.[id number] 2.840.1.324723.3.579.[id number] 2..1.357099.3.57[id number] 2.0.1.573025.3.579.2.18[id number] 2..1.060310.3.579.[id number] 2.0.1.372180.3.57[id number] 2.840.1.291733.3.579.2.179396-99-2480Hrkiakn4528722 2.0.1.511823.3.579.2.214620-76-8761Gwdlneu0969364 2.840.1.844071.3.579.2.0505Gaobkgt30546520 2.0.1.754074.3.579.2.531 [id number] 2.0.1.10876[id number] 2.0.1.885911.3.579.2.531 Social History DateTypeDetailFacilityStart: 06-26-2023 End: 05-05-2770Qcb Assigned At BirthVA [facility]ITAL HealthcareStart: 07-30-2022 End: 31-64-2906Gsrvzge smoking status NHISNever smoked tobaccoKindred Hospital Lima Start: 07-30-2022 End: 98-74-9098Tnxwilo use and exposureSmokeless tobacco non-userAultman Hospitaltart: 07-30-2022 End: 21-95-2592Mntgwzc intakeEx-drinker (finding)[facility]tart: 33-22-5232Akp Assigned At BirthNot on fileAultman Hospitaltart: 06-26-2023 End: 12-57-0146Pxksnsr of Social functionNOOK HealthcareWithin the last year, have you been afraid of your partner or ex-partner?NoNOMS HealthcareStart: 32-03-9414Twzwqff Synagogue ServicesNot on fileVA HOSPITAL HealthcareAre you now , , , , never or living with a partner? MarriedNOOK HealthcareHow often to you have a drink containing alcohol?NeverNOOK HealthcareDo you feel stress - tense, restless, nervous, or anxious, or unable to sleep at night because yourmind is troubled all the time - these days [OSQ]To some extentNOOK Healthcare(I/We) worried whether (my/our) food would run out before (I/we) got money to buy more.Never trueVA [facility] HealthcareStart: 06-25-2023 Alcohol Commentcoffee 1-2 cups per dayCox NorthStart: 19-59-6538Cmvpedn smoking status NHISEx-smoker (finding)[facility] Hospitaltart: 01-54-0920Eez Assigned At BirthFeThe Surgical Hospital at Southwoodstart: 08-20-2024 End: 99-84-8645Ctdzniwta beverage intakeCurrent drinker of alcohol (finding)Bon CrimeReports [facility] CenterStart: 72-29-4468Ewscnfh CommentoccBon [facility] SurpriseLoopUp [facility] Start: 61-67-7300OiiExwxuv (finding)Bon [facility] SurpriseLoopUp [facility] CenterTobacco smoking status NHISTobacco smoking consumption unknownNOPhelps Health Functional Status XojjFwkqudfdhnFnkadxNwjbsxhs39-71-4316Taguffu Health Questionnaire 2 item (PHQ- 2) [Reported][facility]ox NorthLrvchxxqss49-86-0672Nhvegpbeh depression scale (GDS).short version [facility] HospitalStjmccwyiv78-33-7260Dxr difficult have these problems made it for you to do your work, take care of things at home, or get along with other people?Not difficult at all 01/07/2024 10:38 AM Taniya Finnegan MA Not difficult at allCox NorthQakrkghsgj66-54-0390Iebdufxert StatusN/AGeneral Surgery Iucedeqq29-90-8401Ukovdiu Health Questionnaire 2 item (PHQ-2) [Reported][facility]ox NorthLtjieiyvnq23-07-3659Higuz score [AUDIT-C]0 06/26/2023 5:35 PM EST Mychart, GenericCox NorthPygbeoykwe17-93-8240Dmm often do you have a drink containing alcohol?Never 06/26/2023 5:35 PM EST Mychart, Generic NeverCox North 90-35-3951Irweuouyjx statusPatient does not drink 06/26/2023 5:35 PM EST Mychart, Generic Patient does not drinkCox NorthGfjqlbggit40-98-5563Jrr often do you have 6 or more drinks on 1 occasion?Never 06/26/2023 5:35 PM EST Mychart, Generic [facility] Clinical Notes 02-23-2021 to 03-03-2025 Note Date & OaboHjkeQpigiecm04-73-8063 NoteSubjective Patient ID: Alesha Bonilla is a 69 y.o. female who presents for New Patient (Patient is here today to establish care with cardiology. Patient had a recent Echo which showed mitral regurgitations. Patient complains of occasional SOB/LYNCH, racing/palpitations. Patient denies chest pain, leg swelling, fatigue.), Heart Murmur, Valve Disorder, and Sleep Apnea (Patient tested positive for sleep apnea, patient does not wish to use a cpap machine. She wants to talk about sleep apnea and how it effects the heart). I feel good Able to half hour walking with powered hand mower. Doesn't exercise. Can climb stairs but doesn't Walked around the fair without limitations. No chest pain or shortness of breath Breathing is different the last year, I don't get winded it is just different, nothing I am concerned about 01/26/25 echo after murmur heard on annual wellness exam: EF 65% and mild to modearte MR by echo with modearate ARLVESD 3.01 (normal 2.2-4) Heart Murmur Pertinent negative symptoms include no chest pain. Review of Systems Respiratory: Negative for chest tightness, shortness of breath and wheezing. Cardiovascular: Negative for chest pain and leg swelling. Gastrointestinal: Negative for blood in stool. Genitourinary: Negative for hematuria. Neurological: Negative for dizziness, seizures, syncope and light-headedness. Objective Visit Vitals BP 94/62 (BP Location: Left arm, Patient Position: Sitting) Pulse 72 Physical Exam Constitutional: Appearance: Normal appearance. She is normal weight. HENT: Head: Normocephalic and atraumatic. Cardiovascular: Rate and Rhythm: Normal rate and regular rhythm. Chest Wall: PMI is not displaced. No thrill. Pulses: Carotid pulses are 2+ on the right side and 2+ on the left side. Radial pulses are 2+ on the right side and 2+ on the left side. Dorsalis pedis pulses are 2+ on the right side and 2+ on the left side. Posterior tibial pulses are 2+ on the right side and 2+ on the left side. Heart sounds: Murmur heard. Systolic murmur is present with a grade of 3/6. Decrescendo diastolic murmur is present with a grade of 2/4. Comments: Negative Durozier's sign R Femoral artery Pulmonary: Effort: Pulmonary effort is normal. Breath sounds: Normal breath sounds. Musculoskeletal: Right lower leg: No edema. Left lower leg: No edema. Skin: General: Skin is warm and dry. Neurological: General: No focal deficit present. Mental Status: She is alert and oriented to person, place, and time. Mental status is at baseline. Psychiatric: Mood and Affect: Mood normal. Behavior: Behavior normal. Thought Content: Thought content normal. Judgment: Judgment normal. EKG today: normal Assessment/Plan Mrs. Bonilla has mild to moderate MR and moderate aortic insufficiency. Fortunately, her EF is normal and her LV end systolic volume is normal thus I do not think that valve surgery is indicated at this time. However, I am concerned about why she has two valves failing which may indicate a systemic problem. As such, I recommend she have a AGA to assess the mechanism of valve dysfunction and that we check a sed rate, CRP, RAFAL and rheumatoid factor Diagnosis Plan 1. Nonrheumatic mitral valve regurgitation 2. Palpitations ECG 12 lead unit performed 3. Nonrheumatic aortic valve insufficiency Orders Placed This Encounter Procedures ECG 12 lead unit performed This back office order was created through the Back Office Visit Navigator section. Release to Patient: Immediately Follow up in about 4 weeks (around 03/31/2025) for Recheck.[facility]08-26-2025 History of Present illness Narrative* Fay Pascal NP - 01/12/2025 11:03 AM EDTAssociated Problem(s): Nonrheumatic aortic valve insufficiency ECHO * Fay Pascal NP - 01/12/2025 10:59 AM EDTAssociated Problem(s): Heart murmur Will order updated ECHO * TANIYA RESTREPO - 01/12/2025 10:00 AM EDT Pt states [...] that manages your RIVERA: documented in this encounterNOMS [id number] Instructions* Patient Instructions* Fay Pascal NP - 01/12/2025 10:00 AM EDT Get labs fasting Mammogram and bone density in April 2025 Will order ultrasound of heart, I will fax order to [facility] they should call you documented in this [facility]05-13-2025 History of Present illness Narrative* Melyssa Dickerson, ISAI - 09/29/2024 9:30 AM EDT Images from the original note were not included. Subjective Patient ID: Alesha Bonilla is a 69 y.o. female who presents for Nail care (Alesha Bonilla 69yo New patient presents for nail care. Patient was last seen 02/2022 for nail care. Patient relates she has used fungi foam and listerine and vinegar in the past with little results. Patient has no interest inoral treatment, but would like options at this [...] distal onycholysis, subungual and periungual keratotic and mycoticdebris; without drainage. Digits 2, 3 left foot: [...] and MTP joint range of motion without pain. Radiology: Assessment/Plan Symptomatic TDO deformity digits 2, [...] of any cryptotic margins, all periungual debris; providingeffective symptom and pressure relief; reducing shoe and [...] understanding. Melyssa Dickerson DPM documented in this [facility]05-13-2025 Instructions* Patient Instructions* Melyssa Dickerson DPM - 09/29/2024 9:30 AM EDT Topical care measures as noted documented in this [facility]05-07-2025 NoteSubjective Patient ID: Alesha Bonilla is a 69 [...] (Oral) Physical Exam Exam conducted with a anatomy teacher present. Constitutional: Appearance: Normal appearance. She is [...] No follow-ups on file. Marva Schaefer, MS4 [facility] The above patient was seen with the medical student and the physical exam was done by myself with the student present, assisting and observing. The plan was discussed in detail with the student and the patient.[facility]04-28-2025 NoteReceived referral for rectal bleeding, called patient to schedule an appt with Dr. Jewell. Patient states she was unaware that referral was being sent. She will call back to schedule when ready. Referral scanned in.[facility]10-02-2024 History of Present illness Narrative* Fay Pascal NP - 02/19/2024 10:13 AM EDTAssociated Problem(s): Hypothyroidism, adult (CMS/HCC) Pt felt that [...] which may be causing issues as well * Fay Pascal NP - 02/19/2024 10:10 AM EDTAssociated Problem(s): Obstructive sleep apnea syndrome Elevated pulmonary artery pressures noted on ECHO Does not wear PAP * Fay Pascal NP - 02/19/2024 10:10 AM EDTAssociated Problem(s): Heart murmur Reviewed ECHO Will think about cardiology appt : she asked about it, if she wants it I will refer * TANIYA RESTREPO - 02/19/2024 9:00 AM EDT Pt went back to 75mcg-she was waking in the night with night swets- she was reading an article on [employer] about the medication causing night sweats could be the cause of heart or taking too much/toohigh of dose of her levothyroxine Pt stopped taking the calcium (time release) she started taking just a regular calcium and possiblyat 600mg Pt states that this appt is about the echo and thyroid * Fay Pascal, DELMY - 02/19/2024 9:00 AM EDT Images from the original note were not included. Alesha Bonilla is a 68 y.o. female presents with chief complaint of No chief complaint on file. HPI: Here to fu on ECHO as well as thyroid Murmur: no chest pain, heart palpitations, dyspnea or LE edema Thyroid Problem Presents for follow-up visit. Patient reports no anxiety, cold intolerance, constipation, depressedmood, diarrhea, dry skin, hair loss, hoarse voice, [...] Basal cell carcinoma 06/27/2023 Childbirth x3 Dyslipidemia (CMS/HCC) 06/27/2023 Gastroesophageal reflux disease 06/27/2023 Hypothyroidism, adult ([facility]) 06/27/2023 Lichenification and lichen simplex chronicus 06/27/2023 Osteoarthritis 06/27/2023 Osteoporosis, 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[facility]) 06/27/2023 Prediabetes 06/27/2023 Primary osteoarthritis of right [...] Does not wear PAP documented in this encounterCox [id number] History of Present illness Narrative* Fay Pascal NP - 01/07/2024 11:59 AM EDTAssociated Problem(s): Obstructive sleep apnea syndrome Non compliant with PAP use * Fay Pascal NP - 01/07/2024 11:59 AM EDTAssociated Problem(s): Heart murmur Does have murmur, no acute symptoms,however does have sleep apnea, non compliant with PAP use * Fay Pascal NP - 01/07/2024 11:58 AM EDTAssociated Problem(s): Encounter for subsequent annual wellness visit (AWV) in Medicare patient Reviewed Ht/Wt/BMI Recommend eye exam yearly Recommend dental exams twice a year Balance work/leisure activities Exercises is recommended most days of the week (appropriate as chronic conditions allow) Follow up yearly and prn * Fay Pascal NP - 01/07/2024 10:59 AM EDTAssociated Problem(s): Hypothyroidism, adult (CMS/HCC) Will increase thyroid dose back to 100mcg Recheck labs in 8 weeks * Fay Pascal NP - 01/07/2024 10:30 AM EDT Images from the original note [...] morning with a full glass of water, dagmar empty stomach, and do not take anything [...] Basal cell carcinoma 06/27/2023 Childbirth x3 Dyslipidemia ([facility]) 06/27/2023 Gastroesophageal reflux disease 06/27/2023 Hypothyroidism, adult ([facility]) 06/27/2023 Lichenification and lichen simplex chronicus 06/27/2023 Osteoarthritis 06/27/2023 Osteoporosis, 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[facility]) 06/27/2023 Prediabetes 06/27/2023 Primary osteoarthritis of right [...] List Items Addressed This Visit Osteoporosis, 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[facility]) Relevant Medications Calcium Carb-Cholecalciferol (Calcium + Vitamin D3) 600-10 MG-MCG tablet Vitamin D deficiency Relevant Medications Calcium Carb-Cholecalciferol (Calcium + Vitamin D3) 600-10 MG-MCG tablet Hypothyroidism, adult ([facility]) Will increase thyroid dose back to 100mcg [...] up yearly and prn documented in this encounterCox [id number] NoteChief Complaint consultation for rectal bleeding [facility] Staff 67yo year old female presents on [...] swallowing difficulties, no hearing loss, no ear infection(s),no nose bleeds. Cardiovascular: normal blood pressure, no [...] 50,000 intl units (1.25 mg) oral capsule, [id number] International_Unit= 1 cap(s), Oral, qWeek Allergies No Known Allergies No Known Medication Allergies Social History Alcohol - Denies Alcohol Use, 07/10/2023 Substance Abuse - Denies Substance Abuse, 07/10/2023 Tobacco Never (less than 100 in lifetime) Tobacco Use:. Never Smokeless Tobacco Use:., 07/10/2023 Family History Liver cancer: Brother. Primary yeimi (more content not included)...[facility] ColumbusComment on above:Result Comment: Electronically Signed By: MERCY MARTINEZ, Jose M Pretty\Date and Time Signed: 07/10/23 16:43 [id number] History of Present illness Narrative * Fay Pascal NP - 06/27/2023 10:57 AM ESTAssociated Problem(s): Heart murmur Not symptomatic, however we will work up with ECHO after done with rectal bleeding * Fay Pascal NP - 06/27/2023 10:51 AM ESTAssociated Problem(s): Rectal bleeding Check cbc, sed rate, iron ferritin, chem 14 Refer to General surgeon dr madrid for this Did have normal colonoscopy 2020: [place], sessile polyp, mild sigmoid diverticulosis, mild external hemorrhoids Repeat scope in 5 years which would be 2025 She does report that the blood drips out of rectum for 20 minutes at least at times No rectal exam completed, will have her see general surgeon for evaluation * Fay Pascal NP - 06/27/2023 10:50 AM ESTAssociated Problem(s): Hypothyroidism, adult (CMS/HCC) Check labs * Fay Pascal NP - 06/27/2023 9:40 AM EST Images from the original note were not [...] morning with a full glass of water, dagmar empty stomach, and do not take anything [...] Basal cell carcinoma 06/27/2023 Childbirth x3 Dyslipidemia ([facility]) 06/27/2023 Gastroesophageal reflux disease 06/27/2023 Hypothyroidism, adult ([facility]) 06/27/2023 Lichenification and lichen simplex chronicus 06/27/2023 Osteoarthritis 06/27/2023 Osteoporosis, 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[facility]) 06/27/2023 Prediabetes 06/27/2023 Primary osteoarthritis of right [...] chem 14 Refer to General surgeon dr madrid for this Did have normal colonoscopy 2020: [...] with ECHO after done with rectal bleeding YA VARGAS - 06/27/2023 9:40 AM EST Wants to ask about thyroid medication and cologuard documented in this encounterCox [id number] Instructions* Patient Instructions* Lorraine Mckinley PA-C - 07/30/2022 10:15 AM EDT 1.Fiber POWDER (metamucil, benefiber, citrucelle) - 1/2 tsp of powder mixed in 4-8 ounces of liquidevery morning x 1 week; increase 1 tsp of powder mixed in 4- 8 ounces of liquid every morning x 1 [...] needed/ if no improvement documented in this encounterKind[facility] History and physical note * Lorraine Mckinley PA-C - 07/30/2022 10:00 AM EDT COLORECTAL SURGERY New/Consult Alesha Bonilla 67 year old Chief Complaint: mucous drainage History of Present Illness: Alesha Bonilla is a 67 year old female coming to the [facility] office in regards to mucous drainage/leakage.Patient notes clear sticky discharge that is odorous after bowel movement and/or shower. She has ahistory of issues with diarrhea in the past ( 2 years ago). In which a CT scan,MRI and colonoscopy ( brought to front office developer to be scanned in) were completed [...] was otherwise normal. Patient tolerated procedure well. Computer Help Desk Specialist present: Yes, Kristin Fuentes MA Diagnostic tests reviewed for today's visit: Colonoscopy Report CT imaging MRI imaging All outside imaging and records were reviewed with the patient during consultation. Assessment Assessment and Plan: Alesha Bonilla is a 67 year old female who comes to [facility] for rectal mucous/ discharge. Upon [...] with her symptoms. Patient did not want towork up her pelvic floor muscles/ complete pelvic floor physical therapy. With this I suggested a fiber supplement to help bulk her stools and the mucous and a squatty potty to help with elimination.Patient would only like to follow up if needed/ if she has any more questions. She would not like aset follow up at this time. She was instructed to contact my office with any questions or concerns. Lorraine Mckinley PA-C Colorectal Surgery I spent a total of 45 minutes on the date of the service which included preparing to see the patient, [id number] patient care, completing clinical documentation, obtaining and/or reviewing separately obtained history, performing a medically appropriate examination, counseling and educating the pat ient/family/caregiver, and ordering medications, tests, or procedures. documented in this encounterKind[facility]05-24-2022 Evaluation note* Encounter Date Diagnosis Assessment Notes Treatment Notes Treatment Clinical Notes September, Psychophysiologic insomnia (ICD- 10 - F51.04) She has significant psychophysiologic insomnia with sleep initiation delay and with sleep reinitiation problems that sometimes are quite significant. She has habits of being awake in the bed, findingshe cannot really shut her mind off. She [...] but will call sooner if any problems September,Excessive daytime sleepiness (ICD-10 - G47.19)She has multifactorial excessive daytime sleepiness, with known untreated causes for EDS and additio nal possible contributors.She denies restless legs. She has [...] hypothyroidism likely adds to these EDS symptoms September,cquired hypothyroidism (ICD-10 - E03.9)She has been chronically treated for hypothyroidism, but her most recent available TSH in May showed significant continued hypothyroidism with a TSH of 9 (laboratory normal 4.7). I explained whatthis result means and discussed its implications for [...] advised until euthyroidism is established and documented September,2Obstructive sleep apnea (adult) (pediatric) (ICD-10 - G47.33)She has previous history of known obstructive sleep [...] to tolerate CPAP who meet other criteria September,Irritable bowel syndrome with both constipation and diarrhea (ICD-10 - K58.2)She has past history of irritable bowel symptoms and has followed with subspecialty care. She is advised that this diagnosis is unlikely to be related to her sleep disturbance or sleep disordered breathing. September,Lactose intolerance (ICD-10 - E73.9)We did not discuss this, but she is quite distressed by the diarrhea. It would be worth exploring whether she is adequately avoiding lactose and all its forms September,ther1 hour and 10 minutes spent [id number] with the patient, the majority in counseling and education [facility] Other 03-01-2022 Evaluation note* Encounter Date Diagnosis Assessment Notes Treatment Notes Treatment Clinical Notes Jul, Irritable bowel syndrome with di arrhea (ICD-10 - K58.0) Jul,GERD (gastroesophageal reflux disease) (ICD-10 - K21.9) Jul,Liver hemangioma (ICD-10 - D18.03) Jul,ther REASSURANCE REPEAT RUQ U/S IN 4-6 MONTHS (IN RECALL) [facility] Other 02-01-2022 Evaluation note* Encounter Date Diagnosis Assessment Notes Treatment Notes Treatment Clinical Notes Jun, Liver lesion (ICD-10 - K76.9) [facility] Other 01-27-2022 Evaluation note* Encounter Date Diagnosis Assessment Notes Treatment Notes Treatment Clinical Notes May, Abdominal pain (ICD-10 - R10.9) CT ABD PELVIS W/ CONTRAST PT ENCOURAGED TO START SUCRALFATE PREVOIUSLY PRESCRIBED BUT SHE DID NOT START F/U HERE AFTER CT SCAN May,Irritable bowel syndrome with diarrhea (ICD-10 - K58.0) May,GERD without esophagitis (ICD-10 - K21.9) May,Ventral hernia without obstruction or gangrene (ICD-10 - K43.9) [facility] Other 11-22-2021 Evaluation note* Encounter Date Diagnosis Assessment Notes Treatment Notes Treatment Clinical Notes Mar, Diarrhea (ICD-10 - R19.7) Mar,Weight loss (ICD-10 - R63.4) [facility] Other 11-01-2021 Evaluation note* Encounter Date Diagnosis Assessment Notes Treatment Notes Treatment Clinical Notes Mar, Abdominal cramping (ICD-10 - R10 .9) Mar,iarrhea (ICD-10 - R19.7) [facility] Other 10-07-2021 Evaluation note* Encounter Date Diagnosis [...] tolerated injection well with no adverse reactions. Feb,eft hip pain (ICD-10 - M25.552) [facility] Other Evaluation + Plan note No data available for this section General Surgery [place] Evaluation noteNo InformationNort [facility] Other Evaluation note* Diagnosis Rectal discharge- Primary Other symptoms involving digestive system [facility]* Diagnosis Rectal bleeding- Primary Hemorrhage of rectum and anus Hypothyroidism, adult (CMS/HCC) Other specified acquired hypothyroidism Vitamin D deficiency BMI 21.0-21.9, adult Heart murmur Undiagnosed cardiac murmurs documented in this encounter [facility]* Diagnosis Onset Date Resolution Status Dysuria noneactive [facility] Work Phone: Evaluation note* Diagnosis Hypothyroidism, adult ([facility])- Primary Other specified acquired hypothyroidism Heart murmur Undiagnosed cardiac murmurs Obstructive sleep apnea syndrome Obstructive sleep apnea (adult) (pediatric) [facility] Diagnosis Hypothyroidism, adult ([facility])- Primary Other specified acquired hypothyroidism [facility] noteNo assessment information availableSum[facility] Work Phone: Evaluation note* Diagnosis Onset Date Resolution Status Deformity of right knee joint acutePrimary osteoarthritis of right kneeacute [facility] Work Phone: Evaluation note* Diagnosis Rectal bleeding- Primary Hemorrhage of rectum and anus Hypothyroidism, adult ([facility]) Other specified acquired hypothyroidism Vitamin D deficiency BMI 21.0-21.9, adult Heart murmur Undiagnosed cardiac murmurs Encounter for subsequent annual wellness visit (AWV) in Medicare patient- Primary Hypothyroidism, adult ([facility]) Other specified acquired hypothyroidism Encounter for screening mammogram for malignant neoplasm of breast Vitamin D deficiency Osteoporosis, 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[facility]) Senile osteoporosis Heart murmur Undiagnosed cardiac murmurs Obstructive sleep apnea syndrome Obstructive sleep apnea (adult) (pediatric) Hypothyroidism, adult ([facility])- Primary Other specified acquired hypothyroidism Heart murmur Undiagnosed cardiac murmurs Obstructive sleep apnea syndrome Obstructive sleep apnea (adult) (pediatric) Hypothyroidism, adult ([facility])- Primary Other specified acquired hypothyroidism [facility] Diagnosis Encounter for subsequent annual wellness visit (AWV) in Medicare patient- Primary Hypothyroidism, adult ([facility]) Other specified acquired hypothyroidism Encounter for screening mammogram for malignant neoplasm of breast Vitamin D deficiency Osteoporosis, 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[facility]) Senile osteoporosis Heart murmur Undiagnosed cardiac murmurs Obstructive sleep apnea syndrome Obstructive sleep apnea (adult) (pediatric) [facility] Diagnosis Rectal bleeding- Primary Hemorrhage of rectum and anus Hypothyroidism, adult ([facility]) Other specified acquired hypothyroidism Vitamin D deficiency BMI 21.0-21.9, adult Heart murmur Undiagnosed cardiac murmurs Encounter for subsequent annual wellness visit (AWV) in Medicare patient- Primary Hypothyroidism, adult ([facility]) Other specified acquired hypothyroidism Encounter for screening mammogram for malignant neoplasm of breast Vitamin D deficiency Osteoporosis, 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[facility]) Senile osteoporosis Heart murmur Undiagnosed cardiac murmurs Obstructive sleep apnea syndrome Obstructive sleep apnea (adult) (pediatric) Hypothyroidism, adult ([facility])- Primary Other specified acquired hypothyroidism Heart murmur Undiagnosed cardiac murmurs Obstructive sleep apnea syndrome Obstructive sleep apnea (adult) (pediatric) Hypothyroidism, adult ([facility])- Primary Other specified acquired hypothyroidism [facility] Diagnosis Vaginal discharge Leukorrhea, not specified as infective [facility] Diagnosis Rectal bleeding- Primary Hemorrhage of rectum and anus Hypothyroidism, adult ([facility]) Other specified acquired hypothyroidism Vitamin D deficiency BMI 21.0-21.9, adult Heart murmur Undiagnosed cardiac murmurs Encounter for subsequent annual wellness visit (AWV) in Medicare patient- Primary Hypothyroidism, adult ([facility]) Other specified acquired hypothyroidism Encounter for screening mammogram for malignant neoplasm of breast Vitamin D deficiency Osteoporosis, 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[facility]) Senile osteoporosis Heart murmur Undiagnosed cardiac murmurs Obstructive sleep apnea syndrome Obstructive sleep apnea (adult) (pediatric) Hypothyroidism, adult ([facility])- Primary Other specified acquired hypothyroidism Heart murmur Undiagnosed cardiac murmurs Obstructive sleep apnea syndrome Obstructive sleep apnea (adult) (pediatric) Hypothyroidism, adult ([facility]) Other specified acquired hypothyroidism [facility] Diagnosis Rectal bleeding- Primary Hemorrhage of rectum and anus Hypothyroidism, adult ([facility]) Other specified acquired hypothyroidism Vitamin D deficiency BMI 21.0-21.9, adult Heart murmur Undiagnosed cardiac murmurs Encounter for subsequent annual wellness visit (AWV) in Medicare patient- Primary Hypothyroidism, adult ([facility]) Other specified acquired hypothyroidism Encounter for screening mammogram for malignant neoplasm of breast Vitamin D deficiency Osteoporosis, 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[facility]) Senile osteoporosis Heart murmur Undiagnosed cardiac murmurs Obstructive sleep apnea syndrome Obstructive sleep apnea (adult) (pediatric) Hypothyroidism, adult ([facility])- Primary Other specified acquired hypothyroidism Heart murmur Undiagnosed cardiac murmurs Obstructive sleep apnea syndrome Obstructive sleep apnea (adult) (pediatric) Rectal bleeding- Primary Hemorrhage of rectum and anus [facility] Diagnosis Vaginal discharge Leukorrhea, not specified as infective [facility] Diagnosis Rectal bleeding- Primary Hemorrhage of rectum and anus Hypothyroidism, adult ([facility]) Other specified acquired hypothyroidism Vitamin D deficiency BMI 21.0-21.9, adult Heart murmur Undiagnosed cardiac murmurs Encounter for subsequent annual wellness visit (AWV) in Medicare patient- Primary Hypothyroidism, adult ([facility]) Other specified acquired hypothyroidism Encounter for screening mammogram for malignant neoplasm of breast Vitamin D deficiency Osteoporosis, 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[facility]) Senile osteoporosis Heart murmur Undiagnosed cardiac murmurs Obstructive sleep apnea syndrome Obstructive sleep apnea (adult) (pediatric) Hypothyroidism, adult ([facility])- Primary Other specified acquired hypothyroidism Heart murmur Undiagnosed cardiac murmurs Obstructive sleep apnea syndrome Obstructive sleep apnea (adult) (pediatric) Dermatophytosis of nail- Primary Dystrophic nail Other specified disease of nail Pain around toenail, left foot Pain around toenail, right foot Difficulty walking Difficulty in walking [facility] Diagnosis Rectal bleeding- Primary [...] specified acquired hypothyroidism [facility]* Diagnosis Rectal bleeding- Primary [...] Description Date Medical History high cholesterol Medical HistoryHypothyroidismSurgical Historymeniscus repairSurgical History rotator cuff repairSurgical Historylipoma removed from right shoulderSurgical Historyskin cancer removal from lipHospitalization Historysee above [facility] Other History general Narrative - Reported* Type Description Date Medical History high cholesterol Medical HistoryHypothyroidismMedical Historyobstructive sleep apneaSurgical Historymeniscus repairSurgical Historyrotator cuff repairSurgical Historylipoma removed from right shoulderSurgical Historyskin cancer removal from lip Hospitalization Historysee above [facility] Discharge instructions No data available for this section General Surgery [place] Progress note No data available for this section General Surgery [employer] Reason for referral (narrative)* Consultation (Routine) - Pending ReviewSpecialtyDiagnoses / ProceduresReferred By ContactReferred To ContactGeneral Surgery Diagnoses Rectal bleeding Procedures [place] OFFICE/OUTPATIENT NEW HIGH MDM 60 MINUTES Fay Pascal NP [address] [place] [address] Jose M Madrid MD [address] [place] [address], [address] [place] [address] Referral IDStatusReasonStart DateExpiration DateVisits RequestedVisits [id number] Review Specialty Services Required / [facility] Summary Purpose Family History Relationship Condition Age at Onset Recorded Date/T sarita father Malignant neoplasm of lung Unknown brotherMalignant neoplasm of lungUnknownbrotherMalignant neoplasm of liver UnknownbrotherDeceasedUnknownfatherDeceasedUnknownfamily memberDeceasedUnknown Advance Directives Advance Directive Response Recorded Date/ Time Advance Directives No October 04 3:45pm Chief Complaint and Reason for Visit Chief Complaint Poss uti Reason for Visit Dysuria Chief Complaint Poss uti DysuriaReason for VisitDysuria Chief Complaint M25.561 - Pain in ri ght knee NEW RT KNEE PAIN NX Chief Complaint M25.561 - Pain in ri ght knee NEW RT KNEE PAIN NXReason for VisitDeformity of right knee joint Primary osteoarthritis of right knee Reason for Referral SpecialtyDiagnoses / ProceduresReferred By ContactReferred To ContactRadiology Diagnoses Heart murmur Procedures Echocardiogram 2D complete Fay Pascal, DELMY [address] [place] [address] [facility] [address] [place] [address] Referral IDStatusReasonStart DateExpiration DateVisits RequestedVisits [id number] Perform Procedure / Additional Source Comments REASON FOR VISIT (unrecogniz ed section and content) ReasonCommentsNew PatientClear discharge from rectumReasonOnset DateCommentsMed Awpdat314ReasonCommentsNail careMarlene Ma 69yo New patient presents for nail care. Patient was last seen 02/2022 for nail care. Patient relates she has used fungi foam and listerine and vinegar in the past with little results. Patient has no interest in oral treatment, but would like options at this time. SS 9ReasonCommentsMed RefillReasonCommentsMedicare Annual Wellness Visit Initial INFORMATION SOURCE (unrecogn ized section and content) DATE CREATED AUTHOR 05/17/2022 [facility] DATE CREATED AUTHOR AUTHOR'S ORGANIZ ATION 07/31/2022 [facility] DATE CREATED AUTHOR AUTHOR'S ORGANIZ ATION 08/06/2023 [facility] DATE CREATED AUTHOR AUTHOR'S ORGANIZ ATION 03/25/2024 [facility] DATE CREATED AUTHOR AUTHOR'S ORGANIZ ATION 09/11/[address] [facility] DATE CREATED AUTHOR AUTHOR'S ORGANIZ ATION 01/13/2025 [facility] DATE CREATED AUTHOR AUTHOR'S ORGANIZ ATION 03/05/2025 [facility] Source Comments (unrecognize d section and content) In the event this informatio n is protected by the Federal Confidentiality of Alcohol and Drug Abuse Patient Records regulations: The Federal rules restrict any use of the information to criminally investigate or prosecute any alcohol or drug abuse patient.[facility] Care Teams (unrecognized sec tion and content) Team Status: Active Member Role Status Dates Fay Pascal Primary Care Provider Active Team Status: Inactive Member Role Status Dates Bright Mccall II, MD Attending Provider Active Start: March 19, 2024 End: March 19, 2024 Team Status: Inactive Member Role Status Dates Bright Mccall II, MD Attending Provider Active Start: March 19, 2024 End: March 19, 2024[facility]cal[facility] Care ProviderActiveStart: March 19, 2024 End: March 19, 2024Team MemberRelationshipSpecialtyStart DateEnd Date Phoenix Garner [address] [place] [address] PCP - GeneralFamily Medicine07/26/22Team MemberRelationshipSpecialtyStart DateEnd Date Phoenix Garner MD [address] [place] [address] PCP - Generalmily Medicine06/18/23Team MemberRelationshipSpecialtyStart DateEnd Date Phoenix Garner MD [address] [place] [address] PCP - [facility] Medicine06/18/23Team MemberRelationshipSpecialtyStart DateEnd Date Phoenix Garner MD [address] [place] [address] PCP - [facility] Medicine06/18/23 Team Status: Active Member Role Status Dates Phoenix Garner MD Primary Care Provider Active Team Status: Inactive Member Role Status Dates Phoenix Garner MD Primary Care Provider Active S tart: December 03, 2023 End: December 03, 2023Dav Frances ProviderActiveStart: December 03, 2023 End: December 03, 2023 Team Status: Inactive Member Role Status Dates Christiane Wade APRN Attending Provider Active Start: December 03, 2023 End: December 03, 2023Team MemberRelationshipSpecialtyStart DateEnd Date Phoenix Garner MD [address] [place] [address] PCP - [facility] Medicine06/18/23Team MemberRelationshipSpecialtyStart DateEnd Date Phoenix Garner MD [address] [place] [address] PCP - [facility] Medicine06/18/23Team MemberRelationshipSpecialtyStart DateEnd Date Phoenix Garner MD [address] [place] [address] PCP - GeneralFamily Medicine06/18/23 Team Status: Active Member Role Status Dates Bright Mccall II, MD Attending Provider Active Start: March 19, 2024 Team MemberRelationshipSpecialtyStart DateEnd Date Phoenix Garner MD [address] [place] [address] PCP - GeneralFamily Medicine06/18/23Team MemberRelationshipSpecialtyStart DateEnd Date Phoenix Garner MD [address] [place] [address] PCP - GeneralFamily Medicine06/18/23Team MemberRelationshipSpecialtyStart DateEnd Date Phoenix Garner MD [address] [place] [address] PCP - GeneralFamily Medicine06/18/23Team MemberRelationshipSpecialtyStart DateEnd Date Phoenix Garner MD [address] [place] [address] PCP - GeneralFamily Medicine06/18/23Team MemberRelationshipSpecialtyStart DateEnd Date Phoenix Garner MD [address] [place] [address] PCP - GeneralFamily Medicine06/18/23Team MemberRelationshipSpecialtyStart DateEnd Date Fay Pascal APRN - EQUIPMENT ANALYST [address] [place] [address] PCP - GeneralNurse Practitioner08/18/24Team MemberRelationshipSpecialtyStart Date End Date Phoenix Garner MD [address] [place] [address] PCP - GeneralFamily Medicine06/18/23 Phoenix Garner MD [address] [place] [address] PCP - [facility]06/26/24Team MemberRelationshipSpecialtyStart DateEnd Date Phoenix Garner MD [address] [place] [address] PCP - [facility] Medicine06/18/23 Phoenix Garner MD [address] [place] [address] PCP - [facility]06/26/24Team MemberRelationshipSpecialtyStart DateEnd Date Phoenix Garner MD [address] [place] [address] [facility]06/18/23 Phoenix Garner MD [address] [place] [address] PCP - [facility]06/26/24Team MemberRelationshipSpecialtyStart DateEnd Date Phoenix Garner MD [address] [place] [address] [facility]06/18/23 Phoenix Garner MD [address] [place] [address] PCP - [facility]06/26/24Team MemberRelationshipSpecialtyStart DateEnd Date Fay Pascal APRN - EQUIPMENT ANALYST [address] [place] [address] [facility] - [facility]08/18/24Team MemberRelationshipSpecialtyStart Date End Date Phoenix Garner MD [address] [place] [address] PCP - [facility]06/18/23 Phoenix Garner MD [address] [place] [address] [facility] - [facility]06/26/24 Fay Pascal NP [address] [place] [address] Nurse Pract[facility]erP[facility]09/29/24Team MemberRelationshipSpecialtyStart DateEnd Date Phoenix Garner MD [address] [place] [address] PCP - [facility]06/18/23 Phoenix Garner MD [address] [place] [address] PCP [facility]06/26/24 Fay Pascal NP [address] [place] [address] Nurse PractitionerFamily Medicine09/29/24Team MemberRelationshipSpecialtyStart DateEnd Date Phoenix Garner MD [address] [place] [address] PCP - GeneralFamily Medicine06/18/23 Phoenix Garner MD [address] [place] [address] PCP - [facility]06/26/24 Fay Pascal, EQUIPMENT ANALYST [address] [place] [address] Nurse PractitionerWay[facility] Systemly Medicine09/29/24Team MemberRelationshipSpecialtyStart DateEnd Date Phoenix Garner MD [address] [place] [address] PCP - GeneralFamily Medicine06/18/23 Phoenix Garner MD [address] [place] [address] PCP - [facility]06/26/24 Fay Pascal, EQUIPMENT ANALYST [address] [place] [address] Nurse Practitionermily Medicine09/29/24Team MemberRelationshipSpecialtyStart DateEnd Date Phoenix Garner MD PCP - GeneralFamily Medicine06/18/23 Phoenix Garner MD [address] [place] [address] [facility]06/26/24 Fay Pascal NP [address] [place] [address] Nurse [facility]09/29/24Team MemberRelationshipSpecialtyStart DateEnd Date Phoenix Garner MD PCP - [facility] Phoenix Garner MD PCP - Man [facility]06/18/23 Phoenix Garner MD [address] [place] [address] [facility]06/26/24 Fay Pascal NP [address] [place] [address] Nurse [facility]09/29/24 Goals (unrecognized section and content) Goals may [...] BE BASED ON THE PRIMARY CLINICAL RECORDS. [facility] [employer] [facility]. provides no warranty or guarantee of the accuracy or completeness of information in this document.
--- OUTSIDE RECORDS SUMMARY | 2025-03-19 09:13 | XMS_ITS | Clinical Summary ---
Author Organization [employer] [facility] tem Address [id number] [address] [place] [address] Care Team Providers Care Camp Director Name Role Phone Phoenix Ganonn MD Primary Care Provider Allergies No known active allergies Medications MedicationSigDispense QuantityRefillsLast FilledStart DateEnd DateStatus levothyroxine (SYNTHROID, LEVOTHROID) 75 MCG tablet Take 1 tablet by mouth daily.Active SUPREP BOWEL PREP KIT 17.5-3.13-1.6 gram recon soln 177 ml,actual weight, 2 times daily, Oral 177 mL 1Active Active Problems No known active problems Family History Medical HistoryRelationNameCommentsCancerBrotherliverCancerFatherlungBreast cancerMaternal AuntRelationNameStatusCommentsBrotherDeceasedDaughter 1Alive Daughter 2AliveFatherDeceasedMaternal AuntMotherAliveSisterAliveSonAlive Social History Tobacco UseTypesPacks/DayYears UsedDateSmoking Tobacco: NeverSmokeless Tobacco: NeverAlcohol UseStandard Drinks/WeekCommentsNo0 (1 standard drink = 0.6 oz pure alcohol)ChildcareAnswerDate FstoyggsQcojucpvkZcykmrg93/12/2019EmploymentAnswer Date OuxfdcixSfvanafpspBbcdwyz99/12/2019Purpose - LifeAnswerDate RecordedPurpose and direction in anfdLypflug09/11/2021CommentsNoSex and Gender InformationValueDate RecordedSex Assigned at BirthNot on fileLegal SexFemale 12/23/2014 11:32 AM EDTGender IdentityNot on fileSexual OrientationNot on file Last Filed Vital Signs Vital SignReadingTime TakenCommentsBlood Gfavpwyj237/5610 1:06 PM EDT Vzmry7122 1:06 PM URZPdxpuawqyik88.8 ??C (98.2 ??F)03/06/2021 1:06 PM EDTRespiratory Wyzt0003 1:06 PM EDTOxygen Tmojjqtdfk089%03/06/2021 1:06 PM EDTInhaled Oxygen Concentration--Neztwf10.8 kg (134 lb)03/06/2021 8:48 AM EDT Gtnsee880.6 cm (5' 6 )03/06/2021 8:48 AM EDTBody Mass Index21.6303/06/2021 8:48 AM EDT Plan of Treatment Health MaintenanceDue DateLast DoneCommentsDepression Mgiuqxtyo62/28/1968Tobacco Raiwihusn74/28/1968Adult BMI Vhnpdbhhi28/28/1974DTaP,Tdap and Td Vaccines (1 - Tdap)07/17/19743604Ugslwsxnvaf07/28/2001Zoster (Shingles) Vaccine (1 of 2)2005 Fall Risk Qpxhfmcbu67/28/2021Influenza Riawjzo9601/18/2025 Medical Devices Not on file Insurance Advance Directives TypeDate RecordedPatient RepresentativeExplanationLiving Will02/09/2025 7:33 AM Durable Power of Attorney02/09/2025 7:32 AM Care Teams Team MemberRelationshipSpecialtyStart DateEnd Date Phoenix Gannon MD PCP - GeneralFamily Medicine11/16/20
--- OUTSIDE RECORDS SUMMARY | 2025-03-19 09:13 | XMS_ITS | Encounter Summary ---
Author Organization [facility] Address [address] [place] [address] Care Team Providers Care Signal Constructor Name Role Phone Phoenix Gannon MD Primary Care Provider [phone] Phoenix Gannon MD Unavailable Fay Pascal SALES RECRUITMENT SPECIALIST Unavailable [phone] Encounter Details DateTypeDepartmentCare Team (Latest Contact Info)Fdeofnqbefc90/28/2024Clinisync Result Encounter [facility] External Department Unsolicited Fay Pascal, SALES RECRUITMENT SPECIALIST [address] [place] [address] Social History Tobacco UseTypesPacks/DayYears UsedDateSmoking Tobacco: NeverSmokeless [...] or relatives?More than three times a week06/26/2023ttends Hinduism ServicesNot on file06/26/2023o you belong to any clubs or organizations such as religious groups, unions, fraternal or athletic groups, or school groups?No06/26/2023How often do you attend meetings of the clubs or organizations you belong to?Never06/26/2023re you , , , , never , or living with a partner?Lqzcknp6506/26/2023UDIT-C AnswerDate RecordedQ1: How often do you have [...] hard at all06/26/2023 PHQ-2AnswerDate RecordedPatient Health Questionnaire-2 [facility] [place] [facility] Occup[facility] - Occupational Stress QuestionnaireAnswerDate RecordedDo you feel stress - tense, restless, nervous, or anxious, or unable to sleep at night because yourmind is troubled all the time - these days?To some jpqxdd2306/26/2023Exercise Vital SignAnswerDate RecordedOn average, how many days [...] depressed, or hopelessNot at all01/12/2025 10:13 AM AYET Taniya Groves MAPatient Health Questionnaire-2 Rtvmm506 10:13 AM Taniya Etienne MA * QuestionAnswerDate [...] 10:13 AM Taniya Etienne MAPatient Health Questionnaire-9 Juvyz024 10:13 AM Taniya Etienne MA documented as of this encounter Plan of Treatment Not on file documented as of this encounter Procedures Procedure NamePriorityDate/TimeAssociated DiagnosisCommentsCA ECHO DOPPLER AVMPTBWU72/28/2024 11:16 AM EDT documented in this encounter Results * CA ECHO DOPPLER COMPLETE (01/15/2024 11:16 AM EDT)Anatomical RegionLaterality ModalityOtherSpecimen (Source)Anatomical Location / LateralityCollection Method / VolumeCollection TimeReceived Time01/15/2024 11:16 AM EDT Narrative 01/15/2024 11:17 AM EDT [facility] ?[address] ? [place] [address] ? Cardiology Report ? Signed ? Patient: MAAG,ALESHA A ?MR#: [id number] ?? : 1955 ?Acct:[id number] ?? Age/Sex: 68 / F ?ADM Date: 01/15/24 ?? Loc: CARD ? Attending Dr: Fay Pascal NP ? Ordering Physician: Fay Pascal NP ?? Date of Service: 01/15/24 ?? Procedure(s): CA echo doppler complete ?? Accession Number(s): [id number] ? cc: Fay Pascal NP ? Patient Name: ? ALESHA MAAG ? MR#: [id number] ? : 1955 ? Exam Date: 01/15/2024 ?? Ordering Doctor: YAJAIRA Pascal CNP ? ECHOCARDIOGRAM REPORT ? PROCEDURE: ? CA ECHO DOPPLER COMPLETE ? INDICATIONS: ? Heart murmur ? COMPARISON: ? None. ? DESCRIPTION: ? COMPLETE ECHOCARDIOGRAM Real-time transthoracic ?? echocardiography with 2D, M-mode, spectral and color flow Doppler performed. ? QUALITY: ? Technical quality was good. ? LEFT VENTRICLE: ? Normal chamber size. Proximal septal hypertrophy (sigmoid ?? septum). ??Normal systolic function. ?? LV EF: ? Normal left ventricular ejection fraction, (55-60%). ?? DIASTOLIC: ? Normal diastolic function. ?? ATRIAL SEPTUM: ? Visually appears intact. ?? LEFT ATRIUM: ? Mild dilatation. ?? RIGHT ATRIUM: ? Normal chamber size. ?? RIGHT VENTRICLE: ? Normal chamber size. Normal right ventricular systolic ?? function. ? TRICUSPID VALVE: ? Normal mobility and thickness. No stenosis with mild ?? regurgitation. Doppler studies reveal mildly (35-45) elevated right sided ?? pressures. RVSP 39 mmHg ? MITRAL VALVE: ? Normal mobility and thickness. ?? No evidence of mitral valve ?? stenosis. ??There is no mitral annular calcification. Mild mitral ?? regurgitation. ? AORTIC VALVE: ? Normal trileaflet appearance. No visible sclerosis. ??Normal ?? leaflet mobility. ??No evidence of aortic valve stenosis. Mild to moderate ?? aortic regurgitation. ? AORTIC ROOT: ? Normal diameter and appearance. Ascending aorta is normal in ?? size. ? PULMONIC VALVE: ? Normal thickness and mobility. No stenosis. Trivial ?? regurgitation. ? PERICARDIUM: ? No evidence of pericardial effusion. ? IVC: ? Collapses with inspirations. ? PLEURA: ? CONCLUSION: ? 1. Normal left ventricular size and systolic function. ??LVEF is estimated at ?? 55 to 60%. ?? 2. Normal right ventricular size and systolic function. ?? 3. Mild left atrial dilatation. ?? 4. Mild mitral and tricuspid regurgitation. ?? 5. Mild to moderate aortic regurgitation. ?? 6. Mildly elevated right-sided pressures. ??RVSP is 39 mmHg. ? Adult Echocardiography Procedure Report ?? Left Ventricle ?? LVEDD (3.7 - 5.6 cm): ? 4.45 cm ?? LVESD (2.2 - 4.0 cm): ? 2.88 cm ?? LVIVS thickness (0.6 - 1.2 cm): ? 1.13 cm ?? LVPW thickness (0.5 - 1.0 cm): ? 0.86 cm ?? e': ? 0.13 m/s ?? E - e': ? 6.23 ?? LVOT Max Gradient: ? 2.61 mm[Hg] ?? LVOT Area (cm2): ? 0.81 m/s ?? Peak Velocity (LVOT): ? 0.81 m/s ?? Mean Velocity (LVOT): ? 0.60 m/s ?? LVOT Diameter ? 2.24 cm ?? Left Atrium ?? LA Volume Index (2D A2C): ? 39.83 ml/m2 ?? Left Atrium Systolic Dimension: ? 3.91 cm ?? Mitral Valve ?? MV E to A Ratio: ? 1.34 ?? Mitral Valve A-Wave Peak Velocity: ? 0.60 m/s ?? Mitral Valve E-Wave Peak Velocity: ? 0.80 m/s ?? Right Ventricle ?? Aorta ?? AO Root Diam: ? 3.14 cm ?? Ascending Ao Diam: ? 2.95 cm ?? Aortic Valve ?? AoV Area (Peak Ravi): ? 2.09 cm2, 2.09 cm2 ?? AoV Area (VTI): ? 2.20 cm2, 2.20 cm2 ?? Deceleration Kittson: ? 1.95 m/s2 ?? Pressure Half-Time: ? 602.12 ms ?? Peak Velocity(Antegrade Flow): ? 1.53 m/s ?? Peak Gradient(Antegrade Flow): ? 9.37 mm[Hg] ?? Mean Velocity(Antegrade Flow): ? 0.93 m/s ?? Mean Gradient(Antegrade Flow): ? 4.10 mm[Hg] ?? Velocity Time Integral: ? 32.35 cm ?? Tricuspid Valve ?? Peak Velocity (Regurgitant Flow): ? 2.98 m/s, 2.42 m/s ?? Pulmonic Valve ?? Mean Gradient: ? 2.05 mm[Hg] ?? Mean Velocity: ? 0.65 m/s ?? Peak Velocity: ? 1.17 m/s, 0.96 m/s ?? Peak Gradient: ? 5.44 mm[Hg], 3.70 mm[Hg] ?? Right Atrium ?? Right Atrium Systolic Pressure: ? 40.78 ml, 40.78 ml ? Dictated by: Lambert Gaitan M.D. on 01/15/2024 at 11:13 ? Approved by: Lambert Gaitan M.D. on 01/15/2024 at 11:16 ? Dictated By: ?LAMBERT GAITAN ? Signed By: ?01/15/24 1117 ? DD/ 1116 ? TD/TT: ? Hand Tool Lapper: Procedure Note Radiology, Radiologist, - 01/15/2024 [place] [address] Cardiology Report Signed Patient: ALESHA BONILLA AMR#: [id number] : 1955cct:[id number] Age/Sex: 68 / FADM Date: 01/15/24 Loc: CARD Attending Dr: Fay Pascal NP Ordering Physician: Fay Pascal NP Date of Service: 01/15/24 Procedure(s): CA echo doppler complete Accession Number(s): [id number] cc: Fay Pascal NP Patient Name: ALESHA BONILLA MR#: [id number] : 1955 Exam Date: 01/15/2024 Ordering Doctor: [...] Area (VTI): 2.20 cm2, 2.20 cm2 Deceleration Kittson: 1.95 m/s2 Pressure Half-Time: 602.12 ms Peak [...] GAITAN Signed By:01/15/24 1117 DD/ 1116 TD/TT: Hand Tool Lapper: Authorizing ProviderResult TypeResult StatusLisa Chaddexter NPCLINISYNC IMAGING Final Result documented in this encounter Visit Diagnoses Not on filedocumented in this encounter Additional Health Concerns AssessmentNoted TimePHQ-9 Depression Total Score: 10:38 AM EDT documented as of this encounter Care Teams Team MemberRelationshipSpecialtyStart DateEnd Date Phoenix Gannon MD PCP - GeneralFamily Medicine06/18/23 Phoenix Gannon MD [address] [place] [address] PCP - ACO Reach06/26/24 Fay Pascal NP [address] [place] [address] Nurse PractitionerFamily Medicine09/29/24documented as of this encounter
--- OUTSIDE RECORDS SUMMARY | 2025-03-19 09:13 | XMS_ITS | Clinical Summary ---
Author Organization [facility] Address [address], [address] [place] [address] Care Team Providers Care Citizenship Instructor Name Role Phone Fay Pascal APRN, NP Primary Care Provide r Allergies No known active allergies Medications MedicationSigDispense QuantityRefillsLast FilledStart DateEnd DateStatus levothyroxine (SYNTHROID) 75 MCG tablet Take 1 tablet by mouth every morning (before breakfast)5Active Calcium Carb-Cholecalciferol (CALCIUM CARBONATE-VITAMIN D3 PO) Take by mouthActive Probiotic Product (PROBIOTIC DAILY PO) Take by mouthActive Active Problems No known active problems Family History Medical HistoryRelationNameCommentsBreast CancerMaternal AuntDeep Vein ThrombosisNeg HxOvarian CancerNeg HxRelationNameStatusCommentsMaternal Aunt Social History Tobacco UseTypesPacks/DayYears UsedDateSmoking Tobacco: NeverSmokeless Tobacco: Never Tobacco Cessation:Counseling Given: Not Answered Alcohol UseStandard Drinks/WeekCommentsYes0 (1 standard drink = 0.6 oz pure alcohol)occLICKING [facility] UtilitiesAnswerDate RecordedIn the past 12 months has the [employer], gas, oil, or water [employer] threatened to shut off services in your home?No08/20/2024PHQ-2AnswerDate RecordedPHQ-9 Total Fbmng521Hunger Vital SignAnswerDate RecordedWithin the past 12 months, you worried that your food would run out before you got the money to buymore.Never true08/20/2024 Within the past 12 months, the food you bought just didn't last and you didn't have money to get more.Never true08/20/2024PRAPARE - TransportationAnswerDate RecordedIn the past 12 months, has lack of transportation kept you from medical appointments or from getting medications?No08/20/2024In the past 12 months, has lack of transportation kept you from meetings, work, or from getting things needed for daily living?No08/20/2024Housing Stability Vital SignAnswerDate RecordedIn the last 12 months, was there a time when you were not able to pay the mortgage or rent on time?No08/20/2024In the past 12 months, how many times have you moved where you were living?t any time in the past 12 months, were you homeless or living in a retirement (including now)?No08/20/2024 Food InsecurityAnswerDate RecordedWithin the past 12 months, you worried that your food would run out before you got the money to buymore.Within the past 12 months, the food you bought just didn't last and you didn't have money to get more.CommentsUnknownSex and Gender Information ValueDate RecordedSex Assigned at BirthNot on fileLegal NjlJpqzoi32/01/2025 10:03 AM EDTGender IdentityNot on fileSexual OrientationNot on file Last Filed Vital Signs Vital SignReadingTime TakenCommentsBlood Dpgdvdvx898/7004 8:43 AM EDT Pulse--Temperature--Respiratory Rate--Oxygen Saturation--Inhaled Oxygen Concentration--Ylkpuy03.1 kg (137 lb)09/10/2024 8:43 AM BDUUytted624.6 cm (5' 6 )09/10/2024 8:43 AM EDTBody Mass Index22.11009/10/2024 8:43 AM EDT Plan of Treatment Health MaintenanceDue DateLast DoneCommentsHepatitis C yituyt5207/17/1973 DTaP/Tdap/Td vaccine (1 - Tdap)07/17/19742246Iwaibm77/28/3550Fmjuietwqrf58/28/2001 Colorectal Cancer Liwbkr5107/17/2000FIT/FOBT: Average risk2000Fecal-DNA (Cologuard): Average risk2000Sigmoidoscopy/CT xspgjorvrcyy99/28/2001 Shingles vaccine (1 of 2)2005DEXA (modify frequency per FRAX score) 2010reast cancer /, 03/29/2017Annual Wellness Visit (Medicare)08/18/2024Flu vaccine (#1)12/18/2024OVID-19 Vaccine ( season)2025Depression Cpgbin33604/07/2024, 08/20/2024Respiratory Syncytial Virus (RSV) or age 60 yrs+ (1 - 1-dose 75+ series)2030 Pneumococcal 50+ years QvhkyhtQgtwsocxe46/11/2022, 07/15/2014, 08/18/2009 Hepatitis A vaccineAged OutNo longer eligible based on patient's age to complete this topicHepatitis B vaccineAged OutNo longer eligible based on patient's age to complete this topicHib vaccineAged OutNo longer eligible based on patient's age to complete this topicMeningococcal (ACWY) vaccineAged OutNo longer eligible based on patient's age to complete this topicMeningococcal B vaccineAged OutNo longer eligible based on patient's age to complete this topicPolio vaccineAged OutNo longer eligible based on patient's age to complete this topic Insurance Care Teams Team MemberRelationshipSpecialtyStart DateEnd Date ChadFay renteria, [employer] STOCK CLERK - FINISHING POWDER PRESS OPERATOR [facility] [place] [address] PCP - GeneralNchip Practitioner08/18/24"
--- OUTSIDE RECORDS SUMMARY | 2025-03-19 09:13 | XMS_ITS | Encounter Summary ---
Author Organization [facility] Address [address] [place] [address] Care Team Providers Care Machine Repairer Maintenance Name Role Phone Phoenix Gannon MD Primary Care Provider [phone] Phoenix Gannon MD Primary Care Provider [phone] Phoenix Gannon MD Unavailable Fay Pascal NP Unavailable [phone] Encounter Details DateTypeDepartmentCare Team (Latest Contact Info)Teqklgmmoty11/22/2023Clinisync Result Encounter [facility] Unsolicited Phoenix Gannon MD [address] [place] [id number] Social History Tobacco UseTypesPacks/DayYears UsedDateSmoking Tobacco: Never Assessed Humiliation, Afraid, Rape, and Kick questionnaireAnswerDate RecordedWithin the last year, have you been afraid of your partner or ex-partner?No06/26/2023Within the last year, have you been humiliated or emotionally abused in other ways by your partner or ex-partner?No06/26/2023Within the last year, have you been kicked, hit, slapped, or otherwise physically hurt by your partner or ex-partner?No06/26/2023Within the last year, have you been raped or forced to have any kind of sexual activity by your partner or ex-partner?No06/26/2023 Social Connection and Isolation PanelAnswerDate RecordedIn a typical week, how many times do you talk on the phone with family, friends, or neighbors?More than three times a week06/26/2023How often do you get together with friends or relatives?More than three times a week06/26/2023ttends Restoration ServicesNot on file06/26/2023o you belong to any clubs or organizations such as jew groups, unions, fraternal or athletic groups, or school groups?No06/26/2023How often do you attend meetings of the clubs or organizations you belong to?Never06/26/2023 Are you , , , , never , or living with a partner?Vbhroyb5306/26/2023UDIT-CAnswerDate RecordedQ1: How often do you have a drink containing alcohol?Never06/26/2023Q2: How many drinks containing alcohol do you have on a typical day when you are drinking?Patient does not drink 06/26/2023Q3: How often do you have six or more drinks on one occasion?Never 06/26/2023Overall Financial Resource Strain (CARDIA)AnswerDate RecordedHow hard is it for you to pay for the very basics like food, housing, medical care, and heating?Not hard at all06/26/2023HQ-2AnswerDate RecordedPatient Health Questionnaire-2 Iueyo081[facility] [place] of Occupational Health - Occupational Stress QuestionnaireAnswerDate RecordedDo you feel stress - tense, restless, nervous, or anxious, or unable to sleep at night because yourmind is troubled all the time - these days?To some jdeiay4806/26/2023Exercise Vital Sign AnswerDate RecordedOn average, how many days per week do you engage in moderate to strenuous exercise (like a brisk walk)?1 day06/26/2023On average, how many minutes do you engage in exercise at this level?20 min06/26/2023Hunger Vital SignAnswerDate RecordedWithin the past 12 months, you worried that your food would run out before you got the money to buymore.Never true06/26/2023Within the past 12 months, the food you bought just didn't last and you didn't have money to get more.Never true02/07/2024PRAPARE - TransportationAnswerDate RecordedIn the past 12 months, has lack of transportation kept you from medical appointments or from getting medications?No06/26/2023In the past 12 months, has lack of transportation kept you from meetings, work, or from getting things needed for daily living?No06/26/2023Housing Stability Vital SignAnswerDate RecordedIn the last 12 months, was there a time when you were not able to pay the mortgage or rent on time?No06/26/2023In the last 12 months, how many places have you lived?In the last 12 months, was there a time when you did not have a steady place to sleep or slept in [facility] (including now)?No 06/26/2023CommentsUnknownSex and Gender InformationValueDate RecordedSex Assigned at BirthNot on fileLegal InjEawiyj34/15/2023 8:21 PM EDTGender Identity Not on fileSexual OrientationNot on filedocumented as of this encounter Functional Status * AUDIT-C ScoreAnswerDate of RylmypxfaiLwdija401/07/2024 5:35 PM Agustina, Generic * Q1: How often do you have a drink containing alcohol?AnswerDate of Assessment GyuxyzPhnyf59/07/2024 5:35 PM Agustina, Generic * Q2: How many drinks containing alcohol do you have on a typical day when you are drinking?AnswerDate of AssessmentAuthorPatient does not drink06/26/2023 5:35 PM Agustina, Generic * Q3: How often do you have six or more drinks on one occasion?AnswerDate of VibmeehrcdAmswwlGpajg60/07/2024 5:35 PM Agustina, Generic * Over the past 2 weeks, how often have you been bothered by any of the following problems?QuestionAnswerDate of AssessmentAuthorLittle interest or pleasure in doing thingsNot at all01/12/2025 10:13 AM Taniya Etienne MAFeeling down, depressed, or hopelessNot at all01/12/2025 10:13 AM AYET Taniya Groves MAPatient Health Questionnaire-2 Okwbv161 10:13 AM Taniya Etienne MA * QuestionAnswerDate of AssessmentAuthorTrouble falling or staying asleep, or sleeping too muchNot at all01/12/2025 10:13 AM Taniya Etienne MA Feeling tired or having little energyNot at all01/12/2025 10:13 AM AYET Taniya Groves MAPoor appetite or overeatingNot at all01/12/2025 10:13 AM Taniya Etienne, MAFeeling bad about yourself - or that [...] 10:13 AM Taniya Etienne MAPatient Health Questionnaire-9 Eroeg452 10:13 AM Taniya Etienne MA * How difficult have these problems made it for you to do your work, take care of things at home, or get along with other people?AnswerDate of Assessment AuthorNot difficult at all01/07/2024 10:38 AM Taniya Etienne MA * Geriatric Depression Scale (Short Version)QuestionAnswerDate of Assessment AuthorAre you basically satisfied with your life?Yes01/07/2024 10:40 AM EDT Taniya Groves MAHave you dropped many of your activities and interests? No01/07/2024 10:40 AM Taniya Etienne MADo you feel that your life is empty?No01/07/2024 10:40 AM Taniya Etienne MADo you often get bored?No 01/07/2024 10:40 AM Taniya Etienne MAAre you in good spirits most of the time?Yes01/07/2024 10:40 AM Taniya Etienne MAAre you afraid that something bad is going to happen to you?No01/07/2024 10:40 AM EDTaniya Molina MADo you feel happy most of the time?Yes01/07/2024 10:40 AM EDT Taniya Groves MADo you often feel helpless?No01/07/2024 10:40 AM EDT Taniya Groves MADo you prefer to stay at home, rather than going out and doing new things?No01/07/2024 10:40 AM Taniya Etienne MADo you feel you have more problems with memory than most?No01/07/2024 10:40 AM EDT Taniya Groves MADo you think it is wonderful to be alive now?Yes 01/07/2024 10:40 AM Taniya Etienne MADo you feel pretty worthless the way you are now?No01/07/2024 10:40 AM Taniya Etienne MADo you feel full of energy?No01/07/2024 10:40 AM Taniya Etienne MADo you feel that your situation is hopeless?No01/07/2024 10:40 AM Taniya Etienne MADo you think that most people are better off than you are?No01/07/2024 10:40 AM Taniya Etienne MAGeriatric Depression Scale (Short Version) Total1 01/07/2024 10:40 AM Taniya Etienne MA documented as of this encounter Plan of Treatment Not on file documented as of this encounter Procedures Procedure NamePriorityDate/TimeAssociated DiagnosisCommentsMM TOMOSYNTHESIS SCREENING BI05/10/2023 2:49 PM EST documented in this encounter Results * MM TOMOSYNTHESIS SCREENING BI (05/10/2023 2:49 PM EST)Anatomical Region LateralityModalityOtherSpecimen (Source)Anatomical Location / Laterality Collection Method / VolumeCollection TimeReceived Time05/10/2023 2:49 PM EST Narrative 05/10/2023 2:50 PM EST [facility] ?[address] ? [place] [address] ? Mammography Report ? Signed ? Patient: Maag,Alesha A ?MR#: [id number] ?? : 1955 ?Acct:[id number] ?? Age/Sex: 67 / F ?ADM Date: 05/10/23 ?? Loc: MAMMO ? Attending Dr: Phoenix Gannon M.D. ? Ordering Physician: Phoenix Gannon M.D. ?Results: ? Date of Service: 05/10/23 ?Follow Up: ? Procedure(s): MM tomosynthesis screening BI ?? Accession Number(s): [id number] ? cc: Phoenix Gannon M.D. ? Patient Name: ? ALESHA MAAG ? MR#: [id number] ? : 1955 ? Exam Date: 05/10/2023 ?? Ordering Doctor: DR Phoenix Gannon . ? RADIOLOGY REPORT ? PROCEDURE: ? MM TOMOSYNTHESIS SCREENING BI ? COMPARISON: ? MG MAMM SCREEN 3D NEETA CAD, 05/09/2022. ??MG MAMM SCREEN 3D NEETA ?? CAD, 05/08/2021. ??MG MAMM SCREEN NEETA W CAD, 05/03/2020. ??MG MAMM SCREEN NEETA W ?? CAD, 03/29/2017. ? INDICATIONS: ? Screening ? Calculator Name ? NCI Breast Cancer Risk Assessment Tool ?? 5 Year Breast Cancer Risk ? 1.10% ?? Lifetime Breast Cancer Risk ? 3.80% ?? Personal Breast Cancer ?No ?? Personal Ovarian Cancer ? No ?? Treatments ? None ?? Family Cancers ? Father with lung cancer at age 43; Brother with liver ?? cancer at age 65; Brother with colon/lung cancer at age 46; Brother with lung ?? cancer at age 74. ? LOCATION: ? [facility] ? BREAST COMPOSITION: ? Scattered areas fibroglandular density. ? FINDINGS: ? DIAGNOSTIC CATEGORY 1--NEGATIVE. ? RIGHT BREAST: ??No significant suspicious finding. ??No significant change has ?? occurred. ? LEFT BREAST: ??No significant suspicious finding. ??No significant change has ?? occurred. ? RECOMMENDATIONS: ? ROUTINE MAMMOGRAM AND CLINICAL EVALUATION IN 12 MONTHS. ? PLEASE NOTE: ??A NORMAL MAMMOGRAM DOES NOT EXCLUDE THE POSSIBILITY OF BREAST ?? CANCER. ??A CLINICALLY SUSPICIOUS PALPABLE LUMP SHOULD BE BIOPSIED. ? Dictated by: Bhavin Johnson M.D. on 05/10/2023 at 14:48 ? Approved by: Bhavin Johnson M.D. on 05/10/2023 at 14:49 ? Dictated By: ?Bhavin Johnson M.D. ? Signed By: ?05/10/23 1450 ? DD/ 1449 ? TD/TT: ? Academic Advisor: Procedure Note Radiology, Radiologist, MD - 05/10/[address] [address] Mammography Report Signed Patient: Alesha Bonilla AMR#: [id number] : 6Acct:[id number] Age/Sex: 67 / FADM Date: 05/10/23 Loc: MAMMO Attending Dr: Phoenix Gannon M.D. Ordering Physician: Phoenix Gannon M.D.Results: Date of Service: 05/10/23Follow Up: Procedure(s): MM tomosynthesis screening BI Accession Number(s): [id number] cc: Phoenix Gannon M.D. Patient Name: ALESHA BONILLA MR#: [id number] : 1955 Exam Date: 05/10/2023 Ordering Doctor: DR Phoenix Gannon . RADIOLOGY REPORT PROCEDURE: MM TOMOSYNTHESIS SCREENING [...] withlung cancer at age 74. LOCATION: [facility] BREAST COMPOSITION: Scattered areas fibroglandular density. [...] M.D. Signed By:05/10/23 1450 DD/ 1449 TD/TT: Academic Advisor: Authorizing ProviderResult TypeResult StatusMarc Naderer MDCLINISYNC IMAGING Final Result documented in this encounter Visit Diagnoses Not on filedocumented in this encounter Care Teams Team MemberRelationshipSpecialtyStart DateEnd Date Phoenix Gannon MD PCP - GeneralFamily Medicine Phoenix Gannon MD PCP - GeneralFamily Medicine06/18/23 Phoenix Gannon MD [address] [place] [phone] PCP - ACO Reach06/26/24 Fay Pascal NP [address] [place] [phone] Nurse PractitionerFamily Medicine09/29/24documented as of this encounter
[2025-03-19 09:56] LABS: Hematocrit 37.5 % (36.0-48.0); Hemoglobin 12.4 g/dL (12.0-16.0); Immature Granulocytes Abs Auto 0.01 10^3/uL (0.00-0.03); Immature Granulocytes Pct Auto 0.2 % (0.0-0.5); Lymphocytes Absolute Auto 0.7 10^3/uL (1.2-3.8); Mean Corpuscular HGB Conc 33.1 g/dL (29.9-35.2); Mean Corpuscular Hemoglobin 30.0 pg (26.7-34.0); Mean Corpuscular Volume 90.8 fL (81.0-99.0); Platelet Count 182 10^3/uL (150-450); Red Blood Count 4.13 10^6/uL (4.20-5.40); White Blood Count 4.5 10^3/uL (4.0-11.0)
== END 2025-03-19 09:05 | disposition home or self-care (01) ==
PROVIDERS: PCP Nurse Practitioner; Visit Provider Nurse Practitioner
DX: R79.89 Other specified abnormal findings of blood chemistry (principal)
CPT/HCPCS: 36415; 85025

== ENCOUNTER 2025-04-16 10:37 | Outpatient (OUT) | payer MEDICARE, SELFPAY ==
--- OUTSIDE RECORDS SUMMARY | 2025-04-08 05:28 | XMS_ITS | Continuity of Care Document ---
Author Organization [facility] Address [address] [place] [address] Phone Care Team Providers Care Outreach Associate Name Role Phone NON STAFF Primary Care Provider Humberto Leyva Attending Provider Fay Pascal MICROFILM MOUNTER-C Attending Provider Fay Pascal NP-C Primary Care Provider Care Teams Patient Care Team Team Status: Active Member Role/Relationship Status Dates Fay Pascal MICROFILM MOUNTER-C Primary Care Provider Active Visit Care Team Team Status: Active Member Role/Relationship Status Dates NON STAFF Primary Care Provider Active Start: March 03, 2025 Humberto Da SilvaAttending ProviderActiveStart: March 03, 2025 Visit Care Team Team Status: Active Member Role/Relationship Status Dates NON STAFF Primary Care Provider Active Start: March 19, 2025 Fay Pascal NP-CAttenportia ProviderActiveStart: March 19, 2025 Patient Care Team Team Status: Inactive Member Role/Relationship Status Dates Fay Pascal NP-C Primary Care Provider Active Start: April 08, 2025 End: April 08, 2025Fay Pascal NP-CAttenportia ProviderActiveStart: April 08, 2025 End: April 08, 2025 Chief Complaint and Reason for Visit Chief Complaint Admit Date 3M April 08, 2025 9:26am Reason for Visit Admit Date Dyslipidemia April 08, 2025 9:26am Encounter for screening mamm ogram for malignant neoplasm of breast April 08, 2025 9:26am Hypothyroidism April 08, 2025 9:26am Nonrheumatic aortic (valve) insufficienc y April 08, 2025 9:26am Nonrheumatic mitral valve regurgitation April 08, 2025 9:26am Osteoporosis, postmenopausal April 082024 9:26am Allergies, Adverse Reactions, Alerts Allergen Type Severity Reaction Last Updated Verified Status No Known Allergies Allergy Unknown April 03, 2025 1:27pmYesActive Social History Smoking Status Status Start Date End Date Date of Observa tion Ex-smoker (finding) April 03, 2021 10:44am Observation Status Observation Response Date of Response Legal Sex Female (finding) Sex Assigned At BirthFemaleFebary 1955 Family History Relationship Condition Age at Onset Recorded Date/T sarita father Malignant neoplasm of lung Unknown brotherMalignant neoplasm of lungUnknownbrotherMalignant neoplasm of liver UnknownbrotherDeceasedUnknownfatherDeceasedUnknownfamily memberDeceasedUnknown Problems Active Problems Problem Diagnosis/Recorded Date Onset Date Status C omments Basal cell carcinoma April 05, 2025 6:21pm Unknown Active Encounter for subsequent annual wellness visit (AWV) in Medicare patientNovember 2024 6:22pmUnknownActiveOSA (obstructive sleep apnea)April 05, 2025 6:25pmUnknownActiveNonrheumatic aortic (valve) insufficiencyNovember 2024 6:25pmUnknownActivePrimary osteoarthritis of right kneeJuly 2023 4:36pm UnknownActiveEncounter for screening mammogram for malignant neoplasm of breast April 05, 2025 6:22pmUnknownActiveDiverticulosisNovember 2024 6:22pm UnknownActiveDyslipidemiaNovember 2024 6:22pmUnknownActiveDeformity of right knee jointOctober 2023 9:17amUnknownActiveDyspneaSeptember 2024 8:31amUnknownActiveHeart murmurNovember 2024 6:22pmUnknownActive HypothyroidismJuly 2023 4:36pmUnknownActiveLichenification and lichen simplex chronicusNovember 2024 6:24pmUnknownActiveOsteoarthritisNovember 2024 6:25pmUnknownActiveOsteoporosis, postmenopausalNovember 2024 6:25pmUnknownActiveAbnormal CBCOctober 2024 7:59amUnknownActiveBMI 21.0- 21.9, adultNovember 2024 6:21pmUnknownActivePrediabetesNovember 2024 6:25pmUnknownActiveNonrheumatic mitral valve regurgitationNovember 2024 5:59amUnknownActiveRectal bleedingNovember 2024 6:26pmUnknownActiveRight knee painOctober 2023 8:19amUnknownActiveSCC (squamous cell carcinoma) April 05, 2025 6:26pmUnknownActiveRight hip painNovember 2024 6:26pm UnknownActiveHistory of colon polypsNovember 2024 6:22pmUnknownActive HemorrhoidNovember 2024 6:22pmUnknownActiveVitamin D deficiencyNovember 2024 6:27pmUnknownActiveInactive/Resolved Problems Problem Diagnosis/Recorded Date Onset Date Status C omments GERD (gastroesophageal reflux disease) April 03, 2021 10:42am Unknown Resolved Prob sienna List clean-up per request of Phys. EHR Cmte Abdominal pain April 03, 2021 10:43am Unknown Reso lved Problem List clean-up per request of Phys. EHR Cmte IBS (irritable bowel syndrome) April 03, 2021 10:43am Unknown Resolved Prob sienna List clean-up per request of Phys. EHR Cmte Medications Medication Status Dose Units Route Directions Qty Days Refills S tart Date Stop Date End Date Reason(s) Instructions Adherence Levothyroxine 75 mcg tablet Active 75 MCG PO Cinda y 90 1October 2024 11:00pmHypothyroidism Hypothyroidism, unspecifiedComplies with drug therapyLevothyroxine 75 mcg tablet Bpunrdbmlfbr65QAQXUWmlvkGlsdytce 2020 12:00amJuly 2023 4:35pmCalcium Carbonate-Vitamin D3 600 mg-10 mcg (400 unit) capsuleActiveCAPPONovember 2024 12:00amComplies with drug therapyLevothyroxine 88 mcg tabletDiscontinuedMCG POJuly 2023 11:00pmOctober 2024 12:48pmNitrofurantoin Monohyd/M- Cryst (Macrobid) 100 mg xwutlpcTfbwydzryxts212DIUAJbpeq 12 oeoez7776Rkgj 2023 11:00pmOctober 2023 8:44ammust administer with a meal/food Relevant Diagnostic Tests and/or Laboratory Data Laboratory Results Test Collection Date/Time Result Date/Time Result Interpretation Reference Range Result Comment Performing Site Cardiac C-Reactive Protein March 03, 2025 11:38am March 03, 2025 11:38am 0.38 mg/L 0.00-3.00Relative Risk for Future Cardiovascular Event Low <1.00 Average 1.00 - 3.00 High >3.00Performed at: [facility] [id number] Director: Quoc Pavon PhD, Phone: [phone] Factor March 03, 2025 11:38amOctober 2024 11:38am<10.0 [IU]/mL<14.0 Erythrocyte Sedimentation RateOct2024 11:38amOctober 2024 11:38am20 mm/hr<=30Basophils # (Auto)March 19, 2025 8:22amOctober 2024 8:22am0.0 10 3/uL0.0-0.1Basophils (%) (Auto)March 19, 2025 8:22amOctober 2024 8:22am0.4 %0.2-2.0Eosinophils # (Auto)March 19, 2025 8:22am March 19, 2025 8:22am0.1 10 3/uL0.0-0.7Eosinophils (%) (Auto)March 19, 2025 8:22amOctober 2024 8:22am1.8 %0.9-7.0HematocritOctober 2024 8:22amOctober 2024 8:22am37.5 %36.0-48.0HemoglobinOctober 2024 8:22amOctober 2024 8:22am12.4 g/dL12.0-16.0Immature Granulocyte # (Auto) March 19, 2025 8:22amOctober 2024 8:22am0.01 10 3/uL0.00-0.03Immature Granulocyte % (Auto)March 19, 2025 8:22amOctober 2024 8:22am0.2 % 0.0-0.5Lymphocytes # (Auto)March 19, 2025 8:22amOctober 2024 8:22am0.7 10 3/uLBelow low normal1.2-3.8Lymphocytes (%) (Auto)March 19, 2025 8:22am March 19, 2025 8:22am14.8 %Below low mzkveb49.5-60.0Mean Corpuscular HemoglobinOctober 2024 8:22amOctober 2024 8:22am30.0 pg26.7-34.0Mean Corpuscular Hemoglobin ConcentOctober 2024 8:22amOctober 2024 8:22am33.1 g/dL29.9-35.2Mean Corpuscular VolumeOctober 2024 8:22amOctober 2024 8:22am90.8 fL81.0-99.0Monocytes # (Auto)March 19, 2025 8:22am March 19, 2025 8:22am0.4 10 3/uL0.3-0.8Monocytes (%) (Auto)March 19, 2025 8:22amOctober 2024 8:22am9.6 %1.7-12.0Mean Platelet VolumeOctober 2024 8:22amOctober 2024 8:22am10.5 fL9.5-13.5Neutrophils # (Auto) March 19, 2025 8:22amOctober 2024 8:22am3.3 10 3/uL1.4-6.5Neutrophils (%) (Auto)March 19, 2025 8:22amOctober 2024 8:22am73.2 %43.0-75.0 Platelet [facility]Octt[facility] 2024 8:22amOctober 2024 8:54tt233 10 3/uL 150-450Red Blood CountOctober 2024 8:22amOctober 2024 8:22am4.13 10 6/uLBelow low normal4.20-5.40Red Cell Distribution WidthOcttaylor regional hospital 2024 8:22amOctober 2024 8:22am13.2 %11.0-15.0Corrected White Blood CountOcttaylor regional hospital 2024 8:amOctober 2024 8:22am4.5 10 3/uL4.0-11.0 Vital Signs Vital Reading Result Reference Range Collection Date/Time Height 65 [in_i] April 08, 2025 9:19vaUegmpm92.46 kgApril 08, 2025 9:37amBody Wwrunqvyqkz89.5 [degF]97.6-99.0April 08, 2025 9:37amHeart Rate60 /hwi44-591 April 08, 2025 9:37amRespiratory rate18 /fwv07-39ZlmvvtdvApril 08, 2025 9:37am Oxygen saturation by Pulse kyerpwxv97 %95-100April 08, 2025 9:37amBP Vmypdqvw370 mm[Hg]100-140April 08, 2025 9:37amBP Mohdyqsgb39 mm[Hg]60-100 April 08, 2025 9:37amBMI (Body Mass Index)23.6 kg/n1FamawzxrApril 08, 2025 9:37am Advance Directives Advance Directive Response Recorded Date/ Time Advance Directives No October 04 2:45pm Insurance Providers Guarantor Alesha Montaño Dominicbrendan Address [address] [facility] [address]Pyvdeep Info.Home Phone: Payer Group Member ID Coverage Type Subscriber Relationship to Subscriber Effective Date Expiration Date Medicare [id number] A Maag Id: [id number] [address] [facility] [address] Home Phone: Email: [email or web address] Company [id number] A Maag Id: [id number] [address] [facility] [address] Home Phone: Email: [email or web address], [facility] Retired Id: Plan [id number] A Dominicag Id: [id number] [address] [facility] [address] Home Phone: Email: [email or web address] Encounter Location(s) Arrival/Admit Date Discharge/Departure Date Discharge/Departure Disposition Provider(s) Non-patient / Non-visit -[facility] O ctober 2024 12:38pm Humberto Qureshi-patient / Mil-bmdpx-[facility] CoOctober 2024 9:22amFay Pascal NP-CDeparted Physician/Provider Office Visit- [facility] Family [facility] 10:26am Discharged to home care or self care (routine discharge)[place] Ann Recent Diagnosis Onset Date Admit Date Dyslipidemia Unknown April 08 9:26am Encounter for screening mamm ogram for malignant neoplasm of breast Unknown April 08, 2025 9:26am Hypothyroidism Unknown April 08 9:26am Nonrheumatic aortic (valve) insufficiency Unknow n April 08, 2025 9:26am Nonrheumatic mitral valve regurgitation Unknown April 08, 2025 9:26am Osteoporosis, postmenopausal Unknown Nov 2024 9:26am Assessments Diagnosis Onset Date Resolution Status Admit Date Dyslipidemia acuteApril 08, 2025 9:26amEncounter for screening mammogram for malignant neoplasm of breastacuteApril 08, 2025 9:26amHypothyroidismacuteApril 08, 2025 9:26amNonrheumatic aortic (valve) insufficiencyacuteApril 08, 2025 9:26amNonrheumatic mitral valve regurgitationacuteApril 08, 2025 9:26amOsteoporosis, postmenopausalacuteApril 08, 2025 9:26am Plan of Treatment Author Fay Pascal [facility] HospitalAuthoredApril 08, 2025 6:03amtaking calcium/vit d supplement DEXA: 09/29/2020 is on levothyroxine check labs yearly, and prn dose change, or changes in symptoms no medications recommend diet low in fat and processed foods due for mammogram reviewed cardiology notes [facility], had recent AGA as well plan for cath and valve repairs recent AGA [facility] Cardiology plan for cath and repairs for valves Future Tests Future scheduled test information is unavailable Pending Tests Test Name Ordered Date Scheduled Date XR dexa axial skeleton April 08, 2025 6:00a m MM screening mammo BI w/CADApril 08, 2025 5:56am Future Visits Future appointment information is unavailable Future Procedures Future procedure information is unavailable Future Medications Future medication information is unavailable Patient Instructions Patient instructions are unavailable
--- OUTSIDE RECORDS SUMMARY | 2025-04-16 10:41 | XMS_ITS | Clinical Summary ---
Author Organization [facility] Address [address] [place] [address] Care Team Providers Care Palm Gatherer Name Role Phone Phoenix Gannon MD Primary Care Provider [phone] Allergies No known active allergies Medications MedicationSigDispense [...] RecordedNational Score (1-100), lower number is lower [id number] Score (1-10), lower number is lower riskNot on file3Data from: https://www.neighborhoodatlas.medicine.[facility].edu/. Last address used for [id number] [facility]07/30/2022CommentsUnknownSex and Gender InformationValueDate RecordedSex Assigned at BirthNot on fileLegal SexFemale 04/20/2012 10:02 AM ESTGender IdentityNot on fileSexual OrientationNot on file Last Filed Vital Signs Vital SignReadingTime TakenCommentsBlood Nrjkeaxn476/59007/30/2022 9:36 AM EDT Nfbco8823 9:36 AM PKTYxrzrolksfl05.6 ??C (97.8 ??F)07/30/2022 9:36 AM EDTRespiratory Rate--Oxygen Lsgvfrevhg18%07/30/2022 9:36 AM EDTInhaled Oxygen Concentration--Timzrr00.8 kg (145 lb)07/30/2022 9:36 AM YXFWmxbou559.6 cm (5' 6 )07/30/2022 9:36 AM EDTBody Mass Index23. 9:36 AM EDT Plan of Treatment Health MaintenanceDue DateLast DoneCommentsAnxiety Storiuwpq00/28/1974Depression Gdyslvyzw51/28/1974Hepatitis C Tbkgqavqw59/28/1974DTaP,Tdap,Td Vaccine (1 - Tdap)1974Mammogram Dbhfuoumj29/28/1996CT Biszpxxbwxqh44/28/2001Cologuard (FIT-DNA)07/17/20007048Gzesnhxupgb44/28/2001Colorectal Cancer Acmhxboqx99/28/2001 Fecal Occult Blood2000Lipid Flozzsqdu48/28/4481Jcrqujswxhize49/28/2001 Shingrix Vaccine (1 of 2)2005Medicare Annual Wellness Visit06/20/2020one Density Xdlmhvxde51/28/2021Diabetes Imjlomjqi98dvance Directive Vhttxsjiut71/01/2025Covid-19 Vaccine ( - 2024- season)2025 Influenza Vaccine (#1)2025RSV Vaccine (1 - 1-dose 75+ series)2030 Pneumococcal Vaccine: 50+Daeuhevfb78/11/2022, 07/15/2014, 08/18/2009 Insurance Care Teams Team MemberRelationshipSpecialtyStart DateEnd Date Phoenix Gannon MD [address] [place] [address] PCP - GeneralFamily Medicine07/26/22
--- OUTSIDE RECORDS SUMMARY | 2025-04-16 10:41 | XMS_ITS | Clinical Summary ---
Author Organization [facility] Address [address] [place] [address] Care Team Providers Care Roll Up Helper Name Role Phone Phoenix Gannon MD Primary Care Provider [phone] Phoenix Gannon MD Unavailable Fay Pascal PRESS LEADER Unavailable [phone] Allergies No known active allergies Medications MedicationSigDispense QuantityRefillsLast FilledStart DateEnd DateStatus Calcium Citrate-Vitamin D (Yovanny-Citrate Plus Vitamin D) 250-2.5 MG-MCG tablet Take 1 tablet by mouth in the morning and 1 tablet in the evening.Active levothyroxine (Synthroid, Levoxyl) 75 MCG tablet Indications:Hypothyroidism, adultTake 1 tablet (75 mcg) by mouth in the morning. Take before meals. 90 tablet 5Active Active Problems ProblemNoted DateDiagnosed DateNonrheumatic aortic valve vpmgyhrompagg39/26/2025 Assessment & Plan (01/12/2025 11:03 AM EDT): ECHO Obstructive sleep apnea mbsxisjp76/20/2024 Assessment & Plan (01/12/2025 6:20 AM EDT): [...] EDT): Non compliant with PAP use Lactose tfiixxcpxbn05/20/2024IBS (irritable bowel syndrome)01/07/2024History of colon rsmzzg2201/07/20245292Ahxzbhfyoj62/20/4905Bbysbtdwnekdpx36/20/2024bdominal pain 01/07/2024Encounter for screening mammogram for malignant [...] liver4Right hip pain06/27/2023rimary osteoarthritis of right knee06/27/2023Osteoporosis, shzulgrmwidvym01/08/2024 Assessment & Plan (01/12/2025 6:25 AM EDT): No DEXA on file, I do recommend DEXA scan Does take calcium/vit d supplement Rmqiwnidsjddai43/08/2024Vitamin D kidzbhljtw12/08/2024 Assessment & Plan (01/12/2025 6:24 AM EDT): Takes calcium/vit d supplement Ivjtnhqfhhn71/08/2024Hypothyroidism, adult06/27/2023 Assessment & Plan (01/12/2025 6:26 AM [...] dose to 75mcg Lichenification and lichen simplex eeoeainpg53/08/2194Larxornqirxz98/08/2024 Assessment & Plan (01/12/2025 6:21 AM EDT): Hx of this per lab finding, no statin use Recommend low fat diet SCC (squamous cell carcinoma)06/27/2023asal cell /08/2024MI 21.0- 21.9, adult4Rectal /08/2024 Overview (08/01/2023): Colonoscopy 07/31/23: mild diverticulosis Assessment [...] her see general surgeon for evaluation Heart qgsifp6706/27/2023 Overview (02/19/2024): ECHO: 01/2024 mild regurg TV [...] Problems ProblemNoted DateDiagnosed DateResolved DateGastroesophageal reflux disease Immunizations ImmunizationAdministration DatesNext DuePneumococcal Conjugate PCV 13007/15/2014 Pneumococcal Conjugate PCV 2Pneumococcal Polysaccharide PPSV23 08/18/2009 Family History Medical HistoryRelationNameCommentsColon [...] or relatives?More than three times a week06/26/2023ttends Mu-Ism ServicesNot on file06/26/2023o you belong to any clubs or organizations such as mormonism groups, unions, fraternal or athletic groups, or school groups?No06/26/2023How often do you attend meetings of the clubs or organizations you belong to?Never06/26/2023re you , , , , never , or living with a partner?Szqpkqd5706/26/2023UDIT-C AnswerDate RecordedQ1: How often do you have [...] hard at all06/26/2023 PHQ-2AnswerDate RecordedPatient Health Questionnaire-2 Suvqh064Finjordan [facility] [place] [facility] Occupational [facility] - Occupational Stress QuestionnaireAnswerDate RecordedDo you feel stress - tense, restless, nervous, or anxious, or unable to sleep at night because yourmind is troubled all the time - these days?To some heygzw5406/26/2023Exercise Vital SignAnswerDate RecordedOn average, how many days [...] steady place to sleep or slept in [facility] (including now)?No06/26/2023CommentsUnknownSex and Gender InformationValueDate RecordedSex Assigned at BirthNot on fileLegal SexFemale 08/01/2022 8:21 PM EDTGender IdentityNot on fileSexual OrientationNot on file Last Filed Vital Signs Vital SignReadingTime TakenCommentsBlood Ktpebpor35/6608 10:06 AM EDT Adxif5778 10:06 AM CWZRiykxhrnshu53.7 ??C (98.1 ??F)01/12/2025 10:06 AM EDTRespiratory Azzy340701/12/2025 10:06 AM EDTOxygen Debjcaahks30%01/12/2025 10:06 AM EDTInhaled Oxygen Concentration--Fjodvu07.1 kg (137 lb)01/12/2025 10:06 AM ZMQGjepqw153.6 cm (5' 6 )09/29/2024 9:14 AM EDTBody Mass Index22.11009/29/2024 9:14 AM EDT Plan of Treatment Health MaintenanceDue DateLast DoneCommentsCT Rxwaucszfpui34/28/1956FIT-DNA 1955FIT1955FOBT1955 9962Keyobwnoabtvk61/28/1956OVID-19 Vaccine ( season)01/18/20250028Znujkhuwo62, 05/10/2023, 05/10/2023, Additional history existsMedicare Annual Wellness (AWV)01/12/2026 01/12/2025, 01/07/2024, 01/07/2024, Additional history existsColonoscopy , 04/03/2021, 04/03/2021olorectal Cancer Screening 4Pneumococcal Vaccine: 65+ NefzyHhjmqhhqm76/11/2022, 07/15/2014, 08/18/2009Influenza VaccineDiscontinued Procedures Procedure NamePriorityDate/TimeAssociated DiagnosisCommentsMM TOMOSYNTHESIS SCREENING BI05/11/2024 2:21 PM EST from Last 3 Months or Most Recently Relevant to Health Maintenance Results * MM TOMOSYNTHESIS SCREENING BI (05/11/2024 2:21 PM EST)Anatomical Region LateralityModalityOtherSpecimen (Source)Anatomical Location / Laterality Collection Method / VolumeCollection TimeReceived Time05/11/2024 2:21 PM EST Narrative 05/11/2024 2:22 PM EST [facility] ?[address] ? [place] [address] ? Mammography Report ? Signed ? Patient: MAAG,ALESHA A ?MR#: [id number] ?? : 1955 ?Acct:[id number] ?? Age/Sex: 68 / F ?ADM Date: 12/23/24 ?? Loc: MAMMO ? Attending Dr: Fay J Aichholz PRESS LEADER ? Ordering Physician: Aichholz,Fay PRESS LEADER ?Results: ? Date of Service: 05/11/24 ?Follow Up: ? Procedure(s): MM tomosynthesis screening BI ?? Accession Number(s): [id number] ? cc: Fay Pascal PRESS LEADER ? Patient Name: ? ALESHA MAAG ? MR#: [id number] ? : 1955 ? Exam Date: 05/11/2024 [...] at age 74. ? LOCATION: ? [facility] ? BREAST COMPOSITION: ? There are scattered [...] 1422 ? DD/ 1421 ? TD/TT: ? Stock Checker: Procedure Note Radiology, Radiologist, MD - 05/11/2024 [place] [address] Mammography Report Signed Patient: ALESHA BONILLA AMR#: [id number] : 1955cct:[id number] Age/Sex: 68 / FADM Date: 05/11/24 Loc: MAMMO Attending Dr: Fay Pascal NP Ordering Physician: Fay Pascalesults: Date of Service: 05/11/24Follow Up: Procedure(s): MM tomosynthesis screening BI Accession Number(s): [id number] cc: Fay Pascal NP Patient Name: ALESHA BONILLA MR#: [id number] : 1955 Exam Date: 05/11/2024 Ordering Doctor: YAJAIRA Pascal OLIVE GRADER RADIOLOGY REPORT PROCEDURE: MM TOMOSYNTHESIS SCREENING BI COMPARISON: MM TOMOSYNTHESIS SCREENING BI, 05/10/2023. MG MAMM HDJGUX2P NEETA CAD, 05/09/2022. INDICATIONS: Screening Calculator Name [...] withlung cancer at age 74. LOCATION: [facility] BREAST COMPOSITION: There are scattered areas of [...] Lange M.D. Signed By:05/11/241421 DD/ 20 TD/TT: Stock Checker: Authorizing ProviderResult TypeResult StatusLisa Aichholz NPCLINISYNC IMAGING Final Result from Last 3 Months or Most Recently Relevant to Health Maintenance Insurance Care Teams Team MemberRelationshipSpecialtyStart DateEnd Date Phoenix Gannon MD PCP - GeneralFamily Medicine06/18/23 Phoenix Gannon MD [address] [place] [phone] PCP - O [facility]06/26/24 Fay Pascal NP [address] [place] [phone] Nurse PractitionerDodge County Hospital09/29/24
--- OUTSIDE RECORDS SUMMARY | 2025-04-16 10:42 | XMS_ITS | CCD ---
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 Name Role Phone Kelsey Pop Unavailable Fabiola Panda Unavailable Panda Santos Unavailable PASCUAL, DR PHOENIX [...] Unavailable Pascual, Phoenix Montaño Primary Care Provider [phone] LORRAINE MCKINLEY Attending Unavailable PHOENIX GARNER Primary Care Unavailable Phoenix Garner MD Primary Care Provider FAY PASCAL Primary Care Physician Jose M MADRID Attending Unavailable FAY PASCAL Referring Unavailable Jose M MADRID Attending Unavailable FLORINA Wade Attending Provider MD Bright Mccall II Attending Provider Phoeinx Garner Primary Care Unavailable Fay Pascal Admitting Unavailable Fay Pascal Attending Unavailable Christiane Wade Admitting Unavailjessy e Christiane Wade Attending Unavailjessy e NON STAFF Primary Care Unavailable Bright Mccall II Admitting Unavailabl e Bright Mccall II Attending Unavailjessy Pascal APRN - STUCCO PLASTERERFay Primary Care Provide r Phoenix Garner MD Unavailable FAY PASCAL Primary Care Unavailable CHRISTY, JUSTEEN Referring Unavailable CHRISTY, JUSTEEN Referring Unavailable FAY PASCAL Primary Care Unavailable Naida BROCK, Fay Unavailable MELYSSA DICKERSON Attending Unavailable FAY PASCAL Attending Unavailable FAY PASCAL Attending Unavailable Phoenix Garner MD Primary Care Provider [phone] Phoenix Garner MD Unavailable Naida BROCK, Fay Unavailable Phoenix Garner MD Primary Care Provider LELAND RICHARDSON Referring Unavailable LELAND RICHARDSON Attending Unavailable LELAND RICHARDSON Attending Unavailable CHAIM JEWELL Attending Unavailable Allergies Allergy ClassificationReported Allergen(s)Allergy TypeDate of OnsetReaction(s) Facility (1 source)No Known Medication Allergies; Translations: [No Known Medication Allergies]Propensity to adverse reactions (disorder)[facility] Repository Medications Current Medications MedicationDrug Class(es)DatesSig (Normalized)Sig (Original)alendronic acid 70 mg oral tablet (7 sources)Bisphosphonate End: 68-21-3302duzh 1 tablet by mouth in the morningalendronate (Fosamax) 70 MG tablet Take 70 mg by mouth every 7 (seven) days Take in the morning with a full glass of water, on an empty stomach, and do not take anything else by mouth or lie down forthe next 30 min. 01/07/2024 Discontinued (Therapy completed)ascorbic acid 1000 mg oral tablet (7 sources)Vitamin C End: 37-58-4082buic 1 tablet by mouth in the morningAscorbic Acid (vitamin C) 1000 MG tablet Take 1,000 mg by mouth in the morning. 01/07/2024 Discontinued (Therapy completed)atorvastatin 20 mg oral tablet (7 sources)HMG-CoA Reductase Inhibitor End: 00-24-2084hydn 1 tablet by mouth in the morningatorvastatin (Lipitor) 20 MG tablet Take 20 mg by mouth in the morning. 01/07/2024 Discontinued (Therapy completed)Calcium Carb-Cholecalciferol (CALCIUM 500 + D PO) (7 sources) End: 06-83-4337ifmd 2 tablets by mouth once daily in [...] oral tablet (6 sources)Vitamin DStart: 01-07-2024 End: 50-25-1159upnv 1 tablet by mouth once in the [...] every week ergocalciferol (Vitamin D-2) 1.25 MG (32654 UT) capsule Take 1.25 mg by mouth 1 (one) time per week0 Activefluconazole 150 mg oral tablet (1 source)Azole AntifungalStart: 09-10-2024 End: 49-89-6610binkwgdktqu (DIFLUCAN) 150 MG tablet Indications: Vaginal discharge Take 1 tablet by mouth every 72hours for 6 days 2 tablet 09/10/2024 09/16/2024 Activelevothyroxine sodium 0.075 mg oral tablet (20 sources)l-ThyroxineStart: 12-09-2024 End: 08-47-9454xefm 1 tablet by mouth before mealtimelevothyroxine (Synthroid, Levoxyl) 75 MCG tablet Indications: Hypothyroidism, adult Take 1 tablet (75 mcg) by mouth in the morning. Take before meals. 90 tablet 01/12/2025 04/12/2025 ActiveStart: 04-23-2024 End: 52-65-2635dbrv 1 tablet by mouth before mealtimelevothyroxine (Synthroid) 88 MCG tablet Indications: Hypothyroidism, adult (CMS/HCC) Take 1 tablet (88 mcg) by mouth in the morning. Take before meals. 90 tablet 04/23/2024 06/09/2024 Discontinued (Therapy completed)Start: 02-19-2024 End: 45-19-2447rybd 1 tablet by mouth before mealtimelevothyroxine (Synthroid) 75 MCG tablet Indications: Hypothyroidism, adult (CMS/HCC) Take 1 tablet (75 mcg) by mouth in the morning. Take before meals. 90 tablet 08/27/2024 11/25/2024 ActiveStart: 01-07-2024 End: 03-50-2074hqhu 1 tablet by mouth before mealtimelevothyroxine (Synthroid) 100 MCG tablet Indications: Hypothyroidism, adult (CMS/HCC) Take 1 tablet(100 mcg) by mouth in the morning. Take before meals. 90 tablet 01/07/2024 02/19/2024 Discontinued (Therapy completed)Start: 40-53-7021Wgpxopaberuka Active MCG PO December 03, 2023 12:00amStart: 11-26-2023 End: 32-60-5325wzxj 1 tablet by mouth before mealtimelevothyroxine (Synthroid) 88 MCG tablet Indications: Hypothyroidism, adult (CMS/HCC) Take 1 tablet (88 mcg) by mouth in the morning. Take before meals. 30 tablet 1 11/26/2023 01/07/2024 Discontinued (Therapy completed)Start: 90-71-9630dzsa 1 tablet by mouth once dailySynthroid 100 mcg Tab 100 mcg = 1 tab(s), Oral, Daily, Refills(s) 0 Start Date: 07/05/23 Status: OrderedStart: 04-03-2021 End: 80-21-5299nwke 75 ug by mouth once dailyLevothyroxine Discontinued [...] oral capsule (7 sources)Proton Pump Inhibitor End: 10-14-8353tpro 1 capsule by mouth before mealtimeomeprazole (PriLOSEC) [...] Comment on above:Take by mouth.hyaluronate (2 sources)Start: 72-28-0144Vey-One September, 3 mLnitrofurantoin, macrocrystals 25 mg / nitrofurantoin, monohydrate 75 mg oral capsule (4 sources)Nitrofuran AntibacterialStart: 12-03-2023 End: 23-12-3081pkem 1 capsule by mouth every twelve hours at mealtime Nitrofurantoin Monohyd/M-Cryst (Macrobid) 100 mg capsule Discontinued 100 MG PO Every 12 hours 10 5July 2023 12:00am March 19, 2024 9:44am must administer with a meal/foodpredniSONE 20 mg oral tablet (4 sources)Start: 04-00-4702pxfa 1 tablet by mouth every twenty-four hours predniSONE 20 MG 1 tablet Orally Once a day for 14 days Apr, Not-Taking sucralfate 1000 mg oral tablet (5 sources)Aluminum ComplexStart: 26-73-0840thpz 1 tablet by mouth every eight hoursSucralfate 1 GM 1 TABLET Orally THREE TIMES A DAY for 30 day(s) Mar, Not-TakingSuprep Bowel Prep Kit 17.5-3.13-1.6 GM/180ML (7 sources)Start: 63-79-5795Oceorn Bowel Prep Kit 17.5-3.13-1.6 GM/180ML 177 ML DIRECTED AT 4 PM AND 11 PM Orally Twice a day for 1 day(s) September, Not-TakingTriamcinolone (4 sources)CorticosteroidStart: 48-78-0936Rlfaawx -40 mg Feb, 40 mg Start: 55-60-4700Zvxdhri -40 mg September, 40 mgVitamin D 50,000 intl units (1.25 mg) oral capsule (1 source)Start: 82-55-3955psrn 1 capsule by mouth every weekVitamin D 50,000 intl units (1.25 mg) oral capsule 50,000 International_Unit = 1 cap(s), Oral, qWeek, Refills(s) 0 Start Date: 07/05/23 Status: Ordered Problems Active Problems Problem ClassificationProblemDateDocumented DateEpisodic/ChronicCardiac dysrhythmias (2 sources)Palpitations; Translations: [Palpitations]Onset: 41-34-4211Zraymlwg Disorders of lipid metabolism (20 sources)Hyperlipidemia, unspecified; Translations: [Dyslipidemia]Onset: 190180-75-3721BzdxepsBftmeasjhammdo and diverticulitis (20 sources)Diverticular disease; Translations: [Diverticulosis of intestine, part unspecified, without perforation or abscess without bleeding]Onset: 176075-81-3413DmhjjctJgolf valve disorders (14 sources)Aortic incompetence, non-rheumatic ; Translations: [Nonrheumatic aortic (valve) insufficiency]Onset: 742665-97-4034OmnajyqNejhiec (1 source)Onychomycosis due to dermatophyte ; Translations: [Tinea unguium] 45-15-7524SsagznvnJjlfequdnfk deficiencies (20 sources)Vitamin D deficiency, unspecified; Translations: [Vitamin D deficiency]Onset: 32-37-4815VqblunxPlqdpwwfzcbpma (20 sources)Osteoarthritis of right knee joint; Translations: [Unilateral primary osteoarthritis, right knee]Onset: 776025-85-6779Efrrrvo Osteoporosis (20 sources)Postmenopausal osteoporosis; Translations: [Age-related osteoporosis without current pathological fracture]Onset: 509389-85-8113PzjtpepWhepv acquired deformities (1 source)Deformity of knee joint; Translations: [Unspecified acquired deformity of right lower leg]71-47-8954GtcmkicjGhepm acquired deformities (1 source)Unspecified acquired deformity of right lower leg; Translations: [Other acquired deformities of knee]12-76-0864TjtxmspaWesog connective tissue disease (2 sources)Pain in toe; Translations: [Pain in left toe(s)]26-55-5817Uqvjhlbe Other female genital disorders (2 sources)Vaginal discharge; Translations: [Other specified noninflammatory disorders of vagina]31-38-0482YgzoqvgqJdluo female genital disorders (1 source)Other specified noninflammatory disorders of vagina; Translations: [Other specified noninflammatorydisorders of vagina]Onset: 53-69-0246Wvtvsccq Other gastrointestinal disorders (20 sources)Irritable bowel syndrome; Translations: [Mixed irritable bowel syndrome]Onset: 787588-93-1073HzjinjxTysxp gastrointestinal disorders (5 sources)Irritable bowel syndrome with diarrhea; Translations: [Irritable bowel syndrome with diarrhea]34-52-7737LonybutBovxy gastrointestinal disorders (2 sources)Irritable bowel syndrome with diarrheaOnset: 06-15-2021 Resolved: 27-82-4058JanvjmjPeivp gastrointestinal disorders (1 source)Mixed irritable bowel syndromeOnset: 10-10-2021 Resolved: 29-73-9218RrnsrnrHdwtv gastrointestinal disorders (1 source)Rectal discharge; Translations: [Other specified symptoms and signs involving the digestive system and abdomen]EpisodicOther liver diseases (20 sources)Lesion of liver; Translations: [Liver disease, unspecified]Onset: 200364-79-9596JlsgtevKvmyo liver diseases (1 source)Liver disease, unspecifiedOnset: 06-20-2021 Resolved: 53-40-0777KagmgytFkunr liver diseases (1 source)Other specified diseases of liver; Translations: [Other specified diseases of liver]Onset: 19-08-3113WzyawfoJytrx nervous system disorders (1 source)Difficulty walking; Translations: [Difficulty in walking, not elsewhere classified]58-97-7623BknvvphBpiay non-traumatic joint disorders (3 sources)Pain in right knee; Translations: [Right knee pain]Onset: 03-19-2024 32-46-2396HqorzdbzIqyig nutritional; endocrine; and metabolic disorders (20 sources)Intolerance to lactose; Translations: [Lactose intolerance, unspecified]Onset: 484279-68-3178FyzzojnKjorf nutritional; endocrine; and metabolic disorders (1 source)Lactose intolerance, unspecifiedOnset: 10-10-2021 Resolved: 74-10-8495AhcjfxdOpilb skin disorders (1 source)Dystrophia unguium; Translations: [Nail dystrophy]48-40-7930Hthqqqui Residual codes; unclassified (1 source)Sleep apnea; Translations: [Sleep apnea, unspecified]ChronicResidual codes; unclassified (1 source)Daytime somnolence; Translations: [Other hypersomnia]ChronicResidual codes; unclassified (20 sources)Obstructive sleep apnea syndrome; Translations: [Obstructive sleep apnea (adult) (pediatric)]Onset: 106480-70-4617BgluuoaIuqhxben codes; unclassified (1 source)Other hypersomniaOnset: 10-10-2021 Resolved: 67-92-1160ZjoywskEwcboeok codes; unclassified (1 source)Obstructive sleep apnea (adult) (pediatric)Onset: 10-10-2021 Resolved: 92-85-7012OgwzeotQyjvjtjo codes; unclassified (1 source)Family history of malignant neoplasm of digestive organs; Translations: [FAM HX MALIG NEOPLASM DIGESTIV ORGN]Onset: 94-45-6039Naolliaa Residual codes; unclassified (1 source)Family history of malignant neoplasm of trachea, bronchus and lung; Translations: [FAM HX MALIG NEOPLSM TRACH BRON LNG]Onset: 19-01-8522Ucuwuxjs Residual codes; unclassified (1 source)Family history of malignant neoplasm of other organs or systems; Translations: [FAM HX MALIG NEOPLASM OTH ORGN/SYS]Onset: 81-81-8049Zfmiqrkc Thyroid disorders (20 sources)Acquired hypothyroidism; Translations: [Hypothyroidism, unspecified] Onset: 05-31-2021 Resolved: 40-98-0825QpjssjlMqiknhjhrixv (1 source)Body mass index 20-24 - yirukv84-79-6662 Past or Other Problems Problem ClassificationProblemDateDocumented DateEpisodic/ChronicAbdominal hernia (1 source)Ventral hernia without obstruction or gangreneOnset: 06-15-2021 Resolved: 29-79-8205YkijiwmlAcmrsqezu pain (20 sources)Unspecified abdominal pain; Translations: [Abdominal pain]Onset: 03-20-2021 Resolved: 14-00-2173UkezcvonImzhatfg mellitus without complication (20 sources)Prediabetes; Translations: [Prediabetes]Onset: 136125-74-7418 EpisodicEsophageal disorders (20 sources)Gastroesophageal reflux disease; Translations: [Gastro-esophageal reflux disease without esophagitis]Onset: 06-15-2021 Resolved: 91-67-5847NjwxnnmRplqukcodtfrgpmf hemorrhage (20 sources)Rectal hemorrhage; Translations: [Hemorrhage of anus and rectum] Onset: 135020-34-7429AahdppnfCjlpjkpebpiwd symptoms and ill-defined conditions (3 sources)Dysuria; Translations: [Dysuria]Onset: 800222-46-9466Odvxrwqk Heart valve disorders (20 sources)Heart murmur; Translations: [Cardiac murmur, unspecified]Onset: 290374-04-1778RdsdbpiwDpqisyxogsk (20 sources)Hemorrhoids; Translations: [Unspecified hemorrhoids]Onset: 096108-31-8520WrbnodnkLvwztjnxkmcix mental health disorders (3 sources)Psychophysiologic insomnia; Translations: [Psychophysiologic insomnia]Onset: 10-10-2021 Resolved: 69-83-2257WevmizvLdol disorders (20 sources)Mood disordersOnset: 01-07-2024 Resolved: Other aftercare (1 source)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; Translations: [OTH FOREPART ROUNDER CURRENT DRUG THERAPY]Onset: 62-42-0590KjgmcsadWtjoo and unspecified benign neoplasm (1 source)Hemangioma of intra-abdominal structuresOnset: 07-18-2021 Resolved: 75-07-7435CqxpsopkBxxuv and unspecified benign neoplasm (20 sources)History of polyp of colon; Translations: [History of colon polyps] Onset: 494454-91-2243DakqrppkNsump connective tissue disease (1 source)Trochanteric bursitis, left hip; Translations: [Trochanteric bursitis, left hip M70.62]Onset: 02-23-2021 Resolved: 26-02-2723YgynicnaFuwac gastrointestinal disorders (2 sources)Diarrhea, unspecified; Translations: [Diarrhea R19.7]Onset: 03-20-2021 Resolved: 19-32-4411XumwsjxhAuimc inflammatory condition of skin (20 sources)Lichen simplex chronicus; Translations: [Lichen simplex chronicus] Onset: 460702-95-0841PflofuxqAdsvb non-epithelial cancer of skin (20 sources)Squamous cell carcinoma of skin; Translations: [Squamous cell carcinoma of skin, unspecified]Onset: 725533-58-4055AedxxpduUbdbl non- traumatic joint disorders (1 source)Pain in left hip; Translations: [Left hip pain M25.552]Onset: 02-23-2021 Resolved: 26-16-9195IpyknplbFwncm non-traumatic joint disorders (7 sources)Pain in right hip joint; Translations: [Pain in right hip]Onset: 926201-69-6771LmmvxczzLrozf non-traumatic joint disorders (19 sources)Hip pain; Translations: [Pain in right hip]Onset: 06-27-2023 48-39-3858CbuhnedkHyqbw nutritional; endocrine; and metabolic disorders (1 source)Abnormal weight lossOnset: 04-10-2021 Resolved: 87-41-5135YdcgbgqsOonxs screening for suspected conditions (not mental disorders or infectious disease) (20 sources)Encounter for screening mammogram for malignant neoplasm of breast; Translations: [Patient encounter status]Onset: 34-93-4775ClghvylxLlmgbjuy codes; unclassified (20 sources)Body mass index 20-24 - normal; Translations: [Body mass index (BMI) 21.0-21.9, adult]Onset: 080604-16-5119Wmayldgm Results Test NameValueInterpretationReference RangeFacilityOffice Visiton 03-29-2025 Follow-up [id number] Alesha Bonilla 1955 F Date Provider Department Center 03/29/2025 245-LELAND RICHARDSON CARD [facility] Family History Problem Relation Age of Onset Hypertension Mother Lung cancer Father Other Sister Liver disease Brother Liver disease Brother Liver disease Brother Family Status - Relation Status Age at Mother Alive Father Sister Alive Sister Alive Sister Alive Brother Brother Brother Level of Service:68910 CO OFFICE/OUTPATIENT ESTABLISHED HIGH MDM 40 MIN Reason for Visit and Comments: Follow-up [620416] - Patient is here today for a follow up appointment . Patient recently had AGA. Patient denies chest pain, SOB/LYNCH, edema, dizziness/lightheaded Valve Disorder [3372] - Non-rheumatic aortic valve insufficiency Palpitations [999993] - Palpitations/racing heart 1 time since [facility]Av[facility] Galion HospitalANESon 32-93-8674YWZV Attestation signed by Antionette Stafford MD at 03/31/2025 10:32 AM By using the attestations below, the signing clinician agrees that I have read and verify that the documentation has been personally reviewed by me and ensure that the documentation accurately reflects the encounter. GC: I personally saw this patient on the day of the encounter with Dr. Santa, performed the mars portion(s) of the service and participated in the management and confirm the resident's documentation. Please note there may be an additional personal documentation from me. Patient: Alesha Bonilla Procedure Information Date/Time: 03/25/25 1030 Procedure: TRANSESOPHAGEAL ECHO (AGA) Location: [facility] V[facility] Lab Clinical information reviewed: adRise Meds OB Status Physical Exam Airway Mallampati: II TM distance: <3 FB Cardiovascular Rhythm: regular Rate: normal (+) murmur Dental Pulmonary Breath sounds clear to auscultation Neurological Abdominal Anesthesia Plan ASA 2 Additional Equipment RequestsNormalUniversity of Metropolitan Methodist HospitalHPon [id number] Attestation signed by Antionette Stafford MD at 03/31/2025 10:30 AM By using the attestations below, the signing clinician agrees that I have read and verify that the documentation has been personally reviewed by me and ensure that the documentation accurately reflects the encounter. GC: I personally saw this patient on the day of the encounter, performed the mars portion(s) of the service and participated in the management and confirm the resident's documentation. Please note there may be an additional personal documentation from me. H&P reviewed. The patient was examined and there are no changes to the H&P. 69 year old female with known moderate mitral regurgitation and aortic insufficiency. Plan to proceed with transesophageal echocardiography for closer valvular assessment. Risks and benefits of procedure discussed in detail, Ms Bonilla is agreeable to proceed. On evaluation pre procedure, denies chest pain, palpitations, nausea, diaphoresis, dyspnea.[facility] HospitalNURSNOTEon 69-81-8003ZOSZNJXQRenkqaf swallow study completed and passed. [facility] HospitalNURSNOTERN educated pt on d/c instructions. This included: site care, limited physical activity, resume normal diet, future appointments, medications, and moderate sedation instructions. RN educated pt on when to notify physician and when to go to the hospital. RN encouraged pt to voice any questions or concerns, and answered any questions or concerns if pt verbalized. Pt was wheeled off of unit with all of belongings.[facility] HospitalTelephoneon [id number] Alesha Bonilla 1955 F Date Provider Department Center 03/17/2025 DEVYN BACK [facility] Family History Problem Relation Age of Onset Hypertension Mother Lung cancer Father Other Sister Liver disease Brother Liver disease Brother Liver disease Brother Family Status - Relation Status Age at Mother Alive Father Sister Alive Sister Alive Sister Alive Brother Brother Brother DeceasedNormalUniversKindred Healthcareon 24-46-3256QLYhreekbggz Patient ID: Alesha Bonilla is a 69 [...] in about 4 weeks (around 03/31/2025) for Recheck.[facility] HospitalOffice Visiton 84-37-1751Ozctwa-up [id number] Alesha Bonilla 1955 Date Provider Department Center 03/03/2025 245-LELAND RICHARDSON MICHAEL Don Family History Problem Relation Age of Onset Hypertension Mother Lung cancer Father Other Sister Liver disease Brother Liver disease Brother Liver disease Brother Family Status - Relation Status Age at Mother Alive Father Sister Alive Sister Alive Sister Alive Brother Brother Brother Level of Service:18355 CO OFFICE/OUTPATIENT NEW MODERATE MDM 45 MINUTES Reason [...] and how it effects the heartNormalUniversity of Metropolitan Methodist HospitalOrders Onlyon 45-16-6194Oujjih [id number] Alesha Bonilla 1955 Date Provider Department Center 03/02/2025 [id number], HISTORICAL MICHAEL Don Family History Problem Relation Age of Onset Hypertension Mother Lung cancer Father Other Sister Liver disease Brother Liver disease Brother Liver disease Brother Family Status - Relation Status Age at Mother Alive Father Sister Alive Sister Alive Sister Alive Brother Brother Brother DeceasedNormalUniversity of Metropolitan Methodist HospitalALL CBC WITH AUTO DIFFon 98-93-4454YMSYJERRU ABSOLUTE ENIN3BMNI HealthcareBasophils/100 WBC (Bld)0.6 %0.2 - 2.0 %NOMS HealthcareEosinophils/100 WBC (Bld)1.2 %0.9 - 7.0 %NOMS HealthcareErythrocyte distribution width (RBC) [Ratio]13 %11.0 - 15.0 %NOMS HealthcareHematocrit (Bld) [Volume fraction]35.9 % Low36.0 - 48.0 %NOM HealthcareHemoglobin (Bld) [Mass/Vol]12 g/dL12.0 - 16.0 g/dLNOVT HealthcareIMMATURE GRANULOCYTES ABS AUTO0.02NOMS HealthcareImmature granulocytes/100 WBC (Bld)0.4 %0.0 - 0.5 %NOM HealthcareInterpretation and review of laboratory resultsAbnormalNOVT HealthcareLYMPHOCYTES ABSOLUTE AUTO0.8 LowNOMS HealthcareLymphocytes/100 WBC (Bld)14.6 %Low20.5 - 60.0 %[facility]OMMober[facility] MCH (RBC) [Entitic mass]30.1 pg26.7 - 34.0 pgNOCox NorthMCHC (RBC) [Mass/Vol]33.4 g/dL29.9 - 35.2 g/dLNOCox NorthMCV (RBC) [Entitic vol]90 fL 81.0 - 99.0 fLNOVT HealthcareMONOCYTES ABSOLUTE AUTO0.4NOMS Healthcare Monocytes/100 WBC (Bld)8.6 %1.7 - 12.0 %NOMS HealthcareNEUTROPHILS ABSOLUTE AUTO 3.8NOMS HealthcareNeutrophils/100 WBC (Bld)74.6 %43.0 - 75.0 %[facility]OMMoberly [facility] Center Platelet mean volume (Bld) [Entitic vol]10.2 fL9.5 - 13.5 fLNOMS HealthcareTBH EO #0.1NOMS HealthcareTBH [id number] HealthcareTBH RBC3.99LowNOMS HealthcareTBH WBC5.1NOMS HealthcareCLINISYNCNCORDELL MEMORIAL HOSPITAL [facility] COR[facility] HealthcareMLR HEMOGLOBIN A1Con 01-12-2025 Glucose [Mass/Vol]100 mg/dLNOVT FvcwfphwjlGrM3u (Bld) [Mass fraction]5.1 %4.5 - 6.2 %NOMS HealthcareComment on above:ADA RECOMMENDED LIMIT 4.0 - 6.0 ADA THERAPEUTIC TARGET < 7.0 ACTION SUGGESTED > 7.0 CLINISYNCNOMS HealthcareConsulton [id number] Alesha Bonilla 1955 F Date Provider Department Center 09/23/2024 CHAIM GABRIEL [facility] SURG Second Fl No family history on file Level of Service:22733 CO OFFICE/OUTPATIENT NEW LOW MDM 30 MINUTES Reason for Visit and Comments: Rectal Bleeding [785930]NormalUnCleveland Clinic Fairview HospitalMHPT VAGINITIS DNA PROBEon [id number] CANDIDANegativeNEGNOMS HealthcareComment on above:for Fela sp. Method of testing is a DNA probe intended for detection and identification of Fela species, Gardnerella vaginalis, and Trichomonas vaginalis nucleic acid in vaginal fluid specimens from patients with symptoms of vaginitis/vaginosis. MHPT GARDNERELLANegativeNEGNOMS HealthcareComment on above:for Gardnerella vaginalisMHPT SOURCE.VAGINAL SWABNOMS HealthcareMHPT TRICHOMONASNegativeNEGNOMS HealthcareComment on above:for Trichomonas VaginalisOriginal Ordering Provider: KALIN CHONG [facility] HealthcareVaginitis DNA Probeon [id number] speciesNegativeNEGATIVEBon SecHealthkart [facility] HealthComment on above:for Fela sp. Method of testing is a DNA probe intended for detection and identification of Fela species, Gardnerella vaginalis, and Trichomonas vaginalis nucleic acid in vaginal fluid specimens from patients with symptoms of vaginitis/vaginosis. GARDNERELLA VAGINALISNegativeNEGATIVEBon [facility]ours [facility] HealthComment on above: for Gardnerella vaginalisSource.VAGINAL SWABBon Secours [facility] Hospitaly HealthTrichomonas NegativeNEGATIVEBon [facility]ours [facility] HealthComment on above:for Trichomonas VaginalisBon Secours [facility] Hospitaly HealthCandidaNegativeNormalNEGLakehealth Beachwood [facility] Comment on above:Result Comment: for Fela sp. Method of testing is a DNA probe intended for detection and identification of Fela species, Gardnerella vaginalis, and Trichomonas vaginalis nucleic acid in vaginal fluid specimens from patients with symptoms of vaginitis/vaginosis. Performed By: #### VAGP #### [address] [address] Associate Professor Of Economics: Daniel Dyer MD [facility] [address] [place] [address] Dr. [place], [place] [id number] Associate Professor Of Economics: Wyatt RojasaNegatTrinity Health System West Campus Comment on above:Result Comment: for Gardnerella vaginalisPerformed By: #### VAGP #### [address] [address] Associate Professor Of Economics: Daniel Dyer MD [facility] [address] [place] [address] Dr. [place], [place] [id number] Associate Professor Of Economics: Panda Carbone MDPremier HealthonasBanner Behavioral Health HospitalativeKettering Health Behavioral [facility] Center Comment on above:Result Comment: for Trichomonas VaginalisPerformed By: #### VAGP #### [address] [address] Associate Professor Of Economics: Daniel Dyer MD [facility] [address] [place] [address] Dr. [place], [place] [id number] Associate Professor Of Economics: Minh Rojas.VAGINAL SWABTogus VA Medical Center Comment on above:Performed By: #### VAGP #### [address] [address] Associate Professor Of Economics: Daniel Dyer MD [facility] [address] [place] [address] [place] [address] Associate Professor Of Economics: NAHUN RojasMichael VAGINITIS DNA PROBEon 08-21-2024 Interpretation and review of laboratory resultsAbnormalNOMS HealthcareMHPT CANDIDANegativeNEGNOMS HealthcareComment on above:for Fela sp. Method of testing is a DNA probe intended for detection and identification of Fela species, Gardnerella vaginalis, and Trichomonas vaginalis nucleic acid in vaginal fluid specimens from patients with symptoms of vaginitis/vaginosis. MHPT GARDNERELLAPositiveAbnormalNEGNOMS HealthcareComment on above:for Gardnerella vaginalisMHPT SOURCE.VAGINAL SWABNOMS HealthcareMHPT TRICHOMONAS NegativeNEGNOMS HealthcareComment on above:for Trichomonas VaginalisOriginal Ordering Provider: KALIN CHONG BARTHSRINIVASA HealthcareVaginitis DNA Probe on 47-29-9192HblowzfUwmlhfzcHbtzhrPISJzwdf Tiffin HospitalComment on above: Result Comment: for Fela sp. Method of testing is a DNA probe intended for detection and identification of Fela species, Gardnerella vaginalis, and Trichomonas vaginalis nucleic acid in vaginal fluid specimens from patients with symptoms of vaginitis/vaginosis. Performed By: #### VAGP #### [address] [address] Associate Professor Of Economics: Daniel Dyer MD [address] [place] [id number] Associate Professor Of Economics: Mauricio RojasdnerellaPositiveAbSumma Health Barberton CampusComment on above:Result Comment: for Gardnerella vaginalisPerformed By: #### VAGP #### [address] [address] Associate Professor Of Economics: Daniel Dyer MD [address] [place]FR[place]ER[place] [phone] Associate Professor Of Economics: Panda Carbone MDTricjohn paul jones hospitalonasNorwalk Memorial Hospital Comment on above:Result Comment: for Trichomonas VaginalisPerformed By: #### VAGP #### [address] [address] Associate Professor Of Economics: Daniel Dyer MD [facility] [address] [place] [address] Dr. [place] [phone] Associate Professor Of Economics: Panda Carbone MDVaginitis DNA Probeon 22-50-6397Qicwxb.VAGINAL SWABNormalMercy Connecticut Children'S Medical CenterComment on above:Performed By: #### VAGP #### [facility] [address] [place] [address] Associate Professor Of Economics: Daniel Dyer MD [facility] [address] [place] [address] Associate Professor Of Economics: ERICH Rojas TOMOSYNTHESIS SCREENING BIon 72-39-9344[address] [address] Mammography Report Signed Patient: ALESHA BONILLA MR#: [id number] : 1955 Acct:[id number] Age/Sex: 68 / F ADM Date: 05/11/24 Loc: MAMMO Attending Dr: Fay Pascal NP Ordering Physician: Fay Pascal NP Results: Date of Service: 05/11/24 Follow Up: Procedure(s): MM tomosynthesis screening BI Accession Number(s): [id number] cc: Fay Pascal NP Patient Name: ALESHA BONILLA MR#: [id number] : 1955 Exam Date: 05/11/2024 Ordering Doctor: [...] lung cancer at age 74. LOCATION: [facility] BREAST COMPOSITION: There are scattered [...] M.D. Signed By: 05/11/241421 DD/ 20 TD/TT: Healthcare Representative:TBHRadiology, Radiologist, - 05/11/2024 [place] [address] Mammography Report Signed Patient: ALESHA BONILLA MR#: [id number] : 1955 Acct:[id number] Age/Sex: 68 / F ADM Date: 05/11/24 Loc: MAMMO Attending Dr: Fay Pascal NP Ordering Physician: Fay Pascal NP Results: Date of Service: 05/11/24 Follow Up: Procedure(s): MM tomosynthesis screening BI Accession Number(s): [id number] cc: Fay Pascal NP Patient Name: ALESHA BONILLA MR#: [id number] : 1955 Exam Date: 05/11/2024 Ordering Doctor: [...] lung cancer at age 74. LOCATION: [facility] BREAST COMPOSITION: There are scattered [...] M.D. Signed By: 05/11/241421 DD/ 20 TD/TT: Healthcare Representative: [facility] HospitalRadiology Study observation (narrative)[facility] Memorial HospitalMM TOMOSYNTHESIS SCREENING BIOrdered By: Radiologist Radiology on 03-87-4258OYWBRipley County Memorial Hospital Work Phone: aLL THYROID STIM HORMONEon 12-14-9917Lsuitaqgszyrep and review of laboratory resultsAbnormalSSM DePaul Health Center Qn9.973 m[IU]/LHigh Riple[facility] County Memorial HospitalCLINISYNCNOMS HealthcareXR knee RT 4V*on 44-89-8354FF knee RT 4V* [facility] [place] [facility] [address] [place] [address] XRay Report Signed Patient: Alesha Bonilla MR#: [id number] : 1955 Acct:[id number] Age/Sex: 68 / F ADM Date: 03/19/24 Loc: [facility] Room: Type: [facility] Attending Dr: Bright Mccall II, MD Copies to: Bright Mccall MD Ordering Provider: Bright Mccall MD Date of Service: 03/19/24 XR/XR knee RT 4V*: M25.561 - Pain in right knee ([id number]) XR/XR pelvis 1-2V: M25.561 - Pain in right knee Single view of the pelvis plain film HISTORY: RIGHT knee deformity for 15 years COMPARISON: None ACUTE FINDINGS: None BONY ALIGNMENT: Adequate SOFT TISSUES: Unremarkable DEGENERATIVE CHANGE:Unremarkable INTRAPELVIC STRUCTURES: Unremarkable POSTSURGICAL CHANGES:None XR/XR pelvis 1-2V IMPRESSION:Unremarkable exam. 4 views RIGHT knee Valgus deformity. Etod-cp-mwcf contact lateral degenerative change. Small joint effusion. No acute bony findings. IMPRESSION: Valgus deformity of the RIGHT knee. Extensive tkqf-xv-shbm lateral degeneration. Impression dictated by: Dru Hu M.D.03/19/2024 3:48 PM Dictation Location: [place] [address] Transcribed By: [facility] 03/19/241547 Dictated By: Dru Hu DO 03/19/241546 Signed By: 03/19/24 1548[facility] Physician GroupCA ECHO DOPPLER COMPLETEon 13-38-8673[place] [address] Cardiology Report Signed Patient: ALESHA BONILLA MR#: [id number] : 1955 Acct:[id number] Age/Sex: 68 / F ADM Date: 01/15/24 Loc: CARD Attending Dr: Fay Pascal NP Ordering Physician: Fay Pascal NP Date of Service: 01/15/24 Procedure(s): CA echo doppler complete Accession Number(s): [id number] cc: Fay Pascal NP Patient Name: ALESHA BONILLA MR#: [id number] : 1955 Exam Date: 01/15/2024 Ordering Doctor: [...] Area (VTI): 2.20 cm2, 2.20 cm2 Deceleration [place]: 1.95 m/s2 Pressure Half-Time: 602.12 ms Peak [...] at 11:16 (more content not included)...TBHRadiology, Radiologist, MD - 01/15/2024 [place] [address] Cardiology Report Signed Patient: ALESHA BONILLA MR#: [id number] : 1955 Acct:[id number] Age/Sex: 68 / F ADM Date: 01/15/24 Loc: CARD Attending Dr: Fay Pascal NP Ordering Physician: Fay Pascal NP Date of Service: 01/15/24 Procedure(s): CA echo doppler complete Accession Number(s): [id number] cc: Fay Pascal NP Patient Name: ALESHA BONILLA MR#: [id number] : 1955 Exam Date: 01/15/2024 Ordering Doctor: [...] Area (VTI): 2.20 cm2, 2.20 cm2 Deceleration [place]: 1.95 m/s2 Pressure Half-Time: 602.12 ms Peak [...] Signed By: 01/15/24 1117 DD/ 1116 TD/TT: Healthcare Representative: OSMAR HealthcareRadiology Study observation (narrative)[facility] HealthcareCA ECHO DOPPLER COMPLETEOrdered By: Radiologist Radiology on 78-16-7640[facility] Work Phone: Urine Cultureon 65-94-2806Sqvlgxzq identified Cx Nom (U)<9,000 colonies/ml mixed bacterial skin contaminants 2 Days PERFORMED BY: [place] [address] PATHOLOGIST LINUX DEVOPS ENGINEER DON BOSTON M.D.[facility] Physician GroupComment on above:Performed By: #### CUU #### [place] [address] USAOutside Colonoscopyon 27-28-4549Yriddth Colonoscopy [id number]#1.00TIFFNoBlanchard Valley Health System 45-20-3588Hifqntnlw From: Siobhan Jernigan LPN To: GSN - Clinical; Sent: 08/01/2023 14:37:14 EDT Show up: 07/02/2033 07:00:00 EST Subject: colonoscopy recall Due Date/Time: 07/30/2033 07:00:00 EDT Reminder/Recall Patient due for screening colonoscopy 07/30/2033.[facility] HospitalTransfer Inon 34-46-3388Kshvxwzf In [id number]#1.00TIFFNormalBarberton Citizens HospitalBlood Urea Nitrogenon 60-80-5440Avjd nitrogen [Mass/Vol]16 mg/dLNormal7-25 [facility] Physician GroupComment on above:Order Comment: STAT FOR CT Performed By: #### BUN, CREAT #### [place] [address] USACT abdomen pelvis w conon 36-75-7274RT abdomen pelvis w [facility] [place] [address] [place] [address] CT Scan Report Signed Patient: Alesha Bonilla MR#: [id number] : 1955 Acct:[id number] Age/Sex: 68 / F ADM Date: 07/18/23 Loc: CT Room: Type: [facility] Attending Dr: Fay Pascal Copies [...] Cox Jr., DBlancaOBlanca07/18/2023 11:49 AM Dictation Location: [place] [address] Transcribed By: [facility] 07/18/23 1149 Dictated By: Jose Miguel Cox Jr, DO 07/18/23 1144 Signed By: 07/18/23 1149[facility] Physician GroupCreatinineon 07-18-2023 Creatinine [Mass/Vol]0.82 mg/dLNormal0.60-1.20[facility] Comment on above:Order Comment: STAT FOR CTPerformed By: #### BUN, CREAT #### [facility] [address] [place] [address] USAGFR/1.73 sq M.predicted MDRD (S/P/Bld) [Vol rate/Area] mL/min/{1.73_m2}NormalThe [facility] Physician [facility] County HospitalComment on above:Order Comment: STAT FOR CTResult Comment: PERFORMED BY: [place] [address] PATHOLOGIST LINUX DEVOPS ENGINEER DON BOSTON M.D.Performed By: #### BUN, CREAT #### [facility] [address] [place] [address] USAFacesheeton 49-78-5590Cjfxqxgoa [id number]#1.00TIFFNoalBarberton Citizens HospitalAmbulatory Visit Summaryon 85-83-7226Dlgivglzfh Visit Summary ALESHA BONILLA :1955 Visit Date:07/10/2023 [...] you for choosing us for your care. [facility] HospitalPhysician Referralon 06-28-2023 Physician [id number]#1.00TIFFNormEast Liverpool City HospitalALL CBC WITH AUTO DIFFon 74-68-4708XWAYTRTJH ABSOLUTE AUTO 0.0NOMS HealthcareBasophils/100 WBC (Bld)0.8 %0.2 - 2.0 %NOMMoberly Regional Medical Center Eosinophils/100 WBC (Bld)1.2 %0.9 - 7.0 %NOMMoberly Regional Medical CenterErythrocyte distribution width (RBC) [Ratio]12.5 %11.0 - 15.0 %NOMS HealthcareHematocrit (Bld) [Volume fraction]39.2 %36.0 - 48.0 %NOMMoberly Regional Medical CenterHemoglobin (Bld) [Mass/Vol]12.9 g/dL 12.0 - 16.0 g/dLRipley County Memorial HospitalIMMATURE GRANULOCYTES ABS AUTO0.01NOMS [facility] Immature granulocytes/100 WBC (Bld)0.2 %0.0 - 0.5 %[facility] HospitalInterpretation and review of laboratory resultsAbnormalNOCox NorthLYMPHOCYTES ABSOLUTE AUTO0.7LowNOMS [facility] HospitalLymphocytes/100 WBC (Bld)14.3 %Low20.5 - 60.0 %[facility] HospitalMCH (RBC) [Entitic mass]29.9 pg26.7 - 34.0 pgNOCox NorthMCHC (RBC) [Mass/Vol]32.9 g/dL29.9 - 35.2 g/dLNOCox NorthMCV (RBC) [Entitic vol]90.7 fL 81.0 - 99.0 fLNOCox NorthMONOCYTES ABSOLUTE AUTO0.5NOMS [facility] Monocytes/100 WBC (Bld)9.4 %1.7 - 12.0 %NOMMoberly Regional Medical CenterNEUTROPHILS ABSOLUTE AUTO 3.9NOMS [facility] HospitalNeutrophils/100 WBC (Bld)74.1 %43.0 - 75.0 %[facility] Platelet mean volume (Bld) [Entitic vol]10.2 fL9.5 - 13.5 fLNOCox NorthTBH EO #0.1NOMS HealthcareTB [id number] [facility] HospitalTB RBC4.32NOMS [facility] HospitalTB WBC 5.2NOMS HealthcareCLINISYNCNCORDELL MEMORIAL HOSPITAL [facility] HealthcareMM TOMOSYNTHESIS SCREENING BIon 29-91-7450Rtm[place] [address] Mammography Report Signed Patient: Alesha Bonilla MR#: [id number] : 1955 Acct:[id number] Age/Sex: 67 / F ADM Date: 05/10/23 Loc: MAMMO Attending Dr: Phoenix Garner M.D. Ordering Physician: Phoenix Garner M.D. Results: Date of Service: 05/10/23 Follow Up: Procedure(s): MM tomosynthesis screening BI Accession Number(s): [id number] cc: Phoenix Garner M.D. Patient Name: ALESHA BONILLA MR#: [id number] : 1955 Exam Date: 05/10/2023 Ordering Doctor: [...] lung cancer at age 74. LOCATION: [facility] BREAST COMPOSITION: Scattered areas fibroglandular [...] By: Melyssa Johnson M.D. Signed By: 05/10/23 5583 DD/ 1449 TD/TT: Healthcare Representative:TBHRadiology, Radiologist, - 05/10/2023 [place] [address] Mammography Report Signed Patient: Alesha Bonilla MR#: [id number] : 1955 Acct:[id number] Age/Sex: 67 / F ADM Date: 05/10/23 Loc: MAMMO Attending Dr: Phoenix Garner M.D. Ordering Physician: Phoenix Garner M.D. Results: Date of Service: 05/10/23 Follow Up: Procedure(s): MM tomosynthesis screening BI Accession Number(s): [id number] cc: Phoenix Garner M.D. Patient Name: ALESHA BONILLA MR#: [id number] : 1955 Exam Date: 05/10/2023 Ordering Doctor: [...] lung cancer at age 74. LOCATION: [facility] BREAST COMPOSITION: Scattered areas fibroglandular [...] Signed By: 05/10/23 1450 DD/ 1449 TD/TT: Healthcare Representative: OSMAR HealthcareRadiology Study observation (narrative)[facility] HospitalMM TOMOSYNTHESIS SCREENING BIOrdered By: Radiologist Radiology on 17-00-3704[facility] Work Phone: cNOVshashank [phone] Visit (MARCO A) ALESHA BONILLA ([id number]) 1955 F Date Time Provider Department 07/30/22 [...] 67 year old female coming to the [facility] office in regards to mucous drainage/leakage.Patient notes clear sticky discharge that is odorous after bowel movement and/or shower. She has a history of issues with diarrhea in the past ( 2 years ago). In which a CT scan,MRI and colonoscopy ( brought to assistant front office manager to be scanned in) were completed [...] or other liver disea (more content not included)...NormalUniversity Hospitals Samaritan Medical CenterTORY PHYSICALon 52-46-7847BLNRDKD PHYSICALHNO ID: [id number] Author: Lorraine Mckinley PA-C Service: ? Author Type: Physician Picture Enlarger Type: HANDP Filed: 07/30/2022 11:25 AM Note [...] CT scan,MRI and colonoscopy ( brought to assistant front office manager to be scanned in) were completed [...] stimulator, spinal cord stimula (more content not included)...NormalPromedica Toledo HospitalMG MAMM SCREEN 3D NEETA CADon 55-80-2448KC MAMM SCREEN 3D NEETA CADPatient: ALESHA BONILLA Exam Date: 05/09/2022 : 1955 Gender:F Ordering : DR PHOENIX GARNER . Admission #: [id number] Family : Order #: [id number] CLICK HERE TO VIEW EXAM RADIOLOGY REPORT [...] lung cancer at age 74. LOCATION: [facility] BREAST COMPOSITION: Scattered areas fibroglandular [...] by: Melyssa Johnson M.D. on 05/09/2022 at 10:59NormalThOhioHealth Nelsonville Health Center AUTO DIFFon 46-76-6685HDTP #0.0 103/ulNormal0.0-0.1[facility] General Health CenterComment on above:Performed By: #### CBC #### [facility] [address] [place] [address] Dr. William GarcíaBasophils/100 WBC (Bld)0.8 %Normal0.2-2.0[facility] Comment on above:Performed By: #### CBC #### [facility] [address] [place] [address] [address] William Hodgson #0.1 103/ulNormal0.0-0.7The [facility] HospitalComment on above: Performed By: #### CBC #### [facility] [address] [place] [address] Dr. William Puentesosinophils/100 WBC (Bld)2.0 %Normal0.9-7.0[facility] Comment on above:Performed By: #### CBC #### [facility] [address] [place] [address] Dr. William Puentesrythrocyte distribution width (RBC) [Ratio]12.7 %Dcikbz47.0-15.0 [facility] General Health CenterComment on above:Performed By: #### CBC #### [facility] [address] [place] [address] Dr. William GarcíaHematocrit (Bld) [Volume fraction]39.2 %Jjlgeq35.0-48.0The [facility] HospitalComment on above:Performed By: #### CBC #### [facility] [address] [place] [address] [address] William GarcíaHemoglobin (Bld) [Mass/Vol]12.8 g/gVFmpimt86.0-16.0The [facility] HospitalComment on above:Performed By: #### CBC #### [facility] [address] [address] [address] William Coates #0.01 10e3/ulNormal0.00-0.03The [facility] HospitalComment on above:Performed By: #### CBC #### [facility] [address] [place] [address] Dr. William Coates %0.2 %Normal0.0-0.5The [facility] HospitalComment on above: Performed By: #### CBC #### [facility] [address] [place] [address] Dr. William Johnston #0.9 103/ulCritically low1.2-3.8The [facility] Comment on above:Performed By: #### CBC #### [facility] [address] [place] [address] Dr. William Robersonhocytes/100 WBC (Bld)17.4 %Critically low20.5-60.0The [facility] HospitalComment on above:Performed By: #### CBC #### [facility] [address] [place] [address] Dr. William WrightUAL DIFF REQNONormalThe [facility] HospitalComment on above: Performed By: #### CBC #### [facility] [address] [place] [address] Dr. William Reyes (RBC) [Entitic mass]30.0 ikEbyvna67.7-34.0The [facility] HospitalComment on above:Performed By: #### CBC #### [facility] [address] [place] [address] Dr. William Reyes (RBC) [Mass/Vol]32.7 g/bTPrzwme26.9-35.2The [facility] HospitalComment on above:Performed By: #### CBC #### [facility] [address] [place] [address] Dr. William ReyesV (RBC) [Entitic vol]91.8 yIOggsbh92.0-99.0The Toledo Hospitalment on above:Performed By: #### CBC #### [facility] [address] [place] [address] Dr. William Santos #0.5 103/ulNormal0.3-0.8The [facility] HospitalComment on above:Performed By: #### CBC #### [facility] [address] [place] [address] Dr. William Nguyễnocytes/100 WBC (Bld)10.7 %Normal1.7-12.0The [facility] Comment on above:Performed By: #### CBC #### [facility] [address] [place] [address] Dr. William Okeefe #3.5 103/ulNormal1.4-6.5The [facility] HospitalComment on above:Performed By: #### CBC #### [facility] [address] [place] [address] Dr. William Brockutrophils/100 WBC (Bld)68.9 %Vfeeqw04.0-75.0The [facility] HospitalComment on above:Performed By: #### CBC #### [facility] [address] [place] [address] Dr. William Marylet mean volume (Bld) [Entitic vol]10.3 fLNormal9.5-13.5The [facility] HospitalComment on above:Performed By: #### CBC #### [facility] [address] [place] [address] Dr. William GarcíaPLT189 103/apLvovpc514-622Fhd Toledo Hospitalment on above: Performed By: #### CBC #### [facility] [address] [place] [address] Dr. William GarcíaRBC4.27 106/ulNormal4.20-5.40The [facility] HospitalComment on above:Performed By: #### CBC #### [facility] [address] [place] [address] [address] William GarcíaWBC5.1 103/ulNormal4.0-11.0The [facility] HospitalCominsight surgical hospital on above: Performed By: #### CBC #### [facility] [address] [place] [address] [address] William Mock T3on 43-25-9536ZXCK T32.63 pg/mlLNormal2.18-3.98The [facility] HospitalCominsight surgical hospital on above:Performed By: #### FT3, TSH, AST, LIPID, ALT, BMP ####[facility] [address] [place] [address]Dr. William FaganEE T4on 41-61-6607Byrt T4 [Mass/Vol]1.42 ng/dLNormal0.76-1.46The [facility] HospitalCominsight surgical hospital on above:Performed By: #### FT4, VITAD #### [facility] [address] [place] [address] [address] William GarcíaGLYCOHEMOGLOBIN A1Con 20-06-6418XHI RECOMMENDATIONSEE BELOWNormFirelands Regional Medical Center South CampusCominsight surgical hospital on above:Result Comment: ADA RECOMMENDED LIMIT 4.0 - 6.0 ADA THERAPEUTIC TARGET < 7.0 ACTION SUGGESTED > 7.0Performed By: #### A1C #### [facility] [address] [place] [address] [address] William GarcíaGlucose [Mass/Vol]105 mg/dLNoMercer County Community HospitalCominsight surgical hospital on above:Performed By: #### A1C #### [facility] [address] [place] [address] [address] William GarcíaHbA1c (Bld) [Mass fraction]5.3 %Normal4.5-6.2The [facility] on above:Performed By: #### A1C #### [facility] [address] [place] [address] [address] William GarcíaLIPID PROFILEon 40-14-1509BHWD-HDL RATIO NORMSEE BELOWrmSelect Medical Cleveland Clinic Rehabilitation Hospital, BeachwoodCominsight surgical hospital on above:Result Comment: 3.3 - 4.4 LOW RISK 4.4 - 7.1 AVERAGE RISK 7.1 - 11.0 MODERATE RISK >11.0 HIGH RISKPerformed By: #### FT3, TSH, AST, LIPID, ALT, BMP ####[facility] [address] [place] [address]Dr. Yilan ChangCholesterol [Mass/Vol]222 mg/dLCritically high<=200[facility] Health CenterCominsight surgical hospital on above:Performed By: #### FT3, TSH, AST, LIPID, ALT, BMP ####[facility] [address] [place], [place] [address]Dr. Yilan ChangCholesterol in HDL [Mass/Vol]76 mg/dLCritically high 40-60[facility] CenterCominsight surgical hospital on above:Performed By: #### FT3, TSH, AST, LIPID, ALT, BMP ####[facility] [address] [place], [place] [address]Dr. Yilan ChangCholesterol in LDL [Mass/Vol]136.4 mg/dLMorrow County HospitalCominsight surgical hospital on above:Performed By: #### FT3, TSH, AST, LIPID, ALT, BMP ####[facility] [address] [place], [place] [address]Dr. Yilan ChangCholesterol.total/Cholesterol in HDL [Mass ratio]2.9 {ratio}Normal The [facility] HospitalCominsight surgical hospital on above:Performed By: #### FT3, TSH, AST, LIPID, ALT, BMP ####[facility] [address] [place], [place] [address]Dr. Yilan ChangHDL NORMAL> or = 60 mg/dl - LOW CARDIOVASCULAR RISK <40 mg/dl - HIGH CARDIOVASCULAR RISKMorrow County HospitalComment on above: Performed By: #### FT3, TSH, AST, LIPID, ALT, BMP ####[facility] [address] [place], [place] [address]Dr. Yilan ChangLDL CALC NORMALSEE BELOWMorrow County HospitalComment on above:Result Comment: <100 mg/dl OPTIMAL 100 - 129 mg/dl NEAR OR ABOVE OPTIMAL 130 - 159 mg/dl BORDERLINE HIGH 160 - 189 mg/dl HIGH >190 mg/dl VERY HIGHPerformed By: #### FT3, TSH, AST, LIPID, ALT, BMP ####[facility] [address] [place] [address]Dr. Yilan ChangTriglyceride [Mass/Vol]48 mg/dLNormal<=150The [facility] HospitalComment on above:Performed By: #### FT3, TSH, AST, LIPID, ALT, BMP ####[facility] [address] [place] [address]Dr. Yilan ChangVLDL CALC9.6 mg/dLNormalThe [facility] HospitalComment on above: Performed By: #### FT3, TSH, AST, LIPID, ALT, BMP ####[facility] [address] [place] [address]Dr. Annikalan ChangPROF CHEM 8 (BAS METB)on 81-58-7790Ypxjt gap [Moles/Vol]11.6 mmol/LNormalThe [facility] HospitalComment on above:Performed By: #### FT3, TSH, AST, LIPID, ALT, BMP ####[facility] [address] [place], [place] [address]Dr. Yilan ChangCalcium [Mass/Vol]9.0 mg/dLNormal8.5-10.1The [facility] HospitalComment on above:Performed By: #### FT3, TSH, AST, LIPID, ALT, BMP ####[facility] [address] [place], [place] [address]Dr. Yilan García Chloride [Moles/Vol]106 mmol/WUjmjmm22-725Ada [facility] HospitalComment on above: Performed By: #### FT3, TSH, AST, LIPID, ALT, BMP ####[facility] [address] [place], [place] [address]Dr. Yilan ChangCO2 [Moles/Vol]28.4 mmol/PIngtak43.0-32.0The [facility] HospitalComment on above: Performed By: #### FT3, TSH, AST, LIPID, ALT, BMP ####[facility] [address] [place], [place] [address]Dr. Yilan ChangCreatinine [Mass/Vol]0.64 mg/dLNormal0.55-1.02The [facility] HospitalComment on above: Performed By: #### FT3, TSH, AST, LIPID, ALT, BMP ####[facility] [address] [address]Dr. Yilan ChangEGFR-AF ROMANIAN>60Normal>=60The [facility] HospitalComment on above:Performed By: #### FT3, TSH, AST, LIPID, ALT, BMP ####[facility] [address] [place], [place] [address]Dr. Yilan ChangEGFR-NON AF ROMANIAN>60Normal>=60The [facility] on above:Performed By: #### FT3, TSH, AST, LIPID, ALT, BMP ####[facility] [address] [place], [place] [address]Dr. Yilan ChangGlucose [Mass/Vol]87 mg/tEOjugvq74-965Qxp [facility] on above:Performed By: #### FT3, TSH, AST, LIPID, ALT, BMP ####[facility] [address] [place], [place] [address]Dr. Yilan ChangPotassium [Moles/Vol]4.0 mmol/LNormal3.5-5.1The [facility] HospitalComins[facility] on above: Performed By: #### FT3, TSH, AST, LIPID, ALT, BMP ####[facility] [address] [place], [place] [address]Dr. Yilan ChangSodium [Moles/Vol]142 mmol/NCzllww376-471Sdv [facility] HospitalComins[facility] surgical hospital on above: Performed By: #### FT3, TSH, AST, LIPID, ALT, BMP ####[facility] Pfkzw[address] [place], [place] [address]Dr. Yilan ChangUrea nitrogen [Mass/Vol]14.0 mg/dLNormal7.0-18.0The [facility] Hospitalment on above: Performed By: #### FT3, TSH, AST, LIPID, ALT, BMP ####[facility] [address] [address]Dr. William GarcíaUrea nitrogen/Creatinine [Mass ratio]21.9 mg/mgMorrow County HospitalComment on above:Performed By: #### FT3, TSH, AST, LIPID, ALT, BMP ####[facility] [address] [address]Dr. William CadenaOTon 91-51-7256QYV [Catalytic activity/Vol]18 U/XNkynfj91-90SgfSouthwest General Health Center Comment on above:Performed By: #### FT3, TSH, AST, LIPID, ALT, BMP #### [facility] [address] [address] [address] William Tipton 61-25-2659CEI [Catalytic activity/Vol]24 U/CKxntae81-41XseSouthwest General Health CenterComment on above:Performed By: #### FT3, TSH, AST, LIPID, ALT, BMP ####[facility] [address] [address]Dr. William GarcíaTSHon 05-82-3788AHP9.729 uIU/mLNormal0.358-3.740[facility] Comment on above:Performed By: #### FT3, TSH, AST, LIPID, ALT, BMP ####[facility] [address] [address]Dr. William GarcíaTSH RANGESEE [facility] Barberton CampusComment on above:Result Comment: <0.34 UIU/ml HYPERTHYROID 0.34-5.60 UIU/ml EUTHYROID >5.60 UIU/ml HYPOTHYROIDPerformed By: #### FT3, TSH, AST, LIPID, ALT, BMP ####[facility] [address] [address]Dr. William GarcíaVITAMIN D 25 OHon 10-18-2021 VIT D 25-OH25.2 ng/mLNormalSouthwest General Health CenterComment on above:Performed By: #### FT4, VITAD #### [facility] [address] [address] [address] William Cho RANGESSEE BELOWNoMercer County Community HospitalComment on above: Result Comment: <20 ng/mL Vit D deficient 20 - <30 ng/mL Vit D insufficient 30 - 100 ng/mL Vit D sufficient >100 ng/mL Potential ToxicityPerformed By: #### FT4, VITAD #### [facility] [address] [place] [address] Dr. William Mock T3 LABCORPon 01-08-5786Krhkmxpemuuxnonh (T3) Free2.5 pg/mL Normal2.0-4.4The [facility] HospitalComment on above:Performed By: #### FT3LC #### [facility] [address] [place] [address] Dr. William Cho 25-OH LABCORPon 68-41-8189Nqlfkdh D, 25-Ifoecmr83.2 ng/mL Critically low30.0-100.0The [facility] HospitalCominsight surgical hospital on above:Result Comment: Vitamin D deficiency has been defined by the [place] of [employer] and an Endocrine Society practice guideline as a level of serum 25-OH vitamin D less than 20 ng/mL (1,2). The Endocrine Society went on to further define vitamin D insufficiency as a level between 21 and 29 ng/mL (2). 1. IOM ([place] of [employer]). 2010. Dietary reference intakes for calcium and D. [place]: The National Academies Press. 2. Ashley MF, Nicole NC, Mac ALMEIDA, et al. Evaluation, treatment, and prevention of vitamin D deficiency: an Endocrine Society clinical practice guideline. JCEM. 2010; 96(7):1911-30.Performed By: #### VITADLC #### [facility] [address] [place] [address] Dr. William Mock T4on 51-29-3487Tnha T4 [Mass/Vol]0.96 ng/dLNormal0.78-2.19 The [facility] HospitalCominsight surgical hospital on above:Performed By: #### FT4 #### [facility] [address] [place] [address] Dr. William Fritz 82-79-8277APU8.014 uIU/mLCritically high0.470-4.680South[facility] General Health CenterComment on above:Performed By: #### TSH #### [facility] [address] [place] [address] [address] William GarcíaSCCI Hospital LimaComment on above: Result Comment: <0.34 UIU/ml HYPERTHYROID 0.34-5.60 UIU/ml EUTHYROID >5.60 UIU/ml HYPOTHYROIDPerformed By: #### TSH #### [facility] [address] [place], [place] [address] Dr. William García Vital Signs Date TimeVital SignValuePerforming QicjpmlwzTnubqigp07-76-7719 10:06-0400Body mass index (BMI) [Ratio]22.11 kg/m2Lisa Pascal [employer] Work Phone: [facility] HospitalQvdkuhrrqc95-11-2625 10:06-0400Body temperature 98.1 [degF]Fay Pascal [employer] Work Phone: [place] [address]Moakaxjxcm25-59-9349 10:06-0400Body vtacbj09.14 kgLisa Chadhdexter [employer] Work Phone: [place] [address]Uzoparrykw82-56-5795 10:06-0400Diastolic blood ybrxfmpp89 mm[Hg]Fay Naida [employer] Work Phone: [place] [address]Erjjlcvptj93-49-3884 10:06-0400Heart rate84 /min Fay Chadhrameshz [employer] Work Phone: [place] [address]Ohzsajfolo50-03-6593 10:06-0400Respiratory rate18 /minLisa Chadhrameshz [employer] Work Phone: [place] [address]Unajyiegzr66-25-3624 10:06-1433FdO0% (BldA) [Mass fraction]99 %Fay Naida [employer] Work Phone: [place] [address]Gmfroljgkp62-12-7214 10:06-0400Systolic blood ewmamkiq15 mm[Hg]Fay Aichholz [employer] Work Phone: [facility] HospitalJbwxcqxeaz07-35-5856 09:14-0400Body .6 cmSteven Rusher DPM Work Phone: [facility] HospitalWytrmbzxor16-94-7509 09:14-0400Body mass index (BMI) [Ratio]22.11 kg/b7Tjzxdg Rusher DPM Work Phone: [facility] HospitalIitsquqfey40-40-3052 09:14-0400Body avzafd18.14 kgSteven Rusher DPM Work Phone: [facility] HospitalEcxypnokfk73-21-7190 09:17-0400Body swlges641.64 cmMD Bright Adkinsle II Work Phone: [facility]10-30-2024 09:17-0400 Body mass index (BMI) [Ratio]21.9 kg/m2MD [facility] II Work Phone: [facility]10-30-2024 09:17-0400 Body ckluyd84.68 kgMD Bright Pittsisle II Work Phone: [facility]10-02-2024 09:00-0400 Body mkhijr664.6 cmLisa Naida [employer] Work Phone: [facility] HospitalRjpujnivdd35-42-8793 09:00-0400Body mass index (BMI) [Ratio]22.21 kg/m2Lisa Naida [employer] Work Phone: [facility] HospitalKlbujisgdf01-77-0835 09:00-0400Body temperature 98.1 [degF]Fay Naida [employer] Work Phone: [facility] HospitalLziovxqkdl08-60-3897 09:00-0400Body fofvjm37.41 kgLisa Naida [employer] Work Phone: [facility] HospitalXpjyxowmwb77-98-9850 09:00-0400Diastolic blood kjeeuiba64 mm[Hg]Fay Naida [employer] Work Phone: [facility] HospitalEtsdpusnfu20-12-9828 09:00-0400Heart rate59 /min Fay Federicaz [employer] Work Phone: [facility] HospitalSlchntcyzp25-50-1949 09:00-0400Respiratory rate19 /minLisa Federicaz [employer] Work Phone: [facility] HospitalWanblebuzi03-74-2237 09:00-4441JuL8% (BldA) [Mass fraction]98 %Fay Federicaz [employer] Work Phone: [facility] HospitalMvkasiwttk29-96-5906 09:00-0400Systolic blood yfljyqrx47 mm[Hg]Fay Ianholz [employer] Work Phone: [facility] HospitalHuqftkobfr92-47-5356 10:37-0400Body wimjyz216.6 cmLisa Ianholz [employer] Work Phone: [facility] HospitalKarwcajtsr48-97-4816 10:37-0400Body mass index (BMI) [Ratio]21.82 kg/m2Lisa Federicaz [employer] Work Phone: [facility] HospitalEutejylcin07-00-2484 10:37-0400Body temperature 97.5 [degF]Fay Federicaz [employer] Work Phone: [facility] HospitalCuoxwodbnm10-29-1240 10:37-0400Body twfyzw05.33 kgLisa Federicaz [employer]ER Work Phone: [facility] HospitalOnhnbntsyx79-11-5782 10:37-0400Diastolic blood tlifaiax13 mm[Hg]Fay Federicaz [employer]ER Work Phone: [facility] HospitalUwiinbyjok57-88-0367 10:37-0400Heart rate61 /min Fay Ianholz [employer] Work Phone: [place] [address]Bqvrrtqsks09-82-5733 10:37-0400Respiratory rate18 /minLisa Ianholz [employer] Work Phone: [place] [address]Vwwaqsyupw81-04-3713 10:37-2573WmI0% (BldA) [Mass fraction]98 %Fay Ianholz [employer] Work Phone: [place] [address]Wunvipqpog04-32-6680 10:37-0400Systolic blood kzautuez194 mm[Hg]Fay Pascal NP Work Phone: [facility] HospitalAnyyynqnhx19-38-9632 17:43-0400Body alcdpf350.64 cmToledo Hospital07-16-2024 17:43-0400Body mass index (BMI) [Ratio]21.7 kg/r3HygfqtcxdToledo Hospital07-16-2024 17:43-0400Body .8 [degF][facility]07-16-2024 17:43-0400Body xdiyyu95.89 kgToledo Hospital07-16-2024 17:43-0400Diastolic blood smdhzpdo06 mm[Hg][facility]07-16-2024 17:43-0400 Heart rate86 /[facility]07-16-2024 17:43-0400 Respiratory rate16 /[facility]07-16-2024 17:43-0400 SaO2% (BldA) [Mass fraction]96 %[facility]07-16-2024 17:43-0400Systolic blood oxdehhua596 mm[Hg][facility] 07-10-2023 14:08-0500Blood Pressure LocationMichael NILL [facility]02-21-2024 14:08-0500Diastolic blood dxmtrpca84 mm[Hg]Jose M NILL [facility] Pcgiafcy75-85-3868 14:08-0500Heart rate 74 /minMichael NILL [facility]02-21-2024 14:08-0500 Respiratory rate16 /minMichael NILL [facility]02-21-2024 14:08-0500Systolic blood uwjtdozp654 mm[Hg]Jose M NILL [facility]02-08-2024 09:43-0500Body .6 Aleja Pascal NP Work Phone: [facility] HospitalCrlpsiynyv13-05-0379 09:43-0500Body mass index (BMI) [Ratio]21.89 kg/m2Fay Pascal [employer] Work Phone: [facility] HospitalOqkxllbdwp54-61-2185 09:43-0500Body temperature 97.11 [degF]Fay Pascal [employer] Work Phone: [facility] HospitalWkrnltubqb41-93-5493 09:43-0500Body ojhwjy27.51 kgFay Pascal [employer] Work Phone: [facility] HospitalWfdbsgvsfr98-20-0771 09:43-0500Diastolic blood ocyubpns63 mm[Hg]Fay Pascal [employer] Work Phone: [facility] HospitalLseqtdwmjg12-64-6674 09:43-0500Heart rate67 /min Fay Pascal [employer] Work Phone: [facility] HospitalGoazuahubw53-60-3156 09:43-0500Respiratory rate18 /minLisa Pascal [employer]ER Work Phone: [facility] HospitalUqjmdtpljq65-41-7501 09:43-3726HxP7% (BldA) [Mass fraction]97 %Fay Pascal [employer]ER[employer] Work Phone: noCox NorthYlfnqgysww15-36-4259 09:43-0500Systolic blood ggmlujbn54 mm[Hg]Fay Pascal [employer] Work Phone: [facility] HospitalPtrsrveoqy19-04-7017 09:36-0400Body jtiiko442.6 cmJessica Sankovic PA-C Work Phone: [place] Txuqaw37-02-2149 09:36-0400Body temperature 97.81 [degF]Lorraine Daniloic PA-C Work Phone: [place] Gzpdzv25-21-3052 09:36-0400Body auzuth02.77 kgJessica Sankovic PA-C Work Phone: [place] Sldxkh11-61-0341 09:36-0400Diastolic blood yehnhyum65 mm[Hg]Lorraine Carrascoic PA-C Work Phone: [place] Wibpak01-69-4241 09:36-0400Heart rate65 /min Lorraine Carrascoic PA-C Work Phone: [place] Hnufhq79-71-9300 09:36-6627CpC9% (BldA) [Mass fraction]98 %Lorraine Carrascoic PA-C Work Phone: [place] Nuuqav07-15-6683 09:36-0400Systolic blood ouasknzr062 mm[Hg]Lorraine Carrascoic PA-C Work Phone: [place] Lpdien24-64-9947 10:30-0400Body revdma230.64 cmPanda Santos Other [employer] Other 05-24-2022 10:30-0400Body mass index (BMI) [Ratio] 22.27 kg/a9PloxnPanda Santos Other [facility] [employer] Other 05-24-2022 10:30-0400Body uuggolgmagk30.4 [degF]Panda Santos Other [employer] Other 05-24-2022 10:30-0400Body poadpi29.6 kgPanda Santos Other [facility] [employer] Other 05-24-2022 10:30-0400Diastolic blood qmywoqiq11 mm[Hg] Panda Santos Other [facility] Other 05-24-2022 10:30-3625TvA8% (BldA) [Mass fraction]99 % Panda Santos Other [facility] Other 05-24-2022 10:30-0400Systolic blood dxylliap958 mm[Hg] Panda Santos Other [facility] Other 03-01-2022 16:00-0500Body .64 cmDavid Hykes Other [facility] [employer] Other 03-01-2022 16:00-0500Body mass index (BMI) [Ratio] 22.92 kg/o6Einib Hykes Other [facility] [employer] Other 03-01-2022 16:00-0500Body kxuiab66.41 kgDavid Hykes Other [facility] [employer] Other 03-01-2022 16:00-0500Diastolic blood mzhlmvom53 mm[Hg] Panda Hicks Other [facility] [employer] Other 03-01-2022 16:00-0500Systolic blood iijvhrdl134 mm[Hg] Panda Hicks Other [facility] [employer] Other 01-27-2022 11:00-0500Body evunjf583.64 cmDavid Hykes Other [facility] [employer] Other 01-27-2022 11:00-0500Body mass index (BMI) [Ratio] 22.43 kg/q9Tskwg Hykes Other [facility] Other 01-27-2022 11:00-0500Body vejxov43.05 kgDavid Hykes Other [facility] [employer] Other 10-07-2021 16:30-0400Body wtuuvq541.64 cmKelsey Pop Other [facility] Other 10-07-2021 16:30-0400Body mass index (BMI) [Ratio] 22.59 kg/q8RhvmcpywKelsey Pop Other [facility] Other 10-07-2021 16:30-0400Body pbnqby41.5 kgKelsey Pop Other [facility] Other Encounters Encounter DateEncounter TypeCare ProviderFacilityStart: 03-29-2025 End: 32-28-3443umoaeymntzCTEKOAWWWNF [facility] Start: 03-25-2025 End: 26-62-7958oqlbhjucnhUZWCNZZRIDA [facility] Start: 03-03-2025 End: 58-29-8324dfpyhzxyooVQBPXSANRDB [facility] Start: 01-12-2025 End: 89-88-6564Sqpunwenb Result EncounterLisa Aichholz [employer] Work Phone: noms External Department UnsolicitedStart: 01-12-2025 End: 14-61-9965Gdawndprv Result EncounterLisa Aichholz [employer] Work Phone: n[facility] External Department UnsolicitedStart: 01-12-2025 End: 47-95-2478Gheosnh encounter procedureLisa Aichholz [employer]ER Work Phone: noms [facility] FMComment on above:Encounter for subsequent annual wellness visit (AWV) in Medicare patient (Primary Dx); Obstructive sleep apnea syndrome; Dyslipidemia ; Encounter for screening mammogram for malignant neoplasm of breast; Osteoporosis, postmenopausal ; Vitamin D deficiency; Prediabetes; Hypothyroidism, adult ; Heart murmur; Nonrheumatic aortic valve insufficiencyStart: 01-12-2025 End: 02-79-8042iefqqmfzzeSNDX AICHHOLZNot AvailableStart: 12-08-2024 End: 10-73-9276VpqsgxPnhv Aichholz [employer]ERER Work Phone: noms CWM FMComment on above:Hypothyroidism, adult Start: 09-29-2024 End: 34-39-4381Pkunua outpatient visit 15 minutesStevjoel Dickerson DPM Work Phone: noms PODIATRYComment on above:Dermatophytosis of nail (Primary Dx); Dystrophic nail; Pain around toenail, left foot; Pain around toenail, right foot; Difficulty walkingStart: 09-29-2024 End: 13-38-7914vdcsajpujwIHVLKE A RUSHERNot AvailableStart: 09-23-2024 End: 52-43-4223bugkfrczisVAHLOGALZ [facility] Start: 09-10-2024 End: 89-65-9289Djohefbhk Result EncounterGeneric External Data ProviderNOMS External Department UnsolicitedStart: 09-10-2024 End: 34-23-0293Tkirluklz Result EncounterGeneric External Data ProviderNOMS External Department UnsolicitedStart: 09-10-2024 End: 01-93-7425ibvrnivkrhZFDXAlex Garcia Halma HospitalStart: 09-10-2024 End: 81-13-4910Zmbidmwtny hospital visit by Donovan Marcelino NP Work Phone: [facility] LABComment on above:Vaginal dischargeStart: 09-08-2024 End: 47-01-6509Xqvqwe Sofi Pascal [employer] Work Phone: noms CWM FMComment on above:Rectal bleeding (Primary Dx)Start: 08-27-2024 End: 92-30-9711OxcameDxzx Aichholz NP Work Phone: noms CWM FMComment on above:Hypothyroidism, adult (CMS/HCC)Start: 08-20-2024 End: 06-76-0684Rvewlwipx Result EncounterGeneric External Data ProviderNOMS External Department UnsolicitedStart: 08-20-2024 End: 64-89-4993Uvtklcfsk Result EncounterGeneric External Data ProviderNOMS External Department UnsolicitedStart: 08-20-2024 End: 91-41-3320jfbnpsusfeYRVMPIZ [facility] Centerchhaya Antunez HospitalStart: 08-20-2024 End: 63-68-8901Jjaccvewuh hospital visit by Donovan Marcelino NP Work Phone: [facility] LABComment on above:Vaginal dischargeStart: 06-09-2024 End: 22-90-3848PxihmfDlpq Aichholz [employer]ERER Work Phone: noms CWM FMComment on above:Hypothyroidism, adult (CMS/HCC) (Primary Dx)Start: 05-11-2024 End: 57-76-7111Jbzaauolg Result EncounterLisa Pascal [employer] Work Phone: noms External Department UnsolicitedStart: 05-11-2024 End: 15-67-9718Gxsyqoquf Result EncounterLisa Naida [employer] Work Phone: noms External Department UnsolicitedStart: 04-23-2024 End: 20-32-6665EpuhkaMqpc Aichholz [employer]ERER Work Phone: noms CWM FMComment on above:Hypothyroidism, adult (CMS/HCC) (Primary Dx)Start: 04-21-2024 End: 91-14-3705Zvwyantsn Result EncounterLisa Pascal [employer] Work Phone: noms External Department UnsolicitedStart: 04-21-2024 End: 62-64-6267Occoimpxs Result EncounterLisa Pascal [employer]ERER Work Phone: noms External Department UnsolicitedStart: 03-19-2024 End: 78-89-3259Whljuyd encounter procedureMD Bright Mccall II Work Phone: [facility] Work Phone: Start: 03-19-2024 End: 66-58-2664orcqldytdcDCFFayette County Memorial Hospital Work Phone: Start: 02-19-2024 End: 15-43-6812Gfejbp flowsheetLisa Aichholz [employer]ERER Work Phone: noms CWM FMStart: 02-19-2024 End: 88-25-2090Izvkpq flowsheetLisa Aichholz [employer] P[employer]ERER Work Phone: noms CWM FMStart: 02-19-2024 End: 62-27-9826Eevevp outpatient visit 25 minutesLisa Chadhholz [employer]ERER Work Phone: noms CWM FMComment on above:Hypothyroidism, adult (CMS/HCC) (Primary Dx); Heart murmur; Obstructive sleep apnea syndromeStart: 02-19-2024 End: 61-15-6939HeqpgcFbcv Aichholz [employer]ERER Work Phone: noms CWM FMComment on above:Hypothyroidism, adult (CMS/HCC) (Primary Dx)Start: 01-15-2024 End: 63-05-6258Yglorxogo Result EncounterLisa Aichholz [employer] P[employer]ERER Work Phone: noms External Department UnsolicitedStart: 01-15-2024 End: 99-30-6986Crbrypihn Result EncounterLisa Aichholz [employer] P[employer]ERER Work Phone: noms External Department UnsolicitedStart: 01-07-2024 End: 53-38-7446Ihihbt flowsheetLisa Aichholz [employer] P[employer]ERER Work Phone: NO[facility] CWM FMStart: 01-07-2024 End: 47-10-3453Sdrflc flowsheetLisa Aichholz [employer] P[employer]ERER Work Phone: noms CWM FMStart: 01-07-2024 End: 51-88-2326Abkosnb encounter procedureLisa Aichholz [employer]ERER Work Phone: NOBS HealthcareComment on above:Encounter for subsequent annual wellness visit (AWV) in Medicare patient (Primary Dx); Hypothyroidism, adult (CMS/HCC); Encounter for screening mammogram for malignant neoplasm of breast; Vitamin D deficiency; Osteoporosis, 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CMS/HCC); Heart murmur; Obstructive sleep apnea syndromeStart: 12-03-2023 End: 57-81-6350Barreikw ReferredAPRN Christiane SorensenSofia Work Phone: [facility] [place] Work Phone: Start: 12-03-2023 End: 75-15-9310hhgkhjebpaGzqt WasylikSofiaSub[facility] Work Phone: Start: 12-03-2023 End: 15-76-6534Nrrsgpi encounter procedureCaromont Health Phys[facility] Work Phone: Start: 07-31-2023 End: 85-73-5864xfijswdyekCwakegi R NILLFacility: BellevueStart: 07-18-2023 End: 64-60-0877adhkpgnmzxEjuj NadererFacility:[facility] Start: 07-10-2023 End: 72-78-8802dujyanvvdkHfruamo R NILLFacility: [place]vueStart: 07-10-2023 End: 06-56-3066Regvnca encounter procedureMichael R NILL General Surgery Nill/Said Estella Start: 82-63-2566brnvdqqlegSfvdajq NILLFacility: BellevueStart: 25-36-1918Syaoia flowsheetFay Pascal [employer]ERER Work Phone: noms CWM FMStart: 71-00-6802Rzborq flowsheetFay Pascla [employer] P[employer]ERER Work Phone: noms CWM FMStart: 02-75-3128Ckxbkrngx Result Encounter Fay Pascal [employer] Work Phone: noms External Department UnsolicitedStart: 06-27-2023 End: 45-89-4156Tfgriy outpatient visit 25 minutesFay Pascal [employer]ERER Work Phone: noms CWM FMComment on above:Rectal bleeding (Primary Dx); Hypothyroidism, adult (CMS/HCC); Vitamin D deficiency; BMI 21.0-21.9, adult; Heart murmurStart: 05-10-2023 End: 82-67-4526Gwuzdprtr Result EncounterPhoenix Garner MD Work Phone: noms External Department UnsolicitedStart: 05-10-2023 End: 70-92-2511Sciqmpksg Result EncounterPhoenix Garner MD Work Phone: noms External Department UnsolicitedStart: 07-30-2022 End: 72-92-3576qnycelwposVXKDSFO SANKOVICFacility:[facility] Start: 07-30-2022 End: 95-96-0166Xphtvnq encounter procedureLorraine Mckinley PA-C Work Phone: colorectal SurgeryComment on above:Rectal discharge (Primary Dx)Start: 05-09-2022 End: 45-10-7906qffpwdavcvEG [place] A NADERERFacility:B3Fwivf: 10-18-2021 End: 93-93-1145fhrjypcnzeHJ [place] A NADERERFacility:H0Kgaiy: 10-10-2021 End: 58-14-9490winhlkbolpMistz [place] Other [employer] Other Start: 69-11-5237Jtgxwu outpatient visit 40 minutes Panda SantosTwin City Hospital SouthStart: 07-18-2021 End: 25-58-9076zfjtgorbcfGgqom Hykes Other [place] Other Start: 26-71-5869Uxzsjx outpatient visit 15 minutes Panda Lopez GastroenterologyStart: 06-20-2021 End: 32-25-5938zqerikrnphHmlbw Hykes Other [place] [employer] Other Start: 30-96-0377Icyvagsed encounterDavid HykesFPG GastroenterologyStart: 06-15-2021 End: 20-97-6759oifbnzrmhtZuavb Hykes Other [employer] Other Start: 16-58-0038Xxwora outpatient visit 25 minutes Panda HykesFPG GastroenterologyStart: 05-31-2021 End: 96-48-5910vmirnguojmDD [place]EN[place] A NADERERFacility:I6Zpqdi: 05-02-2021 End: 62-25-9306ukwdwcfrhjXlqzv Hykes Other [place] Other Start: 80-97-7894Sohtzetkm encounterDavid HykesFPG GastroenterologyStart: 05-01-2021 End: 61-32-7075snunytxxgjGwjcd Hykes Other [employer],SLCran[employer], [employer] Other Start: 13-63-4301Pihgnibeu encounterDavid HykesFPG GastroenterologyStart: 04-10-2021 End: 27-36-7501qjnbkjqoenJqujr Hykes Other [employer] Other Start: 41-95-3378Vwvdtpmly encounterDavid HykesFPG GastroenterologyStart: 28-62-6486Ismixbuqc encounterDavid HykesFPG GastroenterologyStart: 91-38-2047Yjqlqx outpatient visit 15 minutesJennifer KearneyFPG [facility] Procedures DateProcedureProcedure DetailPerforming ClinicianStart: 40-26-5045PCM CBC WITH AUTO DIFFLisa Naida [employer]UCC[employer] P[employer]ERER Work Phone: Start: 48-26-3972MUU HEMOGLOBIN F0ZGrsy Aicrebeccaz STUCCO PLASTERER Work Phone: Start: 05-19-6114Nqadh fela species direct probe tq Kalin Golden DIVISION SERGEANT - CNM Work Phone: Start: 93-29-9097GPDM VAGINITIS DNA PROBEGeneric External Data ProviderStart: 60-89-0794HWQA VAGINITIS DNA PROBEGeneric External Data ProviderStart: 50-37-8826XM TOMOSYNTHESIS SCREENING BILisa Federicaz [employer] Work Phone: Start: 49-62-2555JeouzilpqffAiuq Aichholz [employer] Work Phone: Start: 03-59-7404DZU THYROID STIM HORMONELisa Aichholz [employer] Work Phone: Start: 24-48-1315Whsik radiography of pelvisMD Bright Mccall II Work Phone: Start: 07-07-3434R-ray of right knee, four viewsMD Bright Mccall II Work Phone: Start: 86-07-3269WO ECHO DOPPLER COMPLETELisa Aichholz [employer] Work Phone: Start: 15-57-2491AqtbvsrxctzUvuo Aichholz [employer] Work Phone: Start: 41-79-0334UAY CBC WITH AUTO DIFFLisa Aichholz [employer] Work Phone: Start: 13-22-5347VA TOMOSYNTHESIS SCREENING Oscar Garner MD Work Phone: Start: 53-60-7043MhztkzroltiXglp Aichholz [employer] Work Phone: Start: 24-39-6040NqrzaxekdmyQalo Aichholz [employer] Work Phone: Start: 94-45-6829FqpyfncbrgfDzaeutt NILL Start: 51-55-3654MoaiycwcuruazeviaclkpmxrgxKgkmpca NILL Start: 05-78-7576MqjyfseiutgAvrtusy NILL Arthroscopy of kneeMichael NILL Arthroscopy of shoulderMichael NILL Bladder excisionMichael NILL Comment on above:right upper backColonoscopyMichael NILL LaparoscopyMichael NILL Ligation of fallopian tubeMichael NILL Plan of Treatment DateCare ActivityDetailAuthorStart: 91-17-4716Ofjhnmonj for malignant neoplasm of colonNOMS HealthcareStart: 28-14-3220Njjwkotpk for malignant neoplasm of colonNOMS HealthcareStart: 48-14-8014Gfzpuhmbqui Syncytial Virus (RSV) or age 60 yrs+ (1 - 1-dose 75+ series)Respiratory Syncytial Virus (RSV) or age 60 yrs+ (1 - 1-dose 75+ series)Bon [facility]Start: 01-17-2026 End: 54-40-5664Xnmeiwa encounter fgwzacfox91/31/2026 10:30 AM EDT Office Visit [facility] [address] [place] [address] Fay Pascal, DELMY [address] [place] [address] [facility] [facility] FMStart: 08-26-2026Medicare Annual Wellness (AWV) Medicare Annual Wellness (AWV)[facility] HealthcareStart: 75-57-2706Vyzuxlokkp Screen Depression ScreenBon [facility] HospitalStart: 05-11-2025 End: 61-44-6882HPB Skeletal system Views for bone densityDEXA bone density Imaging Routine Osteoporosis, postmenopausal Expected: 05/11/2025 (Approximate), Expires: 01/12/2026N[facility]S HealthcareComment on above:Expected: 05/11/2025 (Approximate), Expires: 01/12/2026Start: 05-11-2025 End: 10-17-5935KW Breast - bilateral ScreeningBilateral screening mammogram Imaging Routine Encounter for screening mammogram for malignant neoplasm of breast Expected: 05/11/2025 (Approximate), Expires: 03/14/2026[facility] Work Phone: Comment on above:Expected: 05/11/2025 (Approximate), Expires: 03/14/2026Start: 62-42-2261Vfuvgxtkn for malignant neoplasm of breast MammogramNOVT HealthcareStart: 04-13-2025 End: 68-60-0273Gxixyfz encounter nmcgryqof62/25/2025 9:40 AM EST Office Visit [facility] [address] [place] [address] Fay Pascal NP [address] [place] [address] [facility] FMStart: 01-12-2025 End: 592426-yhwvnilxsvcwin D3 [Mass/volume] in Serum or PlasmaVitamin D 25 hydroxy Lab Routine Vitamin D deficiency Expected: 01/12/2025 (Approximate), Expires: 01/12/2026[facility] HealthcareComment on above:Expected: 01/12/2025 (Approximate), Expires: 01/12/2026Start: 01-12-2025 End: 97-74-6970JRE W Auto Differential panel - BloodCBC and differential Lab Routine Obstructive sleep apnea syndrome Hypothyroidism, adult Expected: (Approximate), Expires: 01/12/2026[facility] HealthcareComment on above: Expected: 01/12/2025 (Approximate), Expires: 01/12/2026Start: 01-12-2025 End: 96-95-8410Bfseegcvffrvg metabolic 2000 panel - Serum or PlasmaComprehensive metabolic panel Lab Routine Dyslipidemia Osteoporosis, postmenopausal Vitamin D deficiency Prediabetes Hypothyroidism, adult Expected: 01/12/2025 (Approximate), Expires: 01/12/2026[facility] HealthcareComment on above:Expected: 01/12/2025 (Approximate), Expires: 01/12/2026Start: 01-12-2025 End: 07-26-3296Aorlixogluydel 2D completeEchocardiogram 2D complete Echocardiography Routine Heart murmur Nonrheumatic aortic valve insufficiency Expected: 01/12/2025 (Approximate), Expires: 01/12/2027[facility] HealthcareComment on above:Expected: 01/12/2025 (Approximate), Expires: 01/12/2027Start: 01-12-2025 End: 89-14-5478Evvcuugguw A1c/Hemoglobin.total in BloodHemoglobin A1c Lab Routine Prediabetes Expected: 01/12/2025 (Approximate), Expires: 01/12/2026[facility] HealthcareComment on above:Expected: 01/12/2025 (Approximate), Expires: 01/12/2026Start: 01-12-2025 End: 91-30-5523Wlvji 1996 panel - Serum or PlasmaLipid panel Lab Routine Dyslipidemia Expected: 01/12/2025 (Approximate), Expires: 01/12/2026[facility] HealthcareComment on above:Expected: 01/12/2025 (Approximate), Expires: 01/12/2026Start: 01-12-2025 End: 28-66-0761Xxuecxbzazh [Units/volume] in Serum or PlasmaTSH Lab Routine Hypothyroidism, adult Expected: 01/12/2025 (Approximate), Expires: 01/12/2026 [facility] HealthcareComment on above:Expected: 01/12/2025 (Approximate), Expires: 01/12/2026Start: 01-12-2025 End: 97-93-2148Gdtfvrjja (T4) free [Mass/volume] in Serum or PlasmaT4, free Lab Routine Hypothyroidism, adult Expected: 01/12/2025 (Approximate), Expires: 01/12/2026[facility] HealthcareComment on above:Expected: 01/12/2025 (Approximate), Expires: 01/12/2026Start: 01-12-2025 End: 62-01-4288Saivtoajxfhymgdm (T3) Free [Mass/volume] in Serum or PlasmaT3, free Lab Routine Hypothyroidism, adult Expected: 01/12/2025 (Approximate), Expires: 01/12/2026[facility] HealthcareComment on above:Expected: 01/12/2025 (Approximate), Expires: 01/12/2026Start: 01-12-2025 End: 05-01-3141Hatnehj encounter xaltdnpcd19/26/2025 10:00 AM EDT Office Visit [facility] [address] [place] [address] Fay Pascal, DELMY [address] [place] [address] [facility] FMStart: 08-20-2025Medicare Annual Wellness (AWV) Medicare Annual Wellness (AWV)[facility] HealthcareStart: 11-93-9901Uedqtjdng vaccinationFlu vaccine (Season Ended)[facility] HealthcareStart: 09-29-2024 End: 29-72-4129Bzkxplv encounter /13/2025 9:30 AM EDT Procedure Visit [facility] [address] [place] [phone] Melyssa Dickerson DPM [address] [place] [address] NOMS PODIATRYStart: 71-51-5362Kyekrh Wellness Visit (Medicare)Annual Wellness Visit (Medicare)[facility] HealthcareStart: 07-22-2024 End: 20-41-3346Ksjanlhfpha [Units/volume] in Serum or PlasmaTSH Lab Routine Hypothyroidism, adult ([facility]) Expected: 07/22/2024 (Approximate), Expires: 04/23/2025[facility] Work Phone: Comment on above:Expected: 07/22/2024 (Approximate), Expires: 04/23/2025Start: 07-22-2024 End: 29-30-8389Mbbfipgja (T4) free [Mass/volume] in Serum or PlasmaT4, free Lab Routine Hypothyroidism, adult (CMS/HCC) Expected: 07/22/2024 (Approximate), Expires: 04/23/2025[facility] HealthcareComment on above:Expected: 07/22/2024 (Approximate), Expires: 04/23/2025Start: 06-22-2024 End: 55-22-5748Jttsmqj encounter anmhnbkcf33/03/2025 9:00 AM EST Office Visit [facility] [address] [place] [address] Naida Fay, [employer] [address] [place] [address] [facility] FMStart: 79-02-0507Scnlzbxry for malignant neoplasm of breastNOVT HealthcareStart: 05-08-2024 End: 68-83-1394KQ Breast - bilateral ScreeningBilateral screening mammogram Imaging Routine Encounter for screening mammogram for malignant neoplasm of breast Expected: 05/08/2024 (Approximate), Expires: 03/08/2025[facility] Comment on above:Expected: 05/08/2024 (Approximate), Expires: 03/08/2025Start: 24-27-1870Btwda radiography of pelvisXR pelvis 1-2VPremier Health Atrium Medical Centertart: 94-52-1074U-ray of right knee, four viewsXR knee RT 4V*[facility] Centertart: 34-43-0649FN Knee - right 4 ViewsPremier Health Atrium Medical Centertart: 38-47-6324VC Pelvis 1 or 2 ViewsPremier Health Atrium Medical Centertart: 02-19-2024 End: 05-94-1648Bubqojs encounter procedureNOMS M FMComment on above:Arrived Start: 55-96-9006LRRIX-19 Vaccine ( season)COVID-19 Vaccine ( season)[facility] HealthcareStart: 01-07-2024 End: 42-90-5124Zsnqytrekiiaod 2D completeEchocardiogram 2D complete Echocardiography Routine Heart murmur Expected: 01/07/2024 (Approximate), Expires: 01/06/2026[facility] HealthcareComment on above:Expected: 01/07/2024 (Approximate), Expires: 01/06/2026Start: 01-07-2024 End: 54-83-3069Bneqqviqbrk [Units/volume] in Serum or PlasmaTSH Lab Routine Hypothyroidism, adult (CMS/HCC) Expected: 01/07/2024 (Approximate), Expires: 01/06/2025[facility] Work Phone: Comment on above:Expected: 01/07/2024 (Approximate), Expires: 01/06/2025Start: 01-07-2024 End: 69-81-2162Jbuvmcrxp (T4) free [Mass/volume] in Serum or PlasmaT4, free Lab Routine Hypothyroidism, adult (CMS/HCC) Expected: 01/07/2024 (Approximate), Expires: 01/06/2025[facility] HealthcareComment on above:Expected: 01/07/2024 (Approximate), Expires: 01/06/2025Start: 01-07-2024 End: 35-09-3830Ecbwjfy encounter ljpnednty01/20/2024 10:30 AM EDT Office Visit [facility] [address] [place] [address] Fay Pascal NP [address] [place] [address] Hypothyroidism, adult (CMS/HCC) (Primary Dx); Encounter for screening mammogram for malignant neoplasm of breastNONATIVIDAD MEDICAL CENTERComment on above: Hypothyroidism, adult (CMS/HCC) (Primary Dx); Encounter for screening mammogram for malignant neoplasm of breastStart: 08-17-2024Medicare Annual Wellness (AWV)Medicare Annual Wellness (AWV)[facility] HealthcareStart: 76-37-0267Owxstjjk identified in Urine by [facility] Hospitaltart: 07-31-2023 End: 75-71-4242Pbmegva encounter fvjoctizy32/13/2024 9:20 AM EDT Office Visit [facility] [address] [place] [address] Fay Pascal, DELMY [address] [place] [address] [facility] FMStart: 06-27-2023 End: 765565-tssqyncfqwpunx D3 [Mass/volume] in Serum or PlasmaVitamin D 25 hydroxy Lab Routine Vitamin D deficiency Expected: 06/27/2023 (Approximate), Expires: 06/27/2024[facility] Work Phone: Comment on above:Expected: 06/27/2023 (Approximate), Expires: 06/27/2024Start: 06-27-2023 End: 16-07-3311QFK W Auto Differential panel - BloodCBC and differential Lab Routine Rectal bleeding Expected: 06/27/2023 (Approximate), Expires: 06/27/2024 [facility] HealthcareComment on above:Expected: 06/27/2023 (Approximate), Expires: 06/27/2024Start: 06-27-2023 End: 62-96-6414Fnmjvgokpqjfc metabolic 2000 panel - Serum or PlasmaComprehensive metabolic panel Lab Routine Hypothyroidism, adult (CMS/HCC) Vitamin D deficiency Rectal bleeding Expected: 06/27/2023 (Approximate), Expires: 06/27/2024[facility] HealthcareComment on above:Expected: 06/27/2023 (Approximate), Expires: 06/27/2024Start: 06-27-2023 End: 72-51-6109Xovdjpibkvh sedimentation rateSedimentation rate, automated Lab Routine Rectal bleeding Expected: 06/27/2023 (Approximate), Expires: 06/27/2024 [facility] HealthcareComment on above:Expected: 06/27/2023 (Approximate), Expires: 06/27/2024Start: 06-27-2023 End: 53-71-6324Mqphxfwx [Mass/volume] in Serum or PlasmaFerritin Lab Routine Rectal bleeding Expected: 06/27/2023 (Approximate), Expires: 06/27/2024[facility] HealthcareComment on above:Expected: 06/27/2023 (Approximate), Expires: 06/27/2024Start: 06-27-2023 End: 72-03-2326Ngfo and Iron binding capacity panel - Serum or PlasmaIron level Lab Routine Rectal bleeding Expected: 06/27/2023 (Approximate), Expires: 06/27/2024[facility] HealthcareComment on above:Expected: 06/27/2023 (Approximate), Expires: 06/27/2024Start: 06-27-2023 End: 54-47-0653Ayvucuvzkhf [Units/volume] in Serum or PlasmaTSH Lab Routine Hypothyroidism, adult ([facility]/HCC) Expected: 06/27/2023 (Approximate), Expires: 06/27/2024[facility] HealthcareComment on above:Expected: 06/27/2023 (Approximate), Expires: 06/27/2024Start: 06-27-2023 End: 05-47-3085Kcyqelrqw (T4) free [Mass/volume] in Serum or PlasmaT4, free Lab Routine Hypothyroidism, adult (CMS/HCC) Expected: 06/27/2023 (Approximate), Expires: 06/27/2024[facility] HealthcareComment on above:Expected: 06/27/2023 (Approximate), Expires: 06/27/2024Start: 06-27-2023 End: 03-03-5167Oyjbsavjlzvgjedj (T3) Free [Mass/volume] in Serum or PlasmaT3, free Lab Routine Hypothyroidism, adult (CMS/HCC) Expected: 06/27/2023 (Approximate), Expires: 06/27/2024[facility] HealthcareComment on above:Expected: 06/27/2023 (Approximate), Expires: 06/27/2024Start: 06-27-2023 End: 44-49-4439Cypqzfn encounter cvubiimcs88/08/2024 9:40 AM EST Office Visit [facility] [address] [place] [address] Fay Pascal NP [address] [place] [address] Hypothyroidism, adult (CMS/HCC) (Primary Dx); Vitamin D deficiencyNOOU MEDICAL CENTER – EDMOND FMComment on above:Hypothyroidism, adult (CMS/HCC) (Primary Dx); Vitamin D deficiencyStart: 16-62-3256Cnjpldhce vaccinationInfluenza Vaccine (#1) [facility] HospitalStart: 35-63-6702VTGSEXS DIRECTIVE DISCUSSIONADVANCE DIRECTIVE DISCUSSIONMercy Health St. Anne Hospitaltart: 24-51-7600ATRELVVCKM ASSESSMENTDEPRESSION ASSESSMENTMercy Health St. Anne Hospitaltart: 00-49-6629Rolysumpy vaccinationINFLUENZA (#1) [facility] Hospitaltart: 69-69-9049WUET DENSITYBONE DENSITYMercy Health St. Anne Hospitaltart: 00-18-9535FMKTPSTTFQCC: 65+ (1 - PCV)PNEUMOCOCCAL: 65+ (1 - PCV)[facility] Start: 11-01-2018Medicare Annual Wellness (AWV)Medicare Annual Wellness (AWV) [facility] HospitalStart: 14-62-8840Gnmxstcxw for osteoporosisDEXA (modify frequency per FRAX score)[facility] HealthcareStart: 04-07-7923Fmjmwvka vaccine (1 of 2)Shingles vaccine (1 of 2)[facility] HealthcareStart: 49-87-7279MXSRIPGN VACCINE (1 of 2)SHINGRIX VACCINE (1 of 2)[facility] Hospitaltart: 2000 COLOGUARD (FIT-DNA)COLOGUARD (FIT-DNA)[facility]: [address] Anne Hospitaltart: 45-70-8266XDJSSVTMFS CANCER SCREENINGCOLORECTAL CANCER SCREENINGMercy Health St. Anne Hospitaltart: 66-90-6905VH COLONOGRAPHYCT COLONOGRAPHYMercy Health St. Anne Hospitaltart: 37-60-5833DZYJQVAJ SCREEN DIABETES SCREENMercy Health St. Anne Hospitaltart: 78-79-9610HYHOK OCCULT BLOODFECAL OCCULT BLOODMercy Health St. Anne Hospitaltart: 63-78-2289ONGKU SCREENLIPID SCREENPremier Health [facility] Start: 46-83-3602Hwgbhkugd for malignant neoplasm of colonBon [facility] HospitalStart: 00-24-7008JEJSXMYEOUWADULMKYQTKFWNZBYzgradvln ClinicStart: 75-11-7790Csord panelLipidsBon [facility] Hospitalart: 41-64-1579Lgrbwjzgpvh MAMMOGRAMMercy Health St. Anne Hospitaltart: 72-75-8846RLbT/Tdap/Td vaccine (1 - Tdap) DTaP/Tdap/Td vaccine (1 - Tdap)[facility] HealthcareStart: 18-88-5391Odbem microalbumin profileDTAP,TDAP,TD (1 - Tdap)[facility] Hospitaltart: 1973 HEPATITIS C SCREENINGHEPATITIS C SCREENINGMercy Health St. Anne Hospitaltart: 1973 Hepatitis C screeningHepatitis C screenBon [facility]: 1967 Depression ScreenDepression ScreenBon [facility] Hospitalart: 01[birth year]15-1956 COVID-19 VACCINE (#1)COVID-19 VACCINE (#1)[facility]tart: 1955 Screening for malignant neoplasm of colonVAL[facility]IEW [facility] Healthcare End: 83-24-5269Cxunqyyfx DNA ProbeMary Washington HealthcareComment on above:1 Occurrences starting 08/20/2024 until 08/20/2024 Immunizations Immunization DateImmunizationNotesCare UwnlluskEplbyqoc70-34-8931Pqaylihaqcfs Conjugate PCV 20Lisa Aichholz [employer] Work Phone: [facility] HospitalQihdhiqezt72-46-2704Kgdysig -40 mgMASS-ACTIVE [employer]arney Other [employer] Other [id number] -40 [employer] Other [employer] Other [id number]-CgzOasdvgaa [place] Other [employer] Other [id number] conjugate vaccine, 13 valent Fay Aichholz [employer] Work Phone: noCox NorthOvilxevngj94-71-8010ooxrklvrecsw polysaccharide vaccine, 23 valentLisa Aichholz [employer] Work Phone: [facility] HospitalNEGATED: Highlighted row has not occurred!13-39-6236kxxosfznf virus vaccine, unspecified formulationMichael NILL [facility] [place] Payers DatePayer CategoryPayerPolicy [id number]-qpm [id number] [id number] Health Insurance [id number] [id number] [id number] Health [id number] 2.16.840.0.83033[id number] 2.16840.1.668353.3.5[id number] 2.16840.1.634248.3.57[id number] 2.16840.1.037907.3.57[id number] 2.16840.1.684060.3.579.[id number] 2.16.840.1.349452.3.57[id number] 2.16840.1.933939.3.57[id number] 2.16.840.1.469594.3.57[id number] 2.16840.1.250459.3.579.2.[id number] 2.16.840.1.178968.3.57[id number] 2.16840.1.28[id number] 2.0.1.279990.3.579.2.531 [id number] 2.840.1.3[id number] 2.840.1.139117.3.579.2.531 Social History DateTypeDetailFacilityStart: 06-26-2023 End: 02-37-0010Gqb Assigned At BirthVAL[facility] HealthcareStart: 07-30-2022 End: 15-19-2987Wckrnaf smoking status NHISNever smoked tobaccoPremier Health [facility] Start: 07-30-2022 End: 32-61-3470Azffzsk use and exposureSmokeless tobacco non-userMercy Health St. Anne Hospitaltart: 07-30-2022 End: 27-23-4246Dmydtyx intakeEx-drinker (finding)[facility] Hospitaltart: 67-33-8622Chk Assigned At BirthNot on fileMercy Health St. Anne Hospitaltart: 06-26-2023 End: 44-82-4271Icbdowz of Social functionNOVT HealthcareWithin the last year, have you been afraid of your partner or ex-partner?NoNOMS HealthcareStart: 70-68-9092Fjhohde Restorationism ServicesNot on [facility] HealthcareAre you now , , , , never or living with a partner? MarriedNOMS HealthcareHow often to you have a drink containing alcohol?NeverNOMS HealthcareDo you feel stress - tense, restless, nervous, or anxious, or unable to sleep at night because yourmind is troubled all the time - these days [OSQ]To some extentNOMS Healthcare(I/We) worried whether (my/our) food would run out before (I/we) got money to buy more.Never trueNOVT HealthcareStart: 06-25-2023 Alcohol Commentcoffee 1-2 cups per dayVALLEY VIEW MEDICAL CENTER HealthcareStart: 42-33-4831Gurnpxn smoking status NHISEx-smoker (finding)[facility] Centertart: 60-98-7886Oxo Assigned At [facility] Hospitaltart: 08-20-2024 End: 26-86-3109Ymfwyshvg beverage intakeCurrent drinker of alcohol (finding)[facility] CenterHealthkart [facility] HospitalChoister St. [facility] CampusStart: 87-69-1777Kvlmvfa CommentoccBon [facility] Start: 16-59-2204AqpTjxqze (finding)[facility] HealthcareTobacco smoking status NHISTobacco smoking consumption unknownRipley County Memorial Hospital Functional Status YgybOtjvfqvslcJkwflnQxzkbqgf84-99-1323Uoafljm Health Questionnaire 2 item (PHQ- 2) [Reported][facility] HospitalVxlwbkfmmb30-70-9796Bqiioaeta depression scale (GDS).short version [facility] HospitalKglsiqdfsb59-25-9794Hiu difficult have these problems made it for you to do your work, take care of things at home, or get along with other people?Not difficult at all 01/07/2024 10:38 AM Taniya Finnegan MA Not difficult at allRipley County Memorial HospitalMologpldez05-11-8746Ylnwktdvcv StatusN/AGeneral Surgery Rcqhjsoc75-44-5691Uecgyth Health Questionnaire 2 item (PHQ-2) [Reported][facility] HospitalPgzqshrkru85-78-6180Shmil score [AUDIT-C]0 06/26/2023 5:35 PM EST Mychart, GenericRipley County Memorial HospitalLdctafjuzq20-59-3640Lgz often do you have a drink containing alcohol?Never 06/26/2023 5:35 PM EST Mychart, Generic NeverRipley County Memorial Hospital 87-16-1547Ubhrigbexc statusPatient does not drink 06/26/2023 5:35 PM EST Mychart, Generic Patient does not drinkRipley County Memorial HospitalOdlvkcwoxf06-83-1213Pqn often do you have 6 or more drinks on 1 occasion?Never 06/26/2023 5:35 PM EST Mychart, Generic [facility] Clinical Notes 02-23-2021 to 03-29-2025 Note Date & CnnoGmbqHqolqikw40-49-1965 NoteSubjective Patient ID: Alesha Bonilla is a 69 y.o. female who presents for Follow-up (Patient is here today for a follow up appointment . Patient recently had AGA. Patient denies chest pain, SOB/LYNCH, edema, dizziness/lightheaded ), Valve Disorder (Non-rheumatic aortic valve insufficiency/), and Palpitations (Palpitations/racing heart 1 time since last visit). I'm doing good No chest pain or shortness of breath. Recent AGA shows moderately severe MR and moderate AR. I reviewed images with Mrs. Bonilla. TTE show normal LV volumes Palpitations Review of Systems Cardiovascular: Positive for palpitations. Objective Visit Vitals BP 99/65 (BP Location: Right arm, Patient Position: Sitting) Pulse 71 Physical Exam Constitutional: Appearance: Normal appearance. She is normal weight. HENT: Head: Normocephalic and atraumatic. Cardiovascular: Rate and Rhythm: Regular rhythm. Tachycardia present. Pulses: Carotid pulses are 2+ on the right side and 2+ on the left side. Radial pulses are 2+ on the right side and 2+ on the left side. Heart sounds: Murmur heard. Systolic murmur is present with a grade of 3/6. Decrescendo diastolic murmur is present with a grade of 2/4. No friction rub. No gallop. Pulmonary: Effort: Pulmonary effort is normal. Breath sounds: Normal breath sounds. Musculoskeletal: Right lower leg: No edema. Left lower leg: No edema. Skin: General: Skin is warm and dry. Neurological: General: No focal deficit present. Mental Status: She is alert and oriented to person, place, and time. Psychiatric: Mood and Affect: Mood normal. Behavior: Behavior normal. Thought Content: Thought content normal. Assessment/Plan Ms. Bonilla has moderately severe MR due to mitral valve prolapse and moderate aortic insufficiency. I have advised R and L heart cath with plan for referral for mitral valve repair and or aortic valve replacement with bioprosthetic heart valve Diagnosis Plan 1. Nonrheumatic mitral valve regurgitation Case Request Research Project Coordinator: Coronary angiography, Left ventriculography, Aortic root angiogram Basic metabolic panel CBC and differential 2. Nonrheumatic aortic valve insufficiency Case Request Research Project Coordinator: Coronary angiography, Left ventriculography, Aortic root angiogram Basic metabolic panel CBC and differential Orders Placed This Encounter Procedures Basic metabolic panel Standing Status: Future Expected Date: 03/29/2025 Expiration Date: 03/29/2026 Release to Patient: Immediately CBC and differential Standing Status: Future Expected Date: 03/29/2025 Expiration Date: 03/29/2026 Release to Patient: Immediately No results found for this or any previous visit (from the past 36 hours). Follow up in about 6 weeks (around 05/10/2025) for Recheck.[facility]10-15-2025 NoteSubjective Patient ID: Alesha Bonilla is a [...] in about 4 weeks (around 03/31/2025) for Recheck.[facility]08-26-2025 History of Present illness Narrative* Fay [...] that manages your RIVERA: documented in this [facility]08-26-2025 Instructions* Patient Instructions* Fay Pascal NP - 01/12/2025 10:00 AM EDT Get labs fasting Mammogram and bone density in April 2025 Will order ultrasound of heart, I will fax order [facility] they should call you documented in this [facility]05-13-2025 History of Present illness Narrative* Melyssa Dickerson DPM - 09/29/2024 9:30 AM EDT Images from [...] understanding. Melyssa Dickerson DPM documented in this encounterRipley County Memorial [id number] Instructions* Patient Instructions* Melyssa Dickerson DPM - 09/29/2024 9:30 AM EDT Topical care measures as noted documented in this encounterRipley County Memorial [id number] NoteSubjective Patient ID: Alesha Bonilla is a [...] (Oral) Physical Exam Exam conducted with a chairman ceo present. Constitutional: Appearance: Normal appearance. She is [...] 36 hour(s)). No follow-ups on file. Marva Shcaefer, MS4 [facility] The above patient was seen with the medical student and the physical exam was done by myself with the student present, assisting and observing. The plan was discussed in detail with the student and the patient.[facility]04-28-2025 NoteReceived referral for rectal bleeding, called patient to schedule an appt with Dr. Jewell. Patient states she was unaware that referral was being sent. She will call back to schedule when ready. Referral scanned in.[facility]10-02-2024 History of Present illness Narrative* Fay [...] swets- she was reading an article on [employer] about the medication causing night sweats could be the cause of heart or taking too much/toohigh of dose of her levothyroxine Pt stopped taking the calcium (time release) she started taking just a regular calcium and possiblyat 600mg Pt states that this appt is about the echo and thyroid * Fay Pascal NP - 02/19/2024 9:00 AM EDT Images from [...] Basal cell carcinoma 06/27/2023 Childbirth x3 Dyslipidemia ([facility]) 06/27/2023 Gastroesophageal reflux disease 06/27/2023 Hypothyroidism, adult ([facility]) 06/27/2023 Lichenification and lichen simplex chronicus 06/27/2023 Osteoarthritis 06/27/2023 Osteoporosis, 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[facility]) 06/27/2023 Prediabetes 06/27/2023 Primary osteoarthritis of right [...] Does not wear PAP documented in this encounterRipley County Memorial [id number] History of Present illness Narrative* Fay Pascal [...] 01/07/2024 10:59 AM EDTAssociated Problem(s): Hypothyroidism, adult ([facility]) Will increase thyroid dose back to 100mcg [...] Basal cell carcinoma 06/27/2023 Childbirth x3 Dyslipidemia ([facility]) 06/27/2023 Gastroesophageal reflux disease 06/27/2023 Hypothyroidism, adult ([facility]) 06/27/2023 Lichenification and lichen simplex chronicus 06/27/2023 Osteoarthritis 06/27/2023 Osteoporosis, 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[facility]) 06/27/2023 Prediabetes 06/27/2023 Primary osteoarthritis of right knee 06/27/2023 Right hip pain 06/27/2023 SCC (squamous cell carcinoma) 06/27/2023 Vitamin D deficiency 06/27/2023 Past Surgical History: Procedure Laterality Date COLONOSCOPY 2014 COLONOSCOPY 04/03/2021 colonoscopy / EGD - Dr Hykes KNEE SURGERY Right OTHER SURGICAL HISTORY Lumpectomy, [...] up yearly and prn documented in this encounterRipley County Memorial [id number] NoteChief Complaint consultation for rectal bleeding HPI Staff [...] 50,000 intl units (1.25 mg) oral capsule, 54367 International_Unit= 1 cap(s), Oral, qWeek Allergies No Known Allergies No Known Medication Allergies Social History Alcohol - Denies Alcohol Use, 07/10/2023 Substance Abuse - Denies Substance Abuse, 07/10/2023 Tobacco Never (less than 100 in lifetime) Tobacco Use:. Never Smokeless Tobacco Use:., 07/10/2023 Family History Liver cancer: Brother. Primary yeimi (more content not included)...[facility] HospitalComment on above:Result Comment: Electronically Signed By: MERCY MARTINEZ, Jose M Pretty\Date and Time Signed: 07/10/23 16:43 [id number] History of Present illness Narrative * Fay [...] Basal cell carcinoma 06/27/2023 Childbirth x3 Dyslipidemia ([facility]) 06/27/2023 Gastroesophageal reflux disease 06/27/2023 Hypothyroidism, adult ([facility]) 06/27/2023 Lichenification and lichen simplex chronicus 06/27/2023 Osteoarthritis 06/27/2023 Osteoporosis, 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[facility]) 06/27/2023 Prediabetes 06/27/2023 Primary osteoarthritis of right [...] ECHO after done with rectal bleeding * TANIYA RESTREPO - 06/27/2023 9:40 AM EST Wants to ask about thyroid medication and cologuard documented in this encounterRipley County Memorial [id number] Instructions* Patient Instructions* Lorraine Mckinley PA-C - [...] needed/ if no improvement documented in this encounterPrem[facility] History and physical note * Lorraine Mckinley [...] CT scan,MRI and colonoscopy ( brought to assistant front office manager to be scanned in) were completed [...] was otherwise normal. Patient tolerated procedure well. Russian Language Instructor present: Yes, Kristin Fuentes MA Diagnostic tests reviewed for today's visit: Colonoscopy Report CT imaging MRI imaging All outside imaging and records were reviewed with the patient during consultation. Assessment Assessment and Plan: Alesha Bonilla is a 67 year old female who comes to [facility] for rectal mucous/ discharge. Upon [...] which included preparing to see the patient, [id number] patient care, completing clinical documentation, obtaining and/or reviewing separately obtained history, performing a medically appropriate examination, counseling and educating the pat ient/family/caregiver, and ordering medications, tests, or procedures. documented in this encounterPremier Health [facility]05-24-2022 Evaluation note* Encounter Date Diagnosis Assessment Notes [...] advised until euthyroidism is established and documented September,bstructive sleep apnea (adult) (pediatric) (ICD-10 - G47.33)She [...] forms September,ther1 hour and 10 minutes spent [id number] with the patient, the majority in counseling and education [facility] Other 03-01-2022 Evaluation note* Encounter Date Diagnosis Assessment Notes Treatment Notes Treatment Clinical Notes Jul, Irritable bowel syndrome with di arrhea (ICD-10 - K58.0) Jul,GERD (gastroesophageal reflux disease) (ICD-10 - K21.9) Jul,Liver hemangioma (ICD-10 - D18.03) Jul,ther REASSURANCE REPEAT RUQ U/S IN 4-6 MONTHS (IN RECALL) [facility] Other 02-01-2022 Evaluation note* Encounter Date Diagnosis Assessment Notes Treatment Notes Treatment Clinical Notes Jun, Liver lesion (ICD-10 - K76.9) [facility] Other 01-27-2022 Evaluation note* Encounter Date Diagnosis [...] without obstruction or gangrene (ICD-10 - K43.9) [facility] Other 11-22-2021 Evaluation note* Encounter Date Diagnosis Assessment Notes Treatment Notes Treatment Clinical Notes Mar, Diarrhea (ICD-10 - R19.7) Mar,Weight loss (ICD-10 - R63.4) [facility] Other 11-01-2021 Evaluation note* Encounter Date Diagnosis Assessment Notes Treatment Notes Treatment Clinical Notes Mar, Abdominal cramping (ICD-10 - R10 .9) Mar,iarrhea (ICD-10 - R19.7) [facility] Other 10-07-2021 Evaluation note* Encounter Date Diagnosis [...] reactions. Feb,eft hip pain (ICD-10 - M25.552) [facility] [employer] Other Evaluation + Plan note No data available for this section General Surgery [place] Evaluation noteNo InformationNortUPMC [facility] [employer] [facility]) Other Evaluation note* Diagnosis Rectal discharge- Primary Other symptoms involving digestive system documented in this encounter [facility]Evaluation [facility]* Diagnosis Rectal bleeding- Primary Hemorrhage of rectum and anus Hypothyroidism, adult ([facility]) Other specified acquired hypothyroidism Vitamin D deficiency BMI 21.0-21.9, adult Heart murmur Undiagnosed cardiac murmurs documented in this encounter [facility] HealthcareEvaluation note* Diagnosis Onset Date Resolution Status Dysuria noneactive [facility] Work Phone: Evaluation note* Diagnosis Hypothyroidism, adult (CMS/HCC)- Primary Other specified acquired hypothyroidism Heart murmur Undiagnosed cardiac murmurs Obstructive sleep apnea syndrome Obstructive sleep apnea (adult) (pediatric) documented in this encounter [facility] HealthcareEvaluation note* Diagnosis Hypothyroidism, adult ([facility])- Primary Other specified acquired hypothyroidism documented in this encounter [facility] HealthcareEvaluation noteNo assessment information availableSub[facility] Work [facility]: Evaluation note* Diagnosis Onset Date Resolution Status Deformity of right knee joint acutePrimary osteoarthritis of right kneeacute [facility] Work Phone: Evaluation note* Diagnosis Rectal bleeding- Primary Hemorrhage of rectum and anus Hypothyroidism, adult ([facility]) Other specified acquired hypothyroidism Vitamin D deficiency BMI 21.0-21.9, adult Heart murmur Undiagnosed cardiac murmurs Encounter for subsequent annual wellness visit (AWV) in Medicare patient- Primary Hypothyroidism, adult ([facility]/H[facility]) Other specified acquired hypothyroidism Encounter for screening mammogram for malignant neoplasm of breast Vitamin D deficiency Osteoporosis, 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[facility]) Senile osteoporosis Heart murmur Undiagnosed cardiac murmurs Obstructive sleep apnea syndrome Obstructive sleep apnea (adult) (pediatric) Hypothyroidism, adult ([facility])- Primary Other specified acquired hypothyroidism Heart murmur Undiagnosed cardiac murmurs Obstructive sleep apnea syndrome Obstructive sleep apnea (adult) (pediatric) Hypothyroidism, adult ([facility])- Primary Other specified acquired hypothyroidism documented in this encounter [facility] HealthcareEvaluation note* Diagnosis Encounter for subsequent annual wellness visit (AWV) in Medicare patient- Primary Hypothyroidism, adult ([facility]) Other specified acquired hypothyroidism Encounter for screening mammogram for malignant neoplasm of breast Vitamin D deficiency Osteoporosis, 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[facility]) Senile osteoporosis Heart murmur Undiagnosed cardiac murmurs Obstructive sleep apnea syndrome Obstructive sleep apnea (adult) (pediatric) documented in this encounter [facility] HealthcareEvaluation note* Diagnosis Rectal bleeding- Primary Hemorrhage of rectum and anus Hypothyroidism, adult ([facility]) Other specified acquired hypothyroidism Vitamin D deficiency BMI 21.0-21.9, adult Heart murmur Undiagnosed cardiac murmurs Encounter for subsequent annual wellness visit (AWV) in Medicare patient- Primary Hypothyroidism, adult ([facility]) Other specified acquired hypothyroidism Encounter for screening mammogram for malignant neoplasm of breast Vitamin D deficiency Osteoporosis, 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[facility]) Senile osteoporosis Heart murmur Undiagnosed cardiac murmurs Obstructive sleep apnea syndrome Obstructive sleep apnea (adult) (pediatric) Hypothyroidism, adult ([facility])- Primary Other specified acquired hypothyroidism Heart murmur Undiagnosed cardiac murmurs Obstructive sleep apnea syndrome Obstructive sleep apnea (adult) (pediatric) Hypothyroidism, adult ([facility])- Primary Other specified acquired hypothyroidism documented in this encounter [facility] HealthcareEvaluation note* Diagnosis Vaginal discharge Leukorrhea, not specified as infective documented in this encounter [facility]* Diagnosis Rectal bleeding- Primary Hemorrhage of rectum and anus Hypothyroidism, adult ([facility]) Other specified acquired hypothyroidism Vitamin D deficiency BMI 21.0-21.9, adult Heart murmur Undiagnosed cardiac murmurs Encounter for subsequent annual wellness visit (AWV) in Medicare patient- Primary Hypothyroidism, adult ([facility]) Other specified acquired hypothyroidism Encounter for screening mammogram for malignant neoplasm of breast Vitamin D deficiency Osteoporosis, 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[facility]) Senile osteoporosis Heart murmur Undiagnosed cardiac murmurs Obstructive sleep apnea syndrome Obstructive sleep apnea (adult) (pediatric) Hypothyroidism, adult ([facility])- Primary Other specified acquired hypothyroidism Heart murmur Undiagnosed cardiac murmurs Obstructive sleep apnea syndrome Obstructive sleep apnea (adult) (pediatric) Hypothyroidism, adult ([facility]) Other specified acquired hypothyroidism documented in this encounter [facility] HealthcareEvaluation note* Diagnosis Rectal bleeding- Primary Hemorrhage of rectum and anus Hypothyroidism, adult ([facility]) Other specified acquired hypothyroidism Vitamin D deficiency BMI 21.0-21.9, adult Heart murmur Undiagnosed cardiac murmurs Encounter for subsequent annual wellness visit (AWV) in Medicare patient- Primary Hypothyroidism, adult ([facility]) Other specified acquired hypothyroidism Encounter for screening mammogram for malignant neoplasm of breast Vitamin D deficiency Osteoporosis, 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[facility]) Senile osteoporosis Heart murmur Undiagnosed cardiac murmurs Obstructive sleep apnea syndrome Obstructive sleep apnea (adult) (pediatric) Hypothyroidism, adult ([facility])- Primary Other specified acquired hypothyroidism Heart murmur Undiagnosed cardiac murmurs Obstructive sleep apnea syndrome Obstructive sleep apnea (adult) (pediatric) Rectal bleeding- Primary Hemorrhage of rectum and anus documented in this encounter [facility] HealthcareEvaluation note* Diagnosis Vaginal discharge Leukorrhea, not specified as infective documented in this encounter [facility] HealthEvaluation note* Diagnosis Rectal bleeding- Primary Hemorrhage of rectum and anus Hypothyroidism, adult ([facility]) Other specified acquired hypothyroidism Vitamin D deficiency BMI 21.0-21.9, adult Heart murmur Undiagnosed cardiac murmurs Encounter for subsequent annual wellness visit (AWV) in Medicare patient- Primary Hypothyroidism, adult ([facility]) Other specified acquired hypothyroidism Encounter for screening mammogram for malignant neoplasm of breast Vitamin D deficiency Osteoporosis, 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[facility]) Senile osteoporosis Heart murmur Undiagnosed cardiac murmurs Obstructive sleep apnea syndrome Obstructive sleep apnea (adult) (pediatric) Hypothyroidism, adult ([facility])- Primary Other specified acquired hypothyroidism Heart murmur Undiagnosed cardiac murmurs Obstructive sleep apnea syndrome Obstructive sleep apnea (adult) (pediatric) Dermatophytosis of nail- Primary Dystrophic nail Other specified disease of nail Pain around toenail, left foot Pain around toenail, right foot Difficulty walking Difficulty in walking documented in this encounter [facility] HealthcareEvaluation note* Diagnosis Rectal bleeding- Primary Hemorrhage [...] specified acquired hypothyroidism documented in this encounter [facility] HealthcareEvaluation note* Diagnosis Rectal bleeding- Primary Hemorrhage [...] aortic valve insufficiency documented in this encounter [facility] general Narrative - Reported* Type Description Date Medical History high cholesterol Medical HistoryHypothyroidismSurgical Historymeniscus repairSurgical History rotator cuff repairSurgical Historylipoma removed from right shoulderSurgical Historyskin cancer removal from lipHospitalization Historysee above [facility] Other History general Narrative - Reported* Type Description Date Medical History high cholesterol Medical HistoryHypothyroidismMedical Historyobstructive sleep apneaSurgical Historymeniscus repairSurgical Historyrotator cuff repairSurgical Historylipoma removed from right shoulderSurgical Historyskin cancer removal from lip Hospitalization Historysee above [facility] Other Hospital Discharge instructions No data available for this section General Surgery [place] Progress note No data available for this section General Surgery [place] Reason for referral (narrative)* Consultation (Routine) - Pending ReviewSpecialtyDiagnoses / ProceduresReferred By ContactReferred To ContactGeneral Surgery Diagnoses Rectal bleeding Procedures CO OFFICE/OUTPATIENT NEW HIGH MDM 60 MINUTES Fay Pascal NP [address] [place] [address] Jose M Madrid MD [address] [place] [address], [address] [place] [address] Referral IDStatusReasonStart DateExpiration DateVisits RequestedVisits [id number] Review Specialty Services Required / [facility] Healthcare Summary Purpose Family History No Family History Records Found Relationship Condition Age at Onset Recorded Date/T sarita father Malignant neoplasm of lung Unknown brotherMalignant neoplasm of lungUnknownbrotherMalignant neoplasm of liver UnknownbrotherDeceasedUnknownfatherDeceasedUnknownfamily memberDeceasedUnknown Advance Directives No Advanced Directives Records Found [...] complete Fay Pascal NP [address] [place] [address] [facility] [address] [place] [address] Referral IDStatusReasonStart DateExpiration DateVisits RequestedVisits [id number] Perform Procedure / Additional Source Comments REASON FOR VISIT (unrecogniz ed section and content) ReasonCommentsNew PatientClear discharge from rectumReasonOnset DateCommentsMed [id number] careMarlene Maag 69yo New patient presents for nail care. [...] and content) DATE CREATED AUTHOR 05/17/2022 [facility] DATE CREATED AUTHOR AUTHOR'S ORGANIZ ATION 07/31/2022 [facility] DATE CREATED AUTHOR AUTHOR'S ORGANIZ ATION 08/06/2023 [facility] DATE CREATED AUTHOR AUTHOR'S ORGANIZ ATION 03/25/2024 [facility] DATE CREATED AUTHOR AUTHOR'S ORGANIZ ATION 09/11/2024 [facility] DATE CREATED AUTHOR AUTHOR'S ORGANIZ ATION 01/13/2025 [facility] DATE CREATED AUTHOR AUTHOR'S ORGANIZ ATION 04/01/2025 [facility] Source Comments (unrecognize d section and content) In the event this informatio n is protected by the Federal Confidentiality of Alcohol and Drug Abuse Patient Records regulations: The Federal rules restrict any use of the information to criminally investigate or prosecute any alcohol or drug abuse patient.[facility] Care Teams (unrecognized sec tion and content) [...] March 19, 2024 End: March 19, 2024F[facility] PascalUniversity [facility] Care ProviderActiveStart: March 19, 2024 End: March 19, 2024Team MemberRelationshipSpecialtyStart DateEnd Date Phoenix Garner [address] [place] [address] PCP - [facility] Medicine07/26/22Team MemberRelationshipSpecialtyStart DateEnd Date Phoenix Garner MD [address] [place] [address] PCP - [facility] Medicine06/18/23Team MemberRelationshipSpecialtyStart DateEnd Date Phoenix Garner MD [address] [place] [address] PCP - Generalmi Medicine06/18/23Team MemberRelationshipSpecialtyStart DateEnd Date Phoenix Garner MD [address] [place] [address] PCP - Generalmi Medicine06/18/23 Team Status: Active Member Role Status [...] Garner MD [address] [place] [address] PCP - Generalmily Medicine06/18/23Team MemberRelationshipSpecialtyStart DateEnd Date Phoenix Garner MD [address] [place] [address] PCP - [facility] Medicine06/18/23Team MemberRelationshipSpecialtyStart DateEnd Date Phoenix Garner MD [address] [place] [address] PCP - [facility] Medicine06/18/23 Team Status: Active Member Role Status Dates Bright Mccall II, MD Attending Provider Active Start: March 19, 2024 Team MemberRelationshipSpecialtyStart DateEnd Date Phoenix Garner MD [address] [place] [address] PCP - Generalmily Medicine06/18/23Team MemberRelationshipSpecialtyStart DateEnd Date Phoenix Garner MD [address] [place] [address] PCP - Generalmily Medicine06/18/23Team MemberRelationshipSpecialtyStart DateEnd Date Phoenix Garner MD [address] [place] [address] PCP - GeneralFamily Medicine06/18/23Team MemberRelationshipSpecialtyStart DateEnd Date Phoneix Garner MD [address] [place] [address] PCP - GeneralFamily Medicine06/18/23Team MemberRelationshipSpecialtyStart DateEnd Date Phoenix Garner MD [address] [place] [address] PCP - GeneralFamily Medicine06/18/23Team MemberRelationshipSpecialtyStart DateEnd Date Fay Pascal, DIVISION SERGEANT - [employer] P[employer] [address] [place] [address] PCP - GeneralNurse Practitioner08/18/24Team MemberRelationshipSpecialtyStart Date End Date Phoenix Garner MD [address] [place] [address] PCP - GeneralFamily Medicine06/18/23 Phoenix Garner MD [address] [place] [address] PCP - [facility]06/26/24Team MemberRelationshipSpecialtyStart DateEnd Date Phoenix Garner MD [address] [place] [address] PCP - GeneralFamily Medicine06/18/23 Phoenix Garner MD [address] [place] [address] PCP - [facility]06/26/24Team MemberRelationshipSpecialtyStart DateEnd Date Phoenix Garner MD [address] [place] [address] PCP - [facility] Medicine06/18/23 Phoenix Garner MD [address] [place] [address] PCP - [facility]CO [facility]06/26/24Team MemberRelationshipSpecialtyStart DateEnd Date Phoenix Garner MD [address] [place] [address] PCP - [facility] Medicine06/18/23 Phoenix Garner MD [address] [place] [address] PCP - [facility]06/26/24Team MemberRelationshipSpecialtyStart DateEnd Date Fay Pascal APRN - [employer] [address] [place] [address] [facility]CP - [facility]08/18/24Team MemberRelationshipSpecialtyStart Date End Date Phoenix Garner MD [address] [place] [address] PCP - [facility] Medicine06/18/23 Phoenix Garner MD [address] [place] [address] PCP - O [facility]06/26/24 Fay Pascal NP [address] [place] [address] Nurse PractitionerEd[facility] Medicine09/29/24Team MemberRelationshipSpecialtyStart DateEnd Date Phoenix Garner MD [address] [place] [address] PCP - [facility]Ed[facility] Medicine06/18/23 Phoenix Garner MD [address] [place] [address] PCP - [facility]CO [facility]06/26/24 Fay Pascal NP [address] [place] [address] Nurse PractitionerWell[facility]09/29/24Team MemberRelationshipSpecialtyStart DateEnd Date Phoenix Garner MD [address] [place] [address] PCP - [facility] Medicine06/18/23 Phoenix Garner MD [address] [place] [address] PCP - [facility]CO [facility]06/26/24 Fay Pascal NP [address] [place] [address] Nurse PractitionerEd[facility] Medicine09/29/24Team MemberRelationshipSpecialtyStart DateEnd Date Phoenix Garner MD [address] [place] [address] PCP - GeneralFamily Medicine06/18/23 Phoenix Garner MD [address] [place] [address] PCP - [facility]06/26/24 Fay Pascal NP [address] [place] [address] Nurse Practitioner[facility]09/29/24Team MemberRelationshipSpecialtyStart DateEnd Date Phoenix Garner MD PCP - [facility]06/18/23 Phoenix Garner MD [address] [place] [address] PCP - [facility]06/26/24 Fay Pascal, DELMY [address] [place] [address] Nurse PractitionerWell[facility]09/29/24Team MemberRelationshipSpecialtyStart DateEnd Date Phoenix Garner MD PCP - GeneralFamily Medicine Phoenix Garner MD PCP - GeneralFamily Medicine06/18/23 Phoenix Garner MD [address] [place] [address] PCP - [facility]06/26/24 Fay Pascal NP [address] [place] [address] Nurse PractitionerFamily [facility]09/29/24 Goals (unrecognized section and content) Goals [...] BE BASED ON THE PRIMARY CLINICAL RECORDS. [email or web address] provides no warranty or guarantee of the accuracy or completeness of information in this document.
--- OUTSIDE RECORDS SUMMARY | 2025-04-16 10:42 | XMS_ITS | Clinical Summary ---
Author Organization [facility] tem Address [id number] [address] 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 Name Role Phone Phoenix Gannon MD Primary Care Provider [phone] Allergies No known active allergies Medications MedicationSigDispense [...] standard drink = 0.6 oz pure alcohol)ChildcareAnswerDate QbitlipjUwuoefonaQnjaeib14/12/2019EmploymentAnswer Date UswgorseVtiumiobywWbihfuw42/12/2019Purpose - LifeAnswerDate RecordedPurpose and direction in urtbTibhaaq30/11/2021CommentsNoSex and Gender InformationValueDate RecordedSex Assigned at BirthNot on fileLegal SexFemale 12/23/2014 11:32 AM EDTGender IdentityNot on fileSexual OrientationNot on file Last Filed Vital Signs Vital SignReadingTime TakenCommentsBlood Rktblldi082/5610 1:06 PM EDT Yhrxp037703/06/2021 1:06 PM CPHAablrzmrxyp81.8 ??C (98.2 ??F)03/06/2021 1:06 PM EDTRespiratory Vtqy0507 1:06 PM EDTOxygen Wfijyshlzl107%03/06/2021 1:06 PM EDTInhaled Oxygen Concentration--Szotlt96.8 kg (134 lb)03/06/2021 8:48 AM EDT Ksrojh571.6 cm (5' 6 )03/06/2021 8:48 AM EDTBody Mass Index21.6303/06/2021 8:48 AM EDT Plan of Treatment Health MaintenanceDue DateLast DoneCommentsDepression Pejahmjyg93/28/1968Tobacco Ffzjnttfn59/28/1968Adult BMI Cfruchwdm35/28/1974DTaP,Tdap and Td Vaccines (1 - Tdap)07/17/19740940Bskcoixefqs00/28/2001Zoster (Shingles) Vaccine (1 of 2)2005 Fall Risk Acyveigmm01/28/2021Influenza Fgkdyki0801/18/2025RSV ( or age 60+ yrs) (1 - 1-dose 75+ series)2030 Medical Devices Not on file Insurance Advance Directives TypeDate RecordedPatient RepresentativeExplanationLiving Will02/09/2025 7:33 AM Durable Power of Attorney02/09/2025 7:32 AM Care Teams Team MemberRelationshipSpecialtyStart DateEnd Date Phoenix Gannon MD PCP - GeneralFamily Medicine11/16/20
--- OUTSIDE RECORDS SUMMARY | 2025-04-16 10:42 | XMS_ITS | Clinical Summary ---
Author Organization [facility] Address [address] [place] [address] Care Team Providers Care Cadastral Engineer Name Role Phone Fay Pascal MD Primary Care Provider [phone] Allergies No known active allergies Medications MedicationSigDispense QuantityRefillsLast FilledStart DateEnd DateStatus levothyroxine (Synthroid, Levoxyl) 75 mcg tablet Take 75 mcg by mouth before breakfast.02/11/2017Active calcium citrate-vitamin D2 250 mg-2.5 mcg (100 unit) tablet Take 1 tablet by mouth two times daily.Active calcium 500 mg calcium (1,250 mg) tablet Take 1 tablet by mouth with breakfast and with evening meal.Active Active Problems ProblemNoted DateDiagnosed DateDeformity of right knee joint03/29/2025GERD (gastroesophageal reflux disease)03/29/2025Right knee pain03/29/2025Nonrheumatic mitral valve plaxmvoivyrrc41/10/2025Nonrheumatic aortic valve insufficiency 01/12/20256165Nfhesupfozxqnl08/20/2024Encounter for screening mammogram for malignant neoplasm of ucnyuk2901/07/20242162Ojqisqexkp34/20/2024History of colon nkqogj2801/07/2024IBS (irritable bowel syndrome)01/07/2024Lactose intolerance 01/07/2024Obstructive sleep apnea /20/2024bdominal pain01/07/2024 Lesion of liver07/15/2023MI 21.0-21.9, adult06/27/2023Heart kkcgmt7306/27/2023 Overview (03/02/2025): ECHO: 01/2024 mild regurg TV and MV, aortic mild-mod Hypothyroidism, adult06/27/2023Lichenification and lichen simplex chronicus 06/27/20230248Dbqruztrixqcvh30/08/2024Osteoporosis, pfoxqyecchbanr95/08/2024rimary osteoarthritis of right knee06/27/2023ectal yaevgkyu27/08/2024 Overview (03/02/2025): Colonoscopy 07/31/23: mild diverticulosis Basal cell /08/7433Srddgltfuala21/08/8286Wpvjvnqsbxx02/08/2022Vitamin D mdjdwqhcuc41/14/2022 Encounters DateTypeDepartmentCare UmaoPyeoxmvbaml43/26/2192Fwjqxl58/10/2025 2:40 PM EST Office Visit [facility] [address] [place] [facility] [place] [address] Leland Richardson MD Nonrheumatic mitral valve regurgitation (Primary Dx); Nonrheumatic aortic valve ztaihzlkvfvhy33/10/2025Orders Only [facility] [address] [facility] [place] [address] Jaelyn Wahl MA Nonrheumatic mitral valve regurgitation (Primary Dx)03/25/2025 8:39 AM EST - 03/25/2025 11:59 PM ESTHospital Encounter [facility] [address] [place] [address] Nonrheumatic mitral valve regurgitation Discharge Disposition: Home or Self Care ()03/25/20259035Kpjwbl73/29/2025Telephone [facility] [address] [place] [address] France Young RN 03/09/2025Telephone [facility] [address] [place] [facility] [place] [address] Rosa M Gray MA 03/09/2025Telephone [facility] [address] [place] [address] Rosa M Gray MA 03/03/2025 11:[address] [facility] [address] [place] [address] Leland Richardson MD Nonrheumatic mitral valve regurgitation (Primary Dx); Palpitations; Nonrheumatic aortic valve wxkoenjkkncna60/15/2025Orders Only [facility] [address] [facility] [place] [address] Jaelyn Wahl MA Nonrheumatic mitral valve regurgitation (Primary Dx)03/02/2025Orders Only [facility] [address] [place] [address] Provider, MD Stephanie from Last 3 Months Family History Medical HistoryRelationNameCommentsLiver diseaseBrother 1Liver diseaseBrother 2 Liver diseaseBrother 3Lung cancerFatherHypertensionMotherpacemakerSister 2 RelationNameStatusCommentsBrother 1DeceasedBrother 2DeceasedBrother 3Deceased FatherDeceasedMotherAliveSister 1AliveSister 2AliveSister 3Alive Social History Tobacco UseTypesPacks/DayYears UsedDateSmoking Tobacco: NeverSmokeless Tobacco: Never Tobacco Cessation:Counseling Given: Not Answered Alcohol UseStandard Drinks/WeekCommentsNot Currently0 (1 standard drink = 0.6 oz pure alcohol)PHQ-2AnswerDate RecordedPatient Health Questionnaire-2 Score0 09/23/2024CommentsNoSex and Gender InformationValueDate RecordedSex Assigned at QlgrpNofivm16/10/2025 11:21 AM EDTLegal KppWpumrp79/22/2024 2:50 PM ESTGender HlyemoemIbvmjf91/10/2025 11:21 AM EDTSexual OrientationHeterosexual or Tkjhssto66/10/2025 11:21 AM EDT Last Filed Vital Signs Vital SignReadingTime TakenCommentsBlood Ezfjcqsi28/6503/29/2025 2:55 PM EST Ovhqn577103/29/2025 2:55 PM NBFXptlesvfxgc72.6 ??C (97.9 ??F)09/23/2024 8:51 AM EDTRespiratory Qill788405/25/2024 11:15 AM ESTOxygen Oykkszkwhy11%03/29/2025 2:55 PM ESTInhaled Oxygen Concentration--Stnehb29.4 kg (142 lb)03/29/2025 2:55 PM EST Hiahxw986.6 cm (5' 6 )03/29/2025 2:55 PM ESTBody Mass Index22.9203/29/2025 2:55 PM EST Plan of Treatment DateTypeDepartmentCare Team (Latest Contact Info)Yxmqvxpprik44/05/2025 11:30 AM ESTHospital Encounter [facility] Heart [facility] [place] [facility] [address] [place] [address] Leland Richardson MD [address] [place] [address] Nonrheumatic mitral valve regurgitation; Nonrheumatic aortic valve jveswheelrhjy24/05/2025 11:30 AM EST - 04/23/2025 1:00 PM ESTSurgery [facility] [address] [place] [address] Leland Richardson MD [address] [place] [address] Coronary angiographyHealth MaintenanceDue DateLast DoneCommentsCT Colonography 1955Diabetes: Hemoglobin A1C1955FIT-DNA1955FIT1955FOBT 1955Medicare Annual Wellness (AWV)1955 3992Wsrhtbrgbyycs88/28/1956dult Lxslqzh9707/17/1977Zoster Vaccines (1 of 2)2005Fall Risk Nlkzdrdao37/28/2021 Jeztifjaz31OVID-19 Vaccine ( - 2024- season)2025 Influenza Vaccine (#1)2025Depression Hstgbrnqr405 Mwqbortsmun89/15/604797/olorectal Cancer Gjveszejh69/15/2031Pneumococcal Vaccine: 50+ DhqotBprevrigd82/11/2022, 07/15/2014, 08/18/2009HIB VaccinesAged OutNo longer eligible based on patient's age to complete this topicHPV Vaccines Aged OutNo longer eligible based on patient's age to complete this topicIPV VaccinesAged OutNo longer eligible based on patient's age to complete this topic Meningococcal B VaccineAged OutNo longer eligible based on patient's age to complete this topicMeningococcal VaccineAged OutNo longer eligible based on patient's age to complete this topicRotavirus VaccinesAged OutNo longer eligible based on patient's age to complete this topic Procedures Procedure NamePriorityDate/TimeAssociated DiagnosisCommentsTRANSESOPHAGEAL ECHO (AGA) W/ LIMITED DOPPLER AND COLOR XDUTAymjplz31/06/2025 10:39 AM EST Nonrheumatic mitral valve regurgitation ECG 12 LEAD UNIT FMETXKYRLYwjyfsk88/15/2025 12:03 PM EDT Palpitations from Last 3 Months Results * TRANSESOPHAGEAL ECHO (AGA) W/ LIMITED DOPPLER AND COLOR FLOW (03/25/2025 10:39 AM EST)Anatomical RegionLateralityModalityOtherSpecimen (Source)Anatomical Location / LateralityCollection Method / VolumeCollection TimeReceived Time 03/25/2025 9:39 AM EST Narrative 03/25/2025 2:01 PM EST 1 [facility] Heart Station [address] [place] [address] [phone] (fax) Transesophageal Echocardiogram-[facility] Name: ALESAH BONILLA Study Date: 03/25/2025 09:39 AM B/P: 92 mmHg/59 mmHg HR: 68 bpm Date of : 1955 Location: [facility] Height: 66 in. Age: 69 year(s) Patient Room: Weight: 139 lb. Gender: Female Patient Status: OutPt BSA: 1.71 m2 Indication: Mitral regurgitation, aortic insufficiency Examination: AGA/Limited Doppler/CFI, 3D images, Agitated Saline Image Quality: Good Patient Consent: Informed, written consent was obtained for the procedure Exam Location: A AGA was performed in the [facility] without complications Anesthesia Pharyngeal anesthesia with viscous Lidocaine Conclusions Left Ventricle: Global left ventricular systolic function is normal. No regional wall motion abnormality. Right Ventricle: The right ventricle is normal in size. Normal right ventricular systolic function. Left Atrium Appendage: Normal left atrial appendage, no thrombus seen. IAS: No intracardiac shunt by agitated saline injections. Right Atrium: The right atrium appears normal in size. Mitral Valve: There is moderate to severe mitral regurgitation at the level of P3 leaflet where it is partially flail and prolapsing into the left atrium with eccentric jet directed anteriorly. MR regurgitant volume is 55mL with MR ERO 0.36 cm squared. No reversal seen in the pulmonary vein. . Moderate to severe mitral regurgitation. Aortic Valve: Mild-moderate aortic valve regurgitation. Tricuspid Valve: Mild tricuspid regurgitation. Pulmonic Valve: Trivial pulmonary regurgitation. Medications Date Time Name Route Form Dose Units Ordered By Given By Comment 03/25/2025 10:45 AM Midazolam HCL (Versed) 4 milligrams 03/25/2025 10:45 AM Fentanyl (Opiates) 75 micrograms Valvular Assessment LVOT 0.7 - 1.1 m/sec Aortic Valve 1.0 - 1.7 m/sec Mitral Valve 0.6 - 1.3 m/sec Tricuspid Valve 0.3 - 0.7 m/sec Pulmonic Valve 0.6 - 0.9 m/sec Regurgitation Mild-Mod ModSev Mild Trivial Findings Left Ventricle: Global left ventricular systolic function is normal. No regional wall motion abnormality. Right Ventricle: The right ventricle is normal in size. Normal right ventricular systolic function. Left Atrium Appendage: Normal left atrial appendage, no thrombus seen. IAS: No intracardiac shunt by agitated saline injections. Right Atrium: The right atrium appears normal in size. Mitral Valve: There is moderate to severe mitral regurgitation at the level of P3 leaflet where it is partially flail and prolapsing into the left atrium with eccentric jet directed anteriorly. MR regurgitant volume is 55mL with MR ERO 0.36 cm squared. No reversal seen in the pulmonary vein. . Moderate to severe mitral regurgitation. Aortic Valve: Aortic valve is tri-leaflet. Mild-moderate aortic valve regurgitation. Tricuspid Valve: Normal tricuspid valve. Mild tricuspid regurgitation. Pulmonic Valve: Normal pulmonary valve. Trivial pulmonary regurgitation. Pericardium: No pericardial effusion. Procedure Staff Reading Group: [facility] Referring Physician: FAY PASCAL ??Renal Dialysis Technician: GOMEZ Ojeda, RDCS ??Ordering Physician: LELAND RICHARDSON ?? Procedure Note Antionette Stafford MD - 03/25/2025 1 [facility] Heart Station [address] [place] [address] [phone] (fax) Transesophageal Echocardiogram-[facility] Name: ALESHA BONILLA Study Date: 03/25/2025 09:39 AM B/P: 92 mmHg/59 mmHg HR: 68 bpm Date of : 1955 Location: [facility] Height: 66 in. Age: 69 year(s) Patient Room: Weight: 139 lb. Gender: Female Patient Status: OutPt BSA: 1.71 m2 Indication: Mitral regurgitation, aortic insufficiency Examination: AGA/Limited Doppler/CFI, 3D images, Agitated Saline Image Quality: Good Patient Consent: Informed, written consent was obtained for the procedure Exam Location: A AGA was performed in the [facility] [employer] [facility] without complications Anesthesia Pharyngeal anesthesia with viscous Lidocaine Conclusions Left Ventricle: Global left ventricular systolic function is normal. No regional wall motion abnormality. Right Ventricle: The right ventricle is normal in size. Normal right ventricular systolic function. Left Atrium Appendage: Normal left atrial appendage, no thrombus seen. IAS: No intracardiac shunt by agitated saline injections. Right Atrium: The right atrium appears normal in size. Mitral Valve: There is moderate to severe mitral regurgitation at the level of P3 leaflet where it is partially flail and prolapsing into the left atrium with eccentric jet directed anteriorly. MR regurgitant volume is 55mL with MR ERO 0.36 cm squared. No reversal seen in the pulmonary vein. . Moderate to severe mitral regurgitation. Aortic Valve: Mild-moderate aortic valve regurgitation. Tricuspid Valve: Mild tricuspid regurgitation. Pulmonic Valve: Trivial pulmonary regurgitation. Medications Date Time Name Route Form Dose Units Ordered By Given By Comment 03/25/2025 10:45 AM Midazolam HCL (Versed) 4 milligrams 03/25/2025 10:45 AM Fentanyl (Opiates) 75 micrograms Valvular Assessment LVOT 0.7 - 1.1 m/sec Aortic Valve 1.0 - 1.7 m/sec Mitral Valve 0.6 - 1.3 m/sec Tricuspid Valve 0.3 - 0.7 m/sec Pulmonic Valve 0.6 - 0.9 m/sec Regurgitation Mild-Mod ModSev Mild Trivial Findings Left Ventricle: Global left ventricular systolic function is normal. No regional wall motion abnormality. Right Ventricle: The right ventricle is normal in size. Normal right ventricular systolic function. Left Atrium Appendage: Normal left atrial appendage, no thrombus seen. IAS: No intracardiac shunt by agitated saline injections. Right Atrium: The right atrium appears normal in size. Mitral Valve: There is moderate to severe mitral regurgitation at the level of P3 leaflet where it is partially flail and prolapsing into the left atrium with eccentric jet directed anteriorly. MR regurgitant volume is 55mL with MR ERO 0.36 cm squared. No reversal seen in the pulmonary vein. . Moderate to severe mitral regurgitation. Aortic Valve: Aortic valve is tri-leaflet. Mild-moderate aortic valve regurgitation. Tricuspid Valve: Normal tricuspid valve. Mild tricuspid regurgitation. Pulmonic Valve: Normal pulmonary valve. Trivial pulmonary regurgitation. Pericardium: No pericardial effusion. Procedure Staff Reading Group: [facility] Referring Physician: FAY PASCAL Renal Dialysis Technician: GOMEZ Ojeda, RDCS Ordering Physician: LELAND RICHARDSON Authorizing ProviderResult TypeResult StatusChdougie Richardson [facility] ECHO PROCEDURESFinal Result * ECG 12 lead unit performed (03/03/2025 12:03 PM EDT)Specimen (Source) Anatomical Location / LateralityCollection Method / VolumeCollection Time Received Time Narrative Authorizing ProviderResult TypeResult StatusChdougie REIS ORDERABLES Final Result from Last 3 Months Insurance Care Teams Team MemberRelationshipSpecialtyStart DateEnd Date Fay Pascal MD [facility] [place] [address] PCP - GeneralNurse Mvguviwiorto91/14/25
--- OUTSIDE RECORDS SUMMARY | 2025-04-16 10:42 | XMS_ITS | Clinical Summary ---
Author Organization [facility] Address [address], [address] [place] [address] Care Team Providers Care Industrial Relations Commissioner Name Role Phone Fay Pascal APRN, NP [...] (1 standard drink = 0.6 oz pure alcohol)occNORWALK MEMORIAL [facility]PITAL UtilitiesAnswerDate RecordedIn the past 12 months has the [employer], gas, oil, or water [employer] threatened to shut off services in your home?No08/20/2024PHQ-2AnswerDate RecordedPHQ-9 Total Axrbt434Hunger Vital SignAnswerDate RecordedWithin the past 12 months, [...] were you homeless or living in a snf (including now)?No08/20/2024 Food InsecurityAnswerDate RecordedWithin the past 12 months, you worried that your food would run out before you got the money to buymore.Within the past 12 months, the food you bought just didn't last and you didn't have money to get more.CommentsUnknownSex and Gender Information ValueDate RecordedSex Assigned at BirthNot on fileLegal CvtXvdaxb16/01/2025 10:03 AM EDTGender IdentityNot on fileSexual OrientationNot on file Last Filed Vital Signs Vital SignReadingTime TakenCommentsBlood Tyiffsel699/7004 8:43 AM EDT Pulse--Temperature--Respiratory Rate--Oxygen Saturation--Inhaled Oxygen Concentration--Utvzhp43.1 kg (137 lb)09/10/2024 8:43 AM BNLBwnzwc451.6 cm (5' 6 )09/10/2024 8:43 AM EDTBody Mass Index22.11009/10/2024 8:43 AM EDT Plan of Treatment Health MaintenanceDue DateLast DoneCommentsHepatitis C drccix9407/17/1973 DTaP/Tdap/Td vaccine (1 - Tdap)07/17/19741556Hywvij84/28/2610Atmrkhnpnsz35/28/2001 Colorectal Cancer Wcawke2907/17/2000FIT/FOBT: Average risk2000Fecal-DNA (Cologuard): Average risk2000Sigmoidoscopy/CT ndcyxcubvxju76/28/2001 Shingles vaccine (1 of 2)2005DEXA (modify frequency per FRAX score) 2010reast cancer /, 03/29/2017Annual Wellness Visit (Medicare)08/18/2024Flu vaccine (#1)12/18/2024OVID-19 Vaccine ( season)2025Depression Opcyia06604/07/2024, 08/20/2024Respiratory Syncytial Virus (RSV) or age 60 yrs+ (1 - 1-dose 75+ series)2030 Pneumococcal 50+ years YoxjexrKhkncuttk54/11/2022, 07/15/2014, 08/18/2009 Hepatitis A vaccineAged OutNo longer [...] patient's age to complete this [place] [address] Care Teams Team MemberRelationshipSpecialtyStart DateEnd Date ChadFay renteria, COMMUNICATION LECTURER - PROGRAMS MANAGER [facility] [place] [address] PCP - GeneralNchip Practitioner08/18/24
--- OUTSIDE RECORDS SUMMARY | 2025-04-16 10:42 | XMS_ITS | Encounter Summary ---
Author Organization [facility] Address [address] [place] [address] Care Team Providers Care Life Science Technician Name Role Phone Fay Pascal MD Primary Care Provider [phone] Encounter Details DateTypeDepartmentCare Team (Latest Contact Info)Upetgrkdtho72/26/2025Travel Social History Tobacco UseTypesPacks/DayYears UsedDateSmoking Tobacco: NeverSmokeless Tobacco: NeverAlcohol UseStandard Drinks/WeekCommentsNot Currently0 (1 standard drink = 0.6 oz pure alcohol)PHQ-2AnswerDate RecordedPatient Health Questionnaire-2 Score CommentsNoSex and Gender InformationValueDate RecordedSex Assigned at LnlfsNpbtyn00/10/2025 11:21 AM EDTLegal CwaKocunj39/22/2024 2:50 PM ESTGender HwltdmsiYgiluv93/10/2025 11:21 AM EDTSexual OrientationHeterosexual or Scmwfqxh74/10/2025 11:21 AM EDTdocumented as of this encounter Plan of Treatment DateTypeDepartmentCare Team (Latest Contact Info)Rtvomqrkwxg96/05/2025 11:30 AM ESTHospital Encounter [facility] [address] [place] [address] Kaveh Da Silva MD [address] [place] [address] Nonrheumatic mitral valve regurgitation; Nonrheumatic aortic valve kwailfhyenffq69/05/2025 11:30 AM EST - 04/23/2025 1:00 PM ESTSurgery [facility] [address] [place] [address] Kaveh Da Silva MD [address] [place] [address] Coronary angiographydocumented as of this encounter Visit Diagnoses Not on filedocumented in this encounter Care Teams Team MemberRelationshipSpecialtyStart DateEnd Date Fay Pascal MD [address] [place] [address] PCP - GeneralNurse Xmmgqzxakxck07/14/25documented as of this encounter
[2025-04-16 11:13] LABS: Hematocrit 36.5 % (36.0-48.0); Hemoglobin 11.9 g/dL (12.0-16.0); Immature Granulocytes Abs Auto 0.00 10^3/uL (0.00-0.03); Immature Granulocytes Pct Auto 0.0 % (0.0-0.5); Lymphocytes Absolute Auto 0.7 10^3/uL (1.2-3.8); Mean Corpuscular HGB Conc 32.6 g/dL (29.9-35.2); Mean Corpuscular Hemoglobin 29.6 pg (26.7-34.0); Mean Corpuscular Volume 90.8 fL (81.0-99.0); Platelet Count 169 10^3/uL (150-450); Red Blood Count 4.02 10^6/uL (4.20-5.40); White Blood Count 4.3 10^3/uL (4.0-11.0)
[2025-04-16 11:28] LABS: Anion Gap 5.2; Blood Urea Nitrogen 13.0 mg/dL (7.0-18.0); Calcium 9.0 mg/dL (8.5-10.1); Carbon Dioxide 31.4 mmol/L (21.0-32.0); Chloride 105 mmol/L (98-107); Estimated GFR (African America >60 (>=60 mL/min/1.73m^2); Estimated GFR (Non-African Ame >60 (>=60 mL/min/1.73m^2); Glucose 86 mg/dL (74-106); Potassium 3.6 mmol/L (3.5-5.1); Sodium 138 mmol/L (136-145)
== END 2025-04-16 10:38 | disposition home or self-care (01) ==
PROVIDERS: PCP Nurse Practitioner; Visit Provider Internal Medicine Cardiovascular Disease
DX: I34.0 Nonrheumatic mitral (valve) insufficiency (principal)
CPT/HCPCS: 36415; 80048; 85025

== ENCOUNTER 2025-05-12 08:48 | Outpatient (OUT) | payer MEDICARE, SELFPAY ==
--- OUTSIDE RECORDS SUMMARY | 2025-05-12 08:50 | XMS_ITS ---
Author Organization [facility] Address [address] [place] [address] Care Team Providers Care Director Of Financial Aid Name Role Phone Fay Pascal MD Primary Care Provider [phone] Active Problems ProblemNoted DateDiagnosed DateDeformity of right knee joint03/29/2025GERD (gastroesophageal reflux disease)03/29/2025Right knee pain03/29/2025Nonrheumatic mitral valve tocioenbsejfk21/10/2025Nonrheumatic aortic valve insufficiency 01/12/20251654Rpqlbpkozqkvwh52/20/2024Encounter for screening mammogram for malignant neoplasm of nudsjv8201/07/20241293Tppuzbnmqk89/20/2024History of colon pizrfh6201/07/2024IBS (irritable bowel syndrome)01/07/2024Lactose intolerance 01/07/2024Obstructive sleep apnea xotrllgh03/20/2024bdominal pain01/07/2024 Lesion of liver07/15/2023MI 21.0-21.9, adult06/27/2023Heart fzlnxa1206/27/2023 Overview (03/02/2025): ECHO: 01/2024 mild regurg TV and MV, aortic mild-mod Hypothyroidism, adult06/27/2023Lichenification and lichen simplex chronicus 06/27/20232459Swjzllhadljmco09/08/2024Osteoporosis, wanzbanakqssnv79/08/2024rimary osteoarthritis of right knee06/27/2023ectal wuocbmyl30/08/2024 Overview (03/02/2025): Colonoscopy 07/31/23: mild diverticulosis Basal cell gixfnqede04/08/0408Vaemcnhwfveb63/08/8466Ipbczinqdqa88/08/2022Vitamin D jzlexjeaog35/14/2022 Current Treatment and Therapy Plans No current plan information found. Past Treatment and Therapy Plans No past plan information found. Lifetime Dose Tracking * ChemicalLifetime DoseAutomatic EntryManual EntryFluoro Time1.8 minutes0 minutes1.8 minutesAir Kerma87 mGy0 mGy87 mGyDose Area Product9,084 mGy-cm20 mGy-cm29,084 mGy-cm2
--- OUTSIDE RECORDS SUMMARY | 2025-05-12 08:50 | XMS_ITS | Encounter Summary ---
Author Organization [facility] Address [address] [place] [address] Care Team Providers Care Senior Dot Net Developer Name Role Phone [place] Gannon MD Primary Care Provider [phone] Kaveh Da Silva MD Unavailable [phone] Sabra Quinteros MD Unavailable [phone] Source Comments In the event this information is protected by the Federal Confidentiality of Alcohol and Drug AbusePatient Records regulations: The Federal rules restrict any use of the information to criminally investigate or prosecute any alcohol or drug abuse patient.[facility] Reason for Visit * ReasonCommentsInsurance Inquiry Encounter Details DateTypeDepartmentCare Team (Latest Contact Info)Wvkbporggxq89/12/2025Telephone Cardiothoracic [address] [place] [address] Sabra Quinetros MD [address] [place] [address] Insurance Inquiry Social History Tobacco UseTypesPacks/DayYears UsedDateSmoking Tobacco: NeverSmokeless Tobacco: NeverAlcohol UseStandard Drinks/WeekCommentsNot Currently0 (1 standard drink = 0.6 oz pure alcohol)Area Deprivation IndexAnswerDate RecordedNational Score (1- 100), lower number is lower oxsr194907/30/2022State Score (1-10), lower number is lower riskNot on file3Data from: https://www.neighborhoodatlas.medicine.[facility]/. Last address used for kuuuzbirtwv[address] [facility]3CommentsUnknownSex and Gender InformationValueDate RecordedSex Assigned at BirthNot on fileLegal SexFemale 04/20/2012 10:02 AM ESTGender IdentityNot on fileSexual OrientationNot on file documented as of this encounter Miscellaneous Notes * Telephone Encounter - Timmy Rubio - 04/30/2025 4:07 PM EST INN * Telephone Encounter - Karen Corrigan - 04/30/2025 3:54 PM EST Please verify insurance. Thank you documented in this encounter Plan of Treatment Not on file documented as of this encounter Visit Diagnoses Not on filedocumented in this encounter Care Teams Team MemberRelationshipSpecialtyStart DateEnd Date [place] Gannon MD [address] [place] [address] PCP - GeneralFamily Medicine07/26/22 Kaveh Da Silva MD [address] [place] [address] XervutwfpJrtvihfvyp10/9/25 Sabra Quinteros MD [address] [place] [address] SurgeonCardiac Surg04/27/25documented as of this encounter
--- OUTSIDE RECORDS SUMMARY | 2025-05-12 08:50 | XMS_ITS | Encounter Summary ---
Author Organization [facility] Address [address] [place] [address] Care Team Providers Care Real Estate Transaction Coordinator Name Role Phone [place] Gannon MD Primary Care Provider [phone] Kaveh Da Silva MD Unavailable [phone] Sabra Quinteros MD Unavailable [phone] Source Comments In the event this information is protected by the Federal Confidentiality of Alcohol and Drug AbusePatient Records regulations: The Federal rules restrict any use of the information to criminally investigate or prosecute any alcohol or drug abuse patient.[facility] Reason for Referral * Transition of Care (Routine) - AuthorizedSpecialtyDiagnoses / Procedures Referred By ContactReferred To ContactCardiothoracic Surgery Diagnoses Nonrheumatic mitral valve regurgitation Nonrheumatic aortic valve insufficiency Kaveh Da Silva MD [address] [place] [address] Phone: tel: Referral IDStatusReasonStart DateExpiration DateVisits RequestedVisits [id number] PCP Requested Referral Encounter Details DateTypeDepartmentCare Team (Latest Contact Info)Jylcjebobvo26/17/2025Transcribe Orders Referring Physician [address] [address] Kaveh Da Silva MD [address] [place] [address] Nonrheumatic mitral valve regurgitation (Primary Dx); Nonrheumatic aortic valve insufficiency Social History Tobacco UseTypesPacks/DayYears UsedDateSmoking Tobacco: NeverSmokeless Tobacco: NeverAlcohol UseStandard Drinks/WeekCommentsNot Currently0 (1 standard drink = 0.6 oz pure alcohol)Area Deprivation IndexAnswerDate RecordedNational Score (1- 100), lower number is lower dzzf769607/30/2022State Score (1-10), lower number is lower riskNot on file3Data from: https://www.neighborhoodatlas.medicine.[facility].edu/. Last address used for [address] [facility]3CommentsUnknownSex and Gender InformationValueDate RecordedSex Assigned at BirthNot on fileLegal SexFemale 04/20/2012 10:02 AM ESTGender IdentityNot on fileSexual OrientationNot on file documented as of this encounter Plan of Treatment NameTypePriorityAssociated DiagnosesOrder ScheduleCONSULT TO CARDIOTHORACIC SURGERYReferralRoutine Nonrheumatic mitral valve regurgitation Nonrheumatic aortic valve insufficiency 1 Occurrences starting 05/05/2025 until 05/05/2026documented as of this encounter Visit Diagnoses Diagnosis Nonrheumatic mitral valve regurgitation- Primary Nonrheumatic aortic valve insufficiency Aortic valve disorders documented in this encounter Care Teams Team MemberRelationshipSpecialtyStart DateEnd Date [place] Gannon MD [address] [place] [address] PCP - GeneralFamily Medicine07/26/22 Kaveh Da Silva MD [address] [place] [address] CdrfvofqbJnujnqfasp74/9/25 Sabra Quinteros MD [address] [place] [address] SurgeonCardiac Surg04/27/25documented as of this encounter
--- OUTSIDE RECORDS SUMMARY | 2025-05-12 08:50 | XMS_ITS | Clinical Summary ---
Author Organization [employer] [facility] tem Address [id number] [address] [place] [address] Care Team Providers Care Care Technician Name Role Phone [place] Gannon MD Primary Care Provider [phone] Allergies No known active allergies Medications MedicationSigDispense [...] standard drink = 0.6 oz pure alcohol)ChildcareAnswerDate CggsgrmiJozfyxnqaAviwdsc42/12/2019EmploymentAnswer Date QgavzsxkMhmvbeppieXxqpazb00/12/2019Purpose - LifeAnswerDate RecordedPurpose and direction in yxsaNtjwthv80/11/2021CommentsNoSex and Gender InformationValueDate RecordedSex Assigned at BirthNot on fileLegal SexFemale 12/23/2014 11:32 AM EDTGender IdentityNot on fileSexual OrientationNot on file Last Filed Vital Signs Vital SignReadingTime TakenCommentsBlood Ztyearbk764/5610 1:06 PM EDT Xflqr198703/06/2021 1:06 PM STVGxxaoyorixz95.8 ??C (98.2 ??F)03/06/2021 1:06 PM EDTRespiratory Lgpi1372 1:06 PM EDTOxygen Peuqqzhjey318%03/06/2021 1:06 PM EDTInhaled Oxygen Concentration--Edqnur88.8 kg (134 lb)03/06/2021 8:48 AM EDT Xzdowe387.6 cm (5' 6 )03/06/2021 8:48 AM EDTBody Mass Index21.6303/06/2021 8:48 AM EDT Plan of Treatment Health MaintenanceDue DateLast DoneCommentsDepression Xuvmrhkdg93/28/1968Tobacco Bdyppnrcx52/28/1968Adult BMI Wpdbumeim64/28/1974DTaP,Tdap and Td Vaccines (1 - Tdap)07/17/19746679Hobitaawdrm09/28/2001Zoster (Shingles) Vaccine (1 of 2)2005 Fall Risk Uztpsvodm73/28/2021Influenza Raxgypk3001/18/2025RSV ( or age 60+ yrs) (1 - 1-dose 75+ series)2030 Medical Devices Not on file Insurance Advance Directives TypeDate RecordedPatient RepresentativeExplanationLiving Will02/09/2025 7:33 AM Durable Power of Attorney02/09/2025 7:32 AM Care Teams Team MemberRelationshipSpecialtyStart DateEnd Date [place] Gannon MD PCP - GeneralFamily Medicine11/16/20
--- OUTSIDE RECORDS SUMMARY | 2025-05-12 08:50 | XMS_ITS | Clinical Summary ---
Author Organization [facility] Address [address] [facility], [address] [place] [address] Care Team Providers Care Welding Machine Operator/Tender Name Role Phone Fay Pascal APRN, NP [...] (1 standard drink = 0.6 oz pure alcohol)occMEMORIAL HEALTH SYSTEM UtilitiesAnswerDate RecordedIn the past 12 months has the [place], gas, oil, or water [employer] threatened to shut off services in your home?No08/20/2024PHQ-2AnswerDate RecordedPHQ-9 Total Lqkiz264Hunger Vital SignAnswerDate RecordedWithin the past 12 months, [...] ValueDate RecordedSex Assigned at BirthNot on fileLegal HduRhrjwz00/01/2025 10:03 AM EDTGender IdentityNot on fileSexual OrientationNot on file Last Filed Vital Signs Vital SignReadingTime TakenCommentsBlood Zwjrwqjx247/7004 8:43 AM EDT Pulse--Temperature--Respiratory Rate--Oxygen Saturation--Inhaled Oxygen Concentration--Vlvtti79.1 kg (137 lb)09/10/2024 8:43 AM WNZLkupli218.6 cm (5' 6 )09/10/2024 8:43 AM EDTBody Mass Index22.11009/10/2024 8:43 AM EDT Plan of Treatment Health MaintenanceDue DateLast DoneCommentsHepatitis C dsgkph7407/17/1973 DTaP/Tdap/Td vaccine (1 - Tdap)07/17/19744419Dbrouq53/28/1521Bpdwtgrwkky20/28/2001 Colorectal Cancer Nyoqoo9607/17/2000FIT/FOBT: Average risk2000Fecal-DNA (Cologuard): Average risk2000Sigmoidoscopy/CT lnvoaglwungq86/28/2001 Shingles vaccine (1 of 2)2005DEXA (modify frequency per FRAX score) 2010reast cancer mgvmpo99/, 03/29/2017Annual Wellness Visit (Medicare)08/18/2024Flu vaccine (#1)12/18/2024OVID-19 Vaccine ( season)2025Depression Frhhtv39604/07/2024, 08/20/2024Respiratory Syncytial Virus (RSV) or age 60 yrs+ (1 - 1-dose 75+ series)2030 Pneumococcal 50+ years JicpjgnAahtpwzqe07/11/2022, 07/15/2014, 08/18/2009 Hepatitis A vaccineAged OutNo longer [...] Teams Team MemberRelationshipSpecialtyStart DateEnd Date ChadFay renteria, JUNIOR LINUX ADMINISTRATOR - RELAY ASSOCIATE [facility] [place] [address] PCP - GeneralNchip Practitioner08/18/24
--- OUTSIDE RECORDS SUMMARY | 2025-05-12 08:50 | XMS_ITS | Clinical Summary ---
Author Organization [facility] Address [address] [place] [address] Care Team Providers Care Senior Operator Name Role Phone [place] Gannon MD Primary Care Provider [phone] [place] Gannon MD Unavailable Fay aPscal PROPERTY AND EQUIPMENT CLERK Unavailable [phone] Allergies No known active allergies Medications [...] Active Problems ProblemNoted DateDiagnosed DateNonrheumatic aortic valve hdvqbylwahmko06/26/2025 Assessment & Plan (01/12/2025 11:03 AM EDT): ECHO Obstructive sleep apnea /20/2024 Assessment & Plan (01/12/2025 6:20 AM EDT): [...] EDT): Non compliant with PAP use Lactose rzchxpumgrk21/20/2024IBS (irritable bowel syndrome)01/07/2024History of colon ybsmnd7001/07/20247452Glpsulnryi60/20/8513Lueoimwisiysfm65/20/2024bdominal pain 01/07/2024Encounter for screening mammogram for malignant [...] liver4Right hip pain06/27/2023rimary osteoarthritis of right knee06/27/2023Osteoporosis, gmlicgseheswxy44/08/2024 Assessment & Plan (01/12/2025 6:25 AM EDT): No DEXA on file, I do recommend DEXA scan Does take calcium/vit d supplement Ohfgashbjgubly87/08/2024Vitamin D iqguprmwrx66/08/2024 Assessment & Plan (01/12/2025 6:24 AM EDT): Takes calcium/vit d supplement Eiodmpyvhmq79/08/2024Hypothyroidism, adult06/27/2023 Assessment & Plan (01/12/2025 6:26 AM [...] dose to 75mcg Lichenification and lichen simplex ufwzqnrjz61/08/3980Ohzzqmpjwrxa61/08/2024 Assessment & Plan (01/12/2025 6:21 AM EDT): Hx of this per lab finding, no statin use Recommend low fat diet SCC (squamous cell carcinoma)06/27/2023asal cell vtmgecdad52/08/2024MI 21.0- 21.9, adult4Rectal usvmlhyj44/08/2024 Overview (08/01/2023): Colonoscopy 07/31/23: mild diverticulosis Assessment [...] her see general surgeon for evaluation Heart emfxgr9406/27/2023 Overview (02/19/2024): ECHO: 01/2024 mild regurg TV [...] or relatives?More than three times a week06/26/2023ttends Zoroastrianism ServicesNot on file06/26/2023o you belong to any clubs or organizations such as congregational groups, unions, fraternal or athletic groups, or school groups?No06/26/2023How often do you attend meetings of the clubs or organizations you belong to?Never06/26/2023re you , , , , never , or living with a partner?Vfiugqx1006/26/2023UDIT-C AnswerDate RecordedQ1: How often do you have [...] hard at all06/26/2023 PHQ-2AnswerDate RecordedPatient Health Questionnaire-2 Kkiae371Finintermountain healthcare [place] of Occupational [facility] - Occupational Stress QuestionnaireAnswerDate RecordedDo you feel stress - tense, restless, nervous, or anxious, or unable to sleep at night because yourmind is troubled all the time - these days?To some jlahqe1106/26/2023Exercise Vital SignAnswerDate RecordedOn average, how many days [...] steady place to sleep or slept in [facility] (including now)?No06/26/2023CommentsUnknownSex and Gender InformationValueDate RecordedSex Assigned at BirthNot on fileLegal SexFemale 08/01/2022 8:21 PM EDTGender IdentityNot on fileSexual OrientationNot on file Last Filed Vital Signs Vital SignReadingTime TakenCommentsBlood Itfbztls28/6608 10:06 AM EDT Njunk5057 10:06 AM MNFMrwileosxzr34.7 ??C (98.1 ??F)01/12/2025 10:06 AM EDTRespiratory Wjux310001/12/2025 10:06 AM EDTOxygen Rlohqifxin95%01/12/2025 10:06 AM EDTInhaled Oxygen Concentration--Odtgpp43.1 kg (137 lb)01/12/2025 10:06 AM SVMKiykjl076.6 cm (5' 6 )09/29/2024 9:14 AM EDTBody Mass Index22.11009/29/2024 9:14 AM EDT Plan of Treatment Health MaintenanceDue DateLast DoneCommentsCT Srqqmfgxqiyb85/28/1956FIT-DNA 1955FIT1955FOBT1955 3797Ctcxqjvxsnpvi13/28/7705Kputsbxpn26/23/2025 05/11/2024, 05/10/2023, 05/10/2023, Additional history existsMedicare Annual Wellness (AWV)6001/12/2025, 01/07/2024, 01/07/2024, Additional history tsejkbEqxvtfkevzs39, 04/03/2021, 04/03/2021olorectal Cancer Jwoegvmqv93/13/2034neumococcal Vaccine: 65+ StyqxPygbfdemn36/11/2022, 07/15/2014, 08/18/2009Influenza VaccineDiscontinued Procedures Procedure NamePriorityDate/TimeAssociated DiagnosisCommentsMM TOMOSYNTHESIS SCREENING BI05/11/2024 2:21 PM EST from Last 3 Months or Most Recently Relevant to Health Maintenance Results * MM TOMOSYNTHESIS SCREENING BI (05/11/2024 2:21 PM EST)Anatomical Region LateralityModalityOtherSpecimen (Source)Anatomical Location / Laterality Collection Method / VolumeCollection TimeReceived Time05/11/2024 2:21 PM EST Narrative 05/11/2024 2:22 PM EST [facility] ?[address] ? [place] [address] ? Mammography Report ? Signed ? Patient: MAAG,ALESHA A ?MR#: [id number] ?? : 1955 ?Acct:[id number] ?? Age/Sex: 68 / F ?ADM Date: 12/23/24 ?? Loc: MAMMO ? Attending Dr: Fay J Aichholz PROPERTY AND EQUIPMENT CLERK ? Ordering Physician: Aichholz,Fay PROPERTY AND EQUIPMENT CLERK ?Results: ? Date of Service: 05/11/24 ?Follow Up: ? Procedure(s): MM tomosynthesis screening BI ?? Accession Number(s): [id number] ? cc: Fay Pascal PROPERTY AND EQUIPMENT CLERK ? Patient Name: ? ALESHA MAAG ? MR#: [id number] ? : 1955 ? Exam Date: 05/11/2024 [...] at age 74. ? LOCATION: ? [facility] ? BREAST COMPOSITION: ? There are scattered [...] 1422 ? DD/ 1421 ? TD/TT: ? Salvage Supervisor: Procedure Note Radiology, Radiologist, MD - 05/11/2024 [place] [address] Mammography Report Signed Patient: ALESHA BONILLA AMR#: [id number] : 1955cct:[id number] Age/Sex: 68 / FADM Date: 05/11/24 Loc: MAMMO Attending Dr: Fay Pascal PROPERTY AND EQUIPMENT CLERK Ordering Physician: Fay Pascal NPResults: Date of Service: 05/11/24Follow Up: Procedure(s): MM tomosynthesis screening BI Accession Number(s): [id number] cc: Fay Pascal NP Patient Name: ALESHA BONILLA MR#: [id number] : 1955 Exam Date: 05/11/2024 Ordering Doctor: YAJAIRA Pascal SALES PROJECT MANAGER RADIOLOGY REPORT PROCEDURE: MM TOMOSYNTHESIS SCREENING BI COMPARISON: MM TOMOSYNTHESIS SCREENING BI, 05/10/2023. MG MAMM AVOAAK2Z NEETA CAD, 05/09/2022. INDICATIONS: Screening Calculator Name [...] cancer at age 74. LOCATION: [facility] BREAST COMPOSITION: There are scattered areas [...] M.D. Signed By:05/11/24 1422 DD/ 142 TD/TT: Salvage Supervisor: Authorizing ProviderResult TypeResult StatusLisa Cancer Treatment Centers Of [facility] NPCLINISYNC IMAGING Final Result from Last 3 Months or Most Recently Relevant to Health Maintenance Insurance Care Teams Team MemberRelationshipSpecialtyStart DateEnd Date [place] Gannon MD PCP - GeneralFamily Medicine06/18/23 [place] Gannon MD [address] [place] [phone] [facility]06/26/24 Fay Pascal NP [address] [place] [phone] Nurse PractitionerFaDoctors Hospital of Augusta09/29/24
--- OUTSIDE RECORDS SUMMARY | 2025-05-12 08:50 | XMS_ITS | Clinical Summary ---
Author Organization [facility] Address [address] [address] Care Team Providers Care Propulsion Machinery Service Engineer Name Role Phone Fay Pascal MD Primary Care Provider [phone] Allergies No known active allergies Medications MedicationSigDispense QuantityRefillsLast FilledStart DateEnd DateStatus levothyroxine (Synthroid, Levoxyl) 75 mcg tablet Take 75 mcg by mouth before breakfast.02/11/2017Active calcium citrate-vitamin D2 250 mg-2.5 mcg (100 unit) tablet Take 1 tablet by mouth two times daily.Active calcium 500 mg calcium (1,250 mg) tablet Indications:Osteoporosis, postmenopausalTake 1 tablet (500 mg) by mouth in the morning. 30 tablet ctive calcium 500 mg calcium (1,250 mg) tablet Take 1 tablet by mouth with breakfast and with evening meal.04/23/2025 Discontinued Active Problems ProblemNoted DateDiagnosed DateDeformity of right knee joint03/29/2025GERD (gastroesophageal reflux disease)03/29/2025Right knee pain03/29/2025Nonrheumatic mitral valve baqyejtvaxikc75/10/2025Nonrheumatic aortic valve insufficiency 01/12/20251012Tzhyoqbpjwzfts91/20/2024Encounter for screening mammogram for malignant neoplasm of hwbihc3301/07/20245737Rcbeokxoaj40/20/2024History of colon svegdg0501/07/2024IBS (irritable bowel syndrome)01/07/2024Lactose intolerance 01/07/2024Obstructive sleep apnea rckknnle83/20/2024bdominal pain01/07/2024 Lesion of liver07/15/2023MI 21.0-21.9, adult06/27/2023Heart ikzhbx7506/27/2023 Overview (03/02/2025): ECHO: 01/2024 mild regurg TV and MV, aortic mild-mod Hypothyroidism, adult06/27/2023Lichenification and lichen simplex chronicus 06/27/20238809Amybkzztbjvymf71/08/2024Osteoporosis, rkwpulqdkpsiwz92/08/2024rimary osteoarthritis of right knee06/27/2023ectal ceyuoyhi01/08/2024 Overview (03/02/2025): Colonoscopy 07/31/23: mild diverticulosis Basal cell duhfuwyvd37/08/5457Lifphuyzksdj77/08/3853Obblxdzaumf16/08/2022Vitamin D jxkdihyccv18/14/2022 Encounters DateTypeDepartmentCare BtwwAlbovwkzkjt16/16/2025Orders Only [address] [address] Jaelyn Wahl MA Nonrheumatic mitral valve regurgitation (Primary Dx); Nonrheumatic aortic valve wsnsezbsktjvn19/05/2025 11:30 AM EST - 04/23/2025 1:00 PM ESTSurgery [facility] [address] [place] [address] Leland Richardson MD Coronary rlxlpjxhuye76/05/2025 9:36 AM EST - 04/23/2025 3:29 PM ESTHospital Encounter [facility] [address] [place] [address] Leland Richardson MD Osteoporosis, 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Primary Dx); Nonrheumatic mitral valve regurgitation; Nonrheumatic aortic valve insufficiency Discharge Disposition: Home or Self Care ()04/23/20259938Myvdxl47/26/2025Travel 03/29/2025 2:40 PM ESTOffice Visit [place] [address] [place] [address] Leland Richardson MD Nonrheumatic mitral valve regurgitation (Primary Dx); Nonrheumatic aortic valve qayajcgbopgqc34/10/2025Orders Only [facility] [address] [place] [address] Jaelyn Wahl MA Nonrheumatic mitral valve regurgitation (Primary Dx)03/25/2025 8:39 AM EST - 03/25/2025 11:59 PM ESTHospital Encounter [facility] [address] [place] [address] Nonrheumatic mitral valve regurgitation Discharge Disposition: Home or Self Care (01)03/25/20250927Wfvbcg03/29/2025Telephone [facility] [address] [place] [address] France Young RN 03/09/2025Telephone [facility] [address] [place] [address] Roas M Gray MA 03/09/2025Telephone [facility] [address] [place] [facility] [place] [address] Rosa M Gray MA 03/03/2025 11:40 AM EDTOffice Visit [facility] [address] [place] [facility] [place] [address] Leland Richardson MD Nonrheumatic mitral valve regurgitation (Primary Dx); Palpitations; Nonrheumatic aortic valve mthqnchgfumqj76/15/2025Orders Only [facility] [address] [place] [address] Jaelyn Wahl MA Nonrheumatic mitral valve regurgitation (Primary Dx)03/02/2025Orders Only [facility] [address] [place] [address] Provider, MD Stephanie from Last 3 Months [...] 09/23/2024CommentsNoSex and Gender InformationValueDate RecordedSex Assigned at SarsjOqeqoy16/10/2025 11:21 AM EDTLegal KfzIxzacd07/22/2024 2:50 PM ESTGender MhtbrvmiYjbnhj83/10/2025 11:21 AM EDTSexual OrientationHeterosexual or Asebxhxy71/10/2025 11:21 AM EDT Last Filed Vital Signs Vital SignReadingTime TakenCommentsBlood Iulfpfec99/7812 3:15 PM EST Ziydy958204/23/2025 3:15 PM YUTReudqowdctw89.6 ??C (97.9 ??F)09/23/2024 8:51 AM EDTRespiratory Qyww211806/24/2024 3:15 PM ESTOxygen Ajefyeewbi75%04/23/2025 3:15 PM ESTInhaled Oxygen Concentration--Ynfpxz85.4 kg (142 lb)03/29/2025 2:55 PM EST Uawrtn530.6 cm (5' 6 )03/29/2025 2:55 PM ESTBody Mass Index22.9203/29/2025 2:55 PM EST Plan of Treatment DateTypeDepartmentCare Team (Latest Contact Info)Twitagkoyke68/07/2026 10:40 AM ESTOffice Visit [facility] [address] [place] [address] Leland Richardson MD [address] [place], [place] [address] [address] (work) Health MaintenanceDue DateLast DoneCommentsCT Wgeqqehbxvhx57/28/1956Diabetes: Hemoglobin A1C1955FIT-DNA1955FIT1955FOBT1955Medicare Annual Wellness (AWV)1955 2277Abzjpohluoopa85/28/1956dult Ieibsee4507/17/1977 Zoster Vaccines (1 of 2)2005Fall Risk Wuuudhxcb94/28/2021Mammogram /2COVID-19 Vaccine ( - season)2025Influenza Vaccine (#1)2025Depression Dvjdmcumt01/5Colonoscopy /olorectal Cancer Qjwlxpkis29/15/2031neumococcal Vaccine: 50+ RabirHxlbetgaj59/11/2022, 07/15/2014, 08/18/2009HIB VaccinesAged OutNo longer eligible based [...] to complete this topic Procedures Procedure NamePriorityDate/TimeAssociated DiagnosisCommentsAORTIC ROOT ANGIOGRAM Pkbbmdh3004/23/2025 12:50 PM EST Nonrheumatic mitral valve regurgitation Nonrheumatic aortic valve insufficiency LEFT QZYVKVTOHRKMQQIVNhpuldj78/05/2025 12:50 PM EST Nonrheumatic mitral valve regurgitation Nonrheumatic aortic valve insufficiency CORONARY AMRNHGSSGNSQaidfua12/05/2025 12:50 PM EST Nonrheumatic mitral valve regurgitation Nonrheumatic aortic valve insufficiency ECG 12-UDQSValvpah01/05/2025 10:49 AM EST TRANSESOPHAGEAL ECHO (AGA) W/ LIMITED DOPPLER AND COLOR TDSZTbopybu65/06/2025 10:39 AM EST Nonrheumatic mitral valve regurgitation ECG 12 LEAD UNIT ZAWPWVNNEVuidpja94/15/2025 12:03 PM EDT Palpitations from Last 3 Months Results * CORONARY ANGIOGRAPHY, LEFT VENTRICULOGRAPHY, AORTIC ROOT ANGIOGRAM (04/23/2025 12:50 PM EST)Anatomical RegionLateralityModalityOtherSpecimen (Source) Anatomical Location / LateralityCollection Method / VolumeCollection Time Received Time Narrative 04/23/2025 12:58 PM EST PROCEDURE PHYSICIAN: Leland Richardson MD Clinical Presentation: 69 y.o. Female presents with a history of mitral valve and aortic valve regurgitation Final Impression: 1) 3+/4 mitral valve regurgitation 2) Mild aortic regurgitation in a setting of low normal arterial pressure (84/48 mmHg) 3) Normal LV end diastolic pressure of 14 mmHg 4) Normal coronary arteries Recommendations: 1) ??Referral to Dr. Quinteros at [facility] for mitral valve repair and possible aortic valve repair Procedures Performed: left heart catheterization, left ventriculography, aortography, coronary angiography, conscious sedation, ultrasound guidance for vascular access Procedure Description: The patient was brought to the cardiac catheterization lab in a fasting state. ??Informed written consent was obtained. ??she was prepped and draped in usual sterile fashion. ??Time-out was performed. ??she was given Versed and fentanyl for sedation. ?? 1% lidocaine was infiltrated over the left radial artery. ??A 6-Cambodian sheath was placed in left radial artery. ?? Left heart catheterization, aortography and coronary angiography was performed with a JL4and a JR4 and angled pigtail catheter. After completion of the procedure all catheters and wires were removed. ?? The left radial sheath was removed and a TR band was applied to obtain hemostasis. Specimens Removed: None Complications: None Hemodynamic Data: ?? LV: 84/14 mmHg AO: 84/48/66 mmHg Coronary Angiogram: Left main: normal LAD: normal LCX: normal RCA: normal Study Details Nonrheumatic mitral valve regurgitation [I34.0]Nonrheumatic aortic valve insufficiency [I35.1] Authorizing ProviderResult TypeResult StatusChdougie Richardson MDCV CARDIAC CATH PROCEDURESFinal Result * ECG 12 lead (04/23/2025 10:49 AM EST)ComponentValueRef RangeTest Method Analysis TimePerformed AtPathologist SignatureVentricular Jnlk34HHIPK MUSE Atrial Kzdb34CULCY MUSEPR Vnzjcxid244hoWU MUSEQRS TBKKALOE51ddUI MUSEQT Urqjlkfi550csKQ MUSEQTC CALCULATION(BAZETT)442msGE MUSEP Tcdi60phjitrtTO MUSE W-Rqfu-42gbesrnvLE MUSET Wave Tixs77btzpjioWQ MUSESpecimen (Source)Anatomical Location / LateralityCollection Method / VolumeCollection TimeReceived Time 04/23/2025 10:44 AM EST04/23/2025 11:02 AM EST Impressions GE MUSE - 04/23/2025 11:02 AM EST Sinus bradycardia Otherwise normal ECG No previous ECGs available Confirmed by Juwan Ortiz ([id number]) on 04/23/2025 11:02:14 AM Narrative Procedure Note Juwan Ortiz MD - 04/23/2025 IMPRESSION: Sinus bradycardia Otherwise normal ECG No previous ECGs available Confirmed by Juwan Ortiz ([id number]) on 04/23/2025 11:02:14 AM Authorizing ProviderResult TypeResult Milton Richardson MDECG ORDERABLES Final ResultPerforming OrganizationAddressCity/State/ZIP CodePhone Number GE MUSE * TRANSESOPHAGEAL ECHO (AGA) W/ LIMITED DOPPLER AND COLOR FLOW (03/25/2025 10:39 AM EST)Anatomical RegionLateralityModalityOtherSpecimen (Source)Anatomical Location / LateralityCollection Method / VolumeCollection TimeReceived Time 03/25/2025 9:39 AM EST Narrative 03/25/2025 2:01 PM EST 1 [facility] Heart Station [address] [place] [address] [phone] (fax) Transesophageal Echocardiogram-[facility] Name: ALESHA BONILLA Study Date: 03/25/2025 09:39 AM B/P: 92 mmHg/59 mmHg HR: 68 bpm Date of : 1955 Location: [facility] Height: 66 in. Age: 69 year(s) Patient Room: Weight: 139 lb. Gender: Female Patient Status: OutPt BSA: 1.71 m2 Indication: Mitral regurgitation, aortic insufficiency Examination: AGA/Limited Doppler/CFI, 3D images, Agitated Saline Image Quality: Good Patient Consent: Informed, written consent was obtained for the procedure Exam Location: A AGA was performed in the Correctional Medicine Physician without complications Anesthesia Pharyngeal anesthesia with viscous [...] No pericardial effusion. Procedure Staff Reading Group: [facility] Referring Physician: FAY PASCAL ??Auto Body Repairer Fiberglass: GOMEZ Ojeda, RDCS ??Ordering Physician: LELAND RICHARDSON ?? Procedure Note Antionette Stafford MD - 03/25/2025 1 MD [facility] Heart Station [address] [facility] [place] [address] [phone] (fax) Transesophageal Echocardiogram-[facility] Name: ALESHA BONILLA Study Date: 03/25/2025 09:39 AM B/P: 92 mmHg/59 mmHg HR: 68 bpm Date of : 1955 Location: [facility] Height: 66 in. Age: 69 year(s) Patient Room: Weight: 139 lb. Gender: Female Patient Status: OutPt BSA: 1.71 m2 Indication: Mitral regurgitation, aortic insufficiency Examination: AGA/Limited Doppler/CFI, 3D images, Agitated Saline Image Quality: Good Patient Consent: Informed, written consent was obtained for the procedure Exam Location: A AGA was performed in the Correctional Medicine Physician without complications Anesthesia Pharyngeal anesthesia with viscous [...] No pericardial effusion. Procedure Staff Reading Group: [facility] Referring Physician: FAY PASCAL Auto Body Repairer Fiberglass: GOMEZ Ojeda, RDCS Ordering Physician: LELAND RICHARDSON Authorizing ProviderResult TypeResult StatusChristopher Avinash [facility] ECHO PROCEDURESFinal Result * ECG 12 lead unit performed (03/03/2025 12:03 PM EDT)Specimen (Source) Anatomical Location / LateralityCollection Method / VolumeCollection Time Received Time Narrative Authorizing ProviderResult TypeResult StatusChristopher Avinash [facility] ORDERABLES Final Result from Last 3 Months Insurance Care Teams Team MemberRelationshipSpecialtyStart DateEnd Date Fay Pascal MD [address] [place] [address] PCP - GeneralNurse Bwafqfnibyfu43/14/25
--- OUTSIDE RECORDS SUMMARY | 2025-05-12 08:50 | XMS_ITS | Encounter Summary ---
Author Organization [facility] Address [address] [place] [address] Care Team Providers Care Manager Statistical Name Role Phone Fay Pascal MD Primary Care Provider [phone] Reason for Referral * Consultation (Routine) - Pending ReviewSpecialtyDiagnoses / ProceduresReferred By ContactReferred To ContactCardiology Diagnoses Nonrheumatic mitral valve regurgitation Nonrheumatic aortic valve insufficiency Procedures [place] OFFICE/OUTPATIENT [facility] 60 MINUTES Kaveh Da Silva MD [address] [place] [address] Phone: tel: fax: [facility] [address] [place] [address] Phone: tel: fax: Referral IDStatusReasonStart DateExpiration DateVisits RequestedVisits [id number] Review Specialty Services Required Encounter Details DateTypeDepartmentCare Team (Latest Contact Info)Sxwcnsnizii32/16/2025Orders Only [facility] [address] [place] [address] Jaelyn Wahl MA Nonrheumatic mitral valve regurgitation (Primary Dx); Nonrheumatic aortic valve insufficiency Social History Tobacco UseTypesPacks/DayYears UsedDateSmoking Tobacco: NeverSmokeless Tobacco: NeverAlcohol UseStandard Drinks/WeekCommentsNot Currently0 (1 standard drink = 0.6 oz pure alcohol)PHQ-2AnswerDate RecordedPatient Health Questionnaire-2 Score CommentsNoSex and Gender InformationValueDate RecordedSex Assigned at LghhdZlvdoq34/10/2025 11:21 AM EDTLegal BdeZutdkt34/22/2024 2:50 PM ESTGender MzvakehaKpqjes70/10/2025 11:21 AM EDTSexual OrientationHeterosexual or Fsilpysn65/10/2025 11:21 AM EDTdocumented as of this encounter Plan of Treatment DateTypeDepartmentCare Team (Latest Contact Info)Ysssyryomen76/07/2026 10:40 AM ESTOffice Visit [facility] [address] [place] [address] Kaveh Da Silva MD [address] [place] [address] NameTypePriorityAssociated DiagnosesOrder ScheduleAmbulatory referral to Structural HeartOutpatient ReferralRoutine Nonrheumatic mitral valve regurgitation Nonrheumatic aortic valve insufficiency Expected: 05/04/2025 (Approximate), Expires: 11/02/2025documented as of this encounter Visit Diagnoses Diagnosis Nonrheumatic mitral valve regurgitation- Primary Nonrheumatic aortic valve insufficiency documented in this encounter Care Teams Team MemberRelationshipSpecialtyStart DateEnd Date Fay Pascal MD [address] [place] [address] PCP - GeneralNurse Efgqwsyzcmia68/14/25documented as of this encounter
--- OUTSIDE RECORDS SUMMARY | 2025-05-12 08:50 | XMS_ITS | Clinical Summary ---
Author Organization [facility] Address [address] [place] [address] Care Team Providers Care Plan Checker Name Role Phone Phoenix Gannon MD Primary Care Provider [phone] Kaveh Da Silva MD Unavailable [phone] Sabra Quinteros MD Unavailable [phone] Allergies No known active allergies Medications MedicationSigDispense QuantityRefillsLast FilledStart DateEnd DateStatus LEVOTHYROXINE SODIUM (LEVOTHYROXINE ORAL) Take by mouth.Active CALCIUM CARBONATE/VITAMIN D3 (CALCIUM + D ORAL) Take by mouth.Active CALCIUM CARBONATE/VITAMIN D3 (VITAMIN D-3 ORAL) Take by mouth.Active Encounters DateTypeDepartmentCare MjlkDislqmvwflq23/17/2025Transcribe Orders Referring Physician [facility] [place] [address] Kaveh Da Silva MD Nonrheumatic mitral valve regurgitation (Primary Dx); Nonrheumatic aortic valve fstpgxubendhh78/12/2025Telephone Cardiothoracic [address] [place], [place] [phone] Sabra Quinteros MD Insurance Zkmmvyy6004/27/2025Telephone Cardiothoracic [address] [phone] Sabra Quinteros MD Referral Informationfrom Last 3 Months Social History Tobacco UseTypesPacks/DayYears UsedDateSmoking Tobacco: NeverSmokeless Tobacco: Never Tobacco Cessation:Counseling Given: Not Answered Alcohol UseStandard Drinks/WeekCommentsNot Currently0 (1 standard drink = 0.6 oz pure alcohol)Area Deprivation IndexAnswerDate RecordedNational Score (1-100), lower number is lower nctn539407/30/2022State Score (1-10), lower number is lower riskNot on file3Data from: https://www.neighborhoodatlas.medicine.[facility].edu/. Last address used for hvby[address]ug[address] [facility]07/30/2022CommentsUnknownSex and Gender InformationValueDate RecordedSex Assigned at BirthNot on fileLegal SexFemale 04/20/2012 10:02 AM ESTGender IdentityNot on fileSexual OrientationNot on file Last Filed Vital Signs Vital SignReadingTime TakenCommentsBlood Gsxmtzpq089/59007/30/2022 9:36 AM EDT Qrgvx058007/30/2022 9:36 AM FPBTlykmreofbf44.6 ??C (97.8 ??F)07/30/2022 9:36 AM EDTRespiratory Rate--Oxygen Oltvpsmjgf64%07/30/2022 9:36 AM EDTInhaled Oxygen Concentration--Dtordi88.8 kg (145 lb)07/30/2022 9:36 AM PPINotfzj719.6 cm (5' 6 )07/30/2022 9:36 AM EDTBody Mass Index23.403 9:36 AM EDT Plan of Treatment Health MaintenanceDue DateLast DoneCommentsAnxiety Wzceymsiz38/28/1974Depression Xqsvxbugd52/28/1974Hepatitis C Nyuccgxzo21/28/1974DTaP,Tdap,Td Vaccine (1 - Tdap)1974CT Uwdieelfyueb93/28/2001Cologuard (FIT-DNA)2000Colonoscopy 2000Colorectal Cancer Bagtsulag30/28/2001Fecal Occult Blood2000Lipid Cfcglipsw15/28/8078Warngvsnnvvup15/28/2001Shingrix Vaccine (1 of 2)2005 Medicare Annual Wellness Visit06/20/2020one Density Gsikjcedt37/28/2021 Mammogram Yvgoqsgui05, 03/29/2017Diabetes Gtgocnuxy96/07/2024 02/23/2021dvance Directive Koicbuobyb35/01/2025ovid-19 Vaccine (2024- season)2025Influenza Vaccine (#1)2025RSV Vaccine (1 - 1-dose 75+ series)2030neumococcal Vaccine: 50+Ydakmncbm13/11/2022, 07/15/2014, 08/18/2009 Insurance * Guarantor: Alesha Barnes AAccount TypeRelation to PatientDate of BirthPhone Billing AddressPersonal/ZathmnSwfy28/28/1956 [facility] [place] [address] Care Teams Team MemberRelationshipSpecialtyStart DateEnd Phoenix Gannon MD [address] [place] [address] PCP - GeneralFamily Medicine07/26/22 Kaveh Da Silva MD [address] [place] [address] MlkafzayiOitrxieqyz02/9/25 Sabra Quinteros MD [address] [place] [address] SurgeonCardiac Surg04/27/25
--- NOTE | 2025-05-12 09:20 | MM_ITS ---
Patient Name: LITO BONILLA MR#: [id number] : 1955 Exam Date: 05/12/2025 Ordering Doctor: YAJAIRA BEARD CNP RADIOLOGY REPORT PROCEDURE: MM TOMOSYNTHESIS SCREENING BI COMPARISON: MM TOMOSYNTHESIS SCREENING BI, 05/11/2024. MM TOMOSYNTHESIS SCREENING BI, 05/10/2023. MG MAMM SCREEN 3D NEETA CAD, 05/09/2022. MG MAMM SCREEN NEETA W CAD, 03/29/2017. INDICATIONS: Screening Calculator Name NCI Breast Cancer Risk Assessment Tool 5 Year Breast Cancer Risk 1.10% Lifetime Breast Cancer Risk 3.50% Personal Breast Cancer No Personal Ovarian Cancer No Treatments None Family Cancers Father with lung cancer at age 43; Brother with liver cancer at age 65; Brother with colon/lung cancer at age 46; Brother with lung cancer at age 74. LOCATION: [facility] BREAST COMPOSITION: There are scattered areas of fibroglandular density. FINDINGS: DIAGNOSTIC CATEGORY 1--NEGATIVE. RIGHT BREAST: No significant suspicious finding. LEFT BREAST: No significant suspicious finding. RECOMMENDATIONS: ROUTINE MAMMOGRAM AND CLINICAL EVALUATION IN 12 MONTHS. Dictated by: Thom Shah MD on 05/12/2025 at 12:46 Approved by: Thom Shah MD on 05/12/2025 at 12:47
== END 2025-05-12 08:49 | disposition home or self-care (01) ==
LOC: MAMMO 08:48
PROVIDERS: PCP Nurse Practitioner; Visit Provider Nurse Practitioner
DX: M81.0 Age-related osteoporosis without current pathological fracture (principal); Z12.31 Encounter for screening mammogram for malignant neoplasm of breast; Z80.1 Family history of malignant neoplasm of trachea, bronchus and lung; Z80.8 Family history of malignant neoplasm of other organs or systems
CPT/HCPCS: 77063; 77067; 77080